=== PATIENT | male | born 1975 | race Hispanic/Latino ===

== ENCOUNTER 2018-03-12 10:21 | Day surgery (SDC) | payer OTHER ==
[2018-03-10 11:12] LABS: Absolute Monocytes 0.4 K/uL (0.1-1.3); Absolute Neutrophil 4.3 K/uL (1.8-8.0); Eosinophils % 3.6 % (0-4.4); Hematocrit 37.9 % (39.6-49.0); Lymphocytes % 27.9 % (15.3-44.8); MCH 31.4 pg (27.0-35.0); MCV 88.1 fL (80-100); MPV 8.1 fL (7.6-11.3); Monocytes % 6.3 % (3.3-12.3); RBC Red Blood Cell Count 4.31 M/uL (4.33-5.43)
[2018-03-10 11:26] LABS: Urine Appearance CLEAR; Urine Bilirubin NEGATIVE (NEG); Urine Blood 2+ (NEG); Urine Color YELLOW; Urine Glucose 1+ (NEG); Urine Protein NEGATIVE (NEG); Urine Urobilinogen 0.2 mg/dL (0.2-1.0)
[2018-03-10 11:28] LABS: Protime INR 1.06
[2018-03-10 11:33] LABS: Urine Microscopic Reflex ORDER UMIC
[2018-03-10 11:41] LABS: Urine Bacteria <20 /HPF (NONE SEEN); Urine Culture Reflex Order NOT NEEDED; Urine RBC 20-50 /HPF (NONE SEEN)
[2018-03-12] MEDS ORDERED: NA CHLORIDE 0.9% 1,000 ML ONE (10:41)
[2018-03-12 10:58] VITALS: O2SAT 97
[2018-03-12] MEDS ORDERED: MIDAZOLAM HCL 2 MG/2 ML INJ ONE (11:45)
[2018-03-12] MEDS ORDERED: PROPOFOL 200 MG/20 ML VIAL IV ONE (11:45)
[2018-03-12] MEDS ORDERED: LIDOCAINE 1% MPF 30 ML VIAL ONE (11:52)
[2018-03-12 14:19] VITALS: BP 136/84; TEMP 97.3
--- NOTE | 2018-03-17 09:36 | P.OP ---
Preoperative diagnosis: right hallux osteomyelitis Primary procedure: right hallux amputation Findings: as above Operative Technique: Patient placed under anesthesia with local anesthetic. Ulceration noted plantar aspect of right hallux. Patient prepped and draped in aseptic manor. linear incision placed from dorsal to plantar aspect of hallux stump and carried straight to bone. Utilizing sharp dissection the hallux was disarticulated from the 1st mpj. No gross signs of infection noted. The operative sited was irrigated with copious amounts of saline followed by remodeling of the wound margins to allow for closure. The incision site was closed utilizing 3-0 prolene and a sterile dressing was applied. Complications: None Transferred to: Recovery Room Condition: Good
== END 2018-03-12 13:55 | disposition home or self-care (01) ==
LOC: OR 10:21
PROVIDERS: ATTEND Podiatrist Foot & Ankle Surgery
PROC: 0Y6P0Z0 Detachment at Right 1st Toe, Complete, Open Approach (ICD-10-PCS; principal; 2018-03-12 12:00)
DX: E11.69 Type 2 diabetes mellitus with other specified complication (principal); M86.8X7 Other osteomyelitis, ankle and foot; E11.621 Type 2 diabetes mellitus with foot ulcer; G47.33 Obstructive sleep apnea (adult) (pediatric); Z79.4 Long term (current) use of insulin
CPT/HCPCS: 28820; 36415; 82962; 85025; 85610; 85730; 88305; 88311; J2250; J7030; 81003; 81015

== ENCOUNTER 2018-12-07 20:10 | Inpatient (IN) | payer OTHER ==
[2018-12-07 21:13] LABS: Urine Bacteria <20 /HPF (NONE SEEN); Urine Culture Reflex Order REFLEXED; Urine Sperm PRESENT (NONE SEEN)
[2018-12-07 21:14] LABS: Absolute Lymphocytes (CBC) 1.3 K/uL (0.7-4.9); Basophils % 0.2 % (0-1.3); Eosinophils % 0.1 % (0-4.4); Hematocrit 38.3 % (39.6-49.0); Lymphocytes % 8.1 % (15.3-44.8); MPV 8.4 fL (7.6-11.3); Monocytes % 5.5 % (3.3-12.3); RBC Red Blood Cell Count 4.31 M/uL (4.33-5.43)
[2018-12-07 21:15] LABS: Urine Blood TRACE (NEG); Urine Glucose 2+ (NEG); Urine Protein 2+ (NEG); Urine Specific Gravity 1.015 (1.005-1.030)
[2018-12-07 21:28] LABS: Albumin 3.3 g/dL (3.4-5.0); Bilirubin Direct 0.3 mg/dL (0-0.2); Bilirubin Total 1.5 mg/dL (0.2-1.0); Potassium 3.9 mmol/L (3.5-5.1); Protein, Total 7.1 g/dL (6.4-8.2)
[2018-12-07 21:37] LABS: Blood Morphology Comment NOT SEEN (NOT SEEN); Platelet Estimate ADEQ; Urine White Blood Cell Casts OK
--- NOTE | 2018-12-07 23:09 | ER ---
Nurse's Notes [facility] Name: Maik Stock Age: 43 yrs Sex: Male : 1975 Arrival Date: 12/07/2018 Time: 20:14 Bed 19 Private MD: Diagnosis: Acute appendicitis Presentation: 12/07 20:16 Presenting complaint: Patient states: RLQ abdominal pain that radiates to the back. aj1 Denies N/V/D. Patient reports that he felt like he was running fever but he didn't check it. Transition of care: patient was not received from another setting of care. Onset of symptoms was December 06, 2018. Risk Assessment: Do you want to hurt yourself or someone else? Patient reports no desire to harm self or others. Initial Sepsis Screen: Does the patient meet any 2 criteria? HR > 90 bpm. No. Patient's initial sepsis screen is negative. Does the patient have a suspected source of infection? Yes: Acute abdominal pain. Care prior to arrival: None. 20:16 Method Of Arrival: Ambulatory aj 20:16 Acuity: JACQUE 3 aj1 Triage Assessment: 20:19 General: Appears in no apparent distress. uncomfortable, Behavior is calm, cooperative, aj1 appropriate for age. Pain: Complains of pain in right lower quadrant Pain radiates to back Pain currently is 8 out of 10 on a pain scale. Neuro: Level of Consciousness is awake, alert, obeys commands, Oriented to person, place, time, situation. Cardiovascular: Patient's skin is warm and dry. Respiratory: Airway is patent Respiratory effort is even, unlabored, Respiratory pattern is regular, symmetrical. GI: Reports lower abdominal pain, nausea. Historical: - Allergies: 20:19 No Known Allergies; aj1 - Home Meds: 20:19 Tresiba FlexTouch U-100 subcutaneous subcutaneous [Active]; Metformin Oral [Active]; aj1 - PMHx: 20:19 Diabetes - NIDDM; aj1 - Immunization history:: Flu vaccine status is unknown. - Social history:: Smoking status: Patient/guardian denies using tobacco. - Ebola Screening: : Patient denies travel to an Ebola-affected area in the 21 days before illness onset. Screenin:37 Abuse screen: Denies threats or abuse. Nutritional screening: No deficits noted. jd3 Tuberculosis screening: No symptoms or risk factors identified. Fall Risk Ambulatory Aid- None/Bed Rest/Nurse Assist (0 pts). Gait- Normal/Bed Rest/Wheelchair (0 pts) Mental Status- Oriented to own ability (0 pts). Total Greenwood Fall Scale indicates No Risk (0-24 pts). Assessment: 20:29 General: Appears uncomfortable, Behavior is calm, cooperative, appropriate for age. jd3 Pain: Complains of pain in right lower quadrant Pain radiates to back Quality of pain is described as radiating, sharp. Neuro: Level of Consciousness is awake, alert, obeys commands, Oriented to person, place, time, situation, Appropriate for age. Cardiovascular: Denies chest pain, Capillary refill < 3 seconds Patient's skin is warm and dry. Respiratory: Airway is patent Respiratory effort is even, unlabored, Respiratory pattern is regular, symmetrical, Breath sounds are clear bilaterally. Denies shortness of breath. GI: Abdomen is round non-distended, Bowel sounds present X 4 quads. Abd is soft X 4 quads Abdomen is tender to palpation in right lower quadrant Reports lower abdominal pain, Patient currently denies constipation, diarrhea, vomiting. : No signs and/or symptoms were reported regarding the genitourinary system. EENT: No signs and/or symptoms were reported regarding the EENT system. Derm: Skin is intact, Skin is dry, Skin is normal, Skin temperature is warm. Musculoskeletal: Circulation, motion, and sensation intact. Range of motion: intact in all extremities. 22:13 Reassessment: Patient appears in no apparent distress at this time. No changes from jd3 previously documented assessment. Patient and/or family updated on plan of care and expected duration. Pain level reassessed. Patient is alert, oriented x 3, equal unlabored respirations, skin warm/dry/pink. awaiting results. 23:17 Reassessment: Patient appears in no apparent distress at this time. Patient and/or jd3 family updated on plan of care and expected duration. Pain level reassessed. Patient is alert, oriented x 3, equal unlabored respirations, skin warm/dry/pink. awaiting room assignment. 12/08 00:10 Reassessment: Patient appears in no apparent distress at this time. Patient and/or jd3 family updated on plan of care and expected duration. Pain level reassessed. Patient is alert, oriented x 3, equal unlabored respirations, skin warm/dry/pink. reported understanding of need for admission. 00:33 Reassessment: Patient appears in no apparent distress at this time. Patient and/or jd3 family updated on plan of care and expected duration. Pain level reassessed. Patient is alert, oriented x 3, equal unlabored respirations, skin warm/dry/pink. report given to Carmita CULLEN. Vital Signs: 12/07 20:19 BP 111 / 49; Pulse 51; Resp 18; Temp 99.9(O); Pulse Ox 98% on R/A; Weight 99.79 kg (R); aj1 Height 5 ft. 10 in. (177.80 cm) (R); Pain 8/10; 22:13 BP 94 / 64; Pulse 50; Resp 16 S; Pulse Ox 99% on R/A; jd3 23:18 BP 105 / 40; Pulse 55; Resp 17 S; Pulse Ox 97% on R/A; jd3 12/08 00:11 BP 100 / 45; Pulse 86; Resp 17 S; Pulse Ox 98% on R/A; jd3 00:34 Temp 99.5(O); jd3 00:40 BP 93 / 63; jd3 12/07 20:19 Body Mass Index 31.57 (99.79 kg, 177.80 cm) [facility] ED Course: 12/07 20:14 Patient arrived in ED. do 20:18 Triage completed. aj1 20:19 Arm band placed on Patient placed in an exam room. aj1 20:24 Arnol Brandt MD is Attending Physician. gs 20:27 Colt Barney, SUBHASH is Primary Nurse. jd3 20:38 Patient has correct armband on for positive identification. Bed in low position. Call j light in reach. Side rails up X 1. Adult w/ patient. 21:01 Urine Microscopic Only Sent. jd3 21:05 Inserted saline lock: 22 gauge in right antecubital area, using aseptic technique. jd3 Blood collected. 22:06 CT Stone Protocol In Process Unspecified. EDMS 23:08 Shakir Murrieta MD is Hospitalizing Provider. gs 23:17 No provider procedures requiring assistance completed. Patient admitted, IV remains in jd3 place. 23:44 Chest Single View XRAY In Process Unspecified. EDMS Administered Medications: 23:15 Drug: NS 0.9% 1000 ml Route: IV; Rate: 1 bolus; Site: right antecubital; [facility] 12/08 00:35 Follow up: Response: No adverse reaction; IV Status: Completed infusion; IV Intake: jd3 1000ml 12/07 23:15 Drug: NS 0.9% 1000 ml Route: IV; Rate: 125 ml/hr; Site: right antecubital; j 12/08 00:36 Follow up: Response: No adverse reaction; IV Status: Infusion continued upon admission [facility] 12/07 23:16 Drug: Mefoxin 1 grams Route: IVPB; Infused Over: 30 mins; Site: right antecubital; [facility] 23:57 Follow up: Response: No adverse reaction; IV Status: Completed infusion; IV Intake: [id number] Intake: 23:57 IV: 50ml; Total: 50ml. [facility] 12/08 00:35 IV: 1000ml; Total: 1050ml. jd3 Outcome: 12/07 23:08 Decision to Hospitalize by Provider. 12/08 00:34 Condition: stable jd3 Instructed on the need for admit, Demonstrated understanding of instructions. 00:34 Admitted to Med/surg accompanied by nurse, via wheelchair, room 422, with chart, Report jd3 called to Carmita CULLEN 00:51 Patient left the ED. jd3 Signatures: Dispatcher [employer] EDJody Man, RN RN aj1 Smita Upton Gregory, MD MD gs Davies, Jonathon, RN RN jd3 Corrections: (The following items were deleted from the chart) 00:12 00:11 BP 100 / 45; Pulse 47bpm; Resp 17bpm; Spontaneous; Pulse Ox 98% RA; jd3 jd3
--- NOTE | 2018-12-07 23:09 | EDPHYS ---
Physician Documentation [facility] Name: Maik Stock Age: 43 yrs Sex: Male : 1975 Arrival Date: 12/07/2018 Time: 20:14 Bed 19 Private MD: ED Physician Arnol Brandt HPI: 12/07 23:04 This 43 yrs old Male presents to ER via Ambulatory with complaints of gs Abdominal Pain. 23:04 The patient presents with abdominal pain right lower quadrant. Onset: The gs symptoms/episode began/occurred this morning. The symptoms do not radiate. Associated signs and symptoms: Pertinent negatives: dysuria, fever. The symptoms are described as crampy, sharp. Modifying factors: the symptoms are aggravated by nothing. Severity of pain: At its worst the pain was severe in the emergency department the pain is unchanged. The patient has not experienced similar symptoms in the past. The patient has not recently seen a physician. Historical: - Allergies: 20:19 No Known Allergies; aj1 - Home Meds: 20:19 Tresiba FlexTouch U-100 subcutaneous subcutaneous [Active]; Metformin Oral [Active]; aj1 - PMHx: 20:19 Diabetes - NIDDM; aj1 - Immunization history:: Flu vaccine status is unknown. - Social history:: Smoking status: Patient/guardian denies using tobacco. - Ebola Screening: : Patient denies travel to an Ebola-affected area in the 21 days before illness onset. ROS: 23:04 All other systems are negative. gs Exam: 23:04 Head/Face: Normocephalic, atraumatic. Eyes: Pupils equal round and reactive to light, gs extra-ocular motions intact. Lids and lashes normal. Conjunctiva and sclera are non-icteric and not injected. Cornea within normal limits. Periorbital areas with no swelling, redness, or edema. ENT: Nares patent. No nasal discharge, no septal abnormalities noted. Tympanic membranes are normal and external auditory canals are clear. Oropharynx with no redness, swelling, or masses, exudates, or evidence of obstruction, uvula midline. Mucous membranes moist. Neck: Trachea midline, no thyromegaly or masses palpated, and no cervical lymphadenopathy. Supple, full range of motion without nuchal rigidity, or vertebral point tenderness. No Meningismus. Chest/axilla: Normal chest wall appearance and motion. Nontender with no deformity. No lesions are appreciated. Cardiovascular: Regular rate and rhythm with a normal S1 and S2. No gallops, murmurs, or rubs. Normal PMI, no JVD. No pulse deficits. Respiratory: Lungs have equal breath sounds bilaterally, clear to auscultation and percussion. No rales, rhonchi or wheezes noted. No increased work of breathing, no retractions or nasal flaring. Back: No spinal tenderness. No costovertebral tenderness. Full range of motion. Skin: Warm, dry with normal turgor. Normal color with no rashes, no lesions, and no evidence of cellulitis. MS/ Extremity: Pulses equal, no cyanosis. Neurovascular intact. Full, normal range of motion. Neuro: Awake and alert, GCS 15, oriented to person, place, time, and situation. Cranial nerves II-XII grossly intact. Motor strength 5/5 in all extremities. Sensory grossly intact. Cerebellar exam normal. Normal gait. 23:04 Constitutional: The patient appears alert, awake. 23:04 Constitutional: The patient appears uncomfortable. 23:04 Abdomen/GI: Palpation: moderate abdominal tenderness, in the right lower quadrant, rebound tenderness, is appreciated in the right lower quadrant, Indicators: Rovsing's sign is positive. Vital Signs: 20:19 BP 111 / 49; Pulse 51; Resp 18; Temp 99.9(O); Pulse Ox 98% on R/A; Weight 99.79 kg (R); aj1 Height 5 ft. 10 in. (177.80 cm) (R); Pain 8/10; 22:13 BP 94 / 64; Pulse 50; Resp 16 S; Pulse Ox 99% on R/A; jd3 23:18 BP 105 / 40; Pulse 55; Resp 17 S; Pulse Ox 97% on R/A; jd3 07/01 00:11 BP 100 / 45; Pulse 86; Resp 17 S; Pulse Ox 98% on R/A; jd3 00:34 Temp 99.5(O); jd3 00:40 BP 93 / 63; jd3 12/07 20:19 Body Mass Index 31.57 (99.79 kg, 177.80 cm) aj MDM: 12/07 20:41 Patient medically screened. gs 23:04 Differential diagnosis: appendicitis, bowel obstruction, diverticulitis, non-specific gs abd pain, pancreatitis. Data reviewed: vital signs, nurses notes, lab test result(s), radiologic studies. Response to treatment: the patient's symptoms have markedly improved after treatment, and as a result, I will discharge patient. 12/07 20:41 Order name: Urine Microscopic Only 12/07 20:41 Order name: Basic Metabolic Panel 12/07 20:41 Order name: CBC with Diff 12/07 20:41 Order name: Creatinine for Radiology 12/07 20:41 Order name: Hepatic Function; Complete Time: 22:17 12/07 20:41 Order name: Lipase; Complete Time: 22:17 12/07 20:51 Order name: Urine Microscopic Only; Complete Time: 22:17 [facility] 12/07 20:51 Order name: Basic Metabolic Panel; Complete Time: 22:17 [facility] 12/07 20:51 Order name: CBC with Automated Diff; Complete Time: 22:17 [facility] 12/07 20:51 Order name: Creatinine (Radiology Only); Complete Time: 22:17 [facility] 12/07 21:02 Order name: Urine Dipstick--Ancillary (enter results); Complete Time: 22:17 ar5 12/07 21:15 Order name: Urine Culture [facility] 12/07 21:18 Order name: CBC Smear Scan; Complete Time: 22:17 [facility] 12/07 23:10 Order name: PT-INR 12/07 20:41 Order name: Urine Dipstick-Ancillary (obtain specimen); Complete Time: 21:01 12/07 20:41 Order name: IV Saline Lock; Complete Time: 21:19 12/07 20:41 Order name: Labs collected and sent; Complete Time: 21:19 12/07 20:41 Order name: CT Stone Protocol 12/07 23:10 Order name: Chest Single View XRAY 12/07 23:10 Order name: EKG - Nurse/Tech; Complete Time: 23:57 12/07 23:21 Order name: NPO EDCO Administered Medications: 23:15 Drug: NS 0.9% 1000 ml Route: IV; Rate: 1 bolus; Site: right antecubital; jd3 12/08 00:35 Follow up: Response: No adverse reaction; IV Status: Completed infusion; IV Intake: jd3 1000ml 12/07 23:15 Drug: NS 0.9% 1000 ml Route: IV; Rate: 125 ml/hr; Site: right antecubital; jd3 12/08 00:36 Follow up: Response: No adverse reaction; IV Status: Infusion continued upon admission jd3 12/07 23:16 Drug: Mefoxin 1 grams Route: IVPB; Infused Over: 30 mins; Site: right antecubital; j 23:57 Follow up: Response: No adverse reaction; IV Status: Completed infusion; IV Intake: [id number] Disposition: 12/07/18 23:08 Hospitalization ordered by Shakir Murrieta for Inpatient Admission. Preliminary diagnosis is Acute appendicitis. - Bed requested for Telemetry/MedSurg (Inpatient). - Status is Inpatient Admission. jd3 - Condition is Stable. - Problem is new. - Symptoms have improved. UTI on Admission? No Critical care time excluding procedures: 23:04 Critical care time: Bedside Care: 10 minutes, Consultation: 10 minutes, Family gs Intervention: 10 minutes. Total time: 30 minutes Signatures: Dispatcher [employer] EDJody Man RN RN aj1 Nu Chua RN RN cg Arnol Brandt MD MD gs Davies, Jonathon, RN RN jd3 Corrections: (The following items were deleted from the chart) 23:54 23:08 Hospitalization Ordered by Shakir Murrieta MD for Inpatient Admission. Preliminary cg diagnosis is Acute appendicitis. Bed requested for Telemetry/MedSurg (Inpatient). Status is Inpatient Admission. Condition is Stable. Problem is new. Symptoms have improved. UTI on Admission? No. gs 12/08 00:51 12/07 23:54 12/07/2018 23:08 Hospitalization Ordered by Shakir Murrieta MD for Inpatient jd3 Admission. Preliminary diagnosis is Acute appendicitis. Bed requested for Telemetry/MedSurg (Inpatient). Status is Inpatient Admission. Condition is Stable. Problem is new. Symptoms have improved. UTI on Admission? No. cg
[2018-12-07] MEDS ORDERED: NA CHLORIDE 0.9% 50 ML IV ONE (23:17)
[2018-12-07] MEDS ORDERED: CEFOXITIN SODIUM 1 GM/VIAL ONE (23:17)
[2018-12-07] MEDS ORDERED: NA CHLORIDE 0.9% 2,000 ML ONE (23:17)
[2018-12-07] MEDS ORDERED: ONDANSETRON 4 MG/2 ML VIAL IV PRN (23:18)
[2018-12-07] MEDS ORDERED: MORPHINE 4 MG/ML SYR IV PRN (23:18)
[2018-12-08 00:02] LABS: Protime INR 1.16
[2018-12-08] MEDS: D5 0.45 NS 1,000 ML IV SCH ×2 (01:29→07:45)
[2018-12-08] MEDS ORDERED: CEFOXITIN SODIUM 1 GM/VIAL ONE (01:49)
[2018-12-08] MEDS: CEFOXITIN 1 GM in NA CHLORIDE 0.9% 100 ML IVPB SCH ×2 (01:56→06:09)
[2018-12-08] MEDS ORDERED: NA CHLORIDE 0.9% 100 ML IV ONE ×2 (02:11→06:19)
[2018-12-08] MEDS ORDERED: PROPOFOL 200 MG/20 ML VIAL IV ONE (07:07)
[2018-12-08] MEDS ORDERED: GLYCOPYRROLATE 0.2 MG/ML SYR ONE ×2 (07:08→08:04)
[2018-12-08] MEDS ORDERED: MIDAZOLAM HCL 2 MG/2 ML INJ ONE (07:08)
[2018-12-08] MEDS ORDERED: LIDOCAINE 2% MPF 5 ML VIAL ONE (07:09)
[2018-12-08] MEDS ORDERED: Ringers Lactate 0 ML IV ONE (07:09)
[2018-12-08] MEDS ORDERED: FENTANYL CITR 250 MCG/5 ML ONE (07:10)
[2018-12-08] MEDS ORDERED: NEOSTIGMINE 1 MG/ML -10 ML VIAL ONE (07:11)
[2018-12-08] MEDS ORDERED: ONDANSETRON 4 MG/2 ML VIAL ONE (07:11)
[2018-12-08] MEDS ORDERED: ROCURONIUM 50 MG/5 ML VIAL IV ONE (07:11)
[2018-12-08] MEDS ORDERED: NA CHLORIDE 0.9% 1,000 ML ONE (07:19)
[2018-12-08] MEDS ORDERED: EPHEDRINE SULF 50 MG/ML VIAL ONE (08:01)
--- NOTE | 2018-12-08 08:27 | RAD REPORT ---
EXAM DESCRIPTION: RAD - Chest Single View - 12/07/2018 11:44 pm CLINICAL HISTORY: Abdominal pain COMPARISON: None. TECHNIQUE: AP portable chest image was obtained 2323 hours . FINDINGS: Lungs are clear. Heart and vasculature are normal. No measurable pleural effusion and no p neumothorax. No acute bony abnormality seen. No acute aortic findings suspected. IMPRESSION: No acute cardiopulmonary process. No significant change from comparison.
--- NOTE | 2018-12-08 08:33 | P.BOP ---
Preoperative diagnosis: acute appendicitis, DM Postoperative diagnosis: same plus cardiac arrhytmias Primary procedure: Laparoscopic appendectomy Digital Technician: Laurita Dodge) Estimated blood loss: <10ccc Specimen: shital Findings: as above Anesthesia: General Complications: None Transferred to: Recovery Room Condition: Good
[2018-12-08] MEDS: CIPROFLOXACIN 400mg IV 400 MG/200 ML BAG IV SCH ×2 (09:45→20:08)
[2018-12-08] MEDS: HYDROCODONE/APAP 7.5/325 MG TAB PO PRN ×2 (09:45→20:10)
[2018-12-08] MEDS: NA CHLORIDE 0.9% 1,000 ML IV SCH ×2 (09:45→20:08)
--- NOTE | 2018-12-08 10:04 | RAD REPORT ---
EXAM DESCRIPTION: CT - Stone Protocol - 12/08/2018 12:51 am ADDENDUM #1 ADDENDUM: THIS REPORT CONTAINS FINDINGS THAT MAY BE CRITICAL TO PATIENT'S CARE: The findings were verbally discussed via telephone conference with Arnol Brandt by Dr. Beasley on 10:19 PM CDT. The results were acknowledged and understood. Electronically signed by: Jagdeep Beasley DO 12/07/2018 10:19 PM CDT End of Addendum EXAM DESCRIPTION: CT Abdomen and Pelvis Without Intravenous Contrast CLINICAL HISTORY: The patient is 43 years old and is Male; ABD PAIN TECHNIQUE: Axial computed tomography images of the abdomen and pelvis without intravenous contrast. Sagittal and coronal reformatted images were created and reviewed. This CT exam was performed usi ng one or more of the following dose reduction techniques: automated exposure control, adjustment o f the mA and/or kV according to patient size, and/or use of iterative reconstruction technique. COMPARISON: None. FINDINGS: LUNG BASES: Bibasilar atelectasis versus scarring. HEART: Mild coronary calcifications. ABDOMEN: LIVER: Unremarkable. GALLBLADDER AND BILE DUCTS: Unremarkable. No calcified stones. No ductal dilation. PANCREAS: Unremarkable. No ductal dilation. SPLEEN: Unremarkable. No splenomegaly. ADRENALS: Unremarkable. No mass. KIDNEYS AND URETERS: Possible punctate nonobstructive left renal stones. No hydronephrosis or hydr oureter. STOMACH AND BOWEL: Unremarkable. No obstruction. No mucosal thickening. PELVIS: APPENDIX: Diffuse thickening of the appendix measuring up to 1 cm in transverse dimension. Periapp endiceal stranding is also noted. No pneumoperitoneum or fluid collection. BLADDER: Mild thickening of the bladder wall which may be due to underdistention. No stones. REPRODUCTIVE: Unremarkable as visualized. ABDOMEN and PELVIS: INTRAPERITONEAL SPACE: See above. BONES/JOINTS: Suggested mild osteopenia. No acute fracture. No dislocation. SOFT TISSUES: Unremarkable. VASCULATURE: Unremarkable. No abdominal aortic aneurysm. LYMPH NODES: Unremarkable. No enlarged lymph nodes. IMPRESSION: 1. Findings compatible with acute appendicitis. No perforation or abscess formation. 2. Punctate nonobstructive left nephrolithiasis. 3. Bibasilar atelectasis versus scarring and mild coronary calcifications. Electronically signed by: Jagdeep Beasley DO 12/07/2018 10:16 PM CDT Due to temporary technical issues with the PACS/Fluency reporting system, reports are being signed by the in house radiologist as a courtesy to ensure prompt reporting. The interpreting radiologist is f ully responsible for the content of the report.
[2018-12-08] MEDS: METRONIDAZOLE 500mg IVPB 500 MG/100 ML BAG IV SCH ×2 (11:46→17:06)
[2018-12-08] MEDS ORDERED: CEFOXITIN/SWI 1gm 1 GM/10 ML SYR IV SCH (12:00)
--- NOTE | 2018-12-08 18:45 | HP ---
Date of Admission: 12/07/2018 Diagnosis: Acute appendicitis. History Of Present Illness: This is a 43-year-old patient came early this morning to the ER complain ing of periumbilical pain associated with nausea and bloating. He does not remember pain in this are a before. He denies any dysuria, hematuria, hematochezia, or melena. He denies any recent traveling out of the country. Denies any family member sick at home. The patient has a history of nonhealing wounds or slow healing of wounds on the lower extremities that is how we know him in the past. Allergies: NONE. Medications: Include Tresiba, it is a diabetes medication. Past Medical History: Insulin-dependent diabetes. Social History: He does not smoke. He does not drink alcohol. Family History: Noncontributory. Review of Systems: Ten points, otherwise unremarkable. Physical Examination: General: The patient is awake and alert. HEENT: Pupils are equal and reactive, anicteric. Neck: Supple. Chest: Clear. Heart: S1, S2. Abdomen: Right lower quadrant and periumbilical tenderness. Rectal: Deferred. Extremity: Good capillary refill. Neuro: Cranial nerves 2 through 12 grossly within normal limits. Laboratory Data: The patient has WBC count of 16.1 with hemoglobin of 12.8, INR is 1.16, and glucose 285, BUN of 21. CAT scan of the abdomen and pelvis, official result still pending. Although preliminary shows findin gs compatible with acute appendicitis. [place] to have a left kidney stone. Assessment: This is a 43-year-old patient with acute appendicitis, diabetes and kidney stones. The patient fully explained the benefits, alternatives, and risks of laparoscopic, possible open appendec cesar which include but are not limited to infection, bleeding, damage to adjacent structures, anesthe luma complication, [place], even . He also understands this may not relieve any symptoms. He might n eed more than one surgical intervention. He understands the importance of glucose control since gluc ose is elevated. We are going to get the hospitalist to see this patient and address the issue of di abetes since we noted that even on his medications it was a little bit too high. May be related to t his acute disease of may be that he just not well controlled. He was also encouraged to follow with his primary doctor. From the kidney stone he was explained to discuss that with his urologist as an outpatient. VANESSA Voice ID: [id number]
--- NOTE | 2018-12-08 19:44 | EKG ---
Test Date: 2018-12-07 Test Time: 23:38:27 Head Of Digital: FLORES MEASUREMENT RESULTS: Intervals: Rate: 91 PA: 166 QRSD: 98 QT: 376 QTc: 462 Wilder: P: 52 PA: 166 QRS: 57 T: 87 INTERPRETIVE STATEMENTS: Sinus rhythm with frequent premature ventricular complexes Prolonged QT Abnormal ECG No previous ECG available for comparison Electronically Signed On 12-08-18 19:40:40 CDT by Aaron Joyce
[2018-12-09] MEDS: HYDROCODONE/APAP 7.5/325 MG TAB PO PRN ×2 (00:42→05:32)
[2018-12-09] MEDS: METRONIDAZOLE 500mg IVPB 500 MG/100 ML BAG IV SCH ×3 (00:42→12:13)
[2018-12-09] MEDS: CIPROFLOXACIN 400mg IV 400 MG/200 ML BAG IV SCH (08:31)
--- NOTE | 2018-12-09 11:29 | ECHO ---
HEIGHT: 5 ft 10in WEIGHT: 219 lb oz DATE OF STUDY: 12/09/[address]: Aaron Joyce MD 2-DIMENSIONAL: YES M.MODE: YES DOPPLER: YES COLOR FLOW: YES TDS: NO PORTABLE: NO DEFINITY: NO BUBBLE STUDY: NO DIAGNOSIS: PREMATURE VENTRICULAR COMPLEXES/ ABNORMAL EKG CARDIAC HISTORY: CATHERIZATION: NO SURGERY: NO PROSTHETIC VALVE: NO PACEMAKER: NO MEASUREMENTS (cm) DIASTOLIC (NORMALS) SYSTOLIC (NORMALS) IVSd 1.3 (0.6-1.2) LA Diam 3.6 (1.9-4.0) LVEF 51% LVIDd 4.0 (3.5-5.7) LVIDs 3.0 (2.0-3.5) %FS 26% LVPWd 1.2 (0.6-1.2) Ao Diam 2.6 (2.0-3.7) 2 DIMENSIONAL ASSESSMENT: RIGHT ATRIUM: NORMAL LEFT ATRIUM: NORMAL RIGHT VENTRICLE: NORMAL LEFT VENTRICLE: NORMAL TRICUSPID VALVE: NORMAL MITRAL VALVE: NORMAL PULMONIC VALVE: NORMAL AORTIC VALVE: NORMAL PERICARDIAL EFFUSION: NONE AORTIC ROOT: NORMAL LEFT VENTRICULAR WALL MOTION: NORMAL. DOPPLER/COLOR FLOW: NORMAL. COMMENTS: NORMAL 2D ECHO WITH DOPPLER. NO WALL MOTION ABNORMALITY. NO EFFUSION. TECHNOLOGIST: TONY FENTON
[2018-12-09] MEDS: NA CHLORIDE 0.9% 1,000 ML IV SCH (11:40)
--- NOTE | 2018-12-09 14:17 | P.DS ---
Admission Date: 12/08/18 Discharge Date: 12/09/18 Disposition: ROUTINE DISCHARGE Discharge Condition: GOOD Vital Signs/Physical Exam: Temp Pulse Resp BP Pulse Ox 97.8 F 78 18 159/96 H 97 12/09/18 12:00 12/09/18 12:00 12/09/18 12:00 12/09/18 12:00 12/09/18 12:00 General: Alert, In no apparent distress, Oriented x3, Cooperative HEENT: PERRLA, EOMI Neck: Supple Respiratory: Normal air movement Cardiovascular: Normal pulses, Regular rate/rhythm Gastrointestinal: Soft and benign Musculoskeletal: No erythema, No tenderness, No warmth Integumentary: No rashes, No erythema, No warmth, No cyanosis Neurological: Normal speech Laboratory Data at Discharge: WBC 16.1 K/uL (4.3-10.9) H 12/07/18 20:57 Hgb 12.8 g/dL (13.6-17.9) L 12/07/18 20:57 Hct 38.3 % (39.6-49.0) L 12/07/18 20:57 Plt Count 301 K/uL (152-406) 12/07/18 20:57 PT 13.6 SECONDS (9.5-12.5) H 12/07/18 23:48 INR 1.16 12/07/18 23:48 Sodium 137 mmol/L (136-145) 12/07/18 20:57 Potassium 3.9 mmol/L (3.5-5.1) 12/07/18 20:57 BUN 21 mg/dL (7-18) H 12/07/18 20:57 Creatinine 1.22 mg/dL (0.55-1.3) 12/07/18 20:57 Glucose 285 mg/dL (74-106) H 12/07/18 20:57 Total Bilirubin 1.5 mg/dL (0.2-1.0) H 12/07/18 20:57 AST 14 U/L (15-37) L 12/07/18 20:57 ALT 26 U/L (12-78) 12/07/18 20:57 Alkaline Phosphatase 92 U/L (45-117) 12/07/18 20:57 Lipase 89 U/L (73-393) 06/30/19 20:57 Home Medications: Insulin Degludec [Tresiba Flextouch U-100] 34 unit SQ 0730 02/06/17 Metformin HCl [Metformin HCl ER] 1,000 mg PO BID 02/06/17 Amox/Clavulanate [Augmentin 875-125 Tab] 875 mg PO BID #12 tab 12/09/18 Codeine/APAP [Tylenol W/Codeine #3 tab] 1 tab PO Q4HP PRN #30 tab 12/09/18 New Medications: Amox/Clavulanate [Augmentin 875-125 Tab] 875 mg PO BID #12 tab Codeine/APAP [Tylenol W/Codeine #3 tab] 1 tab PO Q4HP PRN #30 tab PRN Reason: Pain Patient Discharge Instructions: Keep area dry for 24h then may shower. Diet: AHA Activity: No lifting more than 10 lbs Followup: Shakir Murrieta MD [ACTIVE - CAN ADMIT] - 1 Week
--- NOTE | 2018-12-10 01:47 | CON ---
Date of Consultation: 12/08/2018 The patient was admitted on 12/08/2018. I saw the patient on 12/08/2018. Reason For Consultation: Bigeminy. History Of Present Illness: Mr. Stock is a 43-year-old, Latin-[place] male, has a history of di abetes, for which he takes insulin, metformin, and had an appendectomy and has done well in that rega rd. He has a white count of 16. His blood glucose level was 174. He denied any chest pain, shortne ss of breath, palpitations, PND, orthopnea, pedal edema, or syncope, but was noted on the monitor to have PVCs sometimes in a bigeminal pattern. No previous cardiac history. Past Medical History: Otherwise stated above. Allergies: NONE. Review of Systems: Negative. Social History: Negative. Family History: Negative. Medications: At home include insulin and metformin. Physical Examination: Vital Signs: Stable, afebrile. HEENT: Negative. Neck: Supple with no bruit. Chest: Clear to auscultation and percussion. Cardiac: Revealed a regular rhythm and rate. No murmurs, gallops, or rubs. Abdomen: Benign. Extremities: Revealed no clubbing, cyanosis, or edema. Diagnostic Data: As stated earlier. Impression And Plan: Asymptomatic PVCs. I think we need to get an echocardiogram, make sure he does not have some form of cardiomyopathy or valvular heart disease. I prefer we do not treat him for th at because he is already bradycardic without a beta-buck and he is asymptomatic. If the echocardi ogram shows any wall motion abnormalities, we will probably recommend a stress test. If the echocard iogram is normal, he can go home. I will be happy to see him as an outpatient and maybe set him up f or a stress test as an outpatient then. His diabetes is well controlled. He is status post appendec cesar and he is recovering well. NB/MODL Voice ID: [id number] Report ID: [id number]
[2018-12-10 16:08] VITALS: BP 159/96; TEMP 97.8; O2SAT 97; BMI 31.4
--- NOTE | 2018-12-13 00:46 | OP ---
Date of Procedure: 12/08/2018 Surgeon: Shakir Murrieta MD Degreasing Solution Reclaimer: LAURA Graham. Preoperative Diagnoses: Acute appendicitis, diabetes mellitus. Postoperative Diagnoses: Acute appendicitis, diabetes mellitus, cardiac arrhythmias. Procedure: Laparoscopic appendectomy. Estimated Blood Loss: Less than 10 cc. Specimen: Appendix. Finding: Acute appendicitis. Anesthesia: General plus local. Indications: This is the case of a male, who comes to us with above diagnosis. Fully explained the benefits, alternatives, and risks of laparoscopic, possible open appendectomy which include but are n ot limited to infection, bleeding, damage to adjacent structures, anesthesia complication, [place], even d eath. He also understands this might not relieve any symptoms and he might need more than one surgic al intervention. He understood, signed a consent. Description Of Procedure: The patient was brought to the operating room, placed in supine position. Anesthesia was done without complication. Abdominal area was prepped and draped in a sterile fashio n. Marcaine 0.5% was injected for local anesthetic, followed by sharp incision of the skin in the in fraumbilical region. Incision was carried down to the fascia, which was opened under direct vision. Peritoneum was encountered, opened under direct vision. Vicryl #1 placed on each side of the fascia . Keo trocar was carefully introduced. Pneumoperitoneum was obtained. I placed two more trocars , 5 mm each one of them, in the suprapubic and left lower quadrant, under direct visualization. This allowed me to visualize the area of the appendix. It looked inflamed, distal part of the appendix. So, we proceeded to create a window in the base of the appendix and then transect that with an Endo MOHAN 45 mm 3.5, the mesoappendix with an Endo MOHAN 45 mm 2.5. Appendix removed from the abdominal cavi ty using an EndoCatch through the umbilical incision. The area was inspected once again. No bowel l eak. No bleeding. This is after irrigation and suction. At that moment, I proceeded to remove the trocars under direct vision. Deflated the pneumoperitoneum. Closed the fascia with #1 Vicryl. Irri gated subcutaneous tissues, closed that with 3-0 chromic and skin with maddy. Sponge count and ins trument counts were correct. The patient tolerated the procedure well. The patient was sent to [facility] in stable condition. During the EKG, we noticed some changes on him even preoperatively. He is a patient we have no knowledge of cardiac arrhythmias and so I encouraged the patient to be checked here before he gets discharged to make sure those are okay as an outpatient. Whenever we have a nate hunter from his medical standpoint for his cardiac arrhythmias, then we will proceed to discharge him. NOHEMI/RAFAEL Voice ID: [id number] Report ID: [id number]
== END 2018-12-09 15:05 | disposition home or self-care (01) | DRG 343 ==
LOC: ER 20:10 → ERHOLD 23:17 → INTOOBSV 23:17 → 4TH 12-08 00:45 → OBSVTOIN 12-08 19:02
PROVIDERS: ADMIT Surgery; ATTEND Surgery
PROC: 0DTJ4ZZ Resection of Appendix, Percutaneous Endoscopic Approach (ICD-10-PCS; principal; 2018-12-08 07:30)
DX: K35.80 Unspecified acute appendicitis (principal); E11.9 Type 2 diabetes mellitus without complications; I49.3 Ventricular premature depolarization; N20.0 Calculus of kidney; Z79.4 Long term (current) use of insulin
CPT/HCPCS: 36415; 71045; 74176; 76377; 80048; 80076; 81003; 81015; 82962; 83605; 83690; 85025; 85610; 87086; 87088; 88304; 93005; 93306; 96361; 96365; 99285; G0378; J0694; J0744; J2250; J2405; J2704; J2710; J3010; J7030

== ENCOUNTER 2020-07-07 10:34 | Emergency (ER) | payer OTHER ==
--- NOTE | 2020-07-07 15:12 | RAD REPORT ---
EXAM DESCRIPTION: RAD - Foot Left 3 View - 07/07/2020 3:01 pm CLINICAL HISTORY: puncture, r/o fb Pain and swelling. COMPARISON: Foot Left 3 View dated 05/27/2012 FINDINGS: Soft tissue swelling is seen along the plantar aspect of the forefoot. No radiopaque forei gn body is seen. Mild vascular atherosclerosis evident. No fracture.
--- NOTE | 2020-07-07 15:25 | EDPHYS ---
Physician Documentation [facility] Name: Maik Stock Age: 44 yrs Sex: Male : 1975 Arrival Date: 07/07/2020 Time: 10:34 Bed 28 Private MD: Salazar Robles E ED Physician Tushar Kevin HPI: 07/07 14:50 This 44 yrs old Male presents to ER via Ambulatory with complaints of Puncture jmm Wound To Foot. 14:50 The patient presents with an injury, pain. Onset: The symptoms/episode began/occurred jmm acutely, yesterday. Modifying factors: The symptoms are alleviated by nothing, the symptoms are aggravated by nothing. This is a 44 year old male with a history of DM that presents to the ED with complaints of pain to the ball of the left foot. Patient states he stepped on a nail which went through his shoe. . Historical: - Allergies: 11:29 No Known Allergies; ca1 - Home Meds: 11:29 Metformin Oral [Active]; Tresiba FlexTouch U-100 subcutaneous [Active]; ca1 - PMHx: 11:29 Diabetes - NIDDM; ca1 - PSHx: 11:29 Appendectomy; Knee surgery; ca1 - Immunization history:: Last tetanus immunization: unknown, Flu vaccine is not up to date. - Social history:: Smoking status: Patient denies any tobacco usage or history of. ROS: 14:50 Constitutional: Negative for fever, chills, and weight loss, Cardiovascular: Negative jmm for chest pain, palpitations, and edema, Respiratory: Negative for shortness of breath, cough, wheezing, and pleuritic chest pain. 14:50 Skin: Positive for erythema. 14:50 All other systems are negative. Exam: 14:50 Constitutional: This is a well developed, well nourished patient who is awake, alert, jmm and in no acute distress. Head/Face: atraumatic. Eyes: EOMI, no conjunctival erythema appreciated ENT: Moist Mucus Membranes Neck: Trachea midline, Supple Chest/axilla: Normal chest wall appearance and motion. Cardiovascular: Regular rate and rhythm. No edema appreciated Respiratory: Normal respirations, no respiratory distress appreciated Abdomen/GI: Non distended, soft Back: Normal ROM 14:50 Skin: puncture wound noted to the ball of the left foot, no active bleeding, no purulent drainage appreciated, mild surrounding erythema. . 14:50 Neuro: Orientation: is normal, Mentation: is normal, Memory: is normal. 14:50 Psych: Behavior/mood is pleasant, cooperative. Vital Signs: 11:23 BP 125 / 86; Pulse 90; Resp 16 S; Temp 97.7(TE); Pulse Ox 99% ; Weight 95.25 kg (R); ca1 Height 5 ft. 10 in. (177.80 cm) (R); Pain 7/10; 11:23 Body Mass Index 30.13 (95.25 kg, 177.80 cm) ca1 MDM: 14:29 Patient medically screened. [facility] 15:24 Data reviewed: vital signs, nurses notes. Counseling: I had a detailed discussion with [facility] the patient and/or guardian regarding: the historical points, exam findings, and any diagnostic results supporting the discharge/admit diagnosis, radiology results, the need for outpatient follow up, to return to the emergency department if symptoms worsen or persist or if there are any questions or concerns that arise at home. ED course: Patient is alert and non toxic in appearance in the ED. No signs of resp distress. Patient is given wound infection return precautions. Patient understood and agrees with the plan of care. . 07/07 13:58 Order name: Foot Left 3 View XRAY; Complete Time: 15:24 [facility] Administered Medications: No medications were administered Disposition: 16:47 Co-signature as Attending Physician, Tushar Kevin MD I agree with the assessment and kdr plan of care. Disposition: 07/07/20 15:25 Discharged to Home. Impression: Puncture wound without foreign body of foot. - Condition is Stable. - Discharge Instructions: Puncture Wound. - Prescriptions for Cipro 500 mg Oral Tablet - take 1 tablet by ORAL route every 12 hours for 7 days; 20 tablet. Bactrim DS 800- 160 mg Oral Tablet - take 1 tablet by ORAL route every 12 hours for 10 days; 20 tablet. - Medication Reconciliation Form, Thank You Letter, Antibiotic Education, Prescription Opioid Use form. - Follow up: Salazar Robles MD; When: 2 - 3 days; Reason: Recheck today's complaints, Continuance of care, Re-evaluation by your physician. Signatures: Dispatcher [employer] EDMS Rittger, TusharMD MD kristi Joel, PA PA jmm Smirch, Shelby, SUBHASH RN ss Virgen Shane RN RN ca1 Corrections: (The following items were deleted from the chart) 15:34 15:25 07/07/2020 15:25 Discharged to Home. Impression: Puncture wound without foreign ss body of foot. Condition is Stable. Forms are Medication Reconciliation Form, Thank You Letter, Antibiotic Education, Prescription Opioid Use. Follow up: Salazar Robles; When: 2 - 3 days; Reason: Recheck today's complaints, Continuance of care, Re-evaluation by your physician. omari
--- NOTE | 2020-07-07 15:25 | ER ---
Nurse's Notes [facility] Name: Maik Stock Age: 44 yrs Sex: Male : 1975 Arrival Date: 07/07/2020 Time: 10:34 Bed 28 Private MD: Salazar Robles E Diagnosis: Puncture wound without foreign body of foot Presentation: 07/07 11:23 Chief complaint: Patient states: yesterday, at 1800. Stepped on a small nail like 1 ca1 inch length, was wearing shoes so I think it was just a quarter of an inch that got to my L foot, the nail was stuck in the shoe. Puncture wound on the L foot. Bleeding controlled. Wound dress from home. Coronavirus screen: Client denies travel out of the [place] in the last 14 days. At this time, the client does not indicate any symptoms associated with coronavirus-19. Ebola Screen: Patient negative for fever greater than or equal to 101.5 degrees Fahrenheit, and additional compatible Ebola Virus Disease symptoms Patient denies exposure to infectious person. Patient denies travel to an Ebola-affected area in the 21 days before illness onset. No symptoms or risks identified at this time. Initial Sepsis Screen: Does the patient meet any 2 criteria? No. Patient's initial sepsis screen is negative. Does the patient have a suspected source of infection? No. Patient's initial sepsis screen is negative. Risk Assessment: Do you want to hurt yourself or someone else? Patient reports no desire to harm self or others. Onset of symptoms was July 06, 2020. 11:23 Method Of Arrival: Ambulatory ca1 11:23 Acuity: JACQUE 4 ca1 Historical: - Allergies: 11:29 No Known Allergies; ca1 - Home Meds: 11:29 Metformin Oral [Active]; Tresiba FlexTouch U-100 subcutaneous [Active]; ca1 - PMHx: 11:29 Diabetes - NIDDM; ca1 - PSHx: 11:29 Appendectomy; Knee surgery; ca1 - Immunization history:: Last tetanus immunization: unknown, Flu vaccine is not up to date. - Social history:: Smoking status: Patient denies any tobacco usage or history of. Screenin:40 Abuse screen: Denies threats or abuse. Denies injuries from another. Nutritional ss screening: No deficits noted. Tuberculosis screening: Never had TB. Fall Risk None identified. Assessment: 14:40 General: Appears in no apparent distress. comfortable, Behavior is calm, cooperative. ss Pain: Complains of pain in ball of left foot Pain currently is 7 out of 10 on a pain scale. Quality of pain is described as tender, throbbing. Neuro: Level of Consciousness is awake, alert, obeys commands, Oriented to person, place, time, situation, [employer] Operator are equal bilaterally Speech is normal. Cardiovascular: Pulses are palpable in right radial artery, right posterior tibial artery, left radial artery and left posterior tibial artery. Respiratory: Airway is patent Respiratory effort is even, unlabored, Respiratory pattern is regular, symmetrical. GI: Patient currently denies abdominal pain, nausea. EENT: Nares are clear Oral mucosa is moist. Derm: Skin is intact, is fragile, Skin is pink, warm \T\ dry. normal. Musculoskeletal: Circulation, motion, and sensation intact. Range of motion: intact in all extremities, Swelling absent. Injury Description: Puncture sustained to ball of left foot is mild swelling noted to bottom of L foot at area of wound. 15:32 Reassessment: Patient appears in no apparent distress at this time. Patient and/or ss family updated on plan of care and expected duration. Pain level reassessed. Patient is alert, oriented x 3, equal unlabored respirations, skin warm/dry/pink. Vital Signs: 11:23 BP 125 / 86; Pulse 90; Resp 16 S; Temp 97.7(TE); Pulse Ox 99% ; Weight 95.25 kg (R); ca1 Height 5 ft. 10 in. (177.80 cm) (R); Pain 7/10; 11:23 Body Mass Index 30.13 (95.25 kg, 177.80 cm) ca1 ED Course: 10:34 Patient arrived in ED. ag5 10:35 Salazar Robles MD is Private Physician. ag5 11:28 Triage completed. ca1 11:29 Arm band placed on right wrist. ca1 13:58 Kiet Martin PA is PHCP. jmm 13:58 Tushar Kevin MD is Attending Physician. jmm 14:40 Ree Beltran RN is Primary Nurse. ss 14:40 Patient has correct armband on for positive identification. Bed in low position. Call ss light in reach. 15:01 Foot Left 3 View XRAY In Process Unspecified. EDMS 15:25 Salazar Robles MD is Referral Physician[facility] 15:32 No provider procedures requiring assistance completed. Patient did not have IV access ss during this emergency room visit. Administered Medications: No medications were administered Outcome: 15:25 Discharge ordered by . omari 15:32 Discharged to home ambulatory. ss 15:32 Condition: good 15:32 Discharge instructions given to patient, Instructed on discharge instructions, follow up and referral plans. medication usage, Demonstrated understanding of instructions, follow-up care, medications, Prescriptions given X 2. 15:34 Patient left the ED. ss Signatures: Dispatcher [employer] EDMS Kiet Martin PA PA jmm Smirch, Shelby, RN RN Virgen Shane RN RN ca1 Jami James ag5 Corrections: (The following items were deleted from the chart) 11:30 11:23 Chief complaint: Patient states: yesterday, at 1800. Stepped on a small nail like ca1 1 inch length, was wearing shoes so I think it was just a quarter of an inch that got to my L foot. Puncture wound on the L foot. Bleeding controlled. Wound dress from home ca1
[2020-07-07 15:38] VITALS: BP 125/86; TEMP 97.7; O2SAT 99
== END 2020-07-07 15:34 | disposition home or self-care (01) ==
LOC: ER 10:34
DX: S91.332A Puncture wound without foreign body, left foot, initial encounter (principal); E11.9 Type 2 diabetes mellitus without complications; W45.0XXA Nail entering through skin, initial encounter; Z79.84 Long term (current) use of oral hypoglycemic drugs
CPT/HCPCS: 99283

== ENCOUNTER 2021-10-23 08:34 | Observation (INO) | payer OTHER ==
--- OUTSIDE RECORDS SUMMARY | 2021-10-23 08:43 | XMS REPORT | Continuity of Care Document ---
:1975 Author Organization [facility] t Address [address] [place] [address] Care Team Providers Name Role Phone Salazar Robles Primary Care Physician Nurse, Pob Immunization Attending Clinician Unavailable Glynn Pelaez DO Attending Clinician GLYNN PELAEZ Attending Clinician Unavailable Lidia HERNANDEZ Attending Clinician Unavailable [facility] Attending Clinician Unavailable Lidia Hernandez MD Attending Clinician Adolfo BURNS Attending Clinician Unavailable ALIA, Melecio Attending Clinician Unavailable Alia VALENZUELA, A Attending Clinician Doctor Unassigned, Name Attending Clinician Unavailable Farhat CULLEN Attending Clinician Unavailable Mihir TYLER, S Attending Clinician Deanna Gilbert MD Attending Clinician Fara MELARA Attending Clinician Melecio Russ MD Attending Clinician Deanna Gilbert MD Admitting Clinician Payers Payer Name Policy Type Policy Number Effective Date Expiration Date Lacho rubio MEDICARE PART A [id number] 2017 \\T\\ B 00:00:00 Problems Condition Condition Condition Status Onset Resolution Last Treating Co mments Source Name Details Category Date Date Treatment Clinician Date Obesity Obesity Disease Active 2020- Univers (BMI (BMI 2-04 ity of 30-39.9) 30-39.9) 00:00: [place] 00 Medical Branch Cellulitis Cellulitis Disease Active U nivers and and 2-04 ity of abscess [place] foot 00 [place] Cellulitis Cellulitis Disease Active Overview : Univers of left of left 2-04 Formattin ity o f foot foot 00:00: g of this 00 note Medical might be Branch different from the original. Added automatic ally from request for surgery [id number] Puncture Puncture Disease Active Overview: [facility] [place] wound of wound of -04 Formattin ity of left foot, left foot, 00:00: g of this [place] initial initial 00 note Medical encounter encounter might be Br anch different from the original. Added automatic ally from request for surgery [id number] Left foot Left foot Disease Active Overview: Univers infection infection 07-14 Formattin i ty of 00:00: g of this [place] 00 note Medical might be Branch different from the original. Added automatic ally from request for surgery [id number] Diabetes Diabetes Disease Active Unive rs 1-13 ity of 00:00: [place] 00 Medical Branch Type 2 Type 2 Disease Active Univers diabetes diabetes 1-04 ity of mellitus mellitus 00:00: [place] with with 00 Medical microalbum microalbum Br anch inuria, inuria, with with long-term long-term current current use of use of insulin insulin Dyslipidem Dyslipidem Disease Active U nivers ia ia 1-04 ity of 00:00: [place] [facility] Albuminuri Albuminuri Disease Active U nivers a a 1-04 ity of 00:00: [place] 00 Medical Branch Metabolic Metabolic Disease Active Uni vers syndrome X syndrome X 1-04 it y of 00:00: [place] 00 Medical Branch Tibia Tibia Disease Active 2015-06 [facility] fracture fracture 0-12 ity of 00:00: [place] [facility] Tibia/fibu Tibia/fibu Disease Active 2015-06 U nivers la la 0-10 ity of fracture, fracture, 00:[place] left[place] left, 00 Medical closed, closed, Branch initial initial encounter encounter Toe ulcer, Toe ulcer, Disease Active U nivers right right 3-11 ity of 00:00: [place] [facility] DM2 DM2 Disease Active Univers (diabetes (diabetes 3-11 ity of mellitus, mellitus, 00:[place] type 2) type 2) 00 Medical Branch Diabetic Diabetic Disease Active Unive rs foot ulcer foot ulcer 3-11 it y of 00:00: [place] 00 Medical Branch Allergies, Adverse Reactions, Alerts Allergy Allergy Status Severity Reaction(s) Onset Inactive Treating Comm ents Source Name Type Date Date Clinician NO KNOWN Drug Active Univers ALLERGIE Class ity of [facility] Social History Social Habit Start Date Stop Date Quantity Comments Source Exposure to Not sure [facility] SARS-CoV-2 (event) Medica l Branch Alcohol intake 2020-10-19 2020-10-19 0 /d [facility] 00:00:00 00:00:00 Medical [place] Tobacco use and 2014-08-18 2014-08-18 Never used [facility] exposure 00:00:00 00:00:00 [facility] Sex Ass[birth year] At [birth year] [facility] 00:00:00 00:00:00 Medical Branch Smoking Status Start Date Stop Date Source Never smoker [facility] Medications Ordered Filled Start Stop Current Ordering Indication Dosage Frequency Signature Comments Components Source Medication Medication Date Date Medication? Clinician (SIG) Name Name clotrimazol Yes [id number] Apply to Univers e 5-12 area(s) at ity of (ATHLETE'S 00:00: bedtime. [place] FOOT, 00 Medical CLOTRIMAZOL Branch E,) 1 % topical cream minocycline Yes [id number] 100mg Take 1 Univers 100 mg 5-12 capsule by ity of capsule 00:00: mouth [place] 00 every 12 Medical (twelve) Branch hours. clotrimazol Yes [id number] Apply to Univers e 5-12 area(s) at ity of (ATHLETE'S 00:00: bedtime. [place] FOOT, 00 Medical CLOTRIMAZOL Branch E,) 1 % topical cream minocycline Yes [id number] 100mg Take 1 Univers 100 mg 5-12 capsule by ity of capsule 00:00: mouth [place] 00 every 12 Medical (twelve) Branch hours. clotrimazol Yes [id number] Apply to Univers e 5-12 area(s) at ity of (ATHLETE'S 00:00: bedtime. [place] FOOT, 00 Medical CLOTRIMAZOL Branch E,) 1 % topical cream minocycline 2020-0 Yes [id number] 100mg Take 1 Univers 100 mg 5-12 capsule by ity of capsule 00:00: mouth [place] 00 every 12 Medical (twelve) Branch hours. clotrimazol 2020-0 Yes [id number] Apply to Univers e 5-12 area(s) at ity of (ATHLETE'S 00:00: bedtime. [place] FOOT, 00 Medical CLOTRIMAZOL Branch E,) 1 % topical cream minocycline 2020-0 Yes [id number] 100mg Take 1 Univers 100 mg 5-12 capsule by ity of capsule 00:00: mouth [place] 00 every 12 Medical (twelve) Branch hours. minocycline 2020-0 Yes [id number] 100mg Take 1 Univers 100 mg 3-24 capsule by ity of capsule 00:00: mouth [place] 00 every 12 Medical (twelve) Branch hours. minocycline 2020-0 Yes [id number] 100mg Take 1 Univers 100 mg 3-24 capsule by ity of capsule 00:00: mouth [place] 00 every 12 Medical (twelve) Branch hours. minocycline 2020-0 Yes [id number] 100mg Take 1 Univers 100 mg 3-24 capsule by ity of capsule 00:00: mouth [place] 00 every 12 Medical (twelve) Branch hours. minocycline 2020-0 Yes [id number] 100mg Take 1 Univers 100 mg 3-24 capsule by ity of capsule 00:00: mouth [place] 00 every 12 Medical (twelve) Branch hours. terbinafine 2020-0 202- No [id number] 250mg Take 1 Univers HCL 250 mg 3-24 06-23 tablet by ity of tablet 00:00: 04:59 mouth [place] 00 :00 daily for Medical 90 days. Branch terbinafine 202-0 2021- No [id number] 250mg Take 1 Univers HCL 250 mg 3-24 06-23 tablet by ity of tablet 00:00: 04:59 mouth [place] 00 :00 daily for Medical 90 days. Branch terbinafine 202-0 202- No [id number] 250mg Take 1 Univers HCL 250 mg 3-24 06-23 tablet by ity of tablet 00:00: 04:59 mouth [place] 00 :00 daily for Medical 90 days. Branch terbinafine 2020-0 1- No [id number] 250mg Take 1 Univers HCL 250 mg 3-24 -23 tablet by ity of tablet 00:00: 04:59 mouth [place] 00 :00 daily for Medical 90 days. Branch minocycline 2020-0 1- No [id number] 100mg Take 1 Univers 100 mg 3-24 05-12 capsule by ity of capsule 00:00: 00:00 mouth [place] 00 :00 every 12 Medical (twelve) Branch hours. minocycline 2020-0 2021- No [id number] 100mg Take 1 Univers 100 mg 3-24 05-12 capsule by ity of capsule 00:00: 00:00 mouth [place] 00 :00 every 12 Medical (twelve) Branch hours. minocycline 2020-0 Yes [id number] 100mg Take 1 Univers 100 mg 3-03 capsule by ity of capsule 00:00: mouth [place] 00 every 12 Medical (twelve) Branch hours. rifAMPin 2020-0 Yes [id number] 300mg Take 1 U nivers 300 mg 3-03 capsule by ity of capsule 00:00: mouth [place] 00 every 12 Medical (twelve) Branch hours. minocycline 2020-0 Yes [id number] 100mg Take 1 Univers 100 mg 3-03 capsule by ity of capsule 00:00: mouth [place] 00 every 12 Medical (twelve) Branch hours. rifAMPin 2020-0 Yes [id number] 300mg Take 1 U nivers 300 mg 3-03 capsule by ity of capsule 00:00: mouth [place] 00 every 12 Medical (twelve) Branch hours. minocycline 1-0 Yes [id number] 100mg Take 1 Univers 100 mg 3-03 capsule by ity of capsule 00:00: mouth [place] 00 every 12 Medical (twelve) Branch hours. rifAMPin 2021-0 Yes [id number] 300mg Take 1 U nivers 300 mg 3-03 capsule by ity of capsule 00:00: mouth [place] 00 every 12 Medical (twelve) Branch hours. minocycline 2021-0 Yes [id number] 100mg Take 1 Univers 100 mg 3-03 capsule by ity of capsule 00:00: mouth [place] 00 every 12 Medical (twelve) Branch hours. rifAMPin 2021-0 Yes [id number] 300mg Take 1 U nivers 300 mg 3-03 capsule by ity of capsule 00:00: mouth [place] 00 every 12 Medical (twelve) Branch hours. rifAMPin 2020-0 Yes [id number] 300mg Take 1 U nivers 300 mg 3-03 capsule by ity of capsule 00:00: mouth [place] 00 every 12 Medical (twelve) Branch hours. rifAMPin 2020-0 2021- No [id number] 300mg Take 1 Univers 300 mg 3-03 03-24 capsule by ity of capsule 00:00: 00:00 mouth [place] 00 :00 every 12 Medical (twelve) Branch hours. minocycline 2020-0 2021- No [id number] 100mg Take 1 Univers 100 mg 3-03 03-24 capsule by ity of capsule 00:00: 00:00 mouth [place] 00 :00 every 12 Medical (twelve) Branch hours. rifAMPin 2020-0 2021- No [id number] 300mg Take 1 Univers 300 mg 3-03 03-24 capsule by ity of capsule 00:00: 00:00 mouth [place] 00 :00 every 12 Medical (twelve) Branch hours. minocycline 2020-0 2021- No [id number] 100mg Take 1 Univers 100 mg 3-03 03-24 capsule by ity of capsule 00:00: 00:00 mouth [place] 00 :00 every 12 Medical (twelve) Branch hours. rifAMPin 2020-0 2021- No [id number] 300mg Take 1 Univers 300 mg 3-03 03-24 capsule by ity of capsule 00:00: 00:00 mouth [place] 00 :00 every 12 Medical (twelve) Branch hours. sodium 0 Yes [id number] Apply to U nivers hypochlorit 2-26 area(s) ity o f e (DAKIN'S 00:00: every [place] MODIFIED 00 Saturday, Medical 0.25%) Wedneday Branch solution and Saturday in the evening. sodium 2020-0 Yes [id number] Apply to U nivers hypochlorit 2-26 area(s) ity o f e (DAKIN'S 00:00: every [place] MODIFIED 00 Saturday, Medical 0.25%) [place] Branch solution and Saturday in the evening. sodium 2020-0 Yes [id number] Apply to U nivers hypochlorit 2-26 area(s) ity o f e (DAKIN'S 00:00: every [place] MODIFIED Saturday, Medical 0.25%) [place] Branch solution and Saturday in the evening. sodium 202-0 Yes [id number] Apply to U nivers hypochlorit 2-26 area(s) ity o f e (DAKIN'S 00:00: every [place] MODIFIED Saturday, Medical 0.25%) [place] Branch solution and Saturday in the evening. sodium 2020-0 Yes [id number] Apply to U nivers hypochlorit 2-26 area(s) ity o f e (DAKIN'S 00:00: every [place] MODIFIED Saturday, Medical 0.25%) [place] Branch solution and Saturday in the evening. sodium 2020-0 Yes [id number] Apply to U nivers hypochlorit 2-26 area(s) ity o f e (DAKIN'S 00:00: every [place] MODIFIED Saturday, Medical 0.25%) [place] Branch solution and Saturday in the evening. sodium 0 Yes [id number] Apply to U nivers hypochlorit 2-26 area(s) ity o f e (DAKIN'S 00:00: every [place] MODIFIED Saturday, Medical 0.25%) [place] Branch solution and Saturday in the evening. sodium 2020-0 Yes [id number] Apply to U nivers hypochlorit 2-26 area(s) ity o f e (DAKIN'S 00:00: every [place] MODIFIED Saturday, Medical 0.25%) [place] Branch solution and Saturday in the evening. sodium 2020-0 Yes [id number] Apply to U nivers hypochlorit 2-26 area(s) ity o f e (DAKIN'S 00:00: every [place] MODIFIED Saturday, Medical 0.25%) [place] Branch solution and Saturday in the evening. sodium 202-0 Yes [id number] Apply to U nivers hypochlorit 2-26 area(s) ity o f e (DAKIN'S 00:00: every [place] MODIFIED Saturday, Medical 0.25%) [place] Branch solution and Saturday in the evening. sodium 202-0 Yes [id number] Apply to U nivers hypochlorit 2-26 area(s) ity o f e (DAKIN'S 00:00: every [place] MODIFIED Saturday, Medical 0.25%) [place] Branch solution and Saturday in the evening. sodium Yes [id number] Apply to U nivers hypochlorit 2-26 area(s) ity o f e (DAKIN'S 00:00: every [place] MODIFIED Saturday, Medical 0.25%) [place] Branch solution and Saturday in the evening. sodium Yes [id number] Apply to U nivers hypochlorit 2-26 area(s) ity o f e (DAKIN'S 00:00: every [place] MODIFIED Saturday, Medical 0.25%) [place] Branch solution and Saturday in the evening. sodium Yes [id number] Apply to U nivers hypochlorit 2-26 area(s) ity o f e (DAKIN'S 00:00: every [place] MODIFIED Saturday, Medical 0.25%) [place] Branch solution and Saturday in the evening. sodium Yes [id number] Apply to U nivers hypochlorit 2-26 area(s) ity o f e (DAKIN'S 00:00: every [place] MODIFIED Saturday, Medical 0.25%) [place] Branch solution and Saturday in the evening. sodium Yes [id number] Apply to U nivers hypochlorit 2-26 area(s) ity o f e (DAKIN'S 00:00: every [place] MODIFIED Saturday, Medical 0.25%) [place] Branch solution and Saturday in the evening. sodium Yes [id number] Apply to U nivers hypochlorit 2-26 area(s) ity o f e (DAKIN'S 00:00: every [place] MODIFIED Saturday, Medical 0.25%) [place] Branch solution and Saturday in the evening. sulfamethox 2020- No 1{tbl} Take 1 U nivers azole-trime 2-25 02-25 tablet by it 22:25: 00:00 mouth 2 [place] (BACTRIM) 53 :00 (two) Medical 400-80 mg times Branch per tablet daily. ciprofloxac 202- No 500mg Take 500 Univers in HCl 2-25 02-25 mg by ity of (CIPRO) 500 22:25: 00:00 [place] mg tablet 53 :00 every 12 Medica l (twelve) Branch hours. rifAMPin Yes 300mg 300 mg, Unive rs (RIFADIN) 2-25 Oral, ity of capsule 300 15:00: DAILY, [place] mg 00 First dose Medical on [facility] 08/04/20 at 0900, Until Discontinu ed, NORBERTO
Re ason for Anti-Infec tive: Documented Infection< br>Documen rony Infection Site: Skin / Soft Tissue
Duration of Therapy: 7 days minocycline Yes 100mg 100 mg, [facility] [place] (MINOCIN) 2-25 Oral, ity of capsule 100 12:00: Q12HA2, [place] mg 00 First dose Medical on [facility] 08/04/20 at 0600, Until Discontinu ed, NORBERTO
Re ason for Anti-Infec tive: Documented Infection< br>Documen rony Infection Site: Skin / Soft Tissue<br& gt;Duratio n of Therapy: 7 days Polyethylen Yes [id number] 17g Take 1 Univers e Glycol 2-25 Packet by ity of 3350 17 00:00: mouth [place] gram powder 00 daily. Medica l Branch insulin Yes [id number] 30U inject 30 U nivers glargine 2-25 Units ity of 100 unit/mL 00:00: under the [place] injection 00 skin Medical daily. Branch Polyethylen Yes [id number] 17g Take 1 Univers e Glycol 2-25 Packet by ity of 3350 17 00:00: mouth [place] gram powder 00 daily. Medica l Branch insulin Yes [id number] 30U inject 30 U nivers glargine 2-25 Units ity of 100 unit/mL 00:00: under the [place] injection 00 skin Medical daily. Branch minocycline Yes [id number] 100mg Take 1 Univers 100 mg 2-25 capsule by ity of capsule 00:00: mouth [place] 00 every 12 Medical (twelve) Branch hours. rifAMPin 2020-0 Yes [id number] 300mg Take 1 U nivers 300 mg 2-25 capsule by ity of capsule 00:00: mouth [place] 00 every 12 Medical (twelve) Branch hours. Polyethylen 1-0 Yes [id number] 17g Take 1 Univers e Glycol 2-25 Packet by ity of 3350 17 00:00: mouth [place] gram powder 00 daily. Medica l Branch insulin 2020-0 Yes [id number] 30U inject 30 U nivers glargine 2-25 Units ity of 100 unit/mL 00:00: under the [place] injection 00 skin Medical daily. Branch minocycline 2020-0 Yes [id number] 100mg Take 1 Univers 100 mg 2-25 capsule by ity of capsule 00:00: mouth [place] 00 every 12 Medical (twelve) Branch hours. rifAMPin 2020-0 Yes [id number] 300mg Take 1 U nivers 300 mg 2-25 capsule by ity of capsule 00:00: mouth [place] 00 every 12 Medical (twelve) Branch hours. Polyethylen 2020-0 Yes [id number] 17g Take 1 Univers e Glycol 2-25 Packet by ity of 3350 17 00:00: mouth [place] gram powder 00 daily. Medica l Branch insulin 2020-0 Yes [id number] 30U inject 30 U nivers glargine 2-25 Units ity of 100 unit/mL 00:00: under the [place] injection 00 skin Medical daily. Branch minocycline 2020-0 Yes [id number] 100mg Take 1 Univers 100 mg 2-25 capsule by ity of capsule 00:00: mouth [place] 00 every 12 Medical (twelve) Branch hours. rifAMPin 2020-0 Yes [id number] 300mg Take 1 U nivers 300 mg 2-25 capsule by ity of capsule 00:00: mouth [place] 00 every 12 Medical (twelve) Branch hours. Polyethylen 2021-0 Yes [id number] 17g Take 1 Univers e Glycol 2-25 Packet by ity of 3350 17 00:00: mouth [place] gram powder 00 daily. Medica l Branch insulin 2020-0 Yes [id number] 30U inject 30 U nivers glargine 2-25 Units ity of 100 unit/mL 00:00: under the [place] injection 00 skin Medical daily. Branch Polyethylen 2020-0 Yes [id number] 17g Take 1 Univers e Glycol 2-25 Packet by ity of 3350 17 00:00: mouth [place] gram powder 00 daily. Medica l Branch insulin 2020-0 Yes [id number] 30U inject 30 U nivers glargine 2-25 Units ity of 100 unit/mL 00:00: under the [place] injection 00 skin Medical daily. Branch Polyethylen 2020-0 Yes [id number] 17g Take 1 Univers e Glycol 2-25 Packet by ity of 3350 17 00:00: mouth [place] gram powder 00 daily. Medica l Branch insulin 2020-0 Yes [id number] 30U inject 30 U nivers glargine 2-25 Units ity of 100 unit/mL 00:00: under the [place] injection 00 skin Medical daily. Branch Polyethylen 2020-0 Yes [id number] 17g Take 1 Univers e Glycol 2-25 Packet by ity of 3350 17 00:00: mouth [place] gram powder 00 daily. Medica l Branch insulin 2020-0 Yes [id number] 30U inject 30 U nivers glargine 2-25 Units ity of 100 unit/mL 00:00: under the [place] injection 00 skin Medical daily. Branch Polyethylen 2020-0 Yes [id number] 17g Take 1 Univers e Glycol 2-25 Packet by ity of 3350 17 00:00: mouth [place] gram powder 00 daily. Medica l Branch insulin 2020-0 Yes [id number] 30U inject 30 U nivers glargine 2-25 Units ity of 100 unit/mL 00:00: under the [place] injection 00 skin Medical daily. Branch Polyethylen 2020-0 Yes [id number] 17g Take 1 Univers e Glycol 2-25 Packet by ity of 3350 17 00:00: mouth [place] gram powder 00 daily. Medica l Branch insulin 2020-0 Yes [id number] 30U inject 30 U nivers glargine 2-25 Units ity of 100 unit/mL 00:00: under the [place] injection 00 skin Medical daily. Branch Polyethylen 2020-0 Yes [id number] 17g Take 1 Univers e Glycol 2-25 Packet by ity of 3350 17 00:00: mouth [place] gram powder 00 daily. Medica l Branch insulin 2020-0 Yes [id number] 30U inject 30 U nivers glargine 2-25 Units ity of 100 unit/mL 00:00: under the [place] injection 00 skin Medical daily. Branch Polyethylen 2020-0 Yes [id number] 17g Take 1 Univers e Glycol 2-25 Packet by ity of 3350 17 00:00: mouth [place] gram powder 00 daily. Medica l Branch insulin 2020-0 Yes [id number] 30U inject 30 U nivers glargine 2-25 Units ity of 100 unit/mL 00:00: under the [place] injection 00 skin Medical daily. Branch Polyethylen 2020-0 Yes [id number] 17g Take 1 Univers e Glycol 2-25 Packet by ity of 3350 17 00:00: mouth [place] gram powder 00 daily. Medica l Branch insulin 2020-0 Yes [id number] 30U inject 30 U nivers glargine 2-25 Units ity of 100 unit/mL 00:00: under the [place] injection 00 skin Medical daily. Branch Polyethylen 2020-0 Yes [id number] 17g Take 1 Univers e Glycol 2-25 Packet by ity of 3350 17 00:00: mouth [place] gram powder 00 daily. Medica l Branch insulin 2020-0 Yes [id number] 30U inject 30 U nivers glargine 2-25 Units ity of 100 unit/mL 00:00: under the [place] injection 00 skin Medical daily. Branch Polyethylen 2020-0 Yes [id number] 17g Take 1 Univers e Glycol 2-25 Packet by ity of 3350 17 00:00: mouth [place] gram powder 00 daily. Medica l Branch insulin 2020-0 Yes [id number] 30U inject 30 U nivers glargine 2-25 Units ity of 100 unit/mL 00:00: under the [place] injection 00 skin Medical daily. Branch Polyethylen 2020-0 Yes [id number] 17g Take 1 Univers e Glycol 2-25 Packet by ity of 3350 17 00:00: mouth [place] gram powder 00 daily. Medica l Branch insulin 2020-0 Yes [id number] 30U inject 30 U nivers glargine 2-25 Units ity of 100 unit/mL 00:00: under the [place] injection 00 skin Medical daily. Branch Polyethylen 2020-0 Yes [id number] 17g Take 1 Univers e Glycol 2-25 Packet by ity of 3350 17 00:00: mouth [place] gram powder 00 daily. Medica l Branch insulin 2020-0 Yes [id number] 30U inject 30 U nivers glargine 2-25 Units ity of 100 unit/mL 00:00: under the [place] injection 00 skin Medical daily. Branch minocycline 2020-1- No [id number] 100mg Take 1 Univers 100 mg 2-25 03-03 capsule by ity of capsule 00:00: 00:00 mouth [place] 00 :00 every 12 Medical (twelve) Branch hours. rifAMPin 2020-1- No [id number] 300mg Take 1 Univers 300 mg 2-25 03-03 capsule by ity of capsule 00:00: 00:00 mouth [place] 00 :00 every 12 Medical (twelve) Branch hours. minocycline 2020-1- No [id number] 100mg Take 1 Univers 100 mg 2-25 03-03 capsule by ity of capsule 00:00: 00:00 mouth [place] 00 :00 every 12 Medical (twelve) Branch hours. rifAMPin 2020-1- No [id number] 300mg Take 1 Univers 300 mg 2-25 03-03 capsule by ity of capsule 00:00: 00:00 mouth [place] 00 :00 every 12 Medical (twelve) Branch hours. minocycline 2020-1- No [id number] 100mg Take 1 Univers 100 mg 2-25 03-03 capsule by ity of capsule 00:00: 00:00 mouth [place] 00 :00 every 12 Medical (twelve) Branch hours. rifAMPin 2020-1- No [id number] 300mg Take 1 Univers 300 mg 2-25 03-03 capsule by ity of capsule 00:00: 00:00 mouth [place] 00 :00 every 12 Medical (twelve) Branch hours. minocycline 2020-0 1- No [id number] 100mg Take 1 Univers 100 mg 2-25 03-03 capsule by ity of capsule 00:00: 00:00 mouth [place] 00 :00 every 12 Medical (twelve) Branch hours. rifAMPin 2020-0 1- No [id number] 300mg Take 1 Univers 300 mg 2-25 03-03 capsule by ity of capsule 00:00: 00:00 mouth [place] 00 :00 every 12 Medical (twelve) Branch hours. minocycline 2020- No [id number] 100mg Take 1 Univers 100 mg -04 08- capsule by ity of capsule 00:00: 00:00 mouth [place] 00 :00 every 12 Medical (twelve) Branch hours. rifAMPin 2020- No [id number] 300mg Take 1 Univers 300 mg -04 08- capsule by ity of capsule 00:00: 00:00 mouth [place] 00 :00 every 12 Medical (twelve) Branch hours. lactated 2020- No 1000mL at 75 Unive rs ringers IV 08-02- mL/hr, ity of infusion 19:45: 12:31 1,000 mL, [place] as 1,000 mL 00 :04 IV Medical Infusion, Branch CONTINUOUS , Starting 08/02/20 at 1345, Until 08/03/20 at 0631, Routine, PACU vancomycin 2020- No 1250mg 1,250 mg, Univers 1250 mg in 07-30 IV ity of NS 250 mL 18:00: 14:10 Piggyback, [place] RTU IV 00 :51 Q24H ABX, Medical Piggyback First dose Bran ch 1,250 mg on 07/30/20 at 1200, Until Discontinu ed
Reas on for Anti-Infec tive: Documented Infection< br>Documen rony Infection Site: Skin / Soft Tissue< br>Duratio n of Therapy: 7 days rifAMPin 2020- No 300mg 300 mg, Univ ers (RIFADIN) 07-30 Oral, ity of capsule 300 14:00: 16:48 Q12H, [place] mg 00 :39 First dose Medical on Sat Branch 07/30/20 at 0800, Until Discontinu ed, NORBERTO
Re ason for Anti-Infec tive: Documented Infection< br>Documen rony Infection Site: Skin / Soft Tissue
Duration of Therapy: 14 days minocycline 2020- No 100mg 100 mg, U nivers (MINOCIN) 07-30 Oral, ity of capsule 100 14:00: 16:48 Q12H, [place] mg 00 :39 First dose Medical on Sat Branch 07/30/20 at 0800, Until Discontinu ed, NORBERTO
Re ason for Anti-Infec tive: Documented Infection< br>Documen rony Infection Site: Skin / Soft Tissue
Duration of Therapy: 14 days ceFEPIme 2020- No 2000mg 2,000 mg, U nivers (MAXIPIME) 07-30 IV ity of 2,000 mg in 04:15: 07:41 Piggyback, [place] NaCl 0.9% 00 :00 Q8H ABX, 1 Medi ventura (NS) 100 mL dose, Branch MINI-BAG First dose (after last modificati on) on Sat07/29/20 at 2215, 100 mL
Reas on for Anti-Infec tive: Documented Infection< br>Documen rony Infection Site: Bone
Du ration of Therapy: Other (see Comments) gadoteridol 2020- No .2mL/kg 17 mL (0.2 Univers (PROHANCE-2 07-30-20 mL/kg ?85 it y of 0 mL) 03:15: 03:01 kg), [place] injection 00 :00 Intravenou Medi ventura 17 mL s, ONCE, 1 Branch dose, 07/29/20 at 2115, Routine metroNIDAZO 2020- No 500mg 500 mg, IV Univers LE in NaCl 07-30 Piggyback, it y of (iso-os) 00:30: 05:29 Q8H ABX, 1 [place] (FLAGYL 00 :00 dose, Medical I.V.) RTU First dose Bran ch IV infusion (after 500 mg last modificati on) on Sat07/29/20 at 1830, 100 mL
Reas on for Anti-Infec tive: Documented Infection< br>Documen rony Infection Site: Blood
D uration of Therapy: Other (see Comments) vancomycin 2020- No 1250mg 1,250 mg, Univers (VANCOCIN) 07-25 IV ity of 1,250 mg in 14:45: 22:49 Piggyback, [place] NaCl 0.9% 00 :20 Q24H ABX, Medic al (NS) 250 mL First dose Br anch piggyback on 07/25/20 at 0845, Until Discontinu ed, 250 mL
Reas on for Anti-Infec tive: Empiric Therapy for Suspected Infection< br>Empiric Therapy Site: Skin / Soft tissue
Duration of therapy: 72 hours Sliding Yes Subcutaneo [facility] ers Scale 2-14 us, TID ity of Insulin - 14:00: MEALS+HS, [place] as Lispro 00 First dose Medical (HumaLOG) + (after Branch Fsbg last Testing modificati on) on 07/24/20 at 0800, Until Discontinu ed, Routine vancomycin 2020- No 1250mg 1,250 mg, Univers 1250 mg in 07-23 IV ity of NS 250 mL 14:38: 07:05 [place], [place] RTU IV 00 :38 Q24H ABX, Medical Piggyback First dose Bran ch 1,250 mg (after last modificati on) on 07/23/20 at 0845, Until Discontinu ed
Reas on for Anti-Infec tive: Documented Infection< br>Documen rony Infection Site: Skin / Soft Tissue
Duration of Therapy: 7 days KCL 2020- No 20meq 20 mEq, Univers (KLOR-CON 07-22 Oral, ity of M20) tablet 13:45: 14:38 ONCE, 1 [place] 20 mEq 00 :00 dose, Fri Medical 07/22/20 at Branch 0745, Routine lactated 2020- No 1000mL at 999 [facility] ers ringers IV 07-2212 mL/hr, ity of infusion 13:45: 17:04 1,000 mL, [place] as 1,000 mL 00 :00 IV Medical Infusion, [place] ONCE, 1 dose, 07/22/20 at 0745, Routine vancomycin 2020- No 1250mg 1,250 mg, Univers 1250 mg in 07-22 IV ity of NS 250 mL 00:30: 21:06 [place], [place] RTU IV 00 :47 Q12H ABX, Medical Piggyback First dose Bran ch 1,250 mg on [place] 07/21/20 at 1830, Until Discontinu ed
Reas on for Anti-Infec tive: Documented Infection< br>Documen rony Infection Site: Skin / Soft Tissue< br>Duratio n of Therapy: 7 days ceFEPIme No 2000mg 2,000 mg, U nivers (MAXIPIME) 07-21 IV ity of 2,000 mg in 04:05: 22:49 [place], [place] NaCl 0.9% 00 :20 Q8H ABX, Medica l (NS) 100 mL First dose Br anch MINI-BAG (after last modificati on) on Sat07/20/20 at 2215, Until Discontinu ed, 100 mL
Reas on for Anti-Infec tive: Documented Infection< br>Documen rony Infection Site: Bone
Du ration of Therapy: Other (see Comments) metroNIDAZO 2020- No 500mg 500 mg, IV Univers LE in NaCl 07-21 Piggyback, it y of (iso-os) 00:30: 22:49 Q8H ABX[place] (FLAGYL 00 :20 First dose Medica l I.V.) RTU on Sat Branch IV infusion 07/20/20 at 500 mg 1830, Until Discontinu ed, 100 mL
R debra for Anti-Infec tive: Documented Infection< br>Documen rony Infection Site: Blood
D uration of Therapy: Other (see Comments) clindamycin 2020- No 900mg 900 mg, IV Univers in 5 % 07-21 [place]gyback, ity of dextrose 00:30: 23:33 Q8H ABX[place] (CLEOCIN) 00 :56 First dose Medi ventura 900 mg/50 on Sat Branch mL IV 07/20/20 at piggyback 1830, RTU 900 mg Until Discontinu ed, 50 mL
Reas on for Anti-Infec tive: Documented Infection< br>Documen rony Infection Site: Skin / Soft Tissue
Duration of Therapy: Other (see Comments)< br>Restric rony use approved by: GERALDO BERRIOS, ADULT ID vancomycin 2020- No 15mg/kg 1,500 mg Univers (VANCOCIN) 07-21 (rounded ity of 1,500 mg in 00:30: 10:33 from 1,497 [place] NaCl 0.9% 00 :27 mg = 15 Medical (NS) 500 mL mg/kg Branch piggyback ?99.8 kg), IV [place], Q8H ABX, First dose (after last modificati on) on Sat07/20/20 at 1830, Until Discontinu ed, 500 mL
Reas on for Anti-Infec tive: Empiric Therapy for Suspected Infection< br>Empiric Therapy Site: Skin / Soft tissue
Duration of therapy: 7 days ceFEPIme 2020- No 2000mg 2,000 mg, U nivers (MAXIPIME) 07-20 IV ity of 2,000 mg in 17:15: 23:43 [place], [place] NaCl 0.9% 00 :19 Q12H ABX, Medic al (NS) 100 mL First dose Br anch MINI-BAG on Sat07/20/20 at 1115, Until Discontinu ed, 100 mL
Reas on for Anti-Infec tive: Documented Infection< br>Documen rony Infection Site: Bone<br&gt ;Duration of Therapy: Other (see Comments) HYDROcodone 2020- No 1{tbl} 1 tablet, Univers -acetaminop 07-19 Oral, ity of hen (NORCO 18:15: 18:12 ONCE, 1 [place] as 5) 5-325 mg 00 :00 dose, Tue Med ical tablet 1 07/19/20 at [place] tablet 1215, Routine, PACU FENTanyl PF 2020- No 25ug 25 mcg, [place] (SUBLIMAZE 07-19 Slow IV ity o f (PF)) 18:08: 18:58 Push, [place] injection 04 :50 Q5MIN PRN, Medi ventura 25 mcg 4 doses, Branch Starting 07/19/20 at 1208, Until 07/19/20 at 1258, Routine, Pain (scale 4-6), PACU sodium 2020- No Topical, Univer s hypochlorit 07-18-08 DAILY, ity o f e 0.025% 15:00: 12:33 First dose [place] (Dakin's) 00 :01 on Mon Medical solution 07/18/20 at Branch 0900, Until Discontinu ed, Routine acetaminoph Yes 1{tbl} 1 tablet, Univers en-codeine 07-18 Oral, ity of (TYLENOL 12:52: Q6HPRN, [place] #3) 300-30 54 Starting Medic al mg tablet 1 Mon 07/18/20 Br anch tablet at 0652, Until Discontinu ed, Routine, Pain (scale 7-10) acetaminoph Yes 650mg 650 mg, [place] en 07 Oral, ity of (TYLENOL) 11:43: Q6HPRN, [place] tablet 650 24 Starting Medic al mg 07/17/20 Branch at 0543, Until Discontinu ed, Routine, Pain (scale 1-3), Temp > 38.5 C vancomycin 2020- No 15mg/kg 1,500 mg Univers 1500 mg in 07-17 (rounded ity of NS 500 mL 05:28: 18:16 from 1,497 [place] IV 00 :52 mg = 15 Medical [place] mg/kg Branch RTU 1,500 ?99.8 kg), mg IV [place], Q8H ABX, First dose (after last modificati on) on 07/16/20 at 2330, Until Discontinu ed
Reas on for Anti-Infec tive: Empiric Therapy for Suspected Infection< br>Empiric Therapy Site: Skin / Soft tissue
Duration of therapy: 7 days pantoprazol 2020- No 40mg 40 mg, Uni vers e 07-16 Oral, ity of (PROTONIX) 15:15: 14:44 DAILY, [place] EC tablet 00 :18 First dose Medi ventura 40 mg on Sat Branch 07/16/20 at 0915, Until Discontinu ed, Routine vancomycin 2020- No 15mg/kg 1,500 mg Univers 1500 mg in 07-15 (rounded ity of NS 500 mL 18:00: 21:44 from 1,497 [place] IV 00 :42 mg = 15 Medical [place] mg/kg Branch RTU 1,500 ?99.8 kg), mg IV [place], Q12H ABX, First dose (after last modificati on) on Sat07/15/20 at 1200, Until Discontinu ed
Reas on for Anti-Infec tive: Empiric Therapy for Suspected Infection< br>Empiric Therapy Site: Skin / Soft tissue
Duration of therapy: 7 days Polyethylen Yes 17g 17 g, Unive rs e Glycol 2-05 Oral, ity of 3350 15:00: DAILY, [place] (MIRALAX) 00 First dose Medi ventura powder 17 g on Sat Branch 07/15/20 at 0900, Until Discontinu ed, Routine Sliding 2020- No Subcutaneo Uni vers Scale 2 02-14 us, Q4H, ity of Insulin - 06:00: 12:45 First dose [place] Lispro 00 :00 (after Medical (HumaLOG) + last Branch Fsbg modificati Testing on) on Sat07/15/20 at 0000, Until Discontinu ed, Routine diph,pertus 2020- No .5mL 0.5 mL, [place] (acel),teta 2-05 Intramuscu i ty of nus 05:00: 06:58 lar, ONCE, [place] (ADACEL) 00 :00 1 dose, Medical injection [place] 07/14/20 Bran ch 0.5 mL at 2300, Routine clindamycin 2020- No 600mg 600 mg, IV Univers in 5 % 2-05 Piggyback, ity of dextrose 04:00: 18:30 Q8H ABX, [place] (CLEOCIN) 00 :18 First dose Medi ventura 600 mg/50 on [place] Branch mL IV 07/14/20 at piggyback 2200, RTU 600 mg Until Discontinu ed, 50 mL
Reas on for Anti-Infec tive: Empiric Therapy for Suspected Infection< br>Empiric Therapy Site: Skin / Soft tissue
Duration of therapy: 7 days
Re stricted use approved by: Tonie g fasciitis, necrotizin g skin and soft tissue infection, and Janel s gangrene to block toxin production insulin Yes .3U/kg/ 30 Units Uni vers glargine 2-05 d (rounded ity of (LANTUS 03:00: from 29.94 [place] U-100) 00 Units = Medical injection 0.3 Branch 30 Units Units/kg/d ay ?99.8 kg), Subcutaneo us, QHS, First dose on [place] 07/14/20 at 2100, Until Discontinu ed, Routine iohexol 2020- No 120mL 120 mL, Unive rs (OMNIPAQUE 07-15 02-05 Intravenou it y of 350 00:15: 00:12 s, ONCE, 1 [place] BULK-100 00 :00 dose, [place] Medica l mL) 07/14/20 at Branch injection 1815, 120 mL Routine glucagon Yes 1mg 1 mg, Univers (GLUCAGEN 04 Intramuscu ity of DIAGNOSTIC 23:53: lar, PRN, [place] KIT) 28 Starting Medical injection 1 Sat07/14/20 Br anch mg at 1753, Until Discontinu ed, NORBERTO, Blood Glucose < or = 70 mg/dL and patient is unable to swallow or has mental changes. dextrose 50 Yes 25mL 25 mL, Univ ers % in water 204 Slow IV ity of (D50W) 23:53: Push, PRN, [place] injection 28 Starting Medica l 25 mL [place] 07/14/20 Branch at 1753, Until Discontinu ed, NORBERTO, Blood Glucose < or = 70 mg/dL and patient is unable to swallow or has mental status changes. ceFEPIme 2020- No 2000mg 2,000 mg, U nivers (MAXIPIME) 2 02-08 IV ity of 2,000 mg in 23:00: 16:00 [place], [place] NaCl 0.9% 00 :14 Q12H ABX, Medic al (NS) 100 mL First dose Br anch MINI-BAG on [place] 07/14/20 at 1700, Until Discontinu ed, 100 mL
R debra for Anti-Infec tive: Empiric Therapy for Suspected Infection< br>Empiric Therapy Site: Skin / Soft tissue
Duration of therapy: 7 days Sliding 2020- Subcutaneo Uni vers Scale 07-14 us, TID ity of Insulin - 23:00: 04:55 MEALS+HS, [place] Lispro 00 :42 First dose Medical (HumaLOG) + on [place] Branch Fsbg 07/14/20 at Testing 1700, Until Discontinu ed, Routine acetaminoph 2020- No 1{tbl} Take 1 U nivers en-codeine 07-14 tablet by ity of (TYLENOL 21:59: 00:00 mouth [place] #3) 300-30 28 :00 every 4 Medica l mg tablet (four) Branch hours as needed. ondansetron Yes 4mg 4 mg, Slow Univers (ZOFRAN 07-14 IV Push, ity of (PF)) 21:57: Q6HPRN, [place] injection 4 14 Starting Medi ventura mg [facility] 07/14/20 Branch at 1557, Until Discontinu ed, Routine, Nausea and Vomiting (N/V) sennosides Yes 8.6mg 8.6 mg, Uni vers (SENOKOT) 07-14 Oral, ity of tablet 8.6 21:57: QDAILYPRN, [place] mg 07 Starting Medical [facility] 07/14/20 Branch at 1557, Until Discontinu ed, Routine, Constipati on traMADoL No 50mg 50 mg, Univer s (ULTRAM) 07-14 Oral, ity of tablet 50 21:56: 21:55 Q8HPRN, [place] mg 47 :47 Starting Medical [place] 07/14/20 Branch at 1556, Until 07/16/20 at 1555, Routine, Pain (scale 4-6) acetaminoph 2020- No 650mg 650 mg, U nivers en 07-14 Oral, ity of (TYLENOL) 21:56: 11:43 Q6HPRN, [place] tablet 650 43 :42 Starting Medic al mg [facility] 07/14/20 Branch at 1556, Until 07/17/20 at 0543, Routine, Pain (scale 1-3) acetaminoph 2020- No 1000mg 1,000 mg, Univers en 07-14 Oral, ity of (TYLENOL) 19:15: 18:22 ONCE, 1 [place] tablet 00 :00 dose, [place] Medical 1,000 mg 07/14/20 at Branch 1315, NORBERTO vancomycin No 1000mg 1,000 mg, Univers (VANCOCIN) 07-14 IV ity of 1,000 mg in 18:00: 19:09 [place], [place] NaCl 0.9% 00 :00 ONCE, 1 Medical (NS) 250 mL dose, [facility] VIAL-MATE 07/14/20 at IV 1200, 250 piggyback mL
Reas on for Anti-Infec tive: Documented Infection< br>Documen rony Infection Site: Skin / Soft Tissue
Duration of Therapy: 7 days diclofenac No 75mg Take 1 Univ ers 75 mg EC 11-16 tablet by ity o f tablet 00:00: 00:00 mouth 2 [place] 00 :00 (two) Medical times Branch daily with meals. traMADOL 50 No 50mg Take 1 Uni vers mg tablet 07-05 tablet by ity of 00:00: 00:00 mouth [place] 00 :00 every 6 Medical (six) Branch hours as needed for Pain (scale 4-6). cephALEXin No 500mg Take 1 Uni vers (KEFLEX) 07-05 capsule by ity of 500 mg 00:00: 00:00 mouth 4 [place] capsule 00 :00 (four) Medical times Branch daily. acetaminoph 2020- No 1{tbl} Take 1 U nivers en-codeine 07-02 tablet by ity of (TYLENOL-CO 00:00: 00:00 [place] DE[place] #3) 00 :00 every 6 Medical 300-30 mg (six) Branch tablet hours as needed for Pain (scale 4-6). rivaroxaban 2020- No 20mg Take 1 Uni vers (XARELTO) 1-14 02-25 tablet by ity of 20 mg 00:00: 00:00 mouth [place] tablet 00 :00 daily. Medical Branch metFORMIN 2017-0 Yes [id number] 1000mg Take 1 Univers 1,000 mg 1-04 tablet by ity of tablet 00:00: mouth 2 [place] (two) Medical times [place] daily with meals. gabapentin 2017-0 Yes [id number] 100mg Take 1 Univers 100 mg 1-04 capsule by ity of capsule 00:00: mouth at [place] 00 bedtime. Medical Branch blood sugar 2017-0 Yes Use as Univ ers diagnostic 1-04 directed, ity of (ACCU-CHEK 00:00: TID, [place] INNA) 00 DX:E11.9 Medical strip Branch Lancets 2017-0 Yes Use as Univers (ACCU-CHEK 1-04 directed, ity of FASTCLIX) 00:00: TID, [place] Mis 00 DX:E11.9 Medical Branch metFORMIN 2016-0 Yes [id number] 1000mg Take 1 Univers 1,000 mg 1-04 tablet by ity of tablet 00:00: mouth 2 [place] (two) Medical times [place] daily with meals. gabapentin 2017-0 Yes [id number] 100mg Take 1 Univers 100 mg 1-04 capsule by ity of capsule 00:00: mouth at [place] [address] bedtime. Medical Branch blood sugar 2017-0 Yes Use as Univ ers diagnostic 1-04 directed, ity of (ACCU-CHEK 00:00: TID, [place] INNA) 00 DX:E11.9 Medical strip Branch Lancets 2017-0 Yes Use as Univers (ACCU-CHEK 1-04 directed, ity of FASTCLIX) 00:00: TID, [place] Misc 00 DX:E11.9 Medical Branch metFORMIN 2017-0 Yes [id number] 1000mg Take 1 Univers 1,000 mg 1-04 tablet by ity of tablet 00:00: mouth 2 [place] (two) Medical times [place] daily with meals. gabapentin 2017-0 Yes [id number] 100mg Take 1 Univers 100 mg 1-04 capsule by ity of capsule 00:00: mouth at [place] [address] bedtime. Medical Branch blood sugar 2017-0 Yes Use as Univ ers diagnostic 1-04 directed, ity of (ACCU-CHEK 00:00: TID, [place] INNA) 00 DX:E11.9 Medical strip Branch Lancets 2017-0 Yes Use as Univers (ACCU-CHEK 1-04 directed, ity of FASTCLIX) 00:00: TID, [place] Misc 00 DX:E11.9 Medical Branch metFORMIN 2017-0 Yes [id number] 1000mg Take 1 Univers 1,000 mg 1-04 tablet by ity of tablet 00:00: mouth 2 [place] (two) Medical times Branch daily with meals. gabapentin 2017-0 Yes [id number] 100mg Take 1 Univers 100 mg 1-04 capsule by ity of capsule 00:00: mouth at [place] 00 bedtime. Medical Branch blood sugar 2017-0 Yes Use as Univ ers diagnostic 1-04 directed, ity of (ACCU-CHEK 00:00: TID, [place] INNA) 00 DX:E11.9 Medical strip Branch Lancets 2017-0 Yes Use as Univers (ACCU-CHEK 1-04 directed, ity of FASTCLIX) 00:00: TID, [place] Misc 00 DX:E11.9 Medical Branch metFORMIN 2017-0 Yes [id number] 1000mg Take 1 Univers 1,000 mg 1-04 tablet by ity of tablet 00:00: mouth 2 [place] (two) Medical times Branch daily with meals. gabapentin 2017-0 Yes [id number] 100mg Take 1 Univers 100 mg 1-04 capsule by ity of capsule 00:00: mouth at [place] 00 bedtime. Medical Branch blood sugar 2017-0 Yes Use as Univ ers diagnostic 1-04 directed, ity of (ACCU-CHEK 00:00: TID, [place] INNA) 00 DX:E11.9 Medical strip Branch Lancets 2017-0 Yes Use as Univers (ACCU-CHEK 1-04 directed, ity of FASTCLIX) 00:00: TID, [place] Misc 00 DX:E11.9 Medical Branch metFORMIN 2017-0 Yes [id number] 1000mg Take 1 Univers 1,000 mg 1-04 tablet by ity of tablet 00:00: mouth 2 [place] 00 (two) Medical times Branch daily with meals. gabapentin 2017-0 Yes [id number] 100mg Take 1 Univers 100 mg 1-04 capsule by ity of capsule 00:00: mouth at [place] 00 bedtime. Medical Branch blood sugar 2017-0 Yes Use as Univ ers diagnostic 1-04 directed, ity of (ACCU-CHEK 00:00: TID, [place] INNA) 00 DX:E11.9 Medical strip Branch Lancets 2017-0 Yes Use as Univers (ACCU-CHEK 1-04 directed, ity of FASTCLIX) 00:00: TID, [place] Misc 00 DX:E11.9 Medical Branch metFORMIN 2017-0 Yes [id number] 1000mg Take 1 Univers 1,000 mg 1-04 tablet by ity of tablet 00:00: mouth 2 [place] 00 (two) Medical times Branch daily with meals. gabapentin 2017-0 Yes [id number] 100mg Take 1 Univers 100 mg 1-04 capsule by ity of capsule 00:00: mouth at [place] 00 bedtime. Medical Branch blood sugar 2017-0 Yes Use as Univ ers diagnostic 1-04 directed, ity of (ACCU-CHEK 00:00: TID, [place] INNA) 00 DX:E11.9 Medical strip Branch Lancets 2016-0 Yes Use as Univers (ACCU-CHEK 1-04 directed, ity of FASTCLIX) 00:00: TID, [place] Misc 00 DX:E11.9 Medical Branch metFORMIN 2017-0 Yes [id number] 1000mg Take 1 Univers 1,000 mg 1-04 tablet by ity of tablet 00:00: mouth 2 [place] 00 (two) Medical times [place] daily with meals. gabapentin 2017-0 Yes [id number] 100mg Take 1 Univers 100 mg 1-04 capsule by ity of capsule 00:00: mouth at [place] 00 bedtime. Medical Branch blood sugar 2017-0 Yes Use as Univ ers diagnostic 1-04 directed, ity of (ACCU-CHEK 00:00: TID, [place] INNA) 00 DX:E11.9 Medical [facility] Branch Lancets 2017-0 Yes Use as Univers (ACCU-CHEK 1-04 directed, ity of FASTCLIX) 00:00: TID, [place] Misc 00 DX:E11.9 Medical Branch metFORMIN 2017-0 Yes [id number] 1000mg Take 1 Univers 1,000 mg 1-04 tablet by ity of tablet 00:00: mouth 2 [place] 00 (two) Medical times [place] daily with meals. gabapentin 2017-0 Yes [id number] 100mg Take 1 Univers 100 mg 1-04 capsule by ity of capsule 00:00: mouth at [place] 00 bedtime. Medical Branch blood sugar 2017-0 Yes Use as Univ ers diagnostic 1-04 directed, ity of (ACCU-CHEK 00:00: TID, [place] INNA) 00 DX:E11.9 Medical strip Branch Lancets 2017-0 Yes Use as Univers (ACCU-CHEK 1-04 directed, ity of FASTCLIX) 00:00: TID, [place] Misc 00 DX:E11.9 Medical Branch metFORMIN 2017-0 Yes [id number] 1000mg Take 1 Univers 1,000 mg 1-04 tablet by ity of tablet 00:00: mouth 2 [place] (two) Medical times Branch daily with meals. gabapentin 2017-0 Yes [id number] 100mg Take 1 Univers 100 mg 1-04 capsule by ity of capsule 00:00: mouth at [place] 00 bedtime. Medical Branch blood sugar 2017-0 Yes Use as Univ ers diagnostic 1-04 directed, ity of (ACCU-CHEK 00:00: TID, [place] INNA) 00 DX:E11.9 Medical strip Branch Lancets 2017-0 Yes Use as Univers (ACCU-CHEK 1-04 directed, ity of FASTCLIX) 00:00: TID, [place] Mis 00 DX:E11.9 Medical Branch metFORMIN 2017-0 Yes [id number] 1000mg Take 1 Univers 1,000 mg 1-04 tablet by ity of tablet 00:00: mouth 2 [place] (two) Medical times [place] daily with meals. gabapentin 2017-0 Yes [id number] 100mg Take 1 Univers 100 mg 1-04 capsule by ity of capsule 00:00: mouth at [place] 00 bedtime. Medical Branch blood sugar 2017-0 Yes Use as Univ ers diagnostic 1-04 directed, ity of (ACCU-CHEK 00:00: TID, [place] INNA) 00 DX:E11.9 Medical strip Branch Lancets 2017-0 Yes Use as Univers (ACCU-CHEK 1-04 directed, ity of FASTCLIX) 00:00: TID, [place] Misc 00 DX:E11.9 Medical Branch metFORMIN 2017-0 Yes [id number] 1000mg Take 1 Univers 1,000 mg 1-04 tablet by ity of tablet 00:00: mouth 2 [place] (two) Medical times Branch daily with meals. gabapentin 2017-0 Yes [id number] 100mg Take 1 Univers 100 mg 1-04 capsule by ity of capsule 00:00: mouth at [place] 00 bedtime. Medical Branch blood sugar 2017-0 Yes Use as Univ ers diagnostic 1-04 directed, ity of (ACCU-CHEK 00:00: TID, [place] INNA) 00 DX:E11.9 Medical strip Branch Lancets 2017-0 Yes Use as Univers (ACCU-CHEK 1-04 directed, ity of FASTCLIX) 00:00: TID, [place] Misc 00 DX:E11.9 Medical Branch metFORMIN 2017-0 Yes [id number] 1000mg Take 1 Univers 1,000 mg 1-04 tablet by ity of tablet 00:00: mouth 2 [place] 00 (two) Medical times Branch daily with meals. gabapentin 2017- Yes [id number] 100mg Take 1 Univers 100 mg 1-04 capsule by ity of capsule 00:00: mouth at [place] 00 bedtime. Medical Branch blood sugar 2016- Yes Use as Univ ers diagnostic 1-04 directed, ity of (ACCU-CHEK 00:00: TID, [place] INNA) 00 DX:E11.9 Medical strip Branch Lancets 2016-0 Yes Use as Univers (ACCU-CHEK 1-04 directed, ity of FASTCLIX) 00:00: TID, [place] Misc 00 DX:E11.9 Medical Branch metFORMIN 2016-0 Yes [id number] 1000mg Take 1 Univers 1,000 mg 1-04 tablet by ity of tablet 00:00: mouth 2 [place] (two) Medical times [place] daily with meals. gabapentin 2016-0 Yes [id number] 100mg Take 1 Univers 100 mg 1-04 capsule by ity of capsule 00:00: mouth at [place] 00 bedtime. Medical Branch blood sugar 2017-0 Yes Use as Univ ers diagnostic 1-04 directed, ity of (ACCU-CHEK 00:00: TID, [place] INNA) 00 DX:E11.9 Medical strip Branch Lancets 2017-0 Yes Use as Univers (ACCU-CHEK 1-04 directed, ity of FASTCLIX) 00:00: TID, [place] Misc 00 DX:E11.9 Medical Branch metFORMIN 2017-0 Yes [id number] 1000mg Take 1 Univers 1,000 mg 1-04 tablet by ity of tablet 00:00: mouth 2 [place] 00 (two) Medical times Branch daily with meals. gabapentin 2017-0 Yes [id number] 100mg Take 1 Univers 100 mg 1-04 capsule by ity of capsule 00:00: mouth at [place] 00 bedtime. Medical Branch blood sugar 2017-0 Yes Use as Univ ers diagnostic 1-04 directed, ity of (ACCU-CHEK 00:00: TID, [place] INNA) 00 DX:E11.9 Medical strip Branch Lancets 2017-0 Yes Use as Univers (ACCU-CHEK 1-04 directed, ity of FASTCLIX) 00:00: TID, [place] Misc 00 DX:E11.9 Medical Branch metFORMIN 2017-0 Yes [id number] 1000mg Take 1 Univers 1,000 mg 1-04 tablet by ity of tablet 00:00: mouth 2 [place] (two) Medical times [place] daily with meals. gabapentin 2017-0 Yes [id number] 100mg Take 1 Univers 100 mg 1-04 capsule by ity of capsule 00:00: mouth at [place] 00 bedtime. Medical Branch blood sugar 2016- Yes Use as Univ ers diagnostic 1-04 directed, ity of (ACCU-CHEK 00:00: TID, [place] INNA) 00 DX:E11.9 Medical strip Branch Lancets 2016-0 Yes Use as Univers (ACCU-CHEK 1-04 directed, ity of FASTCLIX) 00:00: TID, [place] Misc 00 DX:E11.9 Medical Branch metFORMIN 2017-0 Yes [id number] 1000mg Take 1 Univers 1,000 mg 1-04 tablet by ity of tablet 00:00: mouth 2 [place] (two) Medical times [place] daily with meals. gabapentin 2017- Yes [id number] 100mg Take 1 Univers 100 mg 1-04 capsule by ity of capsule 00:00: mouth at [place] [address] bedtime. Medical Branch blood sugar 2017-0 Yes Use as Univ ers diagnostic 1-04 directed, ity of (ACCU-CHEK 00:00: TID, [place] INNA) 00 DX:E11.9 Medical strip Branch Lancets 2017-0 Yes Use as Univers (ACCU-CHEK 1-04 directed, ity of FASTCLIX) 00:00: TID, [place] Misc 00 DX:E11.9 Medical Branch atorvastati 2017-0 2021- No [id number] 40mg Take 1 Univers n (LIPITOR) 1-04 02-04 tablet by it y of 40 mg 00:00: 00:00 mouth at [place] tablet 00 :00 bedtime. Medical Branch lisinopril 2016-2020- No [id number] 10mg Take 1 Univers 10 mg 06-13 tablet by ity of tablet 00:00: 00:00 mouth [place] 00 :00 daily. Medical Branch neomycin-po 2015-06- No Unive rs lymyxin-dex - ity of amethasone 00:00: 00:00 [place] (MAXITROL) 00 :00 Medical 3.5mg/mL-10 Branch ,000 unit/mL-0.1 % ophthalmic suspension drops insulin 2015-06- No [id number] 15U inject 15 Univers degludec 024 02-25 Units ity of (TRESIBA 00:00: 00:00 under the [place] as FLEXTOUCH 00 :00 skin every Medi ventura U-100) 100 morning. Branc h unit/mL (3 mL) InPn clindamycin 2015-06- No 300mg Take 1 [place] (CLEOCIN) 07-14 capsule by ity of 300 mg 00:00: 00:00 mouth 3 [place] capsule 00 :00 (three) Medical times Branch daily. For chronic bone infection of right toe/foot Immunizations Ordered Filled Immunization Date Status Comments [facility] e Immunization Name Name SARS-COV-2 COVID-19 2021-04-25 Completed Unive rsity of MODERNA BOOSTER 00:00:00 [facility] VACCINE Branch HEPLISAV HEP B, 2020-10-19 Completed Universit y of ADULT 2 DOSE, IM 00:00:00 [facility], 2020-10-19 Completed Universit y of ADULT 2 DOSE, IM 00:00:00 [facility]P [facility], 2020-10-19 Completed Universit y of ADULT 2 DOSE, IM 00:00:00 [facility] SARS-COV-2 COVID-19 2020-10-11 Completed Unive rsity of MODERNA VACCINE 00:00:00 [facility] SARS-COV-2 COVID-19 2020-10-11 Completed Unive rsity of MODERNA VACCINE 00:00:00 [facility] SARS-COV-2 COVID-19 2020-10-11 Completed Unive rsity of MODERNA VACCINE 00:00:00 [facility] ical Branch SARS-COV-2 COVID-19 2020-10-11 Completed Unive rsity of MODERNA VACCINE 00:00:00 [place] [facility] ical Branch SARS-COV-2 COVID-19 2020-09-13 Completed Unive rsity of MODERNA VACCINE 00:00:00 [place] [facility] ical Branch SARS-COV-2 COVID-19 2020-09-13 Completed Unive rsity of MODERNA VACCINE 00:00:00 [place] [facility] ical Branch SARS-COV-2 COVID-19 2020-09-13 Completed Unive rsity of MODERNA VACCINE 00:00:00 [facility] ical Branch SARS-COV-2 COVID-19 2020-09-13 Completed Unive rsity of MODERNA VACCINE 00:00:00 [facility] ical Branch Pneumococcal 2020-08-31 Completed University o f Polysaccharide, 00:00:00 [place] Med ical PPSV23 (PNEUMOVAX) Branch Pneumococcal 2020-08-31 Completed University o f Polysaccharide, 00:00:00 [place] Med ical PPSV23 (PNEUMOVAX) Branch Pneumococcal 2020-08-31 Completed University o f Polysaccharide, 00:00:00 [place] [facility] PPSV23 (PNEUMOVAX) Branch Pneumococcal 2020-08-31 Completed University o f Polysaccharide, 00:00:00 [place] [facility] PPSV23 (PNEUMOVAX) Branch Pneumococcal 2020-08-31 Completed University o f Polysaccharide, 00:00:00 [place] [facility] PPSV23 (PNEUMOVAX) Branch Pneumococcal 2020-08-31 Completed University o f Polysaccharide, 00:00:00 [place] [facility] PPSV23 (PNEUMOVAX) Branch Pneumococcal 2020-08-31 Completed University o f Polysaccharide, 00:00:00 [facility] ical PPSV23 (PNEUMOVAX) Branch Influenza Virus 2020-08-10 Completed Universit y of Vaccine Quad .5 mL 00:00:00 [facility] IM 6+ MO Branch HEPLISAV HEP B, 2020-08-10 Completed Universit y of ADULT 2 DOSE, IM 00:00:00 [facility] dical Branch Influenza Virus 2020-08-10 Completed Universit y of Vaccine Quad .5 mL 00:00:00 [facility] IM 6+ MO Branch HEPLISAV HEP B, 2020-08-10 Completed Universit y of ADULT 2 DOSE, IM 00:00:00 [facility] dical Branch Influenza Virus 2020-08-10 Completed Universit y of Vaccine Quad .5 mL 00:00:00 [facility] IM 6+ MO Branch HEPLISAV HEP B, 2020-08-10 Completed Universit y of ADULT 2 DOSE, IM 00:00:00 [facility] dical Branch Influenza Virus 2020-08-10 Completed Universit y of Vaccine Quad .5 mL 00:00:00 [facility] IM 6+ MO Branch HEPLISAV HEP B, 2020-08-10 Completed Universit y of ADULT 2 DOSE, IM 00:00:00 [facility] dical Branch Influenza Virus 2020-08-10 Completed Universit y of Vaccine Quad .5 mL 00:00:00 [facility] IM 6+ MO Branch HEPLISAV HEP B, 2020-08-10 Completed Universit y of ADULT 2 DOSE, IM 00:00:00 [facility] dical Branch Influenza Virus 2020-08-10 Completed Universit y of Vaccine Quad .5 mL 00:00:00 [facility] IM 6+ MO Branch HEPLISAV HEP B, 2020-08-10 Completed Universit y of ADULT 2 DOSE, IM 00:00:00 [facility] dical Branch Influenza Virus 2020-08-10 Completed Universit y of Vaccine Quad .5 mL 00:00:00 [facility] IM 6+ MO Branch HEPLISAV HEP B, 2020-08-10 Completed Universit y of ADULT 2 DOSE, IM 00:00:00 [facility] dical Branch Influenza Virus 2020-08-10 Completed Universit y of Vaccine Quad .5 mL 00:00:00 [facility] IM 6+ MO Branch HEPLISAV HEP B, 2020-08-10 Completed Universit y of ADULT 2 DOSE, IM 00:00:00 [facility] dical Branch Influenza Virus 2020-08-10 Completed Universit y of Vaccine Quad .5 mL 00:00:00 [facility] IM 6+ MO Branch HEPLISAV HEP B, 2020-08-10 Completed Universit y of ADULT 2 DOSE, IM 00:00:00 [facility] dical Branch Influenza Virus 2020-08-10 Completed Universit y of Vaccine Quad .5 mL 00:00:00 [facility] IM 6+ MO Branch HEPLISAV HEP B, 2020-08-10 Completed Universit y of ADULT 2 DOSE, IM 00:00:00 [facility] dical Branch Influenza Virus 2020-08-10 Completed Universit y of Vaccine Quad .5 mL 00:00:00 [facility] 6+ MO Branch HEPLISAV HEP B, 2020-08-10 Completed Universit y of ADULT 2 DOSE, IM 00:00:00 [facility] dicil Branch TDAP 2020-07-15 Completed University of 00:00:00 [facility] TDAP 2020-07-15 Completed University of 00:00:00 [facility] TDAP 2020-07-15 Completed University of 00:00:00 [facility] TDAP 2020-07-15 Completed University of 00:00:00 [facility] TDAP 2020-07-15 Completed University of 00:00:00 [facility] TDAP 2020-07-15 Completed University of 00:00:00 [facility] TDAP 2020-07-15 Completed University of 00:00:00 [facility] TDAP 2020-07-15 Completed University of 00:00:00 [facility] TDAP 2020-07-15 Completed University of 00:00:00 [facility] TDAP 2020-07-15 Completed University of 00:00:00 [facility] TDAP 2020-07-15 Completed University of 00:00:00 [facility] TDAP 2020-07-15 Completed University of 00:00:00 [facility] TDAP 2020-07-15 Completed University of 00:00:00 [facility] TDAP 2020-07-15 Completed University of 00:00:00 [facility] TDAP 2020-07-15 Completed University of 00:00:00 [facility] TDAP 2020-07-15 Completed University of 00:00:00 [facility] TDAP 2020-07-15 Completed University of 00:00:00 [facility] Influenza Virus 2016-03-22 Completed Universit y of Vaccine Quad IM 3+ 00:00:00 [facility] Influenza Virus 2016-03-22 Completed Universit y of Vaccine Quad IM 3+ 00:00:00 [facility] Influenza Virus 2016-03-22 Completed Universit y of Vaccine Quad IM 3+ 00:00:00 [facility] Influenza Virus 2016-03-22 Completed Universit y of Vaccine Quad IM 3+ 00:00:00 [facility] Influenza Virus 2016-03-22 Completed Universit y of Vaccine Quad IM 3+ 00:00:00 [facility] Influenza Virus 2016-03-22 Completed Universit y of Vaccine Quad IM 3+ 00:00:00 [facility] Influenza Virus 2016-03-22 Completed Universit y of Vaccine Quad IM 3+ 00:00:00 [facility] Influenza Virus 2016-03-22 Completed Universit y of Vaccine Quad IM 3+ 00:00:00 [facility] Influenza Virus 2016-03-22 Completed Universit y of Vaccine Quad IM 3+ 00:00:00 [facility] Influenza Virus 2016-03-22 Completed Universit y of Vaccine Quad IM 3+ 00:00:00 [facility] Influenza Virus 2016-03-22 Completed Universit y of Vaccine Quad IM 3+ 00:00:00 [facility] Influenza Virus 2016-03-22 Completed Universit y of Vaccine Quad IM 3+ 00:00:00 [facility] Influenza Virus 2016-03-22 Completed Universit y of Vaccine Quad IM 3+ 00:00:00 [facility] Influenza Virus 2016-03-22 Completed Universit y of Vaccine Quad IM 3+ 00:00:00 [facility] Influenza Virus 2016-03-22 Completed Universit y of Vaccine Quad IM 3+ 00:00:00 [facility] Influenza Virus 2016-03-22 Completed Universit y of Vaccine Quad IM 3+ 00:00:00 [facility] Influenza Virus 2016-03-22 Completed Universit y of Vaccine Quad IM 3+ 00:00:00 [facility] Pneumococcal 2014-08-27 Completed University o f Polysaccharide, 00:00:00 [place] [facility] PPSV23 (PNEUMOVAX) [place] Influenza Virus 2014-08-27 Completed Universit y of Vaccine Quad IM 3+ 00:00:00 [facility] Pneumococcal 2014-08-27 Completed University o f Polysaccharide, 00:00:00 [place] [facility] PPSV23 (PNEUMOVAX) [place] Influenza Virus 2014-08-27 Completed Universit y of Vaccine Quad IM 3+ 00:00:00 [facility] Pneumococcal 2014-08-27 Completed University o f Polysaccharide, 00:00:00 [place] [facility] PPSV23 (PNEUMOVAX) Branch Influenza Virus 2014-08-27 Completed Universit y of Vaccine Quad IM 3+ 00:00:00 [facility] Pneumococcal 2014-08-27 Completed University o f Polysaccharide, 00:00:00 [place] [facility] PPSV23 (PNEUMOVAX) Branch Influenza Virus 2014-08-27 Completed Universit y of Vaccine Quad IM 3+ 00:00:00 [facility] Pneumococcal 2014-08-27 Completed University o f Polysaccharide, 00:00:00 [place] [facility] PPSV23 (PNEUMOVAX) Branch Influenza Virus 2014-08-27 Completed Universit y of Vaccine Quad IM 3+ 00:00:00 [facility] Pneumococcal 2014-08-27 Completed University o f Polysaccharide, 00:00:00 [place] [facility] PPSV23 (PNEUMOVAX) Branch Influenza Virus 2014-08-27 Completed Universit y of Vaccine Quad IM 3+ 00:00:00 [facility] Pneumococcal 2014-08-27 Completed University o f Polysaccharide, 00:00:00 [place] [facility] PPSV23 (PNEUMOVAX) Branch Influenza Virus 2014-08-27 Completed Universit y of Vaccine Quad IM 3+ 00:00:00 [facility] Pneumococcal 2014-08-27 Completed University o f Polysaccharide, 00:00:00 [place] [facility] PPSV23 (PNEUMOVAX) Branch Influenza Virus 2014-08-27 Completed Universit y of Vaccine Quad IM 3+ 00:00:00 [facility] Pneumococcal 2014-08-27 Completed University o f Polysaccharide, 00:00:00 [place] [facility] PPSV23 (PNEUMOVAX) Branch Influenza Virus 2014-08-27 Completed Universit y of Vaccine Quad IM 3+ 00:00:00 [facility] Pneumococcal 2014-08-27 Completed University o f Polysaccharide, 00:00:00 [place] [facility] PPSV23 (PNEUMOVAX) Branch Influenza Virus 2014-08-27 Completed Universit y of Vaccine Quad IM 3+ 00:00:00 [facility] Pneumococcal 2014-08-27 Completed University o f Polysaccharide, 00:00:00 [place] [facility] PPSV23 (PNEUMOVAX) Branch Influenza Virus 2014-08-27 Completed Universit y of Vaccine Quad IM 3+ 00:00:00 [facility] Pneumococcal 2014-08-27 Completed University o f Polysaccharide, 00:00:00 [place] [facility] PPSV23 (PNEUMOVAX) Branch Influenza Virus 2014-08-27 Completed Universit y of Vaccine Quad IM 3+ 00:00:00 [facility] Pneumococcal 2014-08-27 Completed University o f Polysaccharide, 00:00:00 [place] [facility] PPSV23 (PNEUMOVAX) Branch Influenza Virus 2014-08-27 Completed Universit y of Vaccine Quad IM 3+ 00:00:00 [facility] Pneumococcal 2014-08-27 Completed University o f Polysaccharide, 00:00:00 [place] [facility] PPSV23 (PNEUMOVAX) Branch Influenza Virus 2014-08-27 Completed Universit y of Vaccine Quad IM 3+ 00:00:00 [facility] Pneumococcal 2014-08-27 Completed University o f Polysaccharide, 00:00:00 [place] [facility] PPSV23 (PNEUMOVAX) Branch Influenza Virus 2014-08-27 Completed Universit y of Vaccine Quad IM 3+ 00:00:00 [facility] Pneumococcal 2014-08-27 Completed University o f Polysaccharide, 00:00:00 [place] [facility] PPSV23 (PNEUMOVAX) Branch Influenza Virus 2014-08-27 Completed Universit y of Vaccine Quad IM 3+ 00:00:00 [facility] Pneumococcal 2014-08-27 Completed University o f Polysaccharide, 00:00:00 [place] [facility] PPSV23 (PNEUMOVAX) Branch Influenza Virus 2014-08-27 Completed Universit y of Vaccine Quad IM 3+ 00:00:00 [facility] Vital Signs Vital Name Observation Time Observation Value Comments Source Systolic blood 2020-10-19 14:07:00 120 mm[Hg] Univer sity of pressure [facility] Diastolic blood 2020-10-19 14:07:00 75 mm[Hg] Unive rsity of pressure [facility] Heart rate 2020-10-19 14:07:00 88 /min [facility] Body temperature 2020-10-19 14:07:00 36.78 Carmela [facility] 2020-10-19 14:07:00 18 /min [facility] Body height 2020-10-19 14:07:00 177.8 cm [facility] Body weight 2020-10-19 14:07:00 98.294 kg [facility] BMI 2020-10-19 14:07:00 31.09 kg/m2 [facility] [place] [facility] Systolic blood 2020-08-31 14:26:00 122 mm[Hg] Univer sity of pressure [facility] Diastolic blood 2020-08-31 14:26:00 79 mm[Hg] Unive rsity of pressure [facility] Heart rate 2020-08-31 14:26:00 99 /min [facility] [place] [facility] Body temperature 2020-08-31 14:26:00 36.89 Carmela [facility] [place] [facility] Body height 2020-08-31 14:26:00 177.8 cm [facility] [place] [facility] Body weight 2020-08-31 14:26:00 84.823 kg [facility] [place] [facility] BMI 2020-08-31 14:26:00 26.83 kg/m2 [facility] [place] [facility] Systolic blood 2020-08-10 15:24:00 82 mm[Hg] Univer sity of pressure [facility] Diastolic blood 2020-08-10 15:24:00 53 mm[Hg] Unive rsity of pressure [facility] Heart rate 2020-08-10 15:24:00 108 /min [facility] [place] [facility] Body temperature 2020-08-10 15:21:00 36.56 Carmela [facility] [place] [facility] Respiratory rate 2020-08-10 15:21:00 16 /min [facility] [place] [facility] Body height 2020-08-10 15:21:00 177.8 cm [facility] [place] [facility] Body weight 2020-08-10 15:21:00 84.823 kg [facility] [place] [facility] BMI 2020-08-10 15:21:00 26.83 kg/m2 [facility] [place] [facility] Body temperature 2020-08-09 16:16:00 36.22 Carmela [facility] [place] [facility] Body weight 2020-08-09 16:16:00 79.652 kg [facility] [place] [facility] BMI 2020-08-09 16:16:00 25.20 kg/m2 [facility] [place] [facility] Systolic blood 2020-08-04 22:01:00 145 mm[Hg] Univer sity of pressure [facility] Diastolic blood 2020-08-04 22:01:00 81 mm[Hg] [facility] pressure [facility] Heart rate 2020-08-04 22:01:00 89 /min [facility] Body temperature 2020-08-04 22:01:00 36.61 Carmela [facility] Respiratory rate 2020-08-04 22:01:00 18 /min [facility] Oxygen saturation in 2020-08-04 22:01:00 98 /min [facility] Arterial blood by [facility] Pulse oximetry [place] Body weight 2020-07-28 12:03:00 84.959 kg [facility] BMI 2020-07-28 12:03:00 26.87 kg/m2 [facility] Body height 2020-07-14 20:47:00 177.8 cm [facility] Procedures Procedure Date / Time Performing Clinician Source Performed SARS-COV-2 COVID-19 2021-04-25 20:23:50 Doctor Unassigned, [facility] VACCINE BOOSTER,0.25ML,IM [facility] (MODERNA) HEPLISAV HEP B 2020-10-19 14:24:37 Moody Hernandez [facility] VACCINE,ADULT 2 DOSE,IM [facility] PNEUMOCOCCAL VACCINE, 2020-08-31 14:43:35 Moody Hernandez [facility] 23-VALENT (PNEUMOVAX) Medical Br anch HEPLISAV HEP B 2020-08-10 16:05:26 Moody Hernandez [facility] VACCINE,ADULT 2 DOSE,IM Medical Branch FLU VACC ([id number]), 6+ 2020-08-10 16:03:59 [facility]AD Medical Branch ASSIGNMENT OF BENEFITS 2020-08-09 16:03:44 Doctor Unassigned, [facility] POCT GLUCOSE (AUTOMATED) 2020-08-04 23:33:00 Willis Russ [facility] POCT GLUCOSE (AUTOMATED) 2020-08-04 19:36:00 Willis Russ [facility] PROTEIN CREAT RATIO URINE 2020-08-04 17:56:00 Poly Maguire [facility] RANDOM Medical Branch SODIUM, URINE RANDOM 2020-08-04 17:56:00 Poly Maguire [facility] Medical [place] POCT GLUCOSE (AUTOMATED) 2020-08-04 15:10:00 Willis Russ [facility] MAGNESIUM 2020-08-04 10:13:00 Filiberto Lopez [facility] BASIC METABOLIC PANEL 2020-08-04 10:13:00 Filiberto Lopez [facility] (NA, K, CL, CO2, GLUCOSE, Medica l Branch BUN, CREATININE, CA) CBC WITHOUT DIFF 2020-08-04 10:07:00 Filiberto Lopez [facility] BASIC METABOLIC PANEL 2020-08-04 04:23:00 Filiberto Lopez [facility] (NA, K, CL, CO2, GLUCOSE, Medica l Branch BUN, CREATININE, CA) POCT GLUCOSE (AUTOMATED) 2020-08-04 03:10:00 Willis Russ [facility] POCT GLUCOSE (AUTOMATED) 2020-08-03 22:59:00 Willis Russ [facility] POCT GLUCOSE (AUTOMATED) 2020-08-03 19:05:00 Willis Russ [facility] POCT GLUCOSE (AUTOMATED) 2020-08-03 15:46:00 Willis Russ [facility] POCT GLUCOSE (AUTOMATED) 2020-08-03 03:26:00 Willis Russ [facility] POCT GLUCOSE (AUTOMATED) 2020-08-02 23:07:00 Willis Russ [facility] FUNGUS (ROUTINE) CULTURE 2020-08-02 19:33:00 Tisha Burrell [facility] TISSUE 2020-08-02 19:33:00 Mary Burrell [facility] CULTURE(AEROBIC/ANAEROBIC A Medica l Branch ) FOOT DEBRIDEMENT 2020-08-02 18:10:00 Mary Burrell [facility] A Medical Branch APPLICATION 2020-08-02 18:10:00 [facility]UUM-ASSISTED DRAINAGE A Medical Branch DEVICE LOWER EXTREMITY POCT GLUCOSE (AUTOMATED) 2020-08-02 15:34:00 Kim Chaudhari Melissa [facility] COVID-19 (ID NOW RAPID 2020-08-02 10:09:00 Kavin Saucedo [facility] TESTING) Medical Branch LAB ONLY COVID 2020-08-02 10:09:00 Kavin Saucedo o [facility] INTERPRETATION [facility] POCT GLUCOSE (AUTOMATED) 2020-08-02 03:25:00 Елена Chaudharicamilo Torres [facility] POCT GLUCOSE (AUTOMATED) 2020-08-01 23:27:00 Елена Chaudharicamilo Torres [facility] VANCOMYCIN TROUGH 2020-08-01 19:55:00 Ting [facility] POCT GLUCOSE (AUTOMATED) 2020-08-01 19:20:00 Елена Chaudharicamilo Torres [facility] POCT GLUCOSE (AUTOMATED) 2020-08-01 15:03:00 Kim Chaudhari [facility] BASIC METABOLIC PANEL 2020-08-01 11:20:00 [facility] (NA, K, CL, CO2, GLUCOSE, Medica l Branch BUN, CREATININE, CA) CBC WITHOUT DIFF 2020-08-01 11:20[facility] 2020-08-01 02:38:00 Елена Chaudhariah Melissa [facility] POCT GLUCOSE (AUTOMATED) 2020-07-31 23:35:00 Елена Chaudhariah Melissa [facility] POCT GLUCOSE (AUTOMATED) 2020-07-31 18:59:00 Fara Kim Torres [facility] POCT GLUCOSE (AUTOMATED) 2020-07-31 15:28:00 [facility]OLIC PANEL 2020-07-31 10:54:00 [facility] (NA, K, CL, CO2, GLUCOSE, Medica l Branch BUN, CREATININE, CA) CBC WITHOUT DIFF 2020-07-31 10:54:00 [facility] 2020-07-31 05:17:00 FaraKim [facility] POCT GLUCOSE (AUTOMATED) 2020-07-31 02:44:00 FaraKim [facility] POCT GLUCOSE (AUTOMATED) 2020-07-30 23:39:00 FaraKim [facility] POCT GLUCOSE (AUTOMATED) 2020-07-30 19:05:00 FaraKim [facility] BASIC METABOLIC PANEL 2020-07-30 10:03:00 [facility] ([facility], CL, CO2, GLUCOSE, Medica l Branch BUN, CREATININE, CA) CBC WITHOUT DIFF 2020-07-30 10:03:00 Jessica [facility] POCT GLUCOSE (AUTOMATED) 2020-07-30 03:56:00 FaraKim [facility] MR FOOT LEFT W WO 2020-07-30 03:[facility] 2020-07-29 22:53:00 FaraKim [facility] POCT GLUCOSE (AUTOMATED) 2020-07-29 18:20:00 Fara Kim Torres [facility] POCT GLUCOSE (AUTOMATED) 2020-07-29 14:45:00 FaraKim [facility] BASIC METABOLIC PANEL 2020-07-29 10:35:00 [facility] ([facility], K, CL, CO2, GLUCOSE, Medica l Branch BUN, CREATININE, CA) CBC WITHOUT DIFF 2020-07-29 10:35:00 Jessica [facility] POCT GLUCOSE (AUTOMATED) 2020-07-29 02:48:00 Fara Kim Torres [facility] XR BONE SURVEY 2020-07-29 02:31:00 [facility] POCT GLUCOSE (AUTOMATED) 2020-07-28 23:58:00 Fara Kim Torres [facility] POCT GLUCOSE (AUTOMATED) 2020-07-28 18:57:00 Kim Chaudhari [facility] VANCOMYCIN TROUGH 2020-07-28 18:35:00 Filiberto Lopez [facility] POCT GLUCOSE (AUTOMATED) 2020-07-28 16:17:00 Kim Chaudhari [facility] FOOT DEBRIDEMENT 2020-07-28 13:00:00 Mary Burrell [facility] POCT GLUCOSE (AUTOMATED) 2020-07-28 12:05:00 FaraKim [facility] BASIC METABOLIC PANEL 2020-07-28 10:44:00 [facility] (NA, K, CL, CO2, GLUCOSE, Medica l Branch BUN, CREATININE, CA) CBC WITHOUT DIFF 2020-07-28 10:44:00 [facility]) 2020-07-28 03:16:00 Fara Kim Torres [facility] POCT GLUCOSE (AUTOMATED) 2020-07-27 23:36:00 FaraKim [facility] POCT GLUCOSE (AUTOMATED) 2020-07-27 20:37:00 [facility] ([facility]OMATED) 2020-07-27 17:59:00 Fara [facility] POCT GLUCOSE (AUTOMATED) 2020-07-27 14:25:00 Fara Kim [facility] BASIC METABOLIC PANEL 2020-07-27 10:24:00 [facility] (NA, K, CL, CO2, GLUCOSE, Medica l Branch BUN, CREATININE, CA) CBC WITHOUT DIFF 2020-07-27 10:24:00 Jessica [facility] POCT GLUCOSE (AUTOMATED) 2020-07-27 02:22:00 [facility] ([facility]OMATED) 2020-07-26 23:08:00 Fara [facility] COVID-19 (ID NOW RAPID 2020-07-26 22:46:00 [facility] LAB ONLY COVID 2020-07-26 22:46:00 Ting [facility] skylar jaquez [facility] POCT GLUCOSE (AUTOMATED) 2020-07-26 18:59:00 Fara Kim Torres [facility] POCT GLUCOSE (AUTOMATED) 2020-07-26 15:04:00 Fara Kim Torres [facility] BASIC METABOLIC PANEL 2020-07-26 11:15:00 [facility] ([facility], K, CL, CO2, GLUCOSE, Medica l Branch BUN, CREATININE, CA) CBC WITHOUT DIFF 2020-07-26 11:15:00 Jessica [facility] POCT GLUCOSE (AUTOMATED) 2020-07-26 03:02:00 [facility] ([facility]OMATED) 2020-07-25 23:04:00 Елена Chaudharicamilo Torres [facility] VANCOMYCIN TROUGH 2020-07-25 16:29:00 Jessica [facility] POCT GLUCOSE (AUTOMATED) 2020-07-25 16:21:00 [facility] BAS[facility]OLIC PANEL 2020-07-25 12:25:00 [facility] ([facility], K, CL, CO2, GLUCOSE, Medica l Branch BUN, CREATININE, CA) CBC WITH DIFF 2020-07-25 12:25:00 Jessica [facility] POCT GLUCOSE (AUTOMATED) 2020-07-25 03:10:00 [facility] ([facility]OMATED) 2020-07-24 23:02:00 [facility] PO[facility]SE (AUTOMATED) 2020-07-24 18:59:00 Fara [facility] POCT GLUCOSE (AUTOMATED) 2020-07-24 14:35:00 [facility] (AUTOMATED) 2020-07-24 09:30:00 [facility] MAGNESIUM 2020-07-24 06:33:00 Filiberto Lopez [facility] BASIC METABOLIC PANEL 2020-07-24 06:33:00 Filiberto Lopez [facility] (NA, K, CL, CO2, GLUCOSE, Medica l Branch BUN, CREATININE, CA) POCT GLUCOSE (AUTOMATED) 2020-07-24 06:25:00 Fara Kim Torres [facility] POCT GLUCOSE (AUTOMATED) 2020-07-24 03:04:00 FaraKim [facility] POCT GLUCOSE (AUTOMATED) 2020-07-23 23:26:00 FaraKim [facility] POCT GLUCOSE (AUTOMATED) 2020-07-23 19:48:00 Fara Kim Torres [facility] POCT GLUCOSE (AUTOMATED) 2020-07-23 16:17:00 Fara Kim Torres [facility] MAGNESIUM 2020-07-23 10:41:00 Filiberto Lopez [facility] BASIC METABOLIC PANEL 2020-07-23 10:41:00 [facility] (NA, K, CL, CO2, GLUCOSE, Medica l Branch BUN, CREATININE, CA) VANCOMYCIN RANDOM LEVEL 2020-07-23 10:41:00 Filiberto Lopez [facility] POCT GLUCOSE (AUTOMATED) 2020-07-23 10:33:00 Fara Kim Torres [facility] POCT GLUCOSE (AUTOMATED) 2020-07-23 06:01:00 Fara Kim Torres [facility] POCT GLUCOSE (AUTOMATED) 2020-07-23 03:35:00 Fara Kim Torres [facility] POCT GLUCOSE (AUTOMATED) 2020-07-22 23:41:00 Fara Kim Torres [facility] BASIC METABOLIC PANEL 2020-07-22 20:27:00 Filiberto Lopez [facility] (NA, K, CL, CO2, GLUCOSE, Medica l Branch BUN, CREATININE, CA) POCT GLUCOSE (AUTOMATED) 2020-07-22 19:05:00 Fara Kim Torres [facility] POCT GLUCOSE (AUTOMATED) 2020-07-22 15:03:00 Fara Kim Torres [facility] MAGNESIUM 2020-07-22 11:49:00 Filiberto Lopez [facility] BASIC METABOLIC PANEL 2020-07-22 11:49:00 Filiberto Lopez [facility] (NA, K, CL, CO2, GLUCOSE, Medica l Branch BUN, CREATININE, CA) CBC WITHOUT DIFF 2020-07-22 11:49:00 Filiberto Lopez [facility] POCT GLUCOSE (AUTOMATED) 2020-07-22 11:48:00 Fara Kim [facility] POCT GLUCOSE (AUTOMATED) 2020-07-22 10:07:00 [facility]ATED) 2020-07-22 08:50:00 [facility] ([facility]OMATED) 2020-07-22 06:26:00 [facility] PO[facility] GLUCOSE (AUTOMATED) 2020-07-22 04:32:00 Fara [facility] CREATININE, URINE RANDOM 2020-07-22 00:15:00 [facility] SODIUM, URINE RANDOM 2020-07-22 00:15:[address] [facility] POCT GLUCOSE (AUTOMATED) 2020-07-22 00:00:00 [facility] VANCOMYCIN TROUGH 2020-07-21 21:11:00 Patricio Elam [facility] POCT GLUCOSE (AUTOMATED) 2020-07-21 20:44:00 Елена Chaudhariah [facility] POCT GLUCOSE (AUTOMATED) 2020-07-21 18:09:00 Fara Kim [facility] FUNGUS (ROUTINE) CULTURE 2020-07-21 17:45:08 Tisha Burrell [facility] A Medical [place] TISSUE 2020-07-21 17:45:00 Mary Burrell [facility] CULTURE(AEROBIC/ANAEROBIC A Medica l Branch ) FOOT DEBRIDEMENT 2020-07-21 17:09:00 Mary Burrell [facility] A Medical Branch COVID-19 (ID NOW RAPID 2020-07-21 16:19:00 [facility] TESTING) Medical Branch LAB ONLY COVID 2020-07-21 16:19:00 [facility] INTERPRETATION [facility] POCT GLUCOSE (AUTOMATED) 2020-07-21 13:47:00 Kim Chaudhari [facility] MAGNESIUM 2020-07-21 09:31:00 [facility] BASIC METABOLIC PANEL 2020-07-21 09:31:00 [facility] (NA, K, CL, CO2, GLUCOSE, Medica l Branch BUN, CREATININE, CA) CBC WITH DIFF 2020-07-21 09:31:[address] [facility] PO[facility]UCOSE (AUTOMATED) 2020-07-21 09:30:00 Fara [facility] POCT GLUCOSE (AUTOMATED) 2020-07-21 09:28:00 Fara [facility] POCT GLUCOSE (AUTOMATED) 2020-07-21 03:24:00 Fara [facility] VANCOMYCIN TROUGH 2020-07-21 02:42:00 Filiberto Lopez [facility] POCT GLUCOSE (AUTOMATED) 2020-07-20 23:37:00 Fara [facility] POCT GLUCOSE (AUTOMATED) 2020-07-20 18:42:00 Fara [facility] POCT GLUCOSE (AUTOMATED) 2020-07-20 15:00:00 Fara [facility] MAGNESIUM 2020-07-20 10:49:00 [facility] BASIC METABOLIC PANEL 2020-07-20 10:49:00 Kamaljit Dickerson [facility] (NA, K, CL, CO2, GLUCOSE, Medica l Branch BUN, CREATININE, CA) CBC WITH DIFF 2020-07-20 10:49:00 Tuan [facility] POCT GLUCOSE (AUTOMATED) 2020-07-20 10:39:00 [facility] 2020-07-20 05:22:00 Kim [facility]ari [facility] PO[facility] GLUCOSE (AUTOMATED) 2020-07-20 02:36:00 Kim [facility]aud[facility]ari [facility] POCT GLUCOSE (AUTOMATED) 2020-07-20 01:10:00 FaraKim [facility] POCT GLUCOSE (AUTOMATED) 2020-07-20 00:58:00 FaraKim [facility] VANCOMYCIN TROUGH 2020-07-19 21:39:00 Filiberto Lopez [facility] POCT GLUCOSE (AUTOMATED) 2020-07-19 20:06:00 Kim Chaudhari [facility] POCT GLUCOSE (AUTOMATED) 2020-07-19 18:16:00 Kim Chaudhari [facility] FUNGUS (ROUTINE) CULTURE 2020-07-19 17:30:53 Tisha Burrell [facility] TISSUE 2020-07-19 17:30:53 Mary Burrell [facility] CULTURE(AEROBIC/ANAEROBIC A Medica l [place] ) ASPIRATE OR ABSCESS 2020-07-19 17:29:03 Mary Burrell [facility] CULTURE(AEROBIC/ANAEROBIC A [facility] [place] [facility] AFB CULTURE 2020-07-19 17:29:03 Mary Burrell [facility] FUNGUS (ROUTINE) CULTURE 2020-07-19 17:29:03 Tisha Burrell [facility] FOOT DEBRIDEMENT 2020-07-19 16:48:00 Mary Burrell [facility] POCT GLUCOSE (AUTOMATED) 2020-07-19 14:16:00 Inga Gilbert [facility] MAGNESIUM 2020-07-19 11:46:00 Kamaljit Dickerson [facility] BASIC METABOLIC PANEL 2020-07-19 11:46:00 Kamaljit Dickerson [facility] (NA, K, CL, CO2, GLUCOSE, Medica l Branch BUN, CREATININE, CA) CBC WITH DIFF 2020-07-19 11:46:00 Dickerson [facility] POCT GLUCOSE (AUTOMATED) 2020-07-19 11:21:00 Vladimir [facility] POCT GLUCOSE (AUTOMATED) 2020-07-19 07:54:00 Vladimir [facility] POCT GLUCOSE (AUTOMATED) 2020-07-19 03:09:00 Vladimir [facility] POCT GLUCOSE (AUTOMATED) 2020-07-18 23:00:00 Vladimir [facility] POCT GLUCOSE (AUTOMATED) 2020-07-18 18:41:00 Vladimir [facility] VANCOMYCIN TROUGH 2020-07-18 14:44:00 Kavin Saucedo [facility] BLOOD CULTURE SCREEN 2020-07-18 14:37:00 Kavin Saucedo [facility] POCT GLUCOSE (AUTOMATED) 2020-07-18 14:14:00 Vladimir [facility] POCT GLUCOSE (AUTOMATED) 2020-07-18 10:19:00 Vladimir [facility] CBC WITH DIFF 2020-07-18 10:16:00 [facility] MAGNESIUM 2020-07-18 10:15:00 [facility] BASIC METABOLIC PANEL 2020-07-18 10:15:00 Kamaljit Dickerson [facility] (NA, K, CL, CO2, GLUCOSE, Medica l Branch BUN, CREATININE, CA) POCT GLUCOSE (AUTOMATED) 2020-07-18 06:00:00 Vladimir [facility] POCT GLUCOSE (AUTOMATED) 2020-07-18 01:45:00 Vladimir [facility] POCT GLUCOSE (AUTOMATED) 2020-07-17 22:55:00 Vladimir [facility] POCT GLUCOSE (AUTOMATED) 2020-07-17 21:38:00 Vladimir [facility] POCT GLUCOSE (AUTOMATED) 2020-07-17 17:58:00 Vladimir [facility] POCT GLUCOSE (AUTOMATED) 2020-07-17 13:12:00 Vladimir [facility] MAGNESIUM 2020-07-17 11:08:00 Jet [facility] BASIC METABOLIC PANEL 2020-07-17 11:08:00 Kamaljit Dickerson [facility] (NA, K, CL, CO2, GLUCOSE, Medica l Branch BUN, CREATININE, CA) CBC WITH DIFF 2020-07-17 11:08:00 Tuan [facility] POCT GLUCOSE (AUTOMATED) 2020-07-17 09:58:00 Vladimir [facility] POCT GLUCOSE (AUTOMATED) 2020-07-17 05:49:00 Vladimir [facility] POCT GLUCOSE (AUTOMATED) 2020-07-17 02:15:00 [facility] POCT GLUCOSE (AUTOMATED) 2020-07-16 22:50:00 Vladimir [facility] POCT GLUCOSE (AUTOMATED) 2020-07-16 18:58:00 Vladimir [facility] VANCOMYCIN TROUGH 2020-07-16 17:33:00 [facility] ([facility]) 2020-07-16 15:14:00 Vladimir [facility] MAGNESIUM 2020-07-16 10:12:00 Jet [facility] BASIC METABOLIC PANEL 2020-07-16 10:12:00 Kamaljit Dickerson [facility] (NA, K, CL, CO2, GLUCOSE, Medica l Branch BUN, CREATININE, CA) CBC WITH DIFF 2020-07-16 10:12:00 Tuan [facility] POCT GLUCOSE (AUTOMATED) 2020-07-16 10:02:00 Vladimir [facility] POCT GLUCOSE (AUTOMATED) 2020-07-16 06:21:00 [facility]) 2020-07-16 02:12:00 [facility] PO[facility]SE (AUTOMATED) 2020-07-15 23:46:00 Inga Gilbertbeth [facility] FUNGUS (ROUTINE) CULTURE 2020-07-15 20:56:36 Tisha Burrell [facility] TISSUE 2020-07-15 20:56:36 Mary Burrell [facility] CULTURE(AEROBIC/ANAEROBIC A Medica l [place] ) ASPIRATE OR ABSCESS 2020-07-15 20:51:22 Mary Burrell [facility] CULTURE(AEROBIC/ANAEROBIC A Medica l [place] ) AFB CULTURE 2020-07-15 20:51:22 Mary Burrell [facility] FUNGUS (ROUTINE) CULTURE 2020-07-15 20:51:22 Tisha Burrell [facility] FOOT DEBRIDEMENT 2020-07-15 20:18:00 Mary Burrell [facility] POCT GLUCOSE (AUTOMATED) 2020-07-15 19:54:00 [facility] ([facility]OMATED) 2020-07-15 17:59:00 Inga [facility] XR ANKLE 3+ VW LEFT 2020-07-15 16:01:00 OgunJay pepperMary Uni [facility] XR FOOT 3+ VW LEFT 2020-07-15 16:01:00 OgunJay pepperMary Uni [facility] POCT GLUCOSE (AUTOMATED) 2020-07-15 14:25:00 Inga Gilbert [facility] MAGNESIUM 2020-07-15 10:36:00 Kamaljit Dickerson [facility] C-REACTIVE PROTEIN 2020-07-15 10:36:00 Kamaljit Dickerson [facility] BASIC METABOLIC PANEL 2020-07-15 10:36:00 Kamaljit Dickerson [facility] (NA, K, CL, CO2, GLUCOSE, Medica l Branch BUN, CREATININE, CA) LIPID PANEL (72632)(TOTAL 2020-07-15 10:36:00 Kavin Saucedo [facility] CHOLESTEROL, [facility] TRIGLYCERIDES, HDL) CBC WITH DIFF 2020-07-15 10:36:00 Kamaljit Dickerson [facility] POCT GLUCOSE (AUTOMATED) 2020-07-15 10:25:00 Vladimir [facility] POCT GLUCOSE (AUTOMATED) 2020-07-15 06:20:00 Vladimir [facility] POCT GLUCOSE (AUTOMATED) 2020-07-15 02:48:00 Vladimir [facility] CT TIBIA FIBULA LEFT W 2020-07-15 00:27:00 Kamaljit Dickerson [facility] POCT GLUCOSE (AUTOMATED) 2020-07-14 23:38:00 Vladimir [facility] SEDIMENTATION RATE 2020-07-14 23:33:00 Kamaljit Dickerson [facility] WOUND/ASPIRATE OR ABSCESS 2020-07-14 23:28:00 Kamaljit Dickerson [facility] WOUND CULTURE 2020-07-14 23:28:00 Kamaljit Dickerson [facility] BLOOD CULTURE SCREEN 2020-07-14 17:58:00 Lavinia Ash [facility] LACTIC ACID WHOLE BLOOD 2020-07-14 16:28:00 Lavinia Ash [facility] BLOOD CULTURE SCREEN 2020-07-14 16:26:00 Lavinia Ash [facility] BASIC METABOLIC PANEL 2020-07-14 16:26:00 Lavinia Ash [facility] (NA, K, CL, CO2, GLUCOSE, Medica l Branch BUN, CREATININE, CA) CBC WITH DIFF 2020-07-14 16:26:00 Lavinia Ahs [facility] GLYCOSYLATED HEMOGLOBIN 2020-07-14 16:26:00 Kamaljit Dickerson [facility] (A1C) Medical Branch COVID-19 (ID NOW RAPID 2020-07-14 16:26:00 Lavinai Ash [facility] TESTING) Medical Branch LAB ONLY COVID 2020-07-14 16:26:00 Lavinia Ash [facility] [place] INTERPRETATION [facility] NOTICE OF PRIVACY 2020-07-14 16:04:08 Doctor Unaroslyn, [facility] PRACTICES [facility] [place] CONSENT/REFUSAL FOR 2020-07-14 16:03:48 Doctor Thu, [facility] DIAGNOSIS AND TREATMENT [facility] [place] AGREEMENTS AUTHORIZATIONS 2020-07-14 06:01:00 Doctor Thu, [facility] AND IRREVOCABLE [place] [facility] ASSIGNMENTS (FORM 2000) HOSPITAL ADMISSION 2020-07-14 06:01:00 Doctor Thu [facility] [place] [facility] Encounters Start End Encounter Admission Attending Care Care Encounter Source Date/Time Date/Time Type Type Clinicians Facility Department ID 2021-04-08 Emergency [facility] [id number] Univers [facility]-04-25 2021-04-25 Imm/Inj Nurse, Adc Pob Immunization [place]UST [id number] Univers 14:02:12 14:02:20 Visit Deon Pelaez 350.1.13 .10 [facility] [id number] Fly [place] [id number] Ri dical [facility] [address] BUILDING 2021-04-25 2021-04-25 Outpatient Lexi PELAEZ [facility] [id number] Univers 14:00:00 14:00:00 DEON [facility] 2020-12-21 2020-12-21 Outpatient Lexi HERNANDEZ [facility] [id number] Univers 09:30:00 09:30:00 MOODY [id number] [facility] 2020-11-02 2020-11-02 Outpatient Lexi HERNANDEZ [facility] [id number] Univers 11:30:00 11:30:00 MOODY [id number] [facility] 2020-10-19 2020-10-19 Hvac Lead [facility] UNIVERSIT [id number] Univers 09:35:54 09:53:45 Visit Moody Hernandez [facility] [id number] [id number] [id number] [facility] [address] [place] 2020-10-19 2020-10-19 Outpatient Lexi RHINA [facility] [id number] Univers 09:30:00 09:30:00 MOODY [facility] 2020-10-19 2020-10-19 Outpatient Lexi HERNANDEZ [facility] [id number] Univers 09:30:00 09:30:00 MOODY [id number] [facility] 2020-10-19 2020-10-19 Office ROSIE HernandezIT [id number] Univers 08:56:46 09:26:46 Visit [facility] [id number] [id number] [id number] [facility] [address] [place] 2020-10-11 2020-10-11 Outpatient Lexi BURNS [facility] [id number] Univers 08:30:00 08:30:00 IRINEO [facility] 2020-09-21 2020-09-21 Outpatient Lexi BURNS [facility] [id number] Univers 15:10:00 15:10:00 IRINEO [facility] 2020-09-14 2020-09-14 Outpatient Lexi HERNANDEZ [facility] [id number] Univers 10:30:00 10:30:00 MOODY [id number] [facility] 2020-09-13 2020-09-13 Outpatient Lexi BURNS [facility] [id number] Univers 08:30:00 08:30:00 IRINEO [facility] 2020-08-31 2020-08-31 Outpatient Lexi BURNS [facility] [id number] Univers 15:10:00 15:10:00 IRINEO [facility] 2020-08-312020-08-31 Hvac Lead [facility] UNIVERSIT [id number] Univers 10:03:17 10:09:12 Visit Moody Hernandez [facility] [id number] [place] [id number] [facility] [address] 2020-08-31 2020-08-31 Office Arseniomich ROSIEMARYBETH [id number] Univers 09:21:27 09:59:59 Visit Moody Murillo [facility] [id number] it[place] [id number] [facility] [address] [place] 2020-08-31 2020-08-31 Outpatient R RHINA [facility] [id number] Univers 09:30:00 09:30:00 MOODY [id number] ity [facility] 2020-08-31 2020-08-31 Outpatient Lexi HERNANDEZ [facility] [id number] Univers 09:30:00 09:30:00 [facility] 2020-08-31 2020-08-31 Telephone KELSIE Hernandez [id number] Univers 00:00:00 00:00:00 Moody Murillo [facility] [id number] [place] [id number] [place] [id number] [place] 2020-08-26 2020-08-26 Outpatient R ALIA [facility] [id number] Univers 09:30:00 09:30:00 MARY [id number] ity [facility] 2020-08-26 2020-08-26 Outpatient R ALIA [facility] [id number] Univers 09:30:00 09:30:00 MARY ity [facility] 2020-08-24 2020-08-24 [facility] [id number] Univers 00:00:00 00:00:00 Mary PRIMARY [id number] [place] [id number] [facility] [address] [place] 2020-08-19 2020-08-19 Outpatient Lexi BURRELL [facility] [id number] Univers 11:00:00 11:00:00 MARY [id number] ity of [facility] 2020-08-19 2020-08-19 Outpatient Lexi BURRELL [facility] [id number] Univers 11:00:00 11:00:00 MARY ity [facility] 2020-08-10 2020-08-10 Hvac Lead [facility] UNIVERSIT [id number] Univers 10:29:25 10:54:23 Visit Moody Hernandez [employer] [facility] [id number] [place] [id number] [facility] [address] [place] 2020-08-10 2020-08-10 Office KELSIE Hernandez [id number] Univers 09:17:52 10:15:44 Visit Moody [employer] 350.1.13.10 it[place] [id number] [facility] [address] [place] 2020-08-10 2020-08-10 Outpatient Lexi HERNANDEZ [facility] [id number] Univers 09:00:00 09:00:00 MOODY [id number] ity [facility] 2020-08-10 2020-08-10 Outpatient Lexi HERNANDEZ [facility] [id number] Univers 09:00:00 09:00:00 MOODY ity [facility] 2020-08-09 2020-08-09 Outpatient Lexi BURRELL [facility] [id number] Univers 10:15:00 10:15:00 MARY [id number] ity [facility] 2020-08-09 2020-08-09 Outpatient Lexi BURRELL [facility] [id number] Univers 10:15:00 10:15:00 MARY ity [facility] 2020-08-09 2020-08-09 Office Alia RUST [id number] Univers 10:06:29 10:07:40 Visit Mary PRIMARY [id number] [place] [id number] Ri dical [address] 2020-08-09 2020-08-09 Orders Doctor IRENE 1.2.840.114 [id number] Univers 00:00:00 00:00:00 Only Unassigned, SANJAY 350.1.13.10 ity of [place] [facility] 4.2.7.2.686 Marc as [id number] [facility] [address] 2020-08-05 2020-08-05 Transition Grady Doughertyoralia 1.2.840.114 [id number] Univers 00:00:00 00:00:00 of Care Sara Sauer 350.1.13.10 it [place] of [place] [id number] [facility] [address] 2020-07-14 2020-08-04 Hospital AshLavinia [id number] Univers 10:17:00 18:24:00 Encounter Inga Gilbert 350.1.13 .10 ity of [facility] 4.2.7.2.686 [place] Willis Russ [id number] [address] Results Test Description Test Time Test Comments Results Result Comments Source POCT GLUCOSE (AUTOMATED) 2020-08-04 23:41:00 Test Item Value Reference Range Interpretation Comme nts POCT GLU (test code = 7992234108) 234 mg/dL 70-110 H Lab Interpretation (test code = 81157-6) [facility]normal [facility] [id number] 21:00:00 Test Item Value Reference Range Interpretation Comments NA URINE (test code = 6129651009) 82 mmol/L [facility] URINE [id number] 21:00:00 Test Item Value Reference Range Interpretation Comments CREAT U (test code = 8116119678) 78.8 mg/dL [facility] CREAT RATIO URINE [id number] 21:00:00 Test Item Value Reference Range Interpretation Comments T. PROT U (test code = 2888-6) 61 mg/dL CREAT U (test code = 5800764337) 78.8 mg/dL Protein/Creatinine Ratio Urine 0.0-2.0 (test code = 4491818194) [facility] GLUCOSE (AUTOMATED)2020-08-04 19:39:00 Test Item Value Reference Range Interpretation Comments POCT GLU (test code = 9925122707) 155 mg/dL 70-110 H Lab Interpretation (test code = Abnormal 27446-6) [facility] GLUCOSE (AUTOMATED)2020-08-04 15:14:00 Test Item Value Reference Range Interpretation Comments POCT GLU (test code = 9712701112) 106 mg/dL 70-110 Lab Interpretation (test code = Normal 55374-7) [facility] [id number] 14:07:00 Test Item Value Reference Range Interpretation Comments FUNGUS CULTURE Scant (< 1+) growth Previo us (test code = Trichophyton rubrum prelimin taco 580-1) verified result was Mold on 07/21/19 21 at 0932 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74 mg/dL 0.6-1.25 H 1454928696) CALCIUM (test code = 9.1 mg/dL 8.6-10.6 1198584491) eGFR Calculation mL/min/1.73m2 (Non-) (test code = 6002104148) eGFR Calculation mL/min/1.73m2 () (test code = 1634432416) DOMENIC (test code = DOMENIC) Association of Glomerular Filtration Rate (GFR) and Staging of Kidney Disease* + --+ --+ ------+| GFR (mL/min/1.73 m2) ?| With Kidney Damage ?| ?Without Kidney Damage+ --------+ --------+ +| ?>90 ?| ?Stage one ?| ? Normal ?+ ---+ ---+ -------+| ?60-89 ?| ?Stage two ?| ? Decreased GFR ? + --+ --+ ------+| ?30-59 ?| ?Stage three ?| ? Stage three ? + --+ --+ ------+| ?15-29 ?| ?Stage four ? | ? Stage four ?+ ---+ ---+ -------+| ?<15 (or dialysis) ? ?| ?Stage five ? | ? Stage five ?+ ---+ ---+ -------+ *Each stage assumes the associated GFR level has been in effect for at least three months. ?Stages 1 to 5, with or without kidney disease, indicate chronic kidney disease. Notes: Determination of stages one and two (with eGFR >59mL/min/1.73 m2) requires estimation of kidney damage for at least three months as defined by structural or functional abnormalities of the kidney, manifested by either:Pathological abnormalities or Markers of kidney damage (including abnormalities in the composition of the blood or urine or abnormalities in imaging tests). Lab Interpretation Abnormal (test code = 61309-5) [id number] 11:16:00 Test Item Value Reference Range Interpretation Comments MAGNESIUM (test code = 3844505258) 2.0 mg/dL 1.7-2.4 Lab Interpretation (test code = Normal 55003-2) [facility] WITHOUT [id number] 11:08:00 Test Item Value Reference Range Interpretation Comments WBC (test code = 6690-2) See_Comment [A utomated message] The system [employer] generated this result transmit rony reference range : 4.20 - 10.70 10*3/?L. The reference range was not used to interpret this result as normal/abnormal . RBC (test code = 789-8) See_Comment L [Au tomated message] The system [employer] generated this result transmit rony reference range : 4.26 - 5.52 10* 6/?L. The reference r yen was not used to interpret this result as normal/abnormal . HGB (test code = 718-7) 10.4 g/dL 12.2-16.4 L HCT (test code = 4544-3) 31.5 % 38.4-49.3 L MCH (test code = 785-6) 29.3 pg 26.1-32.7 MCV (test code = 787-2) 88.7 fL 81.7-95.6 MCHC (test code = 786-4) 33.0 g/dL 31.2-35 PLT (test code = 777-3) See_Comment H [Au tomated message] The system [facility] generated this result transmit rony reference range : 150 - 328 10*3/?L. The reference range was not used to interpret this result as normal/abnormal . MPV (test code = 9.9 fL 9.8-13 32087-4) RDW-CV (test code = 12.6 % 12.1-15.4 788-0) RDW-SD (test code = 40.8 fL 38.5-51.6 46972-7) NRBC x10^3 (test code = <0.01 See_Comment [Au tomated message] [id number]) The system [employer] generated this result transmit rony reference range : 10*3/?L. The reference range was not used to interpret this result as normal/abnormal . NRBC/100 WBC (test code See_Comment [Au tomated message] = 2211293956) The system [facility] generated this result transmit rony reference range : 0.0 - 10.0 /100 WBC s. The reference r yen was not used to interpret this result as normal/abnormal . IPF % (test code = 4971461434) Lab Interpretation (test Abnormal code = 96056-5) [facility] METABOLIC PANEL (NA, K, CL, CO2, GLUCOSE, BUN, CREATININE, [place])2020-08-04 04:47:00 Test Item Value Reference Range Interpretation Comments NA (test code = 132 mmol/L 135-145 L 9748428340) K (test code = 4.3 mmol/L 3.5-5 9057764462) CL (test code = 99 mmol/L 98-108 7132558788) CO2 TOTAL (test code = 26 mmol/L 23-31 0988133903) AGAP (test code = 2-16 4427773452) BUN (test code = 31 mg/dL 7-23 H 3409037295) GLUCOSE (test code = 185 mg/dL 70-110 H 9498875121) CREATININE (test code = 1.76 mg/dL 0.6-1.25 H 6749583679) CALCIUM (test code = 8.7 mg/dL 8.6-10.6 1467417735) eGFR Calculation mL/min/1.73m2 (Non-) (test code = 6826929771) eGFR Calculation mL/min/1.73m2 () (test code = 6992516520) DOMENIC (test code = DOMENIC) Association of Glomerular Filtration Rate (GFR) and Staging of Kidney Disease* + --+ --+ ------+| GFR (mL/min/1.73 m2) ?| With Kidney Damage ?| ?Without Kidney Damage+ --------+ --------+ +| ?>90 ?| ?Stage one ?| ? Normal ?+ ---+ ---+ -------+| ?60-89 ?| ?Stage two ?| ? Decreased GFR ? + --+ --+ ------+| ?30-59 ?| ?Stage three ?| ? Stage three ? + --+ --+ ------+| ?15-29 ?| ?Stage four ? | ? Stage four ?+ ---+ ---+ -------+| ?<15 (or dialysis) ? ?| ?Stage five ? | ? Stage five ?+ ---+ ---+ -------+ *Each stage assumes the associated GFR level has been in effect for at least three months. ?Stages 1 to 5, with or without kidney disease, indicate chronic kidney disease. Notes: Determination of stages one and two (with eGFR >59mL/min/1.73 m2) requires estimation of kidney damage for at least three months as defined by structural or functional abnormalities of the kidney, manifested by either:Pathological abnormalities or Markers of kidney damage (including abnormalities in the composition of the blood or urine or abnormalities in imaging tests). Lab Interpretation Abnormal (test code = 56391-4) [facility] GLUCOSE (AUTOMATED)2020-08-04 03:11:00 Test Item Value Reference Range Interpretation Comments POCT GLU (test code = 5063992560) 193 mg/dL 70-110 H Lab Interpretation (test code = Abnormal 41163-8) [facility] GLUCOSE (AUTOMATED)2020-08-03 23:06:00 Test Item Value Reference Range Interpretation Comments POCT GLU (test code = 6191302721) 211 mg/dL 70-110 H Lab Interpretation (test code = Abnormal 97149-5) [facility] GLUCOSE (AUTOMATED)2020-08-03 19:11:00 Test Item Value Reference Range Interpretation Comments POCT GLU (test code = 5965464860) 182 mg/dL 70-110 H Lab Interpretation (test code = Abnormal 40338-0) [facility] GLUCOSE (AUTOMATED)2020-08-03 16:10:00 Test Item Value Reference Range Interpretation Comments POCT GLU (test code = 9595646448) 151 mg/dL 70-110 H Lab Interpretation (test code = Abnormal 22775-0) [facility] [id number] 05:03:00COVID DMT InterpretationInterpretation/Recommendations: Molecular NAAT Tests for Active Infection with the SARS-CoV-2 Virus: The patient has currently tested negative for the SARS-CoV-2 virus that causes COVID-19 illness. This most likely indicates that the patient does not have an active infection with the SARS-CoV-2 virus. However, infection is not completely ruled out as the false negative rate for molecular NAAT testing using a nasopharyngeal sample can be up to 30%, mostly dependent on the timing of sample collection in relation to illness onset and any deficiencies in sampling techniques. If the patient has symptoms concerning for COVID-19 illness, a repeat NAAT test (PCR, Rapid ID Now, etc.) should be performed, at which time the SARS-CoV-2 virus - if present - may have reached a detectable viral load (usually peaking by the end of the first week of symptoms). Tests for IgM and/or IgGAntibodies to the SARS-CoV-2 Virus: If the patient develops COVID-19 illness in the future, testingfor IgM and IgG antibodies approximately 3 weeks after illness onset will likely indicate if the patient has produced antibodies to the SARS-CoV-2 virus. However, some patients may take longer to develop detectable antibodies, while some patients who were infected with SARS-CoV-2 may never develop antibodies. While antibodies to SARS-CoV-2 may provide some degree of immunity, at this time the strength and duration of the antibody response is unknown. Interpretation Result Comments:These interpretation comments are based uponall COVID-19 testing the patient has had at [facility], including molecular NAAT testing (more commonly known as PCR testing and Rapid ID Now testing) and antibody testing. It does not take into account any testing that a patient has had outside of the [facility] medical record. [facility] SERVICESCOVID Res [id number] Rapid ID NOW (no units) ? ? Date ? Value ? 08/02/2020 ? Not Detected ? ? ? 07/26/2020 ? Not Detected ? ? ? 07/21/2020 ? Not Detected ? ? ? 07/14/2020 ? Not Detected ? [facility]2020-08-03 03:28:00 Test Item Value Reference Range Interpretation Comments POCT GLU (test code = 5743228992) 304 mg/dL 70-110 H Lab Interpretation (test code = Abnormal 96720-2) [facility] GLUCOSE (AUTOMATED)2020-08-02 23:08:00 Test Item Value Reference Range Interpretation Comments POCT GLU (test code = 2723641098) 123 mg/dL 70-110 H Lab Interpretation (test code = Abnormal 11990-1) [facility] GLUCOSE (AUTOMATED)2020-08-02 15:36:00 Test Item Value Reference Range Interpretation Comments POCT GLU (test code = 2257765561) 178 mg/dL 70-110 H Lab Interpretation (test code = Abnormal 41014-8) [facility] [id number] 14:20:00 Test Item Value Reference Range Interpretation Comments FUNGUS CULTURE (test Scant (< 1+) growth code = 580-1) Trichophyton rubrum Fungus Direct Smear No Fungi seen on direct (test code = prep 89604-3) [facility]ID NOW RAPID TESTING)2020-08-02 10:39:00 Test Item Value Reference Range Interpretation Comments SARS-CoV-2 Rapid ID NOW Not Detected Not Detected (test code = 41357-7) DOMENIC (test code = DOMENIC) ID NOW COVID-19 Assay is an isothermal nucleic acid amplification test intended for the qualitative detection of nucleic acid from SARS-CoV-2 viral RNA in nasopharyngeal (PRESIDENT [employer]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 It is used under Emergency Use Authorization (EUA) by FDA. The limit of detection (LOD) of the assay is 125 Genome Equivalents/mL. A positive result is indicative of the presence of SARS-CoV-2 RNA. ?Clinical correlation with patient history and other diagnostic information is necessary to determine patient infection status. A negative (Not Detected) result does not preclude SARS-CoV-2 infection. In patients with clinical symptoms and other tests that are consistent with SARS-CoV-2 infection, negative results should be treated as presumptive negative and a new specimen should be tested with alternative PCR molecular test. Invalid: Please collect a new specimen for repeat patient testing if clinically indicated. Lab Interpretation Normal (test code = 47932-8) [facility] GLUCOSE (AUTOMATED)2020-08-02 03:26:00 Test Item Value Reference Range Interpretation Comments POCT GLU (test code = 0605641904) 233 mg/dL 70-110 H Lab Interpretation (test code = Abnormal 18637-2) [facility] GLUCOSE (AUTOMATED)2020-08-01 23:29:00 Test Item Value Reference Range Interpretation Comments POCT GLU (test code = 0078766668) 217 mg/dL 70-110 H Lab Interpretation (test code = Abnormal 23958-1) [facility] - Draw immediately prior to the 4TH dose, but, no more than 60 minutes before the NEXT dose. 2020-08-01 21:47:00 Test Item Value Reference Range Interpretation Comments VANCO TROUGH (test code 12.2 ug/mL 10-20 = 8195462169) DOMENIC (test code = DOMENIC) Toxic Range: ?>20 ug/mL 15-20 ug/mL is recommended for severe infection or when Vancomycin MARK ANTHONY is greater than or equal to 2. Lab Interpretation (test Normal code = 96262-4) [facility] GLUCOSE (AUTOMATED)2020-08-01 19:21:00 Test Item Value Reference Range Interpretation Comments POCT GLU (test code = 9775212347) 288 mg/dL 70-110 H Lab Interpretation (test code = Abnormal 59726-2) [facility] GLUCOSE (AUTOMATED)2020-08-01 15:04:00 Test Item Value Reference Range Interpretation Comments POCT GLU (test code = 9478912508) 173 mg/dL 70-110 H Lab Interpretation (test code = Abnormal 38934-2) [facility] (NA, K, CL, CO2, GLUCOSE, BUN, CREATININE, [place])2020-08-01 11:58:00 Test Item Value Reference Range Interpretation Comments NA (test code = 134 mmol/L 135-145 L 0059843808) K (test code = 4.6 mmol/L 3.5-5 7013199089) CL (test code = 99 mmol/L 98-108 2970458220) CO2 TOTAL (test code = 25 mmol/L 23-31 9861575341) AGAP (test code = 2-16 5448329562) BUN (test code = 39 mg/dL 7-23 H 4630517086) GLUCOSE (test code = 163 mg/dL 70-110 H 2012021154) CREATININE (test code = 2.04 mg/dL 0.6-1.25 H 3456791555) CALCIUM (test code = 9.2 mg/dL 8.6-10.6 8758126088) eGFR Calculation mL/min/1.73m2 (Non-) (test code = 4891788918) eGFR Calculation mL/min/1.73m2 () (test code = 6223586734) DOMENIC (test code = DOMENIC) Association of Glomerular Filtration Rate (GFR) and Staging of Kidney Disease* + --+ --+ ------+| GFR (mL/min/1.73 m2) ?| With Kidney Damage ?| ?Without Kidney Damage+ --------+ --------+ +| ?>90 ?| ?Stage one ?| ? Normal ?+ ---+ ---+ -------+| ?60-89 ?| ?Stage two ?| ? Decreased GFR ? + --+ --+ ------+| ?30-59 ?| ?Stage three ?| ? Stage three ? + --+ --+ ------+| ?15-29 ?| ?Stage four ? | ? Stage four ?+ ---+ ---+ -------+| ?<15 (or dialysis) ? ?| ?Stage five ? | ? Stage five ?+ ---+ ---+ -------+ *Each stage assumes the associated GFR level has been in effect for at least three months. ?Stages 1 to 5, with or without kidney disease, indicate chronic kidney disease. Notes: Determination of stages one and two (with eGFR >59mL/min/1.73 m2) requires estimation of kidney damage for at least three months as defined by structural or functional abnormalities of the kidney, manifested by either:Pathological abnormalities or Markers of kidney damage (including abnormalities in the composition of the blood or urine or abnormalities in imaging tests). Lab Interpretation Abnormal (test code = 47289-6) [facility] [id number] 11:37:00 Test Item Value Reference Range Interpretation Comments WBC (test code = 6690-2) See_Comment [A utomated message] The system [employer] generated this result transmit rony reference range : 4.20 - 10.70 10*3/?L. The reference range was not used to interpret this result as normal/abnormal . RBC (test code = 789-8) See_Comment L [Au tomated message] The system [employer] generated this result transmit rony reference range : 4.26 - 5.52 10* 6/?L. The reference r yen was not used to interpret this result as normal/abnormal . HGB (test code = 718-7) 11.7 g/dL 12.2-16.4 L HCT (test code = 4544-3) 35.4 % 38.4-49.3 L MCH (test code = 785-6) 29.0 pg 26.1-32.7 MCV (test code = 787-2) 87.6 fL 81.7-95.6 MCHC (test code = 786-4) 33.1 g/dL 31.2-35 PLT (test code = 777-3) See_Comment H [Au tomated message] The system [employer] generated this result transmit rony reference range : 150 - 328 10*3/?L. The reference range was not used to interpret this result as normal/abnormal . MPV (test code = 8.4 fL 9.8-13 L 57880-8) RDW-CV (test code = 12.3 % 12.1-15.4 788-0) RDW-SD (test code = 39.6 fL 38.5-51.6 37398-9) NRBC x10^3 (test code = <0.01 See_Comment [Au tomated message] 8564334549) The system [employer] generated this result transmit rony reference range : 10*3/?L. The reference range was not used to interpret this result as normal/abnormal . NRBC/100 WBC (test code See_Comment [Au tomated message] = 3997905411) The system [facility] generated this result transmit rony reference range : 0.0 - 10.0 /100 WBC s. The reference r yen was not used to interpret this result as normal/abnormal . IPF % (test code = 6550779903) Lab Interpretation (test Abnormal code = 65765-2) [facility] GLUCOSE (AUTOMATED)2020-08-01 02:39:00 Test Item Value Reference Range Interpretation Comments POCT GLU (test code = 7434091149) 192 mg/dL 70-110 H Lab Interpretation (test code = Abnormal 30984-9) [facility] GLUCOSE (AUTOMATED)2020-07-31 23:39:00 Test Item Value Reference Range Interpretation Comments POCT GLU (test code = 6168956499) 216 mg/dL 70-110 H Lab Interpretation (test code = Abnormal 33679-2) [facility] GLUCOSE (AUTOMATED)2020-07-31 19:07:00 Test Item Value Reference Range Interpretation Comments POCT GLU (test code = 5037485738) 197 mg/dL 70-110 H Lab Interpretation (test code = Abnormal 49657-0) [facility] GLUCOSE (AUTOMATED)2020-07-31 15:31:00 Test Item Value Reference Range Interpretation Comments POCT GLU (test code = 1756298430) 131 mg/dL 70-110 H Lab Interpretation (test code = Abnormal 68110-5) [facility] [id number] 12:10:00 Test Item Value Reference Range Interpretation Comments WBC (test code = 6690-2) See_Comment [A utomated message] The system [employer] generated this result transmit rony reference range : 4.20 - 10.70 10*3/?L. The reference range was not used to interpret this result as normal/abnormal . RBC (test code = 789-8) See_Comment L [Au tomated message] The system [employer] generated this result transmit rony reference range : 4.26 - 5.52 10* 6/?L. The reference r yen was not used to interpret this result as normal/abnormal . HGB (test code = 718-7) 11.6 g/dL 12.2-16.4 L HCT (test code = 4544-3) 34.7 % 38.4-49.3 L MCH (test code = 785-6) 29.6 pg 26.1-32.7 MCV (test code = 787-2) 88.5 fL 81.7-95.6 MCHC (test code = 786-4) 33.4 g/dL 31.2-35 PLT (test code = 777-3) See_Comment H [Au tomated message] The system [employer] generated this result transmit rony reference range : 150 - 328 10*3/?L. The reference range was not used to interpret this result as normal/abnormal . MPV (test code = 9.1 fL 9.8-13 L 02284-0) RDW-CV (test code = 12.4 % 12.1-15.4 788-0) RDW-SD (test code = 40.0 fL 38.5-51.6 12033-9) NRBC x10^3 (test code = <0.01 See_Comment [Au tomated message] 5971526502) The system [employer] generated this result transmit rony reference range : 10*3/?L. The reference range was not used to interpret this result as normal/abnormal . NRBC/100 WBC (test code See_Comment [Au tomated message] = 6024442882) The system [employer] generated this result transmit rony reference range : 0.0 - 10.0 /100 WBC s. The reference r yen was not used to interpret this result as normal/abnormal . IPF % (test code = 9522925687) Lab Interpretation (test Abnormal code = 47555-1) [facility] METABOLIC PANEL (NA, K, CL, CO2, GLUCOSE, BUN, CREATININE, [place])2020-07-31 11:50:00 Test Item Value Reference Range Interpretation Comments NA (test code = 134 mmol/L 135-145 L 9675590145) K (test code = 4.4 mmol/L 3.5-5 9173634877) CL (test code = 99 mmol/L 98-108 8913852620) CO2 TOTAL (test code = 26 mmol/L 23-31 4995428986) AGAP (test code = 2-16 6407564612) BUN (test code = 32 mg/dL 7-23 H 5730907099) GLUCOSE (test code = 119 mg/dL 70-110 H 6629098049) CREATININE (test code = 1.69 mg/dL 0.6-1.25 H 1866326247) CALCIUM (test code = 9.3 mg/dL 8.6-10.6 2895301390) eGFR Calculation mL/min/1.73m2 (Non-) (test code = 2160991226) eGFR Calculation mL/min/1.73m2 () (test code = 3060431832) DOMENIC (test code = DOMENIC) Association of Glomerular Filtration Rate (GFR) and Staging of Kidney Disease* + --+ --+ ------+| GFR (mL/min/1.73 m2) ?| With Kidney Damage ?| ?Without Kidney Damage+ --------+ --------+ +| ?>90 ?| ?Stage one ?| ? Normal ?+ ---+ ---+ -------+| ?60-89 ?| ?Stage two ?| ? Decreased GFR ? + --+ --+ ------+| ?30-59 ?| ?Stage three ?| ? Stage three ? + --+ --+ ------+| ?15-29 ?| ?Stage four ? | ? Stage four ?+ ---+ ---+ -------+| ?<15 (or dialysis) ? ?| ?Stage five ? | ? Stage five ?+ ---+ ---+ -------+ *Each stage assumes the associated GFR level has been in effect for at least three months. ?Stages 1 to 5, with or without kidney disease, indicate chronic kidney disease. Notes: Determination of stages one and two (with eGFR >59mL/min/1.73 m2) requires estimation of kidney damage for at least three months as defined by structural or functional abnormalities of the kidney, manifested by either:Pathological abnormalities or Markers of kidney damage (including abnormalities in the composition of the blood or urine or abnormalities in imaging tests). Lab Interpretation Abnormal (test code = 96070-5) [facility] GLUCOSE (AUTOMATED)2020-07-31 05:19:00 Test Item Value Reference Range Interpretation Comments POCT GLU (test code = 3766034557) 213 mg/dL 70-110 H Lab Interpretation (test code = Abnormal 10977-7) [facility] GLUCOSE (AUTOMATED)2020-07-31 02:45:00 Test Item Value Reference Range Interpretation Comments POCT GLU (test code = 9748287437) 313 mg/dL 70-110 H Lab Interpretation (test code = Abnormal 17992-4) [facility] GLUCOSE (AUTOMATED)2020-07-30 23:45:00 Test Item Value Reference Range Interpretation Comments POCT GLU (test code = 6429765998) 174 mg/dL 70-110 H Lab Interpretation (test code = Abnormal 97823-8) [facility] GLUCOSE (AUTOMATED)2020-07-30 19:13:00 Test Item Value Reference Range Interpretation Comments POCT GLU (test code = 5350999635) 177 mg/dL 70-110 H Lab Interpretation (test code = Abnormal 53269-7) [facility] [id number] 11:59:42 Forefoot plantar ulceration/gas and/or foreign debris with communicatingdorsal forefoot abscess partially surrounding the extensor tendons. Osteomyelitis involving the hallux sesamoid metatarsals, second metatarsalhead and second phalanx with possible involvement of the third metatarsalhead. EXAM: MRI LEFT FOOT WITH AND WITHOUT IV CONTRAST HISTORY: Osteomyelitis, foot COMPARISON: Plain films dated 07/15/2020 TECHNIQUE AND FINDINGS: 1.5T multiplanar multiweighted MR imaging of the left foot was performedwith utilization of 20 cc IV ProHance. T2 bone marrow signal increase, T1 signal decrease with post gadoliniumenhancement involves the hallux metatarsal sesamoids, second metatarsalhead and adjacent second digit proximal phalanx and middle phalanx. Lessextensive marrow signal change is seen aboutthe plantar third metatarsalhead. A signal void is seen within the first interdigital space which mayrelate to a drain or foreign body.Susceptibility artifact secondary to gasor foreign body is seen atthe level of the dorsal distal great toe.Rim-enhancing, hyperintense T2 signal fluid and mottled signalvoids/dressing ?extend along the plantar margin of the forefoot at thelevel of the second MTP joint and second metatarsal with dorsal andproximal forefoot extension along the second through fifth metatarsals.There is also extension of this process around the great toe. Thiscollection partially surrounds the extensor tendons of the first throughfifth rays. There is otherwise diffuse subcutaneous andintramuscular Q7dewfpq increase with enhancement. [facility], Radiant Results Inft User - 07/30/2020 6:00 AM CSTEXAM:MRI LEFT FOOT WITH AND WITHOUT IV CONTRAST HISTORY: Osteomyelitis, foot COMPARISON: Plain films dated 07/15/2020TECHNIQUE AND FINDINGS:1.5T multiplanar multiweighted MR imaging of the left foot was performedwith utilization of 20 cc IV ProHance.T2 bone marrow signal increase, T1 signal decrease with post gadoliniumenhancement involves the hallux metatarsal sesamoids, second metatarsalhead and adjacent second digit proximal phalanx and middle phalanx. Lessextensive marrow signal change is seen about the plantar third metatarsalhead. A signal void is seen within the first interdigital spacewhich mayrelate to a drain or foreign body.Susceptibility artifact secondary to gasor foreign body is seen at the level of the dorsal distal great toe.Rim-enhancing, hyperintense T2 signal fluid and mottled signalvoids/dressing extend along the plantar margin of the forefoot at thelevel of the secondMTP joint and second metatarsal with dorsal andproximal forefoot extension along the second through fifth metatarsals.There is also extension of this process around the great toe. Thiscollection partially surrounds the extensor tendons of the first throughfifth rays. There is otherwise diffuse subcutaneous and intramuscular V0elldha increase with enhancement.IMPRESSIONForefoot plantar ulceration/gas and/or foreign debris with communicatingdorsal forefoot abscess partially surrounding the extensor ten dons.Osteomyelitis involving the hallux sesamoid metatarsals, second metatarsalhead and second phalanx with possible involvement of the third metatarsalhead.[facility] (NA, K, CL, CO2, GLUCOSE, BUN, CREATININE, [place])2020-07-30 10:56:00 Test Item Value Reference Range Interpretation Comments NA (test code = 132 mmol/L 135-145 L 0005638063) K (test code = 4.6 mmol/L 3.5-5 4493192170) CL (test code = 99 mmol/L 98-108 2430383386) CO2 TOTAL (test code = 27 mmol/L 23-31 1563993898) AGAP (test code = 2-16 7887291934) BUN (test code = 28 mg/dL 7-23 H 0506325997) GLUCOSE (test code = 142 mg/dL 70-110 H 2850322013) CREATININE (test code = 1.60 mg/dL 0.6-1.25 H 5528364424) CALCIUM (test code = 9.1 mg/dL 8.6-10.6 1607667300) eGFR Calculation mL/min/1.73m2 (Non-) (test code = 1621329901) eGFR Calculation mL/min/1.73m2 () (test code = 6088808921) DOMENIC (test code = DOMENIC) Association of Glomerular Filtration Rate (GFR) and Staging of Kidney Disease* + --+ --+ ------+| GFR (mL/min/1.73 m2) ?| With Kidney Damage ?| ?Without Kidney Damage+ --------+ --------+ +| ?>90 ?| ?Stage one ?| ? Normal ?+ ---+ ---+ -------+| ?60-89 ?| ?Stage two ?| ? Decreased GFR ? + --+ --+ ------+| ?30-59 ?| ?Stage three ?| ? Stage three ? + --+ --+ ------+| ?15-29 ?| ?Stage four ? | ? Stage four ?+ ---+ ---+ -------+| ?<15 (or dialysis) ? ?| ?Stage five ? | ? Stage five ?+ ---+ ---+ -------+ *Each stage assumes the associated GFR level has been in effect for at least three months. ?Stages 1 to 5, with or without kidney disease, indicate chronic kidney disease. Notes: Determination of stages one and two (with eGFR >59mL/min/1.73 m2) requires estimation of kidney damage for at least three months as defined by structural or functional abnormalities of the kidney, manifested by either:Pathological abnormalities or Markers of kidney damage (including abnormalities in the composition of the blood or urine or abnormalities in imaging tests). Lab Interpretation Abnormal (test code = 19336-0) [facility] [id number] 10:46:00 Test Item Value Reference Range Interpretation Comments WBC (test code = 6690-2) See_Comment [A utomated message] The system [employer] generated this result transmit rony reference range : 4.20 - 10.70 10*3/?L. The reference range was not used to interpret this result as normal/abnormal . RBC (test code = 789-8) See_Comment L [Au tomated message] The system [employer] generated this result transmit rony reference range : 4.26 - 5.52 10* 6/?L. The reference r yen was not used to interpret this result as normal/abnormal . HGB (test code = 718-7) 11.2 g/dL 12.2-16.4 L HCT (test code = 4544-3) 34.0 % 38.4-49.3 L MCH (test code = 785-6) 29.3 pg 26.1-32.7 MCV (test code = 787-2) 89.0 fL 81.7-95.6 MCHC (test code = 786-4) 32.9 g/dL 31.2-35 PLT (test code = 777-3) See_Comment H [Au tomated message] The system [employer] generated this result transmit rony reference range : 150 - 328 10*3/?L. The reference range was not used to interpret this result as normal/abnormal . MPV (test code = 8.9 fL 9.8-13 L 56274-1) RDW-CV (test code = 12.2 % 12.1-15.4 788-0) RDW-SD (test code = 39.3 fL 38.5-51.6 22328-7) NRBC x10^3 (test code = <0.01 See_Comment [Au tomated message] 1300852817) The system [employer] generated this result transmit rony reference range : 10*3/?L. The reference range was not used to interpret this result as normal/abnormal . NRBC/100 WBC (test code See_Comment [Au tomated message] = [id number]) The system [employer] generated this result transmit rony reference range : 0.0 - 10.0 /100 WBC s. The reference r yen was not used to interpret this result as normal/abnormal . IPF % (test code = 0888006797) Lab Interpretation (test Abnormal code = 05021-7) [facility] GLUCOSE (AUTOMATED)2020-07-30 03:57:00 Test Item Value Reference Range Interpretation Comments POCT GLU (test code = 0442746368) 182 mg/dL 70-110 H Lab Interpretation (test code = Abnormal 52465-6) [facility] GLUCOSE (AUTOMATED)2020-07-29 22:55:00 Test Item Value Reference Range Interpretation Comments POCT GLU (test code = 3823907873) 194 mg/dL 70-110 H Lab Interpretation (test code = Abnormal 31640-0) [facility] GLUCOSE (AUTOMATED)2020-07-29 18:23:00 Test Item Value Reference Range Interpretation Comments POCT GLU (test code = 3545123270) 189 mg/dL 70-110 H Lab Interpretation (test code = Abnormal 40325-0) [facility] GLUCOSE (AUTOMATED)2020-07-29 14:47:00 Test Item Value Reference Range Interpretation Comments POCT GLU (test code = 4084874058) 132 mg/dL 70-110 H Lab Interpretation (test code = Abnormal 88704-1) [id number] 11:19:53 No acute osseous abnormalities. The patient is safe for MR imaging. EXAM: XR BONE SURVEY HISTORY: MRI clearance COMPARISON: None FINDINGS: Limited imaging of the axial and appendicular skeleton demonstratessurgical clips over the right lower quadrant. Atelectasis versus earlyinfiltrate is seen within the left lower lung. Screw and plate fixationhardware secure a healing/healed proximal right tibial metaphyseal fracturewith chronic osseous fragmentation of the right patella which is laterallysubluxed. Moderate arthritic changes involve both knees, more extensive onthe left. 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 Marked swelling of thebilateral feet is seen. Diffuse vascular calcifications are present. Mildarthritic changes seen at the acromioclavicular joints. [facility], Radiant Results Inft User - 07/29/2020 5:20 AM CSTEXAM:XR BONE SURVEYHISTORY:MRI clearance COMPARISON:NoneFINDINGS: Limited imaging of the axial and appendicular skeleton demonstratessurgical clips over the right lower quadrant. Atelectasis versus earlyinfiltrate is seen within the left lower lung. Screw and plate fixationhardware secure a healing/healed proximal right tibial metaphyseal fracturewith chronic osseous fragmentation of the right patella which is laterallysubluxed. Moderate arthritic changes involve both knees, more extensive onthe left. 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 Marked swelling of thebilateral feet is seen. Diffuse vascular calcifications are present. Mildarthritic changes seen at the acromioclavicular joints.IMPRESSIONNo acute osseous abnormalities.The patient is safe for MR imaging.[facility] (NA, K, CL, CO2, GLUCOSE, BUN, CREATININE, CA)2020-07-29 11:12:00 Test Item Value Reference Range Interpretation Comments NA (test code = 133 mmol/L 135-145 L 5751103164) K (test code = 4.6 mmol/L 3.5-5 5139261696) CL (test code = 99 mmol/L 98-108 7787253567) CO2 TOTAL (test code = 25 mmol/L 23-31 6579313624) AGAP (test code = 2-16 3201617328) BUN (test code = 26 mg/dL 7-23 H 3378938189) GLUCOSE (test code = 148 mg/dL 70-110 H 0966435670) CREATININE (test code = 1.65 mg/dL 0.6-1.25 H 9382125043) CALCIUM (test code = 9.1 mg/dL 8.6-10.6 9294389998) eGFR Calculation mL/min/1.73m2 (Non-) (test code = 1656431555) eGFR Calculation mL/min/1.73m2 () (test code = 6468800918) DOMENIC (test code = DOMENIC) Association of Glomerular Filtration Rate (GFR) and Staging of Kidney Disease* + --+ --+ ------+| GFR (mL/min/1.73 m2) ?| With Kidney Damage ?| ?Without Kidney Damage+ --------+ --------+ +| ?>90 ?| ?Stage one ?| ? Normal ?+ ---+ ---+ -------+| ?60-89 ?| ?Stage two ?| ? Decreased GFR ? + --+ --+ ------+| ?30-59 ?| ?Stage three ?| ? Stage three ? + --+ --+ ------+| ?15-29 ?| ?Stage four ? | ? Stage four ?+ ---+ ---+ -------+| ?<15 (or dialysis) ? ?| ?Stage five ? | ? Stage five ?+ ---+ ---+ -------+ *Each stage assumes the associated GFR level has been in effect for at least three months. ?Stages 1 to 5, with or without kidney disease, indicate chronic kidney disease. Notes: Determination of stages one and two (with eGFR >59mL/min/1.73 m2) requires estimation of kidney damage for at least three months as defined by structural or functional abnormalities of the kidney, manifested by either:Pathological abnormalities or Markers of kidney damage (including abnormalities in the composition of the blood or urine or abnormalities in imaging tests). Lab Interpretation Abnormal (test code = 89306-8) [facility] WITHOUT [id number] 10:45:00 Test Item Value Reference Range Interpretation Comments WBC (test code = 6690-2) See_Comment H [A utomated message] The system [employer] generated this result transmit rony reference range : 4.20 - 10.70 10*3/?L. The reference range was not used to interpret this result as normal/abnormal . RBC (test code = 789-8) See_Comment L [Au tomated message] The system [employer] generated this result transmit rony reference range : 4.26 - 5.52 10* 6/?L. The reference r yen was not used to interpret this result as normal/abnormal . HGB (test code = 718-7) 11.8 g/dL 12.2-16.4 L HCT (test code = 4544-3) 35.0 % 38.4-49.3 L MCH (test code = 785-6) 30.0 pg 26.1-32.7 MCV (test code = 787-2) 89.1 fL 81.7-95.6 MCHC (test code = 786-4) 33.7 g/dL 31.2-35 PLT (test code = 777-3) See_Comment H [Au tomated message] The system [employer] generated this result transmit rony reference range : 150 - 328 10*3/?L. The reference range was not used to interpret this result as normal/abnormal . MPV (test code = 8.7 fL 9.8-13 L 73607-6) RDW-CV (test code = 12.2 % 12.1-15.4 788-0) RDW-SD (test code = 39.5 fL 38.5-51.6 87231-8) NRBC x10^3 (test code = <0.01 See_Comment [Au tomated message] 3565016526) The system [employer] generated this result transmit rony reference range : 10*3/?L. The reference range was not used to interpret this result as normal/abnormal . NRBC/100 WBC (test code See_Comment [Au tomated message] = 4166231127) The system [facility] generated this result transmit rony reference range : 0.0 - 10.0 /100 WBC s. The reference r yen was not used to interpret this result as normal/abnormal . IPF % (test code = 0274301549) Lab Interpretation (test Abnormal code = 26601-5) [facility] GLUCOSE (AUTOMATED)2020-07-29 02:54:00 Test Item Value Reference Range Interpretation Comments POCT GLU (test code = 6967330081) 238 mg/dL 70-110 H Lab Interpretation (test code = Abnormal 72941-5) [facility] GLUCOSE (AUTOMATED)2020-07-29 00:00:00 Test Item Value Reference Range Interpretation Comments POCT GLU (test code = 2053801705) 286 mg/dL 70-110 H Lab Interpretation (test code = Abnormal 53500-7) [facility] - Draw immediately prior to the NEXT dose, but, no more than 60 minutes before the NEXT dose. 2020-07-28 19:59:00 Test Item Value Reference Range Interpretation Comments VANCO TROUGH (test code 10.5 ug/mL 10-20 = 6375422316) DOMENIC (test code = DOMENIC) Toxic Range: ?>20 ug/mL 15-20 ug/mL is recommended for severe infection or when Vancomycin MARK ANTHONY is greater than or equal to 2. Lab Interpretation (test Normal code = 57329-8) [facility] GLUCOSE (AUTOMATED)2020-07-28 19:07:00 Test Item Value Reference Range Interpretation Comments POCT GLU (test code = 301 mg/dL 70-110 H Notifi ed Provider [id number]) Lab Interpretation (test Abnormal code = 99571-6) [facility] GLUCOSE (AUTOMATED)2020-07-28 16:20:00 Test Item Value Reference Range Interpretation Comments POCT GLU (test code = 9881147428) 154 mg/dL 70-110 H Lab Interpretation (test code = Abnormal 37912-2) [facility] GLUCOSE (AUTOMATED)2020-07-28 12:06:00 Test Item Value Reference Range Interpretation Comments POCT GLU (test code = 5097801432) 167 mg/dL 70-110 H Lab Interpretation (test code = Abnormal 30714-5) [facility] (NA, K, CL, CO2, GLUCOSE, BUN, CREATININE, CA)2020-07-28 11:49:00 Test Item Value Reference Range Interpretation Comments NA (test code = 134 mmol/L 135-145 L 1026735476) K (test code = 4.2 mmol/L 3.5-5 5581830854) CL (test code = 100 mmol/L 98-108 4667348628) CO2 TOTAL (test code = 29 mmol/L 23-31 7373245527) AGAP (test code = 2-16 7234857926) BUN (test code = 26 mg/dL 7-23 H 4104291129) GLUCOSE (test code = 156 mg/dL 70-110 H 5940473510) CREATININE (test code = 1.86 mg/dL 0.6-1.25 H 7803132282) CALCIUM (test code = 9.0 mg/dL 8.6-10.6 5440067032) eGFR Calculation mL/min/1.73m2 (Non-) (test code = 8192189626) eGFR Calculation mL/min/1.73m2 () (test code = 2426775644) DOMENIC (test code = DOMENIC) Association of Glomerular Filtration Rate (GFR) and Staging of Kidney Disease* + --+ --+ ------+| GFR (mL/min/1.73 m2) ?| With Kidney Damage ?| ?Without Kidney Damage+ --------+ --------+ +| ?>90 ?| ?Stage one ?| ? Normal ?+ ---+ ---+ -------+| ?60-89 ?| ?Stage two ?| ? Decreased GFR ? + --+ --+ ------+| ?30-59 ?| ?Stage three ?| ? Stage three ? + --+ --+ ------+| ?15-29 ?| ?Stage four ? | ? Stage four ?+ ---+ ---+ -------+| ?<15 (or dialysis) ? ?| ?Stage five ? | ? Stage five ?+ ---+ ---+ -------+ *Each stage assumes the associated GFR level has been in effect for at least three months. ?Stages 1 to 5, with or without kidney disease, indicate chronic kidney disease. Notes: Determination of stages one and two (with eGFR >59mL/min/1.73 m2) requires estimation of kidney damage for at least three months as defined by structural or functional abnormalities of the kidney, manifested by either:Pathological abnormalities or Markers of kidney damage (including abnormalities in the composition of the blood or urine or abnormalities in imaging tests). Lab Interpretation Abnormal (test code = 00236-4) [facility] [id number] 11:16:00 Test Item Value Reference Range Interpretation Comments WBC (test code = 6690-2) See_Comment [A utomated message] The system [employer] generated this result transmit rony reference range : 4.20 - 10.70 10*3/?L. The reference range was not used to interpret this result as normal/abnormal . RBC (test code = 789-8) See_Comment L [Au tomated message] The system [employer] generated this result transmit rony reference range : 4.26 - 5.52 10* 6/?L. The reference r yen was not used to interpret this result as normal/abnormal . HGB (test code = 718-7) 10.5 g/dL 12.2-16.4 L HCT (test code = 4544-3) 31.6 % 38.4-49.3 L MCH (test code = 785-6) 29.3 pg 26.1-32.7 MCV (test code = 787-2) 88.3 fL 81.7-95.6 MCHC (test code = 786-4) 33.2 g/dL 31.2-35 PLT (test code = 777-3) See_Comment H [Au tomated message] The system [employer] generated this result transmit rony reference range : 150 - 328 10*3/?L. The reference range was not used to interpret this result as normal/abnormal . MPV (test code = 8.7 fL 9.8-13 L 82491-5) RDW-CV (test code = 12.2 % 12.1-15.4 788-0) RDW-SD (test code = 39.1 fL 38.5-51.6 56881-0) NRBC x10^3 (test code = <0.01 See_Comment [Au tomated message] 2798320177) The system [employer] generated this result transmit rony reference range : 10*3/?L. The reference range was not used to interpret this result as normal/abnormal . NRBC/100 WBC (test code See_Comment [Au tomated message] = 4633680301) The system [employer] generated this result transmit rony reference range : 0.0 - 10.0 /100 WBC s. The reference r yen was not used to interpret this result as normal/abnormal . IPF % (test code = 1205236368) Lab Interpretation (test Abnormal code = 75478-7) [facility] GLUCOSE (AUTOMATED)2020-07-28 03:20:00 Test Item Value Reference Range Interpretation Comments POCT GLU (test code = 7104304779) 255 mg/dL 70-110 H Lab Interpretation (test code = Abnormal 94442-4) [facility] GLUCOSE (AUTOMATED)2020-07-27 23:37:00 Test Item Value Reference Range Interpretation Comments POCT GLU (test code = 1240579561) 202 mg/dL 70-110 H Lab Interpretation (test code = Abnormal 41160-0) [facility] GLUCOSE (AUTOMATED)2020-07-27 20:39:00 Test Item Value Reference Range Interpretation Comments POCT GLU (test code = 1868920511) 119 mg/dL 70-110 H Lab Interpretation (test code = Abnormal 61730-5) [facility] GLUCOSE (AUTOMATED)2020-07-27 18:08:00 Test Item Value Reference Range Interpretation Comments POCT GLU (test code = 9632060059) 152 mg/dL 70-110 H Lab Interpretation (test code = Abnormal 66163-7) [facility] GLUCOSE (AUTOMATED)2020-07-27 14:31:00 Test Item Value Reference Range Interpretation Comments POCT GLU (test code = 6063964276) 145 mg/dL 70-110 H Lab Interpretation (test code = Abnormal 69509-1) [facility] METABOLIC PANEL (NA, K, CL, CO2, GLUCOSE, BUN, CREATININE, CA)2020-07-27 11:11:00 Test Item Value Reference Range Interpretation Comments NA (test code = 133 mmol/L 135-145 L 1850413864) K (test code = 4.3 mmol/L 3.5-5 Slight 9216226779) hemolysis CL (test code = 100 mmol/L 98-108 9447499110) CO2 TOTAL (test code 28 mmol/L 23-31 = 0696410482) AGAP (test code = 2-16 8043297766) BUN (test code = 21 mg/dL 7-23 Slight 8694582920) hemolysis GLUCOSE (test code = 151 mg/dL 70-110 H 0844682158) CREATININE (test code 1.51 mg/dL 0.6-1.25 H = 6753100976) CALCIUM (test code = 8.8 mg/dL 8.6-10.6 8897255703) eGFR Calculation mL/min/1.73m2 (Non-) (test code = 5252077288) eGFR Calculation mL/min/1.73m2 () (test code = 7562792364) DOMENIC (test code = DOMENIC) Association of Glomerular Filtration Rate (GFR) and Staging of Kidney Disease* + -----+ --------+ +| GFR (mL/min/1.73 m2) ?| With Kidney Damage ?| ?Without Kidney Damage+ +------- +---- --+| ?>90 ?| ?Stage one ?| ? Normal ?+ ------+ ---------+--------- +| ?60-89 ?| ?Stage two ?| ? Decreased GFR ? + -----+ --------+ +| ?30-59 ?| ?Stage three ?| ? Stage three ? + -----+ --------+ +| ?15-29 ?| ?Stage four ? | ? Stage four ?+ ------+ ---------+--------- +| ?<15 (or dialysis) ? ?| ?Stage five ? | ? Stage five ?+ ------+ ---------+--------- + *Each stage assumes the associated GFR level has been in effect for at least three months. ?Stages 1 to 5, with or without kidney disease, indicate chronic kidney disease. Notes: Determination of stages one and two (with eGFR >59mL/min/1.73 m2) requires estimation of kidney damage for at least three months as defined by structural or functional abnormalities of the kidney, manifested by either:Pathological abnormalities or Markers of kidney damage (including abnormalities in the composition of the blood or urine or abnormalities in imaging tests). Lab Interpretation Abnormal (test code = 34588-7) [facility] WITHOUT [id number] 10:56:00 Test Item Value Reference Range Interpretation Comments WBC (test code = 6690-2) See_Comment [A utomated message] The system [employer] generated this result transmit rony reference range : 4.20 - 10.70 10*3/?L. The reference range was not used to interpret this result as normal/abnormal . RBC (test code = 789-8) See_Comment L [Au tomated message] The system [employer] generated this result transmit rony reference range : 4.26 - 5.52 10* 6/?L. The reference r yen was not used to interpret this result as normal/abnormal . HGB (test code = 718-7) 11.1 g/dL 12.2-16.4 L HCT (test code = 4544-3) 33.2 % 38.4-49.3 L MCH (test code = 785-6) 29.7 pg 26.1-32.7 MCV (test code = 787-2) 88.8 fL 81.7-95.6 MCHC (test code = 786-4) 33.4 g/dL 31.2-35 PLT (test code = 777-3) See_Comment H [Au tomated message] The system [employer] generated this result transmit rony reference range : 150 - 328 10*3/?L. The reference range was not used to interpret this result as normal/abnormal . MPV (test code = 9.2 fL 9.8-13 L 25412-9) RDW-CV (test code = 12.1 % 12.1-15.4 788-0) RDW-SD (test code = 38.9 fL 38.5-51.6 98071-7) NRBC x10^3 (test code = <0.01 See_Comment [Au tomated message] 8459696976) The system [employer] generated this result transmit rony reference range : 10*3/?L. The reference range was not used to interpret this result as normal/abnormal . NRBC/100 WBC (test code See_Comment [Au tomated message] = 4800259570) The system [facility] generated this result transmit rony reference range : 0.0 - 10.0 /100 WBC s. The reference r yen was not used to interpret this result as normal/abnormal . IPF % (test code = 0406939205) Lab Interpretation (test Abnormal code = 32646-6) [facility] COVID [id number] 04:21:00COVID DMT InterpretationInterpretation/Recommendations: Molecular NAAT Tests for Active Infection with the SARS-CoV-2 Virus: The patient has currently tested negative for the SARS-CoV-2 virus that causes COVID-19 illness. This most likely indicates that the patient does not have an active infection with the SARS-CoV-2 virus. However, infection is not completely ruled out as the false negative rate for molecular NAAT testing using a nasopharyngeal sample can be up to 30%, mostly dependent on the timing of sample collection in relation to illness onset and any deficiencies in sampling techniques. If the patient has symptoms concerning for COVID-19 illness, a repeat NAAT test (PCR, Rapid ID Now, etc.) should be performed, at which time the SARS-CoV-2 virus - if present - may have reached a detectable viral load (usually peaking by the end of the first week of symptoms). Tests for IgM and/or IgGAntibodies to the SARS-CoV-2 Virus: If the patient develops COVID-19 illness in the future, testingfor IgM and IgG antibodies approximately 3 weeks after illness onset will likely indicate if the patient has produced antibodies to the SARS-CoV-2 virus. However, some patients may take longer to develop detectable antibodies, while some patients who were infected with SARS-CoV-2 may never develop antibodies. While antibodies to SARS-CoV-2 may provide some degree of immunity, at this time the strength and duration of the antibody response is unknown. Interpretation Result Comments:These interpretation comments are based upon all COVID-19 testing the patient has had at [facility], including molecular NAAT testing (more commonly known as PCR testing and Rapid ID Now testing) and antibody testing. It does not take into account any testing that a patient has had outside of the [facility] medical record. [facility] SERVICESCOVID Resu [id number] Rapid ID NOW (no units) ? ? Date ? Value ? 07/26/2020 ? Not Detected ? ? ? 07/21/2020 ? Not Detected ? ? ? 07/14/2020 ?Not Detected ? [facility] 2020-07-27 02:29:00 Test Item Value Reference Range Interpretation Comments POCT GLU (test code = 5155769721) 179 mg/dL 70-110 H Lab Interpretation (test code = Abnormal 20307-9) [facility]ID NOW RAPID TESTING[facility]2020-07-26 23:15:00 Test Item Value Reference Range Interpretation Comments SARS-CoV-2 Rapid ID NOW Not Detected Not Detected (test code = 63675-7) DOMENIC (test code = DOMENIC) ID NOW COVID-19 Assay is an isothermal nucleic acid amplification test intended for the qualitative detection of nucleic acid from SARS-CoV-2 viral RNA in nasopharyngeal (PRESIDENT [employer] CH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 It is used under Emergency Use Authorization (EUA) by FDA. The limit of detection (LOD) of the assay is 125 Genome Equivalents/mL. A positive result is indicative of the presence of SARS-CoV-2 RNA. ?Clinical correlation with patient history and other diagnostic information is necessary to determine patient infection status. A negative (Not Detected) result does not preclude SARS-CoV-2 infection. In patients with clinical symptoms and other tests that are consistent with SARS-CoV-2 infection, negative results should be treated as presumptive negative and a new specimen should be tested with alternative PCR molecular test. Invalid: Please collect a new specimen for repeat patient testing if clinically indicated. Lab Interpretation Normal (test code = 29235-3) [facility] GLUCOSE (AUTOMATED)2020-07-26 23:09:00 Test Item Value Reference Range Interpretation Comments POCT GLU (test code = 6241224498) 215 mg/dL 70-110 H Lab Interpretation (test code = Abnormal 42446-7) [facility] GLUCOSE (AUTOMATED)2020-07-26 19:01:00 Test Item Value Reference Range Interpretation Comments POCT GLU (test code = 4223887561) 194 mg/dL 70-110 H Lab Interpretation (test code = Abnormal 24126-2) [facility]2020-07[facility]26 15:04:00 Test Item Value Reference Range Interpretation Comments POCT GLU (test code = 6911114769) 115 mg/dL 70-110 H Lab Interpretation (test code = Abnormal 75532-4) [facility] METABOLIC PANEL (NA, K, CL, CO2, GLUCOSE, BUN, CREATININE, CA)2020-07-26 12:22:00 Test Item Value Reference Range Interpretation Comments NA (test code = 134 mmol/L 135-145 L 7273263848) K (test code = 4.6 mmol/L 3.5-5 5665498833) CL (test code = 100 mmol/L 98-108 1048769618) CO2 TOTAL (test code = 25 mmol/L 23-31 6529162660) AGAP (test code = 2-16 5244461283) BUN (test code = 20 mg/dL 7-23 4940926986) GLUCOSE (test code = 110 mg/dL 70-110 8114402660) CREATININE (test code = 1.57 mg/dL 0.6-1.25 H 7225368822) CALCIUM (test code = 8.6 mg/dL 8.6-10.6 0762337154) eGFR Calculation mL/min/1.73m2 (Non-) (test code = 9051119589) eGFR Calculation mL/min/1.73m2 () (test code = 9175391685) DOMENIC (test code = DOMENIC) Association of Glomerular Filtration Rate (GFR) and Staging of Kidney Disease* + --+ --+ ------+| GFR (mL/min/1.73 m2) ?| With Kidney Damage ?| ?Without Kidney Damage+ --------+ --------+ +| ?>90 ?| ?Stage one ?| ? Normal ?+ ---+ ---+ -------+| ?60-89 ?| ?Stage two ?| ? Decreased GFR ? + --+ --+ ------+| ?30-59 ?| ?Stage three ?| ? Stage three ? + --+ --+ ------+| ?15-29 ?| ?Stage four ? | ? Stage four ?+ ---+ ---+ -------+| ?<15 (or dialysis) ? ?| ?Stage five ? | ? Stage five ?+ ---+ ---+ -------+ *Each stage assumes the associated GFR level has been in effect for at least three months. ?Stages 1 to 5, with or without kidney disease, indicate chronic kidney disease. Notes: Determination of stages one and two (with eGFR >59mL/min/1.73 m2) requires estimation of kidney damage for at least three months as defined by structural or functional abnormalities of the kidney, manifested by either:Pathological abnormalities or Markers of kidney damage (including abnormalities in the composition of the blood or urine or abnormalities in imaging tests). Lab Interpretation Abnormal (test code = 11128-6) [facility] WITHOUT [id number] 11:49:00 Test Item Value Reference Range Interpretation Comments WBC (test code = 6690-2) See_Comment [A utomated message] The system [employer] generated this result transmit rony reference range : 4.20 - 10.70 10*3/?L. The reference range was not used to interpret this result as normal/abnormal . RBC (test code = 789-8) See_Comment L [Au tomated message] The system [employer] generated this result transmit rony reference range : 4.26 - 5.52 10* 6/?L. The reference r yen was not used to interpret this result as normal/abnormal . HGB (test code = 718-7) 10.5 g/dL 12.2-16.4 L HCT (test code = 4544-3) 31.5 % 38.4-49.3 L MCH (test code = 785-6) 29.8 pg 26.1-32.7 MCV (test code = 787-2) 89.5 fL 81.7-95.6 MCHC (test code = 786-4) 33.3 g/dL 31.2-35 PLT (test code = 777-3) See_Comment H [Au tomated message] The system [employer] generated this result transmit rony reference range : 150 - 328 10*3/?L. The reference range was not used to interpret this result as normal/abnormal . MPV (test code = 8.9 fL 9.8-13 L 79940-9) RDW-CV (test code = 12.0 % 12.1-15.4 L 788-0) RDW-SD (test code = 39.2 fL 38.5-51.6 68172-1) NRBC x10^3 (test code = <0.01 See_Comment [Au tomated message] [id number]) The system [employer] generated this result transmit rony reference range : 10*3/?L. The reference range was not used to interpret this result as normal/abnormal . NRBC/100 WBC (test code See_Comment [Au tomated message] = 1844784775) The system [employer] generated this result transmit rony reference range : 0.0 - 10.0 /100 WBC s. The reference r yen was not used to interpret this result as normal/abnormal . IPF % (test code = 0024727883) Lab Interpretation (test Abnormal code = 38248-7) [facility] GLUCOSE (AUTOMATED)2020-07-26 03:06:00 Test Item Value Reference Range Interpretation Comments POCT GLU (test code = 5619179795) 173 mg/dL 70-110 H Lab Interpretation (test code = Abnormal 20585-2) [facility] GLUCOSE (AUTOMATED)2020-07-25 23:06:00 Test Item Value Reference Range Interpretation Comments POCT GLU (test code = 8089725511) 218 mg/dL 70-110 H Lab Interpretation (test code = Abnormal 00599-2) [facility] - Draw immediately prior to the NEXT dose, but, no more than 60 minutes before the NEXT dose. 2020-07-25 21:22:00 Test Item Value Reference Range Interpretation Comments VANCO TROUGH (test code 11.8 ug/mL 10-20 = 5521095909) DOMENIC (test code = DOMENIC) Toxic Range: ?>20 ug/mL 15-20 ug/mL is recommended for severe infection or when Vancomycin MARK ANTHONY is greater than or equal to 2. Lab Interpretation (test Normal code = 71376-9) [facility] GLUCOSE (AUTOMATED)2020-07-25 16:23:00 Test Item Value Reference Range Interpretation Comments POCT GLU (test code = 6299812375) 133 mg/dL 70-110 H Lab Interpretation (test code = Abnormal 44891-6) [facility] (NA, K, CL, CO2, GLUCOSE, BUN, CREATININE, CA)2020-07-25 12:54:00 Test Item Value Reference Range Interpretation Comments NA (test code = 135 mmol/L 135-145 5696221877) K (test code = 4.3 mmol/L 3.5-5 5884283295) CL (test code = 99 mmol/L 98-108 1624672221) CO2 TOTAL (test code = 30 mmol/L 23-31 4433258091) AGAP (test code = 2-16 7735479998) BUN (test code = 16 mg/dL 7-23 2493646513) GLUCOSE (test code = 128 mg/dL 70-110 H 3015835666) CREATININE (test code = 1.63 mg/dL 0.6-1.25 H 8938106427) CALCIUM (test code = 9.1 mg/dL 8.6-10.6 5571024719) eGFR Calculation mL/min/1.73m2 (Non-) (test code = 7742035848) eGFR Calculation mL/min/1.73m2 () (test code = 5348244212) DOMENIC (test code = DOMENIC) Association of Glomerular Filtration Rate (GFR) and Staging of Kidney Disease* + --+ --+ ------+| GFR (mL/min/1.73 m2) ?| With Kidney Damage ?| ?Without Kidney Damage+ --------+ --------+ +| ?>90 ?| ?Stage one ?| ? Normal ?+ ---+ ---+ -------+| ?60-89 ?| ?Stage two ?| ? Decreased GFR ? + --+ --+ ------+| ?30-59 ?| ?Stage three ?| ? Stage three ? + --+ --+ ------+| ?15-29 ?| ?Stage four ? | ? Stage four ?+ ---+ ---+ -------+| ?<15 (or dialysis) ? ?| ?Stage five ? | ? Stage five ?+ ---+ ---+ -------+ *Each stage assumes the associated GFR level has been in effect for at least three months. ?Stages 1 to 5, with or without kidney disease, indicate chronic kidney disease. Notes: Determination of stages one and two (with eGFR >59mL/min/1.73 m2) requires estimation of kidney damage for at least three months as defined by structural or functional abnormalities of the kidney, manifested by either:Pathological abnormalities or Markers of kidney damage (including abnormalities in the composition of the blood or urine or abnormalities in imaging tests). Lab Interpretation Abnormal (test code = 63510-7) [facility] WITH [id number] 12:33:00 Test Item Value Reference Range Interpretation Comments WBC (test code = See_Comment H [Automated 6690-2) message] The sy stem which generated this result transmitted reference range : 4.20 - 10.70 10*3/?L. The reference range was not used to interpret this result as normal/abnormal . RBC (test code = See_Comment L [Automated 789-8) message] The sy stem which generated this result transmitted reference range : 4.26 - 5.52 10*6/?L. The reference range was not used to interpret this result as normal/abnormal . HGB (test code = 11.6 g/dL 12.2-16.4 L 718-7) HCT (test code = 34.6 % 38.4-49.3 L 4544-3) MCV (test code = 88.5 fL 81.7-95.6 787-2) MCH (test code = 29.7 pg 26.1-32.7 785-6) MCHC (test code = 33.5 g/dL 31.2-35 786-4) RDW-SD (test code = 38.8 fL 38.5-51.6 00630-3) RDW-CV (test code = 12.0 % 12.1-15.4 L 788-0) PLT (test code = See_Comment H [Automated 777-3) message] The sy stem which generated this result transmitted reference range : 150 - 328 10*3/ ?L. The reference r yen was not used to interpret this result as normal/abnormal . MPV (test code = 8.7 fL 9.8-13 L 52562-2) NRBC/100 WBC (test See_Comment [Automat ed code = 7918832175) message] The system which generated this result transmitted reference range : 0.0 - 10.0 /100 WBCs. The refer ence range was not u sed to interpret th is result as normal/abnormal . NRBC x10^3 (test code <0.01 See_Comment [Auto mated = 5950539510) message] The s ystem which generated this result transmitted reference range : 10*3/?L. The reference range was not used to interpret this result as normal/abnormal . GRAN MAT (NEUT) % 68.9 % (test code = 770-8) IMM GRAN % (test code 1.10 % = 8544994526) LYMPH % (test code = 21.0 % 736-9) MONO % (test code = 6.5 % 5905-5) EOS % (test code = 1.9 % 713-8) BASO % (test code = 0.6 % 706-2) GRAN MAT x10^3(ANC) 8.53 10*3/uL 1.99-6.95 H (test code = 1073211018) IMM GRAN x10^3 (test 0.13 10*3/uL 0-0.06 H code = 8237464796) LYMPH x10^3 (test code 2.60 10*3/uL 1.09-3.23 = 731-0) MONO x10^3 (test code 0.80 10*3/uL 0.36-1.02 = 742-7) EOS x10^3 (test code = 0.23 10*3/uL 0.06-0.53 711-2) BASO x10^3 (test code 0.08 10*3/uL 0.01-0.09 = 704-7) Lab Interpretation Abnormal (test code = 06210-2) [facility] GLUCOSE (AUTOMATED)2020-07-25 03:17:00 Test Item Value Reference Range Interpretation Comments POCT GLU (test code = 2935881981) 214 mg/dL 70-110 H Lab Interpretation (test code = Abnormal 19924-3) [facility] GLUCOSE (AUTOMATED)2020-07-24 23:04:00 Test Item Value Reference Range Interpretation Comments POCT GLU (test code = 2642900610) 193 mg/dL 70-110 H Lab Interpretation (test code = Abnormal 43023-9) [facility] GLUCOSE (AUTOMATED)2020-07-24 19:02:00 Test Item Value Reference Range Interpretation Comments POCT GLU (test code = 1195124332) 146 mg/dL 70-110 H Lab Interpretation (test code = Abnormal 86502-1) [facility] GLUCOSE (AUTOMATED)2020-07-24 14:36:00 Test Item Value Reference Range Interpretation Comments POCT GLU (test code = 8787659083) 113 mg/dL 70-110 H Lab Interpretation (test code = Abnormal 02171-1) [facility] GLUCOSE (AUTOMATED)2020-07-24 09:34:00 Test Item Value Reference Range Interpretation Comments POCT GLU (test code = 1603239177) 125 mg/dL 70-110 H Lab Interpretation (test code = Abnormal 28147-1) [facility] (NA, K, CL, CO2, GLUCOSE, BUN, CREATININE, CA)2020-07-24 07:07:00 Test Item Value Reference Range Interpretation Comments NA (test code = 131 mmol/L 135-145 L 9066995910) K (test code = 4.1 mmol/L 3.5-5 8242485144) CL (test code = 99 mmol/L 98-108 9232993609) CO2 TOTAL (test code = 27 mmol/L 23-31 2605858783) AGAP (test code = 2-16 7212033155) BUN (test code = 17 mg/dL 7-23 6679977793) GLUCOSE (test code = 149 mg/dL 70-110 H 3340325766) CREATININE (test code = 1.56 mg/dL 0.6-1.25 H 1600515628) CALCIUM (test code = 8.5 mg/dL 8.6-10.6 L 1756077241) eGFR Calculation mL/min/1.73m2 (Non-) (test code = 3610506436) eGFR Calculation mL/min/1.73m2 () (test code = 5111113907) DOMENIC (test code = DOMENIC) Association of Glomerular Filtration Rate (GFR) and Staging of Kidney Disease* + --+ --+ ------+| GFR (mL/min/1.73 m2) ?| With Kidney Damage ?| ?Without Kidney Damage+ --------+ --------+ +| ?>90 ?| ?Stage one ?| ? Normal ?+ ---+ ---+ -------+| ?60-89 ?| ?Stage two ?| ? Decreased GFR ? + --+ --+ ------+| ?30-59 ?| ?Stage three ?| ? Stage three ? + --+ --+ ------+| ?15-29 ?| ?Stage four ? | ? Stage four ?+ ---+ ---+ -------+| ?<15 (or dialysis) ? ?| ?Stage five ? | ? Stage five ?+ ---+ ---+ -------+ *Each stage assumes the associated GFR level has been in effect for at least three months. ?Stages 1 to 5, with or without kidney disease, indicate chronic kidney disease. Notes: Determination of stages one and two (with eGFR >59mL/min/1.73 m2) requires estimation of kidney damage for at least three months as defined by structural or functional abnormalities of the kidney, manifested by either:Pathological abnormalities or Markers of kidney damage (including abnormalities in the composition of the blood or urine or abnormalities in imaging tests). Lab Interpretation Abnormal (test code = 13982-6) [facility] Test Item Value Reference Range Interpretation Comments MAGNESIUM (test code = 8525386244) 2.0 mg/dL 1.7-2.4 Lab Interpretation (test code = Normal 54159-5) [facility] GLUCOSE (AUTOMATED)2020-07-24 06:36:00 Test Item Value Reference Range Interpretation Comments POCT GLU (test code = 8312918712) 150 mg/dL 70-110 H Lab Interpretation (test code = Abnormal 25364-4) [facility] GLUCOSE (AUTOMATED)2020-07-24 03:11:00 Test Item Value Reference Range Interpretation Comments POCT GLU (test code = 4080966817) 180 mg/dL 70-110 H Lab Interpretation (test code = Abnormal 99756-8) [facility] GLUCOSE (AUTOMATED)2020-07-23 23:34:00 Test Item Value Reference Range Interpretation Comments POCT GLU (test code = 218 mg/dL 70-110 H Notifi ed Provider 6911241537) Lab Interpretation (test Abnormal code = 81500-8) [facility] GLUCOSE (AUTOMATED)2020-07-23 19:55:00 Test Item Value Reference Range Interpretation Comments POCT GLU (test code = 4656731752) 198 mg/dL 70-110 H Lab Interpretation (test code = Abnormal 51579-0) [facility] GLUCOSE (AUTOMATED)2020-07-23 16:23:00 Test Item Value Reference Range Interpretation Comments POCT GLU (test code = 6499236363) 162 mg/dL 70-110 H Lab Interpretation (test code = Abnormal 36703-2) [facility] CULTURE [id number] 16:01:00 Test Item Value Reference Range Interpretation Comments Blood Culture-Aerobic No organisms No growth Previo us (test code = 32398-5) isolated prelim inary verified result was Culture In Progress on 07/18/2020 at 130 1 CSTPrevious preliminary verified result was No growth a t 24 hours on 07/19/2020 at 100 1 CSTPrevious preliminary verified result was No growth a t 48 hours on 07/20/2020 at 10 01 CSTPrevious preliminary verified result was No growth a t 72 hours on 07/21/2020 at 10 01 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 Blood No organisms No growth Previous Culture-Anaerobic isolated preliminar y (test code = 00146-7) verifi ed result was Culture In Progress on 07/18/2020 at 130 1 CSTPrevious preliminary verified result was No growth a t 24 hours on 07/19/2020 at 100 1 CSTPrevious preliminary verified result was No growth a t 48 hours on 07/20/2020 at 10 01 CSTPrevious preliminary verified result was No growth a t 72 hours on 07/21/2020 at 10 01 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 Lab Interpretation Normal (test code = 11841-7) [facility] CULTURE [id number] 16:01:00 Test Item Value Reference Range Interpretation Comments Blood Culture-Aerobic No organisms No growth Previo us (test code = 03454-6) isolated prelim inary verified result was Culture In Progress on 07/18/2020 at 130 1 CSTPrevious preliminary verified result was No growth a t 24 hours on 07/19/2020 at 100 1 CSTPrevious preliminary verified result was No growth a t 48 hours on 07/20/2020 at 10 01 CSTPrevious preliminary verified result was No growth a t 72 hours on 07/21/2020 at 10 01 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 Blood No organisms No growth Previous Culture-Anaerobic isolated preliminar y (test code = 60905-6) verifi ed result was Culture In Progress on 07/18/2020 at 130 1 CSTPrevious preliminary verified result was No growth a t 24 hours on 07/19/2020 at 100 1 CSTPrevious preliminary verified result was No growth a t 48 hours on 07/20/2020 at 10 01 CSTPrevious preliminary verified result was No growth a t 72 hours on 07/21/2020 at 10 01 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 Lab Interpretation Normal (test code = 72989-0) [facility] [id number] 12:03:00 Test Item Value Reference Range Interpretation Comments VANCO RANDOM (test code = 16.3 ug/mL 2135096090) [facility] (NA, K, CL, CO2, GLUCOSE, BUN, CREATININE, CA)2020-07-23 11:58:00 Test Item Value Reference Range Interpretation Comments NA (test code = 132 mmol/L 135-145 L 7430521719) K (test code = 4.5 mmol/L 3.5-5 6746274442) CL (test code = 100 mmol/L 98-108 1974579537) CO2 TOTAL (test code = 24 mmol/L 23-31 4922747359) AGAP (test code = 2-16 0108097778) BUN (test code = 17 mg/dL 7-23 7420824922) GLUCOSE (test code = 137 mg/dL 70-110 H 8756506395) CREATININE (test code = 1.78 mg/dL 0.6-1.25 H 6988146028) CALCIUM (test code = 8.5 mg/dL 8.6-10.6 L 2110379846) eGFR Calculation mL/min/1.73m2 (Non-) (test code = 1046746919) eGFR Calculation mL/min/1.73m2 () (test code = 5840270773) DOMENIC (test code = DOMENIC) Association of Glomerular Filtration Rate (GFR) and Staging of Kidney Disease* + --+ --+ ------+| GFR (mL/min/1.73 m2) ?| With Kidney Damage ?| ?Without Kidney Damage+ --------+ --------+ +| ?>90 ?| ?Stage one ?| ? Normal ?+ ---+ ---+ -------+| ?60-89 ?| ?Stage two ?| ? Decreased GFR ? + --+ --+ ------+| ?30-59 ?| ?Stage three ?| ? Stage three ? + --+ --+ ------+| ?15-29 ?| ?Stage four ? | ? Stage four ?+ ---+ ---+ -------+| ?<15 (or dialysis) ? ?| ?Stage five ? | ? Stage five ?+ ---+ ---+ -------+ *Each stage assumes the associated GFR level has been in effect for at least three months. ?Stages 1 to 5, with or without kidney disease, indicate chronic kidney disease. Notes: Determination of stages one and two (with eGFR >59mL/min/1.73 m2) requires estimation of kidney damage for at least three months as defined by structural or functional abnormalities of the kidney, manifested by either:Pathological abnormalities or Markers of kidney damage (including abnormalities in the composition of the blood or urine or abnormalities in imaging tests). Lab Interpretation Abnormal (test code = 58948-0) [facility] Test Item Value Reference Range Interpretation Comments MAGNESIUM (test code = 6370101392) 2.0 mg/dL 1.7-2.4 Lab Interpretation (test code = Normal 05554-7) [facility] GLUCOSE (AUTOMATED)2020-07-23 10:39:00 Test Item Value Reference Range Interpretation Comments POCT GLU (test code = 2987228593) 134 mg/dL 70-110 H Lab Interpretation (test code = Abnormal 11260-8) [facility] GLUCOSE (AUTOMATED)2020-07-23 06:03:00 Test Item Value Reference Range Interpretation Comments POCT GLU (test code = 9958106367) 163 mg/dL 70-110 H Lab Interpretation (test code = Abnormal 86570-6) [facility] GLUCOSE (AUTOMATED)2020-07-23 03:35:00 Test Item Value Reference Range Interpretation Comments POCT GLU (test code = 0846946408) 236 mg/dL 70-110 H Lab Interpretation (test code = Abnormal 91574-0) [facility]2020-07-22 23:51:00 Test Item Value Reference Range Interpretation Comments POCT GLU (test code = 2693316209) 244 mg/dL 70-110 H Lab Interpretation (test code = Abnormal 73210-8) [facility] METABOLIC PANEL (NA, K, CL, CO2, GLUCOSE, BUN, CREATININE, CA)2020-07-22 20:49:00 Test Item Value Reference Range Interpretation Comments NA (test code = 132 mmol/L 135-145 L 0478490229) K (test code = 4.0 mmol/L 3.5-5 7503351993) CL (test code = 98 mmol/L 98-108 1723322956) CO2 TOTAL (test code = 26 mmol/L 23-31 3304916565) AGAP (test code = 2-16 5353052310) BUN (test code = 17 mg/dL 7-23 7357931990) GLUCOSE (test code = 279 mg/dL 70-110 H 9484784903) CREATININE (test code = 1.89 mg/dL 0.6-1.25 H 4286207850) CALCIUM (test code = 8.6 mg/dL 8.6-10.6 1581469146) eGFR Calculation mL/min/1.73m2 (Non-) (test code = 2792374442) eGFR Calculation mL/min/1.73m2 () (test code = 5443803754) DOMENIC (test code = DOMENIC) Association of Glomerular Filtration Rate (GFR) and Staging of Kidney Disease* + --+ --+ ------+| GFR (mL/min/1.73 m2) ?| With Kidney Damage ?| ?Without Kidney Damage+ --------+ --------+ +| ?>90 ?| ?Stage one ?| ? Normal ?+ ---+ ---+ -------+| ?60-89 ?| ?Stage two ?| ? Decreased GFR ? + --+ --+ ------+| ?30-59 ?| ?Stage three ?| ? Stage three ? + --+ --+ ------+| ?15-29 ?| ?Stage four ? | ? Stage four ?+ ---+ ---+ -------+| ?<15 (or dialysis) ? ?| ?Stage five ? | ? Stage five ?+ ---+ ---+ -------+ *Each stage assumes the associated GFR level has been in effect for at least three months. ?Stages 1 to 5, with or without kidney disease, indicate chronic kidney disease. Notes: Determination of stages one and two (with eGFR >59mL/min/1.73 m2) requires estimation of kidney damage for at least three months as defined by structural or functional abnormalities of the kidney, manifested by either:Pathological abnormalities or Markers of kidney damage (including abnormalities in the composition of the blood or urine or abnormalities in imaging tests). Lab Interpretation Abnormal (test code = 39467-3) [facility] GLUCOSE (AUTOMATED)2020-07-22 19:08:00 Test Item Value Reference Range Interpretation Comments POCT GLU (test code = 7895520701) 189 mg/dL 70-110 H Lab Interpretation (test code = Abnormal 94587-4) [facility] GLUCOSE (AUTOMATED)2020-07-22 15:05:00 Test Item Value Reference Range Interpretation Comments POCT GLU (test code = 5296233356) 144 mg/dL 70-110 H Lab Interpretation (test code = Abnormal 05561-2) [facility] METABOLIC PANEL (NA, K, CL, CO2, GLUCOSE, BUN, CREATININE, CA)2020-07-22 12:20:00 Test Item Value Reference Range Interpretation Comments NA (test code = 132 mmol/L 135-145 L 6669167957) K (test code = 3.7 mmol/L 3.5-5 5321188445) CL (test code = 100 mmol/L 98-108 3524952374) CO2 TOTAL (test code = 23 mmol/L 23-31 9360829493) AGAP (test code = 2-16 5180788123) BUN (test code = 17 mg/dL 7-23 5894499249) GLUCOSE (test code = 145 mg/dL 70-110 H 1984551401) CREATININE (test code = 1.88 mg/dL 0.6-1.25 H 1789636119) CALCIUM (test code = 8.2 mg/dL 8.6-10.6 L 3373511339) eGFR Calculation mL/min/1.73m2 (Non-) (test code = 4903520358) eGFR Calculation mL/min/1.73m2 () (test code = 9843788948) DOMENIC (test code = DOMENIC) Association of Glomerular Filtration Rate (GFR) and Staging of Kidney Disease* + --+ --+ ------+| GFR (mL/min/1.73 m2) ?| With Kidney Damage ?| ?Without Kidney Damage+ --------+ --------+ +| ?>90 ?| ?Stage one ?| ? Normal ?+ ---+ ---+ -------+| ?60-89 ?| ?Stage two ?| ? Decreased GFR ? + --+ --+ ------+| ?30-59 ?| ?Stage three ?| ? Stage three ? + --+ --+ ------+| ?15-29 ?| ?Stage four ? | ? Stage four ?+ ---+ ---+ -------+| ?<15 (or dialysis) ? ?| ?Stage five ? | ? Stage five ?+ ---+ ---+ -------+ *Each stage assumes the associated GFR level has been in effect for at least three months. ?Stages 1 to 5, with or without kidney disease, indicate chronic kidney disease. Notes: Determination of stages one and two (with eGFR >59mL/min/1.73 m2) requires estimation of kidney damage for at least three months as defined by structural or functional abnormalities of the kidney, manifested by either:Pathological abnormalities or Markers of kidney damage (including abnormalities in the composition of the blood or urine or abnormalities in imaging tests). Lab Interpretation Abnormal (test code = 49265-9) [facility] 12[facility]20:00 Test Item Value Reference Range Interpretation Comments MAGNESIUM (test code = 1125654961) 2.0 mg/dL 1.7-2.4 Lab Interpretation (test code = Normal 66951-0) [facility] WITHOUT [id number] 12:09:00 Test Item Value Reference Range Interpretation Comments WBC (test code = 6690-2) See_Comment H [A utomated message] The system [facility] generated this result transmit rony reference range : 4.20 - 10.70 10*3/?L. The reference range was not used to interpret this result as normal/abnormal . RBC (test code = 789-8) See_Comment L [Au tomated message] The system [facility] generated this result transmit rony reference range : 4.26 - 5.52 10* 6/?L. The reference r yen was not used to interpret this result as normal/abnormal . HGB (test code = 718-7) 8.8 g/dL 12.2-16.4 L HCT (test code = 4544-3) 26.6 % 38.4-49.3 L MCH (test code = 785-6) 29.7 pg 26.1-32.7 MCV (test code = 787-2) 89.9 fL 81.7-95.6 MCHC (test code = 786-4) 33.1 g/dL 31.2-35 PLT (test code = 777-3) See_Comment H [Au tomated message] The system [facility] generated this result transmit rony reference range : 150 - 328 10*3/?L. The reference range was not used to interpret this result as normal/abnormal . MPV (test code = 9.1 fL 9.8-13 L 40719-6) RDW-CV (test code = 12.2 % 12.1-15.4 788-0) RDW-SD (test code = 39.8 fL 38.5-51.6 70723-7) NRBC x10^3 (test code = <0.01 See_Comment [Au tomated message] 2959179969) The system [facility] generated this result transmit rony reference range : 10*3/?L. The reference range was not used to interpret this result as normal/abnormal . NRBC/100 WBC (test code See_Comment [Au tomated message] = 0287389432) The system [facility] generated this result transmit rony reference range : 0.0 - 10.0 /100 WBC s. The reference r yen was not used to interpret this result as normal/abnormal . IPF % (test code = 7891016161) Lab Interpretation (test Abnormal code = 10790-2) [facility] GLUCOSE (AUTOMATED)2020-07-22 11:50:00 Test Item Value Reference Range Interpretation Comments POCT GLU (test code = 0036100213) 127 mg/dL 70-110 H Lab Interpretation (test code = Abnormal 90265-0) [facility] GLUCOSE (AUTOMATED)2020-07-22 10:17:00 Test Item Value Reference Range Interpretation Comments POCT GLU (test code = 6261091044) 138 mg/dL 70-110 H Lab Interpretation (test code = Abnormal 68694-3) [facility] GLUCOSE (AUTOMATED)2020-07-22 08:50:00 Test Item Value Reference Range Interpretation Comments POCT GLU (test code = 1546490232) 157 mg/dL 70-110 H Lab Interpretation (test code = Abnormal 17882-0) [facility] GLUCOSE (AUTOMATED)2020-07-22 06:30:00 Test Item Value Reference Range Interpretation Comments POCT GLU (test code = 0476277879) 182 mg/dL 70-110 H Lab Interpretation (test code = Abnormal 67423-4) [facility] GLUCOSE (AUTOMATED)2020-07-22 04:37:00 Test Item Value Reference Range Interpretation Comments POCT GLU (test code = 3221308005) 226 mg/dL 70-110 H Lab Interpretation (test code = Abnormal 70036-7) [facility] URINE [id number] 01:16:00 Test Item Value Reference Range Interpretation Comments NA URINE (test code = 2429963426) 120 mmol/L [facility] URINE [id number] 01:16:00 Test Item Value Reference Range Interpretation Comments CREAT U (test code = 5074363882) 64.1 mg/dL [facility] GLUCOSE (AUTOMATED)2020-07-22 00:01:00 Test Item Value Reference Range Interpretation Comments POCT GLU (test code = 9261001713) 184 mg/dL 70-110 H Lab Interpretation (test code = Abnormal 64979-8) [facility] COVID [id number] 23:21:00COVID DMT InterpretationInterpretation/Recommendations: Molecular NAAT Tests for Active Infection with the SARS-CoV-2 Virus: This patient has tested negative on two occasions for the SARS-CoV-2 virus that causes COVID-19 illness. This most likely indicates that the patient does not have an active infection with the SARS-CoV-2 virus, especially if these tests coincide with the patient's current presentation. However, infection is not completely ruled out as the false negative rate for molecular NAAT testing using a nasopharyngeal sample can be up to 30%, mostly dependent on the timing of sample collection in relation to illness onset and any deficiencies in sampling techniques. If the patient has sy mptoms concerning for COVID-19 illness, a repeat NAAT test (PCR, Rapid ID Now, etc.) should be performed, at which time the SARS-CoV-2 virus - if present - may have reached a detectable viral load (usually peaking by the end of the first week of symptoms). Tests for IgM and/or IgG Antibodies to SARS-CoV-2 Virus: Testing for IgM and IgG antibodies 1-3 weeks after illness onset will indicate whether the patient has produced antibodies to the virus. At this time, it is not known if the production of antibodies - specifically IgG antibodies - indicates whether the patient is immune to future infections with the SARS-CoV-2 virus. -- Interpretation Result Comments:These interpretation comments are based upon all COVID-19 testing the patient has had at [facility], including molecular NAAT testing (more commonly known as PCR testing andRapid ID Now testing) and antibody testing. It does not take into account any testing that a patienthas had outside of the [facility] medical record. [facility] SERVICES[facility] [id number] Rapid ID NOW (no units) ? ? Date ? Value ? 07/21/2020 ? Not Detected ? ? ? 07/14/2020 ? Not Detected ? [facility] - Draw immediately prior to the 1030 dose on 07/21/20 due to increasing [id number] 22:54:00 Test Item Value Reference Range Interpretation Comments VANCO TROUGH (test code 19.5 ug/mL - = 8782465422) DOMENIC (test code = DOMENIC) Toxic Range: ?>20 ug/mL 15-20 ug/mL is recommended for severe infection or when Vancomycin MARK ANTHONY is greater than or equal to 2. Lab Interpretation (test Normal code = 64158-7) [facility] GLUCOSE (AUTOMATED)2020-07-21 20:54:00 Test Item Value Reference Range Interpretation Comments POCT GLU (test code = 7684488174) 163 mg/dL 70-110 H Lab Interpretation (test code = Abnormal 49929-9) [facility] GLUCOSE (AUTOMATED)2020-07-21 18:10:00 Test Item Value Reference Range Interpretation Comments POCT GLU (test code = 2659157002) 156 mg/dL 70-110 H Lab Interpretation (test code = Abnormal 92392-3) [facility]2020-07-21 16:49:00 Test Item Value Reference Range Interpretation Comments SARS-CoV-2 Rapid ID NOW Not Detected Not Detected (test code = 68201-8) DOMENIC (test code = DOMENIC) ID NOW COVID-19 Assay is an isothermal nucleic acid amplification test intended for the qualitative detection of nucleic acid from SARS-CoV-2 viral RNA in nasopharyngeal (PRESIDENT AND CH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 It is used under Emergency Use Authorization (EUA) by FDA. The limit of detection (LOD) of the assay is 125 Genome Equivalents/mL. A positive result is indicative of the presence of SARS-CoV-2 RNA. ?Clinical correlation with patient history and other diagnostic information is necessary to determine patient infection status. A negative (Not Detected) result does not preclude SARS-CoV-2 infection. In patients with clinical symptoms and other tests that are consistent with SARS-CoV-2 infection, negative results should be treated as presumptive negative and a new specimen should be tested with alternative PCR molecular test. Invalid: Please collect a new specimen for repeat patient testing if clinically indicated. Lab Interpretation Normal (test code = 49023-6) [facility] GLUCOSE (AUTOMATED)2020-07-21 13:58:00 Test Item Value Reference Range Interpretation Comments POCT GLU (test code = 6551341898) 136 mg/dL 70-110 H Lab Interpretation (test code = Abnormal 08617-2) [facility] METABOLIC PANEL (NA, K, CL, CO2, GLUCOSE, BUN, CREATININE, CA)2020-07-21 10:30:00 Test Item Value Reference Range Interpretation Comments NA (test code = 133 mmol/L 135-145 L 6921201287) K (test code = 3.8 mmol/L 3.5-5 1285562521) CL (test code = 99 mmol/L 98-108 8941726818) CO2 TOTAL (test code = 24 mmol/L 23-31 4438571173) AGAP (test code = 2-16 6234478801) BUN (test code = 17 mg/dL 7-23 9367067711) GLUCOSE (test code = 243 mg/dL 70-110 H 8423150032) CREATININE (test code = 1.87 mg/dL 0.6-1.25 H 6869094930) CALCIUM (test code = 8.1 mg/dL 8.6-10.6 L 7866645191) eGFR Calculation mL/min/1.73m2 (Non-) (test code = 9274861741) eGFR Calculation mL/min/1.73m2 () (test code = 7627875158) DOMENIC (test code = DOMENIC) Association of Glomerular Filtration Rate (GFR) and Staging of Kidney Disease* + --+ --+ ------+| GFR (mL/min/1.73 m2) ?| With Kidney Damage ?| ?Without Kidney Damage+ --------+ --------+ +| ?>90 ?| ?Stage one ?| ? Normal ?+ ---+ ---+ -------+| ?60-89 ?| ?Stage two ?| ? Decreased GFR ? + --+ --+ ------+| ?30-59 ?| ?Stage three ?| ? Stage three ? + --+ --+ ------+| ?15-29 ?| ?Stage four ? | ? Stage four ?+ ---+ ---+ -------+| ?<15 (or dialysis) ? ?| ?Stage five ? | ? Stage five ?+ ---+ ---+ -------+ *Each stage assumes the associated GFR level has been in effect for at least three months. ?Stages 1 to 5, with or without kidney disease, indicate chronic kidney disease. Notes: Determination of stages one and two (with eGFR >59mL/min/1.73 m2) requires estimation of kidney damage for at least three months as defined by structural or functional abnormalities of the kidney, manifested by either:Pathological abnormalities or Markers of kidney damage (including abnormalities in the composition of the blood or urine or abnormalities in imaging tests). Lab Interpretation Abnormal (test code = 93264-0) [facility] 10[facility]30:00 Test Item Value Reference Range Interpretation Comments MAGNESIUM (test code = 1695121569) 1.9 mg/dL 1.7-2.4 Lab Interpretation (test code = Normal 83827-7) [facility] WITH [id number] 10:22:00 Test Item Value Reference Range Interpretation Comments WBC (test code = See_Comment H [Automated 6690-2) message] The system which generated this result transmit rony reference range : 4.20 - 10.70 10*3/?L. The reference range was not used to interpret this result as normal/abnormal . RBC (test code = See_Comment L [Automated 789-8) message] The system which generated this result transmit rony reference range : 4.26 - 5.52 10*6/?L. The reference range was not used to interpret this result as normal/abnormal . HGB (test code = 9.1 g/dL 12.2-16.4 L 718-7) HCT (test code = 26.8 % 38.4-49.3 L 4544-3) MCV (test code = 89.6 fL 81.7-95.6 787-2) MCH (test code = 30.4 pg 26.1-32.7 785-6) MCHC (test code = 34.0 g/dL 31.2-35 786-4) RDW-SD (test code = 39.1 fL 38.5-51.6 97631-2) RDW-CV (test code = 12.1 % 12.1-15.4 788-0) PLT (test code = See_Comment H [Automated 777-3) message] The system which generated this result transmit rony reference range : 150 - 328 10*3/ ?L. The reference range was not u sed to interpret th is result as normal/abnormal . MPV (test code = 9.6 fL 9.8-13 L 56633-3) NRBC/100 WBC (test See_Comment [Automat ed code = 5759707834) message] The system which generated this result transmit rony reference range : 0.0 - 10.0 /100 WBCs. The reference range was not used to interpret this result as normal/abnormal . NRBC x10^3 (test code <0.01 See_Comment [Auto mated = 4620437289) message] The system which generated this result transmit rony reference range : 10*3/?L. The reference range was not used to interpret this result as normal/abnormal . GRAN MAT (NEUT) % 81.0 % (test code = 770-8) IMM GRAN % (test code 1.00 % = 9601292542) LYMPH % (test code = 9.8 % 736-9) MONO % (test code = 7.1 % 5905-5) EOS % (test code = 0.8 % 713-8) BASO % (test code = 0.3 % 706-2) GRAN MAT x10^3(ANC) 11.43 10*3/uL 1.99-6.95 H (test code = 5118599619) IMM GRAN x10^3 (test 0.14 10*3/uL 0-0.06 H code = 7236778482) LYMPH x10^3 (test code 1.38 10*3/uL 1.09-3.23 = 731-0) MONO x10^3 (test code 1.00 10*3/uL 0.36-1.02 = 742-7) EOS x10^3 (test code = 0.11 10*3/uL 0.06-0.53 711-2) BASO x10^3 (test code 0.04 10*3/uL 0.01-0.09 = 704-7) Lab Interpretation Abnormal (test code = 01918-1) [facility] GLUCOSE (AUTOMATED)2020-07-21 09:31:00 Test Item Value Reference Range Interpretation Comments POCT GLU (test code = 8484877489) 433 mg/dL 70-110 H Lab Interpretation (test code = Abnormal 06298-2) [facility] GLUCOSE (AUTOMATED)2020-07-21 09:31:00 Test Item Value Reference Range Interpretation Comments POCT GLU (test code = 6355633603) 176 mg/dL 70-110 H Lab Interpretation (test code = Abnormal 25718-0) [facility] - Draw immediately prior to the 4TH dose, but, no more than 60 minutes before the 4TH dose. 2020-07-21 04:19:00 Test Item Value Reference Range Interpretation Comments VANCO TROUGH (test code 22.5 ug/mL 10-20 H = 7741985463) DOMENIC (test code = DOMENIC) Toxic Range: ?>20 ug/mL 15-20 ug/mL is recommended for severe infection or when Vancomycin MARK ANTHONY is greater than or equal to 2. Lab Interpretation (test Abnormal code = 48175-6) [facility] GLUCOSE (AUTOMATED)2020-07-21 03:26:00 Test Item Value Reference Range Interpretation Comments POCT GLU (test code = 1605013435) 206 mg/dL 70-110 H Lab Interpretation (test code = Abnormal 73813-0) [facility] GLUCOSE (AUTOMATED)2020-07-20 23:40:00 Test Item Value Reference Range Interpretation Comments POCT GLU (test code = 9940423469) 201 mg/dL 70-110 H Lab Interpretation (test code = Abnormal 10734-3) [facility] GLUCOSE (AUTOMATED)2020-07-20 18:44:00 Test Item Value Reference Range Interpretation Comments POCT GLU (test code = 7116659667) 178 mg/dL 70-110 H Lab Interpretation (test code = Abnormal 01142-6) [facility] GLUCOSE (AUTOMATED)2020-07-20 15:02:00 Test Item Value Reference Range Interpretation Comments POCT GLU (test code = 2956041918) 151 mg/dL 70-110 H Lab Interpretation (test code = Abnormal 68409-7) [facility] (NA, K, CL, CO2, GLUCOSE, BUN, CREATININE, CA)2020-07-20 11:40:00 Test Item Value Reference Range Interpretation Comments NA (test code = 131 mmol/L 135-145 L 0505644632) K (test code = 3.9 mmol/L 3.5-5 5656809904) CL (test code = 96 mmol/L 98-108 L 8674910605) CO2 TOTAL (test code = 24 mmol/L 23-31 4805176583) AGAP (test code = 2-16 9685409331) BUN (test code = 14 mg/dL 7-23 2499722618) GLUCOSE (test code = 157 mg/dL 70-110 H 6939579499) CREATININE (test code = 1.12 mg/dL 0.6-1.25 4613935852) CALCIUM (test code = 8.6 mg/dL 8.6-10.6 4209096491) eGFR Calculation mL/min/1.73m2 (Non-) (test code = 1783298763) eGFR Calculation mL/min/1.73m2 () (test code = 8396666443) DOMENIC (test code = DOMENIC) Association of Glomerular Filtration Rate (GFR) and Staging of Kidney Disease* + --+ --+ ------+| GFR (mL/min/1.73 m2) ?| With Kidney Damage ?| ?Without Kidney Damage+ --------+ --------+ +| ?>90 ?| ?Stage one ?| ? Normal ?+ ---+ ---+ -------+| ?60-89 ?| ?Stage two ?| ? Decreased GFR ? + --+ --+ ------+| ?30-59 ?| ?Stage three ?| ? Stage three ? + --+ --+ ------+| ?15-29 ?| ?Stage four ? | ? Stage four ?+ ---+ ---+ -------+| ?<15 (or dialysis) ? ?| ?Stage five ? | ? Stage five ?+ ---+ ---+ -------+ *Each stage assumes the associated GFR level has been in effect for at least three months. ?Stages 1 to 5, with or without kidney disease, indicate chronic kidney disease. Notes: Determination of stages one and two (with eGFR >59mL/min/1.73 m2) requires estimation of kidney damage for at least three months as defined by structural or functional abnormalities of the kidney, manifested by either:Pathological abnormalities or Markers of kidney damage (including abnormalities in the composition of the blood or urine or abnormalities in imaging tests). Lab Interpretation Abnormal (test code = 93124-8) [facility] 11:40:00 Test Item Value Reference Range Interpretation Comments MAGNESIUM (test code = 1533223897) 2.0 mg/dL 1.7-2.4 Lab Interpretation (test code = Normal 53503-2) [facility] WITH [id number] 11:12:00 Test Item Value Reference Range Interpretation Comments WBC (test code = See_Comment H [Automated 6690-2) message] The system which generated this result transmit rony reference range : 4.20 - 10.70 10*3/?L. The reference range was not used to interpret this result as normal/abnormal . RBC (test code = See_Comment L [Automated 789-8) message] The system which generated this result transmit rony reference range : 4.26 - 5.52 10*6/?L. The reference range was not used to interpret this result as normal/abnormal . HGB (test code = 10.1 g/dL 12.2-16.4 L 718-7) HCT (test code = 29.7 % 38.4-49.3 L 4544-3) MCV (test code = 89.5 fL 81.7-95.6 787-2) MCH (test code = 30.4 pg 26.1-32.7 785-6) MCHC (test code = 34.0 g/dL 31.2-35 786-4) RDW-SD (test code = 38.9 fL 38.5-51.6 53960-7) RDW-CV (test code = 12.0 % 12.1-15.4 L 788-0) PLT (test code = See_Comment H [Automated 777-3) message] The system which generated this result transmit rony reference range : 150 - 328 10*3/ ?L. The reference range was not u sed to interpret th is result as normal/abnormal . MPV (test code = 9.4 fL 9.8-13 L 75333-1) NRBC/100 WBC (test See_Comment [Automat ed code = 7825683910) message] The system which generated this result transmit rony reference range : 0.0 - 10.0 /100 WBCs. The reference range was not used to interpret this result as normal/abnormal . NRBC x10^3 (test code <0.01 See_Comment [Auto mated = 7332886208) message] The system which generated this result transmit rony reference range : 10*3/?L. The reference range was not used to interpret this result as normal/abnormal . GRAN MAT (NEUT) % 78.1 % (test code = 770-8) IMM GRAN % (test code 0.90 % = 9252613563) LYMPH % (test code = 12.7 % 736-9) MONO % (test code = 6.9 % 5905-5) EOS % (test code = 1.1 % 713-8) BASO % (test code = 0.3 % 706-2) GRAN MAT x10^3(ANC) 13.11 10*3/uL 1.99-6.95 H (test code = 6067812381) IMM GRAN x10^3 (test 0.15 10*3/uL 0-0.06 H code = 4631407047) LYMPH x10^3 (test code 2.14 10*3/uL 1.09-3.23 = 731-0) MONO x10^3 (test code 1.16 10*3/uL 0.36-1.02 H = 742-7) EOS x10^3 (test code = 0.19 10*3/uL 0.06-0.53 711-2) BASO x10^3 (test code 0.05 10*3/uL 0.01-0.09 = 704-7) Lab Interpretation Abnormal (test code = 11167-7) [facility] GLUCOSE (AUTOMATED)2020-07-20 10:55:00 Test Item Value Reference Range Interpretation Comments POCT GLU (test code = 0696782159) 146 mg/dL 70-110 H Lab Interpretation (test code = Abnormal 24830-9) [facility] GLUCOSE (AUTOMATED)2020-07-20 05:23:00 Test Item Value Reference Range Interpretation Comments POCT GLU (test code = 2083952173) 232 mg/dL 70-110 H Lab Interpretation (test code = Abnormal 96257-8) [facility] GLUCOSE (AUTOMATED)2020-07-20 02:37:00 Test Item Value Reference Range Interpretation Comments POCT GLU (test code = 9455642633) 284 mg/dL 70-110 H Lab Interpretation (test code = Abnormal 19186-6) [facility] GLUCOSE (AUTOMATED)2020-07-20 01:12:00 Test Item Value Reference Range Interpretation Comments POCT GLU (test code = 3328696304) 199 mg/dL 70-110 H Lab Interpretation (test code = Abnormal 96173-8) [facility] GLUCOSE (AUTOMATED)2020-07-20 00:59:00 Test Item Value Reference Range Interpretation Comments POCT GLU (test code = 7748210455) 209 mg/dL 70-110 H Lab Interpretation (test code = Abnormal 33538-4) [facility] - Draw immediately prior to the 4TH dose, but, no more than 60 minutes before the 4TH dose. 2020-07-19 22:54:00 Test Item Value Reference Range Interpretation Comments VANCO TROUGH (test code 18.5 ug/mL 10-20 = 5624411907) DOMENIC (test code = DOMENIC) Toxic Range: ?>20 ug/mL 15-20 ug/mL is recommended for severe infection or when Vancomycin MARK ANTHONY is greater than or equal to 2. Lab Interpretation (test Normal code = 22225-4) [facility] GLUCOSE (AUTOMATED)2020-07-19 20:07:00 Test Item Value Reference Range Interpretation Comments POCT GLU (test code = 2883253296) 159 mg/dL 70-110 H Lab Interpretation (test code = Abnormal 55832-3) [facility] [id number] 19:01:00 Test Item Value Reference Range Interpretation Comments Blood Culture-Aerobic No organisms No growth Previo us (test code = 26830-5) isolated prelim inary verified result was Culture In Progress on 07/14/2020 at 160 1 CSTPrevious preliminary verified result was No growth a t 24 hours on 07/15/2020 at 130 1 CSTPrevious preliminary verified result was No growth a t 48 hours on 07/16/2020 at 130 1 CSTPrevious preliminary verified result was No growth a t 72 hours on 07/17/2020 at 130 1 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 Blood No organisms No growth Previous Culture-Anaerobic isolated preliminar y (test code = 38305-6) verifi ed result was Culture In Progress on 07/14/2020 at 160 1 CSTPrevious preliminary verified result was No growth a t 24 hours on 07/15/2020 at 130 1 CSTPrevious preliminary verified result was No growth a t 48 hours on 07/16/2020 at 130 1 CSTPrevious preliminary verified result was No growth a t 72 hours on 07/17/2020 at 130 1 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 Lab Interpretation Normal (test code = 25040-5) [facility] GLUCOSE (AUTOMATED)2020-07-19 18:18:00 Test Item Value Reference Range Interpretation Comments POCT GLU (test code = 5789124658) 149 mg/dL 70-110 H Lab Interpretation (test code = Abnormal 16063-8) [facility] [id number] 17:02:00 Test Item Value Reference Range Interpretation Comments Blood Culture-Aerobic No organisms No growth Previo us (test code = 19516-8) isolated prelim inary verified result was Culture In Progress on 07/14/2020 at 140 1 CSTPrevious preliminary verified result was No growth a t 24 hours on 07/15/2020 at 110 1 CSTPrevious preliminary verified result was No growth a t 48 hours on 07/16/2020 at 110 1 CSTPrevious preliminary verified result was No growth a t 72 hours on 07/17/2020 at 110 1 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 Blood No organisms No growth Previous Culture-Anaerobic isolated preliminar y (test code = 17578-8) verifi ed result was Culture In Progress on 07/14/2020 at 140 1 CSTPrevious preliminary verified result was No growth a t 24 hours on 07/15/2020 at 110 1 CSTPrevious preliminary verified result was No growth a t 48 hours on 07/16/2020 at 110 1 CSTPrevious preliminary verified result was No growth a t 72 hours on 07/17/2020 at 110 1 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 Lab Interpretation Normal (test code = 53338-1) [facility] GLUCOSE (AUTOMATED)2020-07-19 14:35:00 Test Item Value Reference Range Interpretation Comments POCT GLU (test code = 9998388759) 136 mg/dL 70-110 H Lab Interpretation (test code = Abnormal 84107-8) [facility] (NA, K, CL, CO2, GLUCOSE, BUN, CREATININE, CA)2020-07-19 12:51:00 Test Item Value Reference Range Interpretation Comments NA (test code = 135 mmol/L 135-145 3446431746) K (test code = 3.6 mmol/L 3.5-5 0625050142) CL (test code = 101 mmol/L 98-108 6696310272) CO2 TOTAL (test code = 24 mmol/L 23-31 9516815867) AGAP (test code = 2-16 9814431505) BUN (test code = 11 mg/dL 7-23 8590609754) GLUCOSE (test code = 163 mg/dL 70-110 H 0122039658) CREATININE (test code = 0.77 mg/dL 0.6-1.25 3414756903) CALCIUM (test code = 8.4 mg/dL 8.6-10.6 L 8676479571) eGFR Calculation mL/min/1.73m2 (Non-) (test code = 4611399919) eGFR Calculation mL/min/1.73m2 () (test code = 1568737080) DOMENIC (test code = DOMENIC) Association of Glomerular Filtration Rate (GFR) and Staging of Kidney Disease* + --+ --+ ------+| GFR (mL/min/1.73 m2) ?| With Kidney Damage ?| ?Without Kidney Damage+ --------+ --------+ +| ?>90 ?| ?Stage one ?| ? Normal ?+ ---+ ---+ -------+| ?60-89 ?| ?Stage two ?| ? Decreased GFR ? + --+ --+ ------+| ?30-59 ?| ?Stage three ?| ? Stage three ? + --+ --+ ------+| ?15-29 ?| ?Stage four ? | ? Stage four ?+ ---+ ---+ -------+| ?<15 (or dialysis) ? ?| ?Stage five ? | ? Stage five ?+ ---+ ---+ -------+ *Each stage assumes the associated GFR level has been in effect for at least three months. ?Stages 1 to 5, with or without kidney disease, indicate chronic kidney disease. Notes: Determination of stages one and two (with eGFR >59mL/min/1.73 m2) requires estimation of kidney damage for at least three months as defined by structural or functional abnormalities of the kidney, manifested by either:Pathological abnormalities or Markers of kidney damage (including abnormalities in the composition of the blood or urine or abnormalities in imaging tests). Lab Interpretation Abnormal (test code = 67425-9) [facility] 12:51:00 Test Item Value Reference Range Interpretation Comments MAGNESIUM (test code = 1195156105) 2.0 mg/dL 1.7-2.4 Lab Interpretation (test code = Normal 75831-8) [facility] WITH [id number] 12:48:00 Test Item Value Reference Range Interpretation Comments WBC (test code = See_Comment H [Automated 6690-2) message] The sy stem which generated this result transmitted reference range : 4.20 - 10.70 10*3/?L. The reference range was not used to interpret this result as normal/abnormal . RBC (test code = See_Comment L [Automated 789-8) message] The sy stem which generated this result transmitted reference range : 4.26 - 5.52 10*6/?L. The reference range was not used to interpret this result as normal/abnormal . HGB (test code = 9.4 g/dL 12.2-16.4 L 718-7) HCT (test code = 27.5 % 38.4-49.3 L 4544-3) MCV (test code = 87.9 fL 81.7-95.6 787-2) MCH (test code = 30.0 pg 26.1-32.7 785-6) MCHC (test code = 34.2 g/dL 31.2-35 786-4) RDW-SD (test code = 39.0 fL 38.5-51.6 56235-4) RDW-CV (test code = 12.0 % 12.1-15.4 L 788-0) PLT (test code = See_Comment H [Automated 777-3) message] The sy stem which generated this result transmitted reference range : 150 - 328 10*3/ ?L. The reference r yen was not used to interpret this result as normal/abnormal . MPV (test code = 9.8 fL 9.8-13 93488-8) NRBC/100 WBC (test See_Comment [Automat ed code = 9155335952) message] The system which generated this result transmitted reference range : 0.0 - 10.0 /100 WBCs. The refer ence range was not u sed to interpret th is result as normal/abnormal . NRBC x10^3 (test code <0.01 See_Comment [Auto mated = 2139288928) message] The s ystem which generated this result transmitted reference range : 10*3/?L. The reference range was not used to interpret this result as normal/abnormal . GRAN MAT (NEUT) % 76.8 % (test code = 770-8) IMM GRAN % (test code 0.80 % = 7260144636) LYMPH % (test code = 13.2 % 736-9) MONO % (test code = 7.5 % 5905-5) EOS % (test code = 1.4 % 713-8) BASO % (test code = 0.3 % 706-2) GRAN MAT x10^3(ANC) 8.74 10*3/uL 1.99-6.95 H (test code = 2025749360) IMM GRAN x10^3 (test 0.09 10*3/uL 0-0.06 H code = 0741498803) LYMPH x10^3 (test code 1.50 10*3/uL 1.09-3.23 = 731-0) MONO x10^3 (test code 0.85 10*3/uL 0.36-1.02 = 742-7) EOS x10^3 (test code = 0.16 10*3/uL 0.06-0.53 711-2) BASO x10^3 (test code 0.03 10*3/uL 0.01-0.09 = 704-7) Lab Interpretation Abnormal (test code = 72177-1) [facility] GLUCOSE (AUTOMATED)2020-07-19 11:23:00 Test Item Value Reference Range Interpretation Comments POCT GLU (test code = 8587275602) 166 mg/dL 70-110 H Lab Interpretation (test code = Abnormal 77609-3) [facility] GLUCOSE (AUTOMATED)2020-07-19 07:56:00 Test Item Value Reference Range Interpretation Comments POCT GLU (test code = 2263382367) 170 mg/dL 70-110 H Lab Interpretation (test code = Abnormal 24510-8) [facility] GLUCOSE (AUTOMATED)2020-07-19 03:12:00 Test Item Value Reference Range Interpretation Comments POCT GLU (test code = 6811675619) 226 mg/dL 70-110 H Lab Interpretation (test code = Abnormal 84012-1) [facility] GLUCOSE (AUTOMATED)2020-07-18 23:02:00 Test Item Value Reference Range Interpretation Comments POCT GLU (test code = 4444673372) 217 mg/dL 70-110 H Lab Interpretation (test code = Abnormal 15452-8) [facility] GLUCOSE (AUTOMATED)2020-07-18 18:44:00 Test Item Value Reference Range Interpretation Comments POCT GLU (test code = 189 mg/dL 70-110 H Notifi ed Provider [id number]) Lab Interpretation (test Abnormal code = 39763-8) [facility] - Draw immediately prior to the 4TH dose, but, no more than 60 minutes before the 4TH dose. 2020-07-18 18:14:00 Test Item Value Reference Range Interpretation Comments VANCO TROUGH (test code 12.3 ug/mL 10-20 = 5381259663) DOMENIC (test code = DOMENIC) Toxic Range: ?>20 ug/mL 15-20 ug/mL is recommended for severe infection or when Vancomycin MARK ANTHONY is greater than or equal to 2. 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 In accordance with CLSI M100 guidelines, susceptibility testing of penicillin and other beta-lactams need not be performed due to the extremely rare nature of non-susceptible isolates. [facility] ([facility]2020-07-18 14:15:00 Test Item Value Reference Range Interpretation Comments POCT GLU (test code = 174 mg/dL 70-110 H Notifi ed Provider [id number]) Lab Interpretation (test Abnormal code = 92880-6) [facility] (NA, K, CL, CO2, GLUCOSE, BUN, CREATININE, CA)2020-07-18 11:13:00 Test Item Value Reference Range Interpretation Comments NA (test code = 134 mmol/L 135-145 L 4376236822) K (test code = 3.8 mmol/L 3.5-5 2067305475) CL (test code = 102 mmol/L 98-108 2512300692) CO2 TOTAL (test code = 26 mmol/L 23-31 1934003815) AGAP (test code = 2-16 6306857951) BUN (test code = 9 mg/dL 7-23 1839745925) GLUCOSE (test code = 191 mg/dL 70-110 H 5285674195) CREATININE (test code = 0.71 mg/dL 0.6-1.25 9747512702) CALCIUM (test code = 8.0 mg/dL 8.6-10.6 L 4709417492) eGFR Calculation mL/min/1.73m2 (Non-) (test code = 1031130802) eGFR Calculation mL/min/1.73m2 () (test code = 7059900737) DOMENIC (test code = DOMENIC) Association of Glomerular Filtration Rate (GFR) and Staging of Kidney Disease* + --+ --+ ------+| GFR (mL/min/1.73 m2) ?| With Kidney Damage ?| ?Without Kidney Damage+ --------+ --------+ +| ?>90 ?| ?Stage one ?| ? Normal ?+ ---+ ---+ -------+| ?60-89 ?| ?Stage two ?| ? Decreased GFR ? + --+ --+ ------+| ?30-59 ?| ?Stage three ?| ? Stage three ? + --+ --+ ------+| ?15-29 ?| ?Stage four ? | ? Stage four ?+ ---+ ---+ -------+| ?<15 (or dialysis) ? ?| ?Stage five ? | ? Stage five ?+ ---+ ---+ -------+ *Each stage assumes the associated GFR level has been in effect for at least three months. ?Stages 1 to 5, with or without kidney disease, indicate chronic kidney disease. Notes: Determination of stages one and two (with eGFR >59mL/min/1.73 m2) requires estimation of kidney damage for at least three months as defined by structural or functional abnormalities of the kidney, manifested by either:Pathological abnormalities or Markers of kidney damage (including abnormalities in the composition of the blood or urine or abnormalities in imaging tests). Lab Interpretation Abnormal (test code = 48999-0) [facility] 11:13:00 Test Item Value Reference Range Interpretation Comments MAGNESIUM (test code = 4297840014) 2.0 mg/dL 1.7-2.4 Lab Interpretation (test code = Normal 25239-8) [facility] WITH [id number] 10:44:00 Test Item Value Reference Range Interpretation Comments WBC (test code = See_Comment H [Automated 0690-2) message] The system which generated this result transmit rony reference range : 4.20 - 10.70 10*3/?L. The reference range was not used to interpret this result as normal/abnormal . RBC (test code = See_Comment L [Automated 799-8) message] The system which generated this result transmit rony reference range : 4.26 - 5.52 10*6/?L. The reference range was not used to interpret this result as normal/abnormal . HGB (test code = 9.8 g/dL 12.2-16.4 L 718-7) HCT (test code = 29.1 % 38.4-49.3 L 4544-3) MCV (test code = 88.2 fL 81.7-95.6 787-2) MCH (test code = 29.7 pg 26.1-32.7 785-6) MCHC (test code = 33.7 g/dL 31.2-35 786-4) RDW-SD (test code = 38.4 fL 38.5-51.6 L 03323-1) RDW-CV (test code = 11.9 % 12.1-15.4 L 788-0) PLT (test code = See_Comment H [Automated 777-3) message] The system which generated this result transmit rony reference range : 150 - 328 10*3/ ?L. The reference range was not u sed to interpret th is result as normal/abnormal . MPV (test code = 9.5 fL 9.8-13 L 74018-1) NRBC/100 WBC (test See_Comment [Automat ed code = 0945152365) message] The system which generated this result transmit rony reference range : 0.0 - 10.0 /100 WBCs. The reference range was not used to interpret this result as normal/abnormal . NRBC x10^3 (test code <0.01 See_Comment [Auto mated = 7124929201) message] The system which generated this result transmit rony reference range : 10*3/?L. The reference range was not used to interpret this result as normal/abnormal . GRAN MAT (NEUT) % 83.1 % (test code = 770-8) IMM GRAN % (test code 0.80 % = 5959995042) LYMPH % (test code = 9.0 % 736-9) MONO % (test code = 6.1 % 5905-5) EOS % (test code = 0.7 % 713-8) BASO % (test code = 0.3 % 706-2) GRAN MAT x10^3(ANC) 13.14 10*3/uL 1.99-6.95 H (test code = 1711561457) IMM GRAN x10^3 (test 0.13 10*3/uL 0-0.06 H code = 7864791509) LYMPH x10^3 (test code 1.43 10*3/uL 1.09-3.23 = 731-0) MONO x10^3 (test code 0.97 10*3/uL 0.36-1.02 = 742-7) EOS x10^3 (test code = 0.11 10*3/uL 0.06-0.53 711-2) BASO x10^3 (test code 0.04 10*3/uL 0.01-0.09 = 704-7) Lab Interpretation Abnormal (test code = 40041-7) [facility] GLUCOSE (AUTOMATED)2020-07-18 10:30:00 Test Item Value Reference Range Interpretation Comments POCT GLU (test code = 4432858817) 188 mg/dL 70-110 H Lab Interpretation (test code = Abnormal 88882-5) [facility] GLUCOSE (AUTOMATED)2020-07-18 06:02:00 Test Item Value Reference Range Interpretation Comments POCT GLU (test code = 3257686829) 199 mg/dL 70-110 H Lab Interpretation (test code = Abnormal 96551-0) [facility] GLUCOSE (AUTOMATED)2020-07-18 01:49:00 Test Item Value Reference Range Interpretation Comments POCT GLU (test code = 3332286779) 222 mg/dL 70-110 H Lab Interpretation (test code = Abnormal 50982-3) [facility] GLUCOSE (AUTOMATED)2020-07-17 22:59:00 Test Item Value Reference Range Interpretation Comments POCT GLU (test code = 7054994014) 229 mg/dL 70-110 H Lab Interpretation (test code = Abnormal 19916-3) [facility] GLUCOSE (AUTOMATED)2020-07-17 21:42:00 Test Item Value Reference Range Interpretation Comments POCT GLU (test code = 4800308119) 218 mg/dL 70-110 H Lab Interpretation (test code = Abnormal 21875-0) [facility] GLUCOSE (AUTOMATED)2020-07-17 18:11:00 Test Item Value Reference Range Interpretation Comments POCT GLU (test code = 7112773973) 164 mg/dL 70-110 H Lab Interpretation (test code = Abnormal 49958-4) [facility] GLUCOSE (AUTOMATED)2020-07-17 13:22:00 Test Item Value Reference Range Interpretation Comments POCT GLU (test code = 4389965837) 125 mg/dL 70-110 H Lab Interpretation (test code = Abnormal 06429-1) [facility] METABOLIC PANEL (NA, K, CL, CO2, GLUCOSE, BUN, CREATININE, CA)2020-07-17 12:08:00 Test Item Value Reference Range Interpretation Comments NA (test code = 132 mmol/L 135-145 L 2382027378) K (test code = 3.8 mmol/L 3.5-5 6198088049) CL (test code = 101 mmol/L 98-108 5912595716) CO2 TOTAL (test code = 24 mmol/L 23-31 4730044053) AGAP (test code = 2-16 5397247400) BUN (test code = 11 mg/dL 7-23 2299348107) GLUCOSE (test code = 145 mg/dL 70-110 H 1243232523) CREATININE (test code = 0.76 mg/dL 0.6-1.25 5360106922) CALCIUM (test code = 8.2 mg/dL 8.6-10.6 L 1821741178) eGFR Calculation mL/min/1.73m2 (Non-) (test code = 9801612769) eGFR Calculation mL/min/1.73m2 () (test code = 5073225623) DOMENIC (test code = DOMENIC) Association of Glomerular Filtration Rate (GFR) and Staging of Kidney Disease* + --+ --+ ------+| GFR (mL/min/1.73 m2) ?| With Kidney Damage ?| ?Without Kidney Damage+ --------+ --------+ +| ?>90 ?| ?Stage one ?| ? Normal ?+ ---+ ---+ -------+| ?60-89 ?| ?Stage two ?| ? Decreased GFR ? + --+ --+ ------+| ?30-59 ?| ?Stage three ?| ? Stage three ? + --+ --+ ------+| ?15-29 ?| ?Stage four ? | ? Stage four ?+ ---+ ---+ -------+| ?<15 (or dialysis) ? ?| ?Stage five ? | ? Stage five ?+ ---+ ---+ -------+ *Each stage assumes the associated GFR level has been in effect for at least three months. ?Stages 1 to 5, with or without kidney disease, indicate chronic kidney disease. Notes: Determination of stages one and two (with eGFR >59mL/min/1.73 m2) requires estimation of kidney damage for at least three months as defined by structural or functional abnormalities of the kidney, manifested by either:Pathological abnormalities or Markers of kidney damage (including abnormalities in the composition of the blood or urine or abnormalities in imaging tests). Lab Interpretation Abnormal (test code = 66962-0) [facility] 12:08:00 Test Item Value Reference Range Interpretation Comments MAGNESIUM (test code = 0868291843) 2.0 mg/dL 1.7-2.4 Lab Interpretation (test code = Normal 37309-0) [facility] WITH [id number] 11:49:00 Test Item Value Reference Range Interpretation Comments WBC (test code = See_Comment H [Automated 6690-2) message] The system which generated this result transmit rony reference range : 4.20 - 10.70 10*3/?L. The reference range was not used to interpret this result as normal/abnormal . RBC (test code = See_Comment L [Automated 789-8) message] The system which generated this result transmit rony reference range : 4.26 - 5.52 10*6/?L. The reference range was not used to interpret this result as normal/abnormal . HGB (test code = 9.7 g/dL 12.2-16.4 L 718-7) HCT (test code = 28.4 % 38.4-49.3 L 4544-3) MCV (test code = 89.0 fL 81.7-95.6 787-2) MCH (test code = 30.4 pg 26.1-32.7 785-6) MCHC (test code = 34.2 g/dL 31.2-35 786-4) RDW-SD (test code = 38.4 fL 38.5-51.6 L 85998-3) RDW-CV (test code = 11.9 % 12.1-15.4 L 788-0) PLT (test code = See_Comment H [Automated 777-3) message] The system which generated this result transmit rony reference range : 150 - 328 10*3/ ?L. The reference range was not u sed to interpret th is result as normal/abnormal . MPV (test code = 9.9 fL 9.8-13 80810-2) NRBC/100 WBC (test See_Comment [Automat ed code = 2064661218) message] The system which generated this result transmit rony reference range : 0.0 - 10.0 /100 WBCs. The reference range was not used to interpret this result as normal/abnormal . NRBC x10^3 (test code <0.01 See_Comment [Auto mated = 6068412662) message] The system which generated this result transmit rony reference range : 10*3/?L. The reference range was not used to interpret this result as normal/abnormal . GRAN MAT (NEUT) % 83.0 % (test code = 770-8) IMM GRAN % (test code 0.80 % = 0446355515) LYMPH % (test code = 10.4 % 736-9) MONO % (test code = 5.3 % 5905-5) EOS % (test code = 0.3 % 713-8) BASO % (test code = 0.2 % 706-2) GRAN MAT x10^3(ANC) 14.22 10*3/uL 1.99-6.95 H (test code = 7338624176) IMM GRAN x10^3 (test 0.14 10*3/uL 0-0.06 H code = 6800099760) LYMPH x10^3 (test code 1.78 10*3/uL 1.09-3.23 = 731-0) MONO x10^3 (test code 0.91 10*3/uL 0.36-1.02 = 742-7) EOS x10^3 (test code = 0.06 10*3/uL 0.06-0.53 711-2) BASO x10^3 (test code 0.04 10*3/uL 0.01-0.09 = 704-7) Lab Interpretation Abnormal (test code = 11429-1) [facility] GLUCOSE (AUTOMATED)2020-07-17 10:20:00 Test Item Value Reference Range Interpretation Comments POCT GLU (test code = 4356974080) 131 mg/dL 70-110 H Lab Interpretation (test code = Abnormal 92304-3) [facility] GLUCOSE (AUTOMATED)2020-07-17 06:05:00 Test Item Value Reference Range Interpretation Comments POCT GLU (test code = 9756344797) 157 mg/dL 70-110 H Lab Interpretation (test code = Abnormal 67174-8) [facility] GLUCOSE (AUTOMATED)2020-07-17 02:20:00 Test Item Value Reference Range Interpretation Comments POCT GLU (test code = 7745575723) 208 mg/dL 70-110 H Lab Interpretation (test code = Abnormal 82336-1) [facility] GLUCOSE (AUTOMATED)2020-07-16 22:55:00 Test Item Value Reference Range Interpretation Comments POCT GLU (test code = 6035395346) 221 mg/dL 70-110 H Lab Interpretation (test code = Abnormal 19328-9) [facility] [id number] 21:27:00COVID DMT InterpretationInterpretation/Recommendations: Molecular NAAT Tests for Active Infection with the SARS-CoV-2 Virus: This result indicates that the patient has tested negative on one occasion for the SARS-CoV-2 virus that causes COVID-19 illness. This most likely indicates that the patient does not have an active infection with the SARS-CoV-2 virus. However, infection is not completely ruled out as the false negative rate for molecular NAAT testing using a nasopharyngeal sample can be up to 30%, mostly dependent on the timing of sample collection in relation to illness onset and any deficiencies in sampling techniques. If the patient has symptoms concerning for COVID-19 illness, a repeat NAAT test (PCR, Rapid ID Now, etc.) should be performed, at which time the SARS-CoV-2 virus - if present - may have reached a detectable viral load (usually peaking by the end of the first week of symptoms). Tests for IgM and/or IgG Antibodies to SARS-CoV-2 Virus: Testing for IgM and IgG antibodies 1-3weeks after illness onset will indicate whether the patient has produced antibodies to the virus. Atthis time, it is not known if the production of antibodies - specifically IgG antibodies - indicateswhether the patient is immune to future infections with the SARS-CoV-2 virus. ? ? Interpretation Result Comments:These interpretation comments are based upon all COVID-19 testing the patient has had at [facility], including molecular NAAT testing (more commonly known as PCR testing and Rapid ID Now testing) and antibody testing. It does not take into account any testing that a patient has had outside of the [facility] medical record.[facility] SERVICESCOVID GynbarpITAR-IxU-1 Rapid ID NOW (no units) ? ? Date ?Value ? 07/14/2020 ? Not Detected ? [facility] Van[facility] Trough Level - Draw within 30 minutes prior to 4TH dose.2020-07-16 21:20:00 Test Item Value Reference Range Interpretation Comments VANCO TROUGH (test code 8.2 ug/mL 10-20 L = 7258174446) DOMENIC (test code = DOMENIC) Toxic Range: ?>20 ug/mL 15-20 ug/mL is recommended for severe infection or when Vancomycin MARK ANTHONY is greater than or equal to 2. Lab Interpretation (test Abnormal code = 01357-3) [facility] GLUCOSE (AUTOMATED)2020-07-16 18:59:00 Test Item Value Reference Range Interpretation Comments POCT GLU (test code = 8359187472) 217 mg/dL 70-110 H Lab Interpretation (test code = Abnormal 54590-8) [facility] GLUCOSE (AUTOMATED)2020-07-16 15:15:00 Test Item Value Reference Range Interpretation Comments POCT GLU (test code = 0120026732) 125 mg/dL 70-110 H Lab Interpretation (test code = Abnormal 80572-9) [facility] [id number] 11:41:00 Test Item Value Reference Range Interpretation Comments WBC (test code = See_Comment H [Automated 6690-2) message] The system which generated this result transmit rony reference range : 4.20 - 10.70 10*3/?L. The reference range was not used to interpret this result as normal/abnormal . RBC (test code = See_Comment L [Automated 789-8) message] The system which generated this result transmit rony reference range : 4.26 - 5.52 10*6/?L. The reference range was not used to interpret this result as normal/abnormal . HGB (test code = 10.2 g/dL 12.2-16.4 L 718-7) HCT (test code = 30.3 % 38.4-49.3 L 4544-3) MCV (test code = 89.1 fL 81.7-95.6 787-2) MCH (test code = 30.0 pg 26.1-32.7 785-6) MCHC (test code = 33.7 g/dL 31.2-35 786-4) RDW-SD (test code = 39.3 fL 38.5-51.6 38018-8) RDW-CV (test code = 12.1 % 12.1-15.4 788-0) PLT (test code = See_Comment H [Automated 777-3) message] The system which generated this result transmit rony reference range : 150 - 328 10*3/ ?L. The reference range was not u sed to interpret th is result as normal/abnormal . MPV (test code = 9.7 fL 9.8-13 L 28995-2) NRBC/100 WBC (test See_Comment [Automat ed code = 7921548033) message] The system which generated this result transmit rony reference range : 0.0 - 10.0 /100 WBCs. The reference range was not used to interpret this result as normal/abnormal . NRBC x10^3 (test code <0.01 See_Comment [Auto mated = 4675127884) message] The system which generated this result transmit rony reference range : 10*3/?L. The reference range was not used to interpret this result as normal/abnormal . GRAN MAT (NEUT) % 82.1 % (test code = 770-8) IMM GRAN % (test code 0.60 % = 0713927888) LYMPH % (test code = 10.8 % 736-9) MONO % (test code = 6.1 % 5905-5) EOS % (test code = 0.2 % 713-8) BASO % (test code = 0.2 % 706-2) GRAN MAT x10^3(ANC) 15.69 10*3/uL 1.99-6.95 H (test code = 8448424553) IMM GRAN x10^3 (test 0.11 10*3/uL 0-0.06 H code = 7077005397) LYMPH x10^3 (test code 2.07 10*3/uL 1.09-3.23 = 731-0) MONO x10^3 (test code 1.17 10*3/uL 0.36-1.02 H = 742-7) EOS x10^3 (test code = 0.04 10*3/uL 0.06-0.53 L 711-2) BASO x10^3 (test code 0.04 10*3/uL 0.01-0.09 = 704-7) BANDS (test code = Increased A 9931846713) Lab Interpretation Abnormal (test code = 55992-6) [facility] METABOLIC PANEL (NA, K, CL, CO2, GLUCOSE, BUN, CREATININE, CA)2020-07-16 11:41:00 Test Item Value Reference Range Interpretation Comments NA (test code = 131 mmol/L 135-145 L 1104658398) K (test code = 4.0 mmol/L 3.5-5 3439935411) CL (test code = 99 mmol/L 98-108 9070444362) CO2 TOTAL (test code = 22 mmol/L 23-31 L 2692453617) AGAP (test code = 2-16 8132769965) BUN (test code = 14 mg/dL 7-23 9680638373) GLUCOSE (test code = 147 mg/dL 70-110 H 3353085636) CREATININE (test code = 0.81 mg/dL 0.6-1.25 9324968698) CALCIUM (test code = 8.5 mg/dL 8.6-10.6 L 3387584989) eGFR Calculation mL/min/1.73m2 (Non-) (test code = 7761590756) eGFR Calculation mL/min/1.73m2 () (test code = 1181443992) DOMENIC (test code = DOMENIC) Association of Glomerular Filtration Rate (GFR) and Staging of Kidney Disease* + --+ --+ ------+| GFR (mL/min/1.73 m2) ?| With Kidney Damage ?| ?Without Kidney Damage+ --------+ --------+ +| ?>90 ?| ?Stage one ?| ? Normal ?+ ---+ ---+ -------+| ?60-89 ?| ?Stage two ?| ? Decreased GFR ? + --+ --+ ------+| ?30-59 ?| ?Stage three ?| ? Stage three ? + --+ --+ ------+| ?15-29 ?| ?Stage four ? | ? Stage four ?+ ---+ ---+ -------+| ?<15 (or dialysis) ? ?| ?Stage five ? | ? Stage five ?+ ---+ ---+ -------+ *Each stage assumes the associated GFR level has been in effect for at least three months. ?Stages 1 to 5, with or without kidney disease, indicate chronic kidney disease. Notes: Determination of stages one and two (with eGFR >59mL/min/1.73 m2) requires estimation of kidney damage for at least three months as defined by structural or functional abnormalities of the kidney, manifested by either:Pathological abnormalities or Markers of kidney damage (including abnormalities in the composition of the blood or urine or abnormalities in imaging tests). Lab Interpretation Abnormal (test code = 57968-3) [facility] 11:41:00 Test Item Value Reference Range Interpretation Comments MAGNESIUM (test code = 7904713827) 2.1 mg/dL 1.7-2.4 Lab Interpretation (test code = Normal 67618-4) [facility] GLUCOSE (AUTOMATED)2020-07-16 10:04:00 Test Item Value Reference Range Interpretation Comments POCT GLU (test code = 4013531577) 140 mg/dL 70-110 H Lab Interpretation (test code = Abnormal 46856-9) [facility] GLUCOSE (AUTOMATED)2020-07-16 06:29:00 Test Item Value Reference Range Interpretation Comments POCT GLU (test code = 6951003960) 178 mg/dL 70-110 H Lab Interpretation (test code = Abnormal 01738-8) [facility] GLUCOSE (AUTOMATED)2020-07-16 02:13:00 Test Item Value Reference Range Interpretation Comments POCT GLU (test code = 5935740333) 214 mg/dL 70-110 H Lab Interpretation (test code = Abnormal 10606-0) [facility] GLUCOSE (AUTOMATED)2020-07-15 23:47:00 Test Item Value Reference Range Interpretation Comments POCT GLU (test code = 7505310114) 161 mg/dL 70-110 H Lab Interpretation (test code = Abnormal 88772-5) [facility] GLUCOSE (AUTOMATED)2020-07-15 19:55:00 Test Item Value Reference Range Interpretation Comments POCT GLU (test code = 9250393635) 138 mg/dL 70-110 H Lab Interpretation (test code = Abnormal 71321-6) [facility] [id number] 18:59:00 Test Item Value Reference Range Interpretation Comments CRP (test code = 2974763675) 35.7 mg/dL <0.8 H Lab Interpretation (test code = Abnormal 60843-4) [facility] GLUCOSE (AUTOMATED)2020-07-15 18:10:00 Test Item Value Reference Range Interpretation Comments POCT GLU (test code = 5811482018) 156 mg/dL 70-110 H Lab Interpretation (test code = Abnormal 59779-0) [facility] FOOT 3+ VW [id number] 16:47:54 1. ?No fracture or foreign body. There is extensive soft tissue gaspredominantly in the plantar forefoot. RL: 1105 HISTORY: ?left foot puncture wound Left foot puncture wound COMPARISON: ?None FINDINGS: 3 views left foot and ankle. There isextensive soft tissue gas. The gas predominantly in the plantarsurface of the foot. No fracture or foreign body seen. [place], Radiant Results Inft User - 07/15/2020 10:49 AM CSTHISTORY: left foot puncture wound Left foot puncture woundCOMPARISON: NoneFINDINGS:3 views left foot and ankle.There is extensive soft tissue gas. The gas predominantly in the plantarsurface of the foot. No fracture or foreignbody seen.IMPRESSION1. No fracture or foreign body. There is extensive soft tissue gaspredominantlyin the plantar forefoot.RL: 1105 [facility] VW [id number] 16:47:54 1. ?No fracture or foreign body. There is extensive soft tissue gaspredominantly in the plantar forefoot. RL: 1105 HISTORY: ?left foot puncture wound Left foot puncture wound COMPARISON: ?None FINDINGS: 3 views left foot and ankle. There isextensive soft tissue gas. The gas predominantly in the plantarsurface of the foot. No fracture or foreign body seen. [place], Radiant Results Inft User - 07/15/2020 10:49 AM CSTHISTORY: left foot puncture wound Left foot puncture woundCOMPARISON: NoneFINDINGS:3 views left foot and ankle.There is extensive soft tissue gas. The gas predominantly in the plantarsurface of the foot. No fracture or foreignbody seen.IMPRESSION1. No fracture or foreign body. There is extensive soft tissue gaspredominantlyin the plantar forefoot.RL: 1105 [facility] W [id number] 16:02:25 Moderate to severe secondary osteoarthrosis of the knee. Large volume knee effusion with synovial thickening, an underlyingcrystalline/inflammatory arthropathy may be present and should becorrelated clinically. An indolent infectious process is an alternativeconsideration. No evidence of osteomyelitis or soft tissue gas extension in the lower leg. Preliminary Report Dictated by Resident: Deepa barton I, Brandan Chua MD., have reviewed this study and agree with the abovereport.Exam: CT TIBIA FIBULA LEFT W CONTRAST HISTORY: concern for nec fasc vs cellulitis COMPARISON: None TECHNIQUE: Axial CT imaging through the left tibia and fibula was performedwithout IV contrast. Coronal and sagittal refor mats were obtained andreviewed. Separate 3-D reconstructions are submitted for evaluation. FINDINGS:There is moderate to severe tricompartmental joint space narrowing,marginal osteophytosis and subchondral sclerosis of knee joint;qtpw-vx-zihw contact at the medial compartment is seen with genu varusde formity. Corticated osseous bodies are seen over the anteromedial andanterolateral joint line. Hypertrophy of the tibial spines is present alongwith a Garcia knob. Scattered subcentimeter bone islandsare seen at theposterior lateral femoral condyle. There is large volume joint effusionwith extensivesynovial hypertrophy. A loculated component of the effusionis seen over the anteromedial joint line.Scattered vascular calcifications are present more pronounced in the smallvessels of the foot. Posterior calcaneal enthesophyte is seen. Skinthickening with mild subcutaneous edema is noted around the ankle morediscernible in the posterolateral surface. No evidence of focal bonedestruction/osteopenia,periosteal reaction. [facility], Radiant Results Inft User - 07/15/2020 10:03 AM CSTExam: CT TIBIA FIBULALEFT W CONTRASTHISTORY: concern for nec fasc vs cellulitisCOMPARISON: NoneTECHNIQUE: Axial CT imaging through the left tibia and fibula was performedwithout IV contrast. Coronal and sagittal reformats were obtained andreviewed. Separate 3-D reconstructions are submitted for evaluation.FINDINGS:There is moderate to severe tricompartmental joint space narrowing,marginal osteophytosis and subchondral sclerosis of knee joint;agnq-zo-toxn contact at the medial compartment is seen with genu varusdeformity. Corticated osseous bodies are seen over the anteromedial andanterolateral joint line. Hypertrophy of the tibial spines is present alongwith a Garcia knob. Scattered subcentimeter bone islands are seen at theposterior lateral femoral condyle. There is large volume joint effusionwith extensive synovial hypertrophy. A loculated component of the effusionis seen over the anteromedial joint line.Scattered vascular calcifications are present more pronounced in the smallvessels of the foot. Posterior calcaneal enthesophyte is seen. Skinthickening with mild subcutaneous edema is noted around the ankle morediscernible in the posterolateral surface. No evidence of focal bonedestruction/osteopenia, periosteal reaction. IMPRESSIONModerate to severe secondary osteoarthrosis of the knee. Large volume knee effusion with synovial thickening, an underlyingcrystalline/inflammatory arthropathy may be present and should becorrelated clinically. An indolent infectious process is an alternativeconsideration.No evidence of osteomyelitis or soft tissue gas extension in the lower leg.Preliminary Report Dictated by Resident: Deepa Shetty, Brandan Chua MD., have reviewed this study and agree with the abovereport.[facility] [id number] 15:56:03 Plantar skin defect with extensive soft tissue gas extending into the deepplantar fascial planes which may relate to extension of gas through theplantar forefoot skin defect and/or superimposed gas-forming infection. Findings of the report were telephonically conveyed to Dr. Dickerson withread back at 9:05 AM (07/15/2020). Preliminary Report Dictated by Resident: Deeap Cason I, Brandan Chua MD., have reviewed this study and agree with the abovereport.Exam: CT FOOT LEFT W CONTRAST HISTORY: concern for necrotizing fascitis vs cellulitis and abscess of foot COMPARISON: None TECHNIQUE: Axial CT imaging through the left foot was performed without IVcontrast. Coronal and sagittal reformats were obtained and reviewed. FINDINGS: There is extensive soft tissue gas extending into the subcutaneous fat ofthe plantar forefoot with a focal skin defect at the level of the plantarlateral first MTP joint level. Soft tissue gas extends into the plantarforefoot musculature with interdigitation of gas through the firstintermetatarsal space with gas tracking more proximally within the secondmetatarsal extensor tendon to the level of the midfoot. ?There ishyperdense collection measuring 2.1 cm below the third and the fourth MTPjoint may represent hypertrophic scar or adventitial bursa formation. Thereis extensiv e soft tissue stranding, skin thickening at the plantar footextending up to the mid ankle. No bone destruction or periosteal reactionseen. No acute fracture or dislocation. Mild joint space narrowing andsubchondral sclerosis at the intertarsal joints. [facility], Radiant Results Inft User - 07/15/2020 9:57AM CSTExam: CT FOOT LEFT W CONTRASTHISTORY: concern for necrotizing fascitis vs cellulitis and abscess of footCOMPARISON: NoneTECHNIQUE: Axial CT imaging through the left foot was performed without IVcontrast. Coronal and sagittal reformats were obtained and reviewed.FINDINGS:There is extensive soft tissue gas extending into the subcutaneous fat ofthe plantar forefoot with a focal skin defect at the level of the plantarlateral first MTP joint level. Soft tissue gas extends into the plantarforefoot musculature with interdigitation of gas through the firstintermetatarsal space with gas tracking more proximally within the secondmetatarsal extensor tendon to the level of the midfoot. There ishyperdens e collection measuring 2.1 cm below the third and the fourth MTPjoint may represent hypertrophic scar or adventitial bursa formation. Thereis extensive soft tissue stranding, skin thickening at the plantar footextending up to the mid ankle. No bone destruction or periosteal reactionseen. No acute fracture or dislocation. Mild joint space narrowing andsubchondral sclerosis at the intertarsal joints.IMPRESSIONPlantar skin defect with extensive soft tissue gas extending into the deepplantar fascial planes which may relate to extension of gas through theplantar forefoot skin defect and/or superimposed gas-forming infection.Findings of the report were telephonically conveyed to Dr. Dickerson withread back at 9:05 AM (07/15/2020).Preliminary Report Dictated by Resident: Deepa Shetty, Brandan Chua MD., have reviewed this study and agree with the abovereport.[facility] (NA, K, CL, CO2, GLUCOSE, BUN, CREATININE, CA)2020-07-15 14:52:00 Test Item Value Reference Range Interpretation Comments NA (test code = 131 mmol/L 135-145 L 4293336357) K (test code = 4.1 mmol/L 3.5-5 6998775763) CL (test code = 98 mmol/L 98-108 7747047712) CO2 TOTAL (test code = 20 mmol/L 23-31 L 1367565463) AGAP (test code = 2-16 7099658146) BUN (test code = 14 mg/dL 7-23 9340276179) GLUCOSE (test code = 172 mg/dL 70-110 H 4979963008) CREATININE (test code = 0.82 mg/dL 0.6-1.25 6841504849) CALCIUM (test code = 8.9 mg/dL 8.6-10.6 8482066827) eGFR Calculation mL/min/1.73m2 (Non-) (test code = 6693660891) eGFR Calculation mL/min/1.73m2 () (test code = 1860160911) DOMENIC (test code = DOMENIC) Association of Glomerular Filtration Rate (GFR) and Staging of Kidney Disease* + --+ --+ ------+| GFR (mL/min/1.73 m2) ?| With Kidney Damage ?| ?Without Kidney Damage+ --------+ --------+ +| ?>90 ?| ?Stage one ?| ? Normal ?+ ---+ ---+ -------+| ?60-89 ?| ?Stage two ?| ? Decreased GFR ? + --+ --+ ------+| ?30-59 ?| ?Stage three ?| ? Stage three ? + --+ --+ ------+| ?15-29 ?| ?Stage four ? | ? Stage four ?+ ---+ ---+ -------+| ?<15 (or dialysis) ? ?| ?Stage five ? | ? Stage five ?+ ---+ ---+ -------+ *Each stage assumes the associated GFR level has been in effect for at least three months. ?Stages 1 to 5, with or without kidney disease, indicate chronic kidney disease. Notes: Determination of stages one and two (with eGFR >59mL/min/1.73 m2) requires estimation of kidney damage for at least three months as defined by structural or functional abnormalities of the kidney, manifested by either:Pathological abnormalities or Markers of kidney damage (including abnormalities in the composition of the blood or urine or abnormalities in imaging tests). Lab Interpretation Abnormal (test code = 36296-5) [facility] 14:52:00 Test Item Value Reference Range Interpretation Comments MAGNESIUM (test code = 5629683331) 2.2 mg/dL 1.7-2.4 Lab Interpretation (test code = Normal 94850-2) [facility]field[facility] (Total Cholesterol, Triglycerides, HDL) - [id number] 14:52:00 Test Item Value Reference Range Interpretation Comments CHOL (test code = 153 mg/dL 120-200 3873338912) HDL (test code = 14 mg/dL >40 L 9253900379) HDLC RATIO (test code = See_Comment H [Au tomated message] 1759319324) The system [employer] generated this result transmit rony reference range : <=5.0. The refe rence range was not u sed to interpret th is result as normal/abnormal . TRIG (test code = 140 mg/dL 30-170 1500665966) LDL CHOL (test code = 111 mg/dL See_Comment [Auto mated message] 12361-3) The system ic h generated this result transmit rony reference range : <=160. The refe rence range was not u sed to interpret th is result as normal/abnormal . VLDL (test code = 28 mg/dL 5-60 8707124589) Lab Interpretation (test Abnormal code = 20480-4) [facility]2020-07-15 14:26:00 Test Item Value Reference Range Interpretation Comments POCT GLU (test code = 7090790969) 171 mg/dL 70-110 H Lab Interpretation (test code = Abnormal 64602-2) [facility] WITH [id number] 11:51:00 Test Item Value Reference Range Interpretation Comments WBC (test code = See_Comment H [Automated 0890-2) message] The system which generated this result transmit rony reference range : 4.20 - 10.70 10*3/?L. The reference range was not used to interpret this result as normal/abnormal . RBC (test code = See_Comment L [Automated 789-8) message] The system which generated this result transmit rony reference range : 4.26 - 5.52 10*6/?L. The reference range was not used to interpret this result as normal/abnormal . HGB (test code = 11.6 g/dL 12.2-16.4 L 718-7) HCT (test code = 34.3 % 38.4-49.3 L 4544-3) MCV (test code = 88.6 fL 81.7-95.6 787-2) MCH (test code = 30.0 pg 26.1-32.7 785-6) MCHC (test code = 33.8 g/dL 31.2-35 786-4) RDW-SD (test code = 38.3 fL 38.5-51.6 L 85946-6) RDW-CV (test code = 11.8 % 12.1-15.4 L 788-0) PLT (test code = See_Comment H [Automated 777-3) message] The system which generated this result transmit rony reference range : 150 - 328 10*3/ ?L. The reference range was not u sed to interpret th is result as normal/abnormal . MPV (test code = 10.4 fL 9.8-13 80023-7) NRBC/100 WBC (test See_Comment [Automat ed code = 6810365780) message] The system which generated this result transmit rony reference range : 0.0 - 10.0 /100 WBCs. The reference range was not used to interpret this result as normal/abnormal . NRBC x10^3 (test code <0.01 See_Comment [Auto mated = 4308907245) message] The system which generated this result transmit rony reference range : 10*3/?L. The reference range was not used to interpret this result as normal/abnormal . GRAN MAT (NEUT) % 79.7 % (test code = 770-8) IMM GRAN % (test code 0.60 % = 3848625103) LYMPH % (test code = 12.1 % 736-9) MONO % (test code = 6.9 % 5905-5) EOS % (test code = 0.4 % 713-8) BASO % (test code = 0.3 % 706-2) GRAN MAT x10^3(ANC) 11.56 10*3/uL 1.99-6.95 H (test code = 5865556293) IMM GRAN x10^3 (test 0.08 10*3/uL 0-0.06 H code = 5853202261) LYMPH x10^3 (test code 1.76 10*3/uL 1.09-3.23 = 731-0) MONO x10^3 (test code 1.00 10*3/uL 0.36-1.02 = 742-7) EOS x10^3 (test code = 0.06 10*3/uL 0.06-0.53 711-2) BASO x10^3 (test code 0.04 10*3/uL 0.01-0.09 = 704-7) Lab Interpretation Abnormal (test code = 06013-7) [facility] GLUCOSE (AUTOMATED)2020-07-15 10:33:00 Test Item Value Reference Range Interpretation Comments POCT GLU (test code = 8210200568) 163 mg/dL 70-110 H Lab Interpretation (test code = Abnormal 89818-7) [facility] GLUCOSE (AUTOMATED)2020-07-15 06:34:00 Test Item Value Reference Range Interpretation Comments POCT GLU (test code = 1588811695) 257 mg/dL 70-110 H Lab Interpretation (test code = Abnormal 26600-8) [facility] GLUCOSE (AUTOMATED)2020-07-15 02:51:00 Test Item Value Reference Range Interpretation Comments POCT GLU (test code = 0662670705) 305 mg/dL 70-110 H Lab Interpretation (test code = Abnormal 43921-7) [facility] [id number] 02:15:00 Test Item Value Reference Range Interpretation Comments ESR (test code = See_Comment H [Automated message] 4405700129) The system [employer] generated this result transmitted ref erence range: 0 - 10 m m/HR. The reference r yen was not used to interpret this result as normal/abnor mal. Lab Interpretation (test Abnormal code = 10936-3) [facility]OS[facility]GLOBIN (A1C)2020-07-15 00:52:00 Test Item Value Reference Range Interpretation Comments HGB A1C (test code = 13.2 % 4-6 H 4548-4) DOMENIC (test code = DOMENIC) %A1C (NGSP) Interpretation (ADA)4.8-5.6 ? ? Normal or (Non-Diabetic Range)5.7-6.4 ? ? Increased Risk (Pre-Diabetic)>6.5 ?Diabetes Indicated Lab Interpretation Abnormal (test code = 80138-8) [facility] GLUCOSE (AUTOMATED)2020-07-14 23:45:00 Test Item Value Reference Range Interpretation Comments POCT GLU (test code = 4764757999) 190 mg/dL 70-110 H Lab Interpretation (test code = Abnormal 47536-4) [facility] (ID NOW RAPID TESTING)2020-07-14 16:54:00 Test Item Value Reference Range Interpretation Comments SARS-CoV-2 Rapid ID NOW Not Detected Not Detected (test code = 71411-5) DOMENIC (test code = DOMENIC) ID NOW COVID-19 Assay is an isothermal nucleic acid amplification test intended for the qualitative detection of nucleic acid from SARS-CoV-2 viral RNA in nasopharyngeal (PRESIDENT AND CH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 It is used under Emergency Use Authorization (EUA) by FDA. The limit of detection (LOD) of the assay is 125 Genome Equivalents/mL. A positive result is indicative of the presence of SARS-CoV-2 RNA. ?Clinical correlation with patient history and other diagnostic information is necessary to determine patient infection status. A negative (Not Detected) result does not preclude SARS-CoV-2 infection. In patients with clinical symptoms and other tests that are consistent with SARS-CoV-2 infection, negative results should be treated as presumptive negative and a new specimen should be tested with alternative PCR molecular test. Invalid: Please collect a new specimen for repeat patient testing if clinically indicated. Lab Interpretation Normal (test code = 82805-7) [facility] METABOLIC PANEL (NA, K, CL, CO2, GLUCOSE, BUN, CREATININE, CA)2020-07-14 16:53:00 Test Item Value Reference Range Interpretation Comments NA (test code = 131 mmol/L 135-145 L 8183883831) K (test code = 4.4 mmol/L 3.5-5 4945163031) CL (test code = 96 mmol/L 98-108 L 7845606735) CO2 TOTAL (test code = 21 mmol/L 23-31 L 6773370665) AGAP (test code = 2-16 2517351635) BUN (test code = 16 mg/dL 7-23 0008334897) GLUCOSE (test code = 252 mg/dL 70-110 H 7721143022) CREATININE (test code = 0.91 mg/dL 0.6-1.25 3479993947) CALCIUM (test code = 9.0 mg/dL 8.6-10.6 2942742349) eGFR Calculation mL/min/1.73m2 (Non-) (test code = 7329472391) eGFR Calculation mL/min/1.73m2 () (test code = 8496705151) DOMENIC (test code = DOMENIC) Association of Glomerular Filtration Rate (GFR) and Staging of Kidney Disease* + --+ --+ ------+| GFR (mL/min/1.73 m2) ?| With Kidney Damage ?| ?Without Kidney Damage+ --------+ --------+ +| ?>90 ?| ?Stage one ?| ? Normal ?+ ---+ ---+ -------+| ?60-89 ?| ?Stage two ?| ? Decreased GFR ? + --+ --+ ------+| ?30-59 ?| ?Stage three ?| ? Stage three ? + --+ --+ ------+| ?15-29 ?| ?Stage four ? | ? Stage four ?+ ---+ ---+ -------+| ?<15 (or dialysis) ? ?| ?Stage five ? | ? Stage five ?+ ---+ ---+ -------+ *Each stage assumes the associated GFR level has been in effect for at least three months. ?Stages 1 to 5, with or without kidney disease, indicate chronic kidney disease. Notes: Determination of stages one and two (with eGFR >59mL/min/1.73 m2) requires estimation of kidney damage for at least three months as defined by structural or functional abnormalities of the kidney, manifested by either:Pathological abnormalities or Markers of kidney damage (including abnormalities in the composition of the blood or urine or abnormalities in imaging tests). Lab Interpretation Abnormal (test code = 43689-7) [facility] WITH [id number] 16:42:00 Test Item Value Reference Range Interpretation Comments WBC (test code = See_Comment H [Automated 6690-2) message] The system which generated this result transmit rony reference range : 4.20 - 10.70 10*3/?L. The reference range was not used to interpret this result as normal/abnormal . RBC (test code = See_Comment L [Automated 789-8) message] The system which generated this result transmit rony reference range : 4.26 - 5.52 10*6/?L. The reference range was not used to interpret this result as normal/abnormal . HGB (test code = 11.8 g/dL 12.2-16.4 L 718-7) HCT (test code = 34.2 % 38.4-49.3 L 4544-3) MCV (test code = 88.6 fL 81.7-95.6 787-2) MCH (test code = 30.6 pg 26.1-32.7 785-6) MCHC (test code = 34.5 g/dL 31.2-35 786-4) RDW-SD (test code = 37.9 fL 38.5-51.6 L 95457-1) RDW-CV (test code = 11.8 % 12.1-15.4 L 788-0) PLT (test code = See_Comment H [Automated 777-3) message] The system which generated this result transmit rony reference range : 150 - 328 10*3/ ?L. The reference range was not u sed to interpret th is result as normal/abnormal . MPV (test code = 9.9 fL 9.8-13 93463-1) NRBC/100 WBC (test See_Comment [Automat ed code = 1186681128) message] The system which generated this result transmit rony reference range : 0.0 - 10.0 /100 WBCs. The reference range was not used to interpret this result as normal/abnormal . NRBC x10^3 (test code <0.01 See_Comment [Auto mated = 2907039836) message] The system which generated this result transmit rony reference range : 10*3/?L. The reference range was not used to interpret this result as normal/abnormal . GRAN MAT (NEUT) % 82.4 % (test code = 770-8) IMM GRAN % (test code 0.90 % = 6584514589) LYMPH % (test code = 10.6 % 736-9) MONO % (test code = 5.7 % 5905-5) EOS % (test code = 0.2 % 713-8) BASO % (test code = 0.2 % 706-2) GRAN MAT x10^3(ANC) 13.88 10*3/uL 1.99-6.95 H (test code = 2366360772) IMM GRAN x10^3 (test 0.16 10*3/uL 0-0.06 H code = 0268183790) LYMPH x10^3 (test code 1.79 10*3/uL 1.09-3.23 = 731-0) MONO x10^3 (test code 0.96 10*3/uL 0.36-1.02 = 742-7) EOS x10^3 (test code = 0.03 10*3/uL 0.06-0.53 L 711-2) BASO x10^3 (test code 0.04 10*3/uL 0.01-0.09 = 704-7) Lab Interpretation Abnormal (test code = 69335-1) [facility] Whole [id number] 16:32:00 Test Item Value Reference Range Interpretation Comments LACTIC ACID (test code = 1.76 mmol/L 0.5-2.2 4544202163) Lab Interpretation (test code = Normal 27928-0) [facility]"
[2021-10-23 09:13] LABS: Absolute Lymphocytes (CBC) 1.8 K/uL (0.7-4.9); Hematocrit 37.9 % (39.6-49.0); Lymphocytes % 20.1 % (15.3-44.8); RBC Red Blood Cell Count 4.29 M/uL (4.33-5.43)
[2021-10-23 09:14] LABS: Protime INR 1.05
--- NOTE | 2021-10-23 09:23 | RAD REPORT ---
EXAM DESCRIPTION: Kathleen Single View10/23/2021 9:10 am CLINICAL HISTORY: Cough COMPARISON: 2019 FINDINGS: The lungs appear clear of acute infiltrate. The heart is normal size IMPRESSION: No acute abnormalities displayed
[2021-10-23 09:31] LABS: Albumin 3.6 g/dL (3.4-5.0); Bilirubin Direct 0.2 mg/dL (0-0.2); Bilirubin Total 0.9 mg/dL (0.2-1.0); Potassium 4.1 mmol/L (3.5-5.1); Protein, Total 7.5 g/dL (6.4-8.2)
--- NOTE | 2021-10-23 10:01 | EDPHYS ---
Physician Documentation [facility] Name: Maik Stock Age: 45 yrs Sex: Male : 1975 Arrival Date: 10/23/2021 Time: 08:36 Bed 4 Private MD: ED Physician Kashmir Benjamin HPI: 10/23 09:43 This 45 yrs old Male presents to ER via Ambulatory with complaints of Leg dutch Swelling-. 09:43 The patient presents with an abscess, large, swelling, tenderness. The complaints dutch affect the left quadriceps. Context: resulted from an unknown cause, the patient can fully bear weight. Onset: The symptoms/episode began/occurred 5 day(s) ago. Modifying factors: The symptoms are alleviated by elevating leg, the symptoms are aggravated by movement, weight bearing. Associated signs and symptoms: Pertinent positives: fever. Treatment prior to arrival includes: no previous treatment. Severity of symptoms: At their worst the symptoms were moderate, in the emergency department the symptoms are unchanged. The patient has not experienced similar symptoms in the past. Historical: - Allergies: 08:46 No Known Drug Allergies; ll1 - PMHx: 08:46 Diabetes - NIDDM; Hypertensive disorder; ll1 - PSHx: 08:46 toe amputation; ll1 - Immunization history:: Client reports receiving the 2nd dose of the Covid vaccine. - Social history:: Smoking status: Patient denies any tobacco usage or history of. - Family history:: not pertinent. ROS: 09:43 Constitutional: Negative for fever, chills, and weight loss, Eyes: Negative for injury, dutch pain, redness, and discharge, ENT: Negative for injury, pain, and discharge, Neck: Negative for injury, pain, and swelling, Cardiovascular: Negative for chest pain, palpitations, and edema, Respiratory: Negative for shortness of breath, cough, wheezing, and pleuritic chest pain, Abdomen/GI: Negative for abdominal pain, nausea, vomiting, diarrhea, and constipation, Back: Negative for injury and pain, : Negative for injury, bleeding, discharge, and swelling, Skin: Negative for injury, rash, and discoloration, Neuro: Negative for headache, weakness, numbness, tingling, and seizure, Psych: Negative for depression, anxiety, suicide ideation, homicidal ideation, and hallucinations, Allergy/Immunology: Negative for hives, rash, and allergies, Endocrine: Negative for neck swelling, polydipsia, polyuria, polyphagia, and marked weight changes, Hematologic/Lymphatic: Negative for swollen nodes, abnormal bleeding, and unusual bruising. 09:43 MS/extremity: Positive for decreased range of motion, erythema, pain, swelling, tenderness, of the left quadriceps. Exam: 09:43 Constitutional: This is a well developed, well nourished patient who is awake, alert, dutch and in no acute distress. Head/Face: Normocephalic, atraumatic. Eyes: Pupils equal round and reactive to light, extra-ocular motions intact. Lids and lashes normal. Conjunctiva and sclera are non-icteric and not injected. Cornea within normal limits. Periorbital areas with no swelling, redness, or edema. ENT: Nares patent. No nasal discharge, no septal abnormalities noted. Tympanic membranes are normal and external auditory canals are clear. Oropharynx with no redness, swelling, or masses, exudates, or evidence of obstruction, uvula midline. Mucous membranes moist. Neck: Trachea midline, no thyromegaly or masses palpated, and no cervical lymphadenopathy. Supple, full range of motion without nuchal rigidity, or vertebral point tenderness. No Meningismus. Chest/axilla: Normal chest wall appearance and motion. Nontender with no deformity. No lesions are appreciated. Cardiovascular: Regular rate and rhythm with a normal S1 and S2. No gallops, murmurs, or rubs. Normal PMI, no JVD. No pulse deficits. Respiratory: Lungs have equal breath sounds bilaterally, clear to auscultation and percussion. No rales, rhonchi or wheezes noted. No increased work of breathing, no retractions or nasal flaring. Abdomen/GI: Soft, non-tender, with normal bowel sounds. No distension or tympany. No guarding or rebound. No evidence of tenderness throughout. Back: No spinal tenderness. No costovertebral tenderness. Full range of motion. Male : Normal genitalia with no discharge or lesions. Neuro: Awake and alert, GCS 15, oriented to person, place, time, and situation. Cranial nerves II-XII grossly intact. Motor strength 5/5 in all extremities. Sensory grossly intact. Cerebellar exam normal. Normal gait. Psych: Awake, alert, with orientation to person, place and time. Behavior, mood, and affect are within normal limits. 09:43 Musculoskeletal/extremity: ROM: full active range of motion, full passive range of motion, Circulation is intact in all extremities. Sensation intact. Compartment Syndrome exam of affected extremity: is normal. Joints: Weight bearing: able to fully bear weight, DVT Exam: negative Homans' sign noted on exam, no appreciated bluish discoloration, pain, swelling, tenderness, erythema, increased warmth, that is moderate, of the left leg. 09:43 Skin: abscess, that is moderate sized, cellulitis, that is moderate, induration, that is moderate is noted. 10:20 ECG was reviewed by the Attending Physician. [facility] Vital Signs: 08:44 BP 172 / 84; Pulse 83; Resp 16; Temp 98.5; Pulse Ox 97% on R/A; Weight 98.43 kg; Height ll1 5 ft. 10 in. (177.80 cm); Pain 4/10; 09:30 BP 154 / 82; Pulse 80; Resp 16; Pulse Ox 97% on R/A; ph 10:30 BP 156 / 84; Pulse 78; Resp 16; Pulse Ox 98% on R/A; ph 11:26 BP 158 / 69; Pulse 76; Resp 18; Pulse Ox 98% on R/A; ph 08:44 Body Mass Index 31.14 (98.43 kg, 177.80 cm) ll1 MDM: 08:43 Patient medically screened. dutch 09:57 Differential diagnosis: contusion. Data reviewed: vital signs, nurses notes, lab test [facility] result(s), EKG, radiologic studies, doppler, plain films. Data interpreted: phototypesetting equipment monitor: rate is 83 beats/min, Pulse oximetry: is not applicable for this patient encounter. Test interpretation: by ED physician or midlevel provider: ECG, plain radiologic studies. Counseling: I had a detailed discussion with the patient and/or guardian regarding: lab results, radiology results, the need for further work-up and treatment in the hospital. 10/23 08:44 Order name: Basic Metabolic Panel; Complete Time: 09:42 [facility] 10/23 08:44 Order name: CBC with Diff; Complete Time: 09:42 [facility] 10/23 08:44 Order name: LFT's; Complete Time: :42 [facility] 10/23 08:44 Order name: Magnesium; Complete Time: 09:42 dutch 10/23 08:44 Order name: NT PRO-BNP; Complete Time: 09:42 [facility] 10/23 08:44 Order name: PT-INR; Complete Time: 09:42 [facility] 10/23 08:44 Order name: Troponin HS; Complete Time: 09:42 [facility] 10/23 09:42 Order name: SARS-COV-2 RT PCR (Document "Date of Onset" if Symptomatic) [facility] 10/23 10:15 Order name: Urine Dipstick-Ancillary [facility] 10/23 11:23 Order name: CBC with Automated Diff EDMS 10/23 11:23 Order name: CBC with Automated Diff [facility]MS 10/23 11:23 Order name: Comprehensive Metabolic Panel [facility] 10/23 11:23 Order name: Comprehensive Metabolic Panel [facility] 10/23 11:23 Order name: Magnesium [facility] 10/23 08:44 Order name: XRAY Chest (1 view); Complete Time: 09:42 [facility] 10/23 08:44 Order name: EKG; Complete Time: 08:44 [facility] 10/23 08:44 Order name: Cardiac monitoring; Complete Time: 08:59 dutch 10/23 08:44 Order name: EKG - Nurse/Tech; Complete Time: 08:59 dutch 10/23 08:44 Order name: IV Saline Lock; Complete Time: 08:58 [facility] 10/23 08:44 Order name: Labs collected and sent; Complete Time: 08:59 [facility] 10/23 08:44 Order name: O2 Per Protocol; Complete Time: 08:54 [facility] 10/23 08:44 Order name: O2 Sat Monitoring; Complete Time: 08:54 [facility] 10/23 08:44 Order name: Urine Dipstick-Ancillary (obtain specimen); Complete Time: 10:07 [facility] 10/23 08:44 Order name: US Extremity Venous W Compression [place] [facility] 10/23 11:22 Order name: CONS Physician Consult [facility]RI 10/23 11:23 Order name: 60g Consistent Carbohydrate (ADA 1800/2000) [facility] 10/23 11:23 Order name: NPO [facility] 10/23 11:23 Order name: Magnesium [facility] 10/23 13:39 Order name: Glucose, Ancillary Testing EDMS EC:20 Rate is 79 beats/min. Rhythm is regular. QRS [place] is Normal. [place] interval is normal. QRS dutch interval is normal. QT interval is normal. No Q waves. T waves are Normal. No ST changes noted. Clinical impression: NSR w/ Non-specific ST/T Changes and No evidence of ischemia. Interpreted by me. Reviewed by me. Administered Medications: 11:02 Drug: Zosyn (piperacillin-tazobactam) 3.375 grams Route: IVPB; Infused Over: 60 mins; ph Site: right antecubital; 21:10 Follow up: Response: No adverse reaction; IV Status: Completed infusion; IV Intake: as6 100ml Disposition Summary: 10/23/21 10:00 Hospitalization Ordered Hospitalization Status: Inpatient Admission dutch Provider: Curtis Yusuf cha Condition: Stable dutch Problem: new dutch Symptoms: have improved dutch Bed/Room Type: Standard dutch Location: Telemetry/MedSurg (Inpatient)(10/23/21 19:58) cg Room Assignment: [facility](10/23/21 19:58) Diagnosis - Cutaneous abscess of left lower limb - left thigh dutch - Type 2 diabetes mellitus with hyperglycemia dutch - Essential (primary) hypertension dutch Forms: - Medication Reconciliation Form dutch - SBAR form dutch Signatures: Dispatcher [employer] EDFatoumata Menon Corey, MD MD cha Hall, Patricia, RN RN ph Nu Chua RN RN cg Janet Whipple RN RN ll1 Clarence Olivas RN as6 Corrections: (The following items were deleted from the chart) 11:57 10:00 Telemetry/MedSurg (Inpatient) dutch bd 11:57 10:00 dutch bd 19:58 11:57 [facility] ER HOLD bd cg :58 11:57 ERHOLD- bd cg
--- NOTE | 2021-10-23 10:01 | ER ---
Nurse's Notes [facility] Name: Maik Stock Age: 45 yrs Sex: Male : 1975 Arrival Date: 10/23/2021 Time: 08:36 Bed 4 Private MD: Diagnosis: Cutaneous abscess of left lower limb-left thigh;Type 2 diabetes mellitus with hyperglycemia;Essential (primary) hypertension Presentation: 10/23 08:44 Chief complaint: Patient states: Abscess to L thigh for 3 days getting progressively ll1 worse. No drainage or fever. Coronavirus screen: Vaccine status: Patient reports receiving the 2nd dose of the covid vaccine. Client denies travel out of the [place] in the last 14 days. At this time, the client does not indicate any symptoms associated with coronavirus-19. Ebola Screen: Patient denies travel to an Ebola-affected area in the 21 days before illness onset. Initial Sepsis Screen: Does the patient meet any 2 criteria? No. Patient's initial sepsis screen is negative. Does the patient have a suspected source of infection? Yes: Skin breakdown/wound. Risk Assessment: Do you want to hurt yourself or someone else? Patient reports no desire to harm self or others. Onset of symptoms was October 21, 2021. 08:44 Method Of Arrival: Ambulatory ll1 08:44 Acuity: JACQUE 3 ll1 Historical: - Allergies: 08:46 No Known Drug Allergies; ll1 - PMHx: 08:46 Diabetes - NIDDM; Hypertensive disorder; ll1 - PSHx: 08:46 toe amputation; ll1 - Immunization history:: Client reports receiving the 2nd dose of the Covid vaccine. - Social history:: Smoking status: Patient denies any tobacco usage or history of. - Family history:: not pertinent. Screenin:53 Abuse screen: Denies threats or abuse. Denies injuries from another. Nutritional ph screening: No deficits noted. Nutritional screening: No deficits noted. Tuberculosis screening: No symptoms or risk factors identified. Fall Risk None identified. Assessment: 09:30 General: Appears in no apparent distress. Behavior is calm, cooperative, appropriate ph for age. Pain: Complains of pain in left quadriceps. Neuro: Level of Consciousness is awake, alert, obeys commands, Oriented to person, place, time, situation. Cardiovascular: Capillary refill < 3 seconds in bilateral fingers Patient's skin is warm and dry. Respiratory: Airway is patent Respiratory effort is even, unlabored. Derm: Skin is healthy with good turgor, Skin is pink, warm \\T\\ dry. Abscess located on left quadriceps is golf ball sized, is red, is raised, was lanced by patient prior to arrival. Musculoskeletal: Circulation, motion, and sensation intact. Range of motion: intact in all extremities. Vital Signs: 08:44 BP 172 / 84; Pulse 83; Resp 16; Temp 98.5; Pulse Ox 97% on R/A; Weight 98.43 kg; Height ll1 5 ft. 10 in. (177.80 cm); Pain 4/10; 09:30 BP 154 / 82; Pulse 80; Resp 16; Pulse Ox 97% on R/A; ph 10:30 BP 156 / 84; Pulse 78; Resp 16; Pulse Ox 98% on R/A; ph 11:26 BP 158 / 69; Pulse 76; Resp 18; Pulse Ox 98% on R/A; ph 08:44 Body Mass Index 31.14 (98.43 kg, 177.80 cm) ll1 ED Course: 08:36 Patient arrived in ED. ds1 08:39 Arm band placed on Patient placed in an exam room, on a stretcher. ll1 08:43 Kashmir Benjamin MD is Attending Physician. dutch 08:46 Triage completed. ll1 08:52 Lorena Mike, RN is Primary Nurse. ph 08:58 Initial lab(s) drawn, by nv, sent to lab. Inserted saline lock: 20 gauge in right mh5 antecubital area, using aseptic technique. Blood collected. 08:59 Basic Metabolic Panel Sent. mh5 08:59 CBC with Diff Sent. mh5 08:59 LFT's Sent. mh5 08:59 Magnesium Sent. mh5 08:59 NT PRO-BNP Sent. mh5 08:59 PT-INR Sent. mh5 08:59 Troponin HS Sent. mh5 09:12 XRAY Chest (1 view) In Process Unspecified. EDMS 09:13 Patient has correct armband on for positive identification. Placed in gown. Bed in low mh5 position. Call light in reach. Adult w/ patient. Warm blanket given. monitor technician on. Pulse ox on. NIBP on. 09:14 Basic Metabolic Panel Sent. mh5 09:14 LFT's Sent. [facility] 09:14 Magnesium Sent. [facility] 09:14 NT PRO-BNP Sent. [facility] 09:14 PT-INR Sent. [facility] 09:14 Troponin HS Sent. [facility] 09:34 US Extremity Venous W Compression [place] In Process Unspecified. EDVA 09:58 Curtis Yusuf MD is Hospitalizing Provider. [facility] 10:07 SARS-COV-2 RT PCR (Document "Date of Onset" if Symptomatic) Sent. [facility] 10:07 Urine collected: clean catch specimen, clear, EKG done, by ED staff, reviewed by Kashmir Benjamin MD COVID swab sent to lab. 11:25 No provider procedures requiring assistance completed. Patient admitted, IV remains in ph place. Administered Medications: 11:02 Drug: Zosyn (piperacillin-tazobactam) 3.375 grams Route: IVPB; Infused Over: 60 mins; ph Site: right antecubital; 21:10 Follow up: Response: No adverse reaction; IV Status: Completed infusion; IV Intake: as6 100ml Medication: 09:53 VIS not applicable for this client. ph Intake: 21:10 IV: 100ml; Total: 100ml. as6 Outcome: 10:00 Decision to Hospitalize by Provider. [facility] 21:10 Admitted to Med/surg accompanied by tech, via wheelchair, room 220, with chart. as6 21:10 Condition: stable 21:10 Instructed on the need for admit. 21:25 Patient left the ED. as6 Signatures: Dispatcher [employer] Kashmir Mosley MD MD cha Sanford, Demi ds1 Lorena Mike RN RN ph Martinez, Maria [facility] Janet Whipple RN RN ll1 Clarence Olivas RN RN as6 Corrections: (The following items were deleted from the chart) 10:33 08:44 Acuity: JACQUE 4 ll1 ll1
--- NOTE | 2021-10-23 10:04 | RAD REPORT ---
EXAM DESCRIPTION: USExtrem Venous W Compress Bil10/23/2021 9:45 am CLINICAL HISTORY: Leg pain COMPARISON: 2017 FINDINGS: Echogenic material is present within the periphery of the mid right common femoral vein. T he vein is compressible. This has the appearance of old thrombus. The remainder of the common femoral, superficial femoral, popliteal and posterior tibial veins bilate rally are compressible and demonstrate augmentation. Doppler demonstrates good flow. 11 x 4 centimeter fluid collection medial left knee Grayscale, color and spectral analysis performed on all vessels IMPRESSION: No evidence of acute deep venous thrombosis involving either lower extremity. 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
[2021-10-23 10:15] LABS: Urine Blood Negative (Negative); Urine Glucose 2+ (Negative); Urine Protein Trace (Negative); Urine Specific Gravity >=1.030 (1.005-1.030); Urine pH 6.5 (5.0-7.0)
[2021-10-23] MEDS ORDERED: PIPERACIL/TAZO 3.375 GM VIAL IV ONE (10:40)
[2021-10-23] MEDS ORDERED: NA CHLORIDE 0.9% 100 ML IV ONE (10:40)
[2021-10-23] MEDS ORDERED: ACETAMINOPHEN 500 MG TAB PO PRN (11:20)
[2021-10-23] MEDS ORDERED: ONDANSETRON 4 MG/2 ML VIAL IV PRN (11:20)
[2021-10-23] MEDS ORDERED: MORPHINE 4 MG/ML SYR IV PRN (11:27)
[2021-10-23] MEDS: INSULIN -REGULAR HUMAN 50 UNIT/0.5 ML ML SQ SCH ×3 (11:30→22:09)
[2021-10-23] MEDS ORDERED: CODEINE 30MG/APAP 300MG TAB PO PRN (11:30)
--- NOTE | 2021-10-23 11:31 | P.HP ---
Certification for Inpatient Patient admitted to: Observation With expected LOS: <2 Midnights Practitioner: I am a practitioner with admitting privileges, knowledge of patient current condition, hospital course, and medical plan of care. Services: Services provided to patient in accordance with Admission requirements found in Title 42 Section 412.3 of the Code of Federal Regulations Patient History Date of Service: 10/23/21 Reason for admission: LLE abscess History of Present Illness: 45yo, PMH: IDDM2, HTN Presents to ED due to large LLE abscess that worsened over the last several days. Initially started as a small boil, popped, and then suddenly became bigger in last 1-2 days. Pain in left lower thigh, does not radiate. Has not taken anything for this. Denies nausea/vomiting/diarrhea. In the ED, U/S noted large abscess, no DVT. Started antibiotics, and consulted general surgery. Patient initially did not want to be admitted and requested discharge home. Discussed the high risk of going home since follow up with surgery will be delayed as outpatient. Patient agreed to stay. Allergies No Known Drug Allergies Allergy (Verified 09/05/20 11:14) Unknown Home Medications: Metformin HCl [Metformin HCl ER] 1,000 mg PO BID 02/06/17 Insulin Glargine,Hum.rec.anlog [Lantus] 30 units SQ DAILY 09/05/20 Minocycline HCl 1 cap PO DAILY 09/05/20 terbinafine HCL [Terbinafine HCl] 1 tab PO DAILY 09/05/20 - Past Medical/Surgical History Diabetic: Yes -: IDDM -: Neuropathy -: Sleep apnea -: Right great toe partial-amputation -: Right knee sx r/t fall -: Hx right knee joint replacement - Social History Smoking Status: Never smoker Alcohol use: Yes CD- Drugs: No Caffeine use: Yes Place of Residence: Home Review of Systems 10-point ROS is otherwise unremarkable Physical Examination - Physical Exam General: Alert, In no apparent distress HEENT: Sclerae nonicteric Neck: Supple Respiratory: Clear to auscultation bilaterally, Normal air movement Cardiovascular: No edema, Regular rate/rhythm Gastrointestinal: Soft and benign, Non-distended, No tenderness Musculoskeletal: No contractures Integumentary: Other (erythema, tenderness, warmth of left lower thigh) Neurological: Normal speech, Normal affect - Studies Laboratory Data (last 24 hrs) 10/23/21 08:56: PT 11.6, INR 1.05 10/23/21 08:56: WBC 9.2, Hgb 13.1 L, Hct 37.9 L, Plt Count 317 10/23/21 08:56: Sodium 137, Potassium 4.1, BUN 23 H, Creatinine 1.05, Glucose 159 H, Magnesium 2.0, Total Bilirubin 0.9, AST 26, ALT 36, Alkaline Phosphatase 104 Assessment and Plan - Advance Directives Does patient have a Living Will: No Does patient have a Durable POA for Healthcare: No Physician Review Additional Text: Problem List LLE abscess IDDM2 HTN IV cef & vanc insulin sliding scale pain meds as needed general surgery consulted - planned for OR tomorrow, likely home in afternoon NPO after midnight confirm home meds / insulin, restart as appropriate VTE: SCDs Code: full Dispo: home, likely tomorrow after I&D Time Spent Managing Pts Care (In Minutes): 75
[2021-10-23] MEDS: VANCOMYCIN 1.75 GM in NA CHLORIDE 0.9% 500 ML IVPB SCH ×2 (13:00→23:55)
[2021-10-23] MEDS: CEFEPIME 1 GM in NA CHLORIDE 0.9% 100 ML IV SCH (21:54)
--- NOTE | 2021-10-23 22:00 | CON ---
Date of Consultation: 10/23/2021 Reason For Service: Left large thigh abscess. History Of Present Illness: This is a case of a male who comes to us with tenderness over his left t high region. When he was examined, he was found to have a large abscess in that region. He does not know exactly what happened there. It started with a swelling, developed into this open ulcer and th is erythema and swelling of the anterior thigh region. He denies any trauma. He has history of diab etes. He denies any dysuria, hematuria, hematochezia, melena. He denies any recent traveling out of the country. Denies any family member sick at home. Allergies: NONE. Medical History: Diabetes, hypertension. Past Surgical History: Toe amputation. Social History: He does not smoke. He does not drink alcohol. Family History: Noncontributory. Review of Systems: See HPI. Ten points otherwise unremarkable. Physical Examination: General: The patient is awake and alert. HEENT: Pupils are equal and reactive. Anicteric. Neck: Supple. Chest: Clear. Abdomen: Soft and depressible. Rectal: Deferred. Extremities: The patient has an anterior thigh nonhealing wound, open ulcer with cellulitis and poss ible abscess. Necrotic tissue present. Peripheral pulses present although diminished bilaterally ch ronically as per patient. Venous studies shows no new DVT. There is 11 x 4 cm fluid collection. Assessment: This is a 45-year-old patient with cellulitis and abscess of the left thigh. Benefits, alternatives, and risks of debridement with drainage of an abscess and subcutaneous debridement fully explained, which include, but not limited to infection, bleeding, damage to adjacent structures, ane sthesia complication, nonhealing wound, AK, and even . He also understands this may not relieve any symptoms. He might need more than one surgical intervention. He also understands the importanc e of wound care after this and also the importance of diet control and diabetes control. The patient is eating at this moment. We are going to keep him n.p.o. after midnight since it is going to be do ne under anesthetic. We are going to start antibiotics and send cultures. NOHEMI/RAFAEL Voice ID: [id number] Report ID: [id number]
[2021-10-24 04:13] LABS: Absolute Lymphocytes (CBC) 1.9 K/uL (0.7-4.9); Hematocrit 35.1 % (39.6-49.0); Lymphocytes % 23.6 % (15.3-44.8); MPV 8.2 fL (7.6-11.3); RBC Red Blood Cell Count 3.93 M/uL (4.33-5.43)
[2021-10-24 04:37] LABS: Albumin 3.1 g/dL (3.4-5.0); Protein, Total 6.7 g/dL (6.4-8.2)
[2021-10-24] MEDS: INSULIN -REGULAR HUMAN 50 UNIT/0.5 ML ML SQ SCH ×2 (07:30→11:30)
[2021-10-24] MEDS ORDERED: NA CHLORIDE 0.9% 1,000 ML ONE (07:51)
[2021-10-24] MEDS ORDERED: propofoL 200 MG/20 ML VIAL IV ONE (08:15)
[2021-10-24] MEDS ORDERED: MIDAZOLAM HCL 2 MG/2 ML INJ ONE (08:16)
[2021-10-24] MEDS ORDERED: FENTANYL CITR 100 MCG/2 ML ONE (08:16)
[2021-10-24] MEDS ORDERED: ONDANSETRON 4 MG/2 ML VIAL ONE (08:16)
[2021-10-24] MEDS ORDERED: dexAMETHasone 10 MG/ML VIAL ONE (08:16)
[2021-10-24] MEDS ORDERED: KETOROLAC 30 MG/ML INJ ONE (08:17)
[2021-10-24] MEDS ORDERED: LIDOCAINE 2% MPF 5 ML VIAL ONE (08:17)
[2021-10-24] MEDS ORDERED: EPHEDRINE SULF 50 MG/ML VIAL ONE (08:49)
[2021-10-24] MEDS: CEFEPIME 1 GM in NA CHLORIDE 0.9% 100 ML IV SCH (08:55)
--- NOTE | 2021-10-24 09:20 | P.BOP ---
Preoperative diagnosis: necrotic wound with abscess cellulitis left thigh Postoperative diagnosis: same Primary procedure: Excisional subQ debridement necrotic wound left thigh with abscess drain Secondary procedure: 5x5cm Estimated blood loss: <10cc Specimen: necrotic tissue and culture Findings: as above Anesthesia: General Complications: None Drain(s): Other (wet to dry) Transferred to: Recovery Room Condition: Good
--- NOTE | 2021-10-24 09:36 | EKG ---
Test Date: 2021-10-23 Test Time: 09:11:47 [employer]: FAN MEASUREMENT RESULTS: Intervals: Rate: 79 OH: 170 QRSD: 104 QT: 394 QTc: 451 [place]: P: 75 OH: 170 QRS: -30 T: 79 INTERPRETIVE STATEMENTS: Sinus rhythm with frequent premature ventricular complexes Left axis deviation Pulmonary disease pattern Abnormal ECG Compared to ECG 12/07/2018 23:38:27 Left-axis deviation now present Prolonged QT interval no longer present Electronically Signed On 10-24-21 09:32:41 CDT by Aaron Joyce
[2021-10-24 09:37] VITALS: O2SAT 99
--- NOTE | 2021-10-24 10:00 | OP ---
Date of Procedure: 10/24/2021 Surgeon: Shakir Murrieta MD Preoperative Diagnoses: Necrotic wound with abscess and cellulitis in the left thigh, diabetes. Postoperative Diagnoses: Necrotic wound with abscess and cellulitis in the left thigh, diabetes. Procedure: Excisional subcutaneous debridement of necrotic wound in the left thigh with drainage of an abscess about 5 x 5 cm. Specimen: Necrotic tissue and culture. Finding: The patient has necrotic tissue, ulcerated area with necrotic fat present, and then underly ing is a purulent discharge abscess. Anesthesia: General plus local. Estimated Blood Loss: Less than 10 mL. Complications: None. Packing: Wet-to-dry, normal saline. Indication: This is the case of a 45-year-old patient, comes with an abscess and cellulitis of the l eft thigh region with necrotic wound, unknown etiology. The patient has history of diabetes. Benefi ts, alternatives, and risks of excisional debridement and drainage of an abscess fully explained, whi ch include, but not limited to infection, bleeding, damage to adjacent structures, anesthesia complic ation, [place] and even . He also understands this may not relieve any symptoms. He might need more than one surgical intervention. He understood, signed a consent. He also was explained in [place] and [place] and the the need for wet-to-dry dressing in the future and also follow up in the [facility]. He understood when he goes home to take his antibiotics and do dressing changes a nd control his diabetes. Procedure In Detail: The patient was brought to the operating room, placed in supine position. Anes thesia was done without complication and time-out was called. Left thigh was prepped and draped in t he usual sterile fashion. A wedge incision was made on the skin to remove the necrotic tissue all th e way down to fascia of the muscle, but the muscle seems not to be involved. The mass was completely excised and deep to the necrotic mass, we noticed also the patient has an abscess, so cultures were done of that abscess. Profuse irrigation was done. Local anesthetic was applied and then the area w as covered with wet-to-dry dressing. The patient tolerated the procedure well. The patient was sent to recovery in stable condition. We explained to the patient that if he goes home today to keep the area dry until tomorrow, then he can go wet-to-dry dressing. His apparently feels comfortable with that. [facility] He has to call for appointment. NOHEMI/RAFAEL Voice ID: [id number] Report ID: [id number]
--- NOTE | 2021-10-24 10:44 | P.DS ---
Admission Date: 10/23/21 Discharge Date: 10/24/21 Disposition: ROUTINE DISCHARGE Discharge Condition: FAIR Reason for Admission: LLE abscess Consultations: General Surgery-Dr. Murrieta. - Problems (1) Abscess of foot Current Visit: Yes Status: Acute (2) Diabetes mellitus type 2 in obese Current Visit: Yes Status: Acute Brief History of Present Illness: 45yo, PMH: IDDM2, HTN presented to the ED due to large LLE abscess that worsened over the last several days. Initially started as a small boil, popped, and then suddenly became bigger over 1-2 days. In the ED, U/S noted large abscess, no DVT. Started antibiotics, and consulted general surgery. PAtient admitted for further management. Hospital Course: Patient placed under observation and started on IV antibiotics. He was seen and evaluated by general surgery-Dr. Murrieta will take him to the OR, performed incision and drainage and irrigation. Patient deemed stable for discharge per Dr. Murrieta. He is prescribed antibiotics-Levaquin and doxycycline. He was informed to follow-up with Dr. Murrieta in the wound clinic next week Saturday. Wound cultures are pending to be followed as an outpatient. Vital Signs/Physical Exam: Temp Pulse Resp BP Pulse Ox 98.3 F 90 18 134/79 98 10/24/21 09:35 10/24/21 09:35 10/24/21 09:35 10/24/21 09:35 10/24/21 08:00 General: Alert, In no apparent distress, Oriented x3 HEENT: Mucous membr. moist/pink, Sclerae nonicteric Neck: JVD not distended Respiratory: Clear to auscultation bilaterally, Normal air movement Cardiovascular: No edema, Regular rate/rhythm, Normal S1 S2 Gastrointestinal: Soft and benign, Non-distended Neurological: Normal strength at 5/5 x4 extr Laboratory Data at Discharge: WBC 8.1 K/uL (4.3-10.9) 10/24/21 03:49 Hgb 12.1 g/dL (13.6-17.9) L 10/24/21 03:49 Hct 35.1 % (39.6-49.0) L 10/24/21 03:49 Plt Count 277 K/uL (152-406) 10/24/21 03:49 PT 11.6 SECONDS (9.5-12.5) 10/23/21 08:56 INR 1.05 10/23/21 08:56 Sodium 138 mmol/L (136-145) 10/24/21 03:49 Potassium 4.0 mmol/L (3.5-5.1) 10/24/21 03:49 BUN 19 mg/dL (7-18) H 10/24/21 03:49 Creatinine 1.18 mg/dL (0.55-1.3) 10/24/21 03:49 Glucose 164 mg/dL (74-106) H 10/24/21 03:49 Magnesium 2.0 mg/dL (1.8-2.4) 10/24/21 03:49 Total Bilirubin 1.0 mg/dL (0.2-1.0) 10/24/21 03:49 AST 15 U/L (15-37) 10/24/21 03:49 ALT 29 U/L (12-78) 10/24/21 03:49 Alkaline Phosphatase 88 U/L (45-117) 10/24/21 03:49 Home Medications: Metformin HCl [Metformin ER Osmotic] 1,000 mg PO BID 02/06/17 Insulin Glargine,Hum.rec.anlog [Lantus] 30 units SQ BEDTIME 09/05/20 Atorvastatin Calcium 40 mg PO DAILY 10/24/21 Codeine/APAP [Tylenol #3*] 1 tab PO Q4H PRN #20 tab 10/24/21 Dapagliflozin Propanediol [Farxiga] 10 mg PO DAILY 10/24/21 Doxycycline Hyclate 100 mg PO BID #28 capsule 10/24/21 Lisinopril [Zestril] 2.5 mg PO DAILY 10/24/21 levoFLOXacin [Levaquin] 750 mg PO DAILY #14 tab 10/24/21 New Medications: Doxycycline Hyclate 100 mg PO BID #28 capsule levoFLOXacin [Levaquin] 750 mg PO DAILY #14 tab Codeine/APAP [Tylenol #3*] 1 tab PO Q4H PRN #20 tab PRN Reason: Pain Scale 5-7 (Moderate) Diet: ADA Activity: Ad beto Followup: Salazar Robles MD [Primary Care Provider] - Shakir Murrieta MD [ACTIVE - CAN ADMIT] - 1 Week (Please the [facility] at [phone] for appointment on Saturday10/31/2021.)
[2021-10-24] MEDS ORDERED: VANCOMYCIN 1.75 GM in NA CHLORIDE 0.9% 500 ML IVPB SCH (12:00)
[2021-10-24 12:18] VITALS: BP 149/92; TEMP 97.6
== END 2021-10-24 12:30 | disposition home or self-care (01) ==
LOC: ER 08:34 → ERHOLD 11:19 → 2ND 20:06
PROVIDERS: ADMIT Hospitalist; ATTEND Internal Medicine
PROC: 0JBM0ZZ Excision of Left Upper Leg Subcutaneous Tissue and Fascia, Open Approach (ICD-10-PCS; principal; 2021-10-24 08:15)
DX: E11.52 Type 2 diabetes mellitus with diabetic peripheral angiopathy with gangrene (principal); E11.65 Type 2 diabetes mellitus with hyperglycemia; I96 Gangrene, not elsewhere classified; L02.416 Cutaneous abscess of left lower limb; L03.116 Cellulitis of left lower limb; E11.40 Type 2 diabetes mellitus with diabetic neuropathy, unspecified; I10 Essential (primary) hypertension; G47.30 Sleep apnea, unspecified; E66.9 Obesity, unspecified; Z68.30 Body mass index [BMI] 30.0-30.9, adult; Z79.84 Long term (current) use of oral hypoglycemic drugs; Z79.4 Long term (current) use of insulin; Z79.899 Other long term (current) drug therapy; Z20.822 Contact with and (suspected) exposure to COVID-19; Z96.651 Presence of right artificial knee joint; Z89.411 Acquired absence of right great toe
CPT/HCPCS: 96365; 93005; 87070; 85025 ×2; 80048; 36415; 83735 ×2; 87205; 85610; 82947 ×4; 80076; 88304; 87075; 87077; 87186; 81003; 84484; 80053; 83880; 71045; 93970; 99285; 96366; 11042; 11045; U0003; J2704; J1815; J2543; J2250; J3010; J3370 ×2; J1100; G0378 ×4; J7040 ×2; J7030; J2405; J0692 ×2

== ENCOUNTER 2022-10-11 17:35 | Inpatient (IN) | payer OTHER ==
--- OUTSIDE RECORDS SUMMARY | 2022-10-11 17:50 | XMS REPORT | Continuity of Care Document ---
:1975 Author Organization [facility] t Address [address] [place] [address] [place] [id number] Care Team Providers Name Role Phone PASCUALLACEY Justyna Primary Care Physician Unavailable Nurse, Adc Pob Immunization Attending Clinician Unavailable Deon Pelaez DO Attending Clinician DEON PELAEZ Attending Clinician Unavailable [facility] Attending Clinician Unavailable Moody Hernandez MD Attending Clinician MOODY HERNANDEZ Attending Clinician Unavailable IRINEO BURNS Attending Clinician Unavailable OGUNLANEDILIA MajanoMARY A Attending Clinician Unavailable OgunEdilia pepper DPMuwatosin A Attending Clinician [phone] Doctor Unassigned, [place] Attending Clinician Unavailable Sara Dougherty RN Attending Clinician Unavailable MARYANN RUSS Attending Clinician Unavailable Lavinia Kelley Attending Clinician Bernardino Paez MD Attending Clinician Kim Chaudhari MD Attending Clinician Maryann Russ MD Attending Clinician BERNARDINO PAEZ Admitting Clinician Unavailable Bernardino Paez MD Admitting Clinician Payers Payer Name Policy Type Policy Number Effective Date Expiration Date S ource Problems Condition Condition Condition Status Onset Resolution Last Treating Co mments Source Name Details Category Date Date Treatment Clinician Date Obesity Obesity Disease Active Univers (BMI (BMI 2-04 ity of 30-39.9) [...] Added automatic ally from request for surgery [id number] Puncture Puncture Disease Active Overview: [facility] wound of wound of -04 Formattin ity of left foot, left foot, 00:00: g of this [place] initial initial 00 note Medical encounter encounter might be Br anch different from the original. Added automatic ally from request for surgery [id number] Left foot Left foot Disease Active Overview: Univers infection infection 07-14 Formattin i ty of 00:00: g of this 00 note Medical might be Branch different from the original. Added automatic ally from request for surgery [id number] Diabetes Diabetes Disease Active Unive rs 1-13 ity of 00:00: [place] 00 Medical Branch Type 2 Type 2 Disease Active Univers diabetes diabetes -04 ity of mellitus mellitus 00:00: [place] with [...] fracture fracture 0-12 ity of 00:00: [place] 00 Medical Branch Tibia/fibu Tibia/fibu Disease Active 2015-06 U nivers la la 0-10 [place] of fracture[place], [place], 00 Medical closed, closed, Branch initial initial encounter encounter Toe ulcer, Toe ulcer, Disease Active U nivers right right 3-11 ity of 00:00: [place] 00 Medical Branch DM2 DM2 Disease Active Univers (diabetes (diabetes 3-11 ity of mellitus, mellitus, 00:00: s type 2) type 2) 00 Medical Branch Diabetic Diabetic Disease Active Unive rs foot ulcer foot ulcer 3-11 it y of 00:00: [place] 00 Medical Branch Allergies, Adverse Reactions, Alerts Allergy Allergy Status Severity Reaction(s) Onset Inactive Treating Comm ents Source Name Type Date Date Clinician NO KNOWN Drug Active Univers ALLERGIE Class ity of S [facility] Social History Social Habit Start Date Stop Date Quantity Comments Source Exposure to Not sure [facility] SARS-CoV-2 (event) Medica l [place] Alcohol intake 2020-10-19 2020-10-19 0 /d [facility] 00:00:00 00:00:00 [facility] Tobacco use and 2014-08-18 2014-08-18 Never used [facility] exposure 00:00:00 00:00:00 [facility] Sex Ass[birth year] At [birth year] [facility] 00:00:00 00:00:00 [facility] Smoking Status Start Date Stop Date Source Never smoker [facility] Medications Ordered Filled Start Stop Current Ordering Indication Dosage Frequency Signature Comments Components Source Medication Medication Date Date Medication? Clinician (SIG) Name Name clotrimazol Yes [id number] Apply to Univers e 5-12 area(s) at ity of (ATHLETE'S 00:00: bedtime. [place] as FOOT, 00 Medical CLOTRIMAZOL Branch E,) 1 % topical cream minocycline Yes [id number] 100mg Take 1 Univers 100 mg 5-12 capsule by ity of capsule 00:00: mouth [place] 00 every 12 Medical (twelve) Branch hours. clotrimazol Yes [id number] Apply to Univers e 5-12 area(s) at ity of (ATHLETE'S 00:00: bedtime. [place] FOOT, 00 Medical CLOTRIMAZOL Branch E,) 1 % topical cream minocycline Yes [id number] 100mg Take 1 Univers 100 mg 5-12 capsule by ity of capsule 00:00: mouth [place] 00 every 12 Medical (twelve) Branch hours. clotrimazol 2021-0 Yes [id number] Apply to Univers e 5-12 area(s) at ity of (ATHLETE'S 00:00: bedtime. [place] FOOT, 00 Medical CLOTRIMAZOL Branch E,) 1 % topical cream minocycline 2020-0 Yes [id number] 100mg Take 1 Univers 100 mg 5-12 capsule by ity of capsule 00:00: mouth [place] 00 every 12 Medical (twelve) Branch hours. clotrimazol 202-0 Yes [id number] Apply to Univers e 5-12 area(s) at ity of (ATHLETE'S 00:00: bedtime. [place] FOOT, 00 Medical CLOTRIMAZOL Branch E,) 1 % topical cream minocycline 2020-0 Yes [id number] 100mg Take 1 Univers 100 mg 5-12 capsule by ity of capsule 00:00: mouth [place] 00 every 12 Medical (twelve) Branch hours. minocycline 2020-0 Yes [id number] 100mg Take 1 Univers 100 mg 3-24 capsule by ity of capsule 00:00: mouth [place] 00 every 12 Medical (twelve) Branch hours. minocycline 2020-0 Yes [id number] 100mg Take 1 Univers 100 mg 3-24 capsule by ity of capsule 00:00: mouth [place] 00 every 12 Medical (twelve) Branch hours. minocycline 2020-0 Yes [id number] 100mg Take 1 Univers 100 mg 3-24 capsule by ity of capsule 00:00: mouth [place] 00 every 12 Medical (twelve) Branch hours. minocycline 2020-0 Yes [id number] 100mg Take 1 Univers 100 mg 3-24 capsule by ity of capsule 00:00: mouth [place] 00 every 12 Medical (twelve) Branch hours. terbinafine 2020-0 2020- No [id number] 250mg Take 1 Univers HCL 250 mg 3-24 06-23 tablet by ity of tablet 00:00: 04:59 mouth [place] 00 :00 daily for Medical 90 days. Branch terbinafine 202-0 2020- No [id number] 250mg Take 1 Univers HCL 250 mg 3-24 06-23 tablet by ity of tablet 00:00: 04:59 mouth [place] 00 :00 daily for Medical 90 days. Branch terbinafine 2020-0 2020- No [id number] 250mg Take 1 Univers HCL 250 mg 3-24 - tablet by ity of tablet 00:00: 04:59 mouth [place] 00 :00 daily for Medical 90 days. Branch terbinafine 2020-0 2020- No [id number] 250mg Take 1 Univers HCL 250 mg 3-24 -23 tablet by ity of tablet 00:00: 04:59 mouth [place] 00 :00 daily for Medical 90 days. Branch minocycline 2020-0 1- No [id number] 100mg Take 1 Univers 100 mg 3-24 05-12 capsule by ity of capsule 00:00: 00:00 mouth [place] 00 :00 every 12 Medical (twelve) Branch hours. minocycline 2020-0 1- No [id number] 100mg Take 1 Univers 100 mg 3-24 05-12 capsule by ity of capsule 00:00: 00:00 mouth [place] 00 :00 every 12 Medical (twelve) Branch hours. minocycline 2020-0 Yes [id number] 100mg Take 1 Univers 100 mg 3-03 capsule by ity of capsule 00:00: mouth [place] 00 every 12 Medical (twelve) Branch hours. rifAMPin 2020-0 Yes [id number] 300mg Take 1 U nivers 300 mg 3-03 capsule by ity of capsule 00:00: mouth [place] 00 every 12 Medical (twelve) Branch hours. minocycline 2020-0 Yes [id number] 100mg Take 1 Univers 100 mg 3-03 capsule by ity of capsule 00:00: mouth [place] 00 every 12 Medical (twelve) Branch hours. rifAMPin 2020-0 Yes [id number] 300mg Take 1 U nivers 300 mg 3-03 capsule by ity of capsule 00:00: mouth [place] 00 every 12 Medical (twelve) Branch hours. minocycline 2020-0 Yes [id number] 100mg Take 1 Univers 100 mg 3-03 capsule by ity of capsule 00:00: mouth [place] 00 every 12 Medical (twelve) Branch hours. rifAMPin 2021-0 Yes [id number] 300mg Take 1 U nivers 300 mg 3-03 capsule by ity of capsule 00:00: mouth [place] 00 every 12 Medical (twelve) Branch hours. minocycline 2021-0 Yes [id number] 100mg Take 1 Univers 100 mg 3-03 capsule by ity of capsule 00:00: mouth [place] 00 every 12 Medical (twelve) Branch hours. rifAMPin 2021-0 Yes [id number] 300mg Take 1 U nivers 300 mg 3-03 capsule by ity of capsule 00:00: mouth [place] 00 every 12 Medical (twelve) Branch hours. rifAMPin 2021-0 Yes [id number] 300mg Take 1 U nivers 300 mg 3-03 capsule by ity of capsule 00:00: mouth [place] 00 every 12 Medical (twelve) Branch hours. rifAMPin 2021-0 2021- No [id number] 300mg Take 1 Univers 300 mg 3-03 03-24 capsule by ity of capsule 00:00: 00:00 mouth [place] 00 :00 every 12 Medical (twelve) Branch hours. minocycline 2021-0 2021- No [id number] 100mg Take 1 Univers 100 mg 3-03 03-24 capsule by ity of capsule 00:00: 00:00 mouth [place] 00 :00 every 12 Medical (twelve) Branch hours. rifAMPin 2021-0 2021- No [id number] 300mg Take 1 Univers 300 mg 3-03 03-24 capsule by ity of capsule 00:00: 00:00 mouth [place] 00 :00 every 12 Medical (twelve) Branch hours. minocycline 202-0 2021- No [id number] 100mg Take 1 Univers 100 mg 3-03 03-24 capsule by ity of capsule 00:00: 00:00 mouth [place] 00 :00 every 12 Medical (twelve) Branch hours. rifAMPin 2020-0 2021- No [id number] 300mg Take 1 Univers 300 mg 3-03 03-24 capsule by ity of capsule 00:00: 00:00 mouth [place] 00 :00 every 12 Medical (twelve) Branch hours. sodium 2020-0 Yes [id number] Apply to [facility] hypochlorit 2-26 area(s) ity o f e (DAKIN'S 00:00: every [place] MODIFIED 00 Saturday, Medical 0.25%) Wedned Branch solution and Saturday in the evening. sodium 202-0 Yes [id number] Apply to [facility] hypochlorit 2-26 area(s) ity o f e (DAKIN'S 00:00: every [place] MODIFIED 00 Saturday, Medical 0.25%) Wedned[place] Branch solution and Saturday in the evening. sodium 2020-0 Yes [id number] Apply to [facility] hypochlorit 2-26 area(s) ity o f e (DAKIN'S 00:00: every [place] MODIFIED Saturday, Medical 0.25%) [place] Branch solution and Saturday in the evening. sodium Yes [id number] Apply to [facility] hypochlorit 2-26 area(s) ity o f e (DAKIN'S 00:00: every [place] MODIFIED Saturday, Medical 0.25%) [place] Branch solution and Saturday in the evening. sodium Yes [id number] Apply to [facility] hypochlorit 2-26 area(s) ity o f e (DAKIN'S 00:00: every [place] MODIFIED Saturday, Medical 0.25%) [place] Branch solution and Saturday in the evening. sodium Yes [id number] Apply to [facility] hypochlorit 2-26 area(s) ity o f e (DAKIN'S 00:00: every [place] MODIFIED Saturday, Medical 0.25%) [place] Branch solution and Saturday in the evening. sodium Yes [id number] Apply to [facility] hypochlorit 2-26 area(s) ity o f e (DAKIN'S 00:00: every [place] MODIFIED Saturday, Medical 0.25%) [place] Branch solution and Saturday in the evening. sodium 0 Yes [id number] Apply to [facility] hypochlorit 2-26 area(s) ity o f e (DAKIN'S 00:00: every [place] MODIFIED Saturday, Medical 0.25%) [place] Branch solution and Saturday in the evening. sodium 0 Yes [id number] Apply to [facility] hypochlorit 2-26 area(s) ity o f e (DAKIN'S 00:00: every [place] MODIFIED Saturday, Medical 0.25%) [place] Branch solution and Saturday in the evening. sodium 0 Yes [id number] Apply to [facility] hypochlorit 2-26 area(s) ity o f e (DAKIN'S 00:00: every [place] MODIFIED Saturday, Medical 0.25%) [place] Branch solution and Saturday in the evening. sodium Yes [id number] Apply to [facility] hypochlorit 2-26 area(s) ity o f e (DAKIN'S 00:00: every [place] MODIFIED Saturday, Medical 0.25%) [place] Branch solution and Saturday in the evening. sodium Yes [id number] Apply to [facility] hypochlorit 2-26 area(s) ity o f e (DAKIN'S 00:00: every [place] MODIFIED Saturday, Medical 0.25%) [place] Branch solution and Saturday in the evening. sodium Yes [id number] Apply to [facility] hypochlorit 2-26 area(s) ity o f e (DAKIN'S 00:00: every [place] MODIFIED Saturday, Medical 0.25%) [place] Branch solution and Saturday in the evening. sodium Yes [id number] Apply to [facility] hypochlorit 2-26 area(s) ity o f e (DAKIN'S 00:00: every [place] MODIFIED Saturday, Medical 0.25%) [place] Branch solution and Saturday in the evening. sodium Yes [id number] Apply to [facility] hypochlorit 2-26 area(s) ity o f e (DAKIN'S 00:00: every [place] MODIFIED Saturday, Medical 0.25%) [place] Branch solution and Saturday in the evening. sodium Yes [id number] Apply to [facility] hypochlorit 2-26 area(s) ity o f e (DAKIN'S 00:00: every [place] MODIFIED Saturday, Medical 0.25%) [place] Branch solution and Saturday in the evening. sodium Yes [id number] Apply to [facility] hypochlorit 2-26 area(s) ity o f e (DAKIN'S 00:00: every [place] MODIFIED Saturday, Medical 0.25%) [place] Branch solution and Saturday in the evening. sulfamethox 0 202- No 1{tbl} Take 1 U nivers azole-trime 2-25 08-04 tablet by it y of thoprim 22:25: 00:00 mouth 2 [place] (BACTRIM) 53 :00 (two) Medical 400-80 mg times Branch per tablet daily. ciprofloxac 2020- No 500mg Take 500 Univers in HCl 2-25 02-25 mg by ity of (CIPRO) 500 22:25: 00:00 [place] mg tablet 53 :00 every 12 Medica l (twelve) Branch hours. rifAMPin Yes 300mg 300 mg, Unive rs (RIFADIN) 2-25 Oral, ity of capsule 300 15:00: DAILY, [place] mg 00 First dose Medical on [facility] Branch 08/04/20 at 0900, Until Discontinu ed, NORBERTO
Re ason for Anti-Infec tive: Documented Infection< br>Documen rony Infection Site: Skin / Soft Tissue
Duration of Therapy: 7 days minocycline Yes 100mg 100 mg, [place] [facility] (MINOCIN) 2-25 Oral, ity of capsule 100 12:00: Q12HA2, [place] mg 00 First dose Medical on [facility] Branch 08/04/20 at 0600, Until Discontinu ed, NORBERTO
Re ason for Anti-Infec tive: Documented Infection< br>Documen rony Infection Site: Skin / Soft Tissue<br& gt;Duratio n of Therapy: 7 days Polyethylen Yes [id number] 17g Take 1 Univers e Glycol 2-25 Packet by ity of 3350 17 00:00: mouth [place] gram powder 00 daily. Medica l Branch insulin Yes [id number] 30U inject 30 U nivers glargine 2-25 Units ity of 100 unit/mL 00:00: under the [place] injection 00 skin Medical daily. Branch Polyethylen Yes [id number] 17g Take 1 Univers e Glycol 2-25 Packet by ity of 3350 17 00:00: mouth [place] gram powder 00 daily. Medica l Branch insulin Yes [id number] 30U inject 30 U nivers glargine 2-25 Units ity of 100 unit/mL 00:00: under the [place] injection 00 skin Medical daily. Branch minocycline Yes [id number] 100mg Take 1 Univers 100 mg 2-25 capsule by ity of capsule 00:00: mouth [place] 00 every 12 Medical (twelve) Branch hours. rifAMPin 2020-0 Yes [id number] 300mg Take 1 U nivers 300 mg 2-25 capsule by ity of capsule 00:00: mouth [place] 00 every 12 Medical (twelve) Branch hours. Polyethylen 2020-0 Yes [id number] 17g Take 1 Univers e Glycol 2-25 Packet by ity of 3350 17 00:00: mouth [place] gram powder 00 daily. Medica l Branch insulin 2020-0 Yes [id number] 30U inject 30 U nivers glargine 2-25 Units ity of 100 unit/mL 00:00: under the [place] injection 00 skin Medical daily. Branch minocycline 2020-0 Yes [id number] 100mg Take 1 Univers 100 mg 2-25 capsule by ity of capsule 00:00: mouth [place] 00 every 12 Medical (twelve) Branch hours. rifAMPin 2020-0 Yes [id number] 300mg Take 1 U nivers 300 mg 2-25 capsule by ity of capsule 00:00: mouth [place] 00 every 12 Medical (twelve) Branch hours. Polyethylen 2020-0 Yes [id number] 17g Take 1 Univers e Glycol 2-25 Packet by ity of 3350 17 00:00: mouth [place] gram powder 00 daily. Medica l Branch insulin 2020-0 Yes [id number] 30U inject 30 U nivers glargine 2-25 Units ity of 100 unit/mL 00:00: under the [place] injection 00 skin Medical daily. Branch minocycline 2020-0 Yes [id number] 100mg Take 1 Univers 100 mg 2-25 capsule by ity of capsule 00:00: mouth [place] 00 every 12 Medical (twelve) Branch hours. rifAMPin 2020-0 Yes [id number] 300mg Take 1 U nivers 300 mg 2-25 capsule by ity of capsule 00:00: mouth [place] 00 every 12 Medical (twelve) Branch hours. Polyethylen 2020-0 Yes [id number] 17g Take 1 Univers e Glycol 2-25 Packet by ity of 3350 17 00:00: mouth [place] gram powder 00 daily. Medica l Branch insulin 2020-0 Yes [id number] 30U inject 30 U nivers glargine 2-25 Units ity of 100 unit/mL 00:00: under the [place] injection 00 skin Medical daily. Branch Polyethylen 2020-0 Yes [id number] 17g Take 1 Univers e Glycol 2-25 Packet by ity of 3350 17 00:00: mouth [place] gram powder 00 daily. Medica l Branch insulin 2020-0 Yes [id number] 30U inject 30 U nivers glargine 2-25 Units ity of 100 unit/mL 00:00: under the [place] injection 00 skin Medical daily. Branch Polyethylen 2020-0 Yes [id number] 17g Take 1 Univers e Glycol 2-25 Packet by ity of 3350 17 00:00: mouth [place] gram powder 00 daily. Medica l Branch insulin 2020-0 Yes [id number] 30U inject 30 U nivers glargine 2-25 Units ity of 100 unit/mL 00:00: under the [place] injection 00 skin Medical daily. Branch Polyethylen 2020-0 Yes [id number] 17g Take 1 Univers e Glycol 2-25 Packet by ity of 3350 17 00:00: mouth [place] gram powder 00 daily. Medica l Branch insulin 2020-0 Yes [id number] 30U inject 30 U nivers glargine 2-25 Units ity of 100 unit/mL 00:00: under the [place] injection 00 skin Medical daily. Branch Polyethylen 2020-0 Yes [id number] 17g Take 1 Univers e Glycol 2-25 Packet by ity of 3350 17 00:00: mouth [place] gram powder 00 daily. Medica l Branch insulin 2020-0 Yes [id number] 30U inject 30 U nivers glargine 2-25 Units ity of 100 unit/mL 00:00: under the [place] injection 00 skin Medical daily. Branch Polyethylen 2020-0 Yes [id number] 17g Take 1 Univers e Glycol 2-25 Packet by ity of 3350 17 00:00: mouth [place] gram powder 00 daily. Medica l Branch insulin 2020-0 Yes [id number] 30U inject 30 U nivers glargine 2-25 Units ity of 100 unit/mL 00:00: under the [place] injection 00 skin Medical daily. Branch Polyethylen 2020-0 Yes [id number] 17g Take 1 Univers e Glycol 2-25 Packet by ity of 3350 17 00:00: mouth [place] gram powder 00 daily. Medica l Branch insulin 2020-0 Yes [id number] 30U inject 30 U nivers glargine 2-25 Units ity of 100 unit/mL 00:00: under the [place] injection 00 skin Medical daily. Branch Polyethylen 2020-0 Yes [id number] 17g Take 1 Univers e Glycol 2-25 Packet by ity of 3350 17 00:00: mouth [place] gram powder 00 daily. Medica l Branch insulin 2020-0 Yes [id number] 30U inject 30 U nivers glargine 2-25 Units ity of 100 unit/mL 00:00: under the [place] injection 00 skin Medical daily. Branch Polyethylen 2020-0 Yes [id number] 17g Take 1 Univers e Glycol 2-25 Packet by ity of 3350 17 00:00: mouth [place] gram powder 00 daily. Medica l Branch insulin 2020- Yes [id number] 30U inject 30 U nivers glargine 2-25 Units ity of 100 unit/mL 00:00: under the [place] injection 00 skin Medical daily. Branch Polyethylen 2020-0 Yes [id number] 17g Take 1 Univers e Glycol 2-25 Packet by ity of 3350 17 00:00: mouth [place] gram powder 00 daily. Medica l Branch insulin 0 Yes [id number] 30U inject 30 U nivers glargine 2-25 Units ity of 100 unit/mL 00:00: under the [place] injection 00 skin Medical daily. Branch Polyethylen 2020-0 Yes [id number] 17g Take 1 Univers e Glycol 2-25 Packet by ity of 3350 17 00:00: mouth [place] gram powder 00 daily. Medica l Branch insulin 2020-0 Yes [id number] 30U inject 30 U nivers glargine 2-25 Units ity of 100 unit/mL 00:00: under the [place] injection 00 skin Medical daily. Branch Polyethylen 2020-0 Yes [id number] 17g Take 1 Univers e Glycol 2-25 Packet by ity of 3350 17 00:00: mouth [place] gram powder 00 daily. Medica l Branch insulin 2020-0 Yes [id number] 30U inject 30 U nivers glargine 2-25 Units ity of 100 unit/mL 00:00: under the [place] injection 00 skin Medical daily. Branch Polyethylen 2020-0 Yes [id number] 17g Take 1 Univers e Glycol 2-25 Packet by ity of 3350 17 00:00: mouth [place] gram powder 00 daily. Medica l Branch insulin 2020-0 Yes [id number] 30U inject 30 U nivers glargine 2-25 Units ity of 100 unit/mL 00:00: under the [place] injection 00 skin Medical daily. Branch minocycline 2020-0 1- No [id number] 100mg Take 1 Univers 100 mg 2-25 03-03 capsule by ity of capsule 00:00: 00:00 mouth [place] 00 :00 every 12 Medical (twelve) Branch hours. rifAMPin 2020-0 1- No [id number] 300mg Take 1 Univers 300 mg 2-25 03-03 capsule by ity of capsule 00:00: 00:00 mouth [place] 00 :00 every 12 Medical (twelve) Branch hours. minocycline 2020-0 1- No [id number] 100mg Take 1 Univers 100 mg 2-25 03-03 capsule by ity of capsule 00:00: 00:00 mouth [place] 00 :00 every 12 Medical (twelve) Branch hours. rifAMPin 2020-0 1- No [id number] 300mg Take 1 Univers 300 mg 2-25 03-03 capsule by ity of capsule 00:00: 00:00 mouth [place] 00 :00 every 12 Medical (twelve) Branch hours. minocycline 2020-0 1- No [id number] 100mg Take 1 Univers 100 mg 2-25 03-03 capsule by ity of capsule 00:00: 00:00 mouth [place] 00 :00 every 12 Medical (twelve) Branch hours. rifAMPin 2020-0 2021- No [id number] 300mg Take 1 Univers 300 mg 2-25 03-03 capsule by ity of capsule 00:00: 00:00 mouth [place] 00 :00 every 12 Medical (twelve) Branch hours. minocycline 2020-0 2021- No [id number] 100mg Take 1 Univers 100 mg 2-25 03-03 capsule by ity of capsule 00:00: 00:00 mouth [place] 00 :00 every 12 Medical (twelve) Branch hours. rifAMPin 2020- No [id number] 300mg Take 1 Univers 300 mg 2-25 03-03 capsule by ity of capsule 00:00: 00:00 mouth [place] 00 :00 every 12 Medical (twelve) Branch hours. minocycline 2020- No [id number] 100mg Take 1 Univers 100 mg 2-25 -25 capsule by ity of capsule 00:00: 00:00 mouth [place] 00 :00 every 12 Medical (twelve) Branch hours. rifAMPin 2020- No [id number] 300mg Take 1 Univers 300 mg 2-25 -25 capsule by ity of capsule 00:00: 00:00 mouth [place] 00 :00 every 12 Medical (twelve) Branch hours. lactated 2020- No 1000mL at 75 Unive rs ringers IV 08-02-24 mL/hr, ity of infusion 19:45: 12:31 1,000 mL, [place] as 1,000 mL 00 :04 IV Medical Infusion, Branch CONTINUOUS , Starting 08/02/20 at 1345, Until Sat08/03/20 at 0631, Routine, PACU vancomycin 2020- No [...] No 300mg 300 mg, Univ ers (RIFADIN) 07-30- Oral, ity of capsule 300 14:00: 16:48 Q12H, [place] mg 00 :39 First dose Medical on Sat Branch 07/30/20 at 0800, Until Discontinu ed, NORBERTO
Re ason for Anti-Infec tive: Documented Infection< br>Documen rony Infection Site: Skin / Soft Tissue
Duration of Therapy: 14 days minocycline 2020- No 100mg 100 mg, U nivers (MINOCIN) -30 07-20 Oral, ity of capsule 100 14:00: 16:48 Q12H, [place] mg 00 :39 First dose Medical on Sat Branch 07/30/20 at 0800, Until Discontinu ed, NORBERTO
Re ason for Anti-Infec tive: Documented Infection< br>Documen rony Infection Site: Skin / Soft Tissue
Duration of Therapy: 14 days ceFEPIme 2020- No 2000mg 2,000 mg, U nivers (MAXIPIME) 07-30- IV ity of 2,000 mg in 04:15: 07:41 [facility] [place] NaCl 0.9% 00 :00 Q8H ABX, 1 [...] 500 mg, IV Univers LE in NaCl 07-30- [place], it y of (iso-os) 00:30: 05:29 [...] 2020- No 1250mg 1,250 mg, Univers (VANCOCIN) 2-15 02-19 IV ity of 1,250 mg in 14:45: 22:49 [facility], [place] NaCl 0.9% 00 :20 Q24H ABX, Medic al (NS) 250 mL First dose Br anch piggyback on 07/25/20 at 0845, Until Discontinu ed, 250 mL
Reas on for Anti-Infec tive: Empiric Therapy for Suspected Infection< br>Empiric Therapy Site: Skin / Soft tissue
Duration of therapy: 72 hours Sliding Yes Subcutaneo [facility] ers Scale 2-14 us, TID ity of [...] Routine lactated 2020- No 1000mL at 999 [facility] ers ringers IV 07-22 mL/hr, ity of infusion 13:45: 17:04 1,000 mL, [place] as 1,000 mL 00 :00 IV Medical Infusion, [place] ONCE, 1 dose, 07/22/20 at 0745, Routine [...] ity of 2,000 mg in 04:05: 22:49 [place], [place] NaCl 0.9% 00 :20 Q8H ABX, [...] of 1,500 mg in 00:30: 10:33 from 1,[address] [place] [address] NaCl 0.9% 00 :27 mg = 15 [...] ity of 2,000 mg in 17:15: 23:43 [facility] [place] NaCl 0.9% 00 :19 Q12H ABX, Medic [...] Tue Med ical tablet 1 07/19/20 at [place] tablet 1215, Routine, PACU FENTanyl PF 2020- No 25ug 25 mcg, [facility] (SUBLIMAZE 07-19 Slow IV ity o f (PF)) 18:08: 18:58 [place], [place] injection 04 :50 Q5MIN PRN, Medi ventura 25 mcg 4 doses, Branch Starting Tu07/19/20 at 1208, Until Tu07/19/20 at 1258, Routine, Pain (scale 4-6), PACU sodium 2020- No Topical, Univer s hypochlorit 07-18-08 DAILY, ity o f e 0.025% 15:00: 12:33 [place] dose [place] ([facility] 00 :01 on Mon Medical solution 07/18/20 at Branch 0900, Until Discontinu ed, Routine acetaminoph Yes 1{tbl} 1 tablet, Univers en-codeine 07-18 Oral, ity of (TYLENOL 12:52: Q6HPRN, [place] #3) 300-30 54 Starting Medic al mg tablet 1 Mon 07/18/20 Br anch tablet at 0652, Until Discontinu ed, Routine, Pain (scale 7-10) acetaminoph Yes 650mg 650 mg, [facility] en 07-17 Oral, ity of (TYLENOL) 11:43: Q6HPRN, [place] tablet 650 24 Starting Medic al mg [...] 15mg/kg 1,500 mg Univers 1500 mg in 2 02-06 (rounded ity of NS 500 mL 18:00: [...] 17g 17 g, Unive rs e Glycol 07-15 Oral, ity of 3350 15:00: DAILY, [place] (MIRALAX) 00 First dose Medi ventura powder 17 g on Sat Branch 07/15/20 at 0900, Until Discontinu ed, Routine Sliding 2020- No Subcutaneo Uni vers Scale 07-1514 us, Q4H, ity of Insulin - 06:00: 12:45 [place] dose [place] Lispro 00 :00 (after Medical (HumaLOG) + last Branch Fsbg modificati Testing on) on Sat07/15/20 at 0000, Until Discontinu ed, Routine diph,pertus 2020- No .5mL 0.5 mL, Un amador (acel),teta 07-15- Intramuscu i ty of nus 05:00: 06:58 lar, ONCE, [place] (ADACEL) 00 :00 1 dose, Medical injection [place] 07/14/20 Bran ch 0.5 mL at 2300, Routine clindamycin 2020- No 600mg 600 mg, IV Univers in 5 % 07-15 Piggyback, ity of dextrose 04:00: 18:30 Q8H ABX, [place] (CLEOCIN) 00 :18 First dose Medi ventura 600 mg/50 on [place] Branch mL IV 07/14/20 at piggyback 2200, RTU 600 mg Until Discontinu ed, 50 mL
Reas on for Anti-Infec tive: Empiric Therapy for Suspected Infection< br>Empiric Therapy Site: Skin / Soft tissue
Duration of therapy: 7 days
Re stricted use approved by: Necrosteffi g fasciitis, necrotizin g skin and soft [...] of 350 00:15: 00:12 s, ONCE, 1 [place] BULK-100 00 :00 dose, [place] Medica l mL) 07/14/20 at Branch injection 1815, 120 mL Routine glucagon Yes 1mg 1 mg, Univers (GLUCAGEN 2 Intramuscu ity of DIAGNOSTIC 23:53: lar, PRN, [place] KIT) 28 Starting Medical injection 1 [place] 07/14/20 Br anch mg at 1753, Until Discontinu ed, NORBERTO, Blood Glucose < or = 70 mg/dL and patient is unable to swallow or has mental changes. dextrose 50 Yes 25mL 25 mL, Univ ers % in water 204 Slow IV ity of (D50W) 23:53: Push, PRN, [place] injection 28 Starting Medica l 25 mL [place] 07/14/20 Branch at 1753, Until Discontinu ed, NORBERTO, Blood Glucose < or = 70 mg/dL and patient is unable to swallow or has mental status changes. ceFEPIme 0 2020- No 2000mg 2,000 mg, U nivers (MAXIPIME) 2 02-08 IV ity of 2,000 mg [facility]:00[facility] [place] NaCl 0.9% 00 :14 Q12H ABX, Medic al (NS) 100 mL First dose Br anch MINI-BAG on Rebecca 07/14/20 at 1700, Until Discontinu ed, 100 mL
R debra for Anti-Infec tive: Empiric Therapy for Suspected Infection< br>Empiric Therapy Site: Skin / Soft tissue
Duration of therapy: 7 days Sliding 2020- No Subcutaneo Uni vers Scale 07-1405 us, TID ity of Insulin - 23:00: [...] Yes 4mg 4 mg, Slow Univers (ZOFRAN 2 IV Push, ity of (PF)) 21:57: Q6HPRN, [place] injection 4 14 Starting Medi ventura mg [facility] 07/14/20 Branch at 1557, Until Discontinu ed, Routine, Nausea and Vomiting (N/V) sennosides Yes 8.6mg 8.6 mg, Uni vers (SENOKOT) 07-14 Oral, ity of tablet 8.6 21:57: QDAILYPRN, [place] mg 07 Starting Medical [facility] 07/14/20 Branch at 1557, Until Discontinu ed, Routine, Constipati on traMADoL No 50mg 50 mg, Univer s (ULTRAM) 07-14 Oral, ity of tablet 50 21:56: 21:55 Q8HPRN, [place] mg 47 :47 Starting Medical [facility] 07/14/20 Branch at 1556, Until 07/16/20 at 1555, Routine, Pain (scale 4-6) acetaminoph 2020- No 650mg 650 mg, U nivers en 07-14 Oral, ity of (TYLENOL) 21:56: 11:43 Q6HPRN, [place] tablet 650 43 :42 Starting Medic al mg [facility] 07/14/20 Branch at 1556, Until 07/17/20 [...] ONCE, 1 Medical (NS) 250 mL dose, [facility] VIAL-MATE 07/14/20 at IV 1200, 250 piggyback mL
Reas on for Anti-Infec tive: Documented Infection< br>Documen rony Infection Site: Skin / Soft Tissue
Duration of Therapy: 7 days diclofenac 2020- No 75mg Take 1 Univ ers 75 mg EC 11-16 tablet by ity o f tablet 00:00: 00:00 mouth 2 [place] 00 :00 (two) Medical times Branch daily with meals. traMADOL 50 2020- No 50mg Take 1 Uni vers mg [...] tablet 00 :00 daily. Medical Branch metFORMIN 2016- Yes [id number] 1000mg Take 1 Univers 1,000 mg 1-04 tablet by ity of tablet 00:00: mouth 2 [place] (two) Medical times Branch daily with meals. gabapentin 2017- Yes [id number] 100mg Take 1 Univers 100 mg 1-04 capsule by ity of capsule 00:00: mouth at [place] 00 bedtime. Medical Branch blood sugar Yes Use as Univ ers diagnostic 1-04 directed, ity of (ACCU-CHEK 00:00: TID, [place] INNA) 00 DX:E11.9 Medical strip Branch Lancets Yes Use as Univers (ACCU-CHEK 1-04 directed, ity of FASTCLIX) 00:00: TID, [place] Mis 00 DX:E11.9 Medical Branch metFORMIN 2016- Yes [id number] 1000mg Take 1 Univers 1,000 mg 1-04 tablet by ity of tablet 00:00: mouth 2 [place] (two) Medical times [place] daily with meals. gabapentin 2016- Yes [id number] 100mg Take 1 Univers 100 mg 1-04 capsule by ity of capsule 00:00: mouth at [place] 00 bedtime. Medical Branch blood sugar Yes Use as Univ ers diagnostic 1-04 directed, ity of (ACCU-CHEK 00:00: TID, [place] INNA) 00 DX:E11.9 Medical strip Branch Lancets Yes Use as Univers (ACCU-CHEK 1-04 directed, ity of FASTCLIX) 00:00: TID, [place] Misc 00 DX:E11.9 Medical Branch metFORMIN 2016- Yes [id number] 1000mg Take 1 Univers 1,000 mg 1-04 tablet by ity of tablet 00:00: mouth 2 [place] (two) Medical times [place] daily with meals. gabapentin 2017- Yes [id number] 100mg Take 1 Univers 100 mg 1-04 capsule by ity of capsule 00:00: mouth at [place] 00 bedtime. Medical Branch blood sugar Yes Use as Univ ers diagnostic 1-04 directed, ity of (ACCU-CHEK 00:00: TID, [place] INNA) 00 DX:E11.9 Medical strip Branch Lancets 2017-0 Yes Use as Univers (ACCU-CHEK 1-04 directed, ity of FASTCLIX) 00:00: TID, [place] Mis 00 DX:E11.9 Medical Branch metFORMIN 2017-0 Yes [id number] 1000mg Take 1 Univers 1,000 mg 1-04 tablet by ity of tablet 00:00: mouth 2 [place] (two) Medical times Branch daily with meals. gabapentin 2017-0 Yes [id number] 100mg Take 1 Univers 100 mg 1-04 capsule by ity of capsule 00:00: mouth at [place] 00 bedtime. Medical Branch blood sugar 2017-0 Yes Use as Univ ers diagnostic 1-04 directed, ity of (ACCU-CHEK 00:00: TID, [place] INNA) 00 DX:E11.9 Medical strip Branch Lancets 2017-0 Yes Use as Univers (ACCU-CHEK 1-04 directed, ity of FASTCLIX) 00:00: [facility]ID, [facility] 00 DX:E11.9 Medical Branch metFORMIN 2017-0 Yes [id number] 1000mg Take 1 Univers 1,000 mg 1-04 tablet by ity of tablet 00:00: mouth 2 [place] (two) Medical times [place] daily with meals. gabapentin 2017-0 Yes [id number] 100mg Take 1 Univers 100 mg 1-04 capsule by ity of capsule 00:00: mouth at [place] [address] bedtime. Medical Branch blood sugar 2017-0 Yes Use as Univ ers diagnostic 1-04 directed, ity of (ACCU-CHEK 00:00: TID, [place] INNA) 00 DX:E11.9 Medical strip Branch Lancets 2017-0 Yes Use as Univers (ACCU-CHEK 1-04 directed, ity of FASTCLIX) 00:00: TID, [place] Mis 00 DX:E11.9 Medical Branch metFORMIN 2017-0 Yes [id number] 1000mg Take 1 Univers 1,000 mg 1-04 tablet by ity of tablet 00:00: mouth 2 [place] 00 (two) Medical times Branch daily with meals. gabapentin 2017-0 Yes [id number] 100mg Take 1 Univers 100 mg 1-04 capsule by ity of capsule 00:00: mouth at [place] [address] bedtime. Medical Branch blood sugar 2017-0 Yes Use as Univ ers diagnostic 1-04 directed, ity of (ACCU-CHEK 00:00: TID, [place] INNA) 00 DX:E11.9 Medical strip Branch Lancets 2017-0 Yes Use as Univers (ACCU-CHEK 1-04 directed, ity of FASTCLIX) 00:00: TID, [place] Misc 00 DX:E11.9 Medical Branch metFORMIN 2017-0 Yes [id number] 1000mg Take 1 Univers 1,000 mg 1-04 tablet by ity of tablet 00:00: mouth 2 [place] (two) Medical times Branch daily with meals. gabapentin 2017-0 Yes [id number] 100mg Take 1 Univers 100 mg 1-04 capsule by ity of capsule 00:00: mouth at [place] 00 bedtime. Medical Branch blood sugar 2017-0 Yes Use as Univ ers diagnostic 1-04 directed, ity of (ACCU-CHEK 00:00: TID, [place] INNA) 00 DX:E11.9 Medical strip Branch Lancets 2017-0 Yes Use as Univers (ACCU-CHEK 1-04 directed, ity of FASTCLIX) 00:00: TID, [place] Misc 00 DX:E11.9 Medical Branch metFORMIN 2017-0 Yes [id number] 1000mg Take 1 Univers 1,000 mg 1-04 tablet by ity of tablet 00:00: mouth 2 [place] (two) Medical times [place] daily with meals. gabapentin 2017-0 Yes [id number] 100mg Take 1 Univers 100 mg 1-04 capsule by ity of capsule 00:00: mouth at [place] 00 bedtime. Medical Branch blood sugar 2017-0 Yes Use as Univ ers diagnostic 1-04 directed, ity of (ACCU-CHEK 00:00: TID, [place] INNA) 00 DX:E11.9 Medical strip Branch Lancets 2017-0 Yes Use as Univers (ACCU-CHEK 1-04 directed, ity of FASTCLIX) 00:00: TID, [place] Misc 00 DX:E11.9 Medical Branch metFORMIN 2017-0 Yes [id number] 1000mg Take 1 Univers 1,000 mg 1-04 tablet by ity of tablet 00:00: mouth 2 [place] (two) Medical times [place] daily with meals. gabapentin 2017-0 Yes [id number] 100mg Take 1 Univers 100 mg 1-04 [...] 00 DX:E11.9 Medical Branch metFORMIN 2017-0 Yes [id number] 1000mg Take 1 Univers 1,000 mg 1-04 tablet by ity of tablet 00:00: mouth 2 [place] 00 (two) Medical times Branch daily with meals. gabapentin 2017- Yes [id number] 100mg Take 1 Univers 100 mg 1-04 capsule by ity of capsule 00:00: mouth at [place] 00 bedtime. Medical Branch blood sugar Yes Use as Univ ers diagnostic 1-04 directed, ity of (ACCU-CHEK 00:00: TID, [place] INNA) 00 DX:E11.9 Medical strip Branch Lancets Yes Use as Univers (ACCU-CHEK 1-04 directed, ity of FASTCLIX) 00:00: TID, [place] Misc 00 DX:E11.9 Medical Branch metFORMIN 2016-0 Yes [id number] 1000mg Take 1 Univers 1,000 mg 1-04 tablet by ity of tablet 00:00: mouth 2 [place] 00 (two) Medical times [place] daily with meals. gabapentin 2016-0 Yes [id number] 100mg Take 1 Univers 100 mg 1-04 capsule by ity of capsule 00:00: mouth at [place] 00 bedtime. Medical Branch blood sugar 2017-0 Yes Use as Univ ers diagnostic 1-04 directed, ity of (ACCU-CHEK 00:00: TID, [place] INNA) 00 DX:E11.9 Medical strip Branch Lancets 2017-0 Yes Use as Univers (ACCU-CHEK 1-04 directed, ity of FASTCLIX) 00:00: TID, [place] Misc 00 DX:E11.9 Medical Branch metFORMIN 2017-0 Yes [id number] 1000mg Take 1 Univers 1,000 mg 1-04 tablet by ity of tablet 00:00: mouth 2 [place] 00 (two) Medical times Branch daily with meals. gabapentin 2017-0 Yes [id number] 100mg Take 1 Univers 100 mg 1-04 capsule by ity of capsule 00:00: mouth at [place] 00 bedtime. Medical Branch blood sugar 2017-0 Yes Use as Univ ers diagnostic 1-04 directed, ity of (ACCU-CHEK 00:00: TID, [place] INNA) 00 DX:E11.9 Medical strip Branch Lancets 2016-0 Yes Use as Univers (ACCU-CHEK 1-04 directed, ity of FASTCLIX) 00:00: TID, [place] Misc 00 DX:E11.9 Medical Branch metFORMIN 2017-0 Yes [id number] 1000mg Take 1 Univers 1,000 mg 1-04 tablet by ity of tablet 00:00: mouth 2 [place] (two) Medical times [place] daily with meals. gabapentin 2017- Yes [id number] 100mg Take 1 Univers 100 mg 1-04 capsule by ity of capsule 00:00: mouth at [place] 00 bedtime. Medical Branch blood sugar Yes Use as Univ ers diagnostic 1-04 directed, ity of (ACCU-CHEK 00:00: TID, [place] INNA) 00 DX:E11.9 Medical strip Branch Lancets Yes Use as Univers (ACCU-CHEK 1-04 directed, ity of FASTCLIX) 00:00: TID, [place] Misc 00 DX:E11.9 Medical Branch metFORMIN 2016-0 Yes [id number] 1000mg Take 1 Univers 1,000 mg 1-04 tablet by ity of tablet 00:00: mouth 2 [place] (two) Medical times [place] daily with meals. gabapentin 2017- Yes [id number] 100mg Take 1 Univers 100 mg 1-04 capsule by ity of capsule 00:00: mouth at [place] 00 bedtime. Medical Branch blood sugar 2017-0 Yes Use as Univ ers diagnostic 1-04 directed, ity of (ACCU-CHEK 00:00: TID, [place] INNA) 00 DX:E11.9 Medical strip Branch Lancets 2017-0 Yes Use as Univers (ACCU-CHEK 1-04 directed, ity of FASTCLIX) 00:00: TID, [place] Misc 00 DX:E11.9 Medical Branch metFORMIN 2017-0 Yes [id number] 1000mg Take 1 Univers 1,000 mg 1-04 tablet by ity of tablet 00:00: mouth 2 [place] 00 (two) Medical times Branch daily with meals. gabapentin 2017-0 Yes [id number] 100mg Take 1 Univers 100 mg 1-04 capsule by ity of capsule 00:00: mouth at [place] 00 bedtime. Medical Branch blood sugar 2017- Yes Use as Univ ers diagnostic 1-04 directed, ity of (ACCU-CHEK 00:00: TID, [place] INNA) 00 DX:E11.9 Medical strip Branch Lancets 2016- Yes Use as Univers (ACCU-CHEK 1-04 directed, ity of FASTCLIX) 00:00: TID, [place] Misc 00 DX:E11.9 Medical Branch metFORMIN 2017-0 Yes [id number] 1000mg Take 1 Univers 1,000 mg 1-04 tablet by ity of tablet 00:00: mouth 2 [place] 00 (two) Medical times Branch daily with meals. gabapentin 2016- Yes [id number] 100mg Take 1 Univers 100 mg 1-04 capsule by ity of capsule 00:00: mouth at [place] 00 bedtime. Medical Branch blood sugar Yes Use as Univ ers diagnostic 1-04 directed, ity of (ACCU-CHEK 00:00: TID, [place] INNA) 00 DX:E11.9 Medical strip Branch Lancets Yes Use as Univers (ACCU-CHEK 1-04 directed, ity of FASTCLIX) 00:00: TID, [place] Misc 00 DX:E11.9 Medical Branch metFORMIN 2016-0 Yes [id number] 1000mg Take 1 Univers 1,000 mg 1-04 tablet by ity of tablet 00:00: mouth 2 [place] 00 (two) Medical times [place] daily with meals. gabapentin 2017- Yes [id number] 100mg Take 1 Univers 100 mg 1-04 capsule by ity of capsule 00:00: mouth at [place] 00 bedtime. Medical Branch blood sugar 2017 Yes Use as Univ ers diagnostic 1-04 directed, ity of (ACCU-CHEK 00:00: TID, [place] INNA) 00 DX:E11.9 Medical strip Branch Lancets 2017-0 Yes Use as Univers (ACCU-CHEK 1-04 directed, ity of FASTCLIX) 00:00: TID, [place] Misc 00 DX:E11.9 Medical Branch atorvastati 2016-0 2021- No [id number] 40mg Take 1 Univers n (LIPITOR) 1-04 02-04 tablet by it y of 40 mg 00:00: 00:00 mouth at [place] tablet 00 :00 bedtime. Medical Branch lisinopril 2020- No [id number] 10mg Take 1 Univers 10 mg 06-13 tablet by ity of tablet 00:00: 00:00 mouth [place] 00 :00 daily. Medical Branch neomycin-po 2015-06- No Unive rs lymyxin-dex 07-14 ity of amethasone 00:00: 00:00 [place] (MAXITROL) 00 :00 Medical 3.5mg/mL-10 Branch ,000 unit/mL-0.1 % ophthalmic suspension drops insulin 2015-06- No [id number] 15U inject 15 Univers degludec 08-04 Units ity of (TRESIBA 00:00: 00:00 under [...] Immunizations Ordered Filled Immunization Date Status Comments [facility] e Immunization Name Name SARS-COV-2 COVID-19 2021-04-25 Completed Unive rsity of MODERNA BOOSTER 00:00:00 [facility] VACCINE Branch HEPLISAV HEP B, 2020-10-19 Completed Universit y of ADULT 2 DOSE, IM 00:00:00 [facility], 2020-10-19 Completed Universit y of ADULT 2 DOSE, IM 00:00:00 [facility] HEPLISAV HEP B, 2020-10-19 Completed Universit y of ADULT 2 DOSE, IM 00:00:00 [facility] SARS-COV-2 COVID-19 2020-10-11 Completed Unive rsity of MODERNA VACCINE 00:00:00 [facility] SARS-COV-2 COVID-19 2020-10-11 Completed Unive rsity of MODERNA VACCINE 00:00:00 [place] Med ical Branch SARS-COV-2 COVID-19 2020-10-11 Completed Unive rsity of MODERNA VACCINE 00:00:00 [place] Med ical Branch SARS-COV-2 COVID-19 2020-10-11 Completed Unive rsity of MODERNA VACCINE 00:00:00 [place] Med ical Branch SARS-COV-2 COVID-19 2020-09-13 Completed Unive rsity of MODERNA VACCINE 00:00:00 [place] Med ical Branch SARS-COV-2 COVID-19 2020-09-13 Completed Unive rsity of MODERNA VACCINE 00:00:00 [facility] ical Branch SARS-COV-2 COVID-19 2020-09-13 Completed Unive rsity of MODERNA VACCINE 00:00:00 [facility] ical Branch SARS-COV-2 COVID-19 2020-09-13 Completed Unive rsity of MODERNA VACCINE 00:00:00 [facility] ical Branch Pneumococcal 2020-08-31 Completed University o f Polysaccharide, 00:00:00 [place] Med ical PPSV23 (PNEUMOVAX) Branch Pneumococcal 2020-08-31 Completed University o f Polysaccharide, 00:00:00 [place] Med ical PPSV23 (PNEUMOVAX) Branch Pneumococcal 2020-08-31 Completed University o f Polysaccharide, 00:00:00 [place] Med ical PPSV23 (PNEUMOVAX) Branch Pneumococcal 2020-08-31 Completed University o f Polysaccharide, 00:00:00 [place] Med ical PPSV23 (PNEUMOVAX) Branch Pneumococcal 2020-08-31 Completed University o f Polysaccharide, 00:00:00 [place] Med ical PPSV23 (PNEUMOVAX) Branch Pneumococcal 2020-08-31 Completed University o f Polysaccharide, 00:00:00 [place] Med ical PPSV23 (PNEUMOVAX) Branch Pneumococcal 2020-08-31 Completed University o f Polysaccharide, 00:00:00 [facility] ical PPSV23 (PNEUMOVAX) Branch Influenza Virus 2020-08-10 Completed Universit y of Vaccine Quad .5 mL 00:00:00 [facility] IM 6+ MO Branch HEPLISAV HEP B, 2020-08-10 Completed Universit y of ADULT 2 DOSE, IM 00:00:00 [facility] dical Branch Influenza Virus 2020-08-10 Completed Universit y of Vaccine Quad .5 mL 00:00:00 [facility] IM 6+ MO Branch HEPLISAV HEP B, 2020-08-10 Completed Universit y of ADULT 2 DOSE, IM 00:00:00 [facility] dical Branch Influenza Virus 2020-08-10 Completed Universit y of Vaccine Quad .5 mL 00:00:00 [facility] IM 6+ MO Branch HEPLISAV HEP B, 2020-08-10 Completed Universit y of ADULT 2 DOSE, IM 00:00:00 [facility] dical Branch Influenza Virus 2020-08-10 Completed Universit y of Vaccine Quad .5 mL 00:00:00 [facility] IM 6+ MO Branch HEPLISAV HEP B, 2020-08-10 Completed Universit y of ADULT 2 DOSE, IM 00:00:00 [facility] dical Branch Influenza Virus 2020-08-10 Completed Universit y of Vaccine Quad .5 mL 00:00:00 [facility] IM 6+ MO Branch HEPLISAV HEP B, 2020-08-10 Completed Universit y of ADULT 2 DOSE, IM 00:00:00 [facility] dical Branch Influenza Virus 2020-08-10 Completed Universit y of Vaccine Quad .5 mL 00:00:00 [facility] IM 6+ MO Branch HEPLISAV HEP B, 2020-08-10 Completed Universit y of ADULT 2 DOSE, IM 00:00:00 [facility] dical Branch Influenza Virus 2020-08-10 Completed Universit y of Vaccine Quad .5 mL 00:00:00 [facility] IM 6+ MO Branch HEPLISAV HEP B, 2020-08-10 Completed Universit y of ADULT 2 DOSE, IM 00:00:00 [facility] dical Branch Influenza Virus 2020-08-10 Completed Universit y of Vaccine Quad .5 mL 00:00:00 [facility] IM 6+ MO Branch HEPLISAV HEP B, 2020-08-10 Completed Universit y of ADULT 2 DOSE, IM 00:00:00 [facility] dical Branch Influenza Virus 2020-08-10 Completed Universit y of Vaccine Quad .5 mL 00:00:00 [facility] IM 6+ MO Branch HEPLISAV HEP B, 2020-08-10 Completed Universit y of ADULT 2 DOSE, IM 00:00:00 [facility] dical Branch Influenza Virus 2020-08-10 Completed Universit y of Vaccine Quad .5 mL 00:00:00 [facility] IM 6+ MO Branch HEPLISAV HEP B, 2020-08-10 Completed Universit y of ADULT 2 DOSE, IM 00:00:00 [facility] dical [place] Influenza Virus 2020-08-10 Completed Universit y of Vaccine Quad .5 mL 00:00:00 [facility] IM 6+ MO Branch HEPLISAV HEP B, 2020-08-10 Completed Universit y of ADULT 2 DOSE, IM 00:00:00 [facility] TDAP 2020-07-15 Completed University [facility] y of Vaccine Quad IM 3+ 00:00:00 [facility] Influenza Virus 2016-03-22 Completed Universit y of Vaccine Quad IM 3+ 00:00:00 [facility] Influenza Virus 2016-03-22 Completed Universit y of Vaccine Quad IM 3+ 00:00:00 [facility] Influenza Virus 2016-03-22 Completed Universit y of Vaccine Quad IM 3+ 00:00:00 [facility] Influenza Virus 2016-03-22 Completed Universit y of Vaccine Quad IM 3+ 00:00:00 [facility] Influenza Virus 2016-03-22 Completed Universit y of Vaccine Quad IM 3+ 00:00:00 [facility] Influenza Virus 2016-03-22 Completed Universit y of Vaccine Quad IM 3+ 00:00:00 [facility] Influenza Virus 2016-03-22 Completed Universit y of Vaccine Quad IM 3+ 00:00:00 [facility] Influenza Virus 2016-03-22 Completed Universit y of Vaccine Quad IM 3+ 00:00:00 [facility] Influenza Virus 2016-03-22 Completed Universit y of Vaccine Quad IM 3+ 00:00:00 [facility] Influenza Virus 2016-03-22 Completed Universit y of Vaccine Quad IM 3+ 00:00:00 [facility] Influenza Virus 2016-03-22 Completed Universit y of Vaccine Quad IM 3+ 00:00:00 [facility] Influenza Virus 2016-03-22 Completed Universit y of Vaccine Quad IM 3+ 00:00:00 [facility] Influenza Virus 2016-03-22 Completed Universit y of Vaccine Quad IM 3+ 00:00:00 [facility] Influenza Virus 2016-03-22 Completed Universit y of Vaccine Quad IM 3+ 00:00:00 [facility] Influenza Virus 2016-03-22 Completed Universit y of Vaccine Quad IM 3+ 00:00:00 [facility] Influenza Virus 2016-03-22 Completed Universit y of Vaccine Quad IM 3+ 00:00:00 [facility] Influenza Virus 2014-08-27 Completed Universit y of Vaccine Quad IM 3+ 00:00:00 [facility] Pneumococcal 2014-08-27 Completed University o f Polysaccharide, 00:00:00 [place] Med ical PPSV23 (PNEUMOVAX) [place] Influenza Virus 2014-08-27 Completed Universit y of Vaccine Quad IM 3+ 00:00:00 [facility] Pneumococcal 2014-08-27 Completed University o f Polysaccharide, 00:00:00 [place] Med ical PPSV23 (PNEUMOVAX) [place] Influenza Virus 2014-08-27 Completed Universit y of Vaccine Quad IM 3+ 00:00:00 [facility] Pneumococcal 2014-08-27 Completed University o f Polysaccharide, 00:00:00 [place] Med ical PPSV23 (PNEUMOVAX) Branch Influenza Virus 2014-08-27 Completed Universit y of Vaccine Quad IM 3+ 00:00:00 [facility] Pneumococcal 2014-08-27 Completed University o f Polysaccharide, 00:00:00 [place] Med ical PPSV23 (PNEUMOVAX) Branch Influenza Virus 2014-08-27 Completed Universit y of Vaccine Quad IM 3+ 00:00:00 [facility] Pneumococcal 2014-08-27 Completed University o f Polysaccharide, 00:00:00 [place] Med ical PPSV23 (PNEUMOVAX) Branch Influenza Virus 2014-08-27 Completed Universit y of Vaccine Quad IM 3+ 00:00:00 [facility] Pneumococcal 2014-08-27 Completed University o f Polysaccharide, 00:00:00 [place] Med ical PPSV23 (PNEUMOVAX) Branch Influenza Virus 2014-08-27 Completed Universit y of Vaccine Quad IM 3+ 00:00:00 [facility] Pneumococcal 2014-08-27 Completed University o f Polysaccharide, 00:00:00 [place] Med ical PPSV23 (PNEUMOVAX) Branch Influenza Virus 2014-08-27 Completed Universit y of Vaccine Quad IM 3+ 00:00:00 [facility] Pneumococcal 2014-08-27 Completed University o f Polysaccharide, 00:00:00 [place] Med ical PPSV23 (PNEUMOVAX) Branch Influenza Virus 2014-08-27 Completed Universit y of Vaccine Quad IM 3+ 00:00:00 [facility] Pneumococcal 2014-08-27 Completed University o f Polysaccharide, 00:00:00 [place] Med ical PPSV23 (PNEUMOVAX) Branch Influenza Virus 2014-08-27 Completed Universit y of Vaccine Quad IM 3+ 00:00:00 [facility] Pneumococcal 2014-08-27 Completed University o f Polysaccharide, 00:00:00 [place] Med ical PPSV23 (PNEUMOVAX) Branch Influenza Virus 2014-08-27 Completed Universit y of Vaccine Quad IM 3+ 00:00:00 [facility] Pneumococcal 2014-08-27 Completed University o f Polysaccharide, 00:00:00 [place] Med ical PPSV23 (PNEUMOVAX) Branch Influenza Virus 2014-08-27 Completed Universit y of Vaccine Quad IM 3+ 00:00:00 [facility] Pneumococcal 2014-08-27 Completed University o f Polysaccharide, 00:00:00 [place] Med ical PPSV23 (PNEUMOVAX) Branch Influenza Virus 2014-08-27 Completed Universit y of Vaccine Quad IM 3+ 00:00:00 [facility] Pneumococcal 2014-08-27 Completed University o f Polysaccharide, 00:00:00 [place] Med ical PPSV23 (PNEUMOVAX) Branch Influenza Virus 2014-08-27 Completed Universit y of Vaccine Quad IM 3+ 00:00:00 [facility] Pneumococcal 2014-08-27 Completed University o f Polysaccharide, 00:00:00 [place] Med ical PPSV23 (PNEUMOVAX) Branch Influenza Virus 2014-08-27 Completed Universit y of Vaccine Quad IM 3+ 00:00:00 [facility] Pneumococcal 2014-08-27 Completed University o f Polysaccharide, 00:00:00 [place] Med ical PPSV23 (PNEUMOVAX) Branch Influenza Virus 2014-08-27 Completed [facility] Vaccine Quad IM 3+ 00:00:00 [facility] Pneumococcal 2014-08-27 Completed University o f Polysaccharide, 00:00:00 [place] [facility] PPSV23 (PNEUMOVAX) Branch Influenza Virus 2014-08-27 Completed Universit y of Vaccine Quad IM 3+ 00:00:00 [facility] Pneumococcal 2014-08-27 Completed University o f Polysaccharide, 00:00:00 [place] [facility] PPSV23 (PNEUMOVAX) Branch Vital Signs Vital Name Observation Time Observation Value Comments Source Systolic blood 2020-10-19 14:07:00 120 mm[Hg] Univer sity of pressure [facility] Diastolic blood 2020-10-19 14:07:00 75 mm[Hg] Unive rsity of pressure [facility] Heart rate 2020-10-19 14:07:00 88 /min [facility] Body temperature 2020-10-19 14:07:00 36.78 Carmela [facility] 2020-10-19 14:07:00 18 /min [facility] Body height 2020-10-19 14:07:00 177.8 cm [facility] Body weight 2020-10-19 14:07:00 98.294 kg [facility] [place] [facility] BMI 2020-10-19 14:07:00 31.09 kg/m2 [facility] [place] [facility] Systolic blood 2020-08-31 14:26:00 122 mm[Hg] Univer sity of pressure [place] [facility] Diastolic blood 2020-08-31 14:26:00 79 mm[Hg] Unive rsity of pressure [place] [facility] Heart rate 2020-08-31 14:26:00 99 /min [facility] [place] [facility] Body temperature 2020-08-31 14:26:00 36.89 Carmela [facility] [place] [facility] Body height 2020-08-31 14:26:00 177.8 cm [facility] [place] [facility] Body weight 2020-08-31 14:26:00 84.823 kg [facility] [place] [facility] BMI 2020-08-31 14:26:00 26.83 kg/m2 [facility] [place] [facility] Systolic blood 2020-08-10 15:24:00 82 mm[Hg] Univer sity of pressure [place] [facility] Diastolic blood 2020-08-10 15:24:00 53 mm[Hg] Unive rsity of pressure [place] [facility] Heart rate 2020-08-10 15:24:00 108 /min [facility] [place] [facility] Body temperature 2020-08-10 15:21:00 36.56 Carmela [facility] [place] [facility] Respiratory rate 2020-08-10 15:21:00 16 /min [facility] [place] [facility] Body height 2020-08-10 15:21:00 177.8 cm [facility] [place] [facility] Body weight 2020-08-10 15:21:00 84.823 kg [facility] [place] [facility] BMI 2020-08-10 15:21:00 26.83 kg/m2 [facility] [place] [facility] Body temperature 2020-08-09 16:16:00 36.22 Carmela [facility] [place] [facility] Body weight 2020-08-09 16:16:00 79.652 kg [facility] [place] [facility] BMI 2020-08-09 16:16:00 25.20 kg/m2 [facility] [place] [facility] Systolic blood 2020-08-04 22:01:00 145 mm[Hg] Univer sity [facility] Diastolic blood 2020-08-04 22:01:00 81 mm[Hg] [facility] Heart rate 2020-08-04 22:01:00 89 /min [facility] Body temperature 2020-08-04 22:01:00 36.61 Carmela [facility] Respiratory rate 2020-08-04 22:01:00 18 /min [facility] Oxygen saturation in 2020-08-04 22:01:00 98 /min [facility] Arterial blood by [facility] Pulse oximetry [place] Body weight 2020-07-28 12:03:00 84.959 kg [facility] BMI 2020-07-28 12:03:00 26.87 kg/m2 [facility] Body height 2020-07-14 20:47:00 177.8 cm [facility] Procedures Procedure Date / Time Performing Clinician Source Performed SARS-COV-2 COVID-19 2021-04-25 20:23:50 Doctor Unassigned, [facility] VACCINE BOOSTER,0.25ML,IM [place] [facility] (MODERNA) HEPLISAV HEP B 2020-10-19 14:24:37 Moody Hernandez [facility] VACCINE,ADULT 2 DOSE,IM Medical Branch PNEUMOCOCCAL VACCINE, 2020-08-31 14:43:35 Moody Hernandez [facility] 23-VALENT (PNEUMOVAX) Medical Br anch HEPLISAV HEP B 2020-08-10 16:05:26 Moody Hernandez [facility] VACCINE,ADULT 2 DOSE,IM Medical Branch FLU VACC ([id number]), 6+ 2020-08-10 16:03:59 [facility]AD Medical Branch ASSIGNMENT OF BENEFITS 2020-08-09 16:03:44 [facility] [place] [facility] [place] POCT GLUCOSE (AUTOMATED) 2020-08-04 23:33:00 Maryann Russ [facility] POCT GLUCOSE (AUTOMATED) 2020-08-04 19:36:00 Maryann Russ [facility] PROTEIN CREAT RATIO URINE 2020-08-04 17:56:00 Poly Maguire [facility] RANDOM Medical Branch SODIUM, URINE RANDOM 2020-08-04 17:56:00 Poly Maguire [facility] POCT GLUCOSE (AUTOMATED) 2020-08-04 15:10:00 Maryann Russ [facility] MAGNESIUM 2020-08-04 10:13:00 Filiberto Lopez [facility] BASIC METABOLIC PANEL 2020-08-04 10:13:00 Filiberto Lopez [facility] (NA, K, CL, CO2, GLUCOSE, Medica l Branch BUN, CREATININE, CA) CBC WITHOUT DIFF 2020-08-04 10:07:00 Filiberto Lopez [facility] BASIC METABOLIC PANEL 2020-08-04 04:23:00 Filiberto Lopez [facility] (NA, K, CL, CO2, GLUCOSE, Medica l Branch BUN, CREATININE, CA) POCT GLUCOSE (AUTOMATED) 2020-08-04 03:10:00 Maryann Russ [facility] POCT GLUCOSE (AUTOMATED) 2020-08-03 22:59:00 Maryann Russ [facility] POCT GLUCOSE (AUTOMATED) 2020-08-03 19:05:00 Maryann Russ [facility] POCT GLUCOSE (AUTOMATED) 2020-08-03 15:46:00 Maryann Russ [facility] POCT GLUCOSE (AUTOMATED) 2020-08-03 03:26:00 Maryann Russ [facility] POCT GLUCOSE (AUTOMATED) 2020-08-02 23:07:00 Maryann Russ [facility] FUNGUS (ROUTINE) CULTURE 2020-08-02 19:33:00 Tisha Burrell [facility] TISSUE 2020-08-02 19:33:00 Mary Burrell [facility] CULTURE(AEROBIC/ANAEROBIC A Medica l Branch ) FOOT DEBRIDEMENT 2020-08-02 18:10:00 Mary Burrell [facility] [place] [facility] APPLICATION 2020-08-02 18:10:00 Mary Burrell [facility] VACUUM-ASSISTED DRAINAGE A Medical Branch DEVICE LOWER EXTREMITY POCT GLUCOSE (AUTOMATED) 2020-08-02 15:34:00 Kim Chaudhari Melissa [facility] COVID-19 (ID NOW RAPID 2020-08-02 10:09:00 [facility] LAB ONLY COVID 2020-08-02 10:09:00 Kavin Saucedo [place] INTERPRETATION Medical Branch POCT GLUCOSE (AUTOMATED) 2020-08-02 03:25:00 Елена Chaudharicamilo Torres [facility] POCT GLUCOSE (AUTOMATED) 2020-08-01 23:27:00 Елена Chaudharicamilo Torres [facility] VANCOMYCIN TROUGH 2020-08-01 19:55:00 Ting Poly [facility] POCT GLUCOSE (AUTOMATED) 2020-08-01 19:20:00 Елена Chaudharicamilo Torres [facility] POCT GLUCOSE (AUTOMATED) 2020-08-01 15:03:00 Елена Chaudharicamilo Torres [facility] BASIC METABOLIC PANEL 2020-08-01 11:20:00 [facility] (NA, K, CL, CO2, GLUCOSE, Medica l Branch BUN, CREATININE, CA) CBC WITHOUT DIFF 2020-08-01 11:20:00 [facility] POCT GLUCOSE (AUTOMATED) 2020-08-01 02:38:00 Kim Chaudhari Melissa [facility] POCT GLUCOSE (AUTOMATED) 2020-07-31 23:35:00 Елена Chaudharicamilo Torres [facility] POCT GLUCOSE (AUTOMATED) 2020-07-31 18:59:00 Fara Kim Torres [facility] POCT GLUCOSE (AUTOMATED) 2020-07-31 15:28:00 Fara Kim Torres [facility] BASIC METABOLIC PANEL 2020-07-31 10:54:00 [facility] (NA, K, CL, CO2, GLUCOSE, Medica l Branch BUN, CREATININE, CA) CBC WITHOUT DIFF 2020-07-31 10:54:00 Jessica [facility] POCT GLUCOSE (AUTOMATED) 2020-07-31 05:17:00 Fara Kim Torres [facility] POCT GLUCOSE (AUTOMATED) 2020-07-31 02:44:00 Fara Kim Torres [facility] POCT GLUCOSE (AUTOMATED) 2020-07-30 23:39:00 Fara Kim Torres [facility] POCT GLUCOSE (AUTOMATED) 2020-07-30 19:05:00 Fara Kim Torres [facility] BASIC METABOLIC PANEL 2020-07-30 10:03:00 Jessica [facility] (NA, K, CL, CO2, GLUCOSE, Medica l Branch BUN, CREATININE, CA) CBC WITHOUT DIFF 2020-07-30 10:03:00 Jessica [facility] POCT GLUCOSE (AUTOMATED) 2020-07-30 03:56:00 Елена Chaudharicamilo Torres [facility] MR FOOT LEFT W WO 2020-07-30 03:11[facility] 2020-07-29 22:53:00 Fara Kim Torres [facility] POCT GLUCOSE (AUTOMATED) 2020-07-29 18:20:[address] [facility] POCT GLUCOSE (AUTOMATED) 2020-07-29 14:45:00 Елена Chaudharicamilo Torres [facility] BASIC METABOLIC PANEL 2020-07-29 10:35:00 [facility] ([facility], K, CL, CO2, GLUCOSE, Medica l Branch BUN, CREATININE, CA) CBC WITHOUT DIFF 2020-07-29 10:35:00 Jessica [facility] POCT GLUCOSE (AUTOMATED) 2020-07-29 02:48:00 Елена Chaudharicamilo Torres [facility] XR BONE SURVEY 2020-07-29 02:31:00 [facility]) 2020-07-28 23:58:00 [facility] 2020-07-28 18:57:00 [facility] VAN[facility]IN [facility] 2020-07-28 18:35:00 Filiberto Lopez [facility] POCT GLUCOSE (AUTOMATED) 2020-07-28 16:17:00 Kim Chaudhari [facility] FOOT DEBRIDEMENT 2020-07-28 13:00:00 Mary Burrell [facility] POCT GLUCOSE (AUTOMATED) 2020-07-28 12:05:00 FaraKim [facility] BASIC METABOLIC PANEL 2020-07-28 10:44:00 [facility] (NA, K, CL, CO2, GLUCOSE, Medica l Branch BUN, CREATININE, CA) CBC WITHOUT DIFF 2020-07-28 10:44:00 [facility] POCT GLUCOSE (AUTOMATED) 2020-07-28 03:16:00 FaraKim [facility] POCT GLUCOSE (AUTOMATED) 2020-07-27 23:36:00 FaraKim [facility] POCT GLUCOSE (AUTOMATED) 2020-07-27 20:37:00 FaraKim [facility] POCT GLUCOSE (AUTOMATED) 2020-07-27 17:59:00 Kim Chaudhari [facility] POCT GLUCOSE (AUTOMATED) 2020-07-27 14:25:00 FaraKim [facility] BASIC METABOLIC PANEL 2020-07-27 10:24:[facility], K, CL, CO2, GLUCOSE, Medica l Branch BUN, CREATININE, CA) CBC WITHOUT DIFF 2020-07-27 10:24:00 [facility] POCT GLUCOSE (AUTOMATED) 2020-07-27 02:22:00 FaraKim [facility] POCT GLUCOSE (AUTOMATED) 2020-07-26 23:08:00 Fara Kim Torres [facility] COVID-19 (ID NOW RAPID 2020-07-26 22:46:00 Ting [facility] TESTING) Medical Branch LAB ONLY COVID 2020-07-26 22:46:00 [facility] INTERPRETATION [facility] POCT GLUCOSE (AUTOMATED) 2020-07-26 18:59:00 Fara Kim Torres [facility] POCT GLUCOSE (AUTOMATED) 2020-07-26 15:04:[address] [facility] BASIC METABOLIC PANEL 2020-07-26 11:15:00 [facility] ([facility], K, CL, CO2, GLUCOSE, Medica l Branch BUN, CREATININE, CA) CBC WITHOUT DIFF 2020-07-26 11:15:00 Jessica [facility] POCT GLUCOSE (AUTOMATED) 2020-07-26 03:02:[address] [facility] POCT GLUCOSE (AUTOMATED) 2020-07-25 23:04:[address] [facility] VANCOMYCIN TROUGH 2020-07-25 16:29:00 Jessica [facility] POCT GLUCOSE (AUTOMATED) 2020-07-25 16:21:[address] [facility] BASIC METABOLIC PANEL 2020-07-25 12:25:00 [facility] ([facility], K, CL, CO2, GLUCOSE, Medica l Branch BUN, CREATININE, CA) CBC WITH DIFF 2020-07-25 12:25:00 Jessica [facility] POCT GLUCOSE (AUTOMATED) 2020-07-25 03:10:[address] [facility] POCT GLUCOSE (AUTOMATED) 2020-07-24 23:02:[address] [facility] POCT GLUCOSE (AUTOMATED) 2020-07-24 18:59:00 [facility] ([facility]OMATED) 2020-07-24 14:35:00 [facility] PO[facility] GLUCOSE (AUTOMATED) 2020-07-24 09:30:00 FaraKim lopez [facility] MAGNESIUM 2020-07-24 06:33:00 Filiberto Lopez [facility] BASIC METABOLIC PANEL 2020-07-24 06:33:00 Filiberto Lopez [facility] (NA, K, CL, CO2, GLUCOSE, Medica l Branch BUN, CREATININE, CA) POCT GLUCOSE (AUTOMATED) 2020-07-24 06:25:00 FaraKim [facility] POCT GLUCOSE (AUTOMATED) 2020-07-24 03:04:00 FaraKim [facility] POCT GLUCOSE (AUTOMATED) 2020-07-23 23:26:00 FaraKim [facility] POCT GLUCOSE (AUTOMATED) 2020-07-23 19:48:00 FaraKim [facility] POCT GLUCOSE (AUTOMATED) 2020-07-23 16:17:00 Fara Kim [facility] 2020-07-23 10:41:00 Filiberto Lopez [facility] BASIC METABOLIC PANEL 2020-07-23 10:41:00 Filiberto Lopez [facility] (NA, K, CL, CO2, GLUCOSE, Medica l Branch BUN, CREATININE, CA) VANCOMYCIN RANDOM LEVEL 2020-07-23 10:41:[address] [facility] POCT GLUCOSE (AUTOMATED) 2020-07-23 10:33:00 Fara Kim Torres [facility] POCT GLUCOSE (AUTOMATED) 2020-07-23 06:01:00 Fara Kim Torres [facility] POCT GLUCOSE (AUTOMATED) 2020-07-23 03:35:00 Fara Kim Torres [facility] POCT GLUCOSE (AUTOMATED) 2020-07-22 23:41:00 Fara Kim Torres [facility] BASIC METABOLIC PANEL 2020-07-22 20:27:00 Filiberto Lopez [facility] (NA, K, CL, CO2, GLUCOSE, Medica l Branch BUN, CREATININE, CA) POCT GLUCOSE (AUTOMATED) 2020-07-22 19:05:00 Fara Kim Torres [facility] POCT GLUCOSE (AUTOMATED) 2020-07-22 15:03:00 FaraKim [facility] MAGNESIUM 2020-07-22 11:49:00 Filiberto Lopez [facility] BASIC METABOLIC PANEL 2020-07-22 11:49:00 Filiberto Lopez [facility] (NA, K, CL, CO2, GLUCOSE, Medica l Branch BUN, CREATININE, CA) CBC WITHOUT DIFF 2020-07-22 11:49:00 Filiberto Lopez [facility] POCT GLUCOSE (AUTOMATED) 2020-07-22 11:48:00 Fara Kim Torres [facility] POCT GLUCOSE (AUTOMATED) 2020-07-22 10:07:00 Fara Kim Torres [facility] POCT GLUCOSE (AUTOMATED) 2020-07-22 08:50:00 Fara Kim Torres [facility] POCT GLUCOSE (AUTOMATED) 2020-07-22 06:26:00 Fara Kim Torres [facility] POCT GLUCOSE (AUTOMATED) 2020-07-22 04:32:00 [facility] CREATININE, URINE RANDOM 2020-07-22 00:15:00 Filiberto Lopez [facility] SODIUM, URINE RANDOM 2020-07-22 00:15:00 Filiberto Lopez [facility] POCT GLUCOSE (AUTOMATED) 2020-07-22 00:00:00 Fara Kim Torres [facility] VANCOMYCIN TROUGH 2020-07-21 21:11:00 Patricio Elam [facility] POCT GLUCOSE (AUTOMATED) 2020-07-21 20:44:00 Fara Kim Torres [facility] POCT GLUCOSE (AUTOMATED) 2020-07-21 18:09:00 Fara Kim Torres [facility] FUNGUS (ROUTINE) CULTURE 2020-07-21 17:45:08 Tisha Burrell [facility] TISSUE 2020-07-21 17:45:00 [facility]/ANAEROBIC A Medica l Branch ) FOOT DEBRIDEMENT 2020-07-21 17:09:00 Mary Burrell [facility] A Medical Branch COVID-19 (ID NOW RAPID 2020-07-21 16:19:00 Ting [facility] TESTING) Medical Branch LAB ONLY COVID 2020-07-21 16:19:00 [facility] INTERPRETATION [facility] POCT GLUCOSE (AUTOMATED) 2020-07-21 13:47:00 [facility]лена [facility] MAGNESIUM 2020-07-21 09:31:00 [facility] BASIC MET[facility]OLIC PANEL 2020-07-21 09:31:00 [facility] ([facility], K, CL, CO2, GLUCOSE, Medica l Branch BUN, CREATININE, CA) CBC WITH DIFF 2020-07-21 09:31:00 [facility] 2020-07-21 09:30:00 Fara [facility] POCT GLUCOSE (AUTOMATED) 2020-07-21 09:28:00 Fara [facility] POCT GLUCOSE (AUTOMATED) 2020-07-21 03:24:00 Fara [facility] VANCOMYCIN TROUGH 2020-07-21 02:42:00 Filiberto Lopez [facility] POCT GLUCOSE (AUTOMATED) 2020-07-20 23:37:00 Fara [facility] POCT GLUCOSE (AUTOMATED) 2020-07-20 18:42:00 Fara [facility] POCT GLUCOSE (AUTOMATED) 2020-07-20 15:00:00 Fara [facility] MAGNESIUM 2020-07-20 10:49:00 [facility] BASIC METABOLIC PANEL 2020-07-20 10:49:00 Kamaljit Dickerson [facility] (NA, K, CL, CO2, GLUCOSE, Medica l Branch BUN, CREATININE, CA) CBC WITH DIFF 2020-07-20 10:49:00 Kamaljit Dickerson [place] [facility] POCT GLUCOSE (AUTOMATED) 2020-07-20 10:39:00 Kim Chaudhari [facility] POCT GLUCOSE (AUTOMATED) 2020-07-20 05:22:00 Kim Chaudhari [facility] POCT GLUCOSE (AUTOMATED) 2020-07-20 02:36:00 Fara, Kim Melissa [facility] POCT GLUCOSE (AUTOMATED) 2020-07-20 01:10:00 Fara, Kim Melissa [facility] POCT GLUCOSE (AUTOMATED) 2020-07-20 00:58:00 [facility]ara[facility] VAN[facility]OUGH 2020-07-19 21:39:00 [facility] ([facility]OMATED) 2020-07-19 20:06:00 FaraЕленаUniversity [facility] POCT GLUCOSE (AUTOMATED) 2020-07-19 18:16:[address] [facility] FUNGUS (ROUTINE) CULTURE 2020-07-19 17:30:53 Tisha Burrell [facility] TISSUE 2020-07-19 17:30:53 Mary Burrell [facility] CULTURE(AEROBIC/ANAEROBIC A Medica l [place] ) ASPIRATE OR ABSCESS 2020-07-19 17:29:03 Mary Burrell [facility] CULTURE(AEROBIC/ANAEROBIC A Medica l [place] ) AFB CULTURE 2020-07-19 17:29:03 Mary Burrell [facility] FUNGUS (ROUTINE) CULTURE 2020-07-19 17:29:03 Tisha Burrell [facility] FOOT DEBRIDEMENT 2020-07-19 16:48:00 [facility] PO[facility]SE (AUTOMATED) 2020-07-19 14:16:00 Bernardino Paez [facility] MAGNESIUM 2020-07-19 11:46:00 [facility] BASIC METABOLIC PANEL 2020-07-19 11:46:00 Kamaljit Dickerson [facility] (NA, K, CL, CO2, GLUCOSE, Medica l Branch BUN, CREATININE, CA) CBC WITH DIFF 2020-07-19 11:46:00 [facility] GLUCOSE (AUTOMATED) 2020-07-19 11:21:00 Vladimir [facility] POCT GLUCOSE (AUTOMATED) 2020-07-19 07:54:00 Vladimir [facility] POCT GLUCOSE (AUTOMATED) 2020-07-19 03:09:00 Vladimir [facility] POCT GLUCOSE (AUTOMATED) 2020-07-18 23:00:00 Vladimir [facility] POCT GLUCOSE (AUTOMATED) 2020-07-18 18:41:00 Vladimir [facility] VANCOMYCIN TROUGH 2020-07-18 14:44:00 Kavin Saucdeo [facility] BLOOD CULTURE SCREEN 2020-07-18 14:37:00 Kavin Saucedo [facility] POCT GLUCOSE (AUTOMATED) 2020-07-18 14:14:00 Vladimir [facility] POCT GLUCOSE (AUTOMATED) 2020-07-18 10:19:00 Vladimir [facility] CBC WITH DIFF 2020-07-18 10:16:00 [facility] 2020-07-18 10:15:00 [facility] BASIC METABOLIC PANEL 2020-07-18 10:15:00 Kamaljit Dickerson [facility] (NA, K, CL, CO2, GLUCOSE, Medica l Branch BUN, CREATININE, CA) POCT GLUCOSE (AUTOMATED) 2020-07-18 06:00:00 Vladimir [facility] POCT GLUCOSE (AUTOMATED) 2020-07-18 01:45:00 Vladimir [facility] POCT GLUCOSE (AUTOMATED) 2020-07-17 22:55:00 Vladimir [facility] POCT GLUCOSE (AUTOMATED) 2020-07-17 21:38:00 Vladimir [facility] POCT GLUCOSE (AUTOMATED) 2020-07-17 17:58:00 [facility] POCT GLUCOSE (AUTOMATED) 2020-07-17 13:12:00 [facility] MAGNESIUM 2020-07-17 11:08:00 [facility] BASIC METABOLIC PANEL 2020-07-17 11:08:00 [facility] ([facility], K, CL, CO2, GLUCOSE, Medica l Branch BUN, CREATININE, CA) CBC WITH DIFF 2020-07-17 11:08:00 [facility] PO[facility] GLUCOSE (AUTOMATED) 2020-07-17 09:58:00 [facility] POCT GLUCOSE (AUTOMATED) 2020-07-17 05:49:00 [facility] POCT GLUCOSE (AUTOMATED) 2020-07-17 02:15:00 [facility] POCT GLUCOSE (AUTOMATED) 2020-07-16 22:50:00 [facility] POCT GLUCOSE (AUTOMATED) 2020-07-16 18:58:00 [facility] VANCOMYCIN TROUGH 2020-07-16 17:33:00 [facility] ([facility]OMATED) 2020-07-16 15:14:00 [facility] MAGNESIUM 2020-07-16 10:12:00 [facility]IC METABOLIC PANEL 2020-07-16 10:12:00 Kamaljit Dickerson [facility] (NA, K, CL, CO2, GLUCOSE, Medica l Branch BUN, CREATININE, CA) CBC WITH DIFF 2020-07-16 10:12:00 [facility]UCOSE (AUTOMATED) 2020-07-16 10:02:00 [facility] ([facility]OMATED) 2020-07-16 06:21:00 [facility]SE (AUTOMATED) 2020-07-16 02:12:00 [facility] PO[facility] GLU[facility]SE (AUTOMATED) 2020-07-15 23:46:00 [facility] FUNGUS ([facility]OUTINE) CULTURE 2020-07-15 20:56:36 Tisha Burrell [facility] TISSUE 2020-07-15 20:56:36 Mary Burrell [facility] CULTURE(AEROBIC/[facility]OBIC [facility] ASPIRATE OR ABSCESS 2020-07-15 20:51:22 Mary Burrell [facility] CULTURE(AEROBIC/ANAEROBIC A [facility] ) AF[employer] CULTURE 2020-07-15 20:51:22 Mary Burrell [facility] FUNGUS (ROUTINE) CULTURE 2020-07-15 20:51:22 Tisha Burrell [facility] FOOT DEBRIDEMENT 2020-07-15 20:18:00 Mary Burrell [facility] POCT GLUCOSE (AUTOMATED) 2020-07-15 19:54:00 Bernardino Paez [facility] POCT GLUCOSE (AUTOMATED) 2020-07-15 17:59:00 [facility] XR ANKLE 3+ VW LEFT 2020-07-15 16:01:00 Mary Burrell [facility] XR FOOT 3+ VW LEFT 2020-07-15 16:01:00 Mary Burrell [facility] POCT GLUCOSE (AUTOMATED) 2020-07-15 14:25:00 [facility] MAGNESIUM 2020-07-15 10:36:00 Dickerson, [facility] C-REACTIVE PROTEIN 2020-07-15 10:36:00 Kamaljit Dickerson [facility] BASIC METABOLIC PANEL 2020-07-15 10:36:00 Kamaljit Dickerson [facility] (NA, K, CL, CO2, GLUCOSE, Medica l Branch BUN, CREATININE, CA) LIPID PANEL ([id number])(TOTAL 2020-07-15 10:36:00 Kavin Saucedo [facility] CHOLESTEROL, [facility] TRIGLYCERIDES, HDL) CBC WITH DIFF 2020-07-15 10:36:00 [facility] ([facility]OMATED) 2020-07-15 10:25:00 Vladimir [facility] POCT GLUCOSE (AUTOMATED) 2020-07-15 06:20:00 Vladimir [facility] POCT GLUCOSE (AUTOMATED) 2020-07-15 02:48:00 Vladimir [facility] CT TIBIA FIBULA LEFT W 2020-07-15 00:27:00 Kamaljit Dickerson [facility] CONTRAST [facility] POCT GLUCOSE (AUTOMATED) 2020-07-14 23:38:00 Vladimir [facility] SEDIMENTATION RATE 2020-07-14 23:33:00 Kamaljit Dickerson [facility] WOUND/ASPIRATE OR ABSCESS 2020-07-14 23:28:00 Kamaljit Dickerson [facility] WOUND CULTURE 2020-07-14 23:28:00 Kamaljit Dickerson [facility] BLOOD CULTURE SCREEN 2020-07-14 17:58:00 Lavinia Ash [facility] LACTIC ACID WHOLE BLOOD 2020-07-14 16:28:00 Lavinia Ash [facility] BLOOD CULTURE SCREEN 2020-07-14 16:26:00 Lavinia Ash [facility] BASIC METABOLIC PANEL 2020-07-14 16:26:00 Lavinia Ash [facility] (NA, K, CL, CO2, GLUCOSE, Medica l Branch BUN, CREATININE, CA) CBC WITH DIFF 2020-07-14 16:26:00 Lavinia Ash [place] [facility] GLYCOSYLATED HEMOGLOBIN 2020-07-14 16:26:00 Kamaljit Dickerson [facility] (A1C) Medical Branch COVID-19 (ID NOW RAPID 2020-07-14 16:26:00 Lavinia Ash [facility] TESTING) Medical Branch LAB ONLY COVID 2020-07-14 16:26:00 Lavinia Ash [facility] INTERPRETATION [facility] NOTICE OF PRIVACY 2020-07-14 16:04:08 Doctor Thu, [facility] PRACTICES [facility] CONSENT/REFUSAL FOR 2020-07-14 16:03:48 Doctor Thu, [facility] DIAGNOSIS AND TREATMENT [facility] [place] AGREEMENTS AUTHORIZATIONS 2020-07-14 06:01:00 Doctor Thu, [facility] AND IRREVOCABLE [place] [facility] ASSIGNMENTS (FORM 2000) HOSPITAL ADMISSION 2020-07-14 06:01:00 Doctor Thu, [facility] [place] [facility] Encounters Start End Encounter Admission Attending Care Care Encounter Source Date/Time Date/Time Type Type Clinicians Facility Department ID 2021-04-25 2021-04-25 Imm/Inj Nurse, Adc Pob Immunization [facility] [id number] Univers 14:02:12 14:02:20 [facility] 4.2.7.2.686 Fly CURRYIO [id number] Il dical [address] BUILDING 2021-04-25 2021-04-25 Outpatient Lexi PELAEZ [facility] [id number] Univers 14:00:00 14:00:00 DEON concepcion [facility] 2020-10-19 2020-10-19 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 [facility] UNIVERSIT [id number] Univers 09:35:54 09:53:45 Visit Moody Hernandez [facility] [id number] ity [facility] 4.2.7.2.686 Fly avelar [id number] [address] 2020-10-19 2020-10-19 Outpatient R RHINA [facility] [id number] Univers 09:30:00 09:30:00 MOODY avelar [facility] 2020-10-19 2020-10-19 Office KELSIE Hernandez [id number] Univers 08:56:46 09:26:46 Visit Moody Trevino HEALTH 350.1.13.10 [place] [id number] [address] 2020-10-11 2020-10-11 Outpatient R GRANT [facility] [id number] Univers 08:30:00 08:30:00 IRINEO ity [facility] 2020-09-21 2020-09-21 Outpatient R GRANT [facility] [id number] Univers 15:10:00 15:10:00 [facility] 2020-09-13 2020-09-13 Outpatient R GRANT, [facility] [id number] Univers 08:30:00 08:30:00 [facility] 2020-08-31 2020-08-31 Outpatient R GRANT, [facility] [id number] Univers 15:10:00 15:10:00 IRINEO [facility] 2020-08-31 2020-08-31 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 [employer] [facility] UNIVERSIT [id number] Univers 10:03:17 10:09:12 Visit Rhina Moody Trevino HEALTH 350.1.13.10 [place] [phone] [facility] [address] 2020-08-31 2020-08-31 Office KELSIE Hernandez [id number] Univers 09:21:27 09:59:59 Visit Moody Trevino HEALTH 350.1.13.10 [place] [id number] [facility] [address] [place] 2020-08-31 2020-08-31 Outpatient R RHINA [facility] [id number] Univers 09:30:00 09:30:00 MOODY ity [facility] 2020-08-31 2020-08-31 Telephone Rhina ROSIE [id number] Univers 00:00:00 00:00:00 Moody B HEALTH 350.1.13.10 [place] [id number] [facility] [address] [place] 2020-08-26 2020-08-26 Outpatient R ALIA [facility] [id number] Univers 09:30:00 09:30:00 MARY ity [facility] 2020-08-24 2020-08-24 Telephone [facility] [id number] Univers 00:00:00 00:00:00 Mary PRIMARY 350.1.13.10 it[place] [id number] [address] 2020-08-19 2020-08-19 [facility] [id number] Univers 11:00:00 11:00:00 MARY ity [facility] 2020-08-10 2020-08-10 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 [employer] UNIVERSIT [id number] Univers 10:29:25 10:54:23 Visit RhinaMoody HEALTH 350.1.13.10 ity of [place] [id number] [facility] [address] 2020-08-10 2020-08-10 Office ROSIE HernandezMARYBETH [id number] Univers 09:17:52 10:15:44 Visit Moody B HEALTH 350.1.13.10 ity of [place] [id number] [place] 0[address] [place] 2020-08-10 2020-08-10 Outpatient R RHINA [facility] [id number] Univers 09:00:00 09:00:00 MOODY itconcepcion [facility] 2020-08-09 2020-08-09 Outpatient [facility] [id number] Univers 10:15:00 10:15:00 MARY ity of [facility] 2020-08-09 2020-08-09 Office Alia [facility] [id number] Univers 10:06:29 10:07:40 Visit Mary PRIMARY 350.1.13.10 ity of [place] [id number] Il dical [address] 2020-08-09 2020-08-09 Orders Doctor IRENE [id number] Univers 00:00:00 00:00:00 Only Unassigned, SANJAY 350.1.13.10 ity of [place] [facility] 4.2.7.2.686 Marc as [phone] [facility] [address] Branch 2020-08-05 2020-08-05 Transition Dougherty Gradyoralia 1.2.840.114 [id number] Univers 00:00:00 00:00:00 of Care Sara Sauer 350.1.13.10 it y [place] [id number] [facility] [address] 2020-07-14 2020-08-04 [facility] [id number] Univers 10:17:00 18:24:00 MARYANN ity of [facility] 2020-07-14 2020-08-04 Hospital Lavinia Ash 1.2.840.11 [id number] Univers 10:17:00 18:24:00 Encounter Vladimir Bernardino KyleDeannaisaiah Salvador 350.1.13 .10 ity of [facility] 4.2.7.2.686 [place] Maryann Russ [id number] [address] Results Test Description Test Time Test Comments Results Result Comments Source POCT GLUCOSE (AUTOMATED) 2020-08-04 23:41:00 Test Item Value Reference Range Interpretation Comme nts POCT GLU (test code = 3603622642) 234 mg/dL 70-110 H Lab Interpretation (test code = 93466-5) [facility]normal [facility] [id number] 21:00:00 Test Item Value Reference Range Interpretation Comments NA URINE (test code = 0736771683) 82 mmol/L [facility] URINE [id number] 21:00:00 Test Item Value Reference Range Interpretation Comments CREAT U (test code = 9180052338) 78.8 mg/dL [facility] CREAT RATIO URINE [id number] 21:00:00 Test Item Value Reference Range Interpretation Comments T. PROT U (test code = 2888-6) 61 mg/dL CREAT U (test code = 9475934400) 78.8 mg/dL Protein/Creatinine Ratio Urine 0.0-2.0 (test code = 9652197325) [facility] GLUCOSE (AUTOMATED)2020-08-04 19:39:00 Test Item Value Reference Range Interpretation Comments POCT GLU (test code = 1673227404) 155 mg/dL 70-110 H Lab Interpretation (test code = Abnormal 03824-9) [facility] GLUCOSE (AUTOMATED)2020-08-04 15:14:00 Test Item Value Reference Range Interpretation Comments POCT GLU (test code = 6755217237) 106 mg/dL 70-110 Lab Interpretation (test code = Normal 51560-0) [facility]) [id number] 14:07:00 Test Item Value Reference Range Interpretation Comments FUNGUS CULTURE Scant (< 1+) growth Previo us (test code = Trichophyton rubrum prelimin taco 580-1) verified result was Mold on 07/21/19 21 at 0932 [employer] Fungus Direct No Fungi seen on Smear (test direct prep code = 81223-7) [facility] MET[facility]OLIC PANEL (NA, K, CL, CO2, GLUCOSE, BUN, CREATININE, CA)2020-08-04 11:16:00 Test Item Value Reference Range Interpretation Comments NA (test code = 134 mmol/L 135-145 L 9963135983) K (test code = 4.2 mmol/L 3.5-5 6731140712) CL (test code = 102 mmol/L 98-108 6076893952) CO2 TOTAL (test code = 24 mmol/L 23-31 9495447953) AGAP (test code = 2-16 1145158445) BUN (test code = 31 mg/dL 7-23 H 7691105012) GLUCOSE (test code = 126 mg/dL 70-110 H 0459393494) CREATININE (test code = 1.74 mg/dL 0.6-1.25 H 1710172261) CALCIUM (test code = 9.1 mg/dL 8.6-10.6 4247573378) eGFR Calculation mL/min/1.73m2 (Non-) (test code = 7483901717) eGFR Calculation mL/min/1.73m2 () (test code = 1755686832) DOMENIC (test code = DOMENIC) Association of [...] tests). Lab Interpretation Abnormal (test code = 85179-9) [facility] 11:16:00 Test Item Value Reference Range Interpretation Comments MAGNESIUM (test code = 1151906334) 2.0 mg/dL 1.7-2.4 Lab Interpretation (test code = Normal 30395-3) [facility] WITHOUT [id number] 11:08:00 Test Item Value Reference Range Interpretation Comments WBC (test code = 6690-2) See_Comment [A utomated message] The system [employer] generated this result transmit rony reference range : 4.20 - 10.70 10*3/?L. The reference range was not used to interpret this result as normal/abnormal . RBC (test code = 789-8) See_Comment L [Au tomated message] The system [employer] generated this result transmit rony reference range [...] See_Comment H [Au tomated message] The system [employer] generated this result transmit rony reference range : 150 - 328 10*3/?L. The reference range was not used to interpret this result as normal/abnormal . MPV (test code = 9.9 fL 9.8-13 46838-6) RDW-CV (test code = 12.6 % 12.1-15.4 788-0) RDW-SD (test code = 40.8 fL 38.5-51.6 48495-9) NRBC x10^3 (test code = <0.01 See_Comment [Au tomated message] 3712196600) The system [employer] generated this result transmit rony reference range : 10*3/?L. The reference range was not used to interpret this result as normal/abnormal . NRBC/100 WBC (test code See_Comment [Au tomated message] = 5647609295) The system [employer] generated this result transmit rony reference range : 0.0 - 10.0 /100 WBC s. The reference r yen was not used to interpret this result as normal/abnormal . IPF % (test code = 8431798759) Lab Interpretation (test Abnormal code = 80788-8) [facility] METABOLIC PANEL (NA, K, CL, CO2, GLUCOSE, BUN, CREATININE, CA)2020-08-04 04:47:00 Test Item Value Reference Range Interpretation Comments NA (test code = 132 mmol/L 135-145 L 4469957438) K (test code = 4.3 mmol/L 3.5-5 8993919583) CL (test code = 99 mmol/L 98-108 8727153870) CO2 TOTAL (test code = 26 mmol/L 23-31 5147763488) AGAP (test code = 2-16 0826494997) BUN (test code = 31 mg/dL 7-23 H 5071061704) GLUCOSE (test code = 185 mg/dL 70-110 H 0636112109) CREATININE (test code = 1.76 mg/dL 0.6-1.25 H 0745244024) CALCIUM (test code = 8.7 mg/dL 8.6-10.6 0144915169) eGFR Calculation mL/min/1.73m2 (Non-) (test code = 7004181095) eGFR Calculation mL/min/1.73m2 () (test code = 5212320648) DOMENIC (test code = DOMENIC) Association of [...] tests). Lab Interpretation Abnormal (test code = 51919-0) [facility] GLUCOSE (AUTOMATED)2020-08-04 03:11:00 Test Item Value Reference Range Interpretation Comments POCT GLU (test code = 8567780023) 193 mg/dL 70-110 H Lab Interpretation (test code = Abnormal 46977-1) [facility] GLUCOSE (AUTOMATED)2020-08-03 23:06:00 Test Item Value Reference Range Interpretation Comments POCT GLU (test code = 0768707120) 211 mg/dL 70-110 H Lab Interpretation (test code = Abnormal 76424-6) [facility] GLUCOSE (AUTOMATED)2020-08-03 19:11:00 Test Item Value Reference Range Interpretation Comments POCT GLU (test code = 3166260344) 182 mg/dL 70-110 H Lab Interpretation (test code = Abnormal 22055-4) [facility] GLUCOSE (AUTOMATED)2020-08-03 16:10:00 Test Item Value Reference Range Interpretation Comments POCT GLU (test code = 9718148365) 151 mg/dL 70-110 H Lab Interpretation (test code = Abnormal 87991-4) [facility] COVID [id number] 05:03:00COVID DMT InterpretationInterpretation/Recommendations: Molecular NAAT Tests for [...] Tests for IgM and/or IgG Antibodies to the SARS-CoV-2 Virus: If the patient develops COVID-19 illness in the future, testing for IgM and IgG antibodies approximately 3 weeks [...] COVID-19 testing the patient has had at [facility], including molecular NAAT testing (more commonly known as PCR testing and Rapid ID Now testing) and antibody testing. It does not take into account any testingthat a patient has had outside of the [facility] medical record. [facility] LABORATORY SERVICESCOVID SeogoveMJYW-IxI-5 Rapid ID NOW (no units) ? ? Date ? Value ? 08/02/2020 ? Not Detected ? ? ? 07/26/2020 ? Not Detected ? ? ? 07/21/2020 ? Not Detected ? ? ? 07/14/2020 ? Not Detected ? [facility] SERVICESUnTexas [facility] HospitalPOCT GLUCOSE (AUTOMATED)2020-08-03 03:28:00 Test Item Value Reference Range Interpretation Comments POCT GLU (test code = 8399406387) 304 mg/dL 70-110 H Lab Interpretation (test code = Abnormal 57704-1) [facility] GLUCOSE (AUTOMATED)2020-08-02 23:08:00 Test Item Value Reference Range Interpretation Comments POCT GLU (test code = 9367508446) 123 mg/dL 70-110 H Lab Interpretation (test code = Abnormal 27174-8) [facility] GLUCOSE (AUTOMATED)2020-08-02 15:36:00 Test Item Value Reference Range Interpretation Comments POCT GLU (test code = 4446985372) 178 mg/dL 70-110 H Lab Interpretation (test code = Abnormal 86699-8) [facility]INE) [id number] 14:20:00 Test Item Value Reference Range Interpretation Comments FUNGUS CULTURE (test Scant (< 1+) growth code = 580-1) Trichophyton rubrum Fungus Direct Smear No Fungi seen on direct (test code = prep 00482-7) [facility] HospitalCOVID[facility] (ID NOW RAPID TESTING)2020-08-02 10:39:00 Test Item Value Reference Range Interpretation Comments SARS-CoV-2 Rapid ID NOW Not Detected Not Detected (test code = 74563-3) DOMENIC (test code = DOMENIC) ID NOW COVID-19 Assay is an isothermal nucleic acid amplification test intended for the qualitative detection of nucleic acid from SARS-CoV-2 viral RNA in nasopharyngeal (CASE MONITOR) specimens. It is used under Emergency Use [...] indicated. Lab Interpretation Normal (test code = 29372-7) [facility] GLUCOSE (AUTOMATED)2020-08-02 03:26:00 Test Item Value Reference Range Interpretation Comments POCT GLU (test code = 6323166164) 233 mg/dL 70-110 H Lab Interpretation (test code = Abnormal 74716-8) [facility] GLUCOSE (AUTOMATED)2020-08-01 23:29:00 Test Item Value Reference Range Interpretation Comments POCT GLU (test code = 8087296945) 217 mg/dL 70-110 H Lab Interpretation (test code = Abnormal 35604-7) [facility] Hospital[facility] Trough Level - Draw immediately prior to the 4TH dose, but, no more than 60 minutes before the NEXT dose. 2020-08-01 21:47:00 Test Item Value Reference Range Interpretation Comments VANCO TROUGH (test code 12.2 ug/mL 10-20 = 7155959315) DOMENIC (test code = DOMENIC) Toxic Range: ?>20 ug/mL 15-20 ug/mL is recommended for severe infection or when Vancomycin MARK ANTHONY is greater than or equal to 2. Lab Interpretation (test Normal code = 99488-1) [facility] GLUCOSE (AUTOMATED)2020-08-01 19:21:00 Test Item Value Reference Range Interpretation Comments POCT GLU (test code = 3618667236) 288 mg/dL 70-110 H Lab Interpretation (test code = Abnormal 17191-8) [facility] GLUCOSE (AUTOMATED)2020-08-01 15:04:00 Test Item Value Reference Range Interpretation Comments POCT GLU (test code = 5215366819) 173 mg/dL 70-110 H Lab Interpretation (test code = Abnormal 96520-6) [facility] MET[facility]OLIC PANEL (NA, K, CL, CO2, GLUCOSE, BUN, CREATININE, CA)2020-08-01 11:58:00 Test Item Value Reference Range Interpretation Comments NA (test code = 134 mmol/L 135-145 L 9128761544) K (test code = 4.6 mmol/L 3.5-5 7316141219) CL (test code = 99 mmol/L 98-108 7791091027) CO2 TOTAL (test code = 25 mmol/L 23-31 5858305798) AGAP (test code = 2-16 2079558795) BUN (test code = 39 mg/dL 7-23 H 1938562474) GLUCOSE (test code = 163 mg/dL 70-110 H 4536381736) CREATININE (test code = 2.04 mg/dL 0.6-1.25 H 1217681158) CALCIUM (test code = 9.2 mg/dL 8.6-10.6 8111244851) eGFR Calculation mL/min/1.73m2 (Non-) (test code = 4123285327) eGFR Calculation mL/min/1.73m2 () (test code = 9189132054) DOMENIC (test code = DOMENIC) Association of [...] tests). Lab Interpretation Abnormal (test code = 41323-6) [facility] WITHOUT [id number] 11:37:00 Test Item Value Reference Range Interpretation Comments WBC (test code = 6690-2) See_Comment [A utomated message] The system [employer] generated this result transmit rony reference range : 4.20 - 10.70 10*3/?L. The reference range was not used to interpret this result as normal/abnormal . RBC (test code = 789-8) See_Comment L [Au tomated message] The system [employer] generated this result transmit rony reference range [...] See_Comment H [Au tomated message] The system [employer] generated this result transmit rony reference range : 150 - 328 10*3/?L. The reference range was not used to interpret this result as normal/abnormal . MPV (test code = 8.4 fL 9.8-13 L 27852-6) RDW-CV (test code = 12.3 % 12.1-15.4 788-0) RDW-SD (test code = 39.6 fL 38.5-51.6 29705-4) NRBC x10^3 (test code = <0.01 See_Comment [Au tomated message] 3415549454) The system [employer] generated this result transmit rony reference range : 10*3/?L. The reference range was not used to interpret this result as normal/abnormal . NRBC/100 WBC (test code See_Comment [Au tomated message] = 9592916636) The system [facility] generated this result transmit rony reference range : 0.0 - 10.0 /100 WBC s. The reference r yen was not used to interpret this result as normal/abnormal . IPF % (test code = 6431655780) Lab Interpretation (test Abnormal code = 48271-1) [facility] GLUCOSE (AUTOMATED)2020-08-01 02:39:00 Test Item Value Reference Range Interpretation Comments POCT GLU (test code = 9788799164) 192 mg/dL 70-110 H Lab Interpretation (test code = Abnormal 12625-4) [facility] GLUCOSE (AUTOMATED)2020-07-31 23:39:00 Test Item Value Reference Range Interpretation Comments POCT GLU (test code = 5795754024) 216 mg/dL 70-110 H Lab Interpretation (test code = Abnormal 78504-6) [facility] GLUCOSE (AUTOMATED)2020-07-31 19:07:00 Test Item Value Reference Range Interpretation Comments POCT GLU (test code = 5728742371) 197 mg/dL 70-110 H Lab Interpretation (test code = Abnormal 83301-8) [facility] GLUCOSE (AUTOMATED)2020-07-31 15:31:00 Test Item Value Reference Range Interpretation Comments POCT GLU (test code = 1374412914) 131 mg/dL 70-110 H Lab Interpretation (test code = Abnormal 42277-8) [facility] WITHOUT [id number] 12:10:00 Test Item Value Reference Range Interpretation Comments WBC (test code = 6690-2) See_Comment [A utomated message] The system [employer] generated this result transmit rony reference range : 4.20 - 10.70 10*3/?L. The reference range was not used to interpret this result as normal/abnormal . RBC (test code = 789-8) See_Comment L [Au tomated message] The system [employer] generated this result transmit rony reference range [...] See_Comment H [Au tomated message] The system [employer] generated this result transmit rony reference range : 150 - 328 10*3/?L. The reference range was not used to interpret this result as normal/abnormal . MPV (test code = 9.1 fL 9.8-13 L 04348-8) RDW-CV (test code = 12.4 % 12.1-15.4 788-0) RDW-SD (test code = 40.0 fL 38.5-51.6 41781-4) NRBC x10^3 (test code = <0.01 See_Comment [Au tomated message] 3216763009) The system [employer] generated this result transmit rony reference range : 10*3/?L. The reference range was not used to interpret this result as normal/abnormal . NRBC/100 WBC (test code See_Comment [Au tomated message] = 7612508748) The system [employer] generated this result transmit rony reference range : 0.0 - 10.0 /100 WBC s. The reference r yen was not used to interpret this result as normal/abnormal . IPF % (test code = 6380802984) Lab Interpretation (test Abnormal code = 71168-6) [facility] METABOLIC PANEL (NA, K, CL, CO2, GLUCOSE, BUN, CREATININE, CA)2020-07-31 11:50:00 Test Item Value Reference Range Interpretation Comments NA (test code = 134 mmol/L 135-145 L 3613723934) K (test code = 4.4 mmol/L 3.5-5 3253714373) CL (test code = 99 mmol/L 98-108 0458826731) CO2 TOTAL (test code = 26 mmol/L 23-31 0797781514) AGAP (test code = 2-16 3694931625) BUN (test code = 32 mg/dL 7-23 H 5534679852) GLUCOSE (test code = 119 mg/dL 70-110 H 0092662597) CREATININE (test code = 1.69 mg/dL 0.6-1.25 H 7228936049) CALCIUM (test code = 9.3 mg/dL 8.6-10.6 9503835646) eGFR Calculation mL/min/1.73m2 (Non-) (test code = 2908904761) eGFR Calculation mL/min/1.73m2 () (test code = 7417283698) DOMENIC (test code = DOMENIC) Association of [...] tests). Lab Interpretation Abnormal (test code = 19326-8) [facility] GLUCOSE (AUTOMATED)2020-07-31 05:19:00 Test Item Value Reference Range Interpretation Comments POCT GLU (test code = 0046903534) 213 mg/dL 70-110 H Lab Interpretation (test code = Abnormal 24980-9) [facility] GLUCOSE (AUTOMATED)2020-07-31 02:45:00 Test Item Value Reference Range Interpretation Comments POCT GLU (test code = 3705418284) 313 mg/dL 70-110 H Lab Interpretation (test code = Abnormal 39490-1) [facility] GLUCOSE (AUTOMATED)2020-07-30 23:45:00 Test Item Value Reference Range Interpretation Comments POCT GLU (test code = 5262183460) 174 mg/dL 70-110 H Lab Interpretation (test code = Abnormal 19776-7) [facility]2020-07-30 19:13:00 Test Item Value Reference Range Interpretation Comments POCT GLU (test code = 5466869077) 177 mg/dL 70-110 H Lab Interpretation (test code = Abnormal 81497-8) [facility] HospitalMR [facility] LEFT W WO [id number] 11:59:42 Forefoot plantar ulceration/gas and/or foreign debris with communicatingdorsal forefoot abscess partially surrounding the extensor tendons. Osteomyelitis involving the hallux sesamoid metatarsals, second metatarsalhead and second phalanx with possible involvement of the third metatarsalhead. EXAM: MRILEFT FOOT WITH AND WITHOUT IV CONTRAST HISTORY: Osteomyelitis, foot COMPARISON: Plain films dated 07/15/2020 TECHNIQUE AND FINDINGS: 1.5T multiplanar multiweighted MR imaging of the left foot was performedwith utilization of 20 cc IV ProHance. T2 bone marrow signal increase, T1 signal decrease with postgadoliniumenhancement involves the hallux metatarsal sesamoids, second metatarsalhead and adjacent se cond digit proximal phalanx and middle phalanx. Lessextensive marrow signal change is seen about theplantar third metatarsalhead. A signal void is seen within the first interdigital space which mayrelate to a drain or foreign body.Susceptibility artifact secondary to gasor foreign body is seen at thelevel of the dorsal distal great toe.Rim-enhancing, hyperintense T2 signal fluid and mottled signalvoids/dressing ?extend along the plantar margin of the forefoot at thelevel of the second MTP joint and second metatarsal with dorsal andproximal forefoot extension along the second through fifth metatarsals.There is also extension of this process around the great toe. Thiscollection partially surroundsthe extensor tendons of the first throughfifth rays. There is otherwise diffuse subcutaneous and intramuscular P0blhrna increase with enhancement. [facility], Radiant Results Inft User - 07/30/2020 6:00 AM CSTEXAM:MRI LEFT FOOT WITH AND WITHOUT IV CONTRAST HISTORY: Osteomyelitis, foot COMPARISON: Plain films dated 07/15/2020TECHNIQUE AND FINDINGS:1.5T multiplanar multiweighted MR imaging of the left foot wasperformedwith utilization of 20 cc IV ProHance.T2 bone marrow signal increase, T1 signal decrease with post gadoliniumenhancement involves the hallux metatarsal sesamoids, second metatarsalhead and adjacent second digit proximal phalanx and middle phalanx. Lessextensive marrow signal change is seen about the plantar third metatarsalhead. A signal void is seen within the first interdigital space whichmayrelate to a drain or foreign body.Susceptibility artifact secondary to gasor foreign body is seenat the level of the dorsal distal great toe.Rim-enhancing, hyperintense T2 signal fluid and mottled s ignalvoids/dressing extend along the plantar margin of the forefoot at thelevel of the second MTP joint and second metatarsal with dorsal andproximal forefoot extension along the second through fifth metatarsals.There is also extension of this process around the great toe. Thiscollection partially surrounds the extensor tendons of the first throughfifth rays. There is otherwise diffuse subcutaneous and intramuscular L2nyqdql increase with enhancement.IMPRESSIONForefoot plantar ulceration/gas and/or foreign debris with communicatingdorsal forefoot abscess partially surrounding the extensor tendons.Osteomyelitis involving the hallux sesamoid metatarsals, second metatarsalhead and second phalanx withpossible involvement of the third metatarsalhead.[facility] (NA, K, CL, CO2, GLUCOSE, BUN, CREATININE, CA)2020-07-30 10:56:00 Test Item Value Reference Range Interpretation Comments NA (test code = 132 mmol/L 135-145 L 2177613705) K (test code = 4.6 mmol/L 3.5-5 9978282291) CL (test code = 99 mmol/L 98-108 8012511358) CO2 TOTAL (test code = 27 mmol/L 23-31 1131548599) AGAP (test code = 2-16 7690630722) BUN (test code = 28 mg/dL 7-23 H 4826780454) GLUCOSE (test code = 142 mg/dL 70-110 H 3636819755) CREATININE (test code = 1.60 mg/dL 0.6-1.25 H 2514072089) CALCIUM (test code = 9.1 mg/dL 8.6-10.6 8434430103) eGFR Calculation mL/min/1.73m2 (Non-) (test code = 2618118540) eGFR Calculation mL/min/1.73m2 () (test code = 5458678948) DOMENIC (test code = DOMENIC) Association of [...] tests). Lab Interpretation Abnormal (test code = 05801-7) [facility] WITHOUT [id number] 10:46:00 Test Item Value Reference Range Interpretation Comments WBC (test code = 6690-2) See_Comment [A utomated message] The system [employer] generated this result transmit rony reference range : 4.20 - 10.70 10*3/?L. The reference range was not used to interpret this result as normal/abnormal . RBC (test code = 789-8) See_Comment L [Au tomated message] The system [employer] generated this result transmit rony reference range [...] See_Comment H [Au tomated message] The system [employer] generated this result transmit rony reference range : 150 - 328 10*3/?L. The reference range was not used to interpret this result as normal/abnormal . MPV (test code = 8.9 fL 9.8-13 L 94643-6) RDW-CV (test code = 12.2 % 12.1-15.4 788-0) RDW-SD (test code = 39.3 fL 38.5-51.6 41874-7) NRBC x10^3 (test code = <0.01 See_Comment [Au tomated message] 1858500718) The system [employer] generated this result transmit rony reference range : 10*3/?L. The reference range was not used to interpret this result as normal/abnormal . NRBC/100 WBC (test code See_Comment [Au tomated message] = 9340215430) The system [facility] generated this result transmit rony reference range : 0.0 - 10.0 /100 WBC s. The reference r yen was not used to interpret this result as normal/abnormal . IPF % (test code = 5061965675) Lab Interpretation (test Abnormal code = 07765-7) [facility] GLUCOSE (AUTOMATED)2020-07-30 03:57:00 Test Item Value Reference Range Interpretation Comments POCT GLU (test code = 2505148568) 182 mg/dL 70-110 H Lab Interpretation (test code = Abnormal 19359-8) [facility] GLUCOSE (AUTOMATED)2020-07-29 22:55:00 Test Item Value Reference Range Interpretation Comments POCT GLU (test code = 1306813195) 194 mg/dL 70-110 H Lab Interpretation (test code = Abnormal 23057-1) [facility] GLUCOSE (AUTOMATED)2020-07-29 18:23:00 Test Item Value Reference Range Interpretation Comments POCT GLU (test code = 7399904529) 189 mg/dL 70-110 H Lab Interpretation (test code = Abnormal 61755-1) [facility] GLUCOSE (AUTOMATED)2020-07-29 14:47:00 Test Item Value Reference Range Interpretation Comments POCT GLU (test code = 0709232039) 132 mg/dL 70-110 H Lab Interpretation (test code = Abnormal 27481-6) [facility] [id number] 11:19:53 No acute osseous abnormalities. The patient is safe for MR imaging. EXAM: XR BONE SURVEY HISTORY: MRI clearance COMPARISON: None FINDINGS: Limited imaging of the axial and appendicular skeleton demonstratessurgical clips over the right lower quadrant. Atelectasis versus earlyinfiltrate is seen withinthe left lower lung. Screw and plate fixationhardware secure a healing/healed proximal right tibial m etaphyseal fracturewith chronic osseous fragmentation of the right [...] skeleton demonstratessurgical clips over the right lower quadrant.Atelectasis versus earlyinfiltrate is seen within the left [...] osseous abnormalities.The patient is safe for MR imaging.[facility] METABOLIC PANEL (NA, K, CL, CO2, GLUCOSE, BUN, CREATININE, CA)2020-07-29 11:12:00 Test Item Value Reference Range Interpretation Comments NA (test code = 133 mmol/L 135-145 L 6606324941) K (test code = 4.6 mmol/L 3.5-5 0115735564) CL (test code = 99 mmol/L 98-108 2374222812) CO2 TOTAL (test code = 25 mmol/L 23-31 5479420203) AGAP (test code = 2-16 0973842347) BUN (test code = 26 mg/dL 7-23 H 2884850585) GLUCOSE (test code = 148 mg/dL 70-110 H 5208013874) CREATININE (test code = 1.65 mg/dL 0.6-1.25 H 9504965957) CALCIUM (test code = 9.1 mg/dL 8.6-10.6 2222625857) eGFR Calculation mL/min/1.73m2 (Non-) (test code = 0561178935) eGFR Calculation mL/min/1.73m2 () (test code = 7782734052) DOMENIC (test code = DOMENIC) Association of [...] tests). Lab Interpretation Abnormal (test code = 69804-8) [facility] WITHOUT [id number] 10:45:00 Test Item Value Reference Range Interpretation Comments WBC (test code = 6690-2) See_Comment H [A utomated message] The system [employer] generated this result transmit rony reference range : 4.20 - 10.70 10*3/?L. The reference range was not used to interpret this result as normal/abnormal . RBC (test code = 789-8) See_Comment L [Au tomated message] The system [employer] generated this result transmit rony reference range [...] See_Comment H [Au tomated message] The system [employer] generated this result transmit rony reference range : 150 - 328 10*3/?L. The reference range was not used to interpret this result as normal/abnormal . MPV (test code = 8.7 fL 9.8-13 L 02394-3) RDW-CV (test code = 12.2 % 12.1-15.4 788-0) RDW-SD (test code = 39.5 fL 38.5-51.6 20134-7) NRBC x10^3 (test code = <0.01 See_Comment [Au tomated message] 2890932133) The system [employer] generated this result transmit rony reference range : 10*3/?L. The reference range was not used to interpret this result as normal/abnormal . NRBC/100 WBC (test code See_Comment [Au tomated message] = 2685227655) The system [employer] generated this result transmit rony reference range : 0.0 - 10.0 /100 WBC s. The reference r yen was not used to interpret this result as normal/abnormal . IPF % (test code = 8744220444) Lab Interpretation (test Abnormal code = 81774-6) [facility] GLUCOSE (AUTOMATED)2020-07-29 02:54:00 Test Item Value Reference Range Interpretation Comments POCT GLU (test code = 8654558498) 238 mg/dL 70-110 H Lab Interpretation (test code = Abnormal 89026-8) [facility] GLUCOSE (AUTOMATED)2020-07-29 00:00:00 Test Item Value Reference Range Interpretation Comments POCT GLU (test code = 4751470114) 286 mg/dL 70-110 H Lab Interpretation (test code = Abnormal 52383-0) [facility] - Draw immediately prior to the NEXT dose, but, no more than 60 minutes before the NEXT dose. 2020-07-28 19:59:00 Test Item Value Reference Range Interpretation Comments VANCO TROUGH (test code 10.5 ug/mL 10-20 = 5561901781) DOMENIC (test code = DOMENIC) Toxic Range: ?>20 ug/mL 15-20 ug/mL is recommended for severe infection or when Vancomycin MARK ANTHONY is greater than or equal to 2. Lab Interpretation (test Normal code = 08219-8) [facility] GLUCOSE (AUTOMATED)2020-07-28 19:07:00 Test Item Value Reference Range Interpretation Comments POCT GLU (test code = 301 mg/dL 70-110 H Notifi ed Provider [id number]) Lab Interpretation (test Abnormal code = 59467-5) [facility] GLUCOSE (AUTOMATED)2020-07-28 16:20:00 Test Item Value Reference Range Interpretation Comments POCT GLU (test code = 3151716523) 154 mg/dL 70-110 H Lab Interpretation (test code = Abnormal 75602-8) [facility] GLUCOSE (AUTOMATED)2020-07-28 12:06:00 Test Item Value Reference Range Interpretation Comments POCT GLU (test code = 4257269622) 167 mg/dL 70-110 H Lab Interpretation (test code = Abnormal 23416-6) [facility] METABOLIC PANEL (NA, K, CL, CO2, GLUCOSE, BUN, CREATININE, CA)2020-07-28 11:49:00 Test Item Value Reference Range Interpretation Comments NA (test code = 134 mmol/L 135-145 L 7118544687) K (test code = 4.2 mmol/L 3.5-5 1535233006) CL (test code = 100 mmol/L 98-108 5788512811) CO2 TOTAL (test code = 29 mmol/L 23-31 3354502560) AGAP (test code = 2-16 2003777146) BUN (test code = 26 mg/dL 7-23 H 2946592566) GLUCOSE (test code = 156 mg/dL 70-110 H 6506387535) CREATININE (test code = 1.86 mg/dL 0.6-1.25 H 8110418973) CALCIUM (test code = 9.0 mg/dL 8.6-10.6 0356374812) eGFR Calculation mL/min/1.73m2 (Non-) (test code = 7284932060) eGFR Calculation mL/min/1.73m2 () (test code = 5352156526) DOMENIC (test code = DOMENIC) Association of [...] tests). Lab Interpretation Abnormal (test code = 42285-5) [facility] WITHOUT [id number] 11:16:00 Test Item Value Reference Range Interpretation Comments WBC (test code = 6690-2) See_Comment [A utomated message] The system [employer] generated this result transmit rony reference range : 4.20 - 10.70 10*3/?L. The reference range was not used to interpret this result as normal/abnormal . RBC (test code = 789-8) See_Comment L [Au tomated message] The system [employer] generated this result transmit rony reference range [...] See_Comment H [Au tomated message] The system [employer] generated this result transmit rony reference range : 150 - 328 10*3/?L. The reference range was not used to interpret this result as normal/abnormal . MPV (test code = 8.7 fL 9.8-13 L 54294-4) RDW-CV (test code = 12.2 % 12.1-15.4 788-0) RDW-SD (test code = 39.1 fL 38.5-51.6 94402-3) NRBC x10^3 (test code = <0.01 See_Comment [Au tomated message] 4981962580) The system [employer] generated this result transmit rony reference range : 10*3/?L. The reference range was not used to interpret this result as normal/abnormal . NRBC/100 WBC (test code See_Comment [Au tomated message] = 6559373365) The system [employer] generated this result transmit rony reference range : 0.0 - 10.0 /100 WBC s. The reference r yen was not used to interpret this result as normal/abnormal . IPF % (test code = 1675225471) Lab Interpretation (test Abnormal code = 69375-4) [facility] GLUCOSE (AUTOMATED)2020-07-28 03:20:00 Test Item Value Reference Range Interpretation Comments POCT GLU (test code = 8580610638) 255 mg/dL 70-110 H Lab Interpretation (test code = Abnormal 79024-2) [facility] GLUCOSE (AUTOMATED)2020-07-27 23:37:00 Test Item Value Reference Range Interpretation Comments POCT GLU (test code = 2114373272) 202 mg/dL 70-110 H Lab Interpretation (test code = Abnormal 89118-1) [facility] GLUCOSE (AUTOMATED)2020-07-27 20:39:00 Test Item Value Reference Range Interpretation Comments POCT GLU (test code = 9059281929) 119 mg/dL 70-110 H Lab Interpretation (test code = Abnormal 65912-4) [facility] GLUCOSE (AUTOMATED)2020-07-27 18:08:00 Test Item Value Reference Range Interpretation Comments POCT GLU (test code = 5335200489) 152 mg/dL 70-110 H Lab Interpretation (test code = Abnormal 02627-2) [facility] GLUCOSE (AUTOMATED)2020-07-27 14:31:00 Test Item Value Reference Range Interpretation Comments POCT GLU (test code = 9930927169) 145 mg/dL 70-110 H Lab Interpretation (test code = Abnormal 91487-6) [facility] METABOLIC PANEL (NA, K, CL, CO2, GLUCOSE, BUN, CREATININE, CA)2020-07-27 11:11:00 Test Item Value Reference Range Interpretation Comments NA (test code = 133 mmol/L 135-145 L 8337618222) K (test code = 4.3 mmol/L 3.5-5 Slight 2561376569) hemolysis CL (test code = 100 mmol/L 98-108 6312479252) CO2 TOTAL (test code 28 mmol/L 23-31 = 5801925176) AGAP (test code = 2-16 1395534850) BUN (test code = 21 mg/dL 7-23 Slight 7605878552) hemolysis GLUCOSE (test code = 151 mg/dL 70-110 H 2773081486) CREATININE (test code 1.51 mg/dL 0.6-1.25 H = 5072169104) CALCIUM (test code = 8.8 mg/dL 8.6-10.6 1296881718) eGFR Calculation mL/min/1.73m2 (Non-) (test code = 3405449139) eGFR Calculation mL/min/1.73m2 () (test code = 3229531427) DOMENIC (test code = DOMENIC) Association of [...] tests). Lab Interpretation Abnormal (test code = 84675-7) [facility] WITHOUT [id number] 10:56:00 Test Item Value Reference Range Interpretation Comments WBC (test code = 6690-2) See_Comment [A utomated message] The system [employer] generated this result transmit rony reference range : 4.20 - 10.70 10*3/?L. The reference range was not used to interpret this result as normal/abnormal . RBC (test code = 789-8) See_Comment L [Au tomated message] The system [employer] generated this result transmit rony reference range [...] See_Comment H [Au tomated message] The system [employer] generated this result transmit rony reference range : 150 - 328 10*3/?L. The reference range was not used to interpret this result as normal/abnormal . MPV (test code = 9.2 fL 9.8-13 L 58711-7) RDW-CV (test code = 12.1 % 12.1-15.4 788-0) RDW-SD (test code = 38.9 fL 38.5-51.6 43907-9) NRBC x10^3 (test code = <0.01 See_Comment [Au tomated message] 0946504841) The system [employer] generated this result transmit rony reference range : 10*3/?L. The reference range was not used to interpret this result as normal/abnormal . NRBC/100 WBC (test code See_Comment [Au tomated message] = 2541223042) The system [employer] generated this result transmit rony reference range : 0.0 - 10.0 /100 WBC s. The reference r yen was not used to interpret this result as normal/abnormal . IPF % (test code = 7921853046) Lab Interpretation (test Abnormal code = 39604-8) [facility] [id number] 04:21:00COVID DMT InterpretationInterpretation/Recommendations: Molecular NAAT Tests for [...] Tests for IgM and/or IgG Antibodies to the SARS-CoV-2 Virus: If the patient develops COVID-19 illness in the future, testing for IgM and IgG antibodies approximately 3 weeks [...] COVID-19 testing the patient has had at [facility], including molecular NAAT testing (more commonly known as PCR testing and Rapid ID Now testing) and antibody testing. It does not take into account any testingthat a patient has had outside of the [facility] medical record. [facility] LABORATORY SERVICESCOVID UcevwnxMVLO-PoK-4 Rapid ID NOW (no units) ? ? Date ? Value ? 07/26/2020 ? Not Detected ? ? ? 07/21/2020 ? Not Detected ? ? ? 07/14/2020 ? Not Detected ? [facility] 2020-07-27 02:29:00 Test Item Value Reference Range Interpretation Comments POCT GLU (test code = 9960708119) 179 mg/dL 70-110 H Lab Interpretation (test code = Abnormal 67944-8) [facility] (ID NOW RAPID TESTING)2020-07-26 23:15:00 Test Item Value Reference Range Interpretation Comments SARS-CoV-2 Rapid ID NOW Not Detected Not Detected (test code = 31350-2) DOMENIC (test code = DOMENIC) ID NOW COVID-19 Assay is an isothermal nucleic acid amplification test intended for the qualitative detection of nucleic acid from SARS-CoV-2 viral RNA in nasopharyngeal (CASE MONITOR) specimens. It is used under Emergency Use [...] indicated. Lab Interpretation Normal (test code = 14894-5) [facility] GLUCOSE (AUTOMATED)2020-07-26 23:09:00 Test Item Value Reference Range Interpretation Comments POCT GLU (test code = 0792638354) 215 mg/dL 70-110 H Lab Interpretation (test code = Abnormal 91308-0) [facility] GLUCOSE (AUTOMATED)2020-07-26 19:01:00 Test Item Value Reference Range Interpretation Comments POCT GLU (test code = 2200400181) 194 mg/dL 70-110 H Lab Interpretation (test code = Abnormal 43292-4) [facility] GLUCOSE (AUTOMATED)2020-07-26 15:04:00 Test Item Value Reference Range Interpretation Comments POCT GLU (test code = 6345080419) 115 mg/dL 70-110 H Lab Interpretation (test code = Abnormal 00732-5) [facility] METABOLIC PANEL (NA, K, CL, CO2, GLUCOSE, BUN, CREATININE, CA)2020-07-26 12:22:00 Test Item Value Reference Range Interpretation Comments NA (test code = 134 mmol/L 135-145 L 0689870248) K (test code = 4.6 mmol/L 3.5-5 4000841694) CL (test code = 100 mmol/L 98-108 8767495825) CO2 TOTAL (test code = 25 mmol/L 23-31 9229631874) AGAP (test code = 2-16 8658653634) BUN (test code = 20 mg/dL 7-23 6144069218) GLUCOSE (test code = 110 mg/dL 70-110 7388657150) CREATININE (test code = 1.57 mg/dL 0.6-1.25 H 7848596526) CALCIUM (test code = 8.6 mg/dL 8.6-10.6 1270284819) eGFR Calculation mL/min/1.73m2 (Non-) (test code = 8765044918) eGFR Calculation mL/min/1.73m2 () (test code = 1548425447) DOMENIC (test code = DOMENIC) Association of [...] tests). Lab Interpretation Abnormal (test code = 21696-8) [facility] WITHOUT [id number] 11:49:00 Test Item Value Reference Range Interpretation Comments WBC (test code = 6690-2) See_Comment [A utomated message] The system [employer] generated this result transmit rony reference range : 4.20 - 10.70 10*3/?L. The reference range was not used to interpret this result as normal/abnormal . RBC (test code = 789-8) See_Comment L [Au tomated message] The system [employer] generated this result transmit rony reference range [...] See_Comment H [Au tomated message] The system [employer] generated this result transmit rony reference range : 150 - 328 10*3/?L. The reference range was not used to interpret this result as normal/abnormal . MPV (test code = 8.9 fL 9.8-13 L 56394-2) RDW-CV (test code = 12.0 % 12.1-15.4 L 788-0) RDW-SD (test code = 39.2 fL 38.5-51.6 22332-1) NRBC x10^3 (test code = <0.01 See_Comment [Au tomated message] 0168735774) The system [employer] generated this result transmit rony reference range : 10*3/?L. The reference range was not used to interpret this result as normal/abnormal . NRBC/100 WBC (test code See_Comment [Au tomated message] = 1808313308) The system [employer] generated this result transmit rony reference range : 0.0 - 10.0 /100 WBC s. The reference r yen was not used to interpret this result as normal/abnormal . IPF % (test code = 8146523656) Lab Interpretation (test Abnormal code = 32887-9) [facility] GLUCOSE (AUTOMATED)2020-07-26 03:06:00 Test Item Value Reference Range Interpretation Comments POCT GLU (test code = 8817319630) 173 mg/dL 70-110 H Lab Interpretation (test code = Abnormal 96576-4) [facility] GLUCOSE (AUTOMATED)2020-07-25 23:06:00 Test Item Value Reference Range Interpretation Comments POCT GLU (test code = 8531991298) 218 mg/dL 70-110 H Lab Interpretation (test code = Abnormal 69915-9) [facility]Vanst[facility] care systemycin Trough Level - Draw immediately prior to the NEXT dose, but, no more than 60 minutes before the NEXT dose. 2020-07-25 21:22:00 Test Item Value Reference Range Interpretation Comments VANCO TROUGH (test code 11.8 ug/mL 03-29 = 5739066884) DOMENIC (test code = DOMENIC) Toxic Range: ?>20 ug/mL 15-20 ug/mL is recommended for severe infection or when Vancomycin MARK ANTHONY is greater than or equal to 2. Lab Interpretation (test Normal code = 25460-0) [facility]2020-07-25 16:23:00 Test Item Value Reference Range Interpretation Comments POCT GLU (test code = 4961529841) 133 mg/dL 70-110 H Lab Interpretation (test code = Abnormal 39412-3) [facility] (NA, K, CL, CO2, GLUCOSE, BUN, CREATININE, CA)2020-07-25 12:54:00 Test Item Value Reference Range Interpretation Comments NA (test code = 135 mmol/L 135-145 2965085268) K (test code = 4.3 mmol/L 3.5-5 3797537393) CL (test code = 99 mmol/L 98-108 0010883494) CO2 TOTAL (test code = 30 mmol/L 23-31 6761872532) AGAP (test code = 2-16 0887523783) BUN (test code = 16 mg/dL 7-23 8154934301) GLUCOSE (test code = 128 mg/dL 70-110 H 4987436775) CREATININE (test code = 1.63 mg/dL 0.6-1.25 H 2650958156) CALCIUM (test code = 9.1 mg/dL 8.6-10.6 4311931989) eGFR Calculation mL/min/1.73m2 (Non-) (test code = 0076040789) eGFR Calculation mL/min/1.73m2 () (test code = 2264817395) DOMENIC (test code = DOMENIC) Association of [...] tests). Lab Interpretation Abnormal (test code = 72871-3) [facility] WITH [id number] 12:33:00 Test Item Value Reference Range Interpretation [...] RDW-SD (test code = 38.8 fL 38.5-51.6 85740-5) RDW-CV (test code = 12.0 % 12.1-15.4 L 788-0) PLT (test code = See_Comment H [Automated 777-3) message] The sy stem which generated this result transmitted reference range : 150 - 328 10*3/ ?L. The reference r yen was not used to interpret this result as normal/abnormal . MPV (test code = 8.7 fL 9.8-13 L 49881-1) NRBC/100 WBC (test See_Comment [Automat ed code = 6388456032) message] The system which generated this result transmitted reference range : 0.0 - 10.0 /100 WBCs. The refer ence range was not u sed to interpret th is result as normal/abnormal . NRBC x10^3 (test code <0.01 See_Comment [Auto mated = 1129332955) message] The s ystem which generated this result transmitted reference range : 10*3/?L. The reference range was not used to interpret this result as normal/abnormal . GRAN MAT (NEUT) % 68.9 % (test code = 770-8) IMM GRAN % (test code 1.10 % = 9777388991) LYMPH % (test code = 21.0 % 736-9) MONO % (test code = 6.5 % 5905-5) EOS % (test code = 1.9 % 713-8) BASO % (test code = 0.6 % 706-2) GRAN MAT x10^3(ANC) 8.53 10*3/uL 1.99-6.95 H (test code = 7788382930) IMM GRAN x10^3 (test 0.13 10*3/uL 0-0.06 H code = 9438211299) LYMPH x10^3 (test code 2.60 10*3/uL 1.09-3.23 = 731-0) MONO x10^3 (test code 0.80 10*3/uL 0.36-1.02 = 742-7) EOS x10^3 (test code = 0.23 10*3/uL 0.06-0.53 711-2) BASO x10^3 (test code 0.08 10*3/uL 0.01-0.09 = 704-7) Lab Interpretation Abnormal (test code = 61898-8) [facility] GLUCOSE (AUTOMATED)2020-07-25 03:17:00 Test Item Value Reference Range Interpretation Comments POCT GLU (test code = 7416522245) 214 mg/dL 70-110 H Lab Interpretation (test code = Abnormal 49887-8) [facility] GLUCOSE (AUTOMATED)2020-07-24 23:04:00 Test Item Value Reference Range Interpretation Comments POCT GLU (test code = 1652643271) 193 mg/dL 70-110 H Lab Interpretation (test code = Abnormal 97637-5) [facility] GLUCOSE (AUTOMATED)2020-07-24 19:02:00 Test Item Value Reference Range Interpretation Comments POCT GLU (test code = 5346764250) 146 mg/dL 70-110 H Lab Interpretation (test code = Abnormal 91276-5) [facility] GLUCOSE (AUTOMATED)2020-07-24 14:36:00 Test Item Value Reference Range Interpretation Comments POCT GLU (test code = 9245694011) 113 mg/dL 70-110 H Lab Interpretation (test code = Abnormal 84960-9) [facility] GLUCOSE (AUTOMATED)2020-07-24 09:34:00 Test Item Value Reference Range Interpretation Comments POCT GLU (test code = 8044595887) 125 mg/dL 70-110 H Lab Interpretation (test code = Abnormal 86167-9) [facility] METABOLIC PANEL (NA, K, CL, CO2, GLUCOSE, BUN, CREATININE, CA)2020-07-24 07:07:00 Test Item Value Reference Range Interpretation Comments NA (test code = 131 mmol/L 135-145 L 0598248733) K (test code = 4.1 mmol/L 3.5-5 8572455310) CL (test code = 99 mmol/L 98-108 3479835298) CO2 TOTAL (test code = 27 mmol/L 23-31 1613727674) AGAP (test code = 2-16 8146110689) BUN (test code = 17 mg/dL 7-23 1410396130) GLUCOSE (test code = 149 mg/dL 70-110 H 5291155675) CREATININE (test code = 1.56 mg/dL 0.6-1.25 H 4979566725) CALCIUM (test code = 8.5 mg/dL 8.6-10.6 L 6642320614) eGFR Calculation mL/min/1.73m2 (Non-) (test code = 6343727139) eGFR Calculation mL/min/1.73m2 () (test code = 1674168520) DOMENIC (test code = DOMENIC) Association of [...] tests). Lab Interpretation Abnormal (test code = 19098-3) [facility] Test Item Value Reference Range Interpretation Comments MAGNESIUM (test code = 5045902685) 2.0 mg/dL 1.7-2.4 Lab Interpretation (test code = Normal 26178-3) [facility] GLUCOSE (AUTOMATED)2020-07-24 06:36:00 Test Item Value Reference Range Interpretation Comments POCT GLU (test code = 1631555590) 150 mg/dL 70-110 H Lab Interpretation (test code = Abnormal 88973-7) [facility] GLUCOSE (AUTOMATED)2020-07-24 03:11:00 Test Item Value Reference Range Interpretation Comments POCT GLU (test code = 7068258440) 180 mg/dL 70-110 H Lab Interpretation (test code = Abnormal 44587-8) [facility] GLUCOSE (AUTOMATED)2020-07-23 23:34:00 Test Item Value Reference Range Interpretation Comments POCT GLU (test code = 218 mg/dL 70-110 H Notifi ed Provider 7223574348) Lab Interpretation (test Abnormal code = 41585-8) [facility] GLUCOSE (AUTOMATED)2020-07-23 19:55:00 Test Item Value Reference Range Interpretation Comments POCT GLU (test code = 3708913874) 198 mg/dL 70-110 H Lab Interpretation (test code = Abnormal 29746-9) [facility] GLUCOSE (AUTOMATED)2020-07-23 16:23:00 Test Item Value Reference Range Interpretation Comments POCT GLU (test code = 4158099308) 162 mg/dL 70-110 H Lab Interpretation (test code = Abnormal 64279-0) [facility] CULTURE [id number] 16:01:00 Test Item Value Reference Range Interpretation Comments Blood Culture-Aerobic No organisms No growth Previo us (test code = 02609-0) isolated prelim inary verified result was Culture In Progress on 07/18/2020 at 130 1 CSTPrevious preliminary verified result was No growth a t 24 hours on 07/19/2020 at 100 1 CSTPrevious preliminary verified result was No growth a t 48 hours on 07/20/2020 at 10 01 CSTPrevious preliminary verified result was No growth a t 72 hours on 07/21/2020 at 10 01 [employer] Blood No organisms No growth Previous Culture-Anaerobic isolated preliminar y (test code = 45966-8) verifi ed result was Culture In Progress on 07/18/2020 at 130 1 CSTPrevious preliminary verified result was No growth a t 24 hours on 07/19/2020 at 100 1 CSTPrevious preliminary verified result was No growth a t 48 hours on 07/20/2020 at 10 01 CSTPrevious preliminary verified result was No growth a t 72 hours on 07/21/2020 at 10 01 [employer] Lab Interpretation Normal (test code = 54865-5) [facility] CULTURE [id number] 16:01:00 Test Item Value Reference Range Interpretation Comments Blood Culture-Aerobic No organisms No growth Previo us (test code = 42945-4) isolated prelim inary verified result was Culture In Progress on 07/18/2020 at 130 1 CSTPrevious preliminary verified result was No growth a t 24 hours on 07/19/2020 at 100 1 CSTPrevious preliminary verified result was No growth a t 48 hours on 07/20/2020 at 10 01 CSTPrevious preliminary verified result was No growth a t 72 hours on 07/21/2020 at 10 01 [employer] Blood No organisms No growth Previous Culture-Anaerobic isolated preliminar y (test code = 89248-4) verifi ed result was Culture In Progress on 07/18/2020 at 130 1 CSTPrevious preliminary verified result was No growth a t 24 hours on 07/19/2020 at 100 1 CSTPrevious preliminary verified result was No growth a t 48 hours on 07/20/2020 at 10 01 CSTPrevious preliminary verified result was No growth a t 72 hours on 07/21/2020 at 10 01 [employer] Lab Interpretation Normal (test code = 66991-4) [facility] [id number] 12:03:00 Test Item Value Reference Range Interpretation Comments VANCO RANDOM (test code = 16.3 ug/mL 5306476593) [facility] (NA, K, CL, CO2, GLUCOSE, BUN, CREATININE, CA)2020-07-23 11:58:00 Test Item Value Reference Range Interpretation Comments NA (test code = 132 mmol/L 135-145 L 1055159855) K (test code = 4.5 mmol/L 3.5-5 1104932639) CL (test code = 100 mmol/L 98-108 3839480176) CO2 TOTAL (test code = 24 mmol/L 23-31 7449580007) AGAP (test code = 2-16 0642863734) BUN (test code = 17 mg/dL 7-23 6963290199) GLUCOSE (test code = 137 mg/dL 70-110 H 8542269814) CREATININE (test code = 1.78 mg/dL 0.6-1.25 H 2246902375) CALCIUM (test code = 8.5 mg/dL 8.6-10.6 L 9822594601) eGFR Calculation mL/min/1.73m2 (Non-) (test code = 8582174733) eGFR Calculation mL/min/1.73m2 () (test code = 9562558686) DOMENIC (test code = DOMENIC) Association of [...] tests). Lab Interpretation Abnormal (test code = 42350-7) [facility] 11:58:00 Test Item Value Reference Range Interpretation Comments MAGNESIUM (test code = 1203311164) 2.0 mg/dL 1.7-2.4 Lab Interpretation (test code = Normal 67709-1) [facility]2020-07-23 10:39:00 Test Item Value Reference Range Interpretation Comments POCT GLU (test code = 6110563248) 134 mg/dL 70-110 H Lab Interpretation (test code = Abnormal 08154-5) [facility] GLUCOSE (AUTOMATED)2020-07-23 06:03:00 Test Item Value Reference Range Interpretation Comments POCT GLU (test code = 4816025016) 163 mg/dL 70-110 H Lab Interpretation (test code = Abnormal 63058-1) [facility] GLUCOSE (AUTOMATED)2020-07-23 03:35:00 Test Item Value Reference Range Interpretation Comments POCT GLU (test code = 7559865996) 236 mg/dL 70-110 H Lab Interpretation (test code = Abnormal 56986-2) [facility] GLUCOSE (AUTOMATED)2020-07-22 23:51:00 Test Item Value Reference Range Interpretation Comments POCT GLU (test code = 5494275817) 244 mg/dL 70-110 H Lab Interpretation (test code = Abnormal 23124-4) [facility] (NA, K, CL, CO2, GLUCOSE, BUN, CREATININE, CA)2020-07-22 20:49:00 Test Item Value Reference Range Interpretation Comments NA (test code = 132 mmol/L 135-145 L 8178319465) K (test code = 4.0 mmol/L 3.5-5 5148891728) CL (test code = 98 mmol/L 98-108 4422361711) CO2 TOTAL (test code = 26 mmol/L 23-31 4681627533) AGAP (test code = 2-16 5706099308) BUN (test code = 17 mg/dL 7-23 8765205661) GLUCOSE (test code = 279 mg/dL 70-110 H 0169985585) CREATININE (test code = 1.89 mg/dL 0.6-1.25 H 4911661394) CALCIUM (test code = 8.6 mg/dL 8.6-10.6 9590515711) eGFR Calculation mL/min/1.73m2 (Non-) (test code = 7531603617) eGFR Calculation mL/min/1.73m2 () (test code = 2099639653) DOMENIC (test code = DOMENIC) Association of [...] tests). Lab Interpretation Abnormal (test code = 62442-6) [facility] GLUCOSE (AUTOMATED)2020-07-22 19:08:00 Test Item Value Reference Range Interpretation Comments POCT GLU (test code = 1672140000) 189 mg/dL 70-110 H Lab Interpretation (test code = Abnormal 05465-0) [facility] GLUCOSE (AUTOMATED)2020-07-22 15:05:00 Test Item Value Reference Range Interpretation Comments POCT GLU (test code = 0755580189) 144 mg/dL 70-110 H Lab Interpretation (test code = Abnormal 72658-5) [facility] (NA, K, CL, CO2, GLUCOSE, BUN, CREATININE, CA)2020-07-22 12:20:00 Test Item Value Reference Range Interpretation Comments NA (test code = 132 mmol/L 135-145 L 3183458771) K (test code = 3.7 mmol/L 3.5-5 6198755268) CL (test code = 100 mmol/L 98-108 5441130904) CO2 TOTAL (test code = 23 mmol/L 23-31 9522263730) AGAP (test code = 2-16 8162697202) BUN (test code = 17 mg/dL 7-23 2229016372) GLUCOSE (test code = 145 mg/dL 70-110 H 7609702992) CREATININE (test code = 1.88 mg/dL 0.6-1.25 H 3520013632) CALCIUM (test code = 8.2 mg/dL 8.6-10.6 L 1513230371) eGFR Calculation mL/min/1.73m2 (Non-) (test code = 8676636187) eGFR Calculation mL/min/1.73m2 () (test code = 7798759599) DOMENIC (test code = DOMENIC) Association of [...] tests). Lab Interpretation Abnormal (test code = 15743-0) [facility] Test Item Value Reference Range Interpretation Comments MAGNESIUM (test code = 6028245740) 2.0 mg/dL 1.7-2.4 Lab Interpretation (test code = Normal 35368-0) [facility] WITHOUT [id number] 12:09:00 Test Item Value Reference Range Interpretation Comments WBC (test code = 6690-2) See_Comment H [A utomated message] The system [employer] generated this result transmit rony reference range : 4.20 - 10.70 10*3/?L. The reference range was not used to interpret this result as normal/abnormal . RBC (test code = 789-8) See_Comment L [Au tomated message] The system [employer] generated this result transmit rony reference range [...] See_Comment H [Au tomated message] The system [employer] generated this result transmit rony reference range : 150 - 328 10*3/?L. The reference range was not used to interpret this result as normal/abnormal . MPV (test code = 9.1 fL 9.8-13 L 60101-3) RDW-CV (test code = 12.2 % 12.1-15.4 788-0) RDW-SD (test code = 39.8 fL 38.5-51.6 88366-6) NRBC x10^3 (test code = <0.01 See_Comment [Au tomated message] 4874480231) The system [employer] generated this result transmit rony reference range : 10*3/?L. The reference range was not used to interpret this result as normal/abnormal . NRBC/100 WBC (test code See_Comment [Au tomated message] = 5993876370) The system [employer] generated this result transmit rony reference range : 0.0 - 10.0 /100 WBC s. The reference r yen was not used to interpret this result as normal/abnormal . IPF % (test code = 6958920358) Lab Interpretation (test Abnormal code = 26719-0) [facility] GLUCOSE (AUTOMATED)2020-07-22 11:50:00 Test Item Value Reference Range Interpretation Comments POCT GLU (test code = 7631687659) 127 mg/dL 70-110 H Lab Interpretation (test code = Abnormal 51779-3) [facility] GLUCOSE (AUTOMATED)2020-07-22 10:17:00 Test Item Value Reference Range Interpretation Comments POCT GLU (test code = 4119943414) 138 mg/dL 70-110 H Lab Interpretation (test code = Abnormal 00146-8) [facility] GLUCOSE (AUTOMATED)2020-07-22 08:50:00 Test Item Value Reference Range Interpretation Comments POCT GLU (test code = 8340781114) 157 mg/dL 70-110 H Lab Interpretation (test code = Abnormal 16046-9) [facility] GLUCOSE (AUTOMATED)2020-07-22 06:30:00 Test Item Value Reference Range Interpretation Comments POCT GLU (test code = 7016097508) 182 mg/dL 70-110 H Lab Interpretation (test code = Abnormal 40487-6) [facility] GLUCOSE (AUTOMATED)2020-07-22 04:37:00 Test Item Value Reference Range Interpretation Comments POCT GLU (test code = 0785803296) 226 mg/dL 70-110 H Lab Interpretation (test code = Abnormal 58947-6) [facility] URINE [id number] 01:16:00 Test Item Value Reference Range Interpretation Comments NA URINE (test code = 0052177903) 120 mmol/L [facility] URINE [id number] 01:16:00 Test Item Value Reference Range Interpretation Comments CREAT U (test code = 5613116362) 64.1 mg/dL [facility] GLUCOSE (AUTOMATED)2020-07-22 00:01:00 Test Item Value Reference Range Interpretation Comments POCT GLU (test code = 8266826244) 184 mg/dL 70-110 H Lab Interpretation (test code = Abnormal 51596-8) [facility] COVID [id number] 23:21:00COVID DMT InterpretationInterpretation/Recommendations: Molecular NAAT Tests for [...] whether the patient is immune to future infectionswith the SARS-CoV-2 virus. Interpretation Result Comments:These interpretation comments are based upon all COVID-19 testing the patient has had at [facility], including molecular NAAT testing (more commonly known as PCR testing and Rapid ID Now testing) and antibody testing. It does not take into account any testing that a patient hashad outside of the [facility] medical record. [facility] LABORATORY SERVICESCOVID UrrmbymWWCM-FoD-3 Rapid ID NOW(no units) ? ? Date ? Value ? 07/21/2020 ? Not Detected ? ? ? 07/14/2020 ? Not Detected ? [facility]com[facility] Trough Level - Draw immediately prior to the 1030 dose on 07/21/20 due to increasing [id number] 22:54:00 Test Item Value Reference Range Interpretation Comments VANCO TROUGH (test code 19.5 ug/mL 10-20 = 8743554952) DOMENIC (test code = DOMENIC) Toxic Range: ?>20 ug/mL 15-20 ug/mL is recommended for severe infection or when Vancomycin MARK ANTHONY is greater than or equal to 2. Lab Interpretation (test Normal code = 80141-5) [facility] GLUCOSE (AUTOMATED)2020-07-21 20:54:00 Test Item Value Reference Range Interpretation Comments POCT GLU (test code = 3237270046) 163 mg/dL 70-110 H Lab Interpretation (test code = Abnormal 71049-5) [facility] GLUCOSE (AUTOMATED)2020-07-21 18:10:00 Test Item Value Reference Range Interpretation Comments POCT GLU (test code = 2628715083) 156 mg/dL 70-110 H Lab Interpretation (test code = Abnormal 99381-7) [facility] (ID NOW RAPID TESTING)2020-07-21 16:49:00 Test Item Value Reference Range Interpretation Comments SARS-CoV-2 Rapid ID NOW Not Detected Not Detected (test code = 50246-7) DOMENIC (test code = DOMENIC) ID NOW COVID-19 Assay is an isothermal nucleic acid amplification test intended for the qualitative detection of nucleic acid from SARS-CoV-2 viral RNA in nasopharyngeal (CASE MONITOR) specimens. It is used under Emergency Use [...] indicated. Lab Interpretation Normal (test code = 28303-2) [facility]2020-07-21 13:58:00 Test Item Value Reference Range Interpretation Comments POCT GLU (test code = 0065164173) 136 mg/dL 70-110 H Lab Interpretation (test code = Abnormal 48440-8) [facility] METABOLIC PANEL (NA, K, CL, CO2, GLUCOSE, BUN, CREATININE, CA)2020-07-21 10:30:00 Test Item Value Reference Range Interpretation Comments NA (test code = 133 mmol/L 135-145 L 8253957033) K (test code = 3.8 mmol/L 3.5-5 3033547758) CL (test code = 99 mmol/L 98-108 0766729228) CO2 TOTAL (test code = 24 mmol/L 23-31 0410806739) AGAP (test code = 2-16 0747473043) BUN (test code = 17 mg/dL 7-23 4286207229) GLUCOSE (test code = 243 mg/dL 70-110 H 3728571479) CREATININE (test code = 1.87 mg/dL 0.6-1.25 H 7270663972) CALCIUM (test code = 8.1 mg/dL 8.6-10.6 L 3544608194) eGFR Calculation mL/min/1.73m2 (Non-) (test code = 1350898895) eGFR Calculation mL/min/1.73m2 () (test code = 1156262161) DOMENIC (test code = DOMENIC) Association of [...] tests). Lab Interpretation Abnormal (test code = 97898-6) [facility] 10:30:00 Test Item Value Reference Range Interpretation Comments MAGNESIUM (test code = 2647812926) 1.9 mg/dL 1.7-2.4 Lab Interpretation (test code = Normal 27412-7) [facility] WITH [id number] 10:22:00 Test Item Value Reference Range Interpretation Comments WBC (test code = See_Comment H [Automated 7690-2) message] The system which generated this result transmit rony reference range : 4.20 - 10.70 10*3/?L. The reference range was not used to interpret this result as normal/abnormal . RBC (test code = See_Comment L [Automated 679-8) message] The system which generated this result [...] RDW-SD (test code = 39.1 fL 38.5-51.6 96288-6) RDW-CV (test code = 12.1 % 12.1-15.4 788-0) PLT (test code = See_Comment H [Automated 777-3) message] The system which generated this result transmit rony reference range : 150 - 328 10*3/ ?L. The reference range was not u sed to interpret th is result as normal/abnormal . MPV (test code = 9.6 fL 9.8-13 L 89783-8) NRBC/100 WBC (test See_Comment [Automat ed code = 1101189005) message] The system which generated this result transmit rony reference range : 0.0 - 10.0 /100 WBCs. The reference range was not used to interpret this result as normal/abnormal . NRBC x10^3 (test code <0.01 See_Comment [Auto mated = 6585434023) message] The system which generated this result transmit rony reference range : 10*3/?L. The reference range was not used to interpret this result as normal/abnormal . GRAN MAT (NEUT) % 81.0 % (test code = 770-8) IMM GRAN % (test code 1.00 % = 4831083801) LYMPH % (test code = 9.8 % 736-9) MONO % (test code = 7.1 % 5905-5) EOS % (test code = 0.8 % 713-8) BASO % (test code = 0.3 % 706-2) GRAN MAT x10^3(ANC) 11.43 10*3/uL 1.99-6.95 H (test code = 1736731837) IMM GRAN x10^3 (test 0.14 10*3/uL 0-0.06 H code = 9770936032) LYMPH x10^3 (test code 1.38 10*3/uL 1.09-3.23 = 731-0) MONO x10^3 (test code 1.00 10*3/uL 0.36-1.02 = 742-7) EOS x10^3 (test code = 0.11 10*3/uL 0.06-0.53 711-2) BASO x10^3 (test code 0.04 10*3/uL 0.01-0.09 = 704-7) Lab Interpretation Abnormal (test code = 37032-6) [facility] GLUCOSE (AUTOMATED)2020-07-21 09:31:00 Test Item Value Reference Range Interpretation Comments POCT GLU (test code = 2847090442) 433 mg/dL 70-110 H Lab Interpretation (test code = Abnormal 20190-4) [facility] GLUCOSE (AUTOMATED)2020-07-21 09:31:00 Test Item Value Reference Range Interpretation Comments POCT GLU (test code = 8912048718) 176 mg/dL 70-110 H Lab Interpretation (test code = Abnormal 97065-6) [facility]Van[facility] systemycin Trough Level - Draw immediately prior to the 4TH dose, but, no more than 60 minutes before the 4TH dose. 2020-07-21 04:19:00 Test Item Value Reference Range Interpretation Comments VANCO TROUGH (test code 22.5 ug/mL 10-20 H = 6419959956) DOMENIC (test code = DOMENIC) Toxic Range: ?>20 ug/mL 15-20 ug/mL is recommended for severe infection or when Vancomycin MARK ANTHONY is greater than or equal to 2. Lab Interpretation (test Abnormal code = 02356-0) [facility] GLUCOSE (AUTOMATED)2020-07-21 03:26:00 Test Item Value Reference Range Interpretation Comments POCT GLU (test code = 0724799071) 206 mg/dL 70-110 H Lab Interpretation (test code = Abnormal 95662-3) [facility] GLUCOSE (AUTOMATED)2020-07-20 23:40:00 Test Item Value Reference Range Interpretation Comments POCT GLU (test code = 8481436277) 201 mg/dL 70-110 H Lab Interpretation (test code = Abnormal 44560-3) [facility] GLUCOSE (AUTOMATED)2020-07-20 18:44:00 Test Item Value Reference Range Interpretation Comments POCT GLU (test code = 1447080520) 178 mg/dL 70-110 H Lab Interpretation (test code = Abnormal 43153-1) [facility] GLUCOSE (AUTOMATED)2020-07-20 15:02:00 Test Item Value Reference Range Interpretation Comments POCT GLU (test code = 8064167127) 151 mg/dL 70-110 H Lab Interpretation (test code = Abnormal 41781-1) [facility] METABOLIC PANEL (NA, K, CL, CO2, GLUCOSE, BUN, CREATININE, CA)2020-07-20 11:40:00 Test Item Value Reference Range Interpretation Comments NA (test code = 131 mmol/L 135-145 L 7491415672) K (test code = 3.9 mmol/L 3.5-5 9239143912) CL (test code = 96 mmol/L 98-108 L 0105111591) CO2 TOTAL (test code = 24 mmol/L 23-31 7045318749) AGAP (test code = 2-16 9144835077) BUN (test code = 14 mg/dL 7-23 0076110874) GLUCOSE (test code = 157 mg/dL 70-110 H 6399838718) CREATININE (test code = 1.12 mg/dL 0.6-1.25 0663536393) CALCIUM (test code = 8.6 mg/dL 8.6-10.6 5346554761) eGFR Calculation mL/min/1.73m2 (Non-) (test code = 7317777710) eGFR Calculation mL/min/1.73m2 () (test code = 4856561371) DOMENIC (test code = DOMENIC) Association of [...] tests). Lab Interpretation Abnormal (test code = 41915-5) [facility] 11:40:00 Test Item Value Reference Range Interpretation Comments MAGNESIUM (test code = 6868110223) 2.0 mg/dL 1.7-2.4 Lab Interpretation (test code = Normal 34220-0) [facility] WITH [id number] 11:12:00 Test Item Value Reference Range Interpretation [...] RDW-SD (test code = 38.9 fL 38.5-51.6 87572-5) RDW-CV (test code = 12.0 % 12.1-15.4 L 788-0) PLT (test code = See_Comment H [Automated 777-3) message] The system which generated this result transmit rony reference range : 150 - 328 10*3/ ?L. The reference range was not u sed to interpret th is result as normal/abnormal . MPV (test code = 9.4 fL 9.8-13 L 98357-0) NRBC/100 WBC (test See_Comment [Automat ed code = 6617746712) message] The system which generated this result transmit rony reference range : 0.0 - 10.0 /100 WBCs. The reference range was not used to interpret this result as normal/abnormal . NRBC x10^3 (test code <0.01 See_Comment [Auto mated = 0618218644) message] The system which generated this result transmit rony reference range : 10*3/?L. The reference range was not used to interpret this result as normal/abnormal . GRAN MAT (NEUT) % 78.1 % (test code = 770-8) IMM GRAN % (test code 0.90 % = 9051616875) LYMPH % (test code = 12.7 % 736-9) MONO % (test code = 6.9 % 5905-5) EOS % (test code = 1.1 % 713-8) BASO % (test code = 0.3 % 706-2) GRAN MAT x10^3(ANC) 13.11 10*3/uL 1.99-6.95 H (test code = 1739418022) IMM GRAN x10^3 (test 0.15 10*3/uL 0-0.06 H code = 8640865910) LYMPH x10^3 (test code 2.14 10*3/uL 1.09-3.23 = 731-0) MONO x10^3 (test code 1.16 10*3/uL 0.36-1.02 H = 742-7) EOS x10^3 (test code = 0.19 10*3/uL 0.06-0.53 711-2) BASO x10^3 (test code 0.05 10*3/uL 0.01-0.09 = 704-7) Lab Interpretation Abnormal (test code = 70445-3) [facility] 10:55:00 Test Item Value Reference Range Interpretation Comments POCT GLU (test code = 4761258860) 146 mg/dL 70-110 H Lab Interpretation (test code = Abnormal 64739-0) [facility] GLUCOSE (AUTOMATED)2020-07-20 05:23:00 Test Item Value Reference Range Interpretation Comments POCT GLU (test code = 5702949505) 232 mg/dL 70-110 H Lab Interpretation (test code = Abnormal 42502-5) [facility] GLUCOSE (AUTOMATED)2020-07-20 02:37:00 Test Item Value Reference Range Interpretation Comments POCT GLU (test code = 9775401186) 284 mg/dL 70-110 H Lab Interpretation (test code = Abnormal 08741-6) [facility] GLUCOSE (AUTOMATED)2020-07-20 01:12:00 Test Item Value Reference Range Interpretation Comments POCT GLU (test code = 9090951226) 199 mg/dL 70-110 H Lab Interpretation (test code = Abnormal 68471-5) [facility] GLUCOSE (AUTOMATED)2020-07-20 00:59:00 Test Item Value Reference Range Interpretation Comments POCT GLU (test code = 2034839357) 209 mg/dL 70-110 H Lab Interpretation (test code = Abnormal 11015-0) [facility] - Draw immediately prior to the 4TH dose, but, no more than 60 minutes before the 4TH dose. 2020-07-19 22:54:00 Test Item Value Reference Range Interpretation Comments VANCO TROUGH (test code 18.5 ug/mL 10-20 = 3496830100) DOMENIC (test code = DOMENIC) Toxic Range: ?>20 ug/mL 15-20 ug/mL is recommended for severe infection or when Vancomycin MARK ANTHONY is greater than or equal to 2. Lab Interpretation (test Normal code = 30435-5) [facility] GLUCOSE (AUTOMATED)2020-07-19 20:07:00 Test Item Value Reference Range Interpretation Comments POCT GLU (test code = 6459600443) 159 mg/dL 70-110 H Lab Interpretation (test code = Abnormal 36542-1) [facility] [id number] 19:01:00 Test Item Value Reference Range Interpretation Comments Blood Culture-Aerobic No organisms No growth Previo us (test code = 78262-5) isolated prelim inary verified result was Culture In Progress on 07/14/2020 at 160 1 CSTPrevious preliminary verified result was No growth a t 24 hours on 07/15/2020 at 130 1 CSTPrevious preliminary verified result was No growth a t 48 hours on 07/16/2020 at 130 1 CSTPrevious preliminary verified result was No growth a t 72 hours on 07/17/2020 at 130 1 [employer] Blood No organisms No growth Previous Culture-Anaerobic isolated preliminar y (test code = 83534-2) verifi ed result was Culture In Progress on 07/14/2020 at 160 1 CSTPrevious preliminary verified result was No growth a t 24 hours on 07/15/2020 at 130 1 CSTPrevious preliminary verified result was No growth a t 48 hours on 07/16/2020 at 130 1 CSTPrevious preliminary verified result was No growth a t 72 hours on 07/17/2020 at 130 1 [employer] Lab Interpretation Normal (test code = 33793-5) [facility]2020-07-19 18:18:00 Test Item Value Reference Range Interpretation Comments POCT GLU (test code = 8828572897) 149 mg/dL 70-110 H Lab Interpretation (test code = Abnormal 88570-7) [facility] [id number] 17:02:00 Test Item Value Reference Range Interpretation Comments Blood Culture-Aerobic No organisms No growth Previo us (test code = 94190-4) isolated prelim inary verified result was Culture In Progress on 07/14/2020 at 140 1 CSTPrevious preliminary verified result was No growth a t 24 hours on 07/15/2020 at 110 1 CSTPrevious preliminary verified result was No growth a t 48 hours on 07/16/2020 at 110 1 CSTPrevious preliminary verified result was No growth a t 72 hours on 07/17/2020 at 110 1 [employer] Blood No organisms No growth Previous Culture-Anaerobic isolated preliminar y (test code = 00532-5) verifi ed result was Culture In Progress on 07/14/2020 at 140 1 CSTPrevious preliminary verified result was No growth a t 24 hours on 07/15/2020 at 110 1 CSTPrevious preliminary verified result was No growth a t 48 hours on 07/16/2020 at 110 1 CSTPrevious preliminary verified result was No growth a t 72 hours on 07/17/2020 at 110 1 [employer] Lab Interpretation Normal (test code = 65411-3) [facility]2020-07-19 14:35:00 Test Item Value Reference Range Interpretation Comments POCT GLU (test code = 0260583087) 136 mg/dL 70-110 H Lab Interpretation (test code = Abnormal 75632-1) [facility] METABOLIC PANEL (NA, K, CL, CO2, GLUCOSE, BUN, CREATININE, CA)2020-07-19 12:51:00 Test Item Value Reference Range Interpretation Comments NA (test code = 135 mmol/L 135-145 9368206041) K (test code = 3.6 mmol/L 3.5-5 2623574828) CL (test code = 101 mmol/L 98-108 0447468266) CO2 TOTAL (test code = 24 mmol/L 23-31 5905880862) AGAP (test code = 2-16 7089149071) BUN (test code = 11 mg/dL 7-23 4953572496) GLUCOSE (test code = 163 mg/dL 70-110 H 3027214154) CREATININE (test code = 0.77 mg/dL 0.6-1.25 3168223725) CALCIUM (test code = 8.4 mg/dL 8.6-10.6 L 8272880997) eGFR Calculation mL/min/1.73m2 (Non-) (test code = 5997090374) eGFR Calculation mL/min/1.73m2 () (test code = 1117023649) DOMENIC (test code = DOMENIC) Association of [...] tests). Lab Interpretation Abnormal (test code = 02547-4) [facility] 12:51:00 Test Item Value Reference Range Interpretation Comments MAGNESIUM (test code = 8276663911) 2.0 mg/dL 1.7-2.4 Lab Interpretation (test code = Normal 66018-1) [facility] WITH [id number] 12:48:00 Test Item Value Reference Range Interpretation Comments WBC (test code = See_Comment H [Automated 7890-2) message] The sy stem which generated this result transmitted reference range : 4.20 - 10.70 10*3/?L. The reference range was not used to interpret this result as normal/abnormal . RBC (test code = See_Comment L [Automated 589-8) message] The sy stem which generated this [...] RDW-SD (test code = 39.0 fL 38.5-51.6 59474-7) RDW-CV (test code = 12.0 % 12.1-15.4 L 788-0) PLT (test code = See_Comment H [Automated 777-3) message] The sy stem which generated this result transmitted reference range : 150 - 328 10*3/ ?L. The reference r yen was not used to interpret this result as normal/abnormal . MPV (test code = 9.8 fL 9.8-13 32540-6) NRBC/100 WBC (test See_Comment [Automat ed code = 4776757820) message] The system which generated this result transmitted reference range : 0.0 - 10.0 /100 WBCs. The refer ence range was not u sed to interpret th is result as normal/abnormal . NRBC x10^3 (test code <0.01 See_Comment [Auto mated = 1519349019) message] The s ystem which generated this result transmitted reference range : 10*3/?L. The reference range was not used to interpret this result as normal/abnormal . GRAN MAT (NEUT) % 76.8 % (test code = 770-8) IMM GRAN % (test code 0.80 % = 7445648357) LYMPH % (test code = 13.2 % 736-9) MONO % (test code = 7.5 % 5905-5) EOS % (test code = 1.4 % 713-8) BASO % (test code = 0.3 % 706-2) GRAN MAT x10^3(ANC) 8.74 10*3/uL 1.99-6.95 H (test code = 5251310684) IMM GRAN x10^3 (test 0.09 10*3/uL 0-0.06 H code = 5375935906) LYMPH x10^3 (test code 1.50 10*3/uL 1.09-3.23 = 731-0) MONO x10^3 (test code 0.85 10*3/uL 0.36-1.02 = 742-7) EOS x10^3 (test code = 0.16 10*3/uL 0.06-0.53 711-2) BASO x10^3 (test code 0.03 10*3/uL 0.01-0.09 = 704-7) Lab Interpretation Abnormal (test code = 16178-2) [facility] GLUCOSE (AUTOMATED)2020-07-19 11:23:00 Test Item Value Reference Range Interpretation Comments POCT GLU (test code = 0324080288) 166 mg/dL 70-110 H Lab Interpretation (test code = Abnormal 65655-2) [facility] GLUCOSE (AUTOMATED)2020-07-19 07:56:00 Test Item Value Reference Range Interpretation Comments POCT GLU (test code = 6184741735) 170 mg/dL 70-110 H Lab Interpretation (test code = Abnormal 14854-5) [facility] GLUCOSE (AUTOMATED)2020-07-19 03:12:00 Test Item Value Reference Range Interpretation Comments POCT GLU (test code = 5806405836) 226 mg/dL 70-110 H Lab Interpretation (test code = Abnormal 36647-7) [facility] GLUCOSE (AUTOMATED)2020-07-18 23:02:00 Test Item Value Reference Range Interpretation Comments POCT GLU (test code = 3237252225) 217 mg/dL 70-110 H Lab Interpretation (test code = Abnormal 11539-6) [facility] GLUCOSE (AUTOMATED)2020-07-18 18:44:00 Test Item Value Reference Range Interpretation Comments POCT GLU (test code = 189 mg/dL 70-110 H Notifi ed Provider [id number]) Lab Interpretation (test Abnormal code = 38451-4) [facility] - Draw immediately prior to the 4TH dose, but, no more than 60 minutes before the 4TH dose. 2020-07-18 18:14:00 Test Item Value Reference Range Interpretation Comments VANCO TROUGH (test code 12.3 ug/mL 10-20 = 8629787978) DOMENIC (test code = DOMENIC) Toxic Range: ?>20 ug/mL 15-20 ug/mL is recommended for severe infection or when Vancomycin MARK ANTHONY is greater than or equal to 2. Lab Interpretation (test Normal code = 88777-6) [facility]ASPIR[facility] OR ABSCESS CULTURE(AEROBIC/ANAEROBIC) 2020-07-18 15:34:00 Test Item Value Reference Interpretation Comments Range Aspirate or 2+ Streptococcus For suscept ibility Abscess agalactiae (Group B) results , refer to Culture (test culture # - code = [id number] 60182-4) Previous preliminary verified result was Gram-Positive C occi on 07/16/2020 at 1316 [employer] Gram stain Numerous (test code = Polymorphonuclear 664-3) leukocytes DOMENIC (test code Penicillin and = DOMENIC) ampicillin are drugs of choice for treatment of beta-hemolytic streptococcal infections. In accordance with CLSI M100 guidelines, susceptibility testing of penicillin and other beta-lactams need not be performed due to the extremely rare nature of non-susceptible isolates. [facility] GLUCOSE (AUTOMATED)2020-07-18 14:15:00 Test Item Value Reference Range Interpretation Comments POCT GLU (test code = 174 mg/dL 70-110 H Notifi ed Provider [id number]) Lab Interpretation (test Abnormal code = 63286-8) [facility] (NA, K, CL, CO2, GLUCOSE, BUN, CREATININE, CA)2020-07-18 11:13:00 Test Item Value Reference Range Interpretation Comments NA (test code = 134 mmol/L 135-145 L 5692358663) K (test code = 3.8 mmol/L 3.5-5 2333126598) CL (test code = 102 mmol/L 98-108 5390559469) CO2 TOTAL (test code = 26 mmol/L 23-31 4757641505) AGAP (test code = 2-16 5525839058) BUN (test code = 9 mg/dL 7-23 1515811293) GLUCOSE (test code = 191 mg/dL 70-110 H 0967305859) CREATININE (test code = 0.71 mg/dL 0.6-1.25 2471477590) CALCIUM (test code = 8.0 mg/dL 8.6-10.6 L 3017234444) eGFR Calculation mL/min/1.73m2 (Non-) (test code = 2042807752) eGFR Calculation mL/min/1.73m2 () (test code = 8266954092) DOMENIC (test code = DOMENIC) Association of [...] tests). Lab Interpretation Abnormal (test code = 76256-3) [facility] 11:13:00 Test Item Value Reference Range Interpretation Comments MAGNESIUM (test code = 4508147425) 2.0 mg/dL 1.7-2.4 Lab Interpretation (test code = Normal 85758-0) [facility] WITH [id number] 10:44:00 Test Item Value Reference Range Interpretation Comments WBC (test code = See_Comment H [Automated 9852-2) message] The system which generated this result transmit rony reference range : 4.20 - 10.70 10*3/?L. The reference range was not used to interpret this result as normal/abnormal . RBC (test code = See_Comment L [Automated 400-8) message] The system which generated this result [...] (test code = 38.4 fL 38.5-51.6 L 78312-7) RDW-CV (test code = 11.9 % 12.1-15.4 L 788-0) PLT (test code = See_Comment H [Automated 777-3) message] The system which generated this result transmit rony reference range : 150 - 328 10*3/ ?L. The reference range was not u sed to interpret th is result as normal/abnormal . MPV (test code = 9.5 fL 9.8-13 L 26797-6) NRBC/100 WBC (test See_Comment [Automat ed code = 8442658018) message] The system which generated this result transmit rony reference range : 0.0 - 10.0 /100 WBCs. The reference range was not used to interpret this result as normal/abnormal . NRBC x10^3 (test code <0.01 See_Comment [Auto mated = 2712068912) message] The system which generated this result transmit rony reference range : 10*3/?L. The reference range was not used to interpret this result as normal/abnormal . GRAN MAT (NEUT) % 83.1 % (test code = 770-8) IMM GRAN % (test code 0.80 % = 9509701927) LYMPH % (test code = 9.0 % 736-9) MONO % (test code = 6.1 % 5905-5) EOS % (test code = 0.7 % 713-8) BASO % (test code = 0.3 % 706-2) GRAN MAT x10^3(ANC) 13.14 10*3/uL 1.99-6.95 H (test code = 2402319297) IMM GRAN x10^3 (test 0.13 10*3/uL 0-0.06 H code = 3447797052) LYMPH x10^3 (test code 1.43 10*3/uL 1.09-3.23 = 731-0) MONO x10^3 (test code 0.97 10*3/uL 0.36-1.02 = 742-7) EOS x10^3 (test code = 0.11 10*3/uL 0.06-0.53 711-2) BASO x10^3 (test code 0.04 10*3/uL 0.01-0.09 = 704-7) Lab Interpretation Abnormal (test code = 23921-2) [facility] GLUCOSE (AUTOMATED)2020-07-18 10:30:00 Test Item Value Reference Range Interpretation Comments POCT GLU (test code = 4643858249) 188 mg/dL 70-110 H Lab Interpretation (test code = Abnormal 45469-8) [facility] GLUCOSE (AUTOMATED)2020-07-18 06:02:00 Test Item Value Reference Range Interpretation Comments POCT GLU (test code = 3233114212) 199 mg/dL 70-110 H Lab Interpretation (test code = Abnormal 37948-0) [facility] GLUCOSE (AUTOMATED)2020-07-18 01:49:00 Test Item Value Reference Range Interpretation Comments POCT GLU (test code = 4751832501) 222 mg/dL 70-110 H Lab Interpretation (test code = Abnormal 13915-0) [facility] GLUCOSE (AUTOMATED)2020-07-17 22:59:00 Test Item Value Reference Range Interpretation Comments POCT GLU (test code = 4602278856) 229 mg/dL 70-110 H Lab Interpretation (test code = Abnormal 32317-5) [facility] GLUCOSE (AUTOMATED)2020-07-17 21:42:00 Test Item Value Reference Range Interpretation Comments POCT GLU (test code = 0348901300) 218 mg/dL 70-110 H Lab Interpretation (test code = Abnormal 47546-9) [facility] GLUCOSE (AUTOMATED)2020-07-17 18:11:00 Test Item Value Reference Range Interpretation Comments POCT GLU (test code = 9250146343) 164 mg/dL 70-110 H Lab Interpretation (test code = Abnormal 79589-4) [facility] GLUCOSE (AUTOMATED)2020-07-17 13:22:00 Test Item Value Reference Range Interpretation Comments POCT GLU (test code = 3964948194) 125 mg/dL 70-110 H Lab Interpretation (test code = Abnormal 04360-0) [facility] METABOLIC PANEL (NA, K, CL, CO2, GLUCOSE, BUN, CREATININE, CA)2020-07-17 12:08:00 Test Item Value Reference Range Interpretation Comments NA (test code = 132 mmol/L 135-145 L 2446677660) K (test code = 3.8 mmol/L 3.5-5 2942908963) CL (test code = 101 mmol/L 98-108 5054760216) CO2 TOTAL (test code = 24 mmol/L 23-31 0286538087) AGAP (test code = 2-16 4691284020) BUN (test code = 11 mg/dL 7-23 9441978948) GLUCOSE (test code = 145 mg/dL 70-110 H 0295640276) CREATININE (test code = 0.76 mg/dL 0.6-1.25 8166012987) CALCIUM (test code = 8.2 mg/dL 8.6-10.6 L 7556708333) eGFR Calculation mL/min/1.73m2 (Non-) (test code = 1536598272) eGFR Calculation mL/min/1.73m2 () (test code = 9476368030) DOMENIC (test code = DOMENIC) Association of [...] tests). Lab Interpretation Abnormal (test code = 35087-4) [facility] 12:08:00 Test Item Value Reference Range Interpretation Comments MAGNESIUM (test code = 0048053541) 2.0 mg/dL 1.7-2.4 Lab Interpretation (test code = Normal 30857-6) [facility] WITH [id number] 11:49:00 Test Item Value Reference Range Interpretation [...] (test code = 38.4 fL 38.5-51.6 L 68233-3) RDW-CV (test code = 11.9 % 12.1-15.4 L 788-0) PLT (test code = See_Comment H [Automated 777-3) message] The system which generated this result transmit rony reference range : 150 - 328 10*3/ ?L. The reference range was not u sed to interpret th is result as normal/abnormal . MPV (test code = 9.9 fL 9.8-13 44260-4) NRBC/100 WBC (test See_Comment [Automat ed code = 0160627638) message] The system which generated this result transmit rony reference range : 0.0 - 10.0 /100 WBCs. The reference range was not used to interpret this result as normal/abnormal . NRBC x10^3 (test code <0.01 See_Comment [Auto mated = 9378406457) message] The system which generated this result transmit rony reference range : 10*3/?L. The reference range was not used to interpret this result as normal/abnormal . GRAN MAT (NEUT) % 83.0 % (test code = 770-8) IMM GRAN % (test code 0.80 % = 8378023759) LYMPH % (test code = 10.4 % 736-9) MONO % (test code = 5.3 % 5905-5) EOS % (test code = 0.3 % 713-8) BASO % (test code = 0.2 % 706-2) GRAN MAT x10^3(ANC) 14.22 10*3/uL 1.99-6.95 H (test code = 6046032606) IMM GRAN x10^3 (test 0.14 10*3/uL 0-0.06 H code = 1973308745) LYMPH x10^3 (test code 1.78 10*3/uL 1.09-3.23 = 731-0) MONO x10^3 (test code 0.91 10*3/uL 0.36-1.02 = 742-7) EOS x10^3 (test code = 0.06 10*3/uL 0.06-0.53 711-2) BASO x10^3 (test code 0.04 10*3/uL 0.01-0.09 = 704-7) Lab Interpretation Abnormal (test code = 50891-7) [facility] GLUCOSE (AUTOMATED)2020-07-17 10:20:00 Test Item Value Reference Range Interpretation Comments POCT GLU (test code = 7957528248) 131 mg/dL 70-110 H Lab Interpretation (test code = Abnormal 01883-2) [facility] GLUCOSE (AUTOMATED)2020-07-17 06:05:00 Test Item Value Reference Range Interpretation Comments POCT GLU (test code = 5806175616) 157 mg/dL 70-110 H Lab Interpretation (test code = Abnormal 62272-2) [facility] GLUCOSE (AUTOMATED)2020-07-17 02:20:00 Test Item Value Reference Range Interpretation Comments POCT GLU (test code = 6273089036) 208 mg/dL 70-110 H Lab Interpretation (test code = Abnormal 98898-1) [facility] GLUCOSE (AUTOMATED)2020-07-16 22:55:00 Test Item Value Reference Range Interpretation Comments POCT GLU (test code = 8057305888) 221 mg/dL 70-110 H Lab Interpretation (test code = Abnormal 22541-9) [facility] [id number] 21:27:00COVID DMT InterpretationInterpretation/Recommendations: Molecular NAAT Tests for [...] COVID-19 testing the patient has had at [facility], including molecular NAAT testing (more commonly known as PCR testing and Rapid ID Now testing) and antibody testing. It doesnot take into account any testing that a patient has had outside of the [facility] medical record. [facility] LABORATORY SERVICESCOVID JwfiqbvMIOL-LwK-1 Rapid ID NOW (no units) ? ? Date ? Value ? 07/14/2020 ? Not Detected ? [facility] T[facility] Level - Draw within 30 minutes prior to 4TH dose.2020-07-16 21:20:00 Test Item Value Reference Range Interpretation Comments VANCO TROUGH (test code 8.2 ug/mL 10-20 L = 6236223278) DOMENIC (test code = DOMENIC) Toxic Range: ?>20 ug/mL 15-20 ug/mL is recommended for severe infection or when Vancomycin MARK ANTHONY is greater than or equal to 2. Lab Interpretation (test Abnormal code = 71628-0) [facility] GLUCOSE (AUTOMATED)2020-07-16 18:59:00 Test Item Value Reference Range Interpretation Comments POCT GLU (test code = 4603227070) 217 mg/dL 70-110 H Lab Interpretation (test code = Abnormal 29710-5) [facility] GLUCOSE (AUTOMATED)2020-07-16 15:15:00 Test Item Value Reference Range Interpretation Comments POCT GLU (test code = 9346003247) 125 mg/dL 70-110 H Lab Interpretation (test code = Abnormal 09493-1) [facility] WITH [id number] 11:41:00 Test Item Value Reference Range Interpretation [...] RDW-SD (test code = 39.3 fL 38.5-51.6 53226-5) RDW-CV (test code = 12.1 % 12.1-15.4 788-0) PLT (test code = See_Comment H [Automated 777-3) message] The system which generated this result transmit rony reference range : 150 - 328 10*3/ ?L. The reference range was not u sed to interpret th is result as normal/abnormal . MPV (test code = 9.7 fL 9.8-13 L 68938-9) NRBC/100 WBC (test See_Comment [Automat ed code = 5282693139) message] The system which generated this result transmit rony reference range : 0.0 - 10.0 /100 WBCs. The reference range was not used to interpret this result as normal/abnormal . NRBC x10^3 (test code <0.01 See_Comment [Auto mated = 0537023579) message] The system which generated this result transmit rony reference range : 10*3/?L. The reference range was not used to interpret this result as normal/abnormal . GRAN MAT (NEUT) % 82.1 % (test code = 770-8) IMM GRAN % (test code 0.60 % = 0654921985) LYMPH % (test code = 10.8 % 736-9) MONO % (test code = 6.1 % 5905-5) EOS % (test code = 0.2 % 713-8) BASO % (test code = 0.2 % 706-2) GRAN MAT x10^3(ANC) 15.69 10*3/uL 1.99-6.95 H (test code = 0528582888) IMM GRAN x10^3 (test 0.11 10*3/uL 0-0.06 H code = 3420027769) LYMPH x10^3 (test code 2.07 10*3/uL 1.09-3.23 = 731-0) MONO x10^3 (test code 1.17 10*3/uL 0.36-1.02 H = 742-7) EOS x10^3 (test code = 0.04 10*3/uL 0.06-0.53 L 711-2) BASO x10^3 (test code 0.04 10*3/uL 0.01-0.09 = 704-7) BANDS (test code = Increased A 5374238041) Lab Interpretation Abnormal (test code = 48890-9) [facility] METABOLIC PANEL (NA, K, CL, CO2, GLUCOSE, BUN, CREATININE, CA)2020-07-16 11:41:00 Test Item Value Reference Range Interpretation Comments NA (test code = 131 mmol/L 135-145 L 7027086040) K (test code = 4.0 mmol/L 3.5-5 7088515812) CL (test code = 99 mmol/L 98-108 8123948690) CO2 TOTAL (test code = 22 mmol/L 23-31 L 1931536306) AGAP (test code = 2-16 8397582696) BUN (test code = 14 mg/dL 7-23 3149479091) GLUCOSE (test code = 147 mg/dL 70-110 H 6304283945) CREATININE (test code = 0.81 mg/dL 0.6-1.25 8487078794) CALCIUM (test code = 8.5 mg/dL 8.6-10.6 L 5394397408) eGFR Calculation mL/min/1.73m2 (Non-) (test code = 0447772617) eGFR Calculation mL/min/1.73m2 () (test code = 9889832507) DOMENIC (test code = DOMENIC) Association of [...] tests). Lab Interpretation Abnormal (test code = 84960-3) [facility] Test Item Value Reference Range Interpretation Comments MAGNESIUM (test code = 3420120332) 2.1 mg/dL 1.7-2.4 Lab Interpretation (test code = Normal 70174-6) [facility] GLUCOSE (AUTOMATED)2020-07-16 10:04:00 Test Item Value Reference Range Interpretation Comments POCT GLU (test code = 8770662840) 140 mg/dL 70-110 H Lab Interpretation (test code = Abnormal 26906-9) [facility] GLUCOSE (AUTOMATED)2020-07-16 06:29:00 Test Item Value Reference Range Interpretation Comments POCT GLU (test code = 9794116318) 178 mg/dL 70-110 H Lab Interpretation (test code = Abnormal 99060-1) [facility] GLUCOSE (AUTOMATED)2020-07-16 02:13:00 Test Item Value Reference Range Interpretation Comments POCT GLU (test code = 4323135272) 214 mg/dL 70-110 H Lab Interpretation (test code = Abnormal 54159-2) [facility] GLUCOSE (AUTOMATED)2020-07-15 23:47:00 Test Item Value Reference Range Interpretation Comments POCT GLU (test code = 3775578750) 161 mg/dL 70-110 H Lab Interpretation (test code = Abnormal 20373-1) [facility] GLUCOSE (AUTOMATED)2020-07-15 19:55:00 Test Item Value Reference Range Interpretation Comments POCT GLU (test code = 1794099413) 138 mg/dL 70-110 H Lab Interpretation (test code = Abnormal 68797-4) [facility] [id number] 18:59:00 Test Item Value Reference Range Interpretation Comments CRP (test code = 7539205031) 35.7 mg/dL <0.8 H Lab Interpretation (test code = Abnormal 88807-2) [facility] GLUCOSE (AUTOMATED)2020-07-15 18:10:00 Test Item Value Reference Range Interpretation Comments POCT GLU (test code = 9324119766) 156 mg/dL 70-110 H Lab Interpretation (test code = Abnormal 12235-7) [facility]+ VW [id number] 16:47:54 1. ?No fracture or foreign body. There is extensive soft tissue gaspredominantly in the plantar forefoot. RL: 1105 HISTORY: ?left foot puncture wound Left foot puncture wound COMPARISON: ?None FINDINGS: 3 views left foot and ankle. There is extensive soft tissue gas. The gas predominantly in the plantarsurface of the foot. No fracture or foreign body seen. [facility], Radiant Results Inft User - 07/15/2020 10:49 AM CSTHISTORY: left foot puncturewound Left foot puncture woundCOMPARISON: NoneFINDINGS:3 views left foot and ankle.There is extensive soft tissue gas. The gas predominantly in the plantarsurface of the foot. No fracture or foreign body seen.IMPRESSION1. No fracture or foreign body. There is extensive soft tissue gaspredominantly in the plantar forefoot.RL: 1105 [facility] VW [id number] 16:47:54 1. ?No fracture or foreign body. There is extensive soft tissue gaspredominantly in the plantar forefoot. RL: 1105 HISTORY: ?left foot puncture wound Left foot puncture wound COMPARISON: ?None FINDINGS: 3 views left foot and ankle. There is extensive soft tissue gas. The gas predominantly in the plantarsurface of the foot. No fracture or foreign body seen. [facility], Radiant Results Inft User - 07/15/2020 10:49 AM CSTHISTORY: left foot puncturewound Left foot puncture woundCOMPARISON: NoneFINDINGS:3 views left foot and ankle.There is extensive soft tissue gas. The gas predominantly in the plantarsurface of the foot. No fracture or foreign body seen.IMPRESSION1. No fracture or foreign body. There is extensive soft tissue gaspredominantly in the plantar forefoot.RL: 1105 [facility] W [id number] 16:02:25 Moderate to severe secondary osteoarthrosis of the knee. Large volume knee effusion with synovial thickening, an underlyingcrystalline/inflammatory arthropathy may be present and should becorrelated clinically. An indolent infectious process is an alternativeconsideration. No evidence of osteomyelitis or soft tissue gas extension in the lower leg. Preliminary Report Dictated by Resident: Deepa Cason I, Brandan Chua MD., have reviewed this study and agree with the abovereport.Exam: CT TIBIA FIBULA LEFT W CONTRAST HISTORY: concern for nec fasc vs cellulitis COMPARISON: None TECHNIQUE: Axial CT imaging through the left tibia and fibula was performedwithout IV contrast. Coronal and sagittal reform ats were obtained andreviewed. Separate 3-D reconstructions are submitted for evaluation. FINDINGS: There is moderate to severe tricompartmental joint space narrowing,marginal osteophytosis and subchondral sclerosis of knee joint;jkjw-ri-rjca contact at the medial compartment is seen with genu varusdef ormity. Corticated osseous bodies are seen over the anteromedial andanterolateral joint line. Hypertrophy of the tibial spines is present alongwith a Garcia knob. Scattered subcentimeter bone islands are seen at theposterior lateral femoral condyle. There is large volume joint effusionwith extensive synovial hypertrophy. A loculated component of the effusionis seen over the anteromedial joint line. Scattered vascular calcifications are present more pronounced in the smallvessels of the foot. Posterior calcaneal enthesophyte is seen. Skinthickening with mild subcutaneous edema is noted around the ankle morediscernible in the posterolateral surface. No evidence of focal bonedestruction/osteopenia, periosteal reaction. [facility], Radiant Results Inft User - 07/15/2020 10:03 AM CSTExam: CT TIBIA FIBULA LEFT W CONTRASTHISTORY: concern for nec fasc vs cellulitisCOMPARISON: NoneTECHNIQUE: Axial CT imaging t hrough the left tibia and fibula was performedwithout IV contrast. Coronal and sagittal reformats were obtained andreviewed. Separate 3-D reconstructions are submitted for evaluation.FINDINGS:There is moderate to severe tricompartmental joint space narrowing,marginal osteophytosis and subchondral sclerosis of knee joint;pqnz-cd-phwu contact at the medial compartment is seen [...] posterolateral surface. No evidence of focal bonedestruction/osteopenia, periostealreaction. IMPRESSIONModerate to severe secondary osteoarthrosis of the knee. Large volume knee effusion with synovial thickening, an underlyingcrystalline/inflammatory arthropathy may be present and should becorrelated clinically. An indolent infectious process is an alternativeconsideration.No evidence of osteomyelitis or soft tissue gas extension in the lower leg.Preliminary Report Dictated by Resident: Brandan Lawson MD., have reviewed this study and agree with the abovereport.[facility] [id number] 15:56:03 Plantar skin defect with extensive soft tissue gas extending into the deepplantar fascial planes which may relate to extension of gas through theplantar forefoot skin defect and/or superimposed gas-forming infection. Findings of the report were telephonically conveyed to Dr. Dickerson withread back at 9:05 AM (07/15/2020). Preliminary Report Dictated by Resident: Brandan Kenney MD., have reviewed this study and agree [...] level of the plantarlateral first MTP joint level.Soft tissue gas extends into the plantarforefoot musculature with interdigitation of gas through thefirstintermetatarsal space with gas tracking more proximally within the secondmetatarsal extensor tendon to the level of the midfoot. ?There ishyperdense collection measuring 2.1 cm below the third andthe fourth MTPjoint may represent hypertrophic scar or adventitial bursa formation. Thereis extensive soft tissue stranding, skin thickening at the plantar footextending up to the mid ankle. No bone destruction or periosteal reactionseen. No acute fracture or dislocation. Mild joint space narrowing andsubchondral sclerosis at the intertarsal joints. [facility], Radiant Results Inft User - 07/15/2020 9:57 AM CSTExam: CT FOOT LEFT W CONTRASTHISTORY: concern for necrotizing fascitis vs cellulitis and abscessof footCOMPARISON: NoneTECHNIQUE: Axial CT imaging through the [...] to the level of the midfoot. There ishyperdense collection measuring 2.1 cm below the [...] tissue gas extending into the deepplantar fascial planeswhich may relate to extension of gas through theplantar forefoot skin defect and/or superimposed gas-forming infection.Findings of the report were telephonically conveyed to Dr. Dickerson withread back at 9:05 AM (07/15/2020).Preliminary Report Dictated by Resident: Deepa Shetty, Brandan Chua MD., have reviewed this study and agree with the abovereport.[facility] (NA, K, CL, CO2, GLUCOSE, BUN, CREATININE, CA)2020-07-15 14:52:00 Test Item Value Reference Range Interpretation Comments NA (test code = 131 mmol/L 135-145 L 8310927658) K (test code = 4.1 mmol/L 3.5-5 8639557499) CL (test code = 98 mmol/L 98-108 0994625830) CO2 TOTAL (test code = 20 mmol/L 23-31 L 6820136395) AGAP (test code = 2-16 1628508618) BUN (test code = 14 mg/dL 7-23 3429396178) GLUCOSE (test code = 172 mg/dL 70-110 H 2822021553) CREATININE (test code = 0.82 mg/dL 0.6-1.25 6348905809) CALCIUM (test code = 8.9 mg/dL 8.6-10.6 2599585234) eGFR Calculation mL/min/1.73m2 (Non-) (test code = 8880296772) eGFR Calculation mL/min/1.73m2 () (test code = 0121045464) DOMENIC (test code = DOMENIC) Association of [...] tests). Lab Interpretation Abnormal (test code = 88565-0) [facility] 14:52:00 Test Item Value Reference Range Interpretation Comments MAGNESIUM (test code = 6317369523) 2.2 mg/dL 1.7-2.4 Lab Interpretation (test code = Normal 37941-5) [facility] HospitalLipid [facility] (Total Cholesterol, Triglycerides, HDL) - [id number] 14:52:00 Test Item Value Reference Range Interpretation Comments CHOL (test code = 153 mg/dL 120-200 2758292902) HDL (test code = 14 mg/dL >40 L 4863689869) HDLC RATIO (test code = See_Comment H [Au tomated message] 9871868415) The system [employer] generated this result transmit rony reference range : <=5.0. The refe rence range was not u sed to interpret th is result as normal/abnormal . TRIG (test code = 140 mg/dL 30-170 7219377377) LDL CHOL (test code = 111 mg/dL See_Comment [Auto mated message] 23325-6) The system [employer] generated this result transmit rony reference range : <=160. The refe rence range was not u sed to interpret th is result as normal/abnormal . VLDL (test code = 28 mg/dL 5-60 3956517359) Lab Interpretation (test Abnormal code = 56606-2) [facility])2020-07-15 14:26:00 Test Item Value Reference Range Interpretation Comments POCT GLU (test code = 7941003753) 171 mg/dL 70-110 H Lab Interpretation (test code = Abnormal 43532-7) [facility] WITH [id number] 11:51:00 Test Item Value Reference Range Interpretation [...] (test code = 38.3 fL 38.5-51.6 L 56852-0) RDW-CV (test code = 11.8 % 12.1-15.4 L 788-0) PLT (test code = See_Comment H [Automated 777-3) message] The system which generated this result transmit rony reference range : 150 - 328 10*3/ ?L. The reference range was not u sed to interpret th is result as normal/abnormal . MPV (test code = 10.4 fL 9.8-13 10241-6) NRBC/100 WBC (test See_Comment [Automat ed code = 0704278649) message] The system which generated this result transmit rony reference range : 0.0 - 10.0 /100 WBCs. The reference range was not used to interpret this result as normal/abnormal . NRBC x10^3 (test code <0.01 See_Comment [Auto mated = 1004841556) message] The system which generated this result transmit rony reference range : 10*3/?L. The reference range was not used to interpret this result as normal/abnormal . GRAN MAT (NEUT) % 79.7 % (test code = 770-8) IMM GRAN % (test code 0.60 % = 6893450570) LYMPH % (test code = 12.1 % 736-9) MONO % (test code = 6.9 % 5905-5) EOS % (test code = 0.4 % 713-8) BASO % (test code = 0.3 % 706-2) GRAN MAT x10^3(ANC) 11.56 10*3/uL 1.99-6.95 H (test code = 6502353151) IMM GRAN x10^3 (test 0.08 10*3/uL 0-0.06 H code = 2311315271) LYMPH x10^3 (test code 1.76 10*3/uL 1.09-3.23 = 731-0) MONO x10^3 (test code 1.00 10*3/uL 0.36-1.02 = 742-7) EOS x10^3 (test code = 0.06 10*3/uL 0.06-0.53 711-2) BASO x10^3 (test code 0.04 10*3/uL 0.01-0.09 = 704-7) Lab Interpretation Abnormal (test code = 62252-8) [facility] GLUCOSE (AUTOMATED)2020-07-15 10:33:00 Test Item Value Reference Range Interpretation Comments POCT GLU (test code = 1549970960) 163 mg/dL 70-110 H Lab Interpretation (test code = Abnormal 52486-7) [facility] GLUCOSE (AUTOMATED)2020-07-15 06:34:00 Test Item Value Reference Range Interpretation Comments POCT GLU (test code = 5458448129) 257 mg/dL 70-110 H Lab Interpretation (test code = Abnormal 01678-4) [facility] GLUCOSE (AUTOMATED)2020-07-15 02:51:00 Test Item Value Reference Range Interpretation Comments POCT GLU (test code = 7444576297) 305 mg/dL 70-110 H Lab Interpretation (test code = Abnormal 50055-9) [facility] HospitalSED[facility] [id number] 02:15:00 Test Item Value Reference Range Interpretation Comments ESR (test code = See_Comment H [Automated message] 6030156645) The system [employer] generated this result transmitted ref erence range: 0 - 10 m m/HR. The reference r yen was not used to interpret this result as normal/abnor mal. Lab Interpretation (test Abnormal code = 30976-0) [facility] HospitalGLYCOSYLATED HEMOGLOBIN (A1C)2020-07-15 00:52:00 Test Item Value Reference Range Interpretation Comments HGB A1C (test code = 13.2 % 4-6 H 4548-4) DOMENIC (test code = DOMENIC) %A1C (NGSP) Interpretation (ADA)4.8-5.6 ? ? Normal or (Non-Diabetic Range)5.7-6.4 ? ? Increased Risk (Pre-Diabetic)>6.5 ?Diabetes Indicated Lab Interpretation Abnormal (test code = 10557-7) [facility] GLUCOSE (AUTOMATED)2020-07-14 23:45:00 Test Item Value Reference Range Interpretation Comments POCT GLU (test code = 1015314264) 190 mg/dL 70-110 H Lab Interpretation (test code = Abnormal 02297-2) [facility]OVID[facility] (ID NOW RAPID TESTING)2020-07-14 16:54:00 Test Item Value Reference Range Interpretation Comments SARS-CoV-2 Rapid ID NOW Not Detected Not Detected (test code = 76933-7) DOMENIC (test code = DOMENIC) ID NOW COVID-19 Assay is an isothermal nucleic acid amplification test intended for the qualitative detection of nucleic acid from SARS-CoV-2 viral RNA in nasopharyngeal (CASE MONITOR) specimens. It is used under Emergency Use [...] indicated. Lab Interpretation Normal (test code = 18252-7) [facility] METABOLIC PANEL (NA, K, CL, CO2, GLUCOSE, BUN, CREATININE, CA)2020-07-14 16:53:00 Test Item Value Reference Range Interpretation Comments NA (test code = 131 mmol/L 135-145 L 2670085975) K (test code = 4.4 mmol/L 3.5-5 3135199023) CL (test code = 96 mmol/L 98-108 L 8900919942) CO2 TOTAL (test code = 21 mmol/L 23-31 L 9335929990) AGAP (test code = 2-16 8304537825) BUN (test code = 16 mg/dL 7-23 5740832598) GLUCOSE (test code = 252 mg/dL 70-110 H 4318329477) CREATININE (test code = 0.91 mg/dL 0.6-1.25 1808304859) CALCIUM (test code = 9.0 mg/dL 8.6-10.6 6237574987) eGFR Calculation mL/min/1.73m2 (Non-) (test code = 5810753247) eGFR Calculation mL/min/1.73m2 () (test code = 1148995038) DOMENIC (test code = DOMENIC) Association of [...] tests). Lab Interpretation Abnormal (test code = 25615-4) [facility] WITH [id number] 16:42:00 Test Item Value Reference Range Interpretation Comments WBC (test code = See_Comment H [Automated 5484-2) message] The system which generated this result transmit rony reference range : 4.20 - 10.70 10*3/?L. The reference range was not used to interpret this result as normal/abnormal . RBC (test code = See_Comment L [Automated 659-8) message] The system which generated this result [...] (test code = 37.9 fL 38.5-51.6 L 75033-0) RDW-CV (test code = 11.8 % 12.1-15.4 L 788-0) PLT (test code = See_Comment H [Automated 777-3) message] The system which generated this result transmit rony reference range : 150 - 328 10*3/ ?L. The reference range was not u sed to interpret th is result as normal/abnormal . MPV (test code = 9.9 fL 9.8-13 42135-9) NRBC/100 WBC (test See_Comment [Automat ed code = 3643412762) message] The system which generated this result transmit rony reference range : 0.0 - 10.0 /100 WBCs. The reference range was not used to interpret this result as normal/abnormal . NRBC x10^3 (test code <0.01 See_Comment [Auto mated = 5635079616) message] The system which generated this result transmit rony reference range : 10*3/?L. The reference range was not used to interpret this result as normal/abnormal . GRAN MAT (NEUT) % 82.4 % (test code = 770-8) IMM GRAN % (test code 0.90 % = 8640196475) LYMPH % (test code = 10.6 % 736-9) MONO % (test code = 5.7 % 5905-5) EOS % (test code = 0.2 % 713-8) BASO % (test code = 0.2 % 706-2) GRAN MAT x10^3(ANC) 13.88 10*3/uL 1.99-6.95 H (test code = 2727282541) IMM GRAN x10^3 (test 0.16 10*3/uL 0-0.06 H code = 0579977838) LYMPH x10^3 (test code 1.79 10*3/uL 1.09-3.23 = 731-0) MONO x10^3 (test code 0.96 10*3/uL 0.36-1.02 = 742-7) EOS x10^3 (test code = 0.03 10*3/uL 0.06-0.53 L 711-2) BASO x10^3 (test code 0.04 10*3/uL 0.01-0.09 = 704-7) Lab Interpretation Abnormal (test code = 75338-6) [facility] HospitalL[facility] Whole [id number] 16:32:00 Test Item Value Reference Range Interpretation Comments LACTIC ACID (test code = 1.76 mmol/L 0.5-2.2 5393857652) Lab Interpretation (test code = Normal 33710-4) [facility]"
[2022-10-11 18:22] LABS: Absolute Lymphocytes (CBC) 1.8 K/uL (0.7-4.9); Hematocrit 30.8 % (39.6-49.0); Lymphocytes % 21.4 % (15.3-44.8); MCV 88.6 fL (80-100); MPV 7.5 fL (7.6-11.3); RBC Red Blood Cell Count 3.48 M/uL (4.33-5.43)
[2022-10-11 18:26] LABS: Protime INR 1.16
[2022-10-11 18:40] LABS: Albumin 2.9 g/dL (3.4-5.0); Bilirubin Total 0.6 mg/dL (0.2-1.0); Protein, Total 7.9 g/dL (6.4-8.2)
--- NOTE | 2022-10-11 19:17 | RAD REPORT ---
EXAM DESCRIPTION: RAD - Chest Single View - 10/11/2022 6:44 pm CLINICAL HISTORY: right leg swelling Chest pain. COMPARISON: Chest Single View dated 10/23/2021; Chest Single View dated 12/07/2018; Chest Single View dated 01/22/2018; Chest Single View dated 03/05/2017 FINDINGS: Portable technique limits examination quality. The lungs are grossly clear. The heart is normal in size. No displaced fractures. IMPRESSION: No acute intrathoracic process suspected.
--- NOTE | 2022-10-11 20:13 | RAD REPORT ---
EXAM DESCRIPTION: RAD - Foot Right 3 View - 10/11/2022 7:50 pm CLINICAL HISTORY: PAIN COMPARISON: Foot Right 3 View dated 09/29/2022; Foot Right Wo Cont dated 03/05/2018 FINDINGS: Great toe amputation is seen. Small soft tissue ulceration is along the ball of the foot a t the level of the great toe. Small calcaneal spurs. No radiographic evidence of osteomyelitis.
--- NOTE | 2022-10-11 20:27 | RAD REPORT ---
EXAM DESCRIPTION: US - Extremity Venous Uni Ltd - 10/11/2022 8:15 pm CLINICAL HISTORY: Pain;Swelling Leg swelling and edema. COMPARISON: <Comparisons> FINDINGS: Right lower extremity venous system was interrogated with Doppler technique. Normal flow, compressibility and augmentation was noted. There is no DVT present.Prominent 3 cm right groin lymph node. IMPRESSION: No evidence of right extremity deep venous thrombosis. Nonspecific 3 cm enlarged right groin lymph node.
--- NOTE | 2022-10-11 20:36 | RAD REPORT ---
EXAM DESCRIPTION: US - Lower Extremity Artery Uni Ltd - 10/11/2022 8:15 pm CLINICAL HISTORY: PAIN COMPARISON: <Comparisons> FINDINGS: Right lower extremity arterial system demonstrates triphasic waveforms to the level of the popliteal. The right posterior tibial and dorsalis pedis artery are monophasic. No occlusion. IMPRESSION: Monophasic right posterior tibial and dorsalis pedis indicates nykd-yf-hxemjvhh peripher al vascular disease infrapopliteal level.
--- NOTE | 2022-10-11 20:49 | ER ---
Nurse's Notes [facility] Name: Maik Stock Age: 46 yrs Sex: Male : 1975 Arrival Date: 10/11/2022 Time: 17:35 Bed 14 Private MD: Salazar Robles E Diagnosis: Cellulitis of right lower limb;Diabetes mellitus due to underlying condition with hyperglycemia Presentation: 10/11 17:45 Chief complaint: Patient states: right leg cellulitis, completed cephalexin x 10 days aa5 yesterday without improvement and was advised by his doctor to come here for IV antibiotics. 17:45 Coronavirus screen: At this time, the client does not indicate any symptoms associated aa5 with coronavirus-19. Ebola Screen: Patient denies travel to an Ebola-affected area in the 21 days before illness onset. Initial Sepsis Screen: Does the patient meet any 2 criteria? No. Patient's initial sepsis screen is negative. Does the patient have a suspected source of infection? No. Patient's initial sepsis screen is negative. Risk Assessment: Do you want to hurt yourself or someone else? Patient reports no desire to harm self or others. Onset of symptoms was October 2022. 17:45 Acuity: JACQUE 3 aa5 17:45 Method Of Arrival: Ambulatory aa5 Triage Assessment: 18:40 General: Appears in no apparent distress. Behavior is calm, cooperative, appropriate bp for age. Pain: Complains of pain in right leg. EENT: No deficits noted. Neuro: No deficits noted. Cardiovascular: No deficits noted. Respiratory: No deficits noted. GI: No signs and/or symptoms were reported involving the gastrointestinal system. : No signs and/or symptoms were reported regarding the genitourinary system. Derm: RLE INDURATION AND ERYTHEMA. Musculoskeletal: No deficits noted. Historical: - Allergies: 17:51 No Known Allergies; aa5 - PMHx: 17:51 Diabetes - NIDDM; Hypertensive disorder; aa5 - PSHx: 17:51 toe amputation; aa5 - Immunization history:: Adult Immunizations unknown. - Social history:: Smoking status: Patient denies any tobacco usage or history of. Screenin:41 [facility] ED Fall Risk Assessment (Adult) History of falling in the last 3 months, bp including since admission No falls in past 3 months (0 pts). Abuse screen: Denies threats or abuse. Denies injuries from another. Nutritional screening: No deficits noted. Tuberculosis screening: No symptoms or risk factors identified. Assessment: 18:41 General: SEE TRIAGE NOTE. bp 19:30 General: Appears comfortable, Behavior is calm, cooperative. Pain: Complains of pain in ha1 right leg Pain does not radiate. Pain currently is 4 out of 10 on a pain scale. Quality of pain is described as stinging. Neuro: Level of Consciousness is awake, alert, obeys commands, Oriented to person, place, time, situation. Cardiovascular: Capillary refill < 3 seconds Patient's skin is warm and dry. Respiratory: Airway is patent Respiratory effort is even, unlabored, Respiratory pattern is regular, symmetrical. GI: No signs and/or symptoms were reported involving the gastrointestinal system. Abdomen is flat, non-distended. : No signs and/or symptoms were reported regarding the genitourinary system. Derm: Wound noted right foot. Musculoskeletal: Circulation, motion, and sensation intact. Reports pain in right foot. 20:30 Reassessment: Patient and/or family updated on plan of care and expected duration. Pain ha1 level reassessed. Patient is alert, oriented x 3, equal unlabored respirations, skin warm/dry/pink. 21:30 Reassessment: Patient and/or family updated on plan of care and expected duration. Pain ha1 level reassessed. Patient is alert, oriented x 3, equal unlabored respirations, skin warm/dry/pink. 22:30 Reassessment: Patient and/or family updated on plan of care and expected duration. Pain ha1 level reassessed. Patient is alert, oriented x 3, equal unlabored respirations, skin warm/dry/pink. 23:27 Reassessment: Patient and/or family updated on plan of care and expected duration. Pain ha1 level reassessed. Patient is alert, oriented x 3, equal unlabored respirations, skin warm/dry/pink. Vital Signs: 17:45 BP 147 / 65; Pulse 45; Resp 16 S; Temp 99.4(O); Pulse Ox 98% on R/A; aa5 18:57 BP 136 / 80; Pulse 85; Resp 16; Pulse Ox 97% ; bp 20:00 BP 128 / 60; Pulse 80; Resp 16 S; Pulse Ox 99% on R/A; ha1 21:00 BP 140 / 64; Pulse 83; Resp 16 S; Pulse Ox 99% on R/A; ha1 22:00 BP 142 / 67; Pulse 88; Resp 18 S; Pulse Ox 98% on R/A; ha1 23:27 BP 144 / 83; Pulse 84; Resp 18 S; Temp 98.2(O); Pulse Ox 99% on R/A; ha1 ED Course: 17:42 Patient arrived in ED. am2 17:42 Salazar Robles MD is Private Physician. am2 17:45 Arm band placed on. aa5 17:49 Kashmir Steward PA is PHCP. cp 17:49 Kashmir Benjamin MD is Attending Physician. cp 17:51 Triage completed. aa5 18:09 Inserted saline lock: 20 gauge in right antecubital area, using aseptic technique. aa5 Blood collected. 18:09 Initial lab(s) drawn, by me, sent to lab. First set of blood cultures drawn by me. aa5 18:38 Pj Cortez, RN is Primary Nurse. bp 18:41 Patient has correct armband on for positive identification. Bed in low position. Call bp light in reach. Side rails up X2. 18:46 Chest Single View XRAY In Process Unspecified. EDMS 19:20 Second set of blood cultures drawn by me. mb9 19:52 XRAY Foot RIGHT 3 View In Process Unspecified. EDMS 20:16 US Extremity Venous Unilateral Ltd In Process Unspecified. EDMS 20:16 Lower Extremity Artery Uni Ltd US In Process Unspecified. EDMS 20:19 Primary Nurse role handed off by Pj Cortez, SUBHASH 20:48 Yolis Lombardi PA-C is Hospitalizing Provider. cp 20:52 Mckenna Willis RN is Primary Nurse. ha1 23:47 No provider procedures requiring assistance completed. Patient admitted, IV remains in ha1 place. Administered Medications: 18:54 Drug: NS 0.9% IV 1000 ml Route: IV; Rate: 1 bolus; Site: right antecubital; bp 22:20 Follow up: Response: No adverse reaction; IV Status: Completed infusion; IV Intake: ha1 1000ml 21:54 Drug: Cefepime IVPB 1 grams Route: IVPB; Rate: 200 ml/hr; Infused Over: 30 mins; Site: ha1 right antecubital; 22:30 Follow up: Response: No adverse reaction ha1 22:30 Drug: vancoMYCIN IVPB 1 grams Route: IVPB; Infused Over: 2 hrs; Site: right antecubital;ha1 23:49 Follow up: Response: No adverse reaction; IV Status: Infusion continued; IV Intake: ha1 150ml Medication: 18:41 VIS not applicable for this client. bp Intake: 22:20 IV: 1000ml; Total: 1000ml. ha1 23:49 IV: 150ml; Total: 1150ml. ha1 Outcome: 20:48 Decision to Hospitalize by Provider. cp 23:48 Admitted to Med/surg accompanied by tech, via wheelchair, room 208, with chart, Report ha1 called to SUBHASH Freeman 23:48 Condition: stable 23:48 Discharge instructions given to patient, Instructed on the need for admit, Demonstrated understanding of instructions. 23:50 Patient left the ED. ha1 Signatures: Dispatcher [employer] EDMS Rossy Esposito, RN RN aa5 Kashmir Steward PA PA cp Yvonne Bates amPj Hickman, RN RN Mariah Marroquin Heidy RN RN ha1 Martha Santizo RN RN mb9 Corrections: (The following items were deleted from the chart) 17:52 17:51 Allergies: Aspirin; jazz chew5
--- NOTE | 2022-10-11 20:49 | EDPHYS ---
Physician Documentation [facility] Name: Maik Stock Age: 46 yrs Sex: Male : 1975 Arrival Date: 10/11/2022 Time: 17:35 Bed 14 Private MD: Salazar Robles E ED Physician Kashmir Benjamin HPI: 10/11 18:10 This 46 yrs old Male presents to ER via Ambulatory with complaints of Leg cp Swelling. 18:10 The patient presents with pain, that is acute, swelling, tenderness, erythema. The cp complaints affect the right lower leg and right foot. Onset: The symptoms/episode began/occurred gradually, and became worse 4 day(s) ago. 18:10 Recently finished RX for Cephalexin antibiotic. cp Historical: - Allergies: 17:51 No Known Allergies; aa5 - PMHx: 17:51 Diabetes - NIDDM; Hypertensive disorder; aa5 - PSHx: 17:51 toe amputation; aa5 - Immunization history:: Adult Immunizations unknown. - Social history:: Smoking status: Patient denies any tobacco usage or history of. ROS: 18:15 Constitutional: Negative for body aches, chills, fever, poor PO intake. cp 18:15 MS/extremity: Positive for erythema, pain, swelling, tenderness, of the right foot and cp right lower leg. Exam: 18:20 Constitutional: The patient appears in no acute distress, alert, awake, cp non-diaphoretic, non-toxic, well developed, well nourished. 18:20 Head/Face: Normocephalic, atraumatic. cp 18:20 Eyes: Periorbital structures: appear normal, Conjunctiva: normal, no exudate, no injection, Sclera: no appreciated abnormality, Lids and lashes: appear normal, bilaterally. 18:20 ENT: External ear(s): are unremarkable, Nose: is normal, Mouth: Lips: moist, Oral mucosa: pink and intact, moist, Posterior pharynx: is normal, airway is patent, no erythema, no exudate. 18:20 Chest/axilla: Inspection: normal. 18:20 Cardiovascular: Rate: bradycardic, Rhythm: regular. 18:20 Respiratory: the patient does not display signs of respiratory distress, Respirations: normal, no use of accessory muscles, no retractions, labored breathing, is not present, Breath sounds: are clear throughout, no decreased breath sounds, no stridor, no wheezing. 18:20 Abdomen/GI: Exam negative for discomfort, distension, guarding, Inspection: abdomen appears normal. 18:20 Musculoskeletal/extremity: Extremities: grossly normal except: noted in the right foot and right leg: erythema extending from dorsum right foot to lower right leg with circumferential swelling of right lower leg. Right great toe previously amputated. Small superficial wound noted medial side at amputation site with purulent drainage. Vital Signs: 17:45 BP 147 / 65; Pulse 45; Resp 16 S; Temp 99.4(O); Pulse Ox 98% on R/A; aa5 18:57 BP 136 / 80; Pulse 85; Resp 16; Pulse Ox 97% ; bp 20:00 BP 128 / 60; Pulse 80; Resp 16 S; Pulse Ox 99% on R/A; ha1 21:00 BP 140 / 64; Pulse 83; Resp 16 S; Pulse Ox 99% on R/A; ha1 22:00 BP 142 / 67; Pulse 88; Resp 18 S; Pulse Ox 98% on R/A; ha1 23:27 BP 144 / 83; Pulse 84; Resp 18 S; Temp 98.2(O); Pulse Ox 99% on R/A; ha1 MDM: 17:54 Patient medically screened. 20:50 Data reviewed: vital signs, nurses notes, lab test result(s), EKG, radiologic studies, cp plain films, ultrasound. 20:50 Differential diagnosis: sepsis, cellulitis, abscess, osteomyelitis. Consideration of cp Admission/Observation Patient was admitted/placed on observation. Management of patient was discussed with the following: Hospitalist: Mckenzie Lombardi NP will admit after discussion. Counseling: I had a detailed discussion with the patient and/or guardian regarding: the historical points, exam findings, and any diagnostic results supporting the discharge/admit diagnosis, lab results, radiology results, the need for further work-up and treatment in the hospital. 10/11 17:57 Order name: Blood Culture Adult (2) cp 10/11 17:57 Order name: CBC with Diff; Complete Time: 18:43 cp 10/11 18:44 Interpretation: Normal except: RBC 3.48; HGB 10.6; HCT 30.8; PLT 440; MPV 7.5. cp 05/04 17:57 Order name: CMP; Complete Time: 18:43 cp 05/04 18:44 Interpretation: Normal except: NA 132; GLUC 266; BUN 27; GFR 72; ALK 199; ALB 2.9; GLOB cp 5.0; A/G 0.6. 05/04 17:57 Order name: Lactate w/ 2H reflex if indic.; Complete Time: 18:43 cp 05/04 18:44 Interpretation: LAC 1.3; Reviewed. cp 05/04 17:57 Order name: Protime (+inr); Complete Time: 18:43 cp 05/04 17:57 Order name: Ptt, Activated; Complete Time: 18:43 cp 05/04 20:46 Order name: Wound Culture cp 05/04 17:57 Order name: Chest Single View XRAY; Complete Time: 19:32 cp 05/04 18:46 Order name: US Extremity Venous Unilateral Ltd; Complete Time: 20:39 cp 05/04 18:46 Order name: XRAY Foot RIGHT 3 View; Complete Time: 20:39 cp 05/04 18:46 Order name: Lower Extremity Artery Uni Ltd US; Complete Time: 20:39 cp 05/04 17:57 Order name: EKG; Complete Time: 17:57 cp 05/04 17:57 Order name: Accucheck; Complete Time: 18:40 cp 05/04 17:57 Order name: Cardiac monitoring; Complete Time: 18:40 cp 05/04 17:57 Order name: EKG - Nurse/Tech; Complete Time: 18:40 cp 05/04 17:57 Order name: IV Saline Lock - Large Bore; Complete Time: 18:10 cp 05/04 17:57 Order name: Labs collected and sent; Complete Time: 18:10 cp 05/04 17:57 Order name: O2 Per Protocol; Complete Time: 18:40 cp 05/04 17:57 Order name: O2 Sat Monitoring; Complete Time: 18:40 cp 05/04 17:57 Order name: Vital Signs; Complete Time: 18:40 cp Administered Medications: 18:54 Drug: NS 0.9% IV 1000 ml Route: IV; Rate: 1 bolus; Site: right antecubital; bp 22:20 Follow up: Response: No adverse reaction; IV Status: Completed infusion; IV Intake: ha1 1000ml 21:54 Drug: Cefepime IVPB 1 grams Route: IVPB; Rate: 200 ml/hr; Infused Over: 30 mins; Site: ha1 right antecubital; 22:30 Follow up: Response: No adverse reaction ha1 22:30 Drug: vancoMYCIN IVPB 1 grams Route: IVPB; Infused Over: 2 hrs; Site: right antecubital;ha1 23:49 Follow up: Response: No adverse reaction; IV Status: Infusion continued; IV Intake: ha1 150ml Disposition Summary: 10/11/22 20:48 Hospitalization Ordered Hospitalization Status: Inpatient Admission cp Provider: Yolis Lombardi cp Location: Telemetry/MedSurg (Inpatient) cp Condition: Stable cp Problem: an ongoing problem cp Symptoms: have improved cp Bed/Room Type: Standard cp Room Assignment: 208(10/11/22 22:56) kd3 Diagnosis - Cellulitis of right lower limb cp - Diabetes mellitus due to underlying condition with hyperglycemia cp Forms: - Medication Reconciliation Form cp - SBAR form cp Signatures: Dispatcher [employer] EDRossy Ernst RN RN aa5 Kashmir Steward PA PA cp Pj Cortez RN RN bp Joan Alcala RN RN kd3 Mckenna Willis RN RN ha1 Corrections: (The following items were deleted from the chart) 17:52 17:51 Allergies: Aspirin; aa5 aa5 22:56 20:48 cp kd3
[2022-10-11] MEDS ORDERED: VANCOMYCIN 1 GM/VIAL ONE (21:20)
[2022-10-11] MEDS ORDERED: NA CHLORIDE 0.9% 250 ML ONE (21:20)
[2022-10-11] MEDS ORDERED: CEFEPIME 1 GM/VIAL ONE (21:21)
[2022-10-11] MEDS ORDERED: NA CHLORIDE 0.9% 100 ML ONE (21:21)
--- NOTE | 2022-10-11 22:48 | P.HP ---
Certification for Inpatient Patient admitted to: Inpatient With expected LOS: >2 Midnights Patient will require the following post-hospital care: None Practitioner: I am a practitioner with admitting privileges, knowledge of patient current condition, hospital course, and medical plan of care. Services: Services provided to patient in accordance with Admission requirements found in Title 42 Section 412.3 of the Code of Federal Regulations Patient History Date of Service: 10/12/22 Primary Care Provider: Vaishali Ogden Reason for admission: Cellulitus RLE History of Present Illness: Mr. Stock is a 46 year old male, Syriac speaking only, with past medical history of insulin dependent type 2 diabetes, hypertension, and hyperlipidemia who presented to the emergency department with right lower extremity cellulitus. He was originally seen in the ED 10 days ago and discharged with prescription of keflex, which he has completed. He states the redness significantly worsened about 4 days ago. He also complains of an ulcer on the amputation site of his medial left great toe and medial forefoot. Foot xray showed "Great toe amputation is seen. Small soft tissue ulceration is along the ball of the foot at the level of the great toe. Small calcaneal spurs. No radiographic evidence of osteomyelitis." Arterial US of RLE showed "Monophasic right posterior tibial and dorsalis pedis indicates [id number] peripheral vascular disease infrapopliteal level." Venous US of RLE showed "No evidence of right extremity deep venous thrombosis. Nonspecific 3 cm enlarged right groin lymph node." No significant lab abnormalities. Vitals stable, no SIRS criteria met. He was started on vancomycin and cefepime in the emergency department and will be admitted for further management of RLE cellulitus, failed outpatient treatment. Allergies No Known Drug Allergies Allergy (Verified 10/23/21 22:30) Unknown Home medications list reviewed: Yes Home Medications: Metformin HCl [Metformin ER Osmotic] 1,000 mg PO BID 02/06/17 Insulin Glargine,Hum.rec.anlog [Lantus] 30 units SQ BEDTIME 09/05/20 Atorvastatin Calcium 40 mg PO DAILY 10/24/21 Codeine/APAP [Tylenol #3*] 1 tab PO Q4H PRN #20 tab 10/24/21 Dapagliflozin Propanediol [Farxiga] 10 mg PO DAILY 10/24/21 Doxycycline Hyclate 100 mg PO BID #28 capsule 10/24/21 Lisinopril [Zestril] 2.5 mg PO DAILY 10/24/21 levoFLOXacin [Levaquin] 750 mg PO DAILY #14 tab 10/24/21 - Past Medical/Surgical History Diabetic: Yes -: IDDM -: Neuropathy -: Sleep apnea -: Hypertension -: Right great toe partial-amputation -: Right knee replacement -: Excisional subQ debridement necrotic wound left thigh Psychosocial/ Personal History: Patient is . - Family History Family History: Reviewed- Non-Contributory - Family History Mother -: Hypertension, Diabetes Father -: Diabetes - Social History Smoking Status: Never smoker Alcohol use: Yes CD- Drugs: No Caffeine use: No Place of Residence: Home Review of Systems Integumentary: As per HPI Physical Examination - Vital Signs Temperature: 99.4 F Blood Pressure: 136/80 Pulse: 85 Respirations: 16 Pulse Ox (%): 97 - Physical Exam General: Alert, In no apparent distress HEENT: Atraumatic, EOMI, Sclerae nonicteric Neck: Supple, 2+ carotid pulse no bruit Respiratory: Clear to auscultation bilaterally, Normal air movement Cardiovascular: Regular rate/rhythm, Normal S1 S2 Gastrointestinal: Normal bowel sounds, No tenderness Musculoskeletal: No tenderness Integumentary: Tenderness/swelling, Erythema, Warmth, Other (ulcer on the amputation site of medial left great toe and left medial forefoot) Neurological: Normal speech, Normal affect - Studies Laboratory Data (last 24 hrs) 10/11/22 18:09: PT 12.8 H, INR 1.16, APTT 29.8 10/11/22 18:09: Sodium 132 L, Potassium 4.0, BUN 27 H, Creatinine 1.24, Glucose 266 H, Total Bilirubin 0.6, AST 33, ALT 52, Alkaline Phosphatase 199 H 10/11/22 18:09: WBC 8.30, Hgb 10.6 L, Hct 30.8 L, Plt Count 440 H Assessment and Plan - Problems (Diagnosis) (1) Cellulitis of right leg Current Visit: Yes Status: Acute (2) Type 2 diabetes mellitus Current Visit: Yes Status: Chronic Qualifiers: Diabetes mellitus residential insulin use: with intermission coordinator use Diabetes mellitus complication status: with hyperglycemia Qualified Code(s): E11.65 - Type 2 diabetes mellitus with hyperglycemia; Z79.4 - correction (current) use of insulin (3) Hypertension Current Visit: Yes Status: Chronic Qualifiers: Hypertension type: primary hypertension Qualified Code(s): I10 - Essential (primary) hypertension - Plan Patient is admitted for further management of RLE cellulitus, failed outpatient treatment. Continue vancomycin and cefepime. Wound & blood cultures obtained. Consult general surgery, Dr. Murrieta. Patient has seen him several times in the past. ACHS accu checks with mild sliding scale, diabetic diet, resume long acting insulin once confirmed. Check a1c and lipid panel. Consult wound healing. Monitor and replete electrolytes per protocol. Reconcile and continue home medications. Lovenox for VTE prophylaxis. Discharge Plan: Home Plan to discharge in: 48 Hours - Advance Directives Does patient have a Living Will: No Does patient have a Durable POA for Healthcare: No - Code Status/Comfort Care Code Status Assessed: Yes Code Status: Full Code Physician Review: Patient Assessed, Agree with Above Assessment and Plan Critical Care: No Time Spent Managing Pts Care (In Minutes): 50
[2022-10-11] MEDS ORDERED: ONDANSETRON 4 MG/2 ML VIAL IV PRN (23:43)
[2022-10-11] MEDS ORDERED: VANCOMYCIN 1 GM in NA CHLORIDE 0.9% 250 ML IVPB SCH (23:43)
[2022-10-12] MEDS: NA CHLORIDE 0.9% 1,000 ML IV SCH ×2 (00:07→11:40)
[2022-10-12 01:36] VITALS: BMI 28.5
[2022-10-12] MEDS ORDERED: VANCOMYCIN 500 MG in NA CHLORIDE 0.9% 100 ML IVPB ONE (02:30)
[2022-10-12] MEDS: INSULIN -REGULAR HUMAN 50 UNIT/0.5 ML ML SQ SCH ×5 (05:36→20:21)
[2022-10-12 06:52] LABS: Absolute Lymphocytes (CBC) 1.6 K/uL (0.7-4.9); Hematocrit 30.1 % (39.6-49.0); Lymphocytes % 28.7 % (15.3-44.8); MCV 88.8 fL (80-100); MPV 7.3 fL (7.6-11.3); RBC Red Blood Cell Count 3.38 M/uL (4.33-5.43)
[2022-10-12 07:19] LABS: Magnesium 1.8 mg/dL (1.6-2.4); Phosphorus 2.5 mg/dL (2.5-4.9); Potassium 3.9 mEq/L (3.5-5.1); Thyroid Stimulating Hormone 0.45 uIU/mL (0.358-3.740)
[2022-10-12] MEDS: CEFEPIME 1 GM in NA CHLORIDE 0.9% 100 ML IV SCH ×2 (08:03→20:58)
[2022-10-12] MEDS: ENOXAPARIN 40 MG/0.4 ML SQ SCH (08:03)
[2022-10-12] MEDS ORDERED: VANCOMYCIN 1 GM in NA CHLORIDE 0.9% 250 ML IVPB SCH (09:00)
[2022-10-12] MEDS ORDERED: VANCOMYCIN 1.5 GM in NA CHLORIDE 0.9% 500 ML IVPB SCH (11:30)
[2022-10-12] MEDS ORDERED: VANCOMYCIN 1.75 GM in NA CHLORIDE 0.9% 500 ML IVPB SCH (13:00)
[2022-10-12] MEDS: ACETAMINOPHEN 500 MG TAB PO PRN (21:00)
[2022-10-13] MEDS: VANCOMYCIN 1.5 GM in NA CHLORIDE 0.9% 500 ML IVPB SCH ×2 (00:04→13:00)
[2022-10-13] MEDS: NA CHLORIDE 0.9% 1,000 ML IV SCH ×3 (00:04→17:53)
[2022-10-13] MEDS: INSULIN -REGULAR HUMAN 50 UNIT/0.5 ML ML SQ SCH ×4 (07:30→21:00)
[2022-10-13] MEDS: CEFEPIME 1 GM in NA CHLORIDE 0.9% 100 ML IV SCH ×2 (08:04→21:04)
[2022-10-13] MEDS: ENOXAPARIN 40 MG/0.4 ML SQ SCH (08:07)
[2022-10-13] MEDS ORDERED: BUPIVACAINE 0.25% PF 10 ML VIAL ONE (09:56)
[2022-10-13] MEDS ORDERED: SUCCINYLCHOLINE 20 MG/ML (10 ML) IV ONE (10:02)
[2022-10-13] MEDS ORDERED: propofoL 200 MG/20 ML VIAL IV ONE (10:04)
[2022-10-13] MEDS ORDERED: MIDAZOLAM HCL 2 MG/2 ML INJ ONE (10:07)
[2022-10-13] MEDS ORDERED: FENTANYL CITR 100 MCG/2 ML ONE (10:07)
[2022-10-13] MEDS: NA CHLORIDE 0.9% 1,000 ML ONE ×2 (10:35→11:01)
--- NOTE | 2022-10-13 10:37 | P.OP ---
Preoperative diagnosis: RIGHT Foot Infected Wound Postoperative diagnosis: RIGHT Foot Infected Wound Primary procedure: Debridement of RIGHT Foot Infected Wound Anesthesia: MAC Estimated blood loss: <5cc Specimen: Debridement Tissue, Cultures Findings: lateral wound communicated with plantar wound ~ 1st MT, abscess noted Complications: None Transferred to: Recovery Room Condition: Good
[2022-10-13] MEDS ORDERED: COLLAGENASE 30 GM OINTMENT TOP ONE (11:02)
[2022-10-13 11:03] VITALS: O2SAT 98
--- NOTE | 2022-10-13 12:24 | OP ---
Date of Procedure: 10/13/2022 Surgeon: Ajay Jimenes MD, Preoperative Diagnosis: Right foot infected wound. Postoperative Diagnosis: Right foot infected wound. Procedure Performed: Debridement of right foot infected wound. Anesthesia: MAC. Estimated Blood Loss: Less than 5 cc. Specimen: Debridement of tissue and culture sent for both aerobic and anaerobic speciation. Findings: The patient had a wound on the right foot along the metatarsal base. Patient had a previo us great toe amputation and has a wound on the lateral aspect of the metatarsal distribution. Additi onally, there is a plantar wound on the same said first metatarsal area. The wound communicated from the lateral to the plantar and abscess was noted within this. Complications: None. Disposition: Patient transferred to recovery room in good condition. Procedure In Detail: After informed consent was obtained, patient was brought to the operating room, prepped and draped in the usual sterile fashion. After adequate anesthesia was achieved, I proceede d to debride necrotic tissue. Abscess material was emanating from the wound. At this point, I sent cultures for both aerobic and anaerobic speciation at this time. I then proceeded to debride the are a using combination of sharp dissection with curette as well as a rasp to clean out all necrotic tiss ue through this cavity which was found to be communicating between the lateral wound on the first met atarsal of the right foot down to the plantar aspect of that same first metatarsal. The wound dimens ions were approximately 2.5 cm plantar wound, 1.5 cm x 2.5 cm lateral wound and between the communica tion from lateral to medial was approximately 4.5 to 5 cm by approximately 3 cm down to the fascia ov erlying the bone with a depth of approximately 3.5 to 4 cm. The entire cavity was cleaned out at thi s point using debridement method as described above. The area was copiously irrigated. Hemostasis w as minimally required and electrocautery was used for this. The area was irrigated once again and I packed through the tunnel using Vashe soaked gauze and a sterile dressing placed over top. The patie nt tolerated the procedure well without evidence of complication and transferred to PACU in good cond ition. All counts were correct at the end of the case. TK/MODL Voice ID: [id number] Report ID: [id number]
[2022-10-13 15:54] LABS: Absolute Lymphocytes (CBC) 1.8 K/uL (0.7-4.9); Hematocrit 32.9 % (39.6-49.0); Lymphocytes % 22.9 % (15.3-44.8); MCV 90.1 fL (80-100); MPV 7.4 fL (7.6-11.3); RBC Red Blood Cell Count 3.66 M/uL (4.33-5.43)
[2022-10-13 16:08] LABS: Magnesium 1.8 mg/dL (1.6-2.4); Potassium 3.8 mEq/L (3.5-5.1)
[2022-10-13] MEDS ORDERED: VANCOMYCIN 1.75 GM in NA CHLORIDE 0.9% 500 ML IVPB SCH (18:00)
[2022-10-13] MEDS: ACETAMINOPHEN 500 MG TAB PO PRN (21:03)
[2022-10-14] MEDS: NA CHLORIDE 0.9% 1,000 ML IV SCH (07:01)
[2022-10-14] MEDS: INSULIN -REGULAR HUMAN 50 UNIT/0.5 ML ML SQ SCH (07:30)
[2022-10-14 08:44] VITALS: BP 133/59; TEMP 98.1
[2022-10-14] MEDS ORDERED: CEFEPIME 2 GM in NA CHLORIDE 0.9% 100 ML IV SCH (09:00)
[2022-10-14] MEDS: ENOXAPARIN 40 MG/0.4 ML SQ SCH (09:11)
== END 2022-10-14 12:50 | disposition home or self-care (01) | DRG 571 ==
LOC: ER 17:35 → 2ND 23:18
PROVIDERS: ADMIT Hospitalist; ATTEND Hospitalist
PROC: 0JBQ0ZZ Excision of Right Foot Subcutaneous Tissue and Fascia, Open Approach (ICD-10-PCS; principal; 2022-10-13 10:00)
DX: L03.115 Cellulitis of right lower limb (principal); E11.52 Type 2 diabetes mellitus with diabetic peripheral angiopathy with gangrene; L97.429 Non-pressure chronic ulcer of left heel and midfoot with unspecified severity; E11.65 Type 2 diabetes mellitus with hyperglycemia; E11.621 Type 2 diabetes mellitus with foot ulcer; L97.529 Non-pressure chronic ulcer of other part of left foot with unspecified severity; E11.40 Type 2 diabetes mellitus with diabetic neuropathy, unspecified; I10 Essential (primary) hypertension; E78.5 Hyperlipidemia, unspecified; Z79.4 Long term (current) use of insulin; Z79.84 Long term (current) use of oral hypoglycemic drugs; Z89.411 Acquired absence of right great toe; Z79.899 Other long term (current) drug therapy; Z96.651 Presence of right artificial knee joint
CPT/HCPCS: 36415; 71045; 80048; 80053; 80061; 80202; 82947; 83036; 83605; 83735; 84100; 84443; 85025; 85610; 85730; 86140; 87040; 87070; 87075; 87077; 87186; 87205; 88304; 93926; 93971; 96361; 96365; 96375; 99285; J0692; J1650; J2250; J2704; J3010; J3590; J7030; J7040; J7050

== ENCOUNTER 2024-02-04 10:15 | Inpatient (IN) | payer OTHER ==
[2024-02-04] MEDS: INSULIN GLARGINE 100 UNIT/ML SQ SCH (09:00)
[2024-02-04] MEDS ORDERED: NA CHLORIDE 0.9% 100 ML ONE (11:00)
[2024-02-04] MEDS ORDERED: VANCOMYCIN 1 GM/VIAL ONE ×2 (11:00→14:11)
[2024-02-04] MEDS ORDERED: NA CHLORIDE 0.9% 250 ML ONE ×2 (11:00→14:11)
[2024-02-04] MEDS ORDERED: PIPERACIL/TAZO 3.375 GM VIAL IV ONE (11:00)
[2024-02-04 11:20] LABS: Absolute Basophils 0.1 K/uL (0-0.5); Absolute Lymphocytes (CBC) 1.2 K/uL (0.7-4.9); Absolute Monocytes 0.8 K/uL (0.1-1.3); Absolute Neutrophil 14.5 K/uL (1.8-8.0); Basophils % 0.4 % (0-1.3); Eosinophils % 0.1 % (0-4.4); Hemoglobin 9.3 g/dL (13.6-17.9); Lymphocytes % 7.2 % (15.3-44.8); MCH 28.4 pg (27.0-35.0); MCHC 32.1 g/dL (32.0-36.0); MCV 88.6 fL (80-100); MPV 7.4 fL (7.6-11.3); Monocytes % 4.6 % (3.3-12.3); Neutrophils % 87.7 % (41.7-73.7); Platelets 665 thou/uL (152-406); RBC Red Blood Cell Count 3.27 M/uL (4.33-5.43); Red Cell Distribution Width 14.3 % (12.1-15.2)
--- NOTE | 2024-02-04 11:30 | RAD REPORT ---
EXAM DESCRIPTION: RAD - Foot Right 3 View - 02/04/2024 10:59 am CLINICAL HISTORY: Assess for osteo COMPARISON: Foot Right 3 View dated 04/03/2023; Foot Right 3 View dated 10/11/2022 TECHNIQUE: Right foot, 3 views. FINDINGS: Progressive soft tissue swelling along the medial forefoot, near the big toe amputation st ump. Osseous destructive changes of the medial sesamoid, as well as the head/neck of the second metat arsal. Probable early osseous destructive changes at the plantar aspect of the head of the first meta tarsal as well. Limited soft tissue gas along the plantar aspect of the foot soft tissues. Opacification along the plantar aponeurosis again seen. Sequelae of moderate arthritic changes along the midfoot again seen. No air or foreign body in the soft tissues. IMPRESSION: Osseous destructive changes involving the medial first digit sesamoid as well as the hea d/ neck of the second metatarsal, concerning for osteomyelitis. Adjacent soft tissue gas.
[2024-02-04 11:38] LABS: Albumin 2.6 g/dL (3.4-5.0); Albumin/Globulin Ratio 0.4 (1.1-1.8); Anion Gap 9.7 mEq/L (5.0-15.0); Bilirubin Total 1.3 mg/dL (0.2-1.0); Globulin 7.2 g/dL (2.3-3.5); Potassium 3.7 mEq/L (3.5-5.1); Protein, Total 9.8 g/dL (6.4-8.2)
--- NOTE | 2024-02-04 11:45 | ER ---
Nurse's Notes [facility] Name: Maik Stock Age: 48 yrs Sex: Male : 1975 Arrival Date: 02/04/2024 Time: 10:15 Bed 5 Private MD: Diagnosis: Osteomyelitis, diabetic foot, sepsis Presentation: 02/03 10:31 Chief complaint: Patient states: infection to right foot, is diabetic. Coronavirus iw screen: At this time, the client does not indicate any symptoms associated with coronavirus-19. Ebola Screen: No symptoms or risks identified at this time. Initial Sepsis Screen: Does the patient meet any 2 criteria? No. Patient's initial sepsis screen is negative. Does the patient have a suspected source of infection? No. Patient's initial sepsis screen is negative. Risk Assessment: Do you want to hurt yourself or someone else? Patient reports no desire to harm self or others. Onset of symptoms was February 03, 2024. 10:31 Method Of Arrival: Ambulatory iw 10:31 Acuity: JACQUE 3 iw Historical: - Allergies: 10:32 No Known Allergies; iw - PMHx: 10:32 Diabetes - NIDDM; Hypertensive disorder; iw - PSHx: 10:32 toe amputation; iw - Immunization history:: Client reports receiving the 2nd dose of the Covid vaccine. - Infectious Disease History:: Denies. - Social history:: Smoking status: Patient denies any tobacco usage or history of. Patient/guardian denies using alcohol. Screenin:17 [facility] ED Fall Risk Assessment (Adult) History of falling in the last 3 months, tm6 including since admission No falls in past 3 months (0 pts) Confusion or Disorientation No (0 pts) Intoxicated or Sedated No (0 pts) Impaired Gait No (0 pts) Mobility Assist Device Used No (0 pt) Altered Elimination No (0 pt) Score/Fall Risk Level 0 - 2 = Low Risk Oriented to surroundings, Maintained a safe environment, Educated pt \T\ family on fall prevention, incl call for assistance when getting out of bed. Abuse screen: Denies threats or abuse. Denies injuries from another. Nutritional screening: No deficits noted. Tuberculosis screening: No symptoms or risk factors identified. Assessment: 11:17 General: Appears in no apparent distress. Behavior is calm, cooperative. Pain: tm6 Complains of pain in right foot Pain does not radiate. Pain currently is 0 out of 10 on a pain scale. at worst was 10 out of 10 on a pain scale. Quality of pain is described as aching. Neuro: Level of Consciousness is awake, alert, obeys commands, Oriented to person, place, time, situation. Cardiovascular: Patient's skin is warm and dry. Respiratory: No deficits noted. Airway is patent Respiratory effort is even, unlabored, Respiratory pattern is regular, symmetrical. GI: No signs and/or symptoms were reported involving the gastrointestinal system. Abdomen is flat, non-distended. : No signs and/or symptoms were reported regarding the genitourinary system. EENT: No signs and/or symptoms were reported regarding the EENT system. Derm: Wound noted right foot Reports. Musculoskeletal: Reports pain in right foot when walking. 11:28 Cardiovascular: Rhythm is sinus rhythm with unifocal PVCs. tm6 16:17 Reassessment: Patient appears in no apparent distress at this time. Patient and/or tm6 family updated on plan of care and expected duration. Pain level reassessed. Patient is alert, oriented x 3, equal unlabored respirations, skin warm/dry/pink. Vital Signs: 10:31 BP 124 / 66; Pulse 94; Resp 16; Temp 98.4; Pulse Ox 100% on R/A; iw 11:29 BP 116 / 47; Pulse 96; Pulse Ox 100% on R/A; Pain 0/10; tm6 13:34 Weight 88.45 kg; Height 5 ft. 10 in. ; iw 15:36 BP 102 / 62; Pulse 92; Resp 18; Pulse Ox 99% on R/A; ph 16:16 BP 138 / 73; Pulse 88; Resp 19; Pulse Ox 98% on R/A; Pain 0/10; tm6 13:34 Body Mass Index 27.98 (88.45 kg, 177.8 cm) iw 11:29 Pain Scale: Adult tm6 16:16 Pain Scale: Adult tm6 ED Course: 10:21 Patient arrived in ED. im 10:23 Mohan Souza MD is Attending Physician. sp3 10:32 Triage completed. iw 10:32 Arm band placed on. iw 10:55 Alexia Adams, SUBHASH is Primary Nurse. tm6 11:01 Foot Right 3 View XRAY In Process Unspecified. EDMS 11:17 Patient has correct armband on for positive identification. Bed in low position. Call tm6 light in reach. Side rails up X 1. Provided Education on: use of call aguilar. Client placed on continuous cardiac and pulse oximetry monitoring. NIBP monitoring applied. Pulse ox on. NIBP on. Door closed. Noise minimized. Warm blanket given. Pillow given. 11:17 Inserted saline lock: 20 gauge in right antecubital area, using aseptic technique. tm6 Blood collected. Flushed with 10 mL NS. 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 tm6 11:28 EKG done, by ED staff, reviewed by Mohan Souza MD. tm6 11:43 Neil Mendiola MD is Hospitalizing Provider. sp3 12:35 1235 CM met with patient at bedside in the ED exam room. Patient identified by name and ane . Demographic sheet confirmed. Patient reports he lives with his 14 y/o son on a 2 bedroom trailer. Patient reports prior to admission, he performs ADLs independently and without physical limitations. states he has several pieces of DME in his home including a wheelchair, a lift, hospital bed, and even owns a van with a ramp. shared his recently 3 months prior and the DME was to care for her. No MPOA in place at this time. No HH, home oxygen, or other medical services at this time. Mr. Stock's preferred discharge plan is to return home. He states he has friends and family to assist him and plans to drive himself home upon discharge. CM team will continue to follow and coordinate care. 15:36 No provider procedures requiring assistance completed. Patient admitted, IV remains in ph place. Administered Medications: 11:20 Drug: Piperacillin-Tazobactam IVPB 3.375 grams IVPB once over 60 mins; (mix in NS 100 tm6 mL) Route: IVPB; Infused Over: 60 mins; Site: right antecubital; 11:43 Follow up: Response: No adverse reaction; IV Status: Completed infusion; IV Intake: tm6 100ml 11:44 Follow up: Response: No adverse reaction; IV Status: Completed infusion; IV Intake: ph 100ml 11:45 Drug: vancoMYCIN IVPB 1 grams IVPB once over 2 hrs Route: IVPB; Infused Over: 2 hrs; ph Site: right antecubital; 16:17 Follow up: Response: No adverse reaction; IV Status: Completed infusion; IV Intake: tm6 250ml 12:12 Drug: NS 0.9% IV 1000 ml IV at 1 bolus Per protocol; 1000 mL bolus Route: IV; Rate: 1 me1 bolus; Site: right antecubital; 16:18 Follow up: Response: No adverse reaction; IV Status: Completed infusion; IV Intake: tm6 1000ml Medication: 11:17 VIS not applicable for this client. tm6 Intake: 11:43 IV: 100ml; Total: 100ml. tm6 11:44 IV: 100ml; Total: 200ml. ph 16:17 IV: 250ml; Total: 450ml. tm6 16:18 IV: 1000ml; Total: 1450ml. tm6 Outcome: 11:44 Decision to Hospitalize by Provider. sp3 16:17 Condition: stable tm6 16:18 Admitted to Med/surg accompanied by tech, via wheelchair, with chart, tm6 16:18 Instructed on the need for admit, 16:18 Patient left the ED. tm6 Signatures: Dispatcher [employer] Coty Brooks RN RN iw Hall, Patricia RN Mohan Pereira ph, MD MD sp3 Josefina Daniels Michelle RN RN me1 Alexia Adams RN RN tm6 Becki Chatterjee RN RN ane
--- NOTE | 2024-02-04 11:45 | EDPHYS ---
Physician Documentation [facility] Name: Maik Stock Age: 48 yrs Sex: Male : 1975 Arrival Date: 02/04/2024 Time: 10:15 Bed 5 Private MD: ED Physician Mohan Souza HPI: 02/03 10:42 This 48 yrs old Male presents to ER via Ambulatory with complaints of Wound sp3 Infection - right foot. 10:42 48-year-old male with history of diabetes and hypertension status post right toe sp3 amputation now presents with recurrent diabetic wound at the same site for the last 2 to 3 days. Patient states yesterday he felt a "pop" had some drainage. Patient has not seen PCP and is not on any current antibiotics. Review of systems otherwise negative for fever, chest pain, shortness of breath, abdominal pain, or any other signs or symptoms on ROS at this time.. Historical: - Allergies: 10:32 No Known Allergies; iw - PMHx: 10:32 Diabetes - NIDDM; Hypertensive disorder; iw - PSHx: 10:32 toe amputation; iw - Immunization history:: Client reports receiving the 2nd dose of the Covid vaccine. - Infectious Disease History:: Denies. - Social history:: Smoking status: Patient denies any tobacco usage or history of. Patient/guardian denies using alcohol. ROS: 10:43 Constitutional: Negative for fever, chills, and weight loss, Eyes: Negative for injury, sp3 pain, redness, and discharge, Neck: Negative for injury, pain, and swelling, Cardiovascular: Negative for chest pain, palpitations, and edema, Respiratory: Negative for shortness of breath, cough, wheezing, and pleuritic chest pain, Abdomen/GI: Negative for abdominal pain, nausea, vomiting, diarrhea, and constipation, Back: Negative for injury and pain, Skin: Negative for injury, rash, and discoloration, Neuro: Negative for headache, weakness, numbness, tingling, and seizure, Psych: Negative for depression, anxiety, suicide ideation, homicidal ideation, and hallucinations, Allergy/Immunology: Negative for hives, rash, and allergies, Endocrine: Negative for neck swelling, polydipsia, polyuria, polyphagia, and marked weight changes, Hematologic/Lymphatic: Negative for swollen nodes, abnormal bleeding, and unusual bruising, 10:43 All other systems are negative, sp3 Exam: 10:43 Constitutional: This is a well developed, well nourished patient who is awake, alert, sp3 and in no acute distress. Head/Face: Normocephalic, atraumatic. Neck: Trachea midline, no thyromegaly or masses palpated, and no cervical lymphadenopathy. Supple, full range of motion without nuchal rigidity, or vertebral point tenderness. No Meningismus. Chest/axilla: Normal chest wall appearance and motion. Nontender with no deformity. No lesions are appreciated. Cardiovascular: Regular rate and rhythm with a normal S1 and S2. No gallops, murmurs, or rubs. Normal PMI, no JVD. No pulse deficits. Respiratory: Lungs have equal breath sounds bilaterally, clear to auscultation and percussion. No rales, rhonchi or wheezes noted. No increased work of breathing, no retractions or nasal flaring. Back: No spinal tenderness. No costovertebral tenderness. Full range of motion. Neuro: Awake and alert, GCS 15, oriented to person, place, time, and situation. Cranial nerves II-XII grossly intact. Motor strength 5/5 in all extremities. Sensory grossly intact. Cerebellar exam normal. Normal gait. Psych: Awake, alert, with orientation to person, place and time. Behavior, mood, and affect are within normal limits. 10:43 Musculoskeletal/extremity: Right medial foot proximal to the former toe location with diabetic wound, malodorous discharge and possible osteomyelitis.. 11:43 ECG was reviewed by the Attending Physician. EKG demonstrates normal sinus rhythm at 93 sp3 bpm with normal intervals except QTc of 487 and multiple PVCs and ectopy throughout. No evidence of acute ischemia. Vital Signs: 10:31 BP 124 / 66; Pulse 94; Resp 16; Temp 98.4; Pulse Ox 100% on R/A; iw 11:29 BP 116 / 47; Pulse 96; Pulse Ox 100% on R/A; Pain 0/10; tm6 13:34 Weight 88.45 kg; Height 5 ft. 10 in. ; iw 15:36 BP 102 / 62; Pulse 92; Resp 18; Pulse Ox 99% on R/A; ph 16:16 BP 138 / 73; Pulse 88; Resp 19; Pulse Ox 98% on R/A; Pain 0/10; tm6 13:34 Body Mass Index 27.98 (88.45 kg, 177.8 cm) iw 11:29 Pain Scale: Adult tm6 16:16 Pain Scale: Adult tm6 MDM: 10:36 Patient medically screened. sp3 10:44 Data reviewed: vital signs, nurses notes, lab test result(s), radiologic studies. ED sp3 course: 48-year-old male with cellulitis and diabetic foot infection with possible osteomyelitis. Differential is just noted. Workup will include laboratory values, cultures and x-ray. Antibiotics will include Zosyn and vancomycin. Patient to be admitted to internal medicine with wound care consult as required.. 02/03 10:40 Order name: Blood Culture Adult (2) sp3 02/03 10:40 Order name: CBC with Diff; Complete Time: 12:10 sp3 02/03 10:40 Order name: CMP; Complete Time: 11:44 sp3 02/03 10:40 Order name: Lactate w/ 2H reflex if indic.; Complete Time: 11:44 sp3 02/03 11:26 Order name: CBC Smear Scan; Complete Time: 12:10 EDMS 02/03 12:33 Order name: Thyroid Stimulating Hormone; Complete Time: 15:38 EDMS 02/03 12:33 Order name: Urinalysis w/ reflexes EDMS 02/03 12:33 Order name: CBC with Automated Diff EDMS 02/03 12:33 Order name: CBC with Automated Diff EDMS 02/03 12:33 Order name: CBC with Automated Diff EDMS 02/03 12:33 Order name: CBC with Automated Diff EDMS 02/03 12:33 Order name: Comprehensive Metabolic Panel EDMS 02/03 12:33 Order name: Comprehensive Metabolic Panel EDMS 02/03 12:33 Order name: Comprehensive Metabolic Panel EDMS 02/03 12:33 Order name: Comprehensive Metabolic Panel EDMS 02/03 12:33 Order name: Lipid Profile EDMS 02/03 12:33 Order name: Lipid Profile EDMS 02/03 12:33 Order name: Magnesium EDMS 02/03 12:33 Order name: Magnesium EDMS 02/03 12:33 Order name: Magnesium EDMS 02/03 12:33 Order name: Magnesium EDMS 02/03 12:33 Order name: Phosphorus EDMS 02/03 12:33 Order name: Phosphorus EDMS 02/03 12:33 Order name: Phosphorus EDMS 02/03 12:33 Order name: Phosphorus EDMS 02/03 12:33 Order name: Troponin High Sensitivity EDMS 02/03 12:33 Order name: Troponin High Sensitivity; Complete Time: 15:38 EDMS 02/03 12:33 Order name: Troponin High Sensitivity EDMS 02/03 12:33 Order name: Troponin High Sensitivity EDMS 02/03 10:40 Order name: Foot Right 3 View XRAY; Complete Time: 11:34 sp3 02/03 12:33 Order name: Foot Right Wo Cont; Complete Time: 15:38 EDMS 02/03 10:40 Order name: Cardiac monitoring; Complete Time: 11:20 sp3 02/03 10:40 Order name: EKG - Nurse/Tech; Complete Time: 11:28 sp3 02/03 10:40 Order name: IV Saline Lock - Large Bore; Complete Time: 11:20 sp3 02/03 10:40 Order name: Labs collected and sent; Complete Time: 11:20 sp3 02/03 10:40 Order name: O2 Sat Monitoring; Complete Time: 11:20 sp3 02/03 10:40 Order name: Vital Signs; Complete Time: 11:20 sp3 Administered Medications: 11:20 Drug: Piperacillin-Tazobactam IVPB 3.375 grams IVPB once over 60 mins; (mix in NS 100 tm6 mL) Route: IVPB; Infused Over: 60 mins; Site: right antecubital; 11:43 Follow up: Response: No adverse reaction; IV Status: Completed infusion; IV Intake: tm6 100ml 11:44 Follow up: Response: No adverse reaction; IV Status: Completed infusion; IV Intake: ph 100ml 11:45 Drug: vancoMYCIN IVPB 1 grams IVPB once over 2 hrs Route: IVPB; Infused Over: 2 hrs; ph Site: right antecubital; 16:17 Follow up: Response: No adverse reaction; IV Status: Completed infusion; IV Intake: tm6 250ml 12:12 Drug: NS 0.9% IV 1000 ml IV at 1 bolus Per protocol; 1000 mL bolus Route: IV; Rate: 1 me1 bolus; Site: right antecubital; 16:18 Follow up: Response: No adverse reaction; IV Status: Completed infusion; IV Intake: tm6 1000ml Disposition Summary: 02/04/24 11:44 Hospitalization Ordered Notes: Hospitalization Status: Inpatient Admission sp3 Provider: Neil Mendiola Condition: Stable sp3 Problem: an acute exacerbation sp3 Symptoms: have worsened sp3 Bed/Room Type: Standard sp3 Location: Telemetry/MedSurg (Inpatient)(02/04/24 15:21) dw Room Assignment: [facility](02/04/24 15:21) dw Diagnosis - Osteomyelitis, diabetic foot, sepsis sp3 Forms: - Medication Reconciliation Form sp3 - SBAR form sp3 - Leadership Thank You Letter sp3 Signatures: Dispatcher [employer] EDMS Fatoumata Valdivia bd Nessa Palma RN SUBHASH dw Coty Rice, RN SUBHASH iw Lorena Mike RN RN Mohan Souza MD MD sp3 Kathleen Plascencia RN RN me1 Alexia Adams RN RN tm6 Corrections: (The following items were deleted from the chart) 10:41 10:41 BLOOD CULTURE*+BA.LAB.BRZ ordered. EDMS EDMS 10:41 10:41 CBC+H.LAB.BRZ ordered. EDMS EDMS 10:41 10:41 COMPREHENSIVE METABOLIC PANEL+C.LAB.BRZ ordered. EDMS EDMS 10:41 10:41 LACTATE+C.LAB.BRZ ordered. EDMS EDMS 10:41 10:41 Foot Right 3 View+RAD.RAD.BRZ ordered. EDMS EDMS 13:00 11:44 Telemetry/MedSurg (Inpatient) sp3 bd 13:00 11:44 sp3 bd 15: 13:00 BR ER HOLD bd dw 15:21 13:00 ERHOLD- bd dw
[2024-02-04 11:56] LABS: Blood Morphology Comment NOT SEEN (NOT SEEN); Platelet Estimate INCR; Polychromasia SLIGHT; White Blood Cell Scan OK (OK)
[2024-02-04] MEDS ORDERED: NA CHLORIDE 0.9% 1,000 ML ONE ×2 (12:08→14:11)
--- NOTE | 2024-02-04 12:08 | P.HP ---
Certification for Inpatient Patient admitted to: Inpatient With expected LOS: >2 Midnights <Debra Chowconcepcion Marinelli - Last Filed: 02/04/24 19:01> Patient History Date of Service: 02/04/24 Reason for admission: osteomyelitis, DM foot History of Present Illness: Mr. Stock is a 48-year-old male with a history of diabetes and hypertension status post right toe amputation now presents with recurrent diabetic wound at the same site for the last 2 to 3 days. Patient states yesterday he felt a "pop" had some drainage. Denies fever, shortness of breath, or vomiting. States his blood sugars have not been markedly elevated. He has seen Dr. Murrieta in the past and had a right great toe amputation. He has radiological evidence of osteomyelitis. He will be admitted for IV antibiotics and consultation with Dr. Murrieta. Of note, he has a history of bigeminy so will have cardiac clearance for surgery. Dr. Grant consulted. Home medications list reviewed: Yes - Past Medical/Surgical History Has patient received pneumonia vaccine in the past: No Diabetic: Yes -: IDDM -: Neuropathy -: Sleep apnea -: Hypertension -: Right great toe partial-amputation -: Right knee replacement -: Excisional subQ debridement necrotic wound left thigh -: L foot surgery Psychosocial/ Personal History: Patient is . - Family History Mother -: Hypertension, Diabetes Father -: Diabetes - Social History Smoking Status: Never smoker Alcohol use: Yes CD- Drugs: No Caffeine use: No Place of Residence: Home <ChowMaribell Marinelli - Last Filed: 02/04/24 19:01> Date of Service: 02/04/24 <Neil Mendiola - Last Filed: 02/04/24 19:23> Allergies No Known Drug Allergies Allergy (Verified 02/04/24 16:42) Unknown Home Medications: Metformin HCl [Metformin ER Osmotic] 1,000 mg PO BID 02/06/17 Insulin Glargine,Hum.rec.anlog [Lantus] 30 units SQ BEDTIME 09/05/20 Atorvastatin Calcium 40 mg PO DAILY 10/24/21 Dapagliflozin Propanediol [Farxiga] 10 mg PO DAILY 10/24/21 Lisinopril [Zestril] 2.5 mg PO DAILY 10/24/21 Metoprolol Succinate 25 mg PO DAILY 02/04/24 Semaglutide [Ozempic] 2 mg EVERY 7TH DAY 02/04/24 Review of Systems 10-point ROS is otherwise unremarkable Musculoskeletal: As per HPI Integumentary: As per HPI <Maribell Chow - Last Filed: 02/04/24 19:01> Physical Examination - Studies Laboratory Data (last 24 hrs) 02/04/24 02/04/24 11:10 11:10 WBC 16.60 H Hgb 9.3 L Hct 29.0 L Plt Count 665 H Sodium 127 L Potassium 3.7 BUN 15 Creatinine 1.38 H Glucose 274 H Total Bilirubin 1.3 H AST 20 ALT 43 Alkaline Phosphatase 307 H <Maribell Chow - Last Filed: 02/04/24 19:01> - Studies Laboratory Data (last 24 hrs) 02/04/24 02/04/24 11:10 11:10 WBC 16.60 H Hgb 9.3 L Hct 29.0 L Plt Count 665 H Sodium 127 L Potassium 3.7 BUN 15 Creatinine 1.38 H Glucose 274 H Total Bilirubin 1.3 H AST 20 ALT 43 Alkaline Phosphatase 307 H <Neil Mendiola - Last Filed: 02/04/24 19:23> Assessment and Plan - Plan Osteomyelitis right foot Consult surgery IV antibiotic Diabetes Glucose monitoring with SSI Hypertension Continue metoprolol 25 mg p.o. daily Monitor and trend Hyponatremia Pseudo question Aggressive glucose control Monitoring IV hydration DONTRELL secondary to dehydration IV hydration Monitor and trend Normochromic/normocytic anemia probably of chronic disease Iron studies VTE/GI prophylaxis Discharge Plan: Home Plan to discharge in: Greater than 2 days - Advance Directives Does patient have a Living Will: No Does patient have a Durable POA for Healthcare: No - Code Status/Comfort Care Code Status Assessed: Yes (Full) <ClaudineMaribellconcepcion Marinelli - Last Filed: 02/04/24 19:01> - Plan Pt seen and examined. I agree with the note by the HARNESS MENDER. Pt is a 48 yo male with past medical history of DM II and Htn who presents with right foot wound / infection for the past 2 -3 days. Pt reports some serous drainage from the site of infection. He denies any fever or chills. On admission, lab studies show wbc 16.6, Hgb 9.3, K 3.7, Cr 1.38, glucose 274. At bedside, pt is in NAD. A/P: Sepsis 2/2 diabetic foot osteomyelitis: Will continue iv vanc and zosyn. F/u blood and wound cx. MRI of right foot shows Osteomyelitis. Consulted Gen surgeon. Hyponatremia: Na is 127. Likely due to hypovolemia. Will give gentle hydration and monitor Na level. Htn: Continue home med DM II: Continue accuchek, SSI and ADA diet. DVT ppx: SCD Code: full <Neil Mendiola - Last Filed: 02/04/24 19:23>
[2024-02-04] MEDS ORDERED: ACETAMINOPHEN 325 MG TABLET PO PRN (12:19)
[2024-02-04] MEDS ORDERED: MORPHINE 4 MG/ML SYR IV PRN (12:19)
[2024-02-04] MEDS: NA CHLORIDE 0.9% 1,000 ML IV SCH (13:00)
[2024-02-04 13:34] VITALS: BMI 27.9
[2024-02-04] MEDS: VANCOMYCIN 1 GM in NA CHLORIDE 0.9% 250 ML IVPB SCH (14:00)
--- NOTE | 2024-02-04 15:30 | RAD REPORT ---
EXAM DESCRIPTION: MRIFoot Right Wo Cont02/04/2024 3:14 pm CLINICAL HISTORY: Right foot pain COMPARISON: February 04, 2024 x-ray TECHNIQUE: Axial, sagittal and coronal magnetic resonance imaging of the right foot was obtained. FINDINGS: Abnormal signal involves all first metatarsal with fluid surrounding the distal first meta tarsal. Air is seen within adjacent soft tissues. Abnormal signal involves the adjacent sesamoid. Abnormal signal involves almost all the second metatarsal and second proximal phalanx. Abnormal signa l involves the proximal aspect of second middle phalanx. Bony destruction is noted. Abnormal signal involves proximal calcaneus and midfoot. IMPRESSION: Extensive osteomyelitis first metatarsal and second digit Abnormal signal calcaneus and midfoot could be degenerative in nature or additional osteomyelitis
--- NOTE | 2024-02-04 17:22 | P.CNS ---
Date of Consult: 02/04/24 Chief Complaint: osteomyelitis, DM foot History of Present Illness: Patient with PMH of HTN, DM presented with osteomyelitis, cardiology was consulted for clearance, patient denies chest pain, no SOB, no palpitations, no syncope. Allergies No Known Drug Allergies Allergy (Verified 02/04/24 16:42) Unknown Home medications list reviewed: Yes Home Medications: Metformin HCl [Metformin ER Osmotic] 1,000 mg PO BID 02/06/17 Insulin Glargine,Hum.rec.anlog [Lantus] 30 units SQ BEDTIME 09/05/20 Atorvastatin Calcium 40 mg PO DAILY 10/24/21 Dapagliflozin Propanediol [Farxiga] 10 mg PO DAILY 10/24/21 Lisinopril [Zestril] 2.5 mg PO DAILY 10/24/21 Metoprolol Succinate 25 mg PO DAILY 02/04/24 Semaglutide [Ozempic] 2 mg EVERY 7TH DAY 02/04/24 - Past Medical/Surgical History Diabetic: Yes -: IDDM -: Neuropathy -: Sleep apnea -: Hypertension -: Right great toe partial-amputation -: Right knee replacement -: Excisional subQ debridement necrotic wound left thigh -: L foot surgery Psychosocial/ Personal History: Patient is . - Family History Mother Medical History: Hypertension, Diabetes Father Medical History: Diabetes - Social History Smoking Status: Never smoker Alcohol use: Yes CD- Drugs: No Caffeine use: No Place of Residence: Home Review of Systems 10-point ROS is otherwise unremarkable Physical Examination Temp Pulse Resp BP Pulse Ox 98.4 F 88 19 138/73 02/04/24 10:31 02/04/24 16:16 02/04/24 16:16 02/04/24 16:16 General: Alert, In no apparent distress HEENT: Atraumatic, PERRLA, Mucous membr. moist/pink, EOMI, Sclerae nonicteric Neck: Supple, 2+ carotid pulse no bruit, No LAD, Without JVD or thyroid abnormality Respiratory: Clear to auscultation bilaterally, Normal air movement Cardiovascular: Regular rate/rhythm, Normal S1 S2 Gastrointestinal: Normal bowel sounds, No tenderness Musculoskeletal: No tenderness Integumentary: No rashes Neurological: Normal gait, Normal speech, Normal tone, Normal affect Lymphatics: No axilla or inguinal lymphadenopathy Laboratory Data (last 24 hrs) 02/04/24 02/04/24 11:10 11:10 WBC 16.60 H Hgb 9.3 L Hct 29.0 L Plt Count 665 H Sodium 127 L Potassium 3.7 BUN 15 Creatinine 1.38 H Glucose 274 H Total Bilirubin 1.3 H AST 20 ALT 43 Alkaline Phosphatase 307 H - Problems (1) Encounter for pre-operative cardiovascular clearance Current Visit: Yes Status: Acute Plan: Patient is active and can do more than 4 METs without cardiac symptoms, would recommend getting an echo prior to surgery, if normal then can proceed as low cardiac risk. (2) Bigeminal rhythm Current Visit: Yes Status: Acute Plan: plan is to increase Toprol XL to 50 mg daily, can be done after surgery. (3) Hypertension Current Visit: No Status: Chronic Plan: increase Toprol to 50 mg daily. stop lisinopril. Qualifiers: Hypertension type: primary hypertension Qualified Code(s): I10 - Essential (primary) hypertension
[2024-02-04 17:27] LABS: Specific Gravity 1.022 (1.005-1.030); Sqamous Epithelial <5 /HPF (None Seen); Urine Bacteria <20 /HPF (<20); Urine Bilirubin NEGATIVE (Negative); Urine Blood Negative (Negative); Urine Clarity Turbid (Clear); Urine Color Yellow (Yellow); Urine Culture Reflex Order NOT NEEDED; Urine Glucose 4+ (Over) (Negative); Urine Ketones NEGATIVE (Negative); Urine Microscopic Reflex YN ORDER UMIC; Urine Nitrite NEGATIVE (Negative); Urine Protein 1+ (Negative); Urine RBC <5 /HPF (None Seen); Urine Urobilinogen 1+ (Normal); Urine WBC <5 /HPF (<5)
[2024-02-04] MEDS: HEPARIN 5000 UNIT/ML 1 ML VIAL SQ SCH (17:36)
[2024-02-04] MEDS: INSULIN REGULAR (HUMAN) 100 UNIT/ML SQ SCH (17:36)
[2024-02-04] MEDS: ATORVASTATIN 40 MG TAB PO SCH (20:02)
[2024-02-04] MEDS: PIPER TAZO 3.375 GM in NA CHLORIDE 0.9% 100 ML IV SCH (20:02)
[2024-02-04] MEDS: Mupirocin NASAL 2 APPL/1 GM TUBE NAS SCH (20:03)
[2024-02-05] MEDS: METOPROLOL XL 25 MG TAB PO SCH (05:12)
[2024-02-05 08:01] LABS: Absolute Lymphocytes (CBC) 1.4 K/uL (0.7-4.9); Absolute Monocytes 0.7 K/uL (0.1-1.3); Absolute Neutrophil 8.6 K/uL (1.8-8.0); Basophils % 0.3 % (0-1.3); Eosinophils % 0.4 % (0-4.4); Hematocrit 26.4 % (39.6-49.0); Hemoglobin 8.7 g/dL (13.6-17.9); Lymphocytes % 12.8 % (15.3-44.8); MCH 29.2 pg (27.0-35.0); MCHC 32.8 g/dL (32.0-36.0); MCV 88.9 fL (80-100); MPV 7.3 fL (7.6-11.3); Monocytes % 6.6 % (3.3-12.3); Neutrophils % 79.9 % (41.7-73.7); Platelets 599 thou/uL (152-406); RBC Red Blood Cell Count 2.97 M/uL (4.33-5.43); Red Cell Distribution Width 14.4 % (12.1-15.2)
[2024-02-05 08:18] LABS: Albumin/Globulin Ratio 0.3 (1.1-1.8); Anion Gap 7.9 mEq/L (5.0-15.0); Ferritin 251.8 ng/mL (26-388); Globulin 6.4 g/dL (2.3-3.5); Magnesium 1.7 mg/dL (1.6-2.4); Phosphorus 2.6 mg/dL (2.5-4.9); Potassium 3.9 mEq/L (3.5-5.1); Protein, Total 8.4 g/dL (6.4-8.2)
[2024-02-05] MEDS ORDERED: LIDOCAINE 1% MPF 5 ML VIAL ONE (10:46)
[2024-02-05] MEDS ORDERED: FENTANYL CITR 100 MCG/2 ML ONE (10:46)
[2024-02-05] MEDS ORDERED: MIDAZOLAM HCL 2 MG/2 ML INJ ONE (10:46)
[2024-02-05] MEDS ORDERED: propofoL 200 MG/20 ML VIAL IV ONE (10:46)
--- NOTE | 2024-02-05 11:03 | P.PN ---
Subjective Date of Service: 02/05/24 Chief Complaint: osteomyelitis, DM foot Subjective: No new changes (right foot with increased warmth, malodorous discharge. Will need ECHO clearance prior to OR. ECHO to be obtained at 0800) <Maribell Chow - Last Filed: 02/05/24 10:58> Date of Service: 02/05/24 <Neil Mendiola - Last Filed: 02/05/24 12:13> Review of Systems 10-point ROS is otherwise unremarkable General: Malaise Musculoskeletal: As per HPI Integumentary: As per HPI <ClaudineMaribell Marinelli - Last Filed: 02/05/24 10:58> Physical Examination - Vital Signs Temperature: 99.0 F Blood Pressure: 142/73 Pulse: 88 Respirations: 20 Pulse Ox (%): 98 - Physical Exam General: Alert, In no apparent distress, Oriented x3 HEENT: Atraumatic, Normocephalic Neck: Supple Respiratory: Normal air movement Cardiovascular: Regular rate/rhythm, Abnormal pulses Capillary refill: <2 Seconds Gastrointestinal: Normal bowel sounds Musculoskeletal: Clubbing, Swelling, Erythema, Tenderness, Warmth, Other (malodorous discharge to right anterior foot/ ankle warm) Integumentary: Diabetic ulcer Neurological: Normal speech, Normal tone, Normal affect Lymphatics: No axilla or inguinal lymphadenopathy External genitalia: Deferred Rectal: Deferred - Studies Laboratory Data (last 24 hrs) 02/04/24 02/04/24 11:10 11:10 WBC 16.60 H Hgb 9.3 L Hct 29.0 L Plt Count 665 H Sodium 127 L Potassium 3.7 BUN 15 Creatinine 1.38 H Glucose 274 H Total Bilirubin 1.3 H AST 20 ALT 43 Alkaline Phosphatase 307 H <Maribell Chow - Last Filed: 02/05/24 10:58> Assessment And Plan - Plan Osteomyelitis right foot Consult surgery - Dr. Murrieta plans to take pt to OR today IV antibiotics Consult Dr. Grant for cardiac clearance to - Request ECHO prior to OR. ECHO at 8am. Dr. Murrieta aware. Diabetes Glucose monitoring with SSI Hypertension Continue metoprolol 25 mg p.o. daily, will increase to 50mg po daily post surgery per Dr. Grant Monitor and trend Hyponatremia Pseudo question - improved to 131 today Aggressive glucose control Monitoring IV hydration DONTRELL secondary to dehydration IV hydration 1.38 to 1.11 Monitor and trend Normochromic/normocytic anemia probably of chronic disease Iron studies slight drop in Hgb VTE/GI prophylaxis Discharge Plan: Home Plan to discharge in: Greater than 2 days - Code Status/Comfort Care Code Status Assessed: Yes (full) Time Spent Managing PTS Care (In Minutes): 28 <Maribell Chow - Last Filed: 02/05/24 10:58> - Plan Pt seen and examined. I agree with the note by the [employer]UC[employer] RE[employer]AMATION ENGINEER. Continue metoprolol for bigeminal rhythm. Will f/u Echo. Will continue acccuehk, SSI, lantus 35u BID. Monitor sodium due to pseudohyponatremia. <Neil Mendiola - Last Filed: 02/05/24 12:13>
[2024-02-05] MEDS ORDERED: EPHEDRINE SULF 50 MG/ML VIAL ONE (11:21)
--- NOTE | 2024-02-05 11:41 | RAD REPORT ---
EXAM DESCRIPTION: RAD - Chest Single View - 02/05/2024 12:12 am CLINICAL HISTORY: The patient is 48 years old and is Male; PICC placement TECHNIQUE: Frontal view of the chest. COMPARISON: No relevant prior studies available. FINDINGS: LUNGS: Mild interstitial prominence is present throughout the lungs. There is no lobar c onsolidation. PLEURAL SPACE: Unremarkable. No pneumothorax. HEART: Unremarkable. No cardiomegaly. MEDIASTINUM: Unremarkable. Normal mediastinal contour. BONES/JOINTS: Multilevel degenerative change of the spine is present. No acute fracture. TUBES, LINES AND DEVICES: A right upper extremity PICC is present with the tip in the SVC. UPPER ABDOMEN: Unremarkable as visualized. IMPRESSION: A right upper extremity PICC is present with the tip in the SVC. Electronically signed by: Samantha Petersen MD 02/05/2024 12:23 AM CDT RP Due to temporary technical issues with the PACS/Fluency reporting system, reports are being signed by the in house radiologist without review as a courtesy to ensure prompt reporting. The interpreting r adiologist is fully responsible for the content of the report.
--- NOTE | 2024-02-05 11:45 | P.BOP ---
Preoperative diagnosis: diabetic necrotic infected right foot diabetic wound/ulcer Primary procedure: Excisional debridement down to bone right foot diabetic foot wound Secondary procedure: [id number] Estimated blood loss: <10cc Findings: pieces bones floating on a thru & thru wound from dorsum of foot to plantar Anesthesia: General Complications: None Transferred to: Recovery Room Condition: Good
[2024-02-05] MEDS: VANCOMYCIN 1.75 GM in NA CHLORIDE 0.9% 500 ML IVPB SCH (12:33)
--- NOTE | 2024-02-05 12:38 | CON ---
Date of Consultation: 02/05/2024 Diagnoses: Cellulitis, necrotic wound, diabetic foot ulcer, right foot. History Of Present Illness: This is a case of a 48-year-old patient with history of diabetes and mul tiple open amputations on the toes in the past, he now comes with 3-day history of a necrotic wound p resent, black, foul smelling on the metatarsal region of the medial side of the foot. He does not re call any trauma. He said that just 3 days ago, it was starting to hurt and then after that everythin g developed into this blackness and foul smelling. He came to the ER, got admitted to the hospital a nd a surgical consult was obtained for debridement. He was offered in the past amputation of that ar ea due to multiple problems, but he has been able to keep his foot, so far. Family History: Diabetes. Social History: He does not smoke. Drink alcohol occasionally. Medical Problems: Include insulin-dependent diabetes, neuropathy, sleep apnea, hypertension. Past Surgical History: Include right great toe amputation, knee replacement on the right side, multi ple debridements of foot wounds. Review of Systems: See HPI. Ten points otherwise unremarkable. Physical Examination: Vital Signs: Reviewed. General: Patient is awake and alert. HEENT: Pupils are equal and reactive. Anicteric. Neck: Supple. Chest: Clear. Heart: S1, S2. Abdomen: Soft and depressible. No guarding or rebound. Rectal: Deferred. Extremities: Diminished pulses bilaterally. Patient has multiple amputation of the right foot toes. He has an open wound over that region medial aspect of the foot, necrotic tissue present, foul smel ling. It goes down to tendons. He will need debridement. Laboratory Data: Imaging of the right foot specifically MRI shows extensive osteomyelitis of first m etatarsal and second digit, once again, consistent with osteomyelitis. Blood work shows a WBC count of 16, hemoglobin of 9.3, platelets of 665, potassium is 3.9, and glucos e 122. Assessment: 48-year-old patient who came to us with cellulitis, necrotic diabetic ulcer of right diann t. He only wanted the cleaning at this moment. So, we are going to do subcutaneous debridement with benefits, alternatives, and risks including, but not limited to, infection, bleeding, damage to иван cent structures, anesthesia complication, nonhealing wound, KS, and even . He also understands this may not relieve any symptoms. He might need more than one surgical intervention. He understood , signed a consent. He does not want amputation at this moment. He is not ready for it. He underst and the long-term treatment of this including wound care, treatment of his osteomyelitis, so we are g oing to just clean him and let him just see the delineation happen and then we will bring the options once again in few more days, once the area mature. NOHEMI/RAFAEL Voice ID: [id number] Report ID: [id number]
--- NOTE | 2024-02-05 13:08 | OP ---
Date of Procedure: 02/05/2024 Surgeon: Shakir Murrieta MD Preoperative Diagnosis: Diabetic necrotic infected right foot diabetic wound. Postoperative Diagnosis: Diabetic necrotic infected right foot diabetic wound. Procedure: Excisional debridement down to bone of right foot and necrotic foot wound, this is about 5 x 5 x 3 cm. Findings: Patient has few ulcers, but they are connected, one is in the lateral dorsum region, anoth er one in the plantar region. Once you explore that area, they connect. There are pieces of bone fl oating on the wound itself that which is picked up and sent for biopsy. This bone was removed. It j ust had destructive osteomyelitis and then the area was cleaned with pulse lavage. Complications: None. Indications: This is a case of a 48-year-old patient known by the medical service in this hospital d ue to multiple episode of diabetic foot ulcers, previous amputations, who now came with foul smelling , purulent discharge, two ulcers, one of the dorsum medial side and another one in the plantar aspect of the foot, although once explored, we noticed as one entire wound. He was fully explained the nee d for a debridement at least if not an amputation. He had an MRI. He understands the findings inclu ding bone infection. He still want just the debridement. So benefits, alternatives, and risks of de bridement fully explained, which include, but not limited to, infection, bleeding, damage to adjacent structures, anesthesia complication, nonhealing wound, SD, and even . He also understands this may not relieve any symptoms. He might need more than one surgical intervention. He understood, si gned a consent. Description Of The Operation: The patient was brought to the operating room, placed in supine positi on. Anesthesia was done without complication. Foot area was prepped and draped in a sterile fashion . A time-out was called. Local anesthetic was applied followed by a sharp incision with necrotic ti ssue and foul smelling tissue. Purulent discharge was found from inside of the foot. This wound con nects from the dorsum into the plantar surface through and through tendons and bone and particularly there are some pieces of metatarsal bones floating in the wound and had to be removed from the rest o f the subcutaneous tissue and we sent that as part of the specimen. Area was irrigated. Pulse lavag e was done with several liters until completely clean. Hemostasis was obtained and then the area was packed with iodoform half an inch. Patient tolerated the procedure well. Patient covered with ster ile dressings and then sent to recovery room in stable condition. Sponge counts and instrument count s correct. NOHEMI/RAFAEL Voice ID: [id number] Report ID: [id number]
--- NOTE | 2024-02-05 13:53 | ECHO ---
HEIGHT: 5 ft 10 in WEIGHT: 195 lb 0 oz DATE OF STUDY: 02/04/[address]: Abrahan Grant MD 2-DIMENSIONAL: YES M.MODE: YES DOPPLER: YES COLOR FLOW: YES TDS: PORTABLE: YES DEFINITY: BUBBLE STUDY: DIAGNOSIS: CARDIAC CLEARANCE CARDIAC HISTORY: CATHERIZATION: NO SURGERY: NO PROSTHETIC VALVE: NO PACEMAKER: NO MEASUREMENTS (cm) DIASTOLIC (NORMALS) SYSTOLIC (NORMALS) IVSd 1.1 (0.6-1.2) LA Diam 3.3 (1.9-4.0) LVEF 62% LVIDd 5.2 (3.5-5.7) LVIDs 3.5 (2.0-3.5) %FS 34% LVPWd 1.1 (0.6-1.2) Ao Diam 3.0 (2.0-3.7) 2 DIMENSIONAL ASSESSMENT: RIGHT ATRIUM: NORMAL LEFT ATRIUM: NORMAL RIGHT VENTRICLE: NORMAL LEFT VENTRICLE: NORMAL TRICUSPID VALVE: NORMAL MITRAL VALVE: NORMAL PULMONIC VALVE: NORMAL AORTIC VALVE: NORMAL PERICARDIAL EFFUSION: NONE AORTIC ROOT: NORMAL LEFT VENTRICULAR WALL MOTION: NORMAL DOPPLER/COLOR FLOW: NORMAL COMMENTS: 1. NORMAL LEFT VENTRICULAR SYSTOLIC FUNCTION, EJECTION FRACTION 55-60%, NORMAL WALL MOTION 2. NORMAL DIASTOLIC FUNCTION TECHNOLOGIST: NAPOLEON HANSON
[2024-02-05] MEDS: POTASSIUM CL SA 10 MEQ TAB PO ONE (14:05)
[2024-02-05] MEDS: MAGNESIUM SULFATE 1 gm IVPB 1 GM/100 ML BAG IV ONE (14:05)
[2024-02-05] MEDS: INSULIN REGULAR (HUMAN) 100 UNIT/ML SQ SCH (16:40)
--- NOTE | 2024-02-05 18:04 | P.PN ---
Subjective Date of Service: 02/05/24 Chief Complaint: osteomyelitis, DM foot Subjective: No new changes, No C/O voiced, Tolerating diet, Ambulating, Improving Review of Systems 10-point ROS is otherwise unremarkable Physical Examination - Vital Signs Temperature: 99.1 F Blood Pressure: 136/69 Pulse: 93 Respirations: 20 Pulse Ox (%): 96 - Physical Exam General: Alert, In no apparent distress HEENT: Atraumatic, PERRLA, EOMI Neck: Supple, JVD not distended Respiratory: Clear to auscultation bilaterally, Normal air movement Cardiovascular: Regular rate/rhythm, Normal S1 S2 Gastrointestinal: Normal bowel sounds, No tenderness Musculoskeletal: No tenderness Integumentary: No rashes Neurological: Normal speech, Normal tone, Normal affect Lymphatics: No axilla or inguinal lymphadenopathy - Studies Medications List Reviewed: Yes Assessment And Plan - Current Problems (Diagnosis) (1) Encounter for pre-operative cardiovascular clearance Current Visit: Yes Status: Acute Plan: Patient had an echo done that shows normal EF, patient was cleared as low cardiac risk, had procedure done and tolerated it well. (2) Bigeminal rhythm Current Visit: Yes Status: Acute Plan: Increase Toprol XL to 50 mg daily. Outpatient follow up for event monitor (3) Hypertension Current Visit: No Status: Chronic Plan: increase Toprol to 50 mg daily. stop lisinopril. Qualifiers: Hypertension type: primary hypertension Qualified Code(s): I10 - Essential (primary) hypertension
[2024-02-06 06:44] LABS: Absolute Basophils 0.1 K/uL (0-0.5); Absolute Eosinophils 0.1 K/uL (0-0.5); Absolute Lymphocytes (CBC) 1.4 K/uL (0.7-4.9); Absolute Monocytes 0.6 K/uL (0.1-1.3); Absolute Neutrophil 7.3 K/uL (1.8-8.0); Basophils % 0.5 % (0-1.3); Eosinophils % 0.7 % (0-4.4); Hematocrit 24.5 % (39.6-49.0); Hemoglobin 8.1 g/dL (13.6-17.9); Lymphocytes % 15.2 % (15.3-44.8); MCH 29.5 pg (27.0-35.0); MCHC 33.2 g/dL (32.0-36.0); MCV 88.9 fL (80-100); MPV 7.1 fL (7.6-11.3); Monocytes % 6.1 % (3.3-12.3); Neutrophils % 77.5 % (41.7-73.7); Platelets 575 thou/uL (152-406); RBC Red Blood Cell Count 2.76 M/uL (4.33-5.43); Red Cell Distribution Width 14.3 % (12.1-15.2)
[2024-02-06 06:48] LABS: Albumin 1.9 g/dL (3.4-5.0); Albumin/Globulin Ratio 0.3 (1.1-1.8); Anion Gap 8.1 mEq/L (5.0-15.0); Bilirubin Total 0.8 mg/dL (0.2-1.0); Globulin 6.2 g/dL (2.3-3.5); Magnesium 1.8 mg/dL (1.6-2.4); Phosphorus 2.2 mg/dL (2.5-4.9); Potassium 4.1 mEq/L (3.5-5.1); Protein, Total 8.1 g/dL (6.4-8.2)
[2024-02-06] MEDS: MAGNESIUM SULFATE 1 gm IVPB 1 GM/100 ML BAG IV ONE (08:32)
[2024-02-06] MEDS: POTASS/SODIUM PHOSPHATE 1 PKT POWD.PACK PO SCH (08:33)
--- NOTE | 2024-02-06 12:19 | P.PN ---
Subjective Date of Service: 02/06/24 Chief Complaint: osteomyelitis, DM foot Subjective: Tolerating diet, Improving Review of Systems Respiratory: Unremarkable Cardiovascular: Unremarkable Gastrointestinal: Unremarkable Physical Examination - Vital Signs Temperature: 97.5 F Blood Pressure: 118/58 Pulse: 85 Respirations: 16 Pulse Ox (%): 95 - Physical Exam General: Alert, In no apparent distress, Oriented x3, Cooperative HEENT: PERRLA, EOMI Neck: Supple Respiratory: Normal air movement Gastrointestinal: Soft and benign Integumentary: Diabetic ulcer (intact surgical site) - Studies Medications List Reviewed: Yes Assessment And Plan - Plan cont wet to dry NS F/u at wound healing center after discharge home
--- NOTE | 2024-02-06 12:59 | EKG ---
Test Date: 2024-02-04 Test Time: 11:25:42 Transitional Living Specialist: ESSENCE MEASUREMENT RESULTS: Intervals: Rate: 93 ME: 164 QRSD: 94 QT: 392 QTc: 487 [place]: P: 82 ME: 164 QRS: 9 T: 84 INTERPRETIVE STATEMENTS: Sinus rhythm with frequent premature ventricular complexes Prolonged QT Abnormal ECG Compared to ECG 10/13/2022 13:50:02 Prolonged QT interval now present Left-axis deviation no longer present Electronically Signed On 02-06-24 12:56:48 CDT by Abrahan Grant
--- NOTE | 2024-02-06 14:49 | P.PN ---
Subjective Date of Service: 02/06/24 Chief Complaint: osteomyelitis, DM foot Pt is resting comfortably in bed. S/P wound debridement by Dr. Murrieta. He is getting iv abx. No other complaints. Review of Systems General: Unremarkable Eyes: Unremarkable ENT: Unremarkable Respiratory: Unremarkable Cardiovascular: Unremarkable Gastrointestinal: Unremarkable Genitourinary: Unremarkable Musculoskeletal: Unremarkable Integumentary: Lesions Neurological: Unremarkable Lymphatics: Unremarkable Physical Examination - Vital Signs Temperature: 97.5 F Blood Pressure: 118/58 Pulse: 85 Respirations: 16 Pulse Ox (%): 95 - Physical Exam General: Alert, In no apparent distress, Oriented x3 HEENT: Atraumatic, Normocephalic, PERRLA Neck: Supple, 2+ carotid pulse no bruit, JVD not distended Respiratory: Clear to auscultation bilaterally, Normal air movement Cardiovascular: No edema, Normal pulses, Regular rate/rhythm, Normal S1 S2 Capillary refill: <2 Seconds Gastrointestinal: Normal bowel sounds, Soft and benign, Non-distended Musculoskeletal: No clubbing, No swelling, No contractures Integumentary: No rashes, No breakdown, No significant lesion Neurological: Normal gait, Normal speech, Normal strength at 5/5 x4 extr, Normal tone, Sensation intact Lymphatics: No axilla or inguinal lymphadenopathy - Studies Medications List Reviewed: Yes Assessment And Plan - Plan Osteomyelitis right foot: S/p wound debridement. POD #1. Continue IVF and wound care. Will f/u culture sensitivity. Cardiology gave cardiac clearance. Bigeminal rhythm: Per EKG. Will continue metoprolol. Cardiology is following. Diabetes Melitus: Will continue accuchek, SSI and ADA diet. Htn; Continue metoprolol XL 50 mg p.o. daily. Pseudo-Hyponatremia: improved with improvement of hyperglycemia. Will monitor. Na is 132. Continue IVf DONTRELL secondary to dehydration: cr is 1.06 <- 1.11 <- 1.32. Will continue IVF, avoid, and monitor renal function. Normochromic/normocytic anemia probably of chronic disease: Hgb is 8.1. Will monitor H/H. Transfuse when Hgb < 7. DVT ppx: SCD Dispo: Pending hospital course.
[2024-02-07 06:15] LABS: Absolute Basophils 0.1 K/uL (0-0.5); Absolute Eosinophils 0.1 K/uL (0-0.5); Absolute Lymphocytes (CBC) 1.7 K/uL (0.7-4.9); Absolute Monocytes 0.5 K/uL (0.1-1.3); Absolute Neutrophil 7.6 K/uL (1.8-8.0); Basophils % 0.8 % (0-1.3); Eosinophils % 0.9 % (0-4.4); Hematocrit 23.5 % (39.6-49.0); Hemoglobin 8.1 g/dL (13.6-17.9); Lymphocytes % 17.4 % (15.3-44.8); MCH 30.2 pg (27.0-35.0); MCHC 34.4 g/dL (32.0-36.0); MCV 87.8 fL (80-100); MPV 6.9 fL (7.6-11.3); Monocytes % 4.8 % (3.3-12.3); Neutrophils % 76.1 % (41.7-73.7); Platelets 563 thou/uL (152-406); RBC Red Blood Cell Count 2.68 M/uL (4.33-5.43); Red Cell Distribution Width 14.2 % (12.1-15.2)
[2024-02-07 06:24] LABS: Albumin 1.7 g/dL (3.4-5.0); Albumin/Globulin Ratio 0.3 (1.1-1.8); Anion Gap 8.2 mEq/L (5.0-15.0); Bilirubin Total 0.5 mg/dL (0.2-1.0); Globulin 5.9 g/dL (2.3-3.5); Magnesium 1.8 mg/dL (1.6-2.4); Phosphorus 2.5 mg/dL (2.5-4.9); Potassium 4.2 mEq/L (3.5-5.1); Protein, Total 7.6 g/dL (6.4-8.2)
[2024-02-07] MEDS: MAGNESIUM SULFATE 1 gm IVPB 1 GM/100 ML BAG IV ONE (08:21)
--- NOTE | 2024-02-07 09:35 | P.DS ---
Admission Date: 02/04/24 Discharge Date: 02/07/24 Reason for Admission: osteomyelitis, DM foot Consultations: Dr. Lit Grant Procedures: Echocardiogram -normal EF OR washout of right foot and IV antibiotics Brief History of Present Illness: Mr. Stock is a 48-year-old male with a history of diabetes and hypertension status post right toe amputation now presents with recurrent diabetic wound at the same site for the last 2 to 3 days. Patient states yesterday he felt a "pop" had some drainage. Denies fever, shortness of breath, or vomiting. States his blood sugars have not been markedly elevated. He has seen Dr. Murrieta in the past and had a right great toe amputation. He has radiological evidence of osteomyelitis. He will be admitted for IV antibiotics and consultation with Dr. Murrieta. Of note, he has a history of bigeminy so will have cardiac clearance for surgery. Dr. Grant consulted. Hospital Course: Mr. Stock was seen by Dr. Grant for cardiac clearance secondary to his history of bigeminy. An echocardiogram was obtained and a normal EF was noted. Patient is to stop his lisinopril and increase his Toprol to 50 mg p.o. daily. He underwent an OR washout of his right foot. There is radiographic evidence of forefoot, midfoot, and calcaneal osteomyelitis. Microbiology shows gram negative rods on wound culture. Mr. Stock is not ready to undergo amputation and thus will need extensive IV therapy, hyperbarics, and repeat surgical intervention. He will be discharged with a PICC line, Rocephin 2 g IV piggyback daily x 6 weeks, a walker, and follow-up plan with Dr. Murrieta. <Maribell Chow - Last Filed: 02/07/24 17:05> Admission Date: 02/04/24 Discharge Date: 02/08/24 Hospital Course: Pt seen and examined. I agree with the note by the RN MEDICATION. Surgical culture is negative for any growth. Will dc pt with rocephin 2gm iv daily for 6 weeks. Ok to discharge pt. <Neil Mendiola - Last Filed: 02/08/24 21:49> Disposition: DC HOME/HOME HEALTH CARE Discharge Condition: GOOD Vital Signs/Physical Exam: Temp Pulse Resp BP Pulse Ox 97.3 F 91 H 17 126/58 L 96 08/30/24 08:00 02/07/24 08:00 02/07/24 08:00 02/07/24 08:00 02/07/24 08:00 General: Alert, In no apparent distress, Oriented x3 HEENT: Atraumatic, Normocephalic Neck: Supple, 2+ carotid pulse no bruit Respiratory: Clear to auscultation bilaterally Cardiovascular: Normal pulses, Regular rate/rhythm, Normal S1 S2 Capillary refill: <2 Seconds Gastrointestinal: Soft and benign Musculoskeletal: Other (Right foot with great toe amputation, surgical bandage status post OR washout that is clean, dry, and intact) Integumentary: No rashes Neurological: Normal speech, Normal tone, Normal affect Lymphatics: No axilla or inguinal lymphadenopathy External genitalia: Deferred Rectal: Deferred Laboratory Data at Discharge: WBC 10.00 thou/uL (4.3-10.9) 02/07/24 06:00 Hgb 8.1 g/dL (13.6-17.9) L 02/07/24 06:00 Hct 23.5 % (39.6-49.0) L 02/07/24 06:00 Plt Count 563 thou/uL (152-406) H 02/07/24 06:00 Sodium 133 mEq/L (136-145) L 02/07/24 06:00 Potassium 4.2 mEq/L (3.5-5.1) 02/07/24 06:00 BUN 17 mg/dL (7-18) 02/07/24 06:00 Creatinine 1.08 mg/dL (0.70-1.30) 02/07/24 06:00 Glucose 172 mg/dL (74-106) H 02/07/24 06:00 Phosphorus 2.5 mg/dL (2.5-4.9) 02/07/24 06:00 Magnesium 1.8 mg/dL (1.6-2.4) 02/07/24 06:00 Total Bilirubin 0.5 mg/dL (0.2-1.0) 02/07/24 06:00 AST 35 U/L (15-37) 02/07/24 06:00 ALT 41 U/L (16-61) 02/07/24 06:00 Alkaline Phosphatase 343 U/L (45-117) H 02/07/24 06:00 Triglycerides 78 mg/dL (<150) 02/05/24 07:37 Cholesterol 125 mg/dL (<200) 02/05/24 07:37 HDL Cholesterol 27 mg/dL (40-60) L 02/05/24 07:37 Cholesterol/HDL Ratio 4.63 02/05/24 07:37 <Chow,Maribell Yves - Last Filed: 02/07/24 17:05> Vital Signs/Physical Exam: Temp Pulse Resp BP Pulse Ox 97.3 F 91 H 17 126/58 L 96 02/07/24 08:00 02/07/24 09:37 02/07/24 08:00 02/07/24 09:37 02/07/24 08:00 Laboratory Data at Discharge: WBC 10.00 thou/uL (4.3-10.9) 02/07/24 06:00 Hgb 8.1 g/dL (13.6-17.9) L 02/07/24 06:00 Hct 23.5 % (39.6-49.0) L 02/07/24 06:00 Plt Count 563 thou/uL (152-406) H 02/07/24 06:00 Sodium 133 mEq/L (136-145) L 02/07/24 06:00 Potassium 4.2 mEq/L (3.5-5.1) 02/07/24 06:00 BUN 17 mg/dL (7-18) 02/07/24 06:00 Creatinine 1.08 mg/dL (0.70-1.30) 02/07/24 06:00 Glucose 172 mg/dL (74-106) H 02/07/24 06:00 Phosphorus 2.5 mg/dL (2.5-4.9) 02/07/24 06:00 Magnesium 1.8 mg/dL (1.6-2.4) 02/07/24 06:00 Total Bilirubin 0.5 mg/dL (0.2-1.0) 02/07/24 06:00 AST 35 U/L (15-37) 02/07/24 06:00 ALT 41 U/L (16-61) 02/07/24 06:00 Alkaline Phosphatase 343 U/L (45-117) H 02/07/24 06:00 Triglycerides 78 mg/dL (<150) 02/05/24 07:37 Cholesterol 125 mg/dL (<200) 02/05/24 07:37 HDL Cholesterol 27 mg/dL (40-60) L 02/05/24 07:37 Cholesterol/HDL Ratio 4.63 02/05/24 07:37 <Sosa Mendiolaantonettegabby Vaughn - Last Filed: 02/08/24 21:49> Diet: ADA Activity: Ad beto <Maribell Chow Yves - Last Filed: 02/07/24 17:05> <MarlenaGarychaz Mendes - Last Filed: 02/08/24 21:49> Home Medications: Metformin HCl [Metformin ER Osmotic] 1,000 mg PO BID 02/06/17 Insulin Glargine,Hum.rec.anlog [Lantus] 30 units SQ BEDTIME 09/05/20 Atorvastatin Calcium 40 mg PO DAILY 10/24/21 Dapagliflozin Propanediol [Farxiga] 10 mg PO DAILY 10/24/21 Lisinopril [Zestril] 2.5 mg PO DAILY 10/24/21 Metoprolol Succinate 25 mg PO DAILY 02/04/24 Semaglutide [Ozempic] 2 mg EVERY 7TH DAY 02/04/24 Physician Discharge Instructions: Mr. Stock was seen by Dr. Grant for cardiac clearance secondary to his history of bigeminy. An echocardiogram was obtained and a normal EF was noted. Patient is to stop his lisinopril and increase his Toprol to 50 mg p.o. daily. He underwent an OR washout of his right foot. There is radiographic evidence of forefoot, midfoot, and calcaneal osteomyelitis. Microbiology shows gram negative rods on wound culture. Mr. Stock is not ready to undergo amputation and thus will need extensive IV therapy, hyperbarics, and repeat surgical intervention. He will be discharged with a PICC line, Rocephin 2 g IV piggyback daily x 6 weeks, a walker, and follow-up plan with Dr. Murrieta. Followup: Shakir Murrieta MD [ACTIVE - CAN ADMIT] - Vaishali Todd NP [Primary Care Provider] -
[2024-02-07] MEDS: AMLODIPINE 2.5 MG TAB PO SCH (09:37)
[2024-02-07 10:09] VITALS: O2SAT 96
[2024-02-07] MEDS: CEFTRIAXONE 2,000 MG in NA CHLORIDE 0.9% 100 ML IV SCH (10:52)
[2024-02-07] MEDS ORDERED: VANCOMYCIN 2 GM in NA CHLORIDE 0.9% 500 ML IVPB SCH (12:00)
[2024-02-07 16:10] VITALS: BP 134/66; TEMP 97.4
== END 2024-02-07 17:54 | disposition home health service (06) | DRG 854 ==
LOC: ER 10:15 → ERHOLD 12:19 → 4TH 15:31
PROVIDERS: ADMIT Hospitalist; ATTEND Hospitalist
PROC: 0QBN0ZZ Excision of Right Metatarsal, Open Approach (ICD-10-PCS; principal; 2024-02-04)
PROC: 02HV33Z Insertion of Infusion Device into Superior Vena Cava, Percutaneous Approach (ICD-10-PCS; 2024-02-04)
DX: A41.9 Sepsis, unspecified organism (principal); E11.52 Type 2 diabetes mellitus with diabetic peripheral angiopathy with gangrene; E87.1 Hypo-osmolality and hyponatremia; N17.9 Acute kidney failure, unspecified; L03.115 Cellulitis of right lower limb; M86.171 Other acute osteomyelitis, right ankle and foot; E11.69 Type 2 diabetes mellitus with other specified complication; E11.40 Type 2 diabetes mellitus with diabetic neuropathy, unspecified; E11.65 Type 2 diabetes mellitus with hyperglycemia; E11.621 Type 2 diabetes mellitus with foot ulcer; L97.519 Non-pressure chronic ulcer of other part of right foot with unspecified severity; E86.0 Dehydration; D50.9 Iron deficiency anemia, unspecified; I10 Essential (primary) hypertension; I49.3 Ventricular premature depolarization; R00.8 Other abnormalities of heart beat; Z79.4 Long term (current) use of insulin; Z79.84 Long term (current) use of oral hypoglycemic drugs; Z89.411 Acquired absence of right great toe; Z96.651 Presence of right artificial knee joint; Z79.899 Other long term (current) drug therapy
CPT/HCPCS: 36415; 71045; 80053; 80061; 80202; 81001; 82728; 82947; 83540; 83605; 83735; 84100; 84443; 84484; 85025; 87040; 87070; 87075; 87077; 87185; 87186; 87205; 88304; 88311; 93005; 93306; 94010; 96365; 96366; 96367; 99285; J0696; J1644; J2001; J2250; J2543; J2704; J3010; J3475; J7030; J7040; J7050

== ENCOUNTER 2024-02-18 12:28 | Emergency (ER) | payer OTHER ==
[2024-02-18] MEDS ORDERED: ALTEPLASE 2 MG/VIAL IV ONE (13:01)
[2024-02-18] MEDS ORDERED: WATER FOR INJ,STERILE 10 ML ONE (13:02)
--- NOTE | 2024-02-18 13:51 | ER ---
Nurse's Notes [facility] Name: Maik Stock Age: 48 yrs Sex: Male : 1975 Arrival Date: 02/18/2024 Time: 12:28 Bed 11 Private MD: Diagnosis: Encounter for management of PICC line Presentation: 02/17 12:52 Chief complaint: Patient states: Picc line not flushing for the last 3 days. Home [facility] sent him to the ER. Coronavirus screen: Client denies travel out of the [place] in the last 14 days. Ebola Screen: Patient denies travel to an Ebola-affected area in the 21 days before illness onset. No symptoms or risks identified at this time. Initial Sepsis Screen: Does the patient meet any 2 criteria? No. Patient's initial sepsis screen is negative. Does the patient have a suspected source of infection? No. Patient's initial sepsis screen is negative. Risk Assessment: Do you want to hurt yourself or someone else? Patient reports no desire to harm self or others. Onset of symptoms was February 18, 2024. 12:52 Method Of Arrival: Ambulatory cm10 12:52 Acuity: JACQUE 4 cm10 Triage Assessment: 12:53 General: Appears in no apparent distress. comfortable, Behavior is calm, cooperative. cm10 Pain: Denies pain. Neuro: No deficits noted. Level of Consciousness is awake, alert, obeys commands, Oriented to person, place, time, situation, Appropriate for age. Respiratory: No deficits noted. Airway is patent Respiratory effort is even, unlabored, Respiratory pattern is regular, symmetrical. Historical: - Allergies: 12:53 No Known Allergies; cm10 - PMHx: 12:53 Diabetes - NIDDM; Hypertensive disorder; cm10 - PSHx: 12:53 toe amputation; cm10 - Immunization history:: Adult Immunizations up to date. - Infectious Disease History:: Denies. - Social history:: Smoking status: Patient denies any tobacco usage or history of. Screenin:57 [facility] ED Fall Risk Assessment (Adult) History of falling in the last 3 months, cm10 including since admission No falls in past 3 months (0 pts) Confusion or Disorientation No (0 pts) Intoxicated or Sedated No (0 pts) Impaired Gait No (0 pts) Mobility Assist Device Used No (0 pt) Altered Elimination No (0 pt) Score/Fall Risk Level 0 - 2 = Low Risk Oriented to surroundings, Maintained a safe environment, Hourly rounding (assess needs \T\ fall precautionary measures) done. Abuse screen: Denies threats or abuse. Denies injuries from another. Nutritional screening: No deficits noted. Tuberculosis screening: No symptoms or risk factors identified. Assessment: 13:57 Reassessment: Patient appears in no apparent distress at this time. No changes from cm10 previously documented assessment. Patient and/or family updated on plan of care and expected duration. Pain level reassessed. Vital Signs: 12:52 BP 111 / 53; Pulse 47; Resp 16; Temp 97.5; Pulse Ox 100% ; Weight 84.82 kg; Height 5 cm10 ft. 10 in. ; Pain 0/10; 12:52 Body Mass Index 26.83 (84.82 kg, 177.8 cm) cm10 12:52 Pain Scale: Adult cm10 ED Course: 12:32 Patient arrived in ED. im 12:53 Triage completed. cm10 12:54 Arm band placed on Patient placed in an exam room, on a stretcher. cm10 12:59 Naa Turpin FNP-C [facility]. kb 12:59 Mohan Souza MD is Attending Physician. kb 13:10 Accessed PICC line. Clean \T\ dry. Dressing intact. No blood return. Difficult to flush. cm10 13:52 Accessed Good blood return. Flushes easily. cm10 13:57 Patient has correct armband on for positive identification. Provided Education on: cm10 Follow-up instructions. 13:58 No provider procedures requiring assistance completed. Patient did not have IV access cm10 during this emergency room visit. Administered Medications: 13:10 Drug: Cathflo Activase IV Thrombolytics 2 mg IV Thrombolytics once; into each catheter cm10 lumen, may repeat once Route: IV Thrombolytics; 13:53 Follow up: Response: No adverse reaction; Marked relief of symptoms cm10 Medication: 13:58 VIS not applicable for this client. cm10 Outcome: 13:51 Discharge ordered by . kb 13:58 Discharged to home ambulatory, cm10 13:58 Condition: good 13:58 Discharge instructions given to patient, Instructed on discharge instructions, follow up and referral plans. Demonstrated understanding of instructions, follow-up care, 13:58 Patient left the ED. cm10 Signatures: Naa Turpin FNP-C FNP-Josefina Lora Clarissa, RN RN cm10 Corrections: (The following items were deleted from the chart) 13:52 13:51 Accessed PICC line. Clean \T\ dry. Dressing intact. Good blood return. Flushes cm10 easily. cm10 13:53 13:50 Response: No adverse reaction; Marked relief of symptoms cm10 cm10
--- NOTE | 2024-02-18 13:51 | EDPHYS ---
Physician Documentation [facility] Name: Maik Stock Age: 48 yrs Sex: Male : 1975 Arrival Date: 02/18/2024 Time: 12:28 Bed 11 Private MD: ED Physician Mohan Souza HPI: 02/17 13:48 This 48 yrs old Male presents to ER via Ambulatory with complaints of Picc kb line problem. 13:48 Pt is a 48 year old male who presents for picc line malfunction. states his PICC has kb not been flushing properly for 3 days. One port will not flush at all, one is difficult to flush. Denies any other complaints. Historical: - Allergies: 12:53 No Known Allergies; cm10 - PMHx: 12:53 Diabetes - NIDDM; Hypertensive disorder; cm10 - PSHx: 12:53 toe amputation; cm10 - Immunization history:: Adult Immunizations up to date. - Infectious Disease History:: Denies. - Social history:: Smoking status: Patient denies any tobacco usage or history of. ROS: 13:48 Constitutional: As per HPI kb Exam: 13:48 Constitutional: This is a well developed, well nourished patient who is awake, alert, kb and in no acute distress. Head/Face: Normocephalic, atraumatic. ENT: Moist Mucous membranes Cardiovascular: Regular rate Respiratory: Respirations even and unlabored. No increased work of breathing. Talking in full sentences Abdomen/GI: Soft, non-tender. No distention Skin: Warm, dry with normal turgor. Normal color. MS/ Extremity: Pulses equal, no cyanosis. Neurovascular intact. Full, normal range of motion. Neuro: Awake and alert, GCS 15, oriented to person, place, time, and situation. Moves all extremities. Normal gait. Vital Signs: 12:52 BP 111 / 53; Pulse 47; Resp 16; Temp 97.5; Pulse Ox 100% ; Weight 84.82 kg; Height 5 cm10 ft. 10 in. ; Pain 0/10; 12:52 Body Mass Index 26.83 (84.82 kg, 177.8 cm) cm10 12:52 Pain Scale: Adult cm10 MDM: 12:59 Patient medically screened. kb 13:50 Differential diagnosis: PICC line malfunction. Data reviewed: vital signs, nurses notes.kb 13:51 Counseling: I had a detailed discussion with the patient and/or guardian regarding the kb historical points, exam findings, and any diagnostic results supporting the discharge/admit diagnosis, the need for outpatient follow up, a family practitioner, to return to the emergency department if symptoms worsen or persist or if there are any questions or concerns that arise at home. ED course: Both PICC line ports flush well after treatment. Administered Medications: 13:10 Drug: Cathflo Activase IV Thrombolytics 2 mg IV Thrombolytics once; into each catheter cm10 lumen, may repeat once Route: IV Thrombolytics; 13:53 Follow up: Response: No adverse reaction; Marked relief of symptoms cm10 Disposition Summary: 02/18/24 13:51 Discharge Ordered Notes: Location: Home Condition: Stable kb Diagnosis - Encounter for management of PICC line kb Followup: kb - With: Emergency Department - When: As needed - Reason: Worsening of condition Followup: kb - With: Private Physician - When: 2 - 3 days - Reason: Recheck today's complaints, Continuance of care, Re-evaluation by your physician Discharge Instructions: - Discharge Summary Sheet kb - PICC Home Care Guide kb Forms: - Medication Reconciliation Form kb - Antibiotic Education kb - Prescription Opioid Use kb - Patient Portal Instructions kb - Leadership Thank You Letter kb Signatures: Naa Turpin FNP-C FNP-Delilah De La Garza, RN RN cm10
[2024-02-18 14:03] VITALS: BP 111/53; TEMP 97.5; O2SAT 100
== END 2024-02-18 13:58 | disposition home or self-care (01) ==
LOC: ER 12:28
DX: T82.594A Other mechanical complication of infusion catheter, initial encounter (principal)
CPT/HCPCS: 36593; J2997; 92977; 99291

== ENCOUNTER 2024-03-03 21:34 | Emergency (ER) | payer OTHER ==
--- NOTE | 2024-03-04 00:01 | ER ---
Nurse's Notes [facility] Name: Maik Stock Age: 48 yrs Sex: Male : 1975 Arrival Date: 03/03/2024 Time: 21:34 Bed 15 Private MD: Diagnosis: Pain in right foot-heel Presentation: 03/03 21:59 Chief complaint: Patient states: has a wound to right medial foot for a month that he me1 has been seeing Dr Murrieta for in wound healing but earlier today patient has developed pain and swelling closer back to his heel. Denies fever. Coronavirus screen: Vaccine status: Patient reports receiving the 2nd dose of the covid vaccine. Ebola Screen: No symptoms or risks identified at this time. Initial Sepsis Screen: Does the patient meet any 2 criteria? HR > 90 bpm. Does the patient have a suspected source of infection?. Risk Assessment: Do you want to hurt yourself or someone else? Patient reports no desire to harm self or others. Onset of symptoms was March 03, 2024. 21:59 Method Of [place] [facility] [place] Acuity: JACQUE 3 [facility] [place] Historical: - PMHx: 22:05 Diabetes - NIDDM; Hypertensive disorder; me1 - PSHx: 22:05 toe amputation; I\T\D of wound to right medial foot (toe amputation ); me1 - Immunization history:: Adult Immunizations up to date. - Infectious Disease History:: Denies. - Social history:: Smoking status: Patient denies any tobacco usage or history of. Screenin:10 [facility] ED Fall Risk Assessment (Adult) History of falling in the last 3 months, rg5 including since admission No falls in past 3 months (0 pts) Confusion or Disorientation No (0 pts) Intoxicated or Sedated No (0 pts) Impaired Gait No (0 pts) Mobility Assist Device Used No (0 pt) Altered Elimination No (0 pt) Score/Fall Risk Level 0 - 2 = Low Risk Oriented to surroundings, Maintained a safe environment, Hourly rounding (assess needs \T\ fall precautionary measures) done. Abuse screen: Denies threats or abuse. Nutritional screening: No deficits noted. Tuberculosis screening: No symptoms or risk factors identified. Assessment: 22:10 General: Appears in no apparent distress. Behavior is calm, cooperative, appropriate rg5 for age. 22:10 Pain: Complains of pain in left foot Pain currently is 6 out of 10 on a pain scale. rg5 Quality of pain is described as aching. Neuro: Level of Consciousness is awake, alert, obeys commands, Oriented to person, place, time. Cardiovascular: Denies chest pain, shortness of breath, Patient's skin is warm and dry. Respiratory: Airway is patent Trachea midline Respiratory effort is even, unlabored, Respiratory pattern is regular, symmetrical. GI: Abdomen is flat, non-distended. : No signs and/or symptoms were reported regarding the genitourinary system. EENT: No deficits noted. Derm: Skin is intact, is healthy with good turgor, Skin is dry, Skin is normal. Musculoskeletal: Circulation, motion, and sensation intact. Range of motion: intact in all extremities. 23:15 Reassessment: Patient and/or family updated on plan of care and expected duration. Pain rg5 level reassessed. Patient is alert, oriented x 3, equal unlabored respirations, skin warm/dry/pink. 03/04 00:15 Reassessment: Patient and/or family updated on plan of care and expected duration. Pain rg5 level reassessed. Patient is alert, oriented x 3, equal unlabored respirations, skin warm/dry/pink. Vital Signs: 03/03 21:59 BP 121 / 69; Pulse 101; Resp 16; Temp 98.3; Pulse Ox 100% ; Weight 83.91 kg; Height 5 me1 ft. 10 in. ; Pain 6/10; 22:30 BP 128 / 82; Pulse 96; Resp 18; Pulse Ox 99% on R/A; rg5 23:30 BP 133 / 84; Pulse 95; Resp 17; Pulse Ox 100% on R/A; rg5 03/04 00:15 BP 139 / 75; Pulse 90; Resp 17; Temp 98(O); Pulse Ox 99% ; Pain 5/10; rg5 03/03 21:59 Body Mass Index 26.54 (83.91 kg, 177.8 cm) me1 03/03 21:59 Pain Scale: Adult me1 03/04 00:15 Pain Scale: Adult rg5 ED Course: 03/03 21:45 Patient arrived in ED. ra3 22:00 Naa Turpin FNP-C [facility]. kb 22:00 Mohan Souza MD is Attending Physician. kb 22:05 Triage completed. me1 22:05 Arm band placed on Patient placed in an exam room. me1 22:10 Patient has correct armband on for positive identification. Bed in low position. Call rg5 light in reach. Side rails up X 1. 22:10 No provider procedures requiring assistance completed. Patient did not have IV access rg5 during this emergency room visit. 22:29 Sean Hathaway, RN is Primary Nurse. rg5 22:56 Foot Right 3 View XRAY In Process Unspecified. EDMS 23:27 US Extremity Venous Unilateral Ltd In Process Unspecified. EDMS 03/04 00:46 Provided Education on: POST ER CARE. rg5 Administered Medications: 00:15 Drug: Ketorolac IM 30 mg IM once Route: IM; Site: right deltoid; rg5 00:41 Follow up: Response: No adverse reaction; Pain is decreased rg5 Medication: 03/03 22:10 VIS not applicable for this client. rg5 Outcome: 03/04 00:01 Discharge ordered by . kb 00:46 Discharged to home ambulatory, rg5 00:46 Condition: stable 00:46 Discharge instructions given to patient, Instructed on discharge instructions, Demonstrated understanding of instructions, follow-up care, 00:47 Patient left the ED. rg5 Signatures: Dispatcher [employer] Naa Best, INSTALLATION MANAGER-C INSTALLATION MANAGER-CkKathleen Kenny, RN RN me1 Liana Pearce 3 Sean Hathaway, RN RN rg5
--- NOTE | 2024-03-04 00:01 | EDPHYS ---
Physician Documentation [facility] Name: Maik Stock Age: 48 yrs Sex: Male : 1975 Arrival Date: 03/03/2024 Time: 21:34 Bed 15 Private MD: ED Physician Mohan Souza HPI: 03/03 23:59 This 48 yrs old Male presents to ER via Ambulatory with complaints of Foot kb Pain. 23:59 Pt is a 48 year old male who presents for right heel pain that started today. States kb the pain radiates up leg intermittently. Reports he had surgery to his foot one month ago and everything has been going well with that part, he has no pain. Pt has swelling to right lower leg and foot which he reports is not new. Denies fever. . Historical: - PMHx: 22:05 Diabetes - NIDDM; Hypertensive disorder; me1 - PSHx: 22:05 toe amputation; I\T\D of wound to right medial foot (toe amputation ); me1 - Immunization history:: Adult Immunizations up to date. - Infectious Disease History:: Denies. - Social history:: Smoking status: Patient denies any tobacco usage or history of. ROS: 23:58 Constitutional: As per HPI kb Exam: 23:58 Constitutional: This is a well developed, well nourished patient who is awake, alert, kb and in no acute distress. Head/Face: Normocephalic, atraumatic. ENT: Moist Mucous membranes Cardiovascular: Regular rate Respiratory: Respirations even and unlabored. No increased work of breathing. Talking in full sentences Abdomen/GI: Soft, non-tender. No distention Skin: Warm, dry with normal turgor. Normal color. Neuro: Awake and alert, GCS 15, oriented to person, place, time, and situation. Moves all extremities. Normal gait. 23:58 Musculoskeletal/extremity: Extremities: grossly normal except: noted in the lateral side of right heel and medial aspect of right heel: pain, ROM: intact in all extremities, Circulation is intact in all extremities. Sensation intact. Weight bearing: able to fully bear weight, Vital Signs: 21:59 BP 121 / 69; Pulse 101; Resp 16; Temp 98.3; Pulse Ox 100% ; Weight 83.91 kg; Height 5 me1 ft. 10 in. ; Pain 6/10; 22:30 BP 128 / 82; Pulse 96; Resp 18; Pulse Ox 99% on R/A; rg5 23:30 BP 133 / 84; Pulse 95; Resp 17; Pulse Ox 100% on R/A; rg5 03/04 00:15 BP 139 / 75; Pulse 90; Resp 17; Temp 98(O); Pulse Ox 99% ; Pain 5/10; rg5 03/03 21:59 Body Mass Index 26.54 (83.91 kg, 177.8 cm) me1 03/03 21:59 Pain Scale: Adult me1 03/04 00:15 Pain Scale: Adult rg5 MDM: 03/03 22:00 Patient medically screened. kb 23:58 Differential diagnosis: closed fracture, dvt, infection. Data reviewed: vital signs, kb nurses notes. Management of patient was discussed with the following: Dr Souza, recommends outpatient treatment. Counseling: I had a detailed discussion with the patient and/or guardian regarding the historical points, exam findings, and any diagnostic results supporting the discharge/admit diagnosis, radiology results, the need for outpatient follow up, a family practitioner, to return to the emergency department if symptoms worsen or persist or if there are any questions or concerns that arise at home. 03/03 22:27 Order name: Foot Right 3 View XRAY 03/03 22:27 Order name: US Extremity Venous Unilateral Ltd kb Administered Medications: 03/04 00:15 Drug: Ketorolac IM 30 mg IM once Route: IM; Site: right deltoid; rg5 00:41 Follow up: Response: No adverse reaction; Pain is decreased rg5 Disposition Summary: 03/04/24 00:01 Discharge Ordered Notes: Location: Home Condition: Stable kb Diagnosis - Pain in right foot - heel kb Followup: kb - With: Emergency Department - When: As needed - Reason: Worsening of condition Followup: kb - With: Private Physician - When: 2 - 3 days - Reason: Recheck today's complaints, Continuance of care, Re-evaluation by your physician Discharge Instructions: - Discharge Summary Sheet kb - Musculoskeletal Pain kb Forms: - Medication Reconciliation Form kb - Antibiotic Education kb - Prescription Opioid Use kb - Patient Portal Instructions kb - Leadership Thank You Letter kb Signatures: Dispatcher [employer] Naa Best, TYREE-C CEMENT FINISHER APPRENTICE-Kathleen Whitfield, RN RN me1 Sean Hathaway RN RN rg5 Corrections: (The following items were deleted from the chart) 03/03 22: 22:28 Foot Right 3 View+RAD.RAD.BRZ ordered. EDMS EDMS 22: Extremity Venous Uni Ltd+US.RAD.BRZ ordered. EDMS EDMS
--- NOTE | 2024-03-04 00:35 | RAD REPORT ---
EXAM DESCRIPTION: Foot Right 3 View CLINICAL HISTORY: PAIN TECHNIQUE: Three views of the right foot are submitted. COMPARISON: None available for comparison FINDINGS: Status post amputation of the first toe. Disruption of the distal portion of the second metatarsal and head of the metatarsal, and disruption of the second metatarsophalangeal joint, and base of the proximal phalanx of the second toe which may represent sequela from advanced osteomyelitis. Cortical thickening along the fourth and fifth metatarsals which may represent sequela from prior fra cture or stress reaction. Calcification along the plantar aponeurosis likely sequela from plantar fasciitis. Atherosclerotic calcifications. IMPRESSION: 1. Disruption of the distal portion of the second metatarsal and head of the metatarsal, and disrup tion of the second metatarsophalangeal joint, and base of the proximal phalanx of the second toe which may represent sequela from advanced osteomyelitis. 2. Cortical thickening along the fourth and fifth metatarsals which may represent sequela from prio r fracture or stress reaction. 3. Consider further evaluation with MRI. Electronically signed by: Kendrick Grace MD 03/03/2024 11:21 PM CDT Due to temporary technical issues with the PACS/Finsphere reporting system, reports are being jess d by the in-house radiologist without review as a courtesy to ensure prompt reporting the interpreting radiologist is fully responsible for the content of the report. Transcribed Date/Time: 03/04/2024 12:34 AM
[2024-03-04] MEDS ORDERED: KETOROLAC 30 MG/ML INJ ONE (00:36)
[2024-03-04 01:11] VITALS: BP 139/75; TEMP 98; O2SAT 99
--- NOTE | 2024-03-04 08:16 | RAD REPORT ---
PROCEDURE: US UNILATERAL LOWER EXTREMITYVENOUS DUPLEX DOPPLER TECHNIQUE: Duplex Doppler ultrasound of the right common and superficial femoral, popliteal, posterio r tibial, and proximal deep femoral and greater saphenous veins was attempted. Wallace scale imaging with and without compression, s pectral waveform analysis with and without augmentation, and color flow Doppler were employed. HISTORY: , , PAIN, Bed Name: 15 COMPARISONS: None FINDINGS: Deep Venous Thrombus: None Superficial Venous Thrombus: None Venous valvular incompetence: None Soft tissue abnormality: None Other: None IMPRESSION: No evidence of deep venous thrombosis in the right lower extremity. Electronically signed by: Delano Pinedo MD 03/03/2024 11:49 PM CDT RP QQL Due to temporary technical issues with the PACS/MONOQI reporting system, reports are being jess d by the in-house radiologist without review as a courtesy to ensure prompt reporting the interpreting radiologist is fully responsible for the content of the report. Transcribed Date/Time: 03/04/2024 8:16 AM
== END 2024-03-04 00:47 | disposition home or self-care (01) ==
LOC: ER 21:34
DX: M79.671 Pain in right foot (principal); E11.9 Type 2 diabetes mellitus without complications; I10 Essential (primary) hypertension
CPT/HCPCS: 93971; 96372; 99284

== ENCOUNTER 2024-05-25 10:34 | Emergency (ER) | payer OTHER ==
[2024-05-25] MEDS ORDERED: MORPHINE 4 MG/ML SYR ONE (11:22)
[2024-05-25] MEDS ORDERED: ONDANSETRON 4 MG/2 ML VIAL ONE (11:22)
[2024-05-25] MEDS ORDERED: NA CHLORIDE 0.9% 2,000 ML ONE (11:23)
[2024-05-25 11:52] LABS: Absolute Lymphocytes (CBC) 1.9 K/uL (0.7-4.9); Absolute Monocytes 0.7 K/uL (0.1-1.3); Absolute Neutrophil 7.2 K/uL (1.8-8.0); Basophils % 0.3 % (0-1.3); Eosinophils % 0.2 % (0-4.4); Hematocrit 38.9 % (39.6-49.0); Hemoglobin 12.9 g/dL (13.6-17.9); Lymphocytes % 18.9 % (15.3-44.8); MCH 30.2 pg (27.0-35.0); MCHC 33.1 g/dL (32.0-36.0); MCV 91.2 fL (80-100); MPV 7.9 fL (7.6-11.3); Monocytes % 7.4 % (3.3-12.3); Neutrophils % 73.2 % (41.7-73.7); Platelets 313 thou/uL (152-406); RBC Red Blood Cell Count 4.27 M/uL (4.33-5.43); Red Cell Distribution Width 14.7 % (12.1-15.2)
--- NOTE | 2024-05-25 11:54 | RAD REPORT ---
EXAMINATION: US LOWER EXTREMITY VENOUS DOPPLER BILATERAL CLINICAL INDICATION: Male, 48 years old.PAIN TECHNIQUE: Complete bilateral duplex sonography of the lower extremity veins was performed. The exami nation included compression for vein patency, color Doppler imaging and flow augmentation in response to distal compression of the distal external iliac, common femoral, femoral, popliteal, bassem rafat, tibial and great saphenous veins. [id number]. COMPARISON: 03/03/2024 FINDINGS: Nonocclusive thrombus which is eccentric located right mid femoral vein. This was not identified on t he prior ultrasound. The remaining vessels within the lower extremities are compressible bilaterally. Simple appearing fluid collection anterior to the left knee measuring 7.3 x 1.8 cm. IMPRESSION: 1. Nonocclusive eccentric thrombus in the right mid femoral vein has an appearance of subacute or chr onic thrombus. It was not present on the 03/03/24 exam, however. No other filling defects identified. No definite acute DVT identified. Conveyed to Dr. Benjamin by Dr. Davis at 1150 on 05/25/24 . 2. Simple appearing fluid collection anterior to the left knee may be within the prepatellar bursa.
[2024-05-25 12:03] LABS: Albumin 3.3 g/dL (3.4-5.0); Albumin/Globulin Ratio 0.8 (1.1-1.8); Anion Gap 8.3 mEq/L (5.0-15.0); Bilirubin Total 1.2 mg/dL (0.2-1.0); Globulin 4.2 g/dL (2.3-3.5); Potassium 4.3 mEq/L (3.5-5.1); Protein, Total 7.5 g/dL (6.4-8.2)
[2024-05-25] MEDS ORDERED: ACETYLCYST 20% 800 MG/4 ML VIAL PO ONE (12:45)
[2024-05-25 13:09] LABS: Specific Gravity > 1.030 (1.005-1.030); Sqamous Epithelial <5 /HPF (None Seen); Urine Bacteria None Seen /HPF (<20); Urine Bilirubin NEGATIVE (Negative); Urine Blood Trace (Negative); Urine Clarity Clear (Clear); Urine Color Yellow (Yellow); Urine Culture Reflex Order NOT NEEDED; Urine Glucose 3+ (Negative); Urine Ketones 1+ (Negative); Urine Microscopic Reflex YN ORDER UMIC; Urine Mucus Slight /HPF (None Seen); Urine Nitrite NEGATIVE (Negative); Urine Protein 1+ (Negative); Urine Urobilinogen Normal (Normal); Urine WBC <5 /HPF (<5)
[2024-05-25] MEDS ORDERED: ASPIRIN 81 MG CHEWABLE TABLET ONE (13:33)
[2024-05-25] MEDS ORDERED: DOXYCYCLINE 100 MG CAP PO ONE (13:33)
--- NOTE | 2024-05-25 13:52 | RAD REPORT ---
EXAMINATION: CT Abdomen Pelvis W Contrast CLINICAL INDICATION: Male, 48 years old. ABD PAIN TECHNIQUE: CT abdomen and pelvis was performed, after the administration of IV contrast, [facility]. Axial, sagittal and coronal reconstructions were obtained. One or more of the following dose reduction techniques were used: Automated exposure control, adjustment of the mA and k V according to patient size, and iterative reconstruction. Unless otherwise specified, incidental findings do not require dedicated imaging follow-up. COMPARISON: 3 wall FINDINGS: LOWER CHEST: The visualized lung bases are clear. LIVER: Normal in size and contour. No focal lesion. BILIARY SYSTEM: No suspicious abnormalities. SPLEEN: Normal size. No focal lesion. PANCREAS: No mass, ductal dilation, or gilbert-pancreatic fluid. ADRENALS: Normal; no mass. KIDNEYS: Normal size and contour. No hydronephrosis. 3 mm left superior pole nonobstructing calculus. URINARY BLADDER: Unremarkable. GASTROINTESTINAL TRACT: No evidence of free air, significant intra-abdominal free fluid, bowel obstru ction or abscess. APPENDIX: Appendix surgically absent. LYMPH NODES: No lymphadenopathy. MUSCULOSKELETAL: No acute or suspicious osseous abnormality. Subtle osseous irregularity along the an teroinferior aspect of the left pubic bone, with edema also extending along the anterior aspect of the proximal left thigh adductors. ADDITIONAL FINDINGS: Nonspecific fat stranding along the left inguinal canal. Mildly prominent right inguinal lymph nodes largest measuring 1.3 cm in short axis. IMPRESSION: Nonspecific fat stranding along the left inguinal canal, findings may relate to sprain or muscle inju ry related to the adductor muscles, varicocele, or other infectious or inflammatory process relating to the inguinal canal content. Please correlate clinically. Nonobstructing left renal superior pole 3 mm calculus.
--- NOTE | 2024-05-25 13:58 | EDPHYS ---
Physician Documentation [facility] Name: Maik Stock Age: 48 yrs Sex: Male : 1975 Arrival Date: 05/25/2024 Time: 10:34 Bed 20 Private MD: GEOVANNA Physician Kashmir Benjamin HPI: 05/25 11:13 This 48 yrs old Male presents to ER via Ambulatory with complaints of PAIN dutch LOWER ABDOMEN-LIKE DOWN SIDE AND LEG. 11:13 The patient presents with decreased range of motion, pain, that is acute. The dutch complaints affect the abdomen and left leg. Context: The problem was sustained at an unknown site, resulted from an unknown cause, the patient is not able to bear weight. Onset: The symptoms/episode began/occurred yesterday. Modifying factors: The symptoms are alleviated by remaining still, the symptoms are aggravated by movement. Associated signs and symptoms: The patient has no apparent associated signs or symptoms. The patient presents with abdominal pain in the lower abdomen, in the left lower quadrant. The patient presents with tenderness, that is mild, left groin. Modifying factors: The symptoms are alleviated by remaining still, the symptoms are aggravated by movement, pressure. Historical: - Allergies: 10:57 No Known Allergies; kc6 - PMHx: 10:57 Diabetes - NIDDM; Hypertensive disorder; kc6 - PSHx: 10:57 I\T\D of wound to right medial foot (pu); toe amputation; kc6 - Immunization history:: Adult Immunizations up to date. - Infectious Disease History:: Denies. - Social history:: Smoking status: Patient denies any tobacco usage or history of. - Family history:: not pertinent. ROS: 11:13 Constitutional: Negative for fever, chills, and weight loss, Eyes: Negative for injury, dutch pain, redness, and discharge, ENT: Negative for injury, pain, and discharge, Neck: Negative for injury, pain, and swelling, Cardiovascular: Negative for chest pain, palpitations, and edema, Respiratory: Negative for shortness of breath, cough, wheezing, and pleuritic chest pain, Back: Negative for injury and pain, : Negative for injury, bleeding, discharge, and swelling, Skin: Negative for injury, rash, and discoloration, Neuro: Negative for headache, weakness, numbness, tingling, and seizure, Psych: Negative for depression, anxiety, suicide ideation, homicidal ideation, and hallucinations, Allergy/Immunology: Negative for hives, rash, and allergies, Endocrine: Negative for neck swelling, polydipsia, polyuria, polyphagia, and marked weight changes, Hematologic/Lymphatic: Negative for swollen nodes, abnormal bleeding, and unusual bruising, 11:13 Abdomen/GI: Positive for abdominal pain, abdominal cramps, of the left lower quadrant, Exam: 11:13 Constitutional: This is a well developed, well nourished patient who is awake, alert, dutch and in no acute distress. Head/Face: Normocephalic, atraumatic. Eyes: Pupils equal round and reactive to light, extra-ocular motions intact. Lids and lashes normal. Conjunctiva and sclera are non-icteric and not injected. Cornea within normal limits. Periorbital areas with no swelling, redness, or edema. ENT: Nares patent. No nasal discharge, no septal abnormalities noted. Tympanic membranes are normal and external auditory canals are clear. Oropharynx with no redness, swelling, or masses, exudates, or evidence of obstruction, uvula midline. Mucous membranes moist. Neck: Trachea midline, no thyromegaly or masses palpated, and no cervical lymphadenopathy. Supple, full range of motion without nuchal rigidity, or vertebral point tenderness. No Meningismus. Chest/axilla: Normal chest wall appearance and motion. Nontender with no deformity. No lesions are appreciated. Cardiovascular: Regular rate and rhythm with a normal S1 and S2. No gallops, murmurs, or rubs. Normal PMI, no JVD. No pulse deficits. Respiratory: Lungs have equal breath sounds bilaterally, clear to auscultation and percussion. No rales, rhonchi or wheezes noted. No increased work of breathing, no retractions or nasal flaring. Back: No spinal tenderness. No costovertebral tenderness. Full range of motion. Male : Normal genitalia with no discharge or lesions. Skin: Warm, dry with normal turgor. Normal color with no rashes, no lesions, and no evidence of cellulitis. Neuro: Awake and alert, GCS 15, oriented to person, place, time, and situation. Cranial nerves II-XII grossly intact. Motor strength 5/5 in all extremities. Sensory grossly intact. Cerebellar exam normal. Normal gait. Psych: Awake, alert, with orientation to person, place and time. Behavior, mood, and affect are within normal limits. 11:13 Abdomen/GI: Inspection: abdomen appears normal, Bowel sounds: normal, Palpation: soft, mild abdominal tenderness, moderate abdominal tenderness, in the left lower quadrant, Liver: no appreciated palpable abnormalities, Hernia: not appreciated, 11:13 Musculoskeletal/extremity: Extremities: grossly normal except: decreased ROM, pain, swelling, bilateral grion adenopathy, Vital Signs: 10:54 BP 120 / 62; Pulse 86; Resp 16; Temp 97.6(O); Pulse Ox 100% on R/A; Weight 86.18 kg kc6 (R); Height 5 ft. 10 in. (R); Pain 9/10; 12:04 BP 146 / 59; Pulse 80; Resp 16 S; Pulse Ox 100% on R/A; kc6 14:28 BP 140 / 64; Pulse 82; Resp 17 S; Pulse Ox 99% on R/A; kc6 10:54 Body Mass Index 27.26 (86.18 kg, 177.8 cm) kc6 10:54 Pain Scale: Adult kc6 MDM: 10:45 Medical Screening Exam initiated [facility] 11:16 Differential diagnosis: contusion, nonspecific abdominal pain, UTI, urinary retention, dutch prostatitis, urethritis, Prostatitis, Ureterolithiasis, urinary tract infection. Data reviewed: vital signs, nurses notes, lab test result(s), radiologic studies, doppler, plain films. Consideration of Admission/Observation Escalation of care including admission/observation considered. I considered the following discharge prescriptions or medication management in the emergency department Medications were administered in the Emergency Department. See MAR. Independent interpretation of the following test(s) in the Emergency Department CT Scan: My interpretation is ct abd pelvis. 13:35 Historians other than the Patient: pt well informed. Care significantly affected by the [facility] following chronic conditions: Diabetes, Hypertension. Counseling: I had a detailed discussion with the patient and/or guardian regarding the historical points, exam findings, and any diagnostic results supporting the discharge/admit diagnosis, lab results, radiology results, the need for outpatient follow up, for definitive care, a family practitioner, a director executive communications. 13:36 ED course: Lacho SCHNEIDER NO FACTOR 10 ANTIOGULATION. [facility] 05/25 11:11 Order name: CBC with Diff; Complete Time: 12:04 [facility] 05/25 11:11 Order name: CMP; Complete Time: 12:04 [facility] 05/25 11:11 Order name: Lipase; Complete Time: 12:04 [facility] 05/25 11:11 Order name: Urinalysis w/ reflexes; Complete Time: 13:17 [facility] 05/25 11:11 Order name: CT Abd/Pelvis - IV Contrast Only; Complete Time: 13:57 [facility] 05/25 11:11 Order name: US Extremity Venous W Compression Winston; Complete Time: 12:04 [facility] 05/25 12:06 Order name: CT Chest For PE Angio [facility] 05/25 11:11 Order name: IV Saline Lock; Complete Time: 11:40 [facility] 05/25 11:11 Order name: Labs collected and sent; Complete Time: 11:40 [facility] Administered Medications: 11:40 Drug: Ondansetron IVP 4 mg IVP once; over 2 minutes Route: IVP; Site: right forearm; kc6 12:57 Follow up: Response: No adverse reaction [facility] 11:40 Drug: morphine IVP or IV 4 mg IVP once over 4 mins Route: IVP; Infused Over: 4 mins; kc6 Site: right forearm; 12:57 Follow up: Response: No adverse reaction; RASS: Alert and Calm (0) kc6 11:40 Drug: NS 0.9% IV 1000 ml IV at 1 bolus Per protocol; to be given as a bolus over 60 kc6 minutes Route: IV; Rate: 1 bolus; Site: right forearm; 14:22 Follow up: Response: No adverse reaction; IV Status: Completed infusion; IV Intake: kc6 1000ml 11:40 Drug: NS 0.9% IV 1000 ml IV at 1000 ml once; to be given as a bolus over 60 minutes kc6 Route: IV; Rate: 1000 ml; Site: right forearm; 14:22 Follow up: Response: No adverse reaction; IV Status: Completed infusion; IV Intake: kc6 1000ml 12:57 Drug: Mucomyst - Acetylcysteine PO 600 mg PO once Route: PO; kc6 13:16 Follow up: Response: No adverse reaction kc6 13:27 CANCELLED (Duplicate Order): [id number] mg PO once [facility] 13:54 Drug: Doxycycline PO 200 mg PO once Route: PO; kc6 14:22 Follow up: Response: No adverse reaction kc6 13:55 Drug: Aspirin PO Chewable Tablet 162 mg PO once Route: PO; kc6 14:22 Follow up: Response: No adverse reaction kc6 14:25 Drug: Ciprofloxacin PO 500 mg PO once Route: PO; kc6 Disposition Summary: 05/25/24 13:58 Discharge Ordered Notes: Location: Home dutch Problem: new dutch Symptoms: have improved dutch Condition: Stable dutch Diagnosis - Enlarged lymph nodes, unspecified dutch - Localized enlarged lymph nodes dutch - Pain in leg, unspecified - non occulsive thrombus, old vs subacute dutch - Abdominal tenderness dutch - Type 2 diabetes mellitus with hyperglycemia dutch Followup: dutch - With: Private Physician - When: 2 - 3 days - Reason: Recheck today's complaints, Continuance of care, Re-evaluation by your physician Followup: dutch - With: Papo Leal MD - When: 2 - 3 days - Reason: Recheck today's complaints, Re-evaluation by your physician Followup: dutch - With: Amrik Souza DO - When: 2 - 3 days - Reason: Recheck today's complaints, Re-evaluation by your physician Followup: dutch - With: Ollie Staples MD - When: 2 - 3 days - Reason: Recheck today's complaints, Re-evaluation by your physician Discharge Instructions: - Discharge Summary Sheet dutch - Abdominal Pain, Adult dutch - Hyperglycemia dutch - Musculoskeletal Pain dutch - Diabetes Mellitus and Nutrition, Adult dutch - Aspirin and Your Heart dutch - Lymphadenopathy dutch - Open Lymph Node Biopsy [facility] Forms: - Medication Reconciliation Form dutch - Antibiotic Education dutch - Prescription Opioid Use dutch - Patient Portal Instructions [facility] - Leadership Thank You Letter [facility] Prescriptions: - acetaminophen-codeine 300-30 mg Oral tablet - take 1 tablet ORAL route every 4 to 6 hours as needed for pain; 20 tablet; dutch Refills: 0, Product Selection Permitted - Doxycycline Hyclate 100 mg Oral Tablet - take 1 tablet ORAL route every 12 hours; 20 tablet; Refills: 0, Product dutch Selection Permitted - Cipro 500 mg Oral Tablet - take 1 tablet ORAL route every 12 hours for 7 days; 14 tablet; Refills: 0, [facility] Product Selection Permitted - Motrin IB 200 mg Oral tablet - take 1 tablet ORAL route every 6 hours As needed as needed with food; 28 dutch tablet; Refills: 0, Product Selection Permitted Signatures: Dispatcher [employer] EDMS Kashmir Benjamin MD MD cha Campbell, Kaitlyn RN RN kc6 Corrections: (The following items were deleted from the chart) 11: 11:11 CBC+H.LAB.BRZ ordered. EDMS EDMS 11: 11:11 COMPREHENSIVE METABOLIC PANEL+C.LAB.BRZ ordered. EDMS EDMS 11: 11:11 LIPASE+C.LAB.BRZ ordered. EDMS EDMS 11: 11:11 Urinalysis+U.LAB.BRZ ordered. EDMS EDMS 11: 11:11 Abdomen Pelvis W Con+CT.RAD.BRZ ordered. EDMS EDMS 11: 11:11 Extrem Venous W Compression Winston+US.RAD.BRZ ordered. EDMS EDMS 13:27 13:20 Eliquis PO 10 mg PO once ordered. dutch judd
--- NOTE | 2024-05-25 13:58 | ER ---
Nurse's Notes [facility] Name: Maik Stock Age: 48 yrs Sex: Male : 1975 Arrival Date: 05/25/2024 Time: 10:34 Bed 20 Private MD: Diagnosis: Enlarged lymph nodes, unspecified;Localized enlarged lymph nodes;Pain in leg, unspecified-non occulsive thrombus, old vs subacute;Abdominal tenderness;Type 2 diabetes mellitus with hyperglycemia Presentation: 05/25 10:54 Chief complaint: Patient states: 910 left inguinal pain that started at 2230 last kc6 night. denies injury. Coronavirus screen: At this time, the client does not indicate any symptoms associated with coronavirus-19. Ebola Screen: No symptoms or risks identified at this time. Initial Sepsis Screen: Does the patient meet any 2 criteria? No. Patient's initial sepsis screen is negative. Does the patient have a suspected source of infection? No. Patient's initial sepsis screen is negative. Risk Assessment: Do you want to hurt yourself or someone else? Patient reports no desire to harm self or others. Onset of symptoms was May 25, 2024. 10:54 Method Of Arrival: Ambulatory kc 10:54 Acuity: JACQUE 3 kc6 Historical: - Allergies: 10:57 No Known Allergies; kc6 - PMHx: 10:57 Diabetes - NIDDM; Hypertensive disorder; kc6 - PSHx: 10:57 I\T\D of wound to right medial foot (pu); toe amputation; kc6 - Immunization history:: Adult Immunizations up to date. - Infectious Disease History:: Denies. - Social history:: Smoking status: Patient denies any tobacco usage or history of. - Family history:: not pertinent. Screenin:58 [facility] ED Fall Risk Assessment (Adult) History of falling in the last 3 months, kc6 including since admission No falls in past 3 months (0 pts) Confusion or Disorientation No (0 pts) Intoxicated or Sedated No (0 pts) Impaired Gait No (0 pts) Mobility Assist Device Used No (0 pt) Altered Elimination No (0 pt) Score/Fall Risk Level 0 - 2 = Low Risk Oriented to surroundings, Maintained a safe environment. Abuse screen: Denies threats or abuse. Denies injuries from another. Nutritional screening: No deficits noted. Tuberculosis screening: No symptoms or risk factors identified. Assessment: 10:58 General: Appears in no apparent distress. comfortable, well groomed, well developed, kc Behavior is calm, cooperative, appropriate for age. Pain: Complains of pain in left femoral area, left inguinal area and left iliac crest Pain currently is 9 out of 10 on a pain scale. Pain began suddenly. Neuro: Level of Consciousness is awake, alert, obeys commands, Oriented to person, place, time, situation, Appropriate for age. Cardiovascular: Capillary refill < 3 seconds. Respiratory: Airway is patent Trachea midline Respiratory effort is even, unlabored, Respiratory pattern is regular, symmetrical. GI: No signs and/or symptoms were reported involving the gastrointestinal system. : No signs and/or symptoms were reported regarding the genitourinary system. EENT: No signs and/or symptoms were reported regarding the EENT system. Derm: No signs and/or symptoms reported regarding the dermatologic system. Skin is intact, is healthy with good turgor, Skin is pink, warm \T\ dry. Musculoskeletal: No signs and/or symptoms reported regarding the musculoskeletal system. Circulation, motion, and sensation intact. Capillary refill < 3 seconds, Range of motion: intact in all extremities. 11:58 Reassessment: Patient appears in no apparent distress at this time. No changes from [facility] previously documented assessment. Patient and/or family updated on plan of care and expected duration. Pain level reassessed. Patient is alert, oriented x 3, equal unlabored respirations, skin warm/dry/pink. 12:57 Reassessment: Patient appears in no apparent distress at this time. No changes from kc6 previously documented assessment. Patient and/or family updated on plan of care and expected duration. Pain level reassessed. Patient is alert, oriented x 3, equal unlabored respirations, skin warm/dry/pink. 14:00 Reassessment: d/c pending CT results of chest. [facility] 14:28 Reassessment: Patient appears in no apparent distress at this time. No changes from kc6 previously documented assessment. Patient and/or family updated on plan of care and expected duration. Pain level reassessed. Patient is alert, oriented x 3, equal unlabored respirations, skin warm/dry/pink. Vital Signs: 10:54 BP 120 / 62; Pulse 86; Resp 16; Temp 97.6(O); Pulse Ox 100% on R/A; Weight 86.18 kg kc6 (R); Height 5 ft. 10 in. (R); Pain 9/10; 12:04 BP 146 / 59; Pulse 80; Resp 16 S; Pulse Ox 100% on R/A; kc6 14:28 BP 140 / 64; Pulse 82; Resp 17 S; Pulse Ox 99% on R/A; kc6 10:54 Body Mass Index 27.26 (86.18 kg, 177.8 cm) kc6 10:54 Pain Scale: Adult kc6 ED Course: 10:42 Patient arrived in ED. sj2 10:45 Kashmir Benjamin MD is Attending Physician. dutch 10:49 Elke Banks RN is Primary Nurse. kc6 10:57 Triage completed. kc6 10:57 Arm band placed on. kc6 10:58 Patient has correct armband on for positive identification. Bed in low position. Call kc6 light in reach. Side rails up X 1. Pulse ox on. NIBP on. Door closed. Noise minimized. Lights dimmed. Pillow given. 10:58 Patient maintains SpO2 saturation greater than 95% on room air. kc6 11:31 US Extremity Venous W Compression Winston In Process Unspecified. EDMS 11:40 Inserted saline lock: 22 gauge in right forearm, using aseptic technique. Blood kc6 collected. Flushed with 10 mL NS. 12:47 CT Abd/Pelvis - IV Contrast Only In Process Unspecified. EDMS 12:47 CT Chest For PE Angio In Process Unspecified. EDMS 13:58 Papo Leal MD is Referral Physician. dutch 13:58 Amrik Souza DO is Referral Physician. dutch 13:59 Ollie Staples MD is Referral Physician. dutch 14:29 No provider procedures requiring assistance completed. IV discontinued, intact, kc6 bleeding controlled, No redness/swelling at site. Pressure dressing applied. Administered Medications: 11:40 Drug: Ondansetron IVP 4 mg IVP once; over 2 minutes Route: IVP; Site: right forearm; kc6 12:57 Follow up: Response: No adverse reaction kc6 11:40 Drug: morphine IVP or IV 4 mg IVP once over 4 mins Route: IVP; Infused Over: 4 mins; kc6 Site: right forearm; 12:57 Follow up: Response: No adverse reaction; RASS: Alert and Calm (0) kc6 11:40 Drug: NS 0.9% IV 1000 ml IV at 1 bolus Per protocol; to be given as a bolus over 60 kc6 minutes Route: IV; Rate: 1 bolus; Site: right forearm; 14:22 Follow up: Response: No adverse reaction; IV Status: Completed infusion; IV Intake: kc6 1000ml 11:40 Drug: NS 0.9% IV 1000 ml IV at 1000 ml once; to be given as a bolus over 60 minutes kc6 Route: IV; Rate: 1000 ml; Site: right forearm; 14:22 Follow up: Response: No adverse reaction; IV Status: Completed infusion; IV Intake: kc6 1000ml 12:57 Drug: Mucomyst - Acetylcysteine PO 600 mg PO once Route: PO; kc6 13:16 Follow up: Response: No adverse reaction kc6 13:27 CANCELLED (Duplicate Order): [id number] mg PO once [facility] 13:54 Drug: Doxycycline PO 200 mg PO once Route: PO; kc6 14:22 Follow up: Response: No adverse reaction kc6 13:55 Drug: Aspirin PO Chewable Tablet 162 mg PO once Route: PO; kc6 14:22 Follow up: Response: No adverse reaction kc6 14:25 Drug: Ciprofloxacin PO 500 mg PO once Route: PO; kc6 Medication: 14:29 VIS not applicable for this client. kc6 Intake: 14:22 IV: 1000ml; Total: 1000ml. kc6 14:22 IV: 1000ml; Total: 2000ml. kc6 Outcome: 13:58 Discharge ordered by . [facility] 14:29 Discharged to home ambulatory, kc6 14:29 Condition: good 14:29 Discharge instructions given to patient, Instructed on discharge instructions, follow up and referral plans. no drinking with medication, no driving heavy equipment, medication usage, Demonstrated understanding of instructions, follow-up care, medications, Prescriptions given X 4, 14:29 Patient left the ED. kc6 Signatures: Dispatcher [employer] EDKashmir Fox MD MD cha Campbell, Kaitlyn, RN RN kc6 Elen Dawson [facility]
--- NOTE | 2024-05-25 14:00 | RAD REPORT ---
EXAM: CT Chest For Pe Angio TECHNIQUE: CT angiogram of the chest was performed following intravenous contrast administration, inc luding sagittal and coronal as well as maximum intensity projection reformats. One or more of the following dose reduction techniques were used: Automated exposure control, adjustment of the mA and k V according to patient size, and iterative reconstruction. Unless otherwise specified, incidental findings do not require dedicated imaging follow-up. INDICATION: [facility] MAIN PE Bed Name: 19 Y COMPARISON: None. FINDINGS: LINES/TUBES: None. PULMONARY ARTERIES: Main pulmonary arteries are normal in caliber. No filling defects within the pul monary arteries to suggest pulmonary embolus. LUNGS AND AIRWAYS: The lungs and central airways are normal without focal abnormality apart from left lingular atelectasis. PLEURA: No effusion or pneumothorax. HEART AND MEDIASTINUM: The visualized thyroid gland is normal. No mediastinal, hilar, or axillary lym phadenopathy. Heart is unremarkable. No pericardial effusion. SOFT TISSUES AND BONES: No acute osseous abnormality. No significant soft tissue finding. UPPER ABDOMEN: Unremarkable. IMPRESSION: No evidence of acute central pulmonary emboli. No suspicious intrathoracic findings..
[2024-05-25] MEDS ORDERED: CIPROFLOXACIN HCL 500 MG TAB ONE (14:23)
[2024-05-25 14:46] VITALS: TEMP 97.6
[2024-05-25 15:02] VITALS: BP 140/64; O2SAT 99
== END 2024-05-25 14:29 | disposition home or self-care (01) ==
LOC: ER 10:34
DX: R59.0 Localized enlarged lymph nodes (principal); E11.65 Type 2 diabetes mellitus with hyperglycemia; M79.605 Pain in left leg; I10 Essential (primary) hypertension
CPT/HCPCS: 96361; 85025; 81001; 36415; 83690; 80053; 71275; 74177; 93970; 96375; 96374; 99284; Q9967; J2405; J7030

== ENCOUNTER 2024-06-17 17:42 | Inpatient (IN) | payer OTHER ==
--- NOTE | 2024-06-17 18:54 | RAD REPORT ---
EXAMINATION: XR RIGHT FOOT CLINICAL INDICATION: Male, 48 years old. open wound;Pain TECHNIQUE: Multiple views of the right foot were obtained. COMPARISON: 03/03/2024 FINDINGS: Previous great toe amputation noted. Destructive changes involving the second metatarsal di stally again seen likely chronic osteomyelitis. CHANGES fourth and fifth metatarsal. Small plantar calcaneal spur.
[2024-06-17 20:01] LABS: Absolute Eosinophils 0.1 K/uL (0-0.5); Absolute Lymphocytes (CBC) 1.9 K/uL (0.7-4.9); Absolute Monocytes 0.7 K/uL (0.1-1.3); Absolute Neutrophil 6.9 K/uL (1.8-8.0); Basophils % 0.5 % (0-1.3); Eosinophils % 1.3 % (0-4.4); Hematocrit 38.1 % (39.6-49.0); Lymphocytes % 19.5 % (15.3-44.8); MCH 30.8 pg (27.0-35.0); MCHC 34.2 g/dL (32.0-36.0); MCV 90.1 fL (80-100); Monocytes % 6.8 % (3.3-12.3); Neutrophils % 71.9 % (41.7-73.7); Platelets 295 thou/uL (152-406); RBC Red Blood Cell Count 4.23 M/uL (4.33-5.43); Red Cell Distribution Width 13.5 % (12.1-15.2)
[2024-06-17 20:06] LABS: PT Prothrombin Time 11.8 SECONDS (9.4-12.5); PTT, Activated Partial Thromb 28.6 SECONDS (24.3-36.9); Protime INR 1.06
[2024-06-17 20:19] LABS: Albumin 3.2 g/dL (3.4-5.0); Albumin/Globulin Ratio 0.7 (1.1-1.8); Anion Gap 8.8 mEq/L (5.0-15.0); Globulin 4.7 g/dL (2.3-3.5); Potassium 4.8 mEq/L (3.5-5.1); Protein, Total 7.9 g/dL (6.4-8.2)
--- NOTE | 2024-06-17 21:04 | ER ---
Nurse's Notes [facility] Name: Maik Stock Age: 48 yrs Sex: Male : 1975 Arrival Date: 06/17/2024 Time: 17:42 Bed 12 Private MD: Diagnosis: Foot Laceration/ Open wound of foot-right foot;Local infection of the skin and subcutaneous tissue, unspecified Presentation: 06/17 18:17 Chief complaint: Patient states: right foot, stepped on a nail two days ago. Foot does tm6 not hurt, but ankle and lower leg 5/10 pain. Has diabetes. Coronavirus screen: Client denies travel out of the [place] in the last 14 days. Ebola Screen: Patient negative for fever greater than or equal to 101.5 degrees Fahrenheit, and additional compatible Ebola Virus Disease symptoms Patient denies exposure to infectious person. Patient denies travel to an Ebola-affected area in the 21 days before illness onset. No symptoms or risks identified at this time. Initial Sepsis Screen: Does the patient meet any 2 criteria? No. Patient's initial sepsis screen is negative. Does the patient have a suspected source of infection? No. Patient's initial sepsis screen is negative. Risk Assessment: Do you want to hurt yourself or someone else? Patient reports no desire to harm self or others. Onset of symptoms was June 15, 2024. 18:17 Method Of Arrival: Ambulatory tm6 18:17 Acuity: JACQUE 3 tm6 Triage Assessment: 18:18 General: Appears in no apparent distress. Behavior is calm, cooperative. Pain: tm6 Complains of pain in right leg Pain currently is 5 out of 10 on a pain scale. Pain began 2-3 days ago. EENT: No signs and/or symptoms were reported regarding the EENT system. Neuro: Level of Consciousness is awake, alert, obeys commands, Oriented to person, place, time, situation. Cardiovascular: Patient's skin is warm and dry. Respiratory: Airway is patent Respiratory effort is even, unlabored, Respiratory pattern is regular, symmetrical. GI: No signs and/or symptoms were reported involving the gastrointestinal system. Abdomen is flat, non-distended. : No signs and/or symptoms were reported regarding the genitourinary system. Derm: Wound noted right foot Wound is stepped on nail. Musculoskeletal: Reports pain in right leg Pain is 5 out of 10 on a pain scale. Injury Description: Puncture sustained to right foot is stepped on nail was sustained 2 days ago. Historical: - Allergies: 18:18 No Known Allergies; tm6 - PMHx: 18:18 Diabetes - NIDDM; Hypertensive disorder; tm6 - PSHx: 18:18 I\T\D of wound to right medial foot; toe amputation; tm6 - Immunization history:: Flu vaccine is up to date. - Infectious Disease History:: Denies. - Social history:: Smoking status: Patient denies any tobacco usage or history of. Screenin:50 [facility] ED Fall Risk Assessment (Adult) History of falling in the last 3 months, jb4 including since admission No falls in past 3 months (0 pts) Confusion or Disorientation No (0 pts) Intoxicated or Sedated No (0 pts) Impaired Gait No (0 pts) Mobility Assist Device Used No (0 pt) Altered Elimination No (0 pt) Score/Fall Risk Level 0 - 2 = Low Risk Oriented to surroundings, Maintained a safe environment. Abuse screen: Denies threats or abuse. Nutritional screening: No deficits noted. Tuberculosis screening: No symptoms or risk factors identified. Assessment: 19:15 General: Appears in no apparent distress. comfortable, Behavior is calm, cooperative, jb4 appropriate for age. Pain: Denies pain. Neuro: Level of Consciousness is awake, alert, obeys commands, Oriented to person, place, time, situation. Cardiovascular: Patient's skin is warm and dry. Respiratory: Airway is patent Respiratory effort is even, unlabored, Respiratory pattern is regular, symmetrical. Derm: Skin is intact, Skin is pink, warm \T\ dry. Musculoskeletal: Circulation, motion, and sensation intact. Range of motion: intact in all extremities, Swelling present in right foot. 20:15 Reassessment: Patient appears in no apparent distress at this time. Patient and/or jb4 family updated on plan of care and expected duration. Pain level reassessed. Patient is alert, oriented x 3, equal unlabored respirations, skin warm/dry/pink. 21:15 Reassessment: Patient appears in no apparent distress at this time. Patient and/or jb4 family updated on plan of care and expected duration. Pain level reassessed. Patient is alert, oriented x 3, equal unlabored respirations, skin warm/dry/pink. Vital Signs: 18:16 BP 126 / 62; Pulse 48; Resp 19; Temp 97.6(TE); Pulse Ox 100% on R/A; MAP 79 mmHg; tm6 Weight 88.45 kg; Height 5 ft. 10 in. ; Pain 5/10; 21:00 BP 146 / 68; Pulse 88; Resp 16; Temp 98.7(O); Pulse Ox 100% ; jb4 22:00 BP 122 / 71; Pulse 79; Resp 16; Pulse Ox 100% on R/A; jb4 18:16 Body Mass Index 27.98 (88.45 kg, 177.8 cm) tm6 18:16 Pain Scale: Adult tm6 ED Course: 17:48 Patient arrived in ED. sj2 17:51 [facility] kb 17:51 Mohan Souza MD is Attending Physician. kb 18:18 Triage completed. tm6 18:18 Arm band placed on right wrist. tm6 18:47 Foot Right 3 View XRAY In Process Unspecified. EDMS 19:30 Missed attempt(s): 20 gauge in right antecubital area. Bleeding controlled, band aid sa1 applied, catheter tip intact. 19:40 Initial lab(s) drawn, by me, sent to lab. First set of blood cultures drawn by me. vk 19:50 Missed attempt(s): 20 gauge in right in left. vk 19:52 Blood Culture Adult (2) Sent. vk 19:52 CBC with Diff Sent. vk 19:52 CMP Sent. vk 19:52 Lactate w/ 2H reflex if indic. Sent. vk 19:52 Protime (+inr) Sent. vk 19:52 Ptt, Activated Sent. vk 21:02 Elise Brian MD is Hospitalizing Provider. kb 21:20 Inserted saline lock: 20 gauge in left antecubital area, using aseptic technique. vc1 Flushed with 10 mL NS. 21:48 Ameya Sanz, SUBHASH is Primary Nurse. jb4 21:50 Patient has correct armband on for positive identification. Bed in low position. Call jb4 light in reach. Side rails up X 1. Provided Education on: plan of care. 23:45 No provider procedures requiring assistance completed. Patient admitted, IV remains in jb4 place. Administered Medications: 21:52 Drug: vancoMYCIN IVPB 1 grams IVPB once over 2 hrs Route: IVPB; Infused Over: 2 hrs; jb4 Site: left antecubital; 23:44 Follow up: Response: No adverse reaction; IV Status: Infusion continued upon admission jb4 22:52 Drug: Boostrix Tdap IM 0.5 ml IM once; as a single dose Route: IM; Site: right deltoid; jb4 23:44 Follow up: Response: No adverse reaction jb4 Outcome: 21:03 Decision to Hospitalize by Provider. kb 23:45 Admitted to Med/surg accompanied by tech, via wheelchair, room 222, with chart, jb4 23:45 Condition: stable 23:45 Discharge instructions given to patient, Instructed on the need for admit, Demonstrated understanding of instructions, 23:46 Patient left the ED. jb4 Signatures: Dispatcher [employer] EDMS Naa Turpin, ELECTRIC KNIFE OPERATORJose ArmandoC ELECTRIC KNIFE OPERATOR-Ameya Grimm RN RN jb4 Berta Sorenson RN RN vc1 Alexia Adams RN RN [email or web address] Audelia Kline Sultan 1 Elen Dawson 2 Corrections: (The following items were deleted from the chart) 21:57 21:00 BP 146 / 68; Pulse 45bpm; Resp 16bpm; Pulse Ox 100%; Temp 98.7F Oral; jb4 jb4
--- NOTE | 2024-06-17 21:04 | EDPHYS ---
Physician Documentation [facility] Name: Maik Stock Age: 48 yrs Sex: Male : 1975 Arrival Date: 06/17/2024 Time: 17:42 Bed 12 Private MD: ED Physician Mohan Souza HPI: 06/17 21:43 This 48 yrs old Male presents to ER via Ambulatory with complaints of Foot kb Injury. 21:43 Patient is a 48-year-old male with a history of diabetes who presents for wound on the kb bottom of right foot that started 2 days ago after stepping on a nail. States wound has been getting bigger and is developed swelling and redness. Denies fever. No aggravating or alleviating factors.. Historical: - Allergies: 18:18 No Known Allergies; tm6 - PMHx: 18:18 Diabetes - NIDDM; Hypertensive disorder; tm6 - PSHx: 18:18 I\T\D of wound to right medial foot; toe amputation; tm6 - Immunization history:: Flu vaccine is up to date. - Infectious Disease History:: Denies. - Social history:: Smoking status: Patient denies any tobacco usage or history of. ROS: 19:34 Constitutional: As per HPI kb Exam: 19:33 Constitutional: This is a well developed, well nourished patient who is awake, alert, kb and in no acute distress. Head/Face: Normocephalic, atraumatic. ENT: Moist Mucous membranes Cardiovascular: Regular rate Respiratory: Respirations even and unlabored. No increased work of breathing. Talking in full sentences MS/ Extremity: Pulses equal, no cyanosis. Neurovascular intact. Full, normal range of motion. Neuro: Awake and alert, GCS 15, oriented to person, place, time, and situation. 19:33 ECG was reviewed by the Attending Physician. 19:33 Skin: injury, open wound to bottom of right foot with surrounding edema and erythema, Vital Signs: 18:16 BP 126 / 62; Pulse 48; Resp 19; Temp 97.6(TE); Pulse Ox 100% on R/A; MAP 79 mmHg; tm6 Weight 88.45 kg; Height 5 ft. 10 in. ; Pain 5/10; 21:00 BP 146 / 68; Pulse 88; Resp 16; Temp 98.7(O); Pulse Ox 100% ; jb4 22:00 BP 122 / 71; Pulse 79; Resp 16; Pulse Ox 100% on R/A; jb4 18:16 Body Mass Index 27.98 (88.45 kg, 177.8 cm) tm6 18:16 Pain Scale: Adult tm6 MDM: 17:51 Medical Screening Exam initiated kb 21:42 Differential diagnosis: Cellulitis, osteomyelitis, nonhealing wound, diabetic ulcer. kb Data reviewed: vital signs, nurses notes. Consideration of Admission/Observation Patient was admitted/placed on observation. Escalation of care including admission/observation considered. Management of patient was discussed with the following: Hospitalist: Dr. Brian accepts patient for admission. Care significantly affected by the following chronic conditions: Diabetes. Counseling: I had a detailed discussion with the patient and/or guardian regarding the historical points, exam findings, and any diagnostic results supporting the discharge/admit diagnosis, lab results, radiology results, the need for further work-up and treatment in the hospital. 06/17 18:20 Order name: Blood Culture Adult (2) kb 06/17 18:20 Order name: CBC with Diff; Complete Time: 20:12 kb 06/17 18:20 Order name: CMP; Complete Time: 20:20 kb 06/17 18:20 Order name: Lactate w/ 2H reflex if indic.; Complete Time: 20:14 kb 06/17 18:20 Order name: Protime (+inr); Complete Time: 20:12 kb 06/17 18:20 Order name: Ptt, Activated; Complete Time: 20:12 kb 06/17 22:12 Order name: Urinalysis w/ reflexes EDMS 06/17 22:12 Order name: CBC with Automated Diff EDMS 06/17 22:12 Order name: CBC with Automated Diff EDMS 06/17 22:12 Order name: Comprehensive Metabolic Panel EDMS 06/17 22:12 Order name: Comprehensive Metabolic Panel EDMS 06/17 18:20 Order name: Foot Right 3 View XRAY; Complete Time: 18:54 kb 06/17 22:18 Order name: MRA Foot Right EDMS 06/17 18:20 Order name: EKG - Nurse/Tech; Complete Time: 19:52 kb 06/17 18:20 Order name: IV Saline Lock - Large Bore; Complete Time: 21:35 kb 06/17 18:20 Order name: Labs collected and sent; Complete Time: 19:53 kb 06/17 18:20 Order name: O2 Per Protocol; Complete Time: 19:52 kb 06/17 18:20 Order name: O2 Sat Monitoring; Complete Time: 19:52 kb 06/17 18:20 Order name: Vital Signs; Complete Time: 20:31 kb EC:33 Rate is 88 beats/min. Rhythm is regular. QRS Alliance is Normal. OR interval is normal at kb 166 msec. QRS interval is normal at 108 msec. QT interval is normal at 435 msec. Administered Medications: 21:52 Drug: vancoMYCIN IVPB 1 grams IVPB once over 2 hrs Route: IVPB; Infused Over: 2 hrs; jb4 Site: left antecubital; 23:44 Follow up: Response: No adverse reaction; IV Status: Infusion continued upon admission jb4 22:52 Drug: Boostrix Tdap IM 0.5 ml IM once; as a single dose Route: IM; Site: right deltoid; jb4 23:44 Follow up: Response: No adverse reaction jb4 Disposition Summary: 06/17/24 21:03 Hospitalization Ordered Notes: Hospitalization Status: Observation kb Provider: Elise Brian Location: Telemetry/MedSurg (observation) kb Condition: Stable kb Problem: new kb Symptoms: are unchanged kb Bed/Room Type: Standard Room Assignment: 222(06/17/24 22:41) jb4 Diagnosis - Foot Laceration/ Open wound of foot - right foot kb - Local infection of the skin and subcutaneous tissue, unspecified kb Forms: - Medication Reconciliation Form kb - SBAR form kb - Leadership Thank You Letter kb Signatures: Dispatcher [employer] Naa Best, TYREE-C DEPARTMENT SPECIALIST-Ameya Grimm, RN RN jb4 Alexia Adams RN RN tm6 Corrections: (The following items were deleted from the chart) 18:21 18:21 Foot Right 3 View+RAD.RAD.BRZ ordered. [facility] EDFL 22:41 21:03 kb jb4
[2024-06-17] MEDS ORDERED: VANCOMYCIN 1 GM/VIAL ONE (21:34)
[2024-06-17] MEDS ORDERED: NA CHLORIDE 0.9% 250 ML ONE (21:35)
[2024-06-17] MEDS ORDERED: GLUCAGON 1 MG/VIAL IM PRN (22:07)
[2024-06-17] MEDS ORDERED: D10W 125 ML IV PRN (22:07)
[2024-06-17] MEDS ORDERED: ACETAMINOPHEN 500 MG TAB PO PRN (22:07)
--- NOTE | 2024-06-17 22:07 | P.HP ---
Certification for Inpatient Patient admitted to: Inpatient With expected LOS: >2 Midnights Practitioner: I am a practitioner with admitting privileges, knowledge of patient current condition, hospital course, and medical plan of care. Services: Services provided to patient in accordance with Admission requirements found in Title 42 Section 412.3 of the Code of Federal Regulations Patient History Date of Service: 06/17/24 Reason for admission: foot infection History of Present Illness: 48-year-old male with history of diabetes presented to ER with complaints of stepping on a nail 2 days ago. Patient reports increased pain swelling. Patient does have history of partial foot amputation. X-ray done in the ER. cultures sent. tetanus shot requested Allergies No Known Drug Allergies Allergy (Verified 02/05/24 11:43) Unknown Home Medications: Metformin HCl [Metformin ER Osmotic] 1,000 mg PO BID 02/06/17 Insulin Glargine,Hum.rec.anlog [Lantus] 30 units SQ BEDTIME 09/05/20 Atorvastatin Calcium 40 mg PO DAILY 10/24/21 Dapagliflozin Propanediol [Farxiga] 10 mg PO DAILY 10/24/21 Lisinopril [Zestril] 2.5 mg PO DAILY 10/24/21 Metoprolol Succinate 25 mg PO DAILY 02/04/24 Semaglutide [Ozempic] 2 mg EVERY 7TH DAY 02/04/24 - Past Medical/Surgical History Diabetic: Yes -: IDDM -: Neuropathy -: Sleep apnea -: Hypertension -: Right great toe partial-amputation -: Right knee replacement -: Excisional subQ debridement necrotic wound left thigh -: L foot surgery Psychosocial/ Personal History: Patient is . - Family History Mother -: Hypertension, Diabetes Father -: Diabetes - Social History Alcohol use: Yes CD- Drugs: No Caffeine use: No Review of Systems 10-point ROS is otherwise unremarkable Physical Examination - Physical Exam General: Alert, Oriented x3 HEENT: Atraumatic, Normocephalic Respiratory: Clear to auscultation bilaterally, Normal air movement Cardiovascular: Regular rate/rhythm Gastrointestinal: Normal bowel sounds Musculoskeletal: Other (right foot plantar swelling,toe amputation partial ) - Studies Laboratory Data (last 24 hrs) 06/17/24 06/17/24 06/17/24 19:43 19:43 19:43 WBC 9.60 Hgb 13.0 L Hct 38.1 L Plt Count 295 PT 11.8 INR 1.06 APTT 28.6 Sodium 132 L Potassium 4.8 BUN 24 H Creatinine 1.43 H Glucose 188 H Total Bilirubin 1.0 AST 24 ALT 33 Alkaline Phosphatase 106 Assessment and Plan - Problems (Diagnosis) (1) Foot infection Current Visit: Yes Status: Acute (2) Hypertension Current Visit: No Status: Chronic Qualifiers: (3) Type 2 diabetes mellitus Current Visit: No Status: Chronic Qualifiers: - Plan 48-year-old male presents to the ER after stepping on a nail 2 days ago. Diabetic foot infection Diabetes Neuropathy Hypertension Plan: Admit to medical floor Follow-up cultures Start IV vancomycin and Rocephin A tetanus shot was requested Fingerstick blood sugars sliding scale insulin Await home medication reconciliation MRI foot Will likely need podiatry or orthopedic consultation - Advance Directives Does patient have a Living Will: No Does patient have a Durable POA for Healthcare: No
[2024-06-17] MEDS ORDERED: TDAP (DIPHTH,PERTUSS(ACELL),TET VAC) 0.5 ML VIAL IMVAC ONE (22:46)
[2024-06-17] MEDS: VANCOMYCIN 500 MG in NA CHLORIDE 0.9% 100 ML IVPB ONE (23:00)
[2024-06-17] MEDS ORDERED: VANCOMYCIN 1 GM in NA CHLORIDE 0.9% 250 ML IVPB SCH (23:00)
[2024-06-18 00:48] VITALS: BMI 26.7
[2024-06-18] MEDS: VANCOMYCIN 500 MG in NA CHLORIDE 0.9% 100 ML IVPB ONE (01:01)
[2024-06-18] MEDS: HEPARIN 5000 UNIT/ML 1 ML VIAL SQ SCH (01:02)
[2024-06-18 06:24] LABS: Absolute Eosinophils 0.2 K/uL (0-0.5); Absolute Lymphocytes (CBC) 1.9 K/uL (0.7-4.9); Absolute Monocytes 0.5 K/uL (0.1-1.3); Absolute Neutrophil 3.8 K/uL (1.8-8.0); Basophils % 0.7 % (0-1.3); Eosinophils % 3.6 % (0-4.4); Hematocrit 35.4 % (39.6-49.0); Hemoglobin 12.1 g/dL (13.6-17.9); Lymphocytes % 29.8 % (15.3-44.8); MCH 30.8 pg (27.0-35.0); MCHC 34.2 g/dL (32.0-36.0); MPV 7.8 fL (7.6-11.3); Monocytes % 7.7 % (3.3-12.3); Neutrophils % 58.2 % (41.7-73.7); Nucleated Red Blood Cells % 0.1 % (0-0); Platelets 285 thou/uL (152-406); RBC Red Blood Cell Count 3.94 M/uL (4.33-5.43); Red Cell Distribution Width 13.5 % (12.1-15.2)
[2024-06-18 06:32] LABS: Albumin/Globulin Ratio 0.7 (1.1-1.8); Bilirubin Total 0.9 mg/dL (0.2-1.0); Globulin 4.1 g/dL (2.3-3.5); Protein, Total 7.1 g/dL (6.4-8.2)
[2024-06-18] MEDS: INSULIN REGULAR (HUMAN) 100 UNIT/ML SQ SCH (07:30)
[2024-06-18 08:26] LABS: Specific Gravity 1.011 (1.005-1.030); Sqamous Epithelial None Seen /HPF (None Seen); Urine Bacteria None Seen /HPF (<20); Urine Bilirubin NEGATIVE (Negative); Urine Blood Negative (Negative); Urine Clarity Clear (Clear); Urine Color Light-Yellow (Yellow); Urine Culture Reflex Order NOT NEEDED; Urine Glucose 1+ (Negative); Urine Ketones NEGATIVE (Negative); Urine Microscopic Reflex YN ORDER UMIC; Urine Mucus Slight /HPF (None Seen); Urine Nitrite NEGATIVE (Negative); Urine Protein NEGATIVE (Negative); Urine RBC None Seen /HPF (None Seen); Urine Urobilinogen Normal (Normal); Urine WBC <5 /HPF (<5)
[2024-06-18] MEDS: CEFTRIAXONE 1,000 MG in NA CHLORIDE 0.9% 50 ML IVPB SCH (09:00)
[2024-06-18] MEDS: VANCOMYCIN 1.25 GM in NA CHLORIDE 0.9% 250 ML IVPB SCH (09:48)
[2024-06-18] MEDS: TDAP (DIPHTH,PERTUSS(ACELL),TET VAC) 0.5 ML VIAL IMVAC ONE (09:49)
[2024-06-18] MEDS: CEFTRIAXONE 2,000 MG in NA CHLORIDE 0.9% 100 ML IV SCH (10:08)
[2024-06-18] MEDS: VANCOMYCIN 1.5 GM in NA CHLORIDE 0.9% 500 ML IVPB SCH (12:29)
--- NOTE | 2024-06-18 15:34 | RAD REPORT ---
EXAM: MRI of the right foot without contrast HISTORY: Evaluate for osteomyelitis. osteomyelitis COMPARISON: 02/04/2024. Recent plain radiograph 06/17/2024 TECHNIQUE: Multiplanar multisequence MR images were obtained of the right foot without contrast. FINDINGS: Previous amputation great toe noted. Focal abnormal diminished T1 signal elevated T2 signal seen late ral aspect of the first metatarsal head. There is also moderate abnormal signal second metatarsal shaft and head and to a lesser extent base of the proximal phalanx of second toe. Ununited fracture s een second metatarsal head.In addition there is subtle signal abnormality seen third metatarsal head as well as the base of the proximal phalanx of the third toe. These findings likely indicate ost eomyelitis. No focal fluid collection. The muscles and tendons appear intact. Moderate soft tissue swelling seen mid and forefoot. Focal thi ckening measuring up to 7 mm of the proximal plantar fascia likely fibroma. Moderate edema is noted involving the calcaneus, favored to represent stress response. IMPRESSION: Moderate osteomyelitis changes as detailed above. Please note that evaluation is limited without IV contrast.
--- NOTE | 2024-06-18 17:59 | RAD REPORT ---
EXAMINATION: ONE VIEW CHEST XR CLINICAL INDICATION: PICC line placement TECHNIQUE: Frontal chest projection is submitted. Examination is limited by patient positioning and t echnique. COMPARISON: No prior exam. FINDINGS: Right PICC line is in place with its tip in SVC. The lungs are clear. The heart is normal in size.
[2024-06-18] MEDS ORDERED: VANCOMYCIN 1.5 GM in NA CHLORIDE 0.9% 500 ML IVPB SCH (19:00)
[2024-06-18] MEDS: Mupirocin NASAL 2 APPL/1 GM TUBE NAS SCH (20:06)
--- NOTE | 2024-06-18 20:31 | P.PN ---
Subjective Date of Service: 06/19/24 Chief Complaint: foot infection right Foot infection, MRI ordered rule out osteomyelitis <Laurita Miguel - Last Filed: 06/19/24 18:07> Date of Service: 06/18/24 <Ayaka Cason - Last Filed: 06/23/24 10:16> Review of Systems 10-point ROS is otherwise unremarkable <Laurita Miguel - Last Filed: 06/19/24 18:07> Physical Examination - Vital Signs Temperature: 98.5 F Blood Pressure: 151/73 Pulse: 84 Respirations: 18 Pulse Ox (%): 99 - Physical Exam General: Alert, In no apparent distress, Oriented x3 HEENT: Atraumatic, Normocephalic Neck: Supple, 2+ carotid pulse no bruit, JVD not distended Respiratory: Clear to auscultation bilaterally, Normal air movement Cardiovascular: Normal pulses, Regular rate/rhythm Capillary refill: <2 Seconds Gastrointestinal: Normal bowel sounds, Soft and benign Musculoskeletal: No clubbing, Other (Weakness due to right lower foot diabetic ulcer covered with dry dressing) Integumentary: Other (Right lower extremity edema, erythema, cover with dry dressing) Neurological: Normal speech, Normal strength at 5/5 x4 extr, Sensation intact <Laurita Miguel - Last Filed: 06/19/24 18:07> - Studies Microbiology Data (last 24 hrs): 06/17/24 19:55 Blood - Blood Aerobic Blood Culture - Final No growth in 5 days. 06/17/24 19:55 Blood - Blood Anaerobic Blood Culture - Final No growth in 5 days. 06/17/24 19:40 Blood - Blood Aerobic Blood Culture - Final No growth in 5 days. 06/17/24 19:40 Blood - Blood Anaerobic Blood Culture - Final No growth in 5 days. 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 Diabetic foot infection Diabetes Neuropathy Hypertension Plan: Admit to medical floor Follow-up cultures Start IV vancomycin and Rocephin A tetanus shot was requested Fingerstick blood sugars sliding scale insulin Await home medication reconciliation MRI foot OM RLE Will likely need podiatry or orthopedic consultation - Advance Directives Does patient have a Living Will: No Does patient have a Durable POA for Healthcare: No Discharge Plan: Home - Code Status/Comfort Care Code Status: Full Code Critical Care: No Time Spent Managing PTS Care (In Minutes): 35 <Laurita Miguel - Last Filed: 06/19/24 18:07> Date of Service: 06/18/24 Patient was seen and examined. Events of the last 24 hours have been noted. Spoke with with SHARI regarding patient's clinical picture after evaluating and examining the patient independently. I performed a substantial part of the MDM during this patient's care today. I personally made or approved the documented management plan and acknowledge its risk of complications. I agree with the findings and documentation provided in the SHARI's notes. <Ayaka Cason - Last Filed: 06/23/24 10:16>
[2024-06-18] MEDS: INSULIN GLARGINE 100 UNIT/ML SQ SCH (20:44)
[2024-06-18] MEDS: ATORVASTATIN 40 MG TAB PO SCH (20:45)
[2024-06-18] MEDS: METOPROLOL XL 25 MG TAB PO SCH (20:45)
[2024-06-18] MEDS ORDERED: CEFTRIAXONE 2,000 MG in NA CHLORIDE 0.9% 100 ML IV SCH (21:00)
[2024-06-19 08:46] LABS: Absolute Eosinophils 0.1 K/uL (0-0.5); Absolute Monocytes 0.4 K/uL (0.1-1.3); Absolute Neutrophil 3.7 K/uL (1.8-8.0); Basophils % 0.7 % (0-1.3); Eosinophils % 1.9 % (0-4.4); Hematocrit 36.6 % (39.6-49.0); Hemoglobin 12.3 g/dL (13.6-17.9); Lymphocytes % 19.5 % (15.3-44.8); MCH 30.2 pg (27.0-35.0); MCHC 33.8 g/dL (32.0-36.0); MCV 89.3 fL (80-100); MPV 7.4 fL (7.6-11.3); Monocytes % 7.8 % (3.3-12.3); Neutrophils % 70.1 % (41.7-73.7); Nucleated Red Blood Cells % 0.1 % (0-0); Platelets 317 thou/uL (152-406); RBC Red Blood Cell Count 4.09 M/uL (4.33-5.43); Red Cell Distribution Width 13.1 % (12.1-15.2)
[2024-06-19 09:13] LABS: Albumin 2.9 g/dL (3.4-5.0); Phosphorus 2.6 mg/dL (2.5-4.9)
[2024-06-19] MEDS ORDERED: LIDOCAINE 2% MPF 5 ML VIAL ONE (13:43)
[2024-06-19] MEDS ORDERED: FENTANYL CITR 100 MCG/2 ML ONE (13:43)
[2024-06-19] MEDS ORDERED: ONDANSETRON 4 MG/2 ML VIAL ONE (13:43)
[2024-06-19] MEDS ORDERED: propofoL 200 MG/20 ML VIAL IV ONE (13:43)
[2024-06-19] MEDS ORDERED: MIDAZOLAM HCL 2 MG/2 ML INJ ONE (13:44)
[2024-06-19] MEDS: COLLAGENASE 30 GM OINTMENT TOP ONE (13:50)
[2024-06-19] MEDS ORDERED: dexAMETHasone 4 MG/ML VIAL ONE (14:04)
[2024-06-19] MEDS: NA CHLORIDE 0.9% 1,000 ML ONE (14:06)
--- NOTE | 2024-06-19 14:28 | P.BOP ---
Preoperative diagnosis: infected diabetic ulcer right foot with abscess and osteomyelitis Postoperative diagnosis: same Primary procedure: Excisional debridment infected diabetic ulcer right foot Secondary procedure: with abscess drainage 4 x 4 x 1.5cm Estimated blood loss: <10cc Specimen: tissue Findings: as above Anesthesia: General Complications: None Drain(s): Other (iodoform packing) Transferred to: Recovery Room Condition: Good
--- NOTE | 2024-06-19 16:25 | CON ---
Date of Consultation: 06/18/2024 Reason For Service: Right foot cellulitis, nonhealing wound, possible osteomyelitis. History Of Present Illness: This is the case of a 48-year-old patient known by us due to history of right foot osteomyelitis and also of diabetic ulcers. Now he has a new wound on the lateral side. N ormally everything is in the medial side on him. He notices fluid coming out. He recognized the sym ptoms and the signs and he came to the ER, admitted for IV antibiotics, possible osteomyelitis, and a surgical consult was obtained for debridement. He denies any trauma. He always have to walk. He i s working, but he is trying to use the proper shoes. He was advised the importance of offloading and using proper shoe wear, and also diabetes control. Allergies: NONE. Medications: Included metformin, Farxiga, metoprolol, Ozempic. Past Medical History: Includes diabetes, neuropathy, sleep apnea, hypertension. Past Surgical History: Includes right great toe amputation and knee replacement. Family History: Includes diabetes. Social History: He does not smoke. He does not drink alcohol. Review of Systems: No fever. No shortness of breath. No chest pain. The patient has a secretion from the right foot. 10 points, otherwise, unremarkable. Physical Examination: Vital Signs: Reviewed. General: Patient is awake and alert. HEENT: Pupils are equal and reactive. Anicteric. Neck: Supple. Chest: Clear. Heart: S1, S2. Abdomen: Soft and depressible. No guarding or rebound. Extremities: Capillary refill still present. Dorsalis pedis pulses diminished but present. It is c hronic on him. He was advised in the past to see his vascular doctors. Integumentary: Right lateral plantar surface open wound with cellulitis present. There is a cavity underneath and fluctuance. Laboratory Data: Blood work shows WBC count of 6.5 with hemoglobin of 12.1. Sodium is 137, BUN is 1 8, glucose 129. MRI of the foot shows moderate osteomyelitis. Assessment: This is 48-year-old patient with infected diabetic ulcer on the right foot and osteomyel itis. We are going to go for first debridement and Infectious Disease will be seeing him for chronic IV antibiotics. The benefits, alternatives, and risks of debridement fully explained which include, but not limited to, infection, bleeding, damage to adjacent structures, anesthesia complication, non healing wound, [place], and even . He also understands this may not relieve any symptoms. He might need more than one surgical intervention. We also emphasized to him the importance of offloading, di abetes control, and seeing his vascular doctors to see if there is anything he can improve to improve circulation. NOHEMI/MODL Voice ID: [id number] Report ID: [id number]
--- NOTE | 2024-06-19 17:28 | OP ---
Date of Procedure: 06/19/2024 Surgeon: Shakir Murrieta MD Reason For Service: Infected diabetic right foot ulcer with abscess and osteomyelitis. Postoperative Diagnosis: Infected diabetic right foot ulcer with abscess and osteomyelitis. Procedure: Excisional debridement down to subcutaneous of the right foot infected diabetic ulcer wit h drainage of an abscess. It is about 4 x 4 x 1.5 cm. Anesthesia: General plus local. Complications: None. Packing: Iodoform. Indications: This is the case of a 48-year-old patient with diabetes, found to have a draining ulcer on the right foot, found to have osteomyelitis and an abscess and necrotic infected ulcers, so we of fered excisional debridement and drainage of an abscess with benefits, alternatives, and risks includ ing, but not limited to, infection, bleeding, damage to adjacent structures, anesthesia complication, nonhealing wound, FL, and even . They also understands this may not relieve any symptoms. He might need more than one surgical intervention. He understands the importance of following up with h is diabetes control, offloading, diabetic shoes, even his vascular doctor. He signed a consent. Description Of Procedure: The area of concern was marked by me and the patient in the holding room. Patient was brought to the operating room, placed in supine position. Anesthesia was induced withou t complication. The right foot was prepped and draped in sterile fashion. A time-out was called. L ocal anesthesia was applied followed by sharp incision of the skin, underneath we noticed to be a nallely betic ulcer. It is about 4 x 4 cm area. It goes all the way down to muscle and tendon. Area was ir rigated. Hemostasis was obtained. No bone was exposed, and then after that, we packed the area with iodoform. Cultures were obtained at the beginning. The patient tolerated the procedure well. Millie ent sent to Recovery in stable condition. Sponge counts and instrument counts were correct. HM/MODL Voice ID: [id number] Report ID: [id number]
--- NOTE | 2024-06-19 17:50 | P.PN ---
Date of Service: 06/19/24 Subjective Chief Complaint: foot infection NPO for ID R) foot today Review of Systems 10-point ROS is otherwise unremarkable Physical Examination - Vital Signs reviewed - Physical Exam General: Alert, In no apparent distress, afebrile HEENT: Atraumatic, Normocephalic Neck: Supple, Respiratory: Clear to auscultation bilaterally, Normal air movement Cardiovascular: +pulses, mild RLE edema Capillary refill: <2 Seconds Gastrointestinal: Normal bowel sounds, Soft and benign Musculoskeletal: No clubbing, Other (Weakness due to right lower foot diabetic ulcer covered with dry dressing) Integumentary: Other (Right lower extremity edema, erythema, cover with dry dressing) Neurological: Normal speech, Normal strength at 5/5 x4 extr, Sensation intact Assessment And Plan - Current Problems (Diagnosis) (1) Osteomyelitis of foot, right, acute Current Visit: Yes Status: Acute (2) Ulcer of right foot due to type 2 diabetes mellitus Current Visit: Yes Status: Acute (3) History of amputation of toe Current Visit: Yes Status: Acute (4) Hypertension Current Visit: No Status: Chronic Qualifiers: (5) Type 2 diabetes mellitus Current Visit: No Status: Chronic Qualifiers: Diabetes mellitus nursing home insulin use: without nursing home use Diabetes mellitus complication status: with skin complications - Plan - Plan 48-year-old male presents to the ER after stepping on a nail 2 days ago. Diabetic foot infection Diabetes Neuropathy Hypertension Plan: Admit to medical floor Follow-up cultures Start IV vancomycin and Rocephin, PICC line placed for IV ABX after discharge A tetanus shot was requested Fingerstick blood sugars sliding scale insulin Await home medication reconciliation MRI foot OM RLE- Moderate osteomyelitis-The muscles and tendons appear intact. Moderate soft tissue swelling seen mid and forefoot. Focal thickening measuring up to 7 mm of the proximal plantar fascia likely fibroma. Moderate edema is noted involving the calcaneus, favored to represent stress response 06/19 S/p ID Excisional debridment infected diabetic ulcer right foot, abscess drainage 4 x 4 x 1.5cm, (iodoform packing) - Advance Directives Does patient have a Living Will: No Does patient have a Durable POA for Healthcare: No Discharge Plan: Home - Code Status/Comfort Care Code Status: Full Code Critical Care: No Time Spent Managing PTS Care (In Minutes): 35 <Laurita Miguel - Last Filed: 06/19/24 18:07> Patient was seen and examined. Events of the last 24 hours have been noted. Spoke with with SHARI regarding patient's clinical picture after evaluating and examining the patient independently. I performed a substantial part of the MDM during this patient's care today. I personally made or approved the documented management plan and acknowledge its risk of complications. I agree with the findings and documentation provided in the SHARI's notes. <Ayaka Cason - Last Filed: 06/23/24 10:17>
[2024-06-19 21:18] VITALS: TEMP 98.2
[2024-06-20 06:36] LABS: Absolute Lymphocytes (CBC) 1.8 K/uL (0.7-4.9); Absolute Monocytes 0.6 K/uL (0.1-1.3); Absolute Neutrophil 4.5 K/uL (1.8-8.0); Basophils % 0.4 % (0-1.3); Eosinophils % 0.2 % (0-4.4); Hematocrit 36.7 % (39.6-49.0); Hemoglobin 12.6 g/dL (13.6-17.9); Lymphocytes % 25.3 % (15.3-44.8); MCH 30.8 pg (27.0-35.0); MCHC 34.2 g/dL (32.0-36.0); MCV 90.1 fL (80-100); Monocytes % 8.8 % (3.3-12.3); Neutrophils % 65.3 % (41.7-73.7); Platelets 315 thou/uL (152-406); RBC Red Blood Cell Count 4.07 M/uL (4.33-5.43); Red Cell Distribution Width 12.9 % (12.1-15.2)
[2024-06-20 06:39] LABS: Albumin 2.7 g/dL (3.4-5.0); Anion Gap 10.1 mEq/L (5.0-15.0); Phosphorus 2.7 mg/dL (2.5-4.9); Potassium 4.1 mEq/L (3.5-5.1)
[2024-06-21 05:50] LABS: Absolute Basophils 0.1 K/uL (0-0.5); Absolute Eosinophils 0.2 K/uL (0-0.5); Absolute Lymphocytes (CBC) 2.2 K/uL (0.7-4.9); Absolute Monocytes 0.5 K/uL (0.1-1.3); Absolute Neutrophil 3.1 K/uL (1.8-8.0); Eosinophils % 2.7 % (0-4.4); Hematocrit 37.4 % (39.6-49.0); Hemoglobin 12.7 g/dL (13.6-17.9); Lymphocytes % 37.1 % (15.3-44.8); MCH 30.3 pg (27.0-35.0); MCHC 33.9 g/dL (32.0-36.0); MCV 89.3 fL (80-100); MPV 7.3 fL (7.6-11.3); Monocytes % 7.9 % (3.3-12.3); Neutrophils % 51.3 % (41.7-73.7); Nucleated Red Blood Cells % 0.1 % (0-0); Platelets 345 thou/uL (152-406); RBC Red Blood Cell Count 4.18 M/uL (4.33-5.43); Red Cell Distribution Width 12.8 % (12.1-15.2)
[2024-06-21 06:15] LABS: Albumin 2.8 g/dL (3.4-5.0); Anion Gap 6.8 mEq/L (5.0-15.0); Phosphorus 3.4 mg/dL (2.5-4.9); Potassium 3.8 mEq/L (3.5-5.1)
[2024-06-21] MEDS: METOPROLOL TARTRATE 5 MG/5 ML INJ IV STA (13:37)
[2024-06-21] MEDS: AMLODIPINE 5 MG TAB PO ONE (13:38)
--- NOTE | 2024-06-21 17:20 | P.PN ---
Date of Service: 06/20/24 Subjective Chief Complaint: foot infection Pending insurance authorization for IV antibiotics no reported pain, Quad cane ordered for DME at discharge Review of Systems 10-point ROS is otherwise unremarkable Physical Examination - Vital Signs reviewed - Physical Exam General: Alert, oriented x 3 HEENT: Atraumatic, Normocephalic Neck: Supple, Respiratory: Clear to auscultation bilaterally, unlabored Cardiovascular: +pulses, mild RLE edema Capillary refill: <2 Seconds Gastrointestinal: Normal bowel sounds, Soft and benign Musculoskeletal: No clubbing, Other generalized weakness, right lower extremity Integumentary: Other (Right lower extremity, dressed dry intact) Neurological: Normal speech, Normal strength at 5/5 x4 extr, Sensation intact Assessment And Plan - Current Problems (Diagnosis) (1) Osteomyelitis of foot, right, acute Current Visit: Yes Status: Acute (2) Ulcer of right foot due to type 2 diabetes mellitus Current Visit: Yes Status: Acute (3) History of amputation of toe Current Visit: Yes Status: Acute (4) Hypertension Current Visit: No Status: Chronic Qualifiers: (5) Type 2 diabetes mellitus Current Visit: No Status: Chronic 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 Diabetic foot infection Diabetes Neuropathy Hypertension Plan: Admit to medical floor Follow-up cultures Start IV vancomycin and Rocephin, PICC line placed for IV ABX after discharge A tetanus shot was requested Fingerstick blood sugars sliding scale insulin Await home medication reconciliation MRI foot OM RLE- Moderate osteomyelitis-The muscles and tendons appear intact. Moderate soft tissue swelling seen mid and forefoot. Focal thickening measuring up to 7 mm of the proximal plantar fascia likely fibroma. Moderate edema is noted involving the calcaneus, favored to represent stress response / S/p ID Excisional debridment infected diabetic ulcer right foot, abscess drainage 4 x 4 x 1.5cm, (iodoform packing) - Advance Directives Does patient have a Living Will: No Does patient have a Durable POA for Healthcare: No Discharge Plan: Home - Code Status/Comfort Care Code Status: Full Code Critical Care: No Time Spent Managing PTS Care (In Minutes): 30 <Laurita Miguel - Last Filed: 06/21/24 17:20> Patient was seen and examined. Events of the last 24 hours have been noted. Spoke with with SHARI regarding patient's clinical picture after evaluating and examining the patient independently. I performed a substantial part of the MDM during this patient's care today. I personally made or approved the documented management plan and acknowledge its risk of complications. I agree with the findings and documentation provided in the SHARI's notes. <Ayaak Cason - Last Filed: 06/23/24 10:17>
--- NOTE | 2024-06-21 17:24 | P.PN ---
Date of Service: 06/21/24 Subjective Chief Complaint: foot infection Pending insurance authorization for IV antibiotics no reported pain, Quad cane ordered for DME at discharge Review of Systems 10-point ROS is otherwise unremarkable Physical Examination - Vital Signs reviewed - Physical Exam General: Alert, oriented x 3, no acute distress noted HEENT: Atraumatic, Normocephalic Neck: Supple, Respiratory: Clear to auscultation, Cardiovascular: +pulses, mild RLE edema Capillary refill: <2 Seconds Gastrointestinal: Normal bowel sounds, Musculoskeletal: No clubbing, Other generalized weakness, right lower extremity Integumentary: Other (Right lower extremity, dressed dry intact) Neurological: Normal speech, Normal strength at 5/5 x4 extr, Sensation intact Assessment And Plan - Current Problems (Diagnosis) (1) Osteomyelitis of foot, right, acute Current Visit: Yes Status: Acute (2) Ulcer of right foot due to type 2 diabetes mellitus Current Visit: Yes Status: Acute (3) History of amputation of toe Current Visit: Yes Status: Acute (4) Hypertension Current Visit: No Status: Chronic Qualifiers: (5) Type 2 diabetes mellitus Current Visit: No Status: Chronic Qualifiers: 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 Diabetic foot infection Diabetes Neuropathy Hypertension Plan: Admit to medical floor Follow-up cultures Start IV vancomycin and Rocephin, PICC line placed for IV ABX after discharge A tetanus shot was requested Fingerstick blood sugars sliding scale insulin Await home medication reconciliation MRI foot OM RLE- Moderate osteomyelitis-The muscles and tendons appear intact. Moderate soft tissue swelling seen mid and forefoot. Focal thickening measuring up to 7 mm of the proximal plantar fascia likely fibroma. Moderate edema is noted involving the calcaneus, favored to represent stress response / S/p ID Excisional debridment infected diabetic ulcer right foot, abscess drainage 4 x 4 x 1.5cm, (iodoform packing) PT eval, quad cane ordered for Pending insurance authorization for IV antibiotic - Advance Directives Does patient have a Living Will: No Does patient have a Durable POA for Healthcare: No Discharge Plan: Home - Code Status/Comfort Care Code Status: Full Code Critical Care: No Time Spent Managing PTS Care (In Minutes): 25 <Laurita Miguel - Last Filed: 06/21/24 17:22> Patient was seen and examined. Events of the last 24 hours have been noted. Spoke with with SHARI regarding patient's clinical picture after evaluating and examining the patient independently. I performed a substantial part of the MDM during this patient's care today. I personally made or approved the documented management plan and acknowledge its risk of complications. I agree with the findings and documentation provided in the SHARI's notes. <Ayaka Cason - Last Filed: 06/23/24 10:17>
[2024-06-21] MEDS: METOPROLOL TAR 25 MG TAB PO SCH (17:36)
[2024-06-21] MEDS: VANCOMYCIN 1.25 GM in NA CHLORIDE 0.9% 500 ML IVPB SCH (21:46)
[2024-06-22] MEDS: AMLODIPINE 5 MG TAB PO SCH (09:02)
--- NOTE | 2024-06-22 10:58 | EKG ---
Test Date: 2024-06-17 Test Time: 19:17:24 Laboratory Helper: MEASUREMENT RESULTS: Intervals: Rate: 88 [place]: 166 QRSD: 108 QT: 360 QTc: 435 [place]: P: 50 [place]: 166 QRS: -22 T: 72 INTERPRETIVE STATEMENTS: Sinus rhythm with frequent premature ventricular complexes Otherwise normal ECG Compared to ECG 02/04/2024 11:25:42 Prolonged QT interval no longer present Electronically Signed On 06-22-24 10:52:42 [employer]IEF by Abrahan Grant
--- NOTE | 2024-06-22 14:13 | P.DS ---
Admission Date: 06/17/24 Discharge Date: 06/22/24 Reason for Admission: foot infection Consultations: Dr. Murrieta Procedures: Wound debridement Brief History of Present Illness: 48-year-old male with history of diabetes presented to ER with complaints of stepping on a nail 2 days ago. Patient reports increased pain swelling. Patient does have history of partial foot amputation. X-ray done in the ER. cultures sent. tetanus shot requested Hospital Course: Wound positive for Strep agalectiae, sensitive to Rocephin. Mr. Stock will be discharged home with HH for Rocephin 2gm IVPB daily via PICC line x 6 weeks. He will have weekly CBC and CMP blood draws. He should follow up with Dr. Murrieta in wound care clinic as directed. <Maribell Chow - Last Filed: 06/22/24 16:07> Admission Date: 06/17/24 Discharge Date: 06/22/24 Hospital Course: We working on discharge planning. However, patient got out of the room and he left against medical advice. He went ahead and left is still only on the bed and he left the hospital for an extended period of time. Patient was discharged from the hospital as leaving against medical advice. <Ayaka Cason - Last Filed: 06/23/24 10:15> Disposition: AMA-LEFT AGAINST MEDICAL ADVIC Vital Signs/Physical Exam: Temp Pulse Resp BP Pulse Ox 98.4 F 83 20 129/62 97 06/22/24 12:00 06/22/24 12:00 06/22/24 12:00 06/22/24 12:00 06/22/24 12:00 General: Alert, In no apparent distress, Oriented x3 HEENT: Atraumatic, Normocephalic Neck: Supple Respiratory: Clear to auscultation bilaterally, Normal air movement Cardiovascular: No edema, Normal pulses, Regular rate/rhythm, Normal S1 S2 Capillary refill: <2 Seconds Gastrointestinal: Normal bowel sounds, Soft and benign Musculoskeletal: Other (right foot with prior amputation, wound to forefoot post puncture debrided per Dr. Murrieta in ED. + sensation) Integumentary: No rashes Neurological: Normal speech, Normal tone, Normal affect Lymphatics: No axilla or inguinal lymphadenopathy External genitalia: Deferred Rectal: Deferred Laboratory Data at Discharge: WBC 6.00 thou/uL (4.3-10.9) 06/21/24 05:35 Hgb 12.7 g/dL (13.6-17.9) L 06/21/24 05:35 Hct 37.4 % (39.6-49.0) L 06/21/24 05:35 Plt Count 345 thou/uL (152-406) 06/21/24 05:35 PT 11.8 SECONDS (9.4-12.5) 06/17/24 19:43 INR 1.06 06/17/24 19:43 APTT 28.6 SECONDS (24.3-36.9) 06/17/24 19:43 Sodium 137 mEq/L (136-145) 06/21/24 05:35 Potassium 3.8 mEq/L (3.5-5.1) 06/21/24 05:35 BUN 14 mg/dL (7-18) 06/21/24 05:35 Creatinine 0.99 mg/dL (0.70-1.30) 06/21/24 05:35 Glucose 86 mg/dL (74-106) 06/21/24 05:35 Phosphorus 3.4 mg/dL (2.5-4.9) 06/21/24 05:35 Total Bilirubin 0.9 mg/dL (0.2-1.0) 06/18/24 05:49 AST 16 U/L (15-37) 06/18/24 05:49 ALT 31 U/L (16-61) 06/18/24 05:49 Alkaline Phosphatase 95 U/L (45-117) 06/18/24 05:49 <Chow,Maribell Yves - Last Filed: 06/22/24 16:07> Vital Signs/Physical Exam: Temp Pulse Resp BP Pulse Ox 98.2 F 85 20 167/75 H 97 06/22/24 16:00 06/22/24 16:00 06/22/24 16:00 06/22/24 16:00 06/22/24 16:00 General: Alert, In no apparent distress, Oriented x3 Laboratory Data at Discharge: WBC 6.00 thou/uL (4.3-10.9) 06/21/24 05:35 Hgb 12.7 g/dL (13.6-17.9) L 06/21/24 05:35 Hct 37.4 % (39.6-49.0) L 06/21/24 05:35 Plt Count 345 thou/uL (152-406) 06/21/24 05:35 PT 11.8 SECONDS (9.4-12.5) 06/17/24 19:43 INR 1.06 06/17/24 19:43 APTT 28.6 SECONDS (24.3-36.9) 06/17/24 19:43 Sodium 137 mEq/L (136-145) 06/21/24 05:35 Potassium 3.8 mEq/L (3.5-5.1) 06/21/24 05:35 BUN 14 mg/dL (7-18) 06/21/24 05:35 Creatinine 0.99 mg/dL (0.70-1.30) 06/21/24 05:35 Glucose 86 mg/dL (74-106) 06/21/24 05:35 Phosphorus 3.4 mg/dL (2.5-4.9) 06/21/24 05:35 Total Bilirubin 0.9 mg/dL (0.2-1.0) 06/18/24 05:49 AST 16 U/L (15-37) 06/18/24 05:49 ALT 31 U/L (16-61) 06/18/24 05:49 Alkaline Phosphatase 95 U/L (45-117) 06/18/24 05:49 <Ayaka Cason - Last Filed: 06/23/24 10:15> Diet: ADA Activity: Ad beto <Maribell Chow - Last Filed: 06/22/24 16:07> Time spent managing pt's care (in minutes): 25 <Ayaka Cason - Last Filed: 06/23/24 10:15> Home Medications: Metformin HCl [Metformin ER Osmotic] 1,000 mg PO BID 02/06/17 Insulin Glargine,Hum.rec.anlog [Lantus] 35 units SQ BEDTIME 09/05/20 Atorvastatin Calcium 40 mg PO DAILY 10/24/21 Dapagliflozin Propanediol [Farxiga] 10 mg PO DAILY 10/24/21 Metoprolol Succinate 25 mg PO DAILY 02/04/24 Semaglutide [Ozempic] 2 mg SQ EVERY 7TH DAY 02/04/24 Physician Discharge Instructions: Patient is a 48-year-old male who came into the hospital with a diabetic foot infection. The wound was debrided a general surgeon. Patient was going to get arrangements for IV antibiotics and get osteomyelitis. As he arranges for being completed patient decided to leave against medical advice. Patient did not sign a form as he just got on the back elevators and left without informing the nursing staff. Of note patient did come back to the hospital although it was many hours later so he was discharged from hospital. Followup: Shakir Murrieta MD [ACTIVE - CAN ADMIT] - NONE,NONE [Primary Care Provider] -
--- NOTE | 2024-06-22 16:10 | P.PN ---
Date of Service: 06/22/24 Subjective Chief Complaint: foot infection Pending insurance authorization for IV antibiotics no reported pain, Quad cane ordered for DME at discharge no overnight events Review of Systems 10-point ROS is otherwise unremarkable Physical Examination - Vital Signs reviewed - Physical Exam General: Alert, oriented x 3, no acute distress noted HEENT: Atraumatic, Normocephalic Neck: Supple, Respiratory: Clear to auscultation, Cardiovascular: +pulses, mild RLE edema Capillary refill: <2 Seconds Gastrointestinal: Normal bowel sounds, Musculoskeletal: No clubbing, Other generalized weakness, right lower extremity Integumentary: Other (Right lower extremity, dressed dry intact) Neurological: Normal speech, Normal strength at 5/5 x4 extr, Sensation intact Assessment And Plan - Current Problems (Diagnosis) (1) Osteomyelitis of foot, right, acute Current Visit: Yes Status: Acute (2) Ulcer of right foot due to type 2 diabetes mellitus Current Visit: Yes Status: Acute (3) History of amputation of toe Current Visit: Yes Status: Acute (4) Hypertension Current Visit: No Status: Chronic Qualifiers: (5) Type 2 diabetes mellitus Current Visit: No Status: Chronic Qualifiers: Diabetes mellitus terminal gauger insulin use: without terminal gauger use Diabetes mellitus complication status: with skin complications - Plan 48-year-old male presents to the ER after stepping on a nail 2 days ago. Diabetic foot infection Diabetes Neuropathy Hypertension Plan: Admit to medical floor Follow-up cultures Start IV vancomycin and Rocephin, PICC line placed for IV ABX after discharge A tetanus shot was requested Fingerstick blood sugars sliding scale insulin Await home medication reconciliation MRI foot OM RLE- Moderate osteomyelitis-The muscles and tendons appear intact. Moderate soft tissue swelling seen mid and forefoot. Focal thickening measuring up to 7 mm of the proximal plantar fascia likely fibroma. Moderate edema is noted involving the calcaneus, favored to represent stress response / S/p ID Excisional debridment infected diabetic ulcer right foot, abscess drainage 4 x 4 x 1.5cm, (iodoform packing) PT eval, quad cane ordered for Pending insurance authorization for IV antibiotic (rocephin 2gm IV daily x 6 weeks) - Advance Directives Does patient have a Living Will: No Does patient have a Durable POA for Healthcare: No Discharge Plan: Home - Code Status/Comfort Care Code Status: Full Code Critical Care: No <Maribell Chow - Last Filed: 06/22/24 16:08> Patient was seen and examined. Events of the last 24 hours have been noted. Spoke with with SHARI regarding patient's clinical picture after evaluating and examining the patient independently. I performed a substantial part of the MDM during this patient's care today. I personally made or approved the documented management plan and acknowledge its risk of complications. I agree with the findings and documentation provided in the SHARI's notes. <Ayaka Cason - Last Filed: 06/23/24 10:17>
[2024-06-23] MEDS ORDERED: CEFTRIAXONE 2,000 MG in NA CHLORIDE 0.9% 100 ML IV SCH (09:00)
[2024-06-23 15:06] VITALS: BP 167/75
[2024-06-23 16:02] VITALS: O2SAT 97
--- NOTE | 2024-06-25 12:09 | EKG ---
Test Date: 2024-06-21 Test Time: 17:02:20 Pain Management Physician: LUCAS Mendes MEASUREMENT RESULTS: Intervals: Rate: 78 WI: 162 QRSD: 92 QT: 406 QTc: 462 [place]: P: 52 WI: 162 QRS: -2 T: 77 INTERPRETIVE STATEMENTS: Sinus rhythm with frequent premature ventricular complexes in a pattern of bigeminy Nonspecific ST abnormality Abnormal ECG Compared to ECG 06/17/2024 19:17:24 ST (T wave) deviation now present Electronically Signed On 06-25-24 12:07:49 [employer] OUT TENDER by Abrahan Grant
== END 2024-06-22 18:00 | disposition left against medical advice (07) | DRG 623 ==
LOC: ER 17:42 → ERHOLD 22:07 → 2ND 23:17
PROVIDERS: ADMIT Internal Medicine; ATTEND Hospitalist
PROC: 02HV33Z Insertion of Infusion Device into Superior Vena Cava, Percutaneous Approach (ICD-10-PCS; 2024-06-18)
PROC: 0JBQ0ZZ Excision of Right Foot Subcutaneous Tissue and Fascia, Open Approach (ICD-10-PCS; principal; 2024-06-19 15:45)
DX: E11.69 Type 2 diabetes mellitus with other specified complication (principal); L02.611 Cutaneous abscess of right foot; M86.171 Other acute osteomyelitis, right ankle and foot; L03.115 Cellulitis of right lower limb; E11.621 Type 2 diabetes mellitus with foot ulcer; L97.519 Non-pressure chronic ulcer of other part of right foot with unspecified severity; E11.40 Type 2 diabetes mellitus with diabetic neuropathy, unspecified; I10 Essential (primary) hypertension; B95.1 Streptococcus, group B, as the cause of diseases classified elsewhere; Z79.4 Long term (current) use of insulin; Z79.84 Long term (current) use of oral hypoglycemic drugs; Z79.899 Other long term (current) drug therapy; Z96.651 Presence of right artificial knee joint; Z89.411 Acquired absence of right great toe
CPT/HCPCS: 36415; 71045; 80053; 80069; 80202; 81001; 82947; 83605; 85025; 85610; 85730; 87040; 87070; 87075; 87077; 87186; 87205; 88304; 88311; 93005; 96365; 96366; 96372; 97161; 99285; J0696; J1100; J1644; J2003; J2250; J2405; J2704; J3010; J3590; J7030; J7040; J7050

== ENCOUNTER 2024-06-22 22:00 | Inpatient (IN) | payer OTHER ==
[2024-06-22] MEDS ORDERED: ACETAMINOPHEN 500 MG TAB PO PRN (23:28)
[2024-06-23] MEDS: CEFTRIAXONE 2,000 MG in NA CHLORIDE 0.9% 100 ML IV SCH (00:22)
[2024-06-23] MEDS: HEPARIN 5000 UNIT/ML 1 ML VIAL SQ SCH (00:22)
[2024-06-23] MEDS: METOPROLOL TAR 50 MG TAB PO SCH (05:48)
[2024-06-23] MEDS: INSULIN REGULAR (HUMAN) 100 UNIT/ML SQ SCH (08:36)
[2024-06-23] MEDS: Mupirocin NASAL 2 APPL/1 GM TUBE NAS SCH (09:48)
[2024-06-23] MEDS: AMLODIPINE 5 MG TAB PO SCH (09:48)
[2024-06-23] MEDS: ATORVASTATIN 40 MG TAB PO SCH (09:48)
--- NOTE | 2024-06-23 17:01 | P.SSS ---
Patient History Date of Service: 06/23/24 Reason for admission: HH with IV therapy setup History of Present Illness: Mr. Stock was admitted to the hospital on 06/17/2024, he underwent an I&D of a chronic diabetic ulcer after stepping on a nail. Dr. Murrieta took him to the OR for incision and drainage of the area on 06/19/2024. Wound cultures were sent for identification and sensitivity to bacteria. The wound was positive for Strep agalectiae which was sensitive to Rocephin. IV antibiotics set up through home health for patient to receive through his PICC line for a 6-week course. Unfortunately there was a delay as a home health needed follow-up provider for weekly labs and the patient's PCP was unable to provide that service. Apparently Mr. Stock was tired of waiting and went home thus his chart was closed out. He was called back to the hospital and Dr. Jay, with infectious disease, has kindly agreed to follow his labs. Home health, IV therapy, and follow-up physician obtained and patient is stable for discharge. Allergies No Known Drug Allergies Allergy (Verified 06/23/24 02:14) Unknown Home medications list reviewed: Yes Home Medications: Metformin HCl [Metformin ER Osmotic] 1,000 mg PO BID 02/06/17 Insulin Glargine,Hum.rec.anlog [Lantus] 35 units SQ BEDTIME 09/05/20 Atorvastatin Calcium 40 mg PO DAILY 10/24/21 Dapagliflozin Propanediol [Farxiga] 10 mg PO DAILY 10/24/21 Metoprolol Succinate 25 mg PO DAILY 02/04/24 Semaglutide [Ozempic] 2 mg SQ EVERY 7TH DAY 02/04/24 - Past Medical/Surgical History Has patient received pneumonia vaccine in the past: No Diabetic: Yes -: IDDM -: Neuropathy -: Hypertension -: Right great toe partial-amputation -: Right knee replacement -: Excisional subQ debridement necrotic wound left thigh -: L foot surgery Psychosocial/ Personal History: Patient is . - Family History Mother -: Hypertension, Diabetes Father -: Diabetes - Social History Smoking Status: Never smoker Alcohol use: No CD- Drugs: No Caffeine use: No Place of Residence: Home Review of Systems 10-point ROS is otherwise unremarkable General: As per HPI Eyes: Unremarkable ENT: Unremarkable Respiratory: Unremarkable Cardiovascular: Unremarkable Gastrointestinal: Unremarkable Genitourinary: Unremarkable Musculoskeletal: Unremarkable Integumentary: As per HPI Neurological: Unremarkable Lymphatics: Unremarkable Physical Examination - Vital Signs Temperature: 98.0 F Blood Pressure: 123/56 Pulse: 50 Respirations: 18 Pulse Ox (%): 100 - Physical Exam General: Alert, In no apparent distress, Oriented x3 HEENT: Atraumatic, Normocephalic Neck: 2+ carotid pulse no bruit, JVD not distended Respiratory: Clear to auscultation bilaterally Cardiovascular: Regular rate/rhythm, Normal S1 S2 Capillary refill: <2 Seconds Gastrointestinal: Soft and benign Musculoskeletal: No clubbing Integumentary: Diabetic ulcer, Other (wound care continues) Neurological: Normal gait, Normal tone, Normal affect Lymphatics: No axilla or inguinal lymphadenopathy External genitalia: Deferred Rectal: Deferred Treatment Summary: Mr. Stock was admitted to the hospital on 06/17/2024, he underwent an I&D of a chronic diabetic ulcer after stepping on a nail. Dr. Murrieta took him to the OR for incision and drainage of the area on 06/19/2024. Wound cultures were sent for identification and sensitivity to bacteria. The wound was positive for Strep agalectiae which was sensitive to Rocephin. IV antibiotics set up through home health for patient to receive through his PICC line for a 6-week course. Unfortunately there was a delay as a home health needed follow-up provider for weekly labs and the patient's PCP was unable to provide that service. Apparently Mr. Stock was tired of waiting and went home thus his chart was closed out. He was called back to the hospital and Dr. Jay, with infectious disease, has kindly agreed to follow his labs. Home health, IV therapy, and follow-up physician obtained and patient is stable for discharge. Mr. Stock should follow-up with the wound care center with Dr. Murrieta next week. - Disposition Disposition: DC HOME/HOME HEALTH CARE Condition: GOOD Diet: ADA Activity: Ad beto Critical Care: No
[2024-06-23 17:18] VITALS: BP 123/56; TEMP 98
[2024-06-23 17:20] VITALS: O2SAT 98; BMI 26.6
--- NOTE | 2024-06-23 17:32 | CON ---
History Of Present Illness: This is a 48-year-old male I was consulted for right foot diabetic foot ulcer. Patient is a Indonesian-speaking, seen by surgical team who debrided his foot wound under the fo urth metatarsal region which he developed after stepping on a nail. The patient denies any headache, nausea, vomiting, chest pain, abdominal pain, constipation, diarrhea. Currently, on Rocephin. Has significant past medical history of diabetes mellitus for more than 10 years. No cultures or labs ar e available at this time of examination. Past Medical History: Diabetes mellitus, diabetic neuropathy, history of amputation of right foot bi g toe. Social History: Nonsmoker. Occasional drinker. Family History: Noncontributory. Medications: Rocephin. See MARs for other medications. Allergies: NO KNOWN DRUG ALLERGIES. Review of Systems: A 10-point review was performed. Physical Examination: General: This is a 48-year-old male, lying in bed, not in any acute cardiopulmonary distress. Vital Signs: Temperature 98, pulse 50, respirations 18, blood pressure 102/48. HEENT: Unremarkable. Neck: Supple. Lungs: Basal crackles. Heart: S1, S2. Regular. Abdomen: Soft, nontender. Bowel sounds present. Extremities: Right foot wound noted. Laboratory Data: Not available. X-rays not available. Assessment And Plan: Right foot diabetic neuropathy, history of amputation of big toe, rule out oste omyelitis by getting CT or MRI of the right foot. Recommend to get wound cultures, CBC, CMP, A1c, an d prealbumin. Continue Rocephin and consider starting patient on vancomycin, pending culture results . We will follow the patient closely. Thank you for consult. NF/MODL Voice ID: [id number] Report ID: [id number]
[2024-06-23] MEDS ORDERED: INSULIN GLARGINE 100 UNIT/ML SQ SCH (21:00)
== END 2024-06-23 18:00 | disposition home health service (06) | DRG 638 ==
LOC: 2ND 22:00
PROVIDERS: ADMIT Hospitalist; ATTEND Internal Medicine
DX: E11.69 Type 2 diabetes mellitus with other specified complication (principal); M86.8X7 Other osteomyelitis, ankle and foot; E11.621 Type 2 diabetes mellitus with foot ulcer; E11.40 Type 2 diabetes mellitus with diabetic neuropathy, unspecified; I10 Essential (primary) hypertension; L97.519 Non-pressure chronic ulcer of other part of right foot with unspecified severity; Z79.4 Long term (current) use of insulin; Z79.84 Long term (current) use of oral hypoglycemic drugs; Z96.651 Presence of right artificial knee joint; Z89.411 Acquired absence of right great toe; Z79.899 Other long term (current) drug therapy
CPT/HCPCS: 82947; J0696; J1644

== ENCOUNTER 2024-07-18 06:35 | Emergency (ER) | payer OTHER ==
--- NOTE | 2024-07-18 07:11 | EDPHYS ---
Physician Documentation [facility] Name: Maik Stock Age: 48 yrs Sex: Male : 1975 Arrival Date: 07/18/2024 Time: 06:35 Bed 13 Private MD: ED Physician Pollo Duran HPI: 07/18 07:09 This 48 yrs old Male presents to ER via Unassigned with complaints of PIC LINE ec2 PROBLEM. 07:09 Patient arrives today d/t concern for evaluation of PICC line issues. Patient reports ec2 that he had his dressing completely saturated and wanted to change. Denies any other concerns, IV has been working appropriately otherwise.. Historical: - Allergies: 07:17 No Known Allergies; ss - PMHx: 07:17 Diabetes - NIDDM; Hypertensive disorder; ss - PSHx: 07:17 I\T\D of wound to right medial foot; toe amputation; ss - Immunization history:: Adult Immunizations unknown. - Infectious Disease History:: Denies. - Social history:: Smoking status: unknown. ROS: 07:10 Constitutional: as per hpi ec2 Exam: 07:10 Constitutional: GEN: NAD Head: atraumatic Eyes: EOMI Ears: External ears are ec2 normal. CV: regular rate LUNGS: no respiratory distress ABD: non-distended SKIN: Saturated PICC line site otherwise looks noninfectious. MSK: no evidence of trauma Vital Signs: 07:14 BP 162 / 69; Pulse 97; Resp 15; Temp 98; Pulse Ox 97% on R/A; Weight 86.18 kg; Height 5 ss ft. 10 in. ; Pain 0/10; 07:14 Body Mass Index 27.26 (86.18 kg, 177.8 cm) ss 07:14 Pain Scale: Adult ss MDM: 07:03 Medical Screening Exam initiated ec2 07:10 Data reviewed: vital signs, nurses notes. ED course: Patient arrives today for ec2 evaluation of his PICC line. Examination is unrevealing. Was able to change dressing and flush without issue. Will discharge home for return precautions given.. 07/18 07:08 [place] [facility] [place] flush and dressing change of the PICC line; Complete Time: ec2 07:52 Administered Medications: No medications were administered Disposition Summary: 07/18/24 07:11 Discharge Ordered Notes: Location: Home ec2 Condition: Stable ec2 Diagnosis - Encounter for PICC Line Evaluation ec2 Followup: ec2 - With: Private Physician - When: - Reason: Re-evaluation by your physician Discharge Instructions: - Discharge Summary Sheet ec2 - PICC Home Care Guide ec2 Forms: - Medication Reconciliation Form ec2 - Antibiotic Education ec2 - Prescription Opioid Use ec2 - Patient Portal Instructions ec2 - Leadership Thank You Letter ec2 Signatures: Ree Morrison RN RN Lorena Mike RN RN Pollo Duran MD MD ec2
--- NOTE | 2024-07-18 07:53 | ER ---
Nurse's Notes [facility] Name: Maik Stock Age: 48 yrs Sex: Male : 1975 Arrival Date: 07/18/2024 Time: 06:35 Bed 13 Private MD: Diagnosis: Encounter for PICC Line Evaluation Presentation: 07/18 07:14 Chief complaint: Patient states: Needs dressing changed to R upper arm PICC line. Pt ss reports it became loose when he took a shower. Coronavirus screen: Client denies travel out of the [place] in the last 14 days. Ebola Screen: Patient denies exposure to infectious person. Patient denies travel to an Ebola-affected area in the 21 days before illness onset. Initial Sepsis Screen: Does the patient meet any 2 criteria? No. Patient's initial sepsis screen is negative. Does the patient have a suspected source of infection? No. Patient's initial sepsis screen is negative. Risk Assessment: Do you want to hurt yourself or someone else? Patient reports no desire to harm self or others. Onset of symptoms was July 18, 2024. 07:14 Method Of Arrival: Ambulatory ss 07:14 Acuity: JACQUE 5 ss Historical: - Allergies: 07:17 No Known Allergies; ss - PMHx: 07:17 Diabetes - NIDDM; Hypertensive disorder; ss - PSHx: 07:17 I\T\D of wound to right medial foot; toe amputation; ss - Immunization history:: Adult Immunizations unknown. - Infectious Disease History:: Denies. - Social history:: Smoking status: unknown. Screenin:46 [facility] ED Fall Risk Assessment (Adult) History of falling in the last 3 months, ph including since admission No falls in past 3 months (0 pts) Confusion or Disorientation No (0 pts) Intoxicated or Sedated No (0 pts) Impaired Gait No (0 pts) Mobility Assist Device Used No (0 pt) Altered Elimination No (0 pt) Score/Fall Risk Level 0 - 2 = Low Risk Oriented to surroundings, Maintained a safe environment, Hourly rounding (assess needs \T\ fall precautionary measures) done. Abuse screen: Denies threats or abuse. Denies injuries from another. Nutritional screening: No deficits noted. Tuberculosis screening: No symptoms or risk factors identified. Assessment: 07:49 General: Appears in no apparent distress. comfortable, well groomed, Behavior is calm, ph cooperative, appropriate for age. General: PICC line to R upper arm, dressing loose and reinforced w/ extra tape. Pain: Denies pain. Neuro: Level of Consciousness is awake, alert, obeys commands, Oriented to person, place, time, situation. Cardiovascular: Capillary refill < 3 seconds in bilateral fingers Patient's skin is warm and dry. Respiratory: Airway is patent Respiratory effort is even, unlabored, Respiratory pattern is regular, symmetrical. Derm: Skin is pink, warm \T\ dry. Musculoskeletal: Range of motion: intact in all extremities. Vital Signs: 07:14 BP 162 / 69; Pulse 97; Resp 15; Temp 98; Pulse Ox 97% on R/A; Weight 86.18 kg; Height 5 ss ft. 10 in. ; Pain 0/10; 07:14 Body Mass Index 27.26 (86.18 kg, 177.8 cm) ss 07:14 Pain Scale: Adult ED Course: 06:35 Patient arrived in ED. [id number] 07:00 Pollo Duran MD is Attending Physician. ec2 07:17 Triage completed. ss 07:17 Arm band placed on right wrist. ss 07:30 Lorena Mike RN is Primary Nurse. ph 07:47 Patient has correct armband on for positive identification. Provided Education on: Use ph of call light. Pulse ox on. NIBP on. 07:50 No provider procedures requiring assistance completed. Patient did not have IV access ph during this emergency room visit. Dressings: Dressing to PICC line to R upper arm changed using sterile technique per hospital protocol, both ports flushed w/ 10cc NS, sterile caps place to both ports. Administered Medications: No medications were administered Medication: 07:47 VIS not applicable for this client. ph Outcome: 07:11 Discharge ordered by . ec2 07:52 Discharged to home ambulatory, ph 07:52 Condition: good 07:52 Discharge instructions given to patient, Instructed on discharge instructions, follow up and referral plans. Demonstrated understanding of instructions, follow-up care, 07:52 Patient left the ED. ph Signatures: Ree Morrison RN RN Lorena Mike RN RN Rachele Valdovinos [facility] Duran, Pollo, MD MD ec2
[2024-07-18 08:06] VITALS: BP 162/69; TEMP 98; O2SAT 97
== END 2024-07-18 07:52 | disposition home or self-care (01) ==
LOC: ER 06:35
DX: Z45.2 Encounter for adjustment and management of vascular access device (principal)
CPT/HCPCS: 99283

== ENCOUNTER 2024-07-29 20:46 | Inpatient (IN) | payer OTHER ==
--- OUTSIDE RECORDS SUMMARY | 2024-07-29 20:53 | XMS REPORT | Continuity of Care Document ---
Author Name Unknown Address [address] [facility] [address] [place] [address] [facility] Address [address] [facility] [place] [address] Care Team Providers Care Circuit Board Inspector Name Role Phone Deanna Quintanilla MD Primary Care Physician Doctor Unassigned, [place] Attending Clinician U navailable Doctor Unassigned, [place] Attending Clinician U navailable Nurse, Adc Pob Immunization Attending Clinician Unavailable Deon Pelaez DO Attending Clinician [phone] DEON PELAEZ Attending Clinician Unavail able [facility] Attending Clinician Unavailable Moody Hernandez MD Attending Clinician [phone] MOODY HERNANDEZ Attending Clinician UnavailIRINEO Johnson Attending Clinician Unavailable MARY BURRELL A Attending Clinician Unava ilable Mary Burrell DPM A Attending Clinician + Sara Dougherty RN Attending Clinician Unavailable MARYANN RUSS Attending Clinician Unavailab Lavinia Olmedo Attending Clinician [phone] Inga Paez MD Attending Clinician + [phone] Kim Chaudhari MD Attending Clinician [phone] Maryann Russ MD Attending Clinician [phone] INGA PAEZ Admitting Clinician UnavailInga Singh MD Admitting Clinician Payers Payer Name Policy Type Policy Number Effective Date Expirati on Date Source Problems Condition Name Condition Details Condition Category Status Onset Date Resolution Date Last Treatment Date Treating Clinician Comments Source Obesity (BMI 30-39.9) Obesity (BMI 30-39.9) Disease Active 2 00:00: 00 [facility] Cellulitis and abscess of foot Cellulitis and abscess of foot Disease Active 07-14 00:00: 00 [facility] Cellulitis of left foot Cellulitis of left foot Disease Active 07-14 00:00: 00 Overview: Formattin g of this note might be different from the original. Added automatic ally from request for surgery [id number] [facility] Puncture wound of left foot, initial encounter Puncture wound of left foot, initial encounter Disease Active 07-14 00:00: 00 Overview: Formattin g of this note might be different from the original. Added automatic ally from request for surgery [id number] [facility] Left foot infection Left foot infection Disease Active 07-14 00:00: 00 Overview: Formattin g of this note might be different from the original. Added automatic ally from request for surgery [id number] [facility] Diabetes Diabetes Disease Active 06-22 00:00: 00 [facility] Type 2 diabetes mellitus with microalbum inuria, with long-term current use of insulin Type 2 diabetes mellitus with microalbum inuria, with long-term current use of insulin Disease Active 06-13 00:00: 00 [facility] Type 2 diabetes mellitus with microalbum inuria, with long-term current use of insulin Type 2 diabetes mellitus with microalbum inuria, with long-term current use of insulin Disease Active 06-13 00:00: 00 [facility] Dyslipidem ia Dyslipidem ia Disease Active 06-13 00:00: 00 [facility] Albuminuri a Albuminuri a Disease Active 06-13 00:00: 00 [facility] Metabolic syndrome X Metabolic syndrome X Disease Active 1 00:00: 00 [facility] Tibia fracture Tibia fracture Disease Active 2015-06 00:00: 00 [facility] Tibia/fibu la fracture, left, closed, initial encounter Tibia/fibu la fracture, left, closed, initial encounter Disease Active 2015-06 00:00: 00 [facility] Toe ulcer, right Toe ulcer, right Disease Active 08-18 00:00: 00 [facility] DM2 (diabetes mellitus, type 2) DM2 (diabetes mellitus, type 2) Disease Active 08-18 00:00: 00 [facility] Diabetic foot ulcer Diabetic foot ulcer Disease Active 08-18 00:00: 00 [facility] Toe ulcer, right Toe ulcer, right Disease Active 08-18 00:00: 00 [facility] Allergies, Adverse Reactions, Alerts Allergy Name Allergy Type Status Severity Reaction(s) Onset Date Inactive Date Treating Clinician Comments Source NO KNOWN ALLERGIE S Drug Class Active [facility] Social History Social Habit Start Date Stop Date Quantity Comments Source [facility] to SARS-CoV-2 (event) 2021-03-26 00:00:00 2021-04-25 13:19:00 Not sure [facility] Alcohol intake 2020-10-19 00:00:00 2020-10-19 00:00:00 0 /d [facility] History of Social function 2020-08-10 00:00:00 2020-08-10 00:00:00 [facility] Alcoholic beverage intake 2016-05-02 00:00:00 2016-05-02 00:00:00 0 /d [facility] Tobacco use and exposure 2016-03-20 00:00:00 2016-03-20 00:00:00 Smokeless tobacco non-user [facility] Sex assigned at 1975 00:00:00 1975 00:00:00 [facility] Smoking Status Start Date Stop Date Source Never smoked tobacco [facility] Medications Ordered Medication Name Filled Medication Name Start Date Stop Date Current Medication? Ordering Clinician Indication Dosage Frequency Signature (SIG) Comments Components Source clotrimazol e (ATHLETE'S FOOT, CLOTRIMAZOL E,) 1 % topical cream 10-19 00:00: 00 Yes [id number] Apply to area(s) at bedtime. [facility] minocycline 100 mg capsule 10-19 00:00: 00 Yes [id number] 100mg Take 1 capsule by mouth every 12 (twelve) hours. [facility] terbinafine HCL 250 mg tablet 08-31 00:00: 00 11-30 04:59 :00 No [id number] 250mg Take 1 tablet by mouth daily for 90 days. [facility] minocycline 100 mg capsule 08-31 00:00: 00 10-19 00:00 :00 No [id number] 100mg Take 1 capsule by mouth every 12 (twelve) hours. [facility] rifAMPin 300 mg capsule 08-10 00:00: 00 08-31 00:00 :00 No [id number] 300mg Take 1 capsule by mouth every 12 (twelve) hours. [facility] minocycline 100 mg capsule 08-10 00:00: 00 08-31 00:00 :00 No [id number] 100mg Take 1 capsule by mouth every 12 (twelve) hours. [facility] sodium hypochlorit e (DAKIN'S MODIFIED 0.25%) solution 08-05 00:00: 00 Yes [id number] Apply to area(s) every Saturday, and Saturday in the evening. [facility] sodium hypochlorit e (DAKIN'S MODIFIED 0.25%) solution 08-05 00:00: 00 Yes [id number] Apply to area(s) every Saturday, and Saturday in the evening. [facility] sodium hypochlorit e (DAKIN'S MODIFIED 0.25%) solution 08-05 00:00: 00 Yes [id number] Apply to area(s) every Saturday, and Saturday in the evening. [facility] sulfamethox azole-trime thoprim (BACTRIM) 400-80 mg per tablet 08-04 22:25: 53 08-04 00:00 :00 No 1{tbl} Take 1 tablet by mouth 2 (two) times daily. [facility] ciprofloxac in HCl (CIPRO) 500 mg tablet 08-04 22:25: 53 08-04 00:00 :00 No 500mg Take 500 mg by mouth every 12 (twelve) hours. [facility] rifAMPin (RIFADIN) capsule 300 mg 08-04 15:00: 00 Yes 300mg 300 mg, Oral, DAILY, First dose on Rebecca 08/04/20 at 0900, Until Discontinu ed, NORBERTO
Re ason for Anti-Infec tive: Documented Infection< br>Documen rony Infection Site: Skin / Soft Tissue
Duration of Therapy: 7 days [facility] minocycline (MINOCIN) capsule 100 mg 08-04 12:00: 00 Yes 100mg 100 mg, Oral, Q12HA2, First dose on Rebecca 08/04/20 at 0600, Until Discontinu ed, NORBERTO
Re ason for Anti-Infec tive: Documented Infection< br>Documen rony Infection Site: Skin / Soft Tissue
Duration of Therapy: 7 days [facility] Polyethylen e Glycol 3350 17 gram powder 08-04 00:00: 00 Yes [id number] 17g Take 1 Packet by mouth daily. [facility] insulin glargine 100 unit/mL injection 08-04 00:00: 00 Yes [id number] 30U inject 30 Units under the skin daily. [facility] minocycline 100 mg capsule 08-04 00:00: 00 08-10 00:00 :00 No [id number] 100mg Take 1 capsule by mouth every 12 (twelve) hours. [facility] rifAMPin 300 mg capsule 08-04 00:00: 00 08-10 00:00 :00 No [id number] 300mg Take 1 capsule by mouth every 12 (twelve) hours. [facility] lactated ringers IV infusion 1,000 mL 08-02 19:45: 00 08-03 12:31 :04 No 1000mL at 75 mL/hr, 1,000 mL, IV Infusion, CONTINUOUS , Starting Tu08/02/20 at 1345, Until Sat08/03/20 at 0631, Routine, PACU [facility] vancomycin 1250 mg in NS 250 mL RTU IV Piggyback 1,250 mg 07-30 18:00: 00 08-04 14:10 :51 No 1250mg 1,250 mg, IV Piggyback, Q24H ABX, First dose on 07/30/20 at 1200, Until Discontinu ed
Reas on for Anti-Infec tive: Documented Infection< br>Documen rony Infection Site: Skin / Soft Tissue
Duration of Therapy: [address] [facility] rifAMPin (RIFADIN) capsule 300 mg 07-30 14:00: 00 07-30 16:48 :39 No 300mg 300 mg, Oral, Q12H, First dose on 07/30/20 at 0800, Until Discontinu ed, NORBERTO
Re ason for Anti-Infec tive: Documented Infection< br>Documen rony Infection Site: Skin / Soft Tissue
Duration of Therapy: 14 days [facility] minocycline (MINOCIN) capsule 100 mg 07-30 14:00: 00 07-30 16:48 :39 No 100mg 100 mg, Oral, Q12H, First dose on 07/30/20 at 0800, Until Discontinu ed, NORBERTO
Re ason for Anti-Infec tive: Documented Infection< br>Documen rony Infection Site: Skin / Soft Tissue
Duration of Therapy: 14 days [facility] ceFEPIme (MAXIPIME) 2,000 mg in NaCl 0.9% (NS) 100 mL MINI-BAG 07-30 04:15: 00 07-30 07:41 :00 No 2000mg 2,000 mg, IV Piggyback, Q8H ABX, 1 dose, First dose (after last modificati on) on Sat07/29/20 at 2215, 100 mL
Reas on for Anti-Infec tive: Documented Infection< br>Documen rony Infection Site: Bone
Du ration of Therapy: Other (see Comments) [facility] gadoteridol (PROHANCE-2 0 mL) injection 17 mL 07-30 03:15: 00 07-30 03:01 :00 No .2mL/kg 17 mL (0.2 mL/kg ?85 kg), Intravenou s, ONCE, 1 dose, Sat07/29/20 at 2115, Routine [facility] metroNIDAZO LE in NaCl (iso-os) (FLAGYL I.V.) RTU IV infusion 500 mg 07-30 00:30: 00 07-30 05:29 :00 No 500mg 500 mg, IV Piggyback, Q8H ABX, 1 dose, First dose (after last modificati on) on Sat07/29/20 at 1830, 100 mL
Reas on for Anti-Infec tive: Documented Infection< br>Documen rony Infection Site: Blood
D uration of Therapy: Other (see Comments) [facility] vancomycin (VANCOCIN) 1,250 mg in NaCl 0.9% (NS) 250 mL piggyback 07-25 14:45: 00 07-29 22:49 :20 No 1250mg 1,250 mg, IV Piggyback, Q24H ABX, First dose on Sat07/25/20 at 0845, Until Discontinu ed, 250 mL
Reas on for Anti-Infec tive: Empiric Therapy for Suspected Infection< br>Empiric Therapy Site: Skin / Soft tissue
Duration of therapy: 72 hours [facility] Sliding Scale Insulin - Lispro (HumaLOG) + Fsbg Testing 07-24 14:00: 00 Yes Subcutaneo us, TID MEALS+HS, First dose (after last modificati on) on [place] 07/24/20 at 0800, Until Discontinu ed, Routine [facility] vancomycin 1250 mg in NS 250 mL RTU IV Piggyback 1,250 mg 07-23 14:38: 00 07-25 07:05 :38 No 1250mg 1,250 mg, IV Piggyback, Q24H ABX, First dose (after last modificati on) on [facility] 07/23/20 at 0845, Until Discontinu ed
Reas on for Anti-Infec tive: Documented Infection< br>Documen rony Infection Site: Skin / Soft Tissue
Duration of Therapy: [address] [facility] KCL (KLOR-CON M20) tablet 20 mEq 07-22 13:45: 00 07-22 14:38 :00 No 20meq 20 mEq, Oral, ONCE, 1 dose, Sat07/22/20 at 0745, Routine [facility] lactated ringers IV infusion 1,000 mL 07-22 13:45: 00 07-22 17:04 :00 No 1000mL at 999 mL/hr, 1,000 mL, IV Infusion, ONCE, 1 dose, Sat07/22/20 at 0745, Routine [facility] vancomycin 1250 mg in NS 250 mL RTU IV Piggyback 1,250 mg 07-22 00:30: 00 07-22 21:06 :47 No 1250mg 1,250 mg, IV Piggyback, Q12H ABX, First dose on [place] 07/21/20 at 1830, Until Discontinu ed
Reas on for Anti-Infec tive: Documented Infection< br>Documen rony Infection Site: Skin / Soft Tissue
Duration of Therapy: [address] [facility] ceFEPIme (MAXIPIME) 2,000 mg in NaCl 0.9% (NS) 100 mL MINI-BAG 07-21 04:05: 00 07-29 22:49 :20 No 2000mg 2,000 mg, IV Piggyback, Q8H ABX, First dose (after last modificati on) on Sat07/20/20 at 2215, Until Discontinu ed, 100 mL
Reas on for Anti-Infec tive: Documented Infection< br>Documen rony Infection Site: Bone
Du ration of Therapy: Other (see Comments) [facility] metroNIDAZO LE in NaCl (iso-os) (FLAGYL I.V.) RTU IV infusion 500 mg 07-21 00:30: 00 07-29 22:49 :20 No 500mg 500 mg, IV Piggyback, Q8H ABX, First dose on Sat07/20/20 at 1830, Until Discontinu ed, 100 mL
Reas on for Anti-Infec tive: Documented Infection< br>Documen rony Infection Site: Blood
D uration of Therapy: Other (see Comments) [facility] clindamycin in 5 % dextrose (CLEOCIN) 900 mg/50 mL IV piggyback RTU 900 mg 07-21 00:30: 00 07-22 23:33 :56 No 900mg 900 mg, IV Piggyback, Q8H ABX, First dose on Sat07/20/20 at 1830, Until Discontinu ed, 50 mL
Reas on for Anti-Infec tive: Documented Infection< br>Documen rony Infection Site: Skin / Soft Tissue
Duration of Therapy: Other (see Comments)< br>Restric rony use approved by: GERALDO BERRIOS, ADULT ID [facility] vancomycin (VANCOCIN) 1,500 mg in NaCl 0.9% (NS) 500 mL piggyback 07-21 00:30: 00 07-21 10:33 :27 No 15mg/kg 1,500 mg (rounded from 1,497 mg = 15 mg/kg ?99.8 kg), IV Piggyback, Q8H ABX, First dose (after last modificati on) on Sat07/20/20 at 1830, Until Discontinu ed, 500 mL
Reas on for Anti-Infec tive: Empiric Therapy for Suspected Infection< br>Empiric Therapy Site: Skin / Soft tissue
Duration of therapy: 7 days [facility] ceFEPIme (MAXIPIME) 2,000 mg in NaCl 0.9% (NS) 100 mL MINI-BAG 07-20 17:15: 00 07-20 23:43 :19 No 2000mg 2,000 mg, IV Piggyback, Q12H ABX, First dose on Sat07/20/20 at 1115, Until Discontinu ed, 100 mL
Reas on for Anti-Infec tive: Documented Infection< br>Documen rony Infection Site: Bone
Du ration of Therapy: Other (see Comments) [facility] HYDROcodone -acetaminop hen (NORCO 5) 5-325 mg tablet 1 tablet 07-19 18:15: 00 07-19 18:12 :00 No 1{tbl} 1 tablet, Oral, ONCE, 1 dose, Sat07/19/20 at 1215, Routine, PACU [facility] FENTanyl PF (SUBLIMAZE (PF)) injection 25 mcg 07-19 18:08: 04 07-19 18:58 :50 No 25ug 25 mcg, Slow IV Push, Q5MIN PRN, 4 doses, Starting Sat07/19/20 at 1208, Until Sat07/19/20 at 1258, Routine, Pain (scale 4-6), PACU [facility] sodium hypochlorit e 0.025% (Dakin's) solution 07-18 15:00: 00 07-18 12:33 :01 No Topical, DAILY, First dose on Sat07/18/20 at 0900, Until Discontinu ed, Routine [facility] acetaminoph en-codeine (TYLENOL #3) 300-30 mg tablet 1 tablet 07-18 12:52: 54 Yes 1{tbl} 1 tablet, Oral, Q6HPRN, Starting Sat07/18/20 at 0652, Until Discontinu ed, Routine, Pain (scale 7-10) [facility] acetaminoph en (TYLENOL) tablet 650 mg 07-17 11:43: 24 Yes 650mg 650 mg, Oral, Q6HPRN, Starting 07/17/20 at 0543, Until Discontinu ed, Routine, Pain (scale 1-3), Temp > 38.5 C [facility] vancomycin 1500 mg in NS 500 mL IV Piggyback RTU 1,500 mg 07-17 05:28: 00 07-20 18:16 :52 No 15mg/kg 1,500 mg (rounded from 1,497 mg = 15 mg/kg ?99.8 kg), IV Piggyback, Q8H ABX, First dose (after last modificati on) on 07/16/20 at 2330, Until Discontinu ed
Reas on for Anti-Infec tive: Empiric Therapy for Suspected Infection< br>Empiric Therapy Site: Skin / Soft tissue
Duration of therapy: 7 days [facility] pantoprazol e (PROTONIX) EC tablet 40 mg 07-16 15:15: 00 07-23 14:44 :18 No 40mg 40 mg, Oral, DAILY, First dose on 07/16/20 at 0915, Until Discontinu ed, Routine [facility] vancomycin 1500 mg in NS 500 mL IV Piggyback RTU 1,500 mg 07-15 18:00: 00 07-16 21:44 :42 No 15mg/kg 1,500 mg (rounded from 1,497 mg = 15 mg/kg ?99.8 kg), IV Piggyback, Q12H ABX, First dose (after last modificati on) on Sat07/15/20 at 1200, Until Discontinu ed
Reas on for Anti-Infec tive: Empiric Therapy for Suspected Infection< br>Empiric Therapy Site: Skin / Soft tissue
Duration of therapy: 7 days [facility] Polyethylen e Glycol 3350 (MIRALAX) powder 17 g 07-15 15:00: 00 Yes 17g 17 g, Oral, DAILY, First dose on Sat07/15/20 at 0900, Until Discontinu ed, Routine [facility] Sliding Scale Insulin - Lispro (HumaLOG) + Fsbg Testing 07-15 06:00: 00 07-24 12:45 :00 No Subcutaneo us, Q4H, First dose (after last modificati on) on Sat07/15/20 at 0000, Until Discontinu ed, Routine [facility] diph,pertus (acel),teta nus (ADACEL) injection 0.5 mL 07-15 05:00: 00 07-15 06:58 :00 No .5mL 0.5 mL, Intramuscu lar, ONCE, 1 dose, [facility] 07/14/20 at 2300, Routine [facility] clindamycin in 5 % dextrose (CLEOCIN) 600 mg/50 mL IV piggyback RTU 600 mg 07-15 04:00: 00 07-15 18:30 :18 No 600mg 600 mg, IV Piggyback, Q8H ABX, First dose on Sat07/14/20 at 2200, Until Discontinu ed, 50 mL
Reas on for Anti-Infec tive: Empiric Therapy for Suspected Infection< br>Empiric Therapy Site: Skin / Soft tissue
Duration of therapy: 7 days
Re stricted use approved by: Necrotizin g fasciitis, necrotizin g skin and soft tissue infection, and Janel s gangrene to block toxin production [facility] insulin glargine (LANTUS U-100) injection 30 Units 07-15 03:00: 00 Yes .3U/kg/ d 30 Units (rounded from 29.94 Units = 0.3 Units/kg/d ay ?99.8 kg), Subcutaneo us, QHS, First dose on Sat07/14/20 at 2100, Until Discontinu ed, Routine [facility] iohexol (OMNIPAQUE 350 BULK-100 mL) injection 120 mL 07-15 00:15: 00 07-15 00:12 :00 No 120mL 120 mL, Intravenou s, ONCE, 1 dose, [facility] 07/14/20 at 1815, Routine [facility] glucagon (GLUCAGEN DIAGNOSTIC KIT) injection 1 mg 07-14 23:53: 28 Yes 1mg 1 mg, Intramuscu lar, PRN, Starting [place] 07/14/20 at 1753, Until Discontinu ed, NORBERTO, Blood Glucose < or = 70 mg/dL and patient is unable to swallow or has mental changes. [facility] dextrose 50 % in water (D50W) injection 25 mL 07-14 23:53: 28 Yes 25mL 25 mL, Slow IV Push, PRN, Starting [place] 07/14/20 at 1753, Until Discontinu ed, NORBERTO, Blood Glucose < or = 70 mg/dL and patient is unable to swallow or has mental status changes. [facility] ceFEPIme (MAXIPIME) 2,000 mg in NaCl 0.9% (NS) 100 mL MINI-BAG 07-14 23:00: 00 07-18 16:00 :14 No 2000mg 2,000 mg, IV Piggyback, Q12H ABX, First dose on Sat07/14/20 at 1700, Until Discontinu ed, 100 mL
Reas on for Anti-Infec tive: Empiric Therapy for Suspected Infection< br>Empiric Therapy Site: Skin / Soft tissue
Duration of therapy: 7 days [facility] Sliding Scale Insulin - Lispro (HumaLOG) + Fsbg Testing 07-14 23:00: 00 07-15 04:55 :42 No Subcutaneo us, TID MEALS+HS, First dose on [place] 07/14/20 at 1700, Until Discontinu ed, Routine [facility] acetaminoph en-codeine (TYLENOL #3) 300-30 mg tablet 07-14 21:59: 28 07-14 00:00 :00 No 1{tbl} Take 1 tablet by mouth every 4 (four) hours as needed. [facility] ondansetron (ZOFRAN (PF)) injection 4 mg 07-14 21:57: 14 Yes 4mg 4 mg, Slow IV Push, Q6HPRN, Starting Rebecca 2/4/21 at 1557, Until Discontinu ed, Routine, Nausea and Vomiting (N/V) [facility] sennosides (SENOKOT) tablet 8.6 mg 07-14 21:57: 07 Yes 8.6mg 8.6 mg, Oral, QDAILYPRN, Starting [place] 07/14/20 at 1557, Until Discontinu ed, Routine, Constipati on [facility] traMADoL (ULTRAM) tablet 50 mg 07-14 21:56: 47 07-16 21:55 :47 No 50mg 50 mg, Oral, Q8HPRN, Starting [place] 07/14/20 at 1556, Until 07/16/20 at 1555, Routine, Pain (scale 4-6) [facility] acetaminoph en (TYLENOL) tablet 650 mg 07-14 21:56: 43 07-17 11:43 :42 No 650mg 650 mg, Oral, Q6HPRN, Starting Rebecca 07/14/20 at 1556, Until 07/17/20 at 0543, Routine, Pain (scale 1-3) [facility] acetaminoph en (TYLENOL) tablet 1,000 mg 07-14 19:15: 00 07-14 18:22 :00 No 1000mg 1,000 mg, Oral, ONCE, 1 dose, [place] 07/14/20 at 1315, NORBERTO [facility] vancomycin (VANCOCIN) 1,000 mg in NaCl 0.9% (NS) 250 mL VIAL-MATE IV piggyback 07-14 18:00: 00 07-14 19:09 :00 No 1000mg 1,000 mg, IV Piggyback, ONCE, 1 dose, [place] 07/14/20 at 1200, 250 mL
Reas on for Anti-Infec tive: Documented Infection< br>Documen rony Infection Site: Skin / Soft Tissue
Duration of Therapy: 7 days [facility] diclofenac 75 mg EC tablet 11-16 00:00: 00 07-14 00:00 :00 No 75mg Take 1 tablet by mouth 2 (two) times daily with meals. [facility] traMADOL 50 mg tablet 07-05 00:00: 00 07-14 00:00 :00 No 50mg Take 1 tablet by mouth every 6 (six) hours as needed for Pain (scale 4-6). [facility] cephALEXin (KEFLEX) 500 mg capsule 07-05 00:00: 00 07-14 00:00 :00 No 500mg Take 1 capsule by mouth 4 (four) times daily. [facility] acetaminoph en-codeine (TYLENOL-CO DEINE #3) 300-30 mg tablet 07-02 00:00: 00 07-14 00:00 :00 No 1{tbl} Take 1 tablet by mouth every 6 (six) hours as needed for Pain (scale 4-6). [facility] rivaroxaban (XARELTO) 20 mg tablet 06-23 00:00: 00 08-04 00:00 :00 No 20mg Take 1 tablet by mouth daily. [facility] blood sugar diagnostic (ACCU-CHEK INNA) strip 06-13 00:00: 00 Yes Use as directed, TID, DX:E11.9 [facility] Lancets (ACCU-CHEK FASTCLIX) [facility] 06-13 00:00: 00 Yes Use as directed, TID, DX:E11.9 [facility] gabapentin 100 mg capsule 06-13 00:00: 00 Yes [id number] 100mg Take 1 capsule by mouth at bedtime. [facility] metFORMIN 1,000 mg tablet 06-13 00:00: 00 Yes [id number] 1000mg Take 1 tablet by mouth 2 (two) times daily with meals. [facility] blood sugar diagnostic (ACCU-CHEK INNA) strip 06-13 00:00: 00 Yes Use as directed, TID, DX:E11.9 [facility] Lancets (ACCU-CHEK FASTCLIX) [facility] 06-13 00:00: 00 Yes Use as directed, TID, DX:E11.9 [facility] Lancets (ACCU-CHEK FASTCLIX) Misc 06-13 00:00: 00 Yes Use as directed, TID, DX:E11.9 [facility] atorvastati n (LIPITOR) 40 mg tablet 06-13 00:00: 00 07-14 00:00 :00 No [id number] 40mg Take 1 tablet by mouth at bedtime. [facility] lisinopril 10 mg tablet 06-13 00:00: 00 07-14 00:00 :00 No [id number] 10mg Take 1 tablet by mouth daily. [facility] neomycin-po lymyxin-dex amethasone (MAXITROL) 3.5mg/mL-10 ,000 unit/mL-0.1 % ophthalmic suspension drops 2015-06 00:00: 00 07-14 00:00 :00 No [facility] insulin degludec (TRESIBA FLEXTOUCH U-100) 100 unit/mL (3 mL) InPn 2015-06 00:00: 00 08-04 00:00 :00 No [id number] 15U inject 15 Units under the skin every morning. [facility] clindamycin (CLEOCIN) 300 mg capsule 2015-06 00:00: 00 07-14 00:00 :00 No 300mg Take 1 capsule by mouth 3 (three) times daily. For chronic bone infection of right toe/foot [facility] Immunizations Ordered Immunization Name Filled Immunization Name Date Status Comments Source SARS-COV-2 COVID-19 MODERNA BOOSTER VACCINE 2021-04-25 00:00:00 Completed [facility] HEPLISAV HEP B, ADULT 2 DOSE, IM 2020-10-19 00:00:00 Completed [facility] HEPLISAV HEP B, ADULT 2 DOSE, IM 2020-10-19 00:00:00 [facility] [facility] SARS-COV-2 COVID-19 MODERNA VACCINE 2020-10-11 00:00:00 Completed [facility] SARS-COV-2 COVID-19 MODERNA VACCINE 2020-10-11 00:00:00 Completed [facility] SARS-COV-2 COVID-19 MODERNA VACCINE 2020-10-11 00:00:00 Completed [facility] SARS-COV-2 COVID-19 MODERNA VACCINE 2020-09-13 00:00:00 Completed [facility] SARS-COV-2 COVID-19 MODERNA VACCINE 2020-09-13 00:00:00 Completed [facility] SARS-COV-2 COVID-19 MODERNA VACCINE 2020-09-13 00:00:00 Completed [facility] Pneumococcal Polysaccharide, PPSV23 (PNEUMOVAX) 2020-08-31 00:00:00 Completed [facility] Pneumococcal Polysaccharide, PPSV23 (PNEUMOVAX) 2020-08-31 00:00:00 Completed [facility] Pneumococcal Polysaccharide, PPSV23 (PNEUMOVAX) 2020-08-31 00:00:00 Completed [facility] Pneumococcal Polysaccharide, PPSV23 (PNEUMOVAX) 2020-08-31 00:00:00 Completed [facility] Pneumococcal Polysaccharide, PPSV23 (PNEUMOVAX) 2020-08-31 00:00:00 Completed [facility] Influenza Virus Vaccine Quad .5 mL IM 6+ MO 2020-08-10 00:00:00 Completed [facility] HEPLISAV HEP B, ADULT 2 DOSE, IM 2020-08-10 00:00:00 Completed [facility] Influenza Virus Vaccine Quad .5 mL IM 6+ MO 2020-08-10 00:00:00 Completed [facility] HEPLISAV HEP B, ADULT 2 DOSE, IM 2020-08-10 00:00:00 Completed [facility] Influenza Virus Vaccine Quad .5 mL IM 6+ MO 2020-08-10 00:00:00 Completed [facility] HEPLISAV HEP B, ADULT 2 DOSE, IM 2020-08-10 00:00:00 Completed [facility] Influenza Virus Vaccine Quad .5 mL IM 6+ MO 2020-08-10 00:00:00 Completed [facility] HEPLISAV HEP B, ADULT 2 DOSE, IM 2020-08-10 00:00:00 Completed [facility] Influenza Virus Vaccine Quad .5 mL IM 6+ MO 2020-08-10 00:00:00 Completed [facility] HEPLISAV HEP B, ADULT 2 DOSE, IM 2020-08-10 00:00:00 Completed [facility] Influenza Virus Vaccine Quad .5 mL IM 6+ MO 2020-08-10 00:00:00 Completed [facility] HEPLISAV HEP B, ADULT 2 DOSE, IM 2020-08-10 00:00:00 Completed [facility] Influenza Virus Vaccine Quad .5 mL IM 6+ MO 2020-08-10 00:00:00 Completed [facility] HEPLISAV HEP B, ADULT 2 DOSE, IM 2020-08-10 00:00:00 Completed [facility] Influenza Virus Vaccine Quad .5 mL IM 6+ MO 2020-08-10 00:00:00 Completed [facility] HEPLISAV HEP B, ADULT 2 DOSE, IM 2020-08-10 00:00:00 Completed [facility] TDAP 2020-07-15 00:00:00 Completed [facility] TDAP 2020-07-15 00:00:00 Completed [facility] TDAP 2020-07-15 00:00:00 Completed [facility] TDAP 2020-07-15 00:00:00 Completed [facility] TDAP 2020-07-15 00:00:00 Completed [facility] TDAP 2020-07-15 00:00:00 Completed [facility] TDAP 2020-07-15 00:00:00 Completed [facility] TDAP 2020-07-15 00:00:00 Completed [facility] TDAP 2020-07-15 00:00:00 Completed [facility] TDAP 2020-07-15 00:00:00 Completed [facility] TDAP 2020-07-15 00:00:00 Completed [facility] TDAP 2020-07-15 00:00:00 Completed [facility] TDAP 2020-07-15 00:00:00 Completed [facility] Influenza Virus Vaccine Quad IM 3+ YRS 2016-03-22 00:00:00 Completed [facility] Influenza Virus Vaccine Quad IM 3+ YRS 2016-03-22 00:00:00 Completed [facility] Influenza Virus Vaccine Quad IM 3+ YRS 2016-03-22 00:00:00 Completed [facility] Influenza Virus Vaccine Quad IM 3+ YRS 2016-03-22 00:00:00 Completed [facility] Influenza Virus Vaccine Quad IM 3+ YRS 2016-03-22 00:00:00 Completed [facility] Influenza Virus Vaccine Quad IM 3+ YRS 2016-03-22 00:00:00 Completed [facility] Influenza Virus Vaccine Quad IM 3+ YRS 2016-03-22 00:00:00 Completed [facility] Influenza Virus Vaccine Quad IM 3+ YRS 2016-03-22 00:00:00 Completed [facility] Influenza Virus Vaccine Quad IM 3+ YRS 2016-03-22 00:00:00 Completed [facility] Influenza Virus Vaccine Quad IM 3+ YRS 2016-03-22 00:00:00 Completed [facility] Influenza Virus Vaccine Quad IM 3+ YRS 2016-03-22 00:00:00 Completed [facility] Influenza Virus Vaccine Quad IM 3+ YRS 2016-03-22 00:00:00 Completed [facility] Influenza Virus Vaccine Quad IM 3+ YRS 2016-03-22 00:00:00 Completed [facility] Influenza Virus Vaccine Quad IM 3+ YRS 2016-03-22 00:00:00 Completed [facility] Pneumococcal Polysaccharide, PPSV23 (PNEUMOVAX) 2014-08-27 00:00:00 Completed [facility] Influenza Virus Vaccine Quad IM 3+ YRS 2014-08-27 00:00:00 Completed [facility] Pneumococcal Polysaccharide, PPSV23 (PNEUMOVAX) 2014-08-27 00:00:00 Completed [facility] Influenza Virus Vaccine Quad IM 3+ YRS 2014-08-27 00:00:00 Completed Pneumococcal Polysaccharide, PPSV23 (PNEUMOVAX) 2014-08-27 00:00:00 Completed [facility] Influenza Virus Vaccine Quad IM 3+ YRS 2014-08-27 00:00:00 Completed [facility] Pneumococcal Polysaccharide, PPSV23 (PNEUMOVAX) 2014-08-27 00:00:00 Completed [facility] Influenza Virus Vaccine Quad IM 3+ YRS 2014-08-27 00:00:00 Completed [facility] Pneumococcal Polysaccharide, PPSV23 (PNEUMOVAX) 2014-08-27 00:00:00 Completed [facility] Influenza Virus Vaccine Quad IM 3+ YRS 2014-08-27 00:00:00 Completed [facility] Pneumococcal Polysaccharide, PPSV23 (PNEUMOVAX) 2014-08-27 00:00:00 Completed [facility] Influenza Virus Vaccine Quad IM 3+ YRS 2014-08-27 00:00:00 Completed [facility] Pneumococcal Polysaccharide, PPSV23 (PNEUMOVAX) 2014-08-27 00:00:00 Completed [facility] Influenza Virus Vaccine Quad IM 3+ YRS 2014-08-27 00:00:00 Completed [facility] Pneumococcal Polysaccharide, PPSV23 (PNEUMOVAX) 2014-08-27 00:00:00 Completed [facility] Influenza Virus Vaccine Quad IM 3+ YRS 2014-08-27 00:00:00 Completed [facility] Pneumococcal Polysaccharide, PPSV23 (PNEUMOVAX) 2014-08-27 00:00:00 Completed [facility] Influenza Virus Vaccine Quad IM 3+ YRS 2014-08-27 00:00:00 Completed [facility] Pneumococcal Polysaccharide, PPSV23 (PNEUMOVAX) 2014-08-27 00:00:00 Completed [facility] Influenza Virus Vaccine Quad IM 3+ YRS 2014-08-27 00:00:00 Completed [facility] Pneumococcal Polysaccharide, PPSV23 (PNEUMOVAX) 2014-08-27 00:00:00 Completed [facility] Influenza Virus Vaccine Quad IM 3+ YRS 2014-08-27 00:00:00 Completed [facility] Pneumococcal Polysaccharide, PPSV23 (PNEUMOVAX) 2014-08-27 00:00:00 Completed [facility] Influenza Virus Vaccine Quad IM 3+ YRS 2014-08-27 00:00:00 Completed [facility] Pneumococcal Polysaccharide, PPSV23 (PNEUMOVAX) 2014-08-27 00:00:00 Completed [facility] Influenza Virus Vaccine Quad IM 3+ YRS 2014-08-27 00:00:00 Completed [facility] Pneumococcal Polysaccharide, PPSV23 (PNEUMOVAX) 2014-08-27 00:00:00 Completed [facility] Influenza Virus Vaccine Quad IM 3+ YRS 2014-08-27 00:00:00 Completed [facility] Pneumococcal Polysaccharide, PPSV23 (PNEUMOVAX) Unknown Completed [facility] Influenza Virus Vaccine Quad IM 3+ YRS Unknown Completed [facility] TDAP Unknown Completed [facility] HEPLISAV HEP B, ADULT 2 DOSE, IM Unknown Completed [facility] SARS-COV-2 COVID-19 MODERNA 12+ YRS VACCINE Unknown Completed [facility] SARS-COV-2 COVID-19 MODERNA 0.25ML BOOSTER VACCINE Unknown Completed [facility] Vital Signs Vital Name Observation Time Observation Value Comments S ource Systolic blood pressure 2020-10-19 14:07:00 120 mm[Hg] [facility] Diastolic blood pressure 2020-10-19 14:07:00 75 mm[Hg] [facility] Heart rate 2020-10-19 14:07:00 88 /min [facility] Body temperature 2020-10-19 14:07:00 36.78 Carmela [facility] Respiratory rate 2020-10-19 14:07:00 18 /min [facility] Body height 2020-10-19 14:07:[address] [facility] Body weight 2020-10-19 14:07:[address] [facility] BMI 2020-10-19 14:07:00 31.09 kg/m2 [facility] Systolic blood pressure 2020-08-31 14:26:00 122 mm[Hg] [facility] Diastolic blood pressure 2020-08-31 14:26:00 79 mm[Hg] [facility] Heart rate 2020-08-31 14:26:00 99 /min [facility] Body temperature 2020-08-31 14:26:00 36.89 Carmela [facility] Body height 2020-08-31 14:26:[address] [facility] Body weight 2020-08-31 14:26:[address] [facility] BMI 2020-08-31 14:26:00 26.83 kg/m2 [facility] Systolic blood pressure 2020-08-10 15:24:00 82 mm[Hg] [facility] Diastolic blood pressure 2020-08-10 15:24:00 53 mm[Hg] [facility] Heart rate 2020-08-10 15:24:00 108 /min [facility] Body temperature 2020-08-10 15:21:00 36.56 Carmela [facility] Respiratory rate 2020-08-10 15:21:00 16 /min [facility] Body height 2020-08-10 15:21:00 177.8 cm [facility] Body weight 2020-08-10 15:21:[address] [facility] BMI 2020-08-10 15:21:00 26.83 kg/m2 [facility] Body temperature 2020-08-09 16:16:00 36.22 Carmela [facility] Body weight 2020-08-09 16:16:00 79.652 kg [facility] BMI 2020-08-09 16:16:00 25.20 kg/m2 [facility] Systolic blood pressure 2020-08-04 22:01:00 145 mm[Hg] [facility] Diastolic blood pressure 2020-08-04 22:01:00 81 mm[Hg] [facility] Heart rate 2020-08-04 22:01:00 89 /min [facility] Body temperature 2020-08-04 22:01:00 36.61 Carmela [facility] Respiratory rate 2020-08-04 22:01:00 18 /min [facility] Oxygen saturation in Arterial blood by Pulse oximetry 2020-08-04 22:01:00 98 /min [facility] Body weight 2020-07-28 12:03:[address] [facility] BMI 2020-07-28 12:03:00 26.87 kg/m2 [facility] Body height 2020-07-14 20:47:[address] [facility] Procedures Procedure Date / Time Performed Performing Clinician Source INSURANCE CORRESPONDENCE 2023-07-17 06:01:00 Doc tor Unassigned, [place] [facility] SARS-COV-2 COVID-19 VACCINE BOOSTER,0.25ML,IM (MODERNA) 2021-04-25 20:23:50 Doctor Unassigned, [place] [facility] HEPLISAV HEP B VACCINE,ADULT 2 DOSE,IM 2020-10-19 14:24:37 Moody Hernandez [facility] PNEUMOCOCCAL VACCINE, 23-VALENT (PNEUMOVAX) 2020-08-31 14:43:35 Moody Hernandez [facility] HEPLISAV HEP B VACCINE,ADULT 2 DOSE,IM 2020-08-10 16:05:26 Moody Hernandez [facility] FLU VACC ([id number]), 6+ MONTHS, IM, QUAD 2020-08-10 16:03:59 Moody Hernandez [facility] ASSIGNMENT OF BENEFITS 2020-08-09 16:03:44 Docto r Unassigned, [place] [facility] POCT GLUCOSE (AUTOMATED) 2020-08-04 23:33:00 Maryann Russ [facility] POCT GLUCOSE (AUTOMATED) 2020-08-04 19:36:00 Maryann Russ [facility] PROTEIN CREAT RATIO URINE RANDOM 2020-08-04 17:56:00 Poly Maguire [facility] SODIUM, URINE RANDOM 2020-08-04 17:56:00 Margo Maguire [facility] POCT GLUCOSE (AUTOMATED) 2020-08-04 15:10:00 Maryann Russ [facility] MAGNESIUM 2020-08-04 10:13:[address] [facility] BASIC METABOLIC PANEL (NA, K, CL, CO2, GLUCOSE, BUN, CREATININE, CA) 2020-08-04 10:13:00 Filiberto Lopez [facility] CBC WITHOUT DIFF 2020-08-04 10:07:00 Filiberto Lopez [facility] BASIC METABOLIC PANEL (NA, K, CL, CO2, GLUCOSE, BUN, CREATININE, CA) 2020-08-04 04:23:00 Filiberto Lopez [facility] POCT GLUCOSE (AUTOMATED) 2020-08-04 03:10:00 Maryann Russ [facility] POCT GLUCOSE (AUTOMATED) 2020-08-03 22:59:00 Maryann Russ [facility] POCT GLUCOSE (AUTOMATED) 2020-08-03 19:05:00 Maryann Russ [facility] POCT GLUCOSE (AUTOMATED) 2020-08-03 15:46:00 Maryann Russ [facility] POCT GLUCOSE (AUTOMATED) 2020-08-03 03:26:00 Maryann Russ [facility] POCT GLUCOSE (AUTOMATED) 2020-08-02 23:07:00 Maryann Russ [facility] FUNGUS (ROUTINE) CULTURE 2020-08-02 19:33:00 Mary Cartwright [facility] TISSUE CULTURE(AEROBIC/ANAEROBIC ) 2020-08-02 19:33:00 Mary Burrell [facility] FOOT DEBRIDEMENT 2020-08-02 18:10:00 Sreekanth Burrell [facility] APPLICATION VACUUM-ASSISTED DRAINAGE DEVICE LOWER EXTREMITY 2020-08-02 18:10:00 Mary Burrell [facility] POCT GLUCOSE (AUTOMATED) 2020-08-02 15:34:00 Lacho Chaudhari [facility] COVID-19 (ID NOW RAPID TESTING) 2020-08-02 10:09:00 Kavin Saucedo [facility] LAB ONLY COVID INTERPRETATION 2020-08-02 10:09:00 Kavin Saucedo [facility] POCT GLUCOSE (AUTOMATED) 2020-08-02 03:25:00 Lacho Chaudhari [facility] POCT GLUCOSE (AUTOMATED) 2020-08-01 23:27:[facility] 2020-08-01 19:55:00 Poly Maguire [facility] POCT GLUCOSE (AUTOMATED) 2020-08-01 19:20:00 Fara, [facility] POCT GLUCOSE (AUTOMATED) 2020-08-01 15:03:00 Fara [facility] BASIC METABOLIC PANEL (NA, K, CL, CO2, GLUCOSE, BUN, CREATININE, CA) 2020-08-01 11:20:00 Jessica [facility] CBC WITHOUT DIFF 2020-08-01 11:20:00 Jessica [facility] POCT GLUCOSE (AUTOMATED) 2020-08-01 02:38:00 Fara [facility] POCT GLUCOSE (AUTOMATED) 2020-07-31 23:35:00 Fara [facility] POCT GLUCOSE (AUTOMATED) 2020-07-31 18:59:00 [facility] POCT GLUCOSE (AUTOMATED) 2020-07-31 15:28:00 Fara [facility] BASIC METABOLIC PANEL (NA, K, CL, CO2, GLUCOSE, BUN, CREATININE, CA) 2020-07-31 10:54:00 Jessica [facility] CBC WITHOUT DIFF 2020-07-31 10:54:00 Jessica [facility] POCT GLUCOSE (AUTOMATED) 2020-07-31 05:17:00 Fara [facility] POCT GLUCOSE (AUTOMATED) 2020-07-31 02:44:00 Fara [facility] POCT GLUCOSE (AUTOMATED) 2020-07-30 23:39:00 Fara [facility] POCT GLUCOSE (AUTOMATED) 2020-07-30 19:05:00 Fara [facility] BASIC METABOLIC PANEL (NA, K, CL, CO2, GLUCOSE, BUN, CREATININE, CA) 2020-07-30 10:03:00 Jessica [facility] CBC WITHOUT DIFF 2020-07-30 10:03:00 Jessica [facility] POCT GLUCOSE (AUTOMATED) 2020-07-30 03:56:00 Fara [facility] MR FOOT LEFT W WO CONTRAST 2020-07-30 03:11:53 Poly Maguire [facility] POCT GLUCOSE (AUTOMATED) 2020-07-29 22:53:00 Fara [facility] POCT GLUCOSE (AUTOMATED) 2020-07-29 18:20:00 Fara [facility] POCT GLUCOSE (AUTOMATED) 2020-07-29 14:45:00 Fara [facility] BASIC METABOLIC PANEL (NA, K, CL, CO2, GLUCOSE, BUN, CREATININE, CA) 2020-07-29 10:35:00 Jessica [facility] CBC WITHOUT DIFF 2020-07-29 10:35:00 Jessica [facility] POCT GLUCOSE (AUTOMATED) 2020-07-29 02:48:00 Fara [facility] XR BONE SURVEY 2020-07-29 02:31:00 Poly Maguire [facility] POCT GLUCOSE (AUTOMATED) 2020-07-28 23:58:00 Fara [facility] POCT GLUCOSE (AUTOMATED) 2020-07-28 18:57:00 Fara [facility] VANCOMYCIN TROUGH 2020-07-28 18:35:00 Filiberto Lopez [facility] POCT GLUCOSE (AUTOMATED) 2020-07-28 16:17:00 Fara [facility] FOOT DEBRIDEMENT 2020-07-28 13:00:00 Sreekanth Burrell [facility] POCT GLUCOSE (AUTOMATED) 2020-07-28 12:05:00 Fara [facility] BASIC METABOLIC PANEL (NA, K, CL, CO2, GLUCOSE, BUN, CREATININE, CA) 2020-07-28 10:44:00 Jessica [facility] CBC WITHOUT DIFF 2020-07-28 10:44:00 Jessica [facility] POCT GLUCOSE (AUTOMATED) 2020-07-28 03:16:00 Fara [facility] POCT GLUCOSE (AUTOMATED) 2020-07-27 23:36:00 Fara [facility] POCT GLUCOSE (AUTOMATED) 2020-07-27 20:37:00 Fara [facility] POCT GLUCOSE (AUTOMATED) 2020-07-27 17:59:00 Fara [facility] POCT GLUCOSE (AUTOMATED) 2020-07-27 14:25:00 Fara [facility] BASIC METABOLIC PANEL (NA, K, CL, CO2, GLUCOSE, BUN, CREATININE, CA) 2020-07-27 10:24:00 Jessica [facility] CBC WITHOUT DIFF 2020-07-27 10:24:00 Jessica [facility] POCT GLUCOSE (AUTOMATED) 2020-07-27 02:22:00 Fara [facility] POCT GLUCOSE (AUTOMATED) 2020-07-26 23:08:00 Fara [facility] COVID-19 (ID NOW RAPID TESTING) 2020-07-26 22:46:00 Ting [facility] LAB ONLY COVID INTERPRETATION 2020-07-26 22:46:00 Ting [facility] POCT GLUCOSE (AUTOMATED) 2020-07-26 18:59:00 Fara [facility] POCT GLUCOSE (AUTOMATED) 2020-07-26 15:04:00 Fara [facility] BASIC METABOLIC PANEL (NA, K, CL, CO2, GLUCOSE, BUN, CREATININE, CA) 2020-07-26 11:15:00 Jessica [facility] CBC WITHOUT DIFF 2020-07-26 11:15:00 Jessica [facility] POCT GLUCOSE (AUTOMATED) 2020-07-26 03:02:00 Fara [facility] POCT GLUCOSE (AUTOMATED) 2020-07-25 23:04:00 Fara [facility] VANCOMYCIN TROUGH 2020-07-25 16:29:00 Bobbi Lopez [facility] POCT GLUCOSE (AUTOMATED) 2020-07-25 16:21:00 Fara [facility] BASIC METABOLIC PANEL (NA, K, CL, CO2, GLUCOSE, BUN, CREATININE, CA) 2020-07-25 12:25:00 Scott Lopez [facility] CBC WITH DIFF 2020-07-25 12:25:00 Scott Lopez [facility] POCT GLUCOSE (AUTOMATED) 2020-07-25 03:10:00 Fara, [facility] POCT GLUCOSE (AUTOMATED) 2020-07-24 23:02:00 Fara, [facility] POCT GLUCOSE (AUTOMATED) 2020-07-24 18:59:00 Fara, [facility] POCT GLUCOSE (AUTOMATED) 2020-07-24 14:35:00 Fara, [facility] POCT GLUCOSE (AUTOMATED) 2020-07-24 09:30:00 Fara, [facility] MAGNESIUM 2020-07-24 06:33:[address] [facility] BASIC METABOLIC PANEL (NA, K, CL, CO2, GLUCOSE, BUN, CREATININE, CA) 2020-07-24 06:33:00 Filiberto Lopez [facility] POCT GLUCOSE (AUTOMATED) 2020-07-24 06:25:00 Fara, [facility] POCT GLUCOSE (AUTOMATED) 2020-07-24 03:04:00 Fara, [facility] POCT GLUCOSE (AUTOMATED) 2020-07-23 23:26:00 Fara, [facility] POCT GLUCOSE (AUTOMATED) 2020-07-23 19:48:00 Fara, [facility] POCT GLUCOSE (AUTOMATED) 2020-07-23 16:17:00 Fara, [facility] MAGNESIUM 2020-07-23 10:41:[address] [facility] BASIC METABOLIC PANEL (NA, K, CL, CO2, GLUCOSE, BUN, CREATININE, CA) 2020-07-23 10:41:00 Filiberto Lopez [facility] VANCOMYCIN RANDOM LEVEL 2020-07-23 10:41:00 Jessica [facility] POCT GLUCOSE (AUTOMATED) 2020-07-23 10:33:00 Lacho Chaudhari [facility] POCT GLUCOSE (AUTOMATED) 2020-07-23 06:01:00 Fara [facility] POCT GLUCOSE (AUTOMATED) 2020-07-23 03:35:00 Fara [facility] POCT GLUCOSE (AUTOMATED) 2020-07-22 23:41:00 Fara [facility] BASIC METABOLIC PANEL (NA, K, CL, CO2, GLUCOSE, BUN, CREATININE, CA) 2020-07-22 20:27:00 Filiberto Lopez [facility] POCT GLUCOSE (AUTOMATED) 2020-07-22 19:05:00 Fara [facility] POCT GLUCOSE (AUTOMATED) 2020-07-22 15:03:00 Fara [facility] MAGNESIUM 2020-07-22 11:49:[address] [facility] BASIC METABOLIC PANEL (NA, K, CL, CO2, GLUCOSE, BUN, CREATININE, CA) 2020-07-22 11:49:00 Filiberto Lopez [facility] CBC WITHOUT DIFF 2020-07-22 11:49:00 Filiberto Lopez [facility] POCT GLUCOSE (AUTOMATED) 2020-07-22 11:48:00 Fara [facility] POCT GLUCOSE (AUTOMATED) 2020-07-22 10:07:00 Fara [facility] POCT GLUCOSE (AUTOMATED) 2020-07-22 08:50:00 Fara [facility] POCT GLUCOSE (AUTOMATED) 2020-07-22 06:26:00 Fara [facility] POCT GLUCOSE (AUTOMATED) 2020-07-22 04:32:00 Fara [facility] CREATININE, URINE RANDOM 2020-07-22 00:15:00 Filiberto Lopez [facility] SODIUM, URINE RANDOM 2020-07-22 00:15:00 Torito Lopez [facility] POCT GLUCOSE (AUTOMATED) 2020-07-22 00:00:00 Lacho Chaudhari [facility] VANCOMYCIN TROUGH 2020-07-21 21:11:00 Patricio Elam [facility] POCT GLUCOSE (AUTOMATED) 2020-07-21 20:44:00 Lacho Chaudhari [facility] POCT GLUCOSE (AUTOMATED) 2020-07-21 18:09:00 Lacho Chaudhari [facility] FUNGUS (ROUTINE) CULTURE 2020-07-21 17:45:08 Mary Cartwright [facility] TISSUE CULTURE(AEROBIC/ANAEROBIC ) 2020-07-21 17:45:00 Mary Burrell [facility] FOOT DEBRIDEMENT 2020-07-21 17:09:00 Sreekanth Burrell [facility] COVID-19 (ID NOW RAPID TESTING) 2020-07-21 16:19:00 Porter [facility] LAB ONLY COVID INTERPRETATION 2020-07-21 16:19:00 Ting [facility] POCT GLUCOSE (AUTOMATED) 2020-07-21 13:47:00 Lacho Chaudhari [facility] MAGNESIUM 2020-07-21 09:31:00 Kamaljit Dickerson [facility] BASIC METABOLIC PANEL (NA, K, CL, CO2, GLUCOSE, BUN, CREATININE, CA) 2020-07-21 09:31:00 Kamaljit Dickerson [facility] CBC WITH DIFF 2020-07-21 09:31:[address] [facility] POCT GLUCOSE (AUTOMATED) 2020-07-21 09:30:00 Lacho Chaudhari [facility] POCT GLUCOSE (AUTOMATED) 2020-07-21 09:28:00 Fara [facility] POCT GLUCOSE (AUTOMATED) 2020-07-21 03:24:00 Fara [facility] VANCOMYCIN TROUGH 2020-07-21 02:42:00 Filiberto Lopez [facility] POCT GLUCOSE (AUTOMATED) 2020-07-20 23:37:00 Fara [facility] POCT GLUCOSE (AUTOMATED) 2020-07-20 18:42:00 Fara [facility] POCT GLUCOSE (AUTOMATED) 2020-07-20 15:00:00 Fara [facility] MAGNESIUM 2020-07-20 10:49:00 Kamaljit Dickerson [facility] BASIC METABOLIC PANEL (NA, K, CL, CO2, GLUCOSE, BUN, CREATININE, CA) 2020-07-20 10:49:00 Kamaljit Dickerson [facility] CBC WITH DIFF 2020-07-20 10:49:[address] [facility] POCT GLUCOSE (AUTOMATED) 2020-07-20 10:39:00 Fara [facility] POCT GLUCOSE (AUTOMATED) 2020-07-20 05:22:00 Fara [facility] POCT GLUCOSE (AUTOMATED) 2020-07-20 02:36:00 Fara [facility] POCT GLUCOSE (AUTOMATED) 2020-07-20 01:10:00 Fara, [facility] POCT GLUCOSE (AUTOMATED) 2020-07-20 00:58:00 Fara [facility] VANCOMYCIN TROUGH 2020-07-19 21:39:00 Filiberto Lopez [facility] POCT GLUCOSE (AUTOMATED) 2020-07-19 20:06:00 Fara [facility] POCT GLUCOSE (AUTOMATED) 2020-07-19 18:16:00 Fara [facility] FUNGUS (ROUTINE) CULTURE 2020-07-19 17:30:53 Elsa Cartwrightatosin Melecio [facility] TISSUE CULTURE(AEROBIC/ANAEROBIC ) 2020-07-19 17:30:53 Elsa Burrellatosin Melecio [facility] ASPIRATE OR ABSCESS CULTURE(AEROBIC/ANAEROBIC ) 2020-07-19 17:29:03 Elsa Burrellatosin Melecio [facility] AFB CULTURE 2020-07-19 17:29:03 OgJay lambatosin Melecio [facility] FUNGUS (ROUTINE) CULTURE 2020-07-19 17:29:03 Ogu michaelleana, Mary A [facility] FOOT DEBRIDEMENT 2020-07-19 16:48:00 Sreekanth Burrell [facility] POCT GLUCOSE (AUTOMATED) 2020-07-19 14:16:00 Vladimir [facility] MAGNESIUM 2020-07-19 11:46:00 Kamaljit Dickerson [facility] BASIC METABOLIC PANEL (NA, K, CL, CO2, GLUCOSE, BUN, CREATININE, CA) 2020-07-19 11:46:00 Kamaljit Dickerson [facility] CBC WITH DIFF 2020-07-19 11:46:[address] [facility] POCT GLUCOSE (AUTOMATED) 2020-07-19 11:21:00 Vladimir [facility] POCT GLUCOSE (AUTOMATED) 2020-07-19 07:54:00 Vladimir [facility] POCT GLUCOSE (AUTOMATED) 2020-07-19 03:09:00 [facility] 2020-07-18 23:00:00 Vladimir [facility] POCT GLUCOSE (AUTOMATED) 2020-07-18 18:41:00 Vladimir [facility] VANCOMYCIN TROUGH 2020-07-18 14:44:00 [facility] 2020-07-18 14:37:00 Darrion Saucedo [facility] POCT GLUCOSE (AUTOMATED) 2020-07-18 14:14:00 Vladimir [facility] POCT GLUCOSE (AUTOMATED) 2020-07-18 10:19:00 Vladimir [facility] CBC WITH DIFF 2020-07-18 10:16:[address] [facility] MAGNESIUM 2020-07-18 10:15:00 Kamaljit Dickerson [facility] BASIC METABOLIC PANEL (NA, K, CL, CO2, GLUCOSE, BUN, CREATININE, CA) 2020-07-18 10:15:00 Kamaljit Dickerson [facility] POCT GLUCOSE (AUTOMATED) 2020-07-18 06:00:00 Vladimir [facility] POCT GLUCOSE (AUTOMATED) 2020-07-18 01:45:00 Vladimir [facility] POCT GLUCOSE (AUTOMATED) 2020-07-17 22:55:00 Vladimir [facility] POCT GLUCOSE (AUTOMATED) 2020-07-17 21:38:00 [facility] POCT GLUCOSE (AUTOMATED) 2020-07-17 17:58:00 Vladimir [facility] POCT GLUCOSE (AUTOMATED) 2020-07-17 13:12:00 Vladimir [facility] MAGNESIUM 2020-07-17 11:08:00 Kamaljit Dickerson [facility] BASIC METABOLIC PANEL (NA, K, CL, CO2, GLUCOSE, BUN, CREATININE, CA) 2020-07-17 11:08:00 Kamaljit Dickerson [facility] CBC WITH DIFF 2020-07-17 11:08:[address] [facility] POCT GLUCOSE (AUTOMATED) 2020-07-17 09:58:00 Vladimir [facility] POCT GLUCOSE (AUTOMATED) 2020-07-17 05:49:00 Vladimir [facility] POCT GLUCOSE (AUTOMATED) 2020-07-17 02:15:00 Vladimir [facility] POCT GLUCOSE (AUTOMATED) 2020-07-16 22:50:00 [facility]) 2020-07-16 18:58:00 Vladimir [facility] VANCOMYCIN TROUGH 2020-07-16 17:33:00 Kamaljit Dickerson [facility] POCT GLUCOSE (AUTOMATED) 2020-07-16 15:14:00 Vladimir [facility] MAGNESIUM 2020-07-16 10:12:00 Kamaljit Dickerson [facility] BASIC METABOLIC PANEL (NA, K, CL, CO2, GLUCOSE, BUN, CREATININE, CA) 2020-07-16 10:12:00 Kamaljit Dickerson [facility] CBC WITH DIFF 2020-07-16 10:12:[address] [facility] POCT GLUCOSE (AUTOMATED) 2020-07-16 10:02:00 [facility] 2020-07-16 06:21:00 Vladimir [facility] POCT GLUCOSE (AUTOMATED) 2020-07-16 02:12:00 Vladimir [facility] POCT GLUCOSE (AUTOMATED) 2020-07-15 23:46:00 Vladimir [facility] FUNGUS (ROUTINE) CULTURE 2020-07-15 20:56:36 OgElsa collinsatosin Melecio [facility] TISSUE CULTURE(AEROBIC/ANAEROBIC ) 2020-07-15 20:56:36 Elsa Burrellatosin Melecio [facility] ASPIRATE OR ABSCESS CULTURE(AEROBIC/ANAEROBIC ) 2020-07-15 20:51:22 Elsa Burrellatosin A [facility] AFB CULTURE 2020-07-15 20:51:22 Jay Burrellatosin Melecio [facility] FUNGUS (ROUTINE) CULTURE 2020-07-15 20:51:22 OgElsa collinsatosin A [facility] FOOT DEBRIDEMENT 2020-07-15 20:18:00 OgunlanSreekanth vargaswatosin A [facility] POCT GLUCOSE (AUTOMATED) 2020-07-15 19:54:00 [facility] 2020-07-15 17:59:00 [facility] XR ANKLE 3+ VW LEFT 2020-07-15 16:01:00 Elsa Burrellatosin Melecio [facility] XR FOOT 3+ VW LEFT 2020-07-15 16:01:00 Mary Burrell [facility] POCT GLUCOSE (AUTOMATED) 2020-07-15 14:25:00 Inga Paez [facility] MAGNESIUM 2020-07-15 10:36:00 Kamaljit Dickerson [facility] C-REACTIVE PROTEIN 2020-07-15 10:36:00 Kamaljit Dickerson [facility] BASIC METABOLIC PANEL (NA, K, CL, CO2, GLUCOSE, BUN, CREATININE, CA) 2020-07-15 10:36:00 Kamaljit Dickerson [facility] LIPID PANEL (75094)(TOTAL CHOLESTEROL, TRIGLYCERIDES, HDL) 2020-07-15 10:36:00 Kavin Saucedo [facility] CBC WITH DIFF 2020-07-15 10:36:[address] [facility] POCT GLUCOSE (AUTOMATED) 2020-07-15 10:25:00 Inga Paez [facility] POCT GLUCOSE (AUTOMATED) 2020-07-15 06:20:00 [facility] 2020-07-15 02:48:00 Inga Paezbeth [facility] CT TIBIA FIBULA LEFT W CONTRAST 2020-07-15 00:27:00 Kamaljit Dickerson [facility] POCT GLUCOSE (AUTOMATED) 2020-07-14 23:38:00 Inga Paezbeth [facility] SEDIMENTATION RATE 2020-07-14 23:33:00 Kamaljit Dickerson [facility] WOUND/ASPIRATE OR ABSCESS CULTURE 2020-07-14 23:28:00 Kamaljit Dickerson [facility] WOUND CULTURE 2020-07-14 23:28:[address] [facility] BLOOD CULTURE SCREEN 2020-07-14 17:58:00 Lavinia Ash [facility] LACTIC ACID WHOLE BLOOD 2020-07-14 16:28:00 Arsenio Ash [facility] BLOOD CULTURE SCREEN 2020-07-14 16:26:00 Lavinia Ash [facility] BASIC METABOLIC PANEL (NA, K, CL, CO2, GLUCOSE, BUN, CREATININE, CA) 2020-07-14 16:26:00 Lavinia Ash [facility] CBC WITH DIFF 2020-07-14 16:26:00 Lavinia Ash [facility] GLYCOSYLATED HEMOGLOBIN (A1C) 2020-07-14 16:26:00 Kamaljit Dickerson [facility] COVID-19 (ID NOW RAPID TESTING) 2020-07-14 16:26:00 Lavinia Ash [facility] LAB ONLY COVID INTERPRETATION 2020-07-14 16:26:00 Lavinia Ash [facility] NOTICE OF PRIVACY PRACTICES 2020-07-14 16:04:08 Doctor Unassigned, [place] [facility] CONSENT/REFUSAL FOR DIAGNOSIS AND TREATMENT 2020-07-14 16:03:48 Doctor Unassigned, [place] [facility] AGREEMENTS AUTHORIZATIONS AND IRREVOCABLE ASSIGNMENTS (FORM 2000) 2020-07-14 06:01:00 Doctor Unassigned, [place] [facility] HOSPITAL ADMISSION 2020-07-14 06:01:00 Doctor Un assigned, [place] [facility] Encounters Start Date/Time End Date/Time Encounter Type Admission Type Attending [facility] Care Department Encounter ID Source 2016-05-02 00:00:00 2024-07-25 04:01:33 Orders Only Doctor Unassigned, [place] Doctor Unassigned, [place] [facility] ([place] [id number] 350.1.13.10 4.2.7.2.686 [id number] [facility] 2016-05-30 00:00:00 2024-07-25 04:00:04 Orders Only Doctor Unassigned, [place] Doctor Unassigned, [place] [facility] ([place]) 1.2.840.114 350.1.13.10 4.2.7.2.686 [id number] [facility] 2016-09-14 00:00:00 2024-07-25 03:52:40 Orders Only Doctor Unassigned, [place] Doctor Unassigned, [place] [facility] ([place]) 1.2.840.114 350.1.13.10 4.2.7.2.686 [id number] [facility] 2016-10-12 00:00:00 2024-07-25 03:49:47 Orders Only Doctor Unassigned, [place] Doctor Unassigned, [place] [facility] 1.2.840.114 350.1.13.10 4.2.7.2.686 [id number] [facility] 2017-02-13 00:00:00 2024-07-25 03:39:25 Orders Only Doctor Unassigned, [place] Doctor Unassigned, [place] [facility] ([place] 1.2.840.114 350.1.13.10 4.2.7.2.686 [id number] [facility] 2023-07-17 00:00:00 2023-07-17 00:00:00 Orders Only Doctor Unassigned, [place] [facility] 1.20.114 350.1.13.10 4.2.7.2.686 [id number] [facility] 2021-04-25 14:02:12 2021-04-25 14:02:20 Imm/Inj Visit Nurse, Skip Podyan Immunizatio Deon Dodson [facility] 1.2.114 350.1.13.10 4.2.7.2.686 [id number] [facility] 2021-04-25 14:00:00 2021-04-25 14:00:00 Outpatient R DEON PELAEZ [facility] [id number] [facility] 2020-10-19 09:35:54 2020-10-19 09:53:45 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 [facility] Moody Hernandez [facility] 1.2.840.114 350.1.13.10 4.2.7.2.686 [id number] [facility] 2020-10-19 09:30:00 2020-10-19 09:30:00 Outpatient R VARGHESE HERNANDEZINDA [facility] [id number] [facility] 2020-10-19 08:56:46 2020-10-19 09:26:46 Office Visit [facility] 1.0.114 350.1.13.10 4.2.7.2.686 [id number] [facility] 2020-10-11 08:30:00 2020-10-11 08:30:00 Outpatient R IRINEO BURNS [facility] [id number] [facility] 2020-09-21 15:10:00 2020-09-21 15:10:00 Outpatient R IRINEO BURNS [facility] [id number] [facility] 2020-09-13 08:30:00 2020-09-13 08:30:00 Outpatient R IRINEO BURNS [facility] [id number] [facility] 2020-08-31 15:10:00 2020-08-31 15:10:00 Outpatient R IRINEO BURNS [facility] [id number] [facility] 2020-08-31 10:03:17 2020-08-31 10:09:12 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 [facility] 1.0.114 350.1.13.10 4.2.7.2.686 [id number] [facility] 2020-08-31 09:21:27 2020-08-31 09:59:59 Office Visit [facility] 1.840.114 350.1.13.10 4.2.7.2.686 [id number] [facility] 2020-08-31 09:30:00 2020-08-31 09:30:00 Outpatient R MOODY HERNANDEZ [facility] [id number] [facility] 2020-08-31 00:00:00 2020-08-31 00:00:00 Telephone Moody Hernandez [facility] 1.0.114 350.1.13.10 4.2.7.2.686 [id number] [facility] 2020-08-26 09:30:00 2020-08-26 09:30:00 Outpatient R MARY BURRELL [facility] [id number] [facility] 2020-08-24 00:00:00 2020-08-24 00:00:00 Telephone Mary Burrell [facility] 1.840.114 350.1.13.10 4.2.7.2.686 [id number] [facility] 2020-08-19 11:00:00 2020-08-19 11:00:00 Outpatient MARY TORRE [facility] [id number] [facility] 2020-08-10 10:29:25 2020-08-10 10:54:23 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 [facility]114 350.1.13.10 4.2.7.2.686 [id number] [facility] 2020-08-10 09:17:52 2020-08-10 10:15:44 Office Visit Moody Hernandez [facility] 1..114 350.1.13.10 4.2.7.2.686 [id number] [facility] 2020-08-10 09:00:00 2020-08-10 09:00:00 Outpatient R MOODY HERNANDEZ [facility] [id number] [facility] 2020-08-09 10:15:00 2020-08-09 10:15:00 Outpatient R MARY BURRELL [facility] [id number] [facility] 2020-08-09 10:06:29 2020-08-09 10:07:40 Office Visit Mary Burrell [facility] 1.2840.114 350.1.13.10 4.2.7.2.686 [id number] [facility] 2020-08-09 00:00:00 2020-08-09 00:00:00 Orders Only Doctor Unassigned, [place] [facility] 1.2840.114 350.1.13.10 4.2.7.2.686 [id number] [facility] 2020-08-05 00:00:00 2020-08-05 00:00:00 Transition of Care Sara Dougherty [facility] 1.2840.114 350.1.13.10 4.2.7.2.686 [id number] [facility] 2020-07-14 10:17:00 2020-08-04 18:24:00 Inpatient U MARYANN RUSS [facility] [id number] [facility] 2020-07-14 10:17:00 2020-08-04 18:24:00 Hospital Encounter Lavinia Ash, Inga Chaudhari, Maryann Resendez [facility] 1..114 350.1.13.10 4.2.7.2.686 [id number] [facility] Results Test Description Test Time Test Comments Results Result Co mments Source [facility] [id number] 21:00:00* Test Item Value Reference Range Interpretation Comme nts NA URINE (test code = 1384118215) 82 mmol/L [facility] URINE [id number] 21:00:00* Test Item Value Reference Range Interpretation Comme nts CREAT U (test code = 5248161541) 78.8 mg/dL [facility] CREAT RATIO URINE [id number] 21:00:00* Test Item Value Reference Range Interpretation Comme nts T. PROT U (test code = 2888-6) 61 mg/dL CREAT U (test code = 4040606501) 78.8 mg/dL Protein/Creatinine Ratio Uri ne (test code = 9020343527) 0.0-2.0 [facility] GLUCOSE (AUTOMATED)2020-08-04 19:39:00* Test Item Value Reference Range Interpretation Comme nts POCT GLU (test code = 4805906923) 155 mg/dL 70-110 H Lab Interpretation (test cod e = 11346-9) Abnormal [facility] GLUCOSE (AUTOMATED)2020-08-04 15:14:00* Test Item Value Reference Range Interpretation Comme nts POCT GLU (test code = 0449729176) 106 mg/dL 70-110 Lab Interpretation (test cod e = 41535-7) Normal [facility] [id number] 14:07:00* Test Item Value Reference Range Interpretation Comme nts FUNGUS CULTURE (test code = 580-1) Scant (< 1+) growth Trichophyton rubrum Previous preliminary verified result was Mold on 07/21/2020 at 0932 [employer] INSURANCE INS[employer] Fungus Direct Smear (test code = 30086-6) No Fungi seen on direct prep [facility] (NA, K, CL, CO2, GLUCOSE, BUN, CREATININE, CA)2020-08-04 11:16:00* Test Item Value Reference Range Interpretation Comme nts NA (test code = 2666654068) 134 mmol/L 135-145 L K (test code = 5385085656) 4.2 mmol/L 3.5-5 CL (test code = 5655857811) 102 mmol/L 98-108 CO2 TOTAL (test code = 2597621132) 24 mmol/L 23-31 AGAP (test code = 7321306220) 2-16 BUN (test code = 4811285903) 31 mg/dL 7-23 H GLUCOSE (test code = 7462759071) 126 mg/dL 70-110 H CREATININE (test code = 0013668233) 1.74 mg/dL 0.6-1.25 H CALCIUM (test code = 1862490035) 9.1 mg/dL 8.6-10.6 eGFR Calculation (Non-) (test code = 5357531775) mL/min/1.73m2 eGFR Calculation () (test code = 2423117358) mL/min/1.73m2 DOMENIC (test code = DOMENIC) Association of [...] or abnormalities in imaging tests). Lab Interpretation (test code = 88066-0) [facility]normal [facility] 11:16:00* Test Item Value Reference Range Interpretation Comme nts MAGNESIUM (test code = 9683184758) 2.0 mg/dL 1.7-2.4 Lab Interpretation (test cod e = 49983-2) Normal [facility] WITHOUT [id number] 11:08:00* Test Item Value Reference Range Interpretation Comme nts WBC (test code = 6690-2) See_Comment [Automated message] The system which generated this result transmitted reference range: 4.20 - 10.70 10*3/?L. The reference range was not used to interpret this result as normal/abnormal. RBC (test code = 789-8) See_Comment L [Automated message] The system which generated this result transmitted reference range: 4.26 - 5.52 10*6/?L. The reference range was not used to interpret this result as normal/abnormal. HGB (test code = 718-7) 10.4 g/dL 12.2-16.4 L HCT (test code = 4544-3) 31.5 % 38.4-49.3 L MCH (test code = 785-6) 29.3 pg 26.1-32.7 MCV (test code = 787-2) 88.7 fL 81.7-95.6 MCHC (test code = 786-4) 33.0 g/dL 31.2-35 PLT (test code = 777-3) See_Comment H [Automated message] The system which generated this result transmitted reference range: 150 - 328 10*3/?L. The reference range was not used to interpret this result as normal/abnormal. MPV (test code = 57040-5) 9.9 fL 9.8-13 RDW-CV (test code = 788-0) 12.6 % 12.1-15.4 RDW-SD (test code = 71357-9) 40.8 fL 38.5-51.6 NRBC x10^3 (test code = 9991325386) <0.01 See_Comment [Automated messa ge] The system which generated this result transmitted reference range: 10*3/?L. The reference range was not used to interpret this result as normal/abnormal. NRBC/100 WBC (test code = 7101872176) See_Comment [Automated messa ge] The system which generated this result transmitted reference range: 0.0 - 10.0 /100 WBCs. The reference range was not used to interpret this result as normal/abnormal. IPF % (test code = 5194302474) Lab Interpretation (test code = 37130-0) Abnormal [facility] METABOLIC PANEL (NA, K, CL, CO2, GLUCOSE, BUN, CREATININE, CA)2020-08-04 04:47:00* Test Item Value Reference Range Interpretation Comme nts NA (test code = 7122498764) 132 mmol/L 135-145 L K (test code = 8645018744) 4.3 mmol/L 3.5-5 CL (test code = 3347085309) 99 mmol/L 98-108 CO2 TOTAL (test code = 6826725419) 26 mmol/L 23-31 AGAP (test code = 0847519662) 2-16 BUN (test code = 2274865310) 31 mg/dL 7-23 H GLUCOSE (test code = 1436181896) 185 mg/dL 70-110 H CREATININE (test code = 6355800635) 1.76 mg/dL 0.6-1.25 H CALCIUM (test code = 6277292702) 8.7 mg/dL 8.6-10.6 eGFR Calculation (Non-) (test code = 1481233525) mL/min/1.73m2 eGFR Calculation () (test code = 6895745834) mL/min/1.73m2 DOMENIC (test code = DOMENIC) Association of [...] or abnormalities in imaging tests). Lab Interpretation (test code = 66236-4) Abnormal [facility] GLUCOSE (AUTOMATED)2020-08-04 03:11:00* Test Item Value Reference Range Interpretation Comme nts POCT GLU (test code = 4294661902) 193 mg/dL 70-110 H Lab Interpretation (test cod e = 13373-2) Abnormal [facility] GLUCOSE (AUTOMATED)2020-08-03 23:06:00* Test Item Value Reference Range Interpretation Comme nts POCT GLU (test code = 9244427549) 211 mg/dL 70-110 H Lab Interpretation (test cod e = 32383-5) Abnormal [facility] GLUCOSE (AUTOMATED)2020-08-03 19:11:00* Test Item Value Reference Range Interpretation Comme nts POCT GLU (test code = 4452330355) 182 mg/dL 70-110 H Lab Interpretation (test cod e = 58140-4) Abnormal [facility] GLUCOSE (AUTOMATED)2020-08-03 16:10:00* Test Item Value Reference Range Interpretation Comme nts POCT GLU (test code = 2488426196) 151 mg/dL 70-110 H Lab Interpretation (test cod e = 81338-7) Abnormal [facility] COVID [id number] 05:03:00COVID DMT InterpretationInterpretation/Recommendations: Molecular NAAT Tests for Active Infection with the SARS-CoV-2 Virus: The patient has currently tested negative for the SARS-CoV-2 virus that causes COVID-19 illness. This most likely indicates that the patient does not have an active infectionwith the SARS-CoV-2 virus. However, infection is not completely ruled out as the false negative rate for molecular NAAT testing using a nasopharyngeal sample can be up to 30%, mostly dependent on thetiming of sample collection in relation to illness [...] COVID-19 testing the patient has had at [facility], including molecular NAAT testing (more commonly known as PCR testing and Rapid ID Now testing) and antibody testing. It does not take into account any testing that a patient has had outside of the [facility] medical record. [facility] LABORATORY SERVICESCOVID JyipblhATOQ-RlB-2 Rapid ID NOW (no units) ? ? Date ? Value ? 08/02/2020 ? Not Detected ? ? ? 07/26/2020 ? Not Detected ? ? ? 07/21/2020 ? Not Detected ? ? ? 07/14/2020 ? Not Detected ? [facility]Un[facility])2020-08-03 03:28:00* Test Item Value Reference Range Interpretation Comme nts POCT GLU (test code = 6826374330) 304 mg/dL 70-110 H Lab Interpretation (test cod e = 87712-8) Abnormal [facility] GLUCOSE (AUTOMATED)2020-08-02 23:08:00* Test Item Value Reference Range Interpretation Comme nts POCT GLU (test code = 1338515027) 123 mg/dL 70-110 H Lab Interpretation (test cod e = 47436-1) Abnormal [facility] GLUCOSE (AUTOMATED)2020-08-02 15:36:00* Test Item Value Reference Range Interpretation Comme nts POCT GLU (test code = 7346014821) 178 mg/dL 70-110 H Lab Interpretation (test cod e = 96890-3) Abnormal [facility]) [id number] 14:20:00* Test Item Value Reference Range Interpretation Comme nts FUNGUS CULTURE (test code = 580-1) Scant (< 1+) growth Trichophyton rubrum Fungus Direct Smear (test code = 28936-5) No Fungi seen on direct prep [facility] (ID NOW RAPID TESTING)2020-08-02 10:39:00* Test Item Value Reference Range Interpretation Comme [facility] SARS-CoV-2 Rapid ID NOW (test code = 24277-1) Not Detected Not Detected DOMENIC (test code = DOMENIC) ID NOW COVID-19 As say is an isothermal nucleic acid amplification test intended for the qualitative detection of nucleic acid from SARS-CoV-2 viral RNA in nasopharyngeal (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 It is used under Emergency Use [...] patient testing if clinically indicated. Lab Interpretation (test code = 92297-8) Normal [facility] GLUCOSE (AUTOMATED)2020-08-02 03:26:00* Test Item Value Reference Range Interpretation Comme nts POCT GLU (test code = 7758780596) 233 mg/dL 70-110 H Lab Interpretation (test cod e = 47747-6) Abnormal [facility] GLUCOSE (AUTOMATED)2020-08-01 23:29:00* Test Item Value Reference Range Interpretation Comme nts POCT GLU (test code = 6175990243) 217 mg/dL 70-110 H Lab Interpretation (test cod e = 27225-8) [facility] - Draw immediately prior to the 4TH dose, but, no more than 60 minutes before the NEXT dose. 2020-08-01 21:47:00* Test Item Value Reference Range Interpretation Comme nts VANCO TROUGH (test code = 8727400351) 12.2 ug/mL 10-20 DOMENIC (test code = DOMENIC) Toxic Range: ?>20 ug/mL 15-20 ug/mL is recommended for severe infection or when Vancomycin MARK ANTHONY is greater than or equal to 2. Lab Interpretation (test code = 10184-9) Normal [facility] GLUCOSE (AUTOMATED)2020-08-01 19:21:00* Test Item Value Reference Range Interpretation Comme nts POCT GLU (test code = 0287288642) 288 mg/dL 70-110 H Lab Interpretation (test cod e = 16038-1) Abnormal [facility] GLUCOSE (AUTOMATED)2020-08-01 15:04:00* Test Item Value Reference Range Interpretation Comme nts POCT GLU (test code = 0610579168) 173 mg/dL 70-110 H Lab Interpretation (test cod e = 48190-2) Abnormal [facility] METABOLIC PANEL (NA, K, CL, CO2, GLUCOSE, BUN, CREATININE, CA)2020-08-01 11:58:00* Test Item Value Reference Range Interpretation Comme nts NA (test code = 0702466282) 134 mmol/L 135-145 L K (test code = 6033468261) 4.6 mmol/L 3.5-5 CL (test code = 2409389510) 99 mmol/L 98-108 CO2 TOTAL (test code = 8108954886) 25 mmol/L 23-31 AGAP (test code = 6986518749) 2-16 BUN (test code = 2026896615) 39 mg/dL 7-23 H GLUCOSE (test code = 9027479387) 163 mg/dL 70-110 H CREATININE (test code = 3551892578) 2.04 mg/dL 0.6-1.25 H CALCIUM (test code = 1615389328) 9.2 mg/dL 8.6-10.6 eGFR Calculation (Non-) (test code = 7467321350) mL/min/1.73m2 eGFR Calculation () (test code = 7433853156) mL/min/1.73m2 DOMENIC (test code = DOMENIC) Association of [...] or abnormalities in imaging tests). Lab Interpretation (test code = 96368-7) Abnormal [facility] WITHOUT [id number] 11:37:00* Test Item Value Reference Range Interpretation Comme nts WBC (test code = 6690-2) See_Comment [Automated message] The system which generated this result transmitted reference range: 4.20 - 10.70 10*3/?L. The reference range was not used to interpret this result as normal/abnormal. RBC (test code = 789-8) See_Comment L [Automated message] The system which generated this result transmitted reference range: 4.26 - 5.52 10*6/?L. The reference range was not used to interpret this result as normal/abnormal. HGB (test code = 718-7) 11.7 g/dL 12.2-16.4 L HCT (test code = 4544-3) 35.4 % 38.4-49.3 L MCH (test code = 785-6) 29.0 pg 26.1-32.7 MCV (test code = 787-2) 87.6 fL 81.7-95.6 MCHC (test code = 786-4) 33.1 g/dL 31.2-35 PLT (test code = 777-3) See_Comment H [Automated message] The system which generated this result transmitted reference range: 150 - 328 10*3/?L. The reference range was not used to interpret this result as normal/abnormal. MPV (test code = 94636-2) 8.4 fL 9.8-13 L RDW-CV (test code = 788-0) 12.3 % 12.1-15.4 RDW-SD (test code = 01781-4) 39.6 fL 38.5-51.6 NRBC x10^3 (test code = 6893472661) <0.01 See_Comment [Automated messa ge] The system which generated this result transmitted reference range: 10*3/?L. The reference range was not used to interpret this result as normal/abnormal. NRBC/100 WBC (test code = 2031191879) See_Comment [Automated messa ge] The system which generated this result transmitted reference range: 0.0 - 10.0 /100 WBCs. The reference range was not used to interpret this result as normal/abnormal. IPF % (test code = 4743241946) Lab Interpretation (test code = 20741-6) Abnormal [facility] GLUCOSE (AUTOMATED)2020-08-01 02:39:00* Test Item Value Reference Range Interpretation Comme nts POCT GLU (test code = 4507862066) 192 mg/dL 70-110 H Lab Interpretation (test cod e = 90876-5) Abnormal [facility] GLUCOSE (AUTOMATED)2020-07-31 23:39:00* Test Item Value Reference Range Interpretation Comme nts POCT GLU (test code = 6566298238) 216 mg/dL 70-110 H Lab Interpretation (test cod e = 72796-5) Abnormal [facility] GLUCOSE (AUTOMATED)2020-07-31 19:07:00* Test Item Value Reference Range Interpretation Comme nts POCT GLU (test code = 3234008308) 197 mg/dL 70-110 H Lab Interpretation (test cod e = 15796-9) Abnormal [facility] GLUCOSE (AUTOMATED)2020-07-31 15:31:00* Test Item Value Reference Range Interpretation Comme nts POCT GLU (test code = 7881968954) 131 mg/dL 70-110 H Lab Interpretation (test cod e = 89621-4) Abnormal [facility] WITHOUT [id number] 12:10:00* Test Item Value Reference Range Interpretation Comme nts WBC (test code = 6690-2) See_Comment [Automated message] The system which generated this result transmitted reference range: 4.20 - 10.70 10*3/?L. The reference range was not used to interpret this result as normal/abnormal. RBC (test code = 789-8) See_Comment L [Automated message] The system which generated this result transmitted reference range: 4.26 - 5.52 10*6/?L. The reference range was not used to interpret this result as normal/abnormal. HGB (test code = 718-7) 11.6 g/dL 12.2-16.4 L HCT (test code = 4544-3) 34.7 % 38.4-49.3 L MCH (test code = 785-6) 29.6 pg 26.1-32.7 MCV (test code = 787-2) 88.5 fL 81.7-95.6 MCHC (test code = 786-4) 33.4 g/dL 31.2-35 PLT (test code = 777-3) See_Comment H [Automated message] The system which generated this result transmitted reference range: 150 - 328 10*3/?L. The reference range was not used to interpret this result as normal/abnormal. MPV (test code = 16435-8) 9.1 fL 9.8-13 L RDW-CV (test code = 788-0) 12.4 % 12.1-15.4 RDW-SD (test code = 69037-6) 40.0 fL 38.5-51.6 NRBC x10^3 (test code = 1037001530) <0.01 See_Comment [Automated [employer]] The system which generated this result transmitted reference range: 10*3/?L. The reference range was not used to interpret this result as normal/abnormal. NRBC/100 WBC (test code = 7721410617) See_Comment [Automated [employer]] The system which generated this result transmitted reference range: 0.0 - 10.0 /100 WBCs. The reference range was not used to interpret this result as normal/abnormal. IPF % (test code = 4922732286) Lab Interpretation (test code = 64456-2) Abnormal [facility] METABOLIC PANEL (NA, K, CL, CO2, GLUCOSE, BUN, CREATININE, CA)2020-07-31 11:50:00* Test Item Value Reference Range Interpretation Comme nts NA (test code = 6840329207) 134 mmol/L 135-145 L K (test code = 2479751899) 4.4 mmol/L 3.5-5 CL (test code = 2686958856) 99 mmol/L 98-108 CO2 TOTAL (test code = 3833832677) 26 mmol/L 23-31 AGAP (test code = 6346345167) 2-16 BUN (test code = 8960981287) 32 mg/dL 7-23 H GLUCOSE (test code = 3985264704) 119 mg/dL 70-110 H CREATININE (test code = 5273538103) 1.69 mg/dL 0.6-1.25 H CALCIUM (test code = 6671731460) 9.3 mg/dL 8.6-10.6 eGFR Calculation (Non-) (test code = 6739862506) mL/min/1.73m2 eGFR Calculation () (test code = 0115619462) mL/min/1.73m2 DOMENIC (test code = DOMENIC) Association of [...] or abnormalities in imaging tests). Lab Interpretation (test code = 05196-3) Abnormal [facility] GLUCOSE (AUTOMATED)2020-07-31 05:19:00* Test Item Value Reference Range Interpretation Comme nts POCT GLU (test code = 6835487092) 213 mg/dL 70-110 H Lab Interpretation (test cod e = 29629-5) Abnormal [facility] GLUCOSE (AUTOMATED)2020-07-31 02:45:00* Test Item Value Reference Range Interpretation Comme nts POCT GLU (test code = 0248379782) 313 mg/dL 70-110 H Lab Interpretation (test cod e = 11945-8) Abnormal [facility] GLUCOSE (AUTOMATED)2020-07-30 23:45:00* Test Item Value Reference Range Interpretation Comme nts POCT GLU (test code = 1566712327) 174 mg/dL 70-110 H Lab Interpretation (test cod e = 20612-5) [facility]2020-07-30 19:13:00* Test Item Value Reference Range Interpretation Bossman laura POCT GLU (test code = 7954289074) 177 mg/dL 70-110 H Lab Interpretation (test cod e = 69653-7) [facility] W WO [id number] 11:59:42 Forefoot plantar ulceration/gas and/or foreign debris [...] There is otherwise diffuse subcutaneous and intramuscular M8lofhym increase with enhancement. [facility], Radiant Results Inft User - 07/30/2020 6:00 AM CSTEXAM:MRI LEFT FOOT WITH AND WITHOUT IV CONTRAST HISTORY: Osteomyelitis, foot COMPARISON: Plain films dated 07/15/2020TECHNIQUE AND FINDINGS:1.5T multiplanar multiweighted MR imaging ofthe left foot was performedwith utilization of 20 cc IV ProHance.T2 bone marrow signal increase, F5prkqnb decrease with post gadoliniumenhancement involves the hallux [...] of the first throughfifth rays. There is other boykin diffuse subcutaneous and intramuscular L8oujmty increase with enhancement.IMPRESSIONForefoot plantar ulceration/gas and/or foreign debris with communicatingdorsal forefoot abscess partially surrounding the extensor tendons.Osteomyelitis involving the hallux sesamoid metatarsals, second metatars alhead and second phalanx with possible involvement of the third metatarsalhead. [facility] (NA, K, CL, CO2, GLUCOSE, BUN, CREATININE, CA)2020-07-30 10:56:00* Test Item Value Reference Range Interpretation Comme nts NA (test code = 0730179165) 132 mmol/L 135-145 L K (test code = 8030043094) 4.6 mmol/L 3.5-5 CL (test code = 6785148792) 99 mmol/L 98-108 CO2 TOTAL (test code = 5521884073) 27 mmol/L 23-31 AGAP (test code = 5818003839) 2-16 BUN (test code = 3491861358) 28 mg/dL 7-23 H GLUCOSE (test code = 0381830908) 142 mg/dL 70-110 H CREATININE (test code = 0303756595) 1.60 mg/dL 0.6-1.25 H CALCIUM (test code = 8221851457) 9.1 mg/dL 8.6-10.6 eGFR Calculation (Non-) (test code = 9293932767) mL/min/1.73m2 eGFR Calculation () (test code = 0748580001) mL/min/1.73m2 DOMENIC (test code = DOMENIC) Association of [...] or abnormalities in imaging tests). Lab Interpretation (test code = 49571-4) Abnormal [facility] WITHOUT [id number] 10:46:00* Test Item Value Reference Range Interpretation Comme nts WBC (test code = 6690-2) See_Comment [Automated message] The system which generated this result transmitted reference range: 4.20 - 10.70 10*3/?L. The reference range was not used to interpret this result as normal/abnormal. RBC (test code = 789-8) See_Comment L [Automated message] The system which generated this result transmitted reference range: 4.26 - 5.52 10*6/?L. The reference range was not used to interpret this result as normal/abnormal. HGB (test code = 718-7) 11.2 g/dL 12.2-16.4 L HCT (test code = 4544-3) 34.0 % 38.4-49.3 L MCH (test code = 785-6) 29.3 pg 26.1-32.7 MCV (test code = 787-2) 89.0 fL 81.7-95.6 MCHC (test code = 786-4) 32.9 g/dL 31.2-35 PLT (test code = 777-3) See_Comment H [Automated message] The system which generated this result transmitted reference range: 150 - 328 10*3/?L. The reference range was not used to interpret this result as normal/abnormal. MPV (test code = 85222-3) 8.9 fL 9.8-13 L RDW-CV (test code = 788-0) 12.2 % 12.1-15.4 RDW-SD (test code = 59411-9) 39.3 fL 38.5-51.6 NRBC x10^3 (test code = 8901926853) <0.01 See_Comment [Automated messa ge] The system which generated this result transmitted reference range: 10*3/?L. The reference range was not used to interpret this result as normal/abnormal. NRBC/100 WBC (test code = 9839955716) See_Comment [Automated messa ge] The system which generated this result transmitted reference range: 0.0 - 10.0 /100 WBCs. The reference range was not used to interpret this result as normal/abnormal. IPF % (test code = 3443069785) Lab Interpretation (test code = 39810-5) Abnormal [facility] GLUCOSE (AUTOMATED)2020-07-30 03:57:00* Test Item Value Reference Range Interpretation Comme nts POCT GLU (test code = 6242592533) 182 mg/dL 70-110 H Lab Interpretation (test cod e = 29457-9) Abnormal [facility] GLUCOSE (AUTOMATED)2020-07-29 22:55:00* Test Item Value Reference Range Interpretation Comme nts POCT GLU (test code = 3496507679) 194 mg/dL 70-110 H Lab Interpretation (test cod e = 44897-3) Abnormal [facility] GLUCOSE (AUTOMATED)2020-07-29 18:23:00* Test Item Value Reference Range Interpretation Comme nts POCT GLU (test code = 4167736049) 189 mg/dL 70-110 H Lab Interpretation (test cod e = 58739-0) Abnormal [facility] GLUCOSE (AUTOMATED)2020-07-29 14:47:00* Test Item Value Reference Range Interpretation Comme nts POCT GLU (test code = 3699900218) 132 mg/dL 70-110 H Lab Interpretation (test cod e = 97172-9) [facility] BONE [id number] 11:19:53No acute osseous abnormalities. The patient is safe [...] Mildarthritic changes seen at the acromioclavicular joints. [facility], Radiant Results Inft User - 07/29/2020 5:20 AM CSTEXAM:XR BONE SURVEYHISTORY:MRI clearance COMPARISON:NoneFINDINGS: Limited imaging of the axial and appendicular skeleton demonstratessurgical clips over the right lower quadrant. Atelectasis versus earlyinfiltrate is seen within the left lower lung. 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 Moderate arthritic changes involve both knees, more extensive onthe left. 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 Marked swelling of t hebilateral feet is seen. Diffuse vascular calcifications are present. Mildarthritic changes seen at the acromioclavicular joints.IMPRESSIONNo acute osseous abnormalities.The patient is safe for MR imaging.[facility] (NA, K, CL, CO2, GLUCOSE, BUN, CREATININE, CA)2020-07-29 11:12:00* Test Item Value Reference Range Interpretation Comme nts NA (test code = 2877314343) 133 mmol/L 135-145 L K (test code = 9130623472) 4.6 mmol/L 3.5-5 CL (test code = 1304298552) 99 mmol/L 98-108 CO2 TOTAL (test code = 0840834285) 25 mmol/L 23-31 AGAP (test code = 5495376986) 2-16 BUN (test code = 1136297907) 26 mg/dL 7-23 H GLUCOSE (test code = 2511689063) 148 mg/dL 70-110 H CREATININE (test code = 3134393205) 1.65 mg/dL 0.6-1.25 H CALCIUM (test code = 7810342475) 9.1 mg/dL 8.6-10.6 eGFR Calculation (Non-) (test code = 2889977271) mL/min/1.73m2 eGFR Calculation () (test code = 7411465375) mL/min/1.73m2 DOMENIC (test code = DOMENIC) Association of [...] or abnormalities in imaging tests). Lab Interpretation (test code = 00670-1) Abnormal [facility] WITHOUT [id number] 10:45:00* Test Item Value Reference Range Interpretation Comme nts WBC (test code = 6690-2) See_Comment H [Automated message] The system which generated this result transmitted reference range: 4.20 - 10.70 10*3/?L. The reference range was not used to interpret this result as normal/abnormal. RBC (test code = 789-8) See_Comment L [Automated message] The system which generated this result transmitted reference range: 4.26 - 5.52 10*6/?L. The reference range was not used to interpret this result as normal/abnormal. HGB (test code = 718-7) 11.8 g/dL 12.2-16.4 L HCT (test code = 4544-3) 35.0 % 38.4-49.3 L MCH (test code = 785-6) 30.0 pg 26.1-32.7 MCV (test code = 787-2) 89.1 fL 81.7-95.6 MCHC (test code = 786-4) 33.7 g/dL 31.2-35 PLT (test code = 777-3) See_Comment H [Automated message] The system which generated this result transmitted reference range: 150 - 328 10*3/?L. The reference range was not used to interpret this result as normal/abnormal. MPV (test code = 39736-7) 8.7 fL 9.8-13 L RDW-CV (test code = 788-0) 12.2 % 12.1-15.4 RDW-SD (test code = 61348-4) 39.5 fL 38.5-51.6 NRBC x10^3 (test code = 7760582080) <0.01 See_Comment [Automated messa ge] The system which generated this result transmitted reference range: 10*3/?L. The reference range was not used to interpret this result as normal/abnormal. NRBC/100 WBC (test code = 9729741207) See_Comment [Automated [employer]] The system which generated this result transmitted reference range: 0.0 - 10.0 /100 WBCs. The reference range was not used to interpret this result as normal/abnormal. IPF % (test code = 5067042847) Lab Interpretation (test code = 45029-1) Abnormal [facility] GLUCOSE (AUTOMATED)2020-07-29 02:54:00* Test Item Value Reference Range Interpretation Comme nts POCT GLU (test code = 6562854241) 238 mg/dL 70-110 H Lab Interpretation (test cod e = 82205-4) Abnormal [facility] GLUCOSE (AUTOMATED)2020-07-29 00:00:00* Test Item Value Reference Range Interpretation Comme nts POCT GLU (test code = 2447444457) 286 mg/dL 70-110 H Lab Interpretation (test cod e = 54384-7) [facility] T[facility] Level - Draw immediately prior to the NEXT dose, but, no more than 60 minutes before the NEXT dose. 2020-07-28 19:59:00* Test Item Value Reference Range Interpretation Comme nts VANCO TROUGH (test code = 0270608317) 10.5 ug/mL 10-20 DOMENIC (test code = DOMENIC) Toxic Range: ?>20 ug/mL 15-20 ug/mL is recommended for severe infection or when Vancomycin MARK ANTHONY is greater than or equal to 2. Lab Interpretation (test code = 84716-9) Normal [facility] GLUCOSE (AUTOMATED)2020-07-28 19:07:00* Test Item Value Reference Range Interpretation Comme nts POCT GLU (test code = 1778058563) 301 mg/dL 70-110 H Notified Provide r Lab Interpretation (test code = 93562-7) Abnormal [facility] GLUCOSE (AUTOMATED)2020-07-28 16:20:00* Test Item Value Reference Range Interpretation Comme nts POCT GLU (test code = 3164824150) 154 mg/dL 70-110 H Lab Interpretation (test cod e = 11086-8) Abnormal [facility] GLUCOSE (AUTOMATED)2020-07-28 12:06:00* Test Item Value Reference Range Interpretation Comme [facility] POCT GLU (test code = 3202086851) 167 mg/dL 70-110 H Lab Interpretation (test cod e = 34744-4) Abnormal [facility] METABOLIC PANEL (NA, K, CL, CO2, GLUCOSE, BUN, CREATININE, CA)2020-07-28 11:49:00* Test Item Value Reference Range Interpretation Comme [facility] NA (test code = 1121694379) 134 mmol/L 135-145 L K (test code = 0045644693) 4.2 mmol/L 3.5-5 CL (test code = 7821076841) 100 mmol/L 98-108 CO2 TOTAL (test code = 2329161366) 29 mmol/L 23-31 AGAP (test code = 1273457278) 2-16 BUN (test code = 7947136431) 26 mg/dL 7-23 H GLUCOSE (test code = 6773179231) 156 mg/dL 70-110 H CREATININE (test code = 5447503666) 1.86 mg/dL 0.6-1.25 H CALCIUM (test code = 8297076185) 9.0 mg/dL 8.6-10.6 eGFR Calculation (Non-) (test code = 1839582726) mL/min/1.73m2 eGFR Calculation () (test code = 1858042261) mL/min/1.73m2 DOMENIC (test code = DOMENIC) Association of [...] or abnormalities in imaging tests). Lab Interpretation (test code = 44455-8) Abnormal [facility] WITHOUT [id number] 11:16:00* Test Item Value Reference Range Interpretation Comme nts WBC (test code = 6690-2) See_Comment [Automated message] The system which generated this result transmitted reference range: 4.20 - 10.70 10*3/?L. The reference range was not used to interpret this result as normal/abnormal. RBC (test code = 789-8) See_Comment L [Automated message] The system which generated this result transmitted reference range: 4.26 - 5.52 10*6/?L. The reference range was not used to interpret this result as normal/abnormal. HGB (test code = 718-7) 10.5 g/dL 12.2-16.4 L HCT (test code = 4544-3) 31.6 % 38.4-49.3 L MCH (test code = 785-6) 29.3 pg 26.1-32.7 MCV (test code = 787-2) 88.3 fL 81.7-95.6 MCHC (test code = 786-4) 33.2 g/dL 31.2-35 PLT (test code = 777-3) See_Comment H [Automated message] The system which generated this result transmitted reference range: 150 - 328 10*3/?L. The reference range was not used to interpret this result as normal/abnormal. MPV (test code = 35783-8) 8.7 fL 9.8-13 L RDW-CV (test code = 788-0) 12.2 % 12.1-15.4 RDW-SD (test code = 83064-1) 39.1 fL 38.5-51.6 NRBC x10^3 (test code = 9231240080) <0.01 See_Comment [Automated messa ge] The system which generated this result transmitted reference range: 10*3/?L. The reference range was not used to interpret this result as normal/abnormal. NRBC/100 WBC (test code = 9528160506) See_Comment [Automated [employer]] The system which generated this result transmitted reference range: 0.0 - 10.0 /100 WBCs. The reference range was not used to interpret this result as normal/abnormal. IPF % (test code = 8732334027) Lab Interpretation (test code = 53655-7) Abnormal [facility] GLUCOSE (AUTOMATED)2020-07-28 03:20:00* Test Item Value Reference Range Interpretation Comme nts POCT GLU (test code = 0140820186) 255 mg/dL 70-110 H Lab Interpretation (test cod e = 54144-1) Abnormal [facility] GLUCOSE (AUTOMATED)2020-07-27 23:37:00* Test Item Value Reference Range Interpretation Comme nts POCT GLU (test code = 9517397702) 202 mg/dL 70-110 H Lab Interpretation (test cod e = 09620-3) Abnormal [facility] GLUCOSE (AUTOMATED)2020-07-27 20:39:00* Test Item Value Reference Range Interpretation Comme nts POCT GLU (test code = 5530138478) 119 mg/dL 70-110 H Lab Interpretation (test cod e = 18682-3) Abnormal [facility] GLUCOSE (AUTOMATED)2020-07-27 18:08:00* Test Item Value Reference Range Interpretation Comme nts POCT GLU (test code = 1799427711) 152 mg/dL 70-110 H Lab Interpretation (test cod e = 51460-3) Abnormal [facility] GLUCOSE (AUTOMATED)2020-07-27 14:31:00* Test Item Value Reference Range Interpretation Comme nts POCT GLU (test code = 3154197930) 145 mg/dL 70-110 H Lab Interpretation (test cod e = 36416-3) Abnormal [facility] METABOLIC PANEL (NA, K, CL, CO2, GLUCOSE, BUN, CREATININE, CA)2020-07-27 11:11:00* Test Item Value Reference Range Interpretation Comme nts NA (test code = 6622717934) 133 mmol/L 135-145 L K (test code = 2199065409) 4.3 mmol/L 3.5-5 Slight hemolysis CL (test code = 0509486611) 100 mmol/L 98-108 CO2 TOTAL (test code = 4244963647) 28 mmol/L 23-31 AGAP (test code = 2428354184) 2-16 BUN (test code = 2981638007) 21 mg/dL 7-23 Slight hemolysis GLUCOSE (test code = 8572238192) 151 mg/dL 70-110 H CREATININE (test code = 0035876898) 1.51 mg/dL 0.6-1.25 H CALCIUM (test code = 3676604155) 8.8 mg/dL 8.6-10.6 eGFR Calculation (Non-) (test code = 1480431598) mL/min/1.73m2 eGFR Calculation () (test code = 9255877156) mL/min/1.73m2 DOMENIC (test code = DOMENIC) Association of [...] or abnormalities in imaging tests). Lab Interpretation (test code = 04547-5) [facility] [id number] 10:56:00* Test Item Value Reference Range Interpretation Comme nts WBC (test code = 6690-2) See_Comment [Automated message] The system which generated this result transmitted reference range: 4.20 - 10.70 10*3/?L. The reference range was not used to interpret this result as normal/abnormal. RBC (test code = 789-8) See_Comment L [Automated message] The system which generated this result transmitted reference range: 4.26 - 5.52 10*6/?L. The reference range was not used to interpret this result as normal/abnormal. HGB (test code = 718-7) 11.1 g/dL 12.2-16.4 L HCT (test code = 4544-3) 33.2 % 38.4-49.3 L MCH (test code = 785-6) 29.7 pg 26.1-32.7 MCV (test code = 787-2) 88.8 fL 81.7-95.6 MCHC (test code = 786-4) 33.4 g/dL 31.2-35 PLT (test code = 777-3) See_Comment H [Automated message] The system which generated this result transmitted reference range: 150 - 328 10*3/?L. The reference range was not used to interpret this result as normal/abnormal. MPV (test code = 08445-2) 9.2 fL 9.8-13 L RDW-CV (test code = 788-0) 12.1 % 12.1-15.4 RDW-SD (test code = 31624-0) 38.9 fL 38.5-51.6 NRBC x10^3 (test code = 1644297031) <0.01 See_Comment [Automated messa ge] The system which generated this result transmitted reference range: 10*3/?L. The reference range was not used to interpret this result as normal/abnormal. NRBC/100 WBC (test code = 3239357893) See_Comment [Automated [employer]] The system which generated this result transmitted reference range: 0.0 - 10.0 /100 WBCs. The reference range was not used to interpret this result as normal/abnormal. IPF % (test code = 4281332847) Lab Interpretation (test code = 35262-3) Abnormal [facility] ONLY COVID [id number] 04:21:00COVID DMT InterpretationInterpretation/Recommendations: Molecular NAAT Tests for Active Infection with the SARS-CoV-2 Virus: The patient has currently tested negative for the SARS-CoV-2 virus that causes COVID-19 illness. This most likely indicates that the patient does not have an active infectionwith the SARS-CoV-2 virus. However, infection is not completely ruled out as the false negative rate for molecular NAAT testing using a nasopharyngeal sample can be up to 30%, mostly dependent on thetiming of sample collection in relation to illness [...] COVID-19 testing the patient has had at [facility], including molecular NAAT testing (more commonly known as PCR testing and Rapid ID Now testing) and antibody testing. It does not take into account any testing that a patient has had outside of the [facility] medical record. [facility] LABORATORY SERVICESCOVID [id number] Rapid ID NOW (no units) ? ? Date ? Value ? 07/26/2020 ? Not Detected ? ? ? 07/21/2020 ? Not Detected ? ? ? 07/14/2020 ? Not Detected ? [facility] 2020-07-27 02:29:00* Test Item Value Reference Range Interpretation Comme nts POCT GLU (test code = 0743237521) 179 mg/dL 70-110 H Lab Interpretation (test cod e = 18783-2) [facility] RAPID TESTING)2020-07-26 23:15:00* Test Item Value Reference Range Interpretation Comme nts SARS-CoV-2 Rapid ID NOW (test code = 09818-9) Not Detected Not Detected DOMENIC (test code = DOMENIC) ID NOW COVID-19 As say is an isothermal nucleic acid amplification test intended for the qualitative detection of nucleic acid from SARS-CoV-2 viral RNA in nasopharyngeal (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 It is used under Emergency Use [...] patient testing if clinically indicated. Lab Interpretation (test code = 43885-2) Normal [facility] GLUCOSE (AUTOMATED)2020-07-26 23:09:00* Test Item Value Reference Range Interpretation Comme [facility] POCT GLU (test code = 8351239238) 215 mg/dL 70-110 H Lab Interpretation (test cod e = 01194-2) Abnormal [facility] GLUCOSE (AUTOMATED)2020-07-26 19:01:00* Test Item Value Reference Range Interpretation Comme [facility] POCT GLU (test code = 3073350752) 194 mg/dL 70-110 H Lab Interpretation (test cod e = 40379-2) Abnormal [facility] GLUCOSE (AUTOMATED)2020-07-26 15:04:00* Test Item Value Reference Range Interpretation Comme [facility] POCT GLU (test code = 1689992168) 115 mg/dL 70-110 H Lab Interpretation (test cod e = 61113-0) Abnormal [facility] METABOLIC PANEL (NA, K, CL, CO2, GLUCOSE, BUN, CREATININE, CA)2020-07-26 12:22:00* Test Item Value Reference Range Interpretation Comme [facility] NA (test code = 7285332494) 134 mmol/L 135-145 L K (test code = 4177997699) 4.6 mmol/L 3.5-5 CL (test code = 7466844050) 100 mmol/L 98-108 CO2 TOTAL (test code = 0056531276) 25 mmol/L 23-31 AGAP (test code = 1935655914) 2-16 BUN (test code = 7184578295) 20 mg/dL 7-23 GLUCOSE (test code = 2768463933) 110 mg/dL 70-110 CREATININE (test code = 1434639600) 1.57 mg/dL 0.6-1.25 H CALCIUM (test code = 6848480673) 8.6 mg/dL 8.6-10.6 eGFR Calculation (Non-) (test code = 5403281301) mL/min/1.73m2 eGFR Calculation () (test code = 5346305541) mL/min/1.73m2 DOMENIC (test code = DOMENIC) Association of [...] or abnormalities in imaging tests). Lab Interpretation (test code = 77328-0) Abnormal [facility] WITHOUT [id number] 11:49:00* Test Item Value Reference Range Interpretation Comme nts WBC (test code = 6690-2) See_Comment [Automated message] The system which generated this result transmitted reference range: 4.20 - 10.70 10*3/?L. The reference range was not used to interpret this result as normal/abnormal. RBC (test code = 789-8) See_Comment L [Automated message] The system which generated this result transmitted reference range: 4.26 - 5.52 10*6/?L. The reference range was not used to interpret this result as normal/abnormal. HGB (test code = 718-7) 10.5 g/dL 12.2-16.4 L HCT (test code = 4544-3) 31.5 % 38.4-49.3 L MCH (test code = 785-6) 29.8 pg 26.1-32.7 MCV (test code = 787-2) 89.5 fL 81.7-95.6 MCHC (test code = 786-4) 33.3 g/dL 31.2-35 PLT (test code = 777-3) See_Comment H [Automated message] The system which generated this result transmitted reference range: 150 - 328 10*3/?L. The reference range was not used to interpret this result as normal/abnormal. MPV (test code = 12188-5) 8.9 fL 9.8-13 L RDW-CV (test code = 788-0) 12.0 % 12.1-15.4 L RDW-SD (test code = 71954-4) 39.2 fL 38.5-51.6 NRBC x10^3 (test code = 7420075332) <0.01 See_Comment [Automated messa ge] The system which generated this result transmitted reference range: 10*3/?L. The reference range was not used to interpret this result as normal/abnormal. NRBC/100 WBC (test code = 0685345369) See_Comment [Automated [employer]] The system which generated this result transmitted reference range: 0.0 - 10.0 /100 WBCs. The reference range was not used to interpret this result as normal/abnormal. IPF % (test code = 8933313751) Lab Interpretation (test code = 07946-1) Abnormal [facility] GLUCOSE (AUTOMATED)2020-07-26 03:06:00* Test Item Value Reference Range Interpretation Comme nts POCT GLU (test code = 0989024834) 173 mg/dL 70-110 H Lab Interpretation (test cod e = 65096-4) Abnormal [facility] GLUCOSE (AUTOMATED)2020-07-25 23:06:00* Test Item Value Reference Range Interpretation Comme nts POCT GLU (test code = 6774535056) 218 mg/dL 70-110 H Lab Interpretation (test cod e = 45209-8) Abnormal [facility] T[facility] Level - Draw immediately prior to the NEXT dose, but, no more than 60 minutes before the NEXT dose. 2020-07-25 21:22:00* Test Item Value Reference Range Interpretation Comme nts VANCO TROUGH (test code = 1910528553) 11.8 ug/mL 10-20 DOMENIC (test code = DOMENIC) Toxic Range: ?>20 ug/mL 15-20 ug/mL is recommended for severe infection or when Vancomycin MARK ANTHONY is greater than or equal to 2. Lab Interpretation (test code = 09132-0) Normal [facility]2020-07-25 16:23:00* Test Item Value Reference Range Interpretation Comme nts POCT GLU (test code = 4937430800) 133 mg/dL 70-110 H Lab Interpretation (test cod e = 25363-5) [facility] (NA, K, CL, CO2, GLUCOSE, BUN, CREATININE, CA)2020-07-25 12:54:00* Test Item Value Reference Range Interpretation Comme nts NA (test code = 2473486448) 135 mmol/L 135-145 K (test code = 5629620369) 4.3 mmol/L 3.5-5 CL (test code = 0208382391) 99 mmol/L 98-108 CO2 TOTAL (test code = 6838918961) 30 mmol/L 23-31 AGAP (test code = 8771455313) 2-16 BUN (test code = 9353212148) 16 mg/dL 7-23 GLUCOSE (test code = 0785435739) 128 mg/dL 70-110 H CREATININE (test code = 8890429261) 1.63 mg/dL 0.6-1.25 H CALCIUM (test code = 2432354284) 9.1 mg/dL 8.6-10.6 eGFR Calculation (Non-) (test code = 5373041935) mL/min/1.73m2 eGFR Calculation () (test code = 7150552718) mL/min/1.73m2 DOMENIC (test code = DOMENIC) Association of [...] or abnormalities in imaging tests). Lab Interpretation (test code = 79050-1) Abnormal [facility] WITH [id number] 12:33:00* Test Item Value Reference Range Interpretation Comme nts WBC (test code = 6690-2) See_Comment H [Automated [employer]] The system which generated this result transmitted reference range: 4.20 - 10.70 10*3/?L. The reference range was not used to interpret this result as normal/abnormal. RBC (test code = 789-8) See_Comment L [Automated [employer]] The system which generated this result transmitted reference range: 4.26 - 5.52 10*6/?L. The reference range was not used to interpret this result as normal/abnormal. HGB (test code = 718-7) 11.6 g/dL 12.2-16.4 L HCT (test code = 4544-3) 34.6 % 38.4-49.3 L MCV (test code = 787-2) 88.5 fL 81.7-95.6 MCH (test code = 785-6) 29.7 pg 26.1-32.7 MCHC (test code = 786-4) 33.5 g/dL 31.2-35 RDW-SD (test code = 57995-6) 38.8 fL 38.5-51.6 RDW-CV (test code = 788-0) 12.0 % 12.1-15.4 L PLT (test code = 777-3) See_Comment H [Automated messa ge] The system which generated this result transmitted reference range: 150 - 328 10*3/?L. The reference range was not used to interpret this result as normal/abnormal. MPV (test code = 21459-4) 8.7 fL 9.8-13 L NRBC/100 WBC (test code = 6590480035) See_Comment [Automated me ssage] The system which generated this result transmitted reference range: 0.0 - 10.0 /100 WBCs. The reference range was not used to interpret this result as normal/abnormal. NRBC x10^3 (test code = 1050586719) <0.01 See_Comment [Automated messa ge] The system which generated this result transmitted reference range: 10*3/?L. The reference range was not used to interpret this result as normal/abnormal. GRAN MAT (NEUT) % (test code = 770-8) 68.9 % IMM GRAN % (test code = 6856459014) 1.10 % LYMPH % (test code = 736-9) 21.0 % MONO % (test code = 5905-5) 6.5 % EOS % (test code = 713-8) 1.9 % BASO % (test code = 706-2) 0.6 % GRAN MAT x10^3(ANC) (test code = 8094960583) 8.53 10*3/uL 1.99-6.95 H IMM GRAN x10^3 (test code = 8846643522) 0.13 10*3/uL 0-0.06 H LYMPH x10^3 (test code = 731-0) 2.60 10*3/uL 1.09-3.23 MONO x10^3 (test code = 742-7) 0.80 10*3/uL 0.36-1.02 EOS x10^3 (test code = 711-2) 0.23 10*3/uL 0.06-0.53 BASO x10^3 (test code = 704-7) 0.08 10*3/uL 0.01-0.09 Lab Interpretation (test code = 65476-0) Abnormal [facility] GLUCOSE (AUTOMATED)2020-07-25 03:17:00* Test Item Value Reference Range Interpretation Comme nts POCT GLU (test code = 0122225419) 214 mg/dL 70-110 H Lab Interpretation (test cod e = 12896-4) Abnormal [facility] GLUCOSE (AUTOMATED)2020-07-24 23:04:00* Test Item Value Reference Range Interpretation Comme nts POCT GLU (test code = 4334897000) 193 mg/dL 70-110 H Lab Interpretation (test cod e = 67095-3) Abnormal [facility] GLUCOSE (AUTOMATED)2020-07-24 19:02:00* Test Item Value Reference Range Interpretation Comme nts POCT GLU (test code = 6376969862) 146 mg/dL 70-110 H Lab Interpretation (test cod e = 53385-9) Abnormal [facility] GLUCOSE (AUTOMATED)2020-07-24 14:36:00* Test Item Value Reference Range Interpretation Comme nts POCT GLU (test code = 4759743814) 113 mg/dL 70-110 H Lab Interpretation (test cod e = 81544-5) Abnormal [facility] GLUCOSE (AUTOMATED)2020-07-24 09:34:00* Test Item Value Reference Range Interpretation Comme nts POCT GLU (test code = 4966671967) 125 mg/dL 70-110 H Lab Interpretation (test cod e = 51362-1) Abnormal [facility] METABOLIC PANEL (NA, K, CL, CO2, GLUCOSE, BUN, CREATININE, CA)2020-07-24 07:07:00* Test Item Value Reference Range Interpretation Comme nts NA (test code = 4508070872) 131 mmol/L 135-145 L K (test code = 3613502131) 4.1 mmol/L 3.5-5 CL (test code = 1892434504) 99 mmol/L 98-108 CO2 TOTAL (test code = 8015678060) 27 mmol/L 23-31 AGAP (test code = 4423780349) 2-16 BUN (test code = 1705047742) 17 mg/dL 7-23 GLUCOSE (test code = 1917138668) 149 mg/dL 70-110 H CREATININE (test code = 4771158744) 1.56 mg/dL 0.6-1.25 H CALCIUM (test code = 0790744247) 8.5 mg/dL 8.6-10.6 L eGFR Calculation (Non-) (test code = 0216528734) mL/min/1.73m2 eGFR Calculation () (test code = 8863064759) mL/min/1.73m2 DOMENIC (test code = DOMENIC) Association of [...] or abnormalities in imaging tests). Lab Interpretation (test code = 31560-4) [facility]normal [facility] 07:07:00* Test Item Value Reference Range Interpretation Comme [facility] MAGNESIUM (test code = 8166722811) 2.0 mg/dL 1.7-2.4 Lab Interpretation (test cod e = 28718-1) [facility]2020-07-24 06:36:00* Test Item Value Reference Range Interpretation Comme [facility] POCT GLU (test code = 1960857021) 150 mg/dL 70-110 H Lab Interpretation (test cod e = 00158-0) Abnormal [facility] GLUCOSE (AUTOMATED)2020-07-24 03:11:00* Test Item Value Reference Range Interpretation Comme nts POCT GLU (test code = 0817121186) 180 mg/dL 70-110 H Lab Interpretation (test cod e = 38037-3) Abnormal [facility] GLUCOSE (AUTOMATED)2020-07-23 23:34:00* Test Item Value Reference Range Interpretation Comme nts POCT GLU (test code = 5710424677) 218 mg/dL 70-110 H Notified Provide r Lab Interpretation (test code = 08186-0) Abnormal [facility] GLUCOSE (AUTOMATED)2020-07-23 19:55:00* Test Item Value Reference Range Interpretation Comme nts POCT GLU (test code = 0254471916) 198 mg/dL 70-110 H Lab Interpretation (test cod e = 22589-5) Abnormal [facility] GLUCOSE (AUTOMATED)2020-07-23 16:23:00* Test Item Value Reference Range Interpretation Comme nts POCT GLU (test code = 0518185209) 162 mg/dL 70-110 H Lab Interpretation (test cod e = 71896-6) [facility] [id number] 16:01:00* Test Item Value Reference Range Interpretation Comme nts Blood Culture-Aerobic (test code = 81754-4) No organisms isolated No growth Previous preliminary verified result was Culture In Progress on 07/18/2020 at 1301 CSTPrevious preliminary verified result was No growth at 24 hours on 07/19/2020 at 1001 CSTPrevious preliminary verified result was No growth at 48 hours on 07/20/2020 at 1001 CSTPrevious preliminary verified result was No growth at 72 hours on 07/21/2020 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-Anaerobic (test code = 57250-5) No organisms isolated No growth Previous preliminary verified result was Culture In Progress on 07/18/2020 at 1301 CSTPrevious preliminary verified result was No growth at 24 hours on 07/19/2020 at 1001 CSTPrevious preliminary verified result was No growth at 48 hours on 07/20/2020 at 1001 CSTPrevious preliminary verified result was No growth at 72 hours on 07/21/2020 at 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 Lab Interpretation (test code = 48610-8) Normal [facility] Center[facility] [id number] 16:01:00* Test Item Value Reference Range Interpretation Comme nts Blood Culture-Aerobic (test code = 19913-8) No organisms isolated No growth Previous preliminary verified result was Culture In Progress on 07/18/2020 at 1301 CSTPrevious preliminary verified result was No growth at 24 hours on 07/19/2020 at 1001 CSTPrevious preliminary verified result was No growth at 48 hours on 07/20/2020 at 1001 CSTPrevious preliminary verified result was No growth at 72 hours on 07/21/2020 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-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 (test code = 30986-9) No organisms isolated No growth Previous preliminary verified result was Culture In Progress on 07/18/2020 at 1301 CSTPrevious preliminary verified result was No growth at 24 hours on 07/19/2020 at 1001 CSTPrevious preliminary verified result was No growth at 48 hours on 07/20/2020 at 1001 CSTPrevious preliminary verified result was No growth at 72 hours on 07/21/2020 at 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 Lab Interpretation (test code = 03377-4) Normal [facility] CenterVancomycin Random [id number] 12:03:00* Test Item Value Reference Range Interpretation Comme nts VANCO RANDOM (test code = 7948225668) 16.3 ug/mL [facility]OLIC [facility] (NA, K, CL, CO2, GLUCOSE, BUN, CREATININE, CA)2020-07-23 11:58:00* Test Item Value Reference Range Interpretation Comme nts NA (test code = 5726240445) 132 mmol/L 135-145 L K (test code = 7521703711) 4.5 mmol/L 3.5-5 CL (test code = 5778197301) 100 mmol/L 98-108 CO2 TOTAL (test code = 0981971944) 24 mmol/L 23-31 AGAP (test code = 5328013543) 2-16 BUN (test code = 4470710024) 17 mg/dL 7-23 GLUCOSE (test code = 6292533949) 137 mg/dL 70-110 H CREATININE (test code = 8399376325) 1.78 mg/dL 0.6-1.25 H CALCIUM (test code = 1219247085) 8.5 mg/dL 8.6-10.6 L eGFR Calculation (Non-) (test code = 3185214141) mL/min/1.73m2 eGFR Calculation () (test code = 4656772585) mL/min/1.73m2 DOMENIC (test code = DOMENIC) Association of [...] or abnormalities in imaging tests). Lab Interpretation (test code = 91345-6) [facility]normal [facility]2021-[facility]-13 11:58:00* Test Item Value Reference Range Interpretation Comme nts MAGNESIUM (test code = 5521713333) 2.0 mg/dL 1.7-2.4 Lab Interpretation (test cod e = 26737-9) [facility]2020-07-23 10:39:00* Test Item Value Reference Range Interpretation Comme nts POCT GLU (test code = 8992436107) 134 mg/dL 70-110 H Lab Interpretation (test cod e = 14749-4) Abnormal [facility] GLUCOSE (AUTOMATED)2020-07-23 06:03:00* Test Item Value Reference Range Interpretation Comme nts POCT GLU (test code = 7584719532) 163 mg/dL 70-110 H Lab Interpretation (test cod e = 33547-0) Abnormal [facility] GLUCOSE (AUTOMATED)2020-07-23 03:35:00* Test Item Value Reference Range Interpretation Comme nts POCT GLU (test code = 5366164224) 236 mg/dL 70-110 H Lab Interpretation (test cod e = 24927-2) Abnormal [facility] GLUCOSE (AUTOMATED)2020-07-22 23:51:00* Test Item Value Reference Range Interpretation Comme nts POCT GLU (test code = 6758336679) 244 mg/dL 70-110 H Lab Interpretation (test cod e = 83361-1) Abnormal [facility] METABOLIC PANEL (NA, K, CL, CO2, GLUCOSE, BUN, CREATININE, CA)2020-07-22 20:49:00* Test Item Value Reference Range Interpretation Comme nts NA (test code = 7758309058) 132 mmol/L 135-145 L K (test code = 7671271725) 4.0 mmol/L 3.5-5 CL (test code = 0134100361) 98 mmol/L 98-108 CO2 TOTAL (test code = 2425095217) 26 mmol/L 23-31 AGAP (test code = 4934032690) 2-16 BUN (test code = 9200535581) 17 mg/dL 7-23 GLUCOSE (test code = 2317091032) 279 mg/dL 70-110 H CREATININE (test code = 3122448265) 1.89 mg/dL 0.6-1.25 H CALCIUM (test code = 8109513244) 8.6 mg/dL 8.6-10.6 eGFR Calculation (Non-) (test code = 9517838784) mL/min/1.73m2 eGFR Calculation () (test code = 6769447990) mL/min/1.73m2 DOMENIC (test code = DOMENIC) Association of [...] or abnormalities in imaging tests). Lab Interpretation (test code = 92221-3) Abnormal [facility] GLUCOSE (AUTOMATED)2020-07-22 19:08:00* Test Item Value Reference Range Interpretation Comme [facility] POCT GLU (test code = 2621887777) 189 mg/dL 70-110 H Lab Interpretation (test cod e = 89842-1) Abnormal [facility] GLUCOSE (AUTOMATED)2020-07-22 15:05:00* Test Item Value Reference Range Interpretation Comme [facility] POCT GLU (test code = 7391829911) 144 mg/dL 70-110 H Lab Interpretation (test cod e = 29899-4) Abnormal [facility] METABOLIC PANEL (NA, K, CL, CO2, GLUCOSE, BUN, CREATININE, CA)2020-07-22 12:20:00* Test Item Value Reference Range Interpretation Comme nts NA (test code = 3124538885) 132 mmol/L 135-145 L K (test code = 4909646408) 3.7 mmol/L 3.5-5 CL (test code = 0411458956) 100 mmol/L 98-108 CO2 TOTAL (test code = 9009248069) 23 mmol/L 23-31 AGAP (test code = 6949906847) 2-16 BUN (test code = 3540291482) 17 mg/dL 7-23 GLUCOSE (test code = 1158538966) 145 mg/dL 70-110 H CREATININE (test code = 3500061242) 1.88 mg/dL 0.6-1.25 H CALCIUM (test code = 0747381183) 8.2 mg/dL 8.6-10.6 L eGFR Calculation (Non-) (test code = 0473509190) mL/min/1.73m2 eGFR Calculation () (test code = 5158731382) mL/min/1.73m2 DOMENIC (test code = DOMENIC) Association of [...] or abnormalities in imaging tests). Lab Interpretation (test code = 68371-7) [facility]normal [facility] 12:20:00* Test Item Value Reference Range Interpretation Comme nts MAGNESIUM (test code = 0007797258) 2.0 mg/dL 1.7-2.4 Lab Interpretation (test cod e = 57337-9) Normal [facility] CenterCBC WITHOUT [id number] 12:09:00* Test Item Value Reference Range Interpretation Comme nts WBC (test code = 6690-2) See_Comment H [Automated message] The system which generated this result transmitted reference range: 4.20 - 10.70 10*3/?L. The reference range was not used to interpret this result as normal/abnormal. RBC (test code = 789-8) See_Comment L [Automated message] The system which generated this result transmitted reference range: 4.26 - 5.52 10*6/?L. The reference range was not used to interpret this result as normal/abnormal. HGB (test code = 718-7) 8.8 g/dL 12.2-16.4 L HCT (test code = 4544-3) 26.6 % 38.4-49.3 L MCH (test code = 785-6) 29.7 pg 26.1-32.7 MCV (test code = 787-2) 89.9 fL 81.7-95.6 MCHC (test code = 786-4) 33.1 g/dL 31.2-35 PLT (test code = 777-3) See_Comment H [Automated message] The system which generated this result transmitted reference range: 150 - 328 10*3/?L. The reference range was not used to interpret this result as normal/abnormal. MPV (test code = 01217-5) 9.1 fL 9.8-13 L RDW-CV (test code = 788-0) 12.2 % 12.1-15.4 RDW-SD (test code = 11539-1) 39.8 fL 38.5-51.6 NRBC x10^3 (test code = 5046673385) <0.01 See_Comment [Automated messa ge] The system which generated this result transmitted reference range: 10*3/?L. The reference range was not used to interpret this result as normal/abnormal. NRBC/100 WBC (test code = 2790697204) See_Comment [Automated messa ge] The system which generated this result transmitted reference range: 0.0 - 10.0 /100 WBCs. The reference range was not used to interpret this result as normal/abnormal. IPF % (test code = 4785713185) Lab Interpretation (test code = 12168-4) Abnormal [facility] GLUCOSE (AUTOMATED)2020-07-22 11:50:00* Test Item Value Reference Range Interpretation Comme nts POCT GLU (test code = 9217019179) 127 mg/dL 70-110 H Lab Interpretation (test cod e = 23796-6) Abnormal [facility] GLUCOSE (AUTOMATED)2020-07-22 10:17:00* Test Item Value Reference Range Interpretation Comme nts POCT GLU (test code = 0804118210) 138 mg/dL 70-110 H Lab Interpretation (test cod e = 77423-4) Abnormal [facility] GLUCOSE (AUTOMATED)2020-07-22 08:50:00* Test Item Value Reference Range Interpretation Comme nts POCT GLU (test code = 0574059530) 157 mg/dL 70-110 H Lab Interpretation (test cod e = 39233-8) Abnormal [facility] GLUCOSE (AUTOMATED)2020-07-22 06:30:00* Test Item Value Reference Range Interpretation Comme nts POCT GLU (test code = 4189527232) 182 mg/dL 70-110 H Lab Interpretation (test cod e = 15831-7) Abnormal [facility] GLUCOSE (AUTOMATED)2020-07-22 04:37:00* Test Item Value Reference Range Interpretation Comme nts POCT GLU (test code = 8206063420) 226 mg/dL 70-110 H Lab Interpretation (test cod e = 98223-9) [facility]normal [facility] CenterSODIUM, URINE [id number] 01:16:00* Test Item Value Reference Range Interpretation Comme nts NA URINE (test code = 5140690294) 120 mmol/L [facility] CenterCREATININE, URINE [id number] 01:16:00* Test Item Value Reference Range Interpretation Comme nts CREAT U (test code = 5864302093) 64.1 mg/dL [facility]2020-07-22 00:01:00* Test Item Value Reference Range Interpretation Comme nts POCT GLU (test code = 7324008587) 184 mg/dL 70-110 H Lab Interpretation (test cod e = 46997-7) [facility]normal [facility] CenterLAB ONLY COVID [id number] 23:21:00COVID DMT InterpretationInterpretation/Recommendations: Molecular NAAT Tests for Active Infection with the SARS-CoV-2 Virus: This patient has tested negative on two occasions for the SARS-CoV-2 virusthat causes COVID-19 illness. This most likely indicates [...] of symptoms). Tests for IgM and/or IgG Antibodiesto SARS-CoV-2 Virus: Testing for IgM and IgG antibodies 1-3 weeks after illness onset will indicate whether the patient has produced antibodies to the virus. At this time, it is not known if the production of antibodies - specifically IgG antibodies - indicates whether the patient is immune to future infections with the SARS-CoV-2 virus. Interpretation Result Comments:These interpretation comments are based upon all COVID-19 testing the patient has had at [facility], including molecular NAAT testing (more commonly known as PCRtesting and Rapid ID Now testing) and antibody testing. It does not take into account any testing that a patient has had outside of the [facility] medical record. [facility] LABORATORY SERVICESCOVID ResultsSARS-C oV-2 Rapid ID NOW (no units) ? ? Date ? Value ? 07/21/2020 ? Not Detected ? ? ? 07/14/2020 ? Not Detected ? [facility] Vancom[facility] Trough Level - Draw immediately prior to the 1030 dose on 07/21/20 due to increasing [id number] 22:54:00* Test Item Value Reference Range Interpretation Comme nts VANCO TROUGH (test code = 7829068523) 19.5 ug/mL 10-20 DOMENIC (test code = DOMENIC) Toxic Range: ?>20 ug/mL 15-20 ug/mL is recommended for severe infection or when Vancomycin MARK ANTHONY is greater than or equal to 2. Lab Interpretation (test code = 89660-1) Normal [facility] GLUCOSE (AUTOMATED)2020-07-21 20:54:00* Test Item Value Reference Range Interpretation Comme nts POCT GLU (test code = 6599953502) 163 mg/dL 70-110 H Lab Interpretation (test cod e = 72670-6) Abnormal [facility] GLUCOSE (AUTOMATED)2020-07-21 18:10:00* Test Item Value Reference Range Interpretation Comme nts POCT GLU (test code = 4816647011) 156 mg/dL 70-110 H Lab Interpretation (test cod e = 72916-3) [facility] RAPID TESTING)2020-07-21 16:49:00* Test Item Value Reference Range Interpretation Comme nts SARS-CoV-2 Rapid ID NOW (test code = 43377-5) Not Detected Not Detected DOMENIC (test code = DOMENIC) ID NOW COVID-19 As say is an isothermal nucleic acid amplification test intended for the qualitative detection of nucleic acid from SARS-CoV-2 viral RNA in nasopharyngeal (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 It is used under Emergency Use [...] patient testing if clinically indicated. Lab Interpretation (test code = 79016-1) [facility]2020-07-21 13:58:00* Test Item Value Reference Range Interpretation Comme nts POCT GLU (test code = 9411601058) 136 mg/dL 70-110 H Lab Interpretation (test cod e = 41000-6) Abnormal [facility] METABOLIC PANEL (NA, K, CL, CO2, GLUCOSE, BUN, CREATININE, CA)2020-07-21 10:30:00* Test Item Value Reference Range Interpretation Comme nts NA (test code = 4121322460) 133 mmol/L 135-145 L K (test code = 5017044900) 3.8 mmol/L 3.5-5 CL (test code = 4712608045) 99 mmol/L 98-108 CO2 TOTAL (test code = 6102895104) 24 mmol/L 23-31 AGAP (test code = 8343279994) 2-16 BUN (test code = 8413729360) 17 mg/dL 7-23 GLUCOSE (test code = 8976429758) 243 mg/dL 70-110 H CREATININE (test code = 4338336192) 1.87 mg/dL 0.6-1.25 H CALCIUM (test code = 4164928574) 8.1 mg/dL 8.6-10.6 L eGFR Calculation (Non-) (test code = 2376452881) mL/min/1.73m2 eGFR Calculation () (test code = 1497414320) mL/min/1.73m2 DOMENIC (test code = DOMENIC) Association of [...] or abnormalities in imaging tests). Lab Interpretation (test code = 76703-2) [facility] 10:30:00* Test Item Value Reference Range Interpretation Comme nts MAGNESIUM (test code = 5977954708) 1.9 mg/dL 1.7-2.4 Lab Interpretation (test cod e = 50618-9) Normal [facility] WITH [id number] 10:22:00* Test Item Value Reference Range Interpretation Comme nts WBC (test code = 6690-2) See_Comment H [Automated message] The system which generated this result transmitted reference range: 4.20 - 10.70 10*3/?L. The reference range was not used to interpret this result as normal/abnormal. RBC (test code = 789-8) See_Comment L [Automated message] The system which generated this result transmitted reference range: 4.26 - 5.52 10*6/?L. The reference range was not used to interpret this result as normal/abnormal. HGB (test code = 718-7) 9.1 g/dL 12.2-16.4 L HCT (test code = 4544-3) 26.8 % 38.4-49.3 L MCV (test code = 787-2) 89.6 fL 81.7-95.6 MCH (test code = 785-6) 30.4 pg 26.1-32.7 MCHC (test code = 786-4) 34.0 g/dL 31.2-35 RDW-SD (test code = 24833-2) 39.1 fL 38.5-51.6 RDW-CV (test code = 788-0) 12.1 % 12.1-15.4 PLT (test code = 777-3) See_Comment H [Automated message] The system which generated this result transmitted reference range: 150 - 328 10*3/?L. The reference range was not used to interpret this result as normal/abnormal. MPV (test code = 13858-9) 9.6 fL 9.8-13 L NRBC/100 WBC (test code = 0060285482) See_Comment [Automated message] The system which generated this result transmitted reference range: 0.0 - 10.0 /100 WBCs. The reference range was not used to interpret this result as normal/abnormal. NRBC x10^3 (test code = 2833145683) <0.01 See_Comment [Automated message] The system which generated this result transmitted reference range: 10*3/?L. The reference range was not used to interpret this result as normal/abnormal. GRAN MAT (NEUT) % (test code = 770-8) 81.0 % IMM GRAN % (test code = 9184946460) 1.00 % LYMPH % (test code = 736-9) 9.8 % MONO % (test code = 5905-5) 7.1 % EOS % (test code = 713-8) 0.8 % BASO % (test code = 706-2) 0.3 % GRAN MAT x10^3(ANC) (test code = 2614318989) 11.43 10*3/uL 1.99-6.95 H IMM GRAN x10^3 (test code = 9490144361) 0.14 10*3/uL 0-0.06 H LYMPH x10^3 (test code = 731-0) 1.38 10*3/uL 1.09-3.23 MONO x10^3 (test code = 742-7) 1.00 10*3/uL 0.36-1.02 EOS x10^3 (test code = 711-2) 0.11 10*3/uL 0.06-0.53 BASO x10^3 (test code = 704-7) 0.04 10*3/uL 0.01-0.09 Lab Interpretation (test code = 08556-6) Abnormal [facility] GLUCOSE (AUTOMATED)2020-07-21 09:31:00* Test Item Value Reference Range Interpretation Comme nts POCT GLU (test code = 7886605903) 433 mg/dL 70-110 H Lab Interpretation (test cod e = 45166-0) Abnormal [facility] GLUCOSE (AUTOMATED)2020-07-21 09:31:00* Test Item Value Reference Range Interpretation Comme nts POCT GLU (test code = 2405767505) 176 mg/dL 70-110 H Lab Interpretation (test cod e = 19758-9) [facility] Level - Draw immediately prior to the 4TH dose, but, no more than 60 minutes before the 4TH dose. 2020-07-21 04:19:00* Test Item Value Reference Range Interpretation Comme nts VANCO TROUGH (test code = 1608529471) 22.5 ug/mL 10-20 H DOMENIC (test code = DOMENIC) Toxic Range: ?>20 ug/mL 15-20 ug/mL is recommended for severe infection or when Vancomycin MARK ANTHONY is greater than or equal to 2. Lab Interpretation (test code = 65158-3) Abnormal [facility] GLUCOSE (AUTOMATED)2020-07-21 03:26:00* Test Item Value Reference Range Interpretation Comme nts POCT GLU (test code = 9870892626) 206 mg/dL 70-110 H Lab Interpretation (test cod e = 70503-0) Abnormal [facility] GLUCOSE (AUTOMATED)2020-07-20 23:40:00* Test Item Value Reference Range Interpretation Comme nts POCT GLU (test code = 1887932748) 201 mg/dL 70-110 H Lab Interpretation (test cod e = 34816-4) Abnormal [facility] GLUCOSE (AUTOMATED)2020-07-20 18:44:00* Test Item Value Reference Range Interpretation Comme [facility] POCT GLU (test code = 9646432485) 178 mg/dL 70-110 H Lab Interpretation (test cod e = 30481-9) Abnormal [facility] GLUCOSE (AUTOMATED)2020-07-20 15:02:00* Test Item Value Reference Range Interpretation Comme [facility] POCT GLU (test code = 9935410048) 151 mg/dL 70-110 H Lab Interpretation (test cod e = 44461-9) Abnormal [facility] METABOLIC PANEL (NA, K, CL, CO2, GLUCOSE, BUN, CREATININE, CA)2020-07-20 11:40:00* Test Item Value Reference Range Interpretation Comme [facility] NA (test code = 2412145671) 131 mmol/L 135-145 L K (test code = 8967307439) 3.9 mmol/L 3.5-5 CL (test code = 7474613015) 96 mmol/L 98-108 L CO2 TOTAL (test code = 8721255968) 24 mmol/L 23-31 AGAP (test code = 7325839022) 2-16 BUN (test code = 0647520443) 14 mg/dL 7-23 GLUCOSE (test code = 5231265923) 157 mg/dL 70-110 H CREATININE (test code = 5502414493) 1.12 mg/dL 0.6-1.25 CALCIUM (test code = 6681518432) 8.6 mg/dL 8.6-10.6 eGFR Calculation (Non-) (test code = 8173833997) mL/min/1.73m2 eGFR Calculation () (test code = 0076631278) mL/min/1.73m2 DOMENIC (test code = DOMENIC) Association of [...] or abnormalities in imaging tests). Lab Interpretation (test code = 65530-8) [facility] 11:40:00* Test Item Value Reference Range Interpretation Comme nts MAGNESIUM (test code = 9121183709) 2.0 mg/dL 1.7-2.4 Lab Interpretation (test cod e = 39030-7) Normal [facility] WITH [id number] 11:12:00* Test Item Value Reference Range Interpretation Comme nts WBC (test code = 6690-2) See_Comment H [Automated message] The system which generated this result transmitted reference range: 4.20 - 10.70 10*3/?L. The reference range was not used to interpret this result as normal/abnormal. RBC (test code = 789-8) See_Comment L [Automated message] The system which generated this result transmitted reference range: 4.26 - 5.52 10*6/?L. The reference range was not used to interpret this result as normal/abnormal. HGB (test code = 718-7) 10.1 g/dL 12.2-16.4 L HCT (test code = 4544-3) 29.7 % 38.4-49.3 L MCV (test code = 787-2) 89.5 fL 81.7-95.6 MCH (test code = 785-6) 30.4 pg 26.1-32.7 MCHC (test code = 786-4) 34.0 g/dL 31.2-35 RDW-SD (test code = 42564-1) 38.9 fL 38.5-51.6 RDW-CV (test code = 788-0) 12.0 % 12.1-15.4 L PLT (test code = 777-3) See_Comment H [Automated message] The system which generated this result transmitted reference range: 150 - 328 10*3/?L. The reference range was not used to interpret this result as normal/abnormal. MPV (test code = 43100-9) 9.4 fL 9.8-13 L NRBC/100 WBC (test code = 6798501882) See_Comment [Automated message] The system which generated this result transmitted reference range: 0.0 - 10.0 /100 WBCs. The reference range was not used to interpret this result as normal/abnormal. NRBC x10^3 (test code = 9686064366) <0.01 See_Comment [Automated message] The system which generated this result transmitted reference range: 10*3/?L. The reference range was not used to interpret this result as normal/abnormal. GRAN MAT (NEUT) % (test code = 770-8) 78.1 % IMM GRAN % (test code = 4404773971) 0.90 % LYMPH % (test code = 736-9) 12.7 % MONO % (test code = 5905-5) 6.9 % EOS % (test code = 713-8) 1.1 % BASO % (test code = 706-2) 0.3 % GRAN MAT x10^3(ANC) (test code = 4935020559) 13.11 10*3/uL 1.99-6.95 H IMM GRAN x10^3 (test code = 3487351174) 0.15 10*3/uL 0-0.06 H LYMPH x10^3 (test code = 731-0) 2.14 10*3/uL 1.09-3.23 MONO x10^3 (test code = 742-7) 1.16 10*3/uL 0.36-1.02 H EOS x10^3 (test code = 711-2) 0.19 10*3/uL 0.06-0.53 BASO x10^3 (test code = 704-7) 0.05 10*3/uL 0.01-0.09 Lab Interpretation (test code = 62666-6) Abnormal [facility] GLUCOSE (AUTOMATED)2020-07-20 10:55:00* Test Item Value Reference Range Interpretation Comme nts POCT GLU (test code = 8026398258) 146 mg/dL 70-110 H Lab Interpretation (test cod e = 17769-1) Abnormal [facility] GLUCOSE (AUTOMATED)2020-07-20 05:23:00* Test Item Value Reference Range Interpretation Comme nts POCT GLU (test code = 4625570204) 232 mg/dL 70-110 H Lab Interpretation (test cod e = 57715-8) Abnormal [facility] GLUCOSE (AUTOMATED)2020-07-20 02:37:00* Test Item Value Reference Range Interpretation Comme nts POCT GLU (test code = 4054374012) 284 mg/dL 70-110 H Lab Interpretation (test cod e = 21874-2) Abnormal [facility] GLUCOSE (AUTOMATED)2020-07-20 01:12:00* Test Item Value Reference Range Interpretation Comme nts POCT GLU (test code = 4372366570) 199 mg/dL 70-110 H Lab Interpretation (test cod e = 76039-4) Abnormal [facility] GLUCOSE (AUTOMATED)2020-07-20 00:59:00* Test Item Value Reference Range Interpretation Comme nts POCT GLU (test code = 9107066856) 209 mg/dL 70-110 H Lab Interpretation (test cod e = 98515-9) [facility] Trough Level - Draw immediately prior to the 4TH dose, but, no more than 60 minutes before the 4TH dose. 2020-07-19 22:54:00* Test Item Value Reference Range Interpretation Comme nts VANCO TROUGH (test code = 9240149458) 18.5 ug/mL 10-20 DOMENIC (test code = DOMENIC) Toxic Range: ?>20 ug/mL 15-20 ug/mL is recommended for severe infection or when Vancomycin MARK ANTHONY is greater than or equal to 2. Lab Interpretation (test code = 04901-9) Normal [facility] GLUCOSE (AUTOMATED)2020-07-19 20:07:00* Test Item Value Reference Range Interpretation Comme nts POCT GLU (test code = 9125571355) 159 mg/dL 70-110 H Lab Interpretation (test cod e = 48050-1) Abnormal [facility] CULTURE [id number] 19:01:00* Test Item Value Reference Range Interpretation Comme nts Blood Culture-Aerobic (test code = 22328-2) No organisms isolated No growth Previous preliminary verified result was Culture In Progress on 07/14/2020 at 1601 CSTPrevious preliminary verified result was No growth at 24 hours on 07/15/2020 at 1301 CSTPrevious preliminary verified result was No growth at 48 hours on 07/16/2020 at 1301 CSTPrevious preliminary verified result was No growth at 72 hours on 07/17/2020 at 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 Blood Culture-Anaerobic (test code = 25030-6) No organisms isolated No growth Previous preliminary verified result was Culture In Progress on 07/14/2020 at 1601 CSTPrevious preliminary verified result was No growth at 24 hours on 07/15/2020 at 1301 CSTPrevious preliminary verified result was No growth at 48 hours on 07/16/2020 at 1301 CSTPrevious preliminary verified result was No growth at 72 hours on 07/17/2020 at 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 Lab Interpretation (test code = 81284-8) Normal [facility] GLUCOSE (AUTOMATED)2020-07-19 18:18:00* Test Item Value Reference Range Interpretation Comme nts POCT GLU (test code = 5259955671) 149 mg/dL 70-110 H Lab Interpretation (test cod e = 80370-6) Abnormal [facility] CULTURE [id number] 17:02:00* Test Item Value Reference Range Interpretation Comme nts Blood Culture-Aerobic (test code = 04278-6) No organisms isolated No growth Previous preliminary verified result was Culture In Progress on 07/14/2020 at 1401 CSTPrevious preliminary verified result was No growth at 24 hours on 07/15/2020 at 1101 CSTPrevious preliminary verified result was No growth at 48 hours on 07/16/2020 at 1101 CSTPrevious preliminary verified result was No growth at 72 hours on 07/17/2020 at 1101 PROPERTY INSURANCE INSPECTOR Blood Culture-Anaerobic (test code = 10193-8) No organisms isolated No growth Previous preliminary verified result was Culture In Progress on 07/14/2020 at 1401 CSTPrevious preliminary verified result was No growth at 24 hours on 07/15/2020 at 1101 CSTPrevious preliminary verified result was No growth at 48 hours on 07/16/2020 at 1101 CSTPrevious preliminary verified result was No growth at 72 hours on 07/17/2020 at 1101 PROPERTY INSURANCE INSPECTOR Lab Interpretation (test code = 72546-1) [facility]2020-07-19 14:35:00* Test Item Value Reference Range Interpretation Comme [facility] POCT GLU (test code = 2490844470) 136 mg/dL 70-110 H Lab Interpretation (test cod e = 38919-5) Abnormal [facility] METABOLIC PANEL (NA, K, CL, CO2, GLUCOSE, BUN, CREATININE, CA)2020-07-19 12:51:00* Test Item Value Reference Range Interpretation Comme [facility] NA (test code = 1707919345) 135 mmol/L 135-145 K (test code = 9796239060) 3.6 mmol/L 3.5-5 CL (test code = 7973893991) 101 mmol/L 98-108 CO2 TOTAL (test code = 5088752398) 24 mmol/L 23-31 AGAP (test code = 6564999564) 2-16 BUN (test code = 5577491230) 11 mg/dL 7-23 GLUCOSE (test code = 9417877954) 163 mg/dL 70-110 H CREATININE (test code = 1079058306) 0.77 mg/dL 0.6-1.25 CALCIUM (test code = 0746645156) 8.4 mg/dL 8.6-10.6 L eGFR Calculation (Non-) (test code = 1425841509) mL/min/1.73m2 eGFR Calculation () (test code = 9407003162) mL/min/1.73m2 DOMENIC (test code = DOMENIC) Association of [...] or abnormalities in imaging tests). Lab Interpretation (test code = 32591-3) [facility] 12:51:00* Test Item Value Reference Range Interpretation Comme nts MAGNESIUM (test code = 1717327165) 2.0 mg/dL 1.7-2.4 Lab Interpretation (test cod e = 21340-7) Normal [facility] WITH [id number] 12:48:00* Test Item Value Reference Range Interpretation Comme nts WBC (test code = 6690-2) See_Comment H [Automated [employer]] The system which generated this result transmitted reference range: 4.20 - 10.70 10*3/?L. The reference range was not used to interpret this result as normal/abnormal. RBC (test code = 789-8) See_Comment L [Automated [employer]] The system which generated this result transmitted reference range: 4.26 - 5.52 10*6/?L. The reference range was not used to interpret this result as normal/abnormal. HGB (test code = 718-7) 9.4 g/dL 12.2-16.4 L HCT (test code = 4544-3) 27.5 % 38.4-49.3 L MCV (test code = 787-2) 87.9 fL 81.7-95.6 MCH (test code = 785-6) 30.0 pg 26.1-32.7 MCHC (test code = 786-4) 34.2 g/dL 31.2-35 RDW-SD (test code = 90651-5) 39.0 fL 38.5-51.6 RDW-CV (test code = 788-0) 12.0 % 12.1-15.4 L PLT (test code = 777-3) See_Comment H [Automated messa ge] The system which generated this result transmitted reference range: 150 - 328 10*3/?L. The reference range was not used to interpret this result as normal/abnormal. MPV (test code = 67875-8) 9.8 fL 9.8-13 NRBC/100 WBC (test code = 3723275066) See_Comment [Automated [employer]] The system which generated this result transmitted reference range: 0.0 - 10.0 /100 WBCs. The reference range was not used to interpret this result as normal/abnormal. NRBC x10^3 (test code = 9092364727) <0.01 See_Comment [Automated messa ge] The system which generated this result transmitted reference range: 10*3/?L. The reference range was not used to interpret this result as normal/abnormal. GRAN MAT (NEUT) % (test code = 770-8) 76.8 % IMM GRAN % (test code = 6171386971) 0.80 % LYMPH % (test code = 736-9) 13.2 % MONO % (test code = 5905-5) 7.5 % EOS % (test code = 713-8) 1.4 % BASO % (test code = 706-2) 0.3 % GRAN MAT x10^3(ANC) (test code = 4128397401) 8.74 10*3/uL 1.99-6.95 H IMM GRAN x10^3 (test code = 3574283667) 0.09 10*3/uL 0-0.06 H LYMPH x10^3 (test code = 731-0) 1.50 10*3/uL 1.09-3.23 MONO x10^3 (test code = 742-7) 0.85 10*3/uL 0.36-1.02 EOS x10^3 (test code = 711-2) 0.16 10*3/uL 0.06-0.53 BASO x10^3 (test code = 704-7) 0.03 10*3/uL 0.01-0.09 Lab Interpretation (test code = 06250-9) Abnormal [facility] GLUCOSE (AUTOMATED)2020-07-19 11:23:00* Test Item Value Reference Range Interpretation Comme nts POCT GLU (test code = 9383460770) 166 mg/dL 70-110 H Lab Interpretation (test cod e = 48618-6) Abnormal [facility] GLUCOSE (AUTOMATED)2020-07-19 07:56:00* Test Item Value Reference Range Interpretation Comme nts POCT GLU (test code = 6868654763) 170 mg/dL 70-110 H Lab Interpretation (test cod e = 77706-1) Abnormal [facility] GLUCOSE (AUTOMATED)2020-07-19 03:12:00* Test Item Value Reference Range Interpretation Comme nts POCT GLU (test code = 7127247360) 226 mg/dL 70-110 H Lab Interpretation (test cod e = 99764-9) Abnormal [facility] GLUCOSE (AUTOMATED)2020-07-18 23:02:00* Test Item Value Reference Range Interpretation Comme nts POCT GLU (test code = 6777739210) 217 mg/dL 70-110 H Lab Interpretation (test cod e = 96580-0) Abnormal [facility] GLUCOSE (AUTOMATED)2020-07-18 18:44:00* Test Item Value Reference Range Interpretation Comme nts POCT GLU (test code = 7633428293) 189 mg/dL 70-110 H Notified Provide r Lab Interpretation (test code = 60560-1) [facility] Trough Level - Draw immediately prior to the 4TH dose, but, no more than 60 minutes before the 4TH dose. 2020-07-18 18:14:00* Test Item Value Reference Range Interpretation Comme nts VANCO TROUGH (test code = 9867804508) 12.3 ug/mL 10-20 DOMENIC (test code = DOMENIC) Toxic Range: ?>20 ug/mL 15-20 ug/mL is recommended for severe infection or when Vancomycin MARK ANTHONY is greater than or equal to 2. 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 In accordance with CLSI M100 guidelines, susceptibility testing of penicillin and other beta-lactams need not be performed due to the extremely rare nature of non-susceptible isolates. [facility]2020-07-18 14:15:00* Test Item Value Reference Range Interpretation Comme nts POCT GLU (test code = 0005422187) 174 mg/dL 70-110 H Notified Provide r Lab Interpretation (test code = 08953-8) [facility] (NA, K, CL, CO2, GLUCOSE, BUN, CREATININE, CA)2020-07-18 11:13:00* Test Item Value Reference Range Interpretation Comme nts NA (test code = 2016878618) 134 mmol/L 135-145 L K (test code = 7579447249) 3.8 mmol/L 3.5-5 CL (test code = 1230679389) 102 mmol/L 98-108 CO2 TOTAL (test code = 6980238062) 26 mmol/L 23-31 AGAP (test code = 8331648990) 2-16 BUN (test code = 1845888337) 9 mg/dL 7-23 GLUCOSE (test code = 8295716610) 191 mg/dL 70-110 H CREATININE (test code = 3278691159) 0.71 mg/dL 0.6-1.25 CALCIUM (test code = 5028291279) 8.0 mg/dL 8.6-10.6 L eGFR Calculation (Non-) (test code = 0054219200) mL/min/1.73m2 eGFR Calculation () (test code = 6398217679) mL/min/1.73m2 DOMENIC (test code = DOMENIC) Association of [...] or abnormalities in imaging tests). Lab Interpretation (test code = 58276-4) [facility] 11:13:00* Test Item Value Reference Range Interpretation Comme nts MAGNESIUM (test code = 5114149057) 2.0 mg/dL 1.7-2.4 Lab Interpretation (test cod e = 61368-5) Normal [facility] WITH [id number] 10:44:00* Test Item Value Reference Range Interpretation Comme nts WBC (test code = 6690-2) See_Comment H [Automated message] The system which generated this result transmitted reference range: 4.20 - 10.70 10*3/?L. The reference range was not used to interpret this result as normal/abnormal. RBC (test code = 789-8) See_Comment L [Automated message] The system which generated this result transmitted reference range: 4.26 - 5.52 10*6/?L. The reference range was not used to interpret this result as normal/abnormal. HGB (test code = 718-7) 9.8 g/dL 12.2-16.4 L HCT (test code = 4544-3) 29.1 % 38.4-49.3 L MCV (test code = 787-2) 88.2 fL 81.7-95.6 MCH (test code = 785-6) 29.7 pg 26.1-32.7 MCHC (test code = 786-4) 33.7 g/dL 31.2-35 RDW-SD (test code = 49923-1) 38.4 fL 38.5-51.6 L RDW-CV (test code = 788-0) 11.9 % 12.1-15.4 L PLT (test code = 777-3) See_Comment H [Automated message] The system which generated this result transmitted reference range: 150 - 328 10*3/?L. The reference range was not used to interpret this result as normal/abnormal. MPV (test code = 04637-1) 9.5 fL 9.8-13 L NRBC/100 WBC (test code = 9923917444) See_Comment [Automated message] The system which generated this result transmitted reference range: 0.0 - 10.0 /100 WBCs. The reference range was not used to interpret this result as normal/abnormal. NRBC x10^3 (test code = 4556437856) <0.01 See_Comment [Automated message] The system which generated this result transmitted reference range: 10*3/?L. The reference range was not used to interpret this result as normal/abnormal. GRAN MAT (NEUT) % (test code = 770-8) 83.1 % IMM GRAN % (test code = 5040015021) 0.80 % LYMPH % (test code = 736-9) 9.0 % MONO % (test code = 5905-5) 6.1 % EOS % (test code = 713-8) 0.7 % BASO % (test code = 706-2) 0.3 % GRAN MAT x10^3(ANC) (test code = 9493087565) 13.14 10*3/uL 1.99-6.95 H IMM GRAN x10^3 (test code = 8745788876) 0.13 10*3/uL 0-0.06 H LYMPH x10^3 (test code = 731-0) 1.43 10*3/uL 1.09-3.23 MONO x10^3 (test code = 742-7) 0.97 10*3/uL 0.36-1.02 EOS x10^3 (test code = 711-2) 0.11 10*3/uL 0.06-0.53 BASO x10^3 (test code = 704-7) 0.04 10*3/uL 0.01-0.09 Lab Interpretation (test code = 71867-5) Abnormal [facility] GLUCOSE (AUTOMATED)2020-07-18 10:30:00* Test Item Value Reference Range Interpretation Comme nts POCT GLU (test code = 9532803929) 188 mg/dL 70-110 H Lab Interpretation (test cod e = 96274-9) Abnormal [facility] GLUCOSE (AUTOMATED)2020-07-18 06:02:00* Test Item Value Reference Range Interpretation Comme nts POCT GLU (test code = 4056411502) 199 mg/dL 70-110 H Lab Interpretation (test cod e = 53334-1) Abnormal [facility] GLUCOSE (AUTOMATED)2020-07-18 01:49:00* Test Item Value Reference Range Interpretation Comme nts POCT GLU (test code = 9888495528) 222 mg/dL 70-110 H Lab Interpretation (test cod e = 90313-7) Abnormal [facility] GLUCOSE (AUTOMATED)2020-07-17 22:59:00* Test Item Value Reference Range Interpretation Comme nts POCT GLU (test code = 3457786039) 229 mg/dL 70-110 H Lab Interpretation (test cod e = 45484-6) Abnormal [facility] GLUCOSE (AUTOMATED)2020-07-17 21:42:00* Test Item Value Reference Range Interpretation Comme nts POCT GLU (test code = 7020828983) 218 mg/dL 70-110 H Lab Interpretation (test cod e = 08766-6) Abnormal [facility] GLUCOSE (AUTOMATED)2020-07-17 18:11:00* Test Item Value Reference Range Interpretation Comme nts POCT GLU (test code = 0111840975) 164 mg/dL 70-110 H Lab Interpretation (test cod e = 99914-6) Abnormal [facility] GLUCOSE (AUTOMATED)2020-07-17 13:22:00* Test Item Value Reference Range Interpretation Comme nts POCT GLU (test code = 3782674383) 125 mg/dL 70-110 H Lab Interpretation (test cod e = 84719-3) Abnormal [facility] METABOLIC PANEL (NA, K, CL, CO2, GLUCOSE, BUN, CREATININE, CA)2020-07-17 12:08:00* Test Item Value Reference Range Interpretation Comme nts NA (test code = 2194308772) 132 mmol/L 135-145 L K (test code = 3427467317) 3.8 mmol/L 3.5-5 CL (test code = 9178764128) 101 mmol/L 98-108 CO2 TOTAL (test code = 4338408387) 24 mmol/L 23-31 AGAP (test code = 4123612160) 2-16 BUN (test code = 6791945109) 11 mg/dL 7-23 GLUCOSE (test code = 5544209242) 145 mg/dL 70-110 H CREATININE (test code = 1212508084) 0.76 mg/dL 0.6-1.25 CALCIUM (test code = 2755997779) 8.2 mg/dL 8.6-10.6 L eGFR Calculation (Non-) (test code = 1543598441) mL/min/1.73m2 eGFR Calculation () (test code = 6642736320) mL/min/1.73m2 DOMENIC (test code = DOMENIC) Association of [...] or abnormalities in imaging tests). Lab Interpretation (test code = 27089-5) [facility] 12:08:[facility]* Test Item Value Reference Range Interpretation Comme nts MAGNESIUM (test code = 9449245067) 2.0 mg/dL 1.7-2.4 Lab Interpretation (test cod e = 18725-1) Normal [facility] WITH [id number] 11:49:00* Test Item Value Reference Range Interpretation Comme nts WBC (test code = 6690-2) See_Comment H [Automated message] The system which generated this result transmitted reference range: 4.20 - 10.70 10*3/?L. The reference range was not used to interpret this result as normal/abnormal. RBC (test code = 789-8) See_Comment L [Automated message] The system which generated this result transmitted reference range: 4.26 - 5.52 10*6/?L. The reference range was not used to interpret this result as normal/abnormal. HGB (test code = 718-7) 9.7 g/dL 12.2-16.4 L HCT (test code = 4544-3) 28.4 % 38.4-49.3 L MCV (test code = 787-2) 89.0 fL 81.7-95.6 MCH (test code = 785-6) 30.4 pg 26.1-32.7 MCHC (test code = 786-4) 34.2 g/dL 31.2-35 RDW-SD (test code = 52688-6) 38.4 fL 38.5-51.6 L RDW-CV (test code = 788-0) 11.9 % 12.1-15.4 L PLT (test code = 777-3) See_Comment H [Automated message] The system which generated this result transmitted reference range: 150 - 328 10*3/?L. The reference range was not used to interpret this result as normal/abnormal. MPV (test code = 77793-4) 9.9 fL 9.8-13 NRBC/100 WBC (test code = 3099814835) See_Comment [Automated message] The system which generated this result transmitted reference range: 0.0 - 10.0 /100 WBCs. The reference range was not used to interpret this result as normal/abnormal. NRBC x10^3 (test code = 2907556772) <0.01 See_Comment [Automated message] The system which generated this result transmitted reference range: 10*3/?L. The reference range was not used to interpret this result as normal/abnormal. GRAN MAT (NEUT) % (test code = 770-8) 83.0 % IMM GRAN % (test code = 5732631026) 0.80 % LYMPH % (test code = 736-9) 10.4 % MONO % (test code = 5905-5) 5.3 % EOS % (test code = 713-8) 0.3 % BASO % (test code = 706-2) 0.2 % GRAN MAT x10^3(ANC) (test code = 4618346910) 14.22 10*3/uL 1.99-6.95 H IMM GRAN x10^3 (test code = 7398189923) 0.14 10*3/uL 0-0.06 H LYMPH x10^3 (test code = 731-0) 1.78 10*3/uL 1.09-3.23 MONO x10^3 (test code = 742-7) 0.91 10*3/uL 0.36-1.02 EOS x10^3 (test code = 711-2) 0.06 10*3/uL 0.06-0.53 BASO x10^3 (test code = 704-7) 0.04 10*3/uL 0.01-0.09 Lab Interpretation (test code = 98349-6) Abnormal [facility] GLUCOSE (AUTOMATED)2020-07-17 10:20:00* Test Item Value Reference Range Interpretation Comme nts POCT GLU (test code = 9365695879) 131 mg/dL 70-110 H Lab Interpretation (test cod e = 31644-9) Abnormal [facility] GLUCOSE (AUTOMATED)2020-07-17 06:05:00* Test Item Value Reference Range Interpretation Comme nts POCT GLU (test code = 5840361281) 157 mg/dL 70-110 H Lab Interpretation (test cod e = 51324-6) Abnormal [facility] GLUCOSE (AUTOMATED)2020-07-17 02:20:00* Test Item Value Reference Range Interpretation Comme nts POCT GLU (test code = 1421359608) 208 mg/dL 70-110 H Lab Interpretation (test cod e = 47594-9) Abnormal [facility] GLUCOSE (AUTOMATED)2020-07-16 22:55:00* Test Item Value Reference Range Interpretation Comme nts POCT GLU (test code = 9809498890) 221 mg/dL 70-110 H Lab Interpretation (test cod e = 01842-3) [facility] COVID [id number] 21:27:00COVID DMT InterpretationInterpretation/Recommendations: Molecular NAAT Tests for Active Infection with the SARS-CoV-2 Virus: This result indicates that the patient has tested negative on one occasionfor the SARS-CoV-2 virus that causes COVID-19 illness. [...] has symptoms concerning for COVID-19 illness, a re peat NAAT test (PCR, Rapid ID Now, etc.) [...] whether the patient has produced antibodies to thevirus. At this time, it is not known if the production of antibodies - specifically IgG antibodies - indicates whether the patient is immune to future infections with the SARS-CoV-2 virus. ? ?-------- Interpretation Result Comments:These interpretation comments are based upon all COVID-19 testing the patient has had at [facility], including molecular NAAT testing (more commonly known as PCR testing and Rapid ID Now testing) and antibody testing. It does not take into account any testing that a patient has had outside of the [facility] medical record. [facility] LABORATORY SERVICESCOVID RixrpcbENNB-DkM-8 Rapid ID NOW (no units) ? ? Date ? Value ? 07/14/2020 ? Not Detected ? [facility]ORAT[facility] SERVICESUnEl [facility]o [facility] HospitalVancomycin Trough Level - Draw within 30 minutes prior to 4TH dose.2020-07-16 21:20:00* Test Item Value Reference Range Interpretation Comme nts VANCO TROUGH (test code = 8421685649) 8.2 ug/mL 10-20 L DOMENIC (test code = DOMENIC) Toxic Range: ?>20 ug/mL 15-20 ug/mL is recommended for severe infection or when Vancomycin MARK ANTHONY is greater than or equal to 2. Lab Interpretation (test code = 13729-1) Abnormal [facility] GLUCOSE (AUTOMATED)2020-07-16 18:59:00* Test Item Value Reference Range Interpretation Comme nts POCT GLU (test code = 4074247509) 217 mg/dL 70-110 H Lab Interpretation (test cod e = 31870-0) Abnormal [facility] GLUCOSE (AUTOMATED)2020-07-16 15:15:00* Test Item Value Reference Range Interpretation Comme nts POCT GLU (test code = 0238426387) 125 mg/dL 70-110 H Lab Interpretation (test cod e = 81371-4) Abnormal [facility] WITH [id number] 11:41:00* Test Item Value Reference Range Interpretation Comme nts WBC (test code = 6690-2) See_Comment H [Automated message] The system which generated this result transmitted reference range: 4.20 - 10.70 10*3/?L. The reference range was not used to interpret this result as normal/abnormal. RBC (test code = 789-8) See_Comment L [Automated message] The system which generated this result transmitted reference range: 4.26 - 5.52 10*6/?L. The reference range was not used to interpret this result as normal/abnormal. HGB (test code = 718-7) 10.2 g/dL 12.2-16.4 L HCT (test code = 4544-3) 30.3 % 38.4-49.3 L MCV (test code = 787-2) 89.1 fL 81.7-95.6 MCH (test code = 785-6) 30.0 pg 26.1-32.7 MCHC (test code = 786-4) 33.7 g/dL 31.2-35 RDW-SD (test code = 21182-8) 39.3 fL 38.5-51.6 RDW-CV (test code = 788-0) 12.1 % 12.1-15.4 PLT (test code = 777-3) See_Comment H [Automated message] The system which generated this result transmitted reference range: 150 - 328 10*3/?L. The reference range was not used to interpret this result as normal/abnormal. MPV (test code = 19328-3) 9.7 fL 9.8-13 L NRBC/100 WBC (test code = 4498031041) See_Comment [Automated message] The system which generated this result transmitted reference range: 0.0 - 10.0 /100 WBCs. The reference range was not used to interpret this result as normal/abnormal. NRBC x10^3 (test code = 0767953207) <0.01 See_Comment [Automated message] The system which generated this result transmitted reference range: 10*3/?L. The reference range was not used to interpret this result as normal/abnormal. GRAN MAT (NEUT) % (test code = 770-8) 82.1 % IMM GRAN % (test code = 0427057060) 0.60 % LYMPH % (test code = 736-9) 10.8 % MONO % (test code = 5905-5) 6.1 % EOS % (test code = 713-8) 0.2 % BASO % (test code = 706-2) 0.2 % GRAN MAT x10^3(ANC) (test code = 8778165359) 15.69 10*3/uL 1.99-6.95 H IMM GRAN x10^3 (test code = 8768099447) 0.11 10*3/uL 0-0.06 H LYMPH x10^3 (test code = 731-0) 2.07 10*3/uL 1.09-3.23 MONO x10^3 (test code = 742-7) 1.17 10*3/uL 0.36-1.02 H EOS x10^3 (test code = 711-2) 0.04 10*3/uL 0.06-0.53 L BASO x10^3 (test code = 704-7) 0.04 10*3/uL 0.01-0.09 BANDS (test code = 5535079537) Increased A Lab Interpretation (test code = 37582-7) Abnormal [facility] METABOLIC PANEL (NA, K, CL, CO2, GLUCOSE, BUN, CREATININE, CA)2020-07-16 11:41:00* Test Item Value Reference Range Interpretation Comme nts NA (test code = 7669134920) 131 mmol/L 135-145 L K (test code = 3047197440) 4.0 mmol/L 3.5-5 CL (test code = 1158817165) 99 mmol/L 98-108 CO2 TOTAL (test code = 0877935473) 22 mmol/L 23-31 L AGAP (test code = 6572767773) 2-16 BUN (test code = 4265352681) 14 mg/dL 7-23 GLUCOSE (test code = 3116491677) 147 mg/dL 70-110 H CREATININE (test code = 3749086522) 0.81 mg/dL 0.6-1.25 CALCIUM (test code = 8794083472) 8.5 mg/dL 8.6-10.6 L eGFR Calculation (Non-) (test code = 5746498080) mL/min/1.73m2 eGFR Calculation () (test code = 6878863099) mL/min/1.73m2 DOMENIC (test code = DOMENIC) Association of [...] or abnormalities in imaging tests). Lab Interpretation (test code = 84181-7) [facility] 11:41:00* Test Item Value Reference Range Interpretation Comme nts MAGNESIUM (test code = 2332573924) 2.1 mg/dL 1.7-2.4 Lab Interpretation (test cod e = 39522-6) Normal [facility] GLUCOSE (AUTOMATED)2020-07-16 10:04:00* Test Item Value Reference Range Interpretation Comme nts POCT GLU (test code = 9544626739) 140 mg/dL 70-110 H Lab Interpretation (test cod e = 36998-7) Abnormal [facility] GLUCOSE (AUTOMATED)2020-07-16 06:29:00* Test Item Value Reference Range Interpretation Comme nts POCT GLU (test code = 1177325136) 178 mg/dL 70-110 H Lab Interpretation (test cod e = 09451-7) Abnormal [facility] GLUCOSE (AUTOMATED)2020-07-16 02:13:00* Test Item Value Reference Range Interpretation Comme nts POCT GLU (test code = 7225892019) 214 mg/dL 70-110 H Lab Interpretation (test cod e = 40268-5) Abnormal [facility] GLUCOSE (AUTOMATED)2020-07-15 23:47:00* Test Item Value Reference Range Interpretation Comme nts POCT GLU (test code = 8566978118) 161 mg/dL 70-110 H Lab Interpretation (test cod e = 22394-8) Abnormal [facility] GLUCOSE (AUTOMATED)2020-07-15 19:55:00* Test Item Value Reference Range Interpretation Comme nts POCT GLU (test code = 4650527481) 138 mg/dL 70-110 H Lab Interpretation (test cod e = 72267-2) [facility]normal [facility] CenterC-REACTIVE [id number] 18:59:00* Test Item Value Reference Range Interpretation Comme nts CRP (test code = 9163848309) 35.7 mg/dL <0.8 H Lab Interpretation (test cod e = 88843-5) Abnormal [facility] GLUCOSE (AUTOMATED)2020-07-15 18:10:00* Test Item Value Reference Range Interpretation Comme nts POCT GLU (test code = 1461749566) 156 mg/dL 70-110 H Lab Interpretation (test cod e = 74824-3) [facility]normal [facility] CenterXR FOOT 3+ VW [id number] 16:47:541. ?No fracture or foreign body. There is extensive soft tissue gaspredominantly in the plantar forefoot. RL: 1105 HISTORY: ?left foot puncture wound Left foot puncture wound COMPARISON: ?None FINDINGS: 3 views left foot and ankle. There is extensive soft tissue gas. The gas predominantly in the plantarsurface of the foot. No fracture orforeign body seen. [facility], Radiant Results [facility] User - 07/15/2020 10:49 AM CSTHISTORY: left foot puncture wound Left foot puncture woundCOMPARISON: NoneFINDINGS:3 views left foot and ankle.There is extensive soft tissue gas. The gas predominantly in the plantarsurface of the foot. No fracture or foreign body seen.IMPRESSION1. No fracture or foreign body. There is extensive soft tissue gaspredominantly in the plantar forefoot.RL: 1105 [facility]+ VW [id number] 16:47:541. ?No fracture or foreign body. There is extensive soft tissue gaspredominantly in the plantar forefoot. RL: 1105 HISTORY: ?left foot puncture wound Left foot puncture wound COMPARISON: ?None FINDINGS: 3 views left foot and ankle. There is extensive soft tissue gas. The gas predominantly in the plantarsurface of the foot. No fracture orforeign body seen. [facility] 10:49 AM CSTHISTORY: left foot puncture wound Left foot puncture woundCOMPARISON: NoneFINDINGS:3 views left foot and ankle.There is extensive soft tissue gas. The gas predominantly in the plantarsurface of the foot. No fracture or foreign body seen.IMPRESSION1. No fracture or foreign body. There is extensive soft tissue gaspredominantly in the plantar forefoot.RL: 1105 [facility] HospitalCT TIBIA FIBULA LEFT W [id number] 16:02:25Moderate to severe secondary osteoarthrosis of the knee. Large volume knee effusion with synovial thickening, an underlyingcrystalline/inflammatory arthropathy may be present and should becorrelated clinically. An indolent infectious process is an alternativeconsideration. No evidence of osteomyelitis or soft tissue gas extension in the lower leg. Preliminary Report Dictated by Resident: Deepa huerta I, Brandan Chua MD., have reviewed this study and agree with the abovereport.Exam: CT TIBIA FIBULA LEFT W CONTRAST HISTORY: concern for nec fasc vs cellulitis COMPARISON: None TECHNIQUE: AxialCT imaging through the left tibia and fibula was performedwithout IV contrast. Coronal and sagittalreformats were obtained andreviewed. Separate 3-D reconstructions are submitted for evaluation. FINDINGS: There is moderate to severe tricompartmental joint space narrowing,marginal osteophytosis andsubchondral sclerosis of knee joint;kica-sy-mtma contact at the medial compartment is seen with genu varusdeformity. Corticated osseous bodies are seen over the anteromedial andanterolateral joint line. Hypertrophy of the tibial spines is present alongwith a Garcia knob. Scattered subcentimeter bone islands are seen at theposterior lateral femoral condyle. There is large volume joint effusionwith extensive synovial hypertrophy. A loculated component of the effusionis seen over the anteromedialjoint line. Scattered vascular calcifications are present more pronounced in the smallvessels of the foot. Posterior calcaneal enthesophyte is seen. Skinthickening with mild subcutaneous edema is noted around the ankle morediscernible in the posterolateral surface. No evidence of focal bonedestruction/osteopenia, periosteal reaction. [facility], Radiant Results [facility] User - 07/15/2020 10:03 AM CSTExam: CT TIBIA FIBULA LEFT W CONTRASTHISTORY: concern for nec fasc vs cellulitisCOMPARISON: NoneTECHNIQUE:Axial CT imaging through the left tibia and fibula was performedwithout IV contrast. Coronal and sagittal reformats were obtained andreviewed. Separate 3-D reconstructions are submitted for evaluation.FINDINGS:There is moderate to severe tricompartmental joint space narrowing,marginal osteophytosisand subchondral sclerosis of knee joint;dvpd-qt-mfad contact at the medial compartment is seen withgenu varusdeformity. Corticated osseous bodies are seen over [...] are present more pronounced in the smallvessels ofthe foot. Posterior calcaneal enthesophyte is seen. Skinthickening with mild subcutaneous edema is noted around the ankle morediscernible in the posterolateral surface. No evidence of focal bonedestru ction/osteopenia, periosteal reaction. IMPRESSIONModerate to severe secondary osteoarthrosis of theknee. Large volume knee effusion with synovial thickening, an underlyingcrystalline/inflammatory arthropathy may be present and should becorrelated clinically. An indolent infectious process is an alt ernativeconsideration.No evidence of osteomyelitis or soft tissue gas extension in the lower leg.Preliminary Report Dictated by Resident: Brandan Lawson MD., have reviewed this study and agree with the abovereport.[facility] CenterCT FO[facility] LEFT W [id number] 15:56:03Plantar skin defect with extensive soft tissue gas extending into the deepplantar fascial planes which may relate to extension of gas through theplantar forefoot skin defect and/or superimposed gas-forming infection. Findings of the report were telephonically conveyed to Dr. Dickerson withread back at 9:05 AM (07/15/2020). Preliminary Report Dictated by Resident: Brandan Kenney MD., [facility] reviewed this study and agree with the [...] narrowing andsubchondral sclerosis at the intertarsal joints. [facility], Radiant Results [facility] User - 07/15/2020 9:57 [...] joint level. Soft tissue gas extends into theplantarforefoot musculature with interdigitation of gas through the firstintermetatarsal space withgas tracking more proximally within the secondmetatarsal extensor tendon to the level of the midfoot. There ishyperdense collection measuring 2.1 cm below the third and the fourth MTPjoint may represe nt hypertrophic scar or adventitial bursa formation. Thereis extensive soft tissue stranding, skin thickening at the plantar footextending up to the mid ankle. No bone destruction or periosteal reactionseen. No acute fracture or dislocation. Mild joint space narrowing andsubchondral sclerosis at the intertarsal joints.IMPRESSIONPlantar skin defect with extensive soft tissue gas extending into thedeepplantar fascial planes which may relate to extension of gas through theplantar forefoot skin defect and/or superimposed gas-forming infection.Findings of the report were telephonically conveyed to Dr. Dickerson withread back at 9:05 AM (07/15/2020).Preliminary Report Dictated by Resident: Deepa Shetty, Brandan Chua MD., have reviewed this study and agree with the abovereport.[facility] CenterBAS[facility] METABOLIC PANEL (NA, K, CL, CO2, GLUCOSE, BUN, CREATININE, CA)2020-07-15 14:52:00* Test Item Value Reference Range Interpretation Comme nts NA (test code = 8965769733) 131 mmol/L 135-145 L K (test code = 8225398381) 4.1 mmol/L 3.5-5 CL (test code = 9756066953) 98 mmol/L 98-108 CO2 TOTAL (test code = 7016232055) 20 mmol/L 23-31 L AGAP (test code = 7489259904) 2-16 BUN (test code = 9887440690) 14 mg/dL 7-23 GLUCOSE (test code = 1924372750) 172 mg/dL 70-110 H CREATININE (test code = 5863367566) 0.82 mg/dL 0.6-1.25 CALCIUM (test code = 3222737046) 8.9 mg/dL 8.6-10.6 eGFR Calculation (Non-) (test code = 1194790363) mL/min/1.73m2 eGFR Calculation () (test code = 3398299775) mL/min/1.73m2 DOMENIC (test code = DOMENIC) Association of [...] or abnormalities in imaging tests). Lab Interpretation (test code = 40112-4) [facility]20[facility] 14:52:00* Test Item Value Reference Range Interpretation Comme nts MAGNESIUM (test code = 9477334940) 2.2 mg/dL 1.7-2.4 Lab Interpretation (test cod e = 15386-4) Normal [facility] CenterLipid Panel (Total Cholesterol, Triglycerides, HDL) - [id number] 14:52:00* Test Item Value Reference Range Interpretation Comme nts CHOL (test code = 6739367937) 153 mg/dL 120-200 HDL (test code = 2906859914) 14 mg/dL >40 L HDLC RATIO (test code = 8614332227) See_Comment H [Automated [employer]] The system which generated this result transmitted reference range: <=5.0. The reference range was not used to interpret this result as normal/abnormal. TRIG (test code = 4687700499) 140 mg/dL 30-170 LDL CHOL (test code = 88808-5) 111 mg/dL See_Comment [Automated [employer]] The system which generated this result transmitted reference range: <=160. The reference range was not used to interpret this result as normal/abnormal. VLDL (test code = 6441119593) 28 mg/dL 5-60 Lab Interpretation (test code = 86364-7) [facility] CenterPO[facility] ([facility]ATED)2020-07-15 14:26:00* Test Item Value Reference Range Interpretation Comme nts POCT GLU (test code = 4727688174) 171 mg/dL 70-110 H Lab Interpretation (test cod e = 85591-3) [facility]normal [facility] CenterCBC WITH [id number] 11:51:00* Test Item Value Reference Range Interpretation Comme nts WBC (test code = 6690-2) See_Comment H [Automated message] The system which generated this result transmitted reference range: 4.20 - 10.70 10*3/?L. The reference range was not used to interpret this result as normal/abnormal. RBC (test code = 789-8) See_Comment L [Automated message] The system which generated this result transmitted reference range: 4.26 - 5.52 10*6/?L. The reference range was not used to interpret this result as normal/abnormal. HGB (test code = 718-7) 11.6 g/dL 12.2-16.4 L HCT (test code = 4544-3) 34.3 % 38.4-49.3 L MCV (test code = 787-2) 88.6 fL 81.7-95.6 MCH (test code = 785-6) 30.0 pg 26.1-32.7 MCHC (test code = 786-4) 33.8 g/dL 31.2-35 RDW-SD (test code = 32074-1) 38.3 fL 38.5-51.6 L RDW-CV (test code = 788-0) 11.8 % 12.1-15.4 L PLT (test code = 777-3) See_Comment H [Automated message] The system which generated this result transmitted reference range: 150 - 328 10*3/?L. The reference range was not used to interpret this result as normal/abnormal. MPV (test code = 28925-5) 10.4 fL 9.8-13 NRBC/100 WBC (test code = 4425482124) See_Comment [Automated message] The system which generated this result transmitted reference range: 0.0 - 10.0 /100 WBCs. The reference range was not used to interpret this result as normal/abnormal. NRBC x10^3 (test code = 6874637095) <0.01 See_Comment [Automated message] The system which generated this result transmitted reference range: 10*3/?L. The reference range was not used to interpret this result as normal/abnormal. GRAN MAT (NEUT) % (test code = 770-8) 79.7 % IMM GRAN % (test code = 0959335377) 0.60 % LYMPH % (test code = 736-9) 12.1 % MONO % (test code = 5905-5) 6.9 % EOS % (test code = 713-8) 0.4 % BASO % (test code = 706-2) 0.3 % GRAN MAT x10^3(ANC) (test code = 9323015823) 11.56 10*3/uL 1.99-6.95 H IMM GRAN x10^3 (test code = 4028225931) 0.08 10*3/uL 0-0.06 H LYMPH x10^3 (test code = 731-0) 1.76 10*3/uL 1.09-3.23 MONO x10^3 (test code = 742-7) 1.00 10*3/uL 0.36-1.02 EOS x10^3 (test code = 711-2) 0.06 10*3/uL 0.06-0.53 BASO x10^3 (test code = 704-7) 0.04 10*3/uL 0.01-0.09 Lab Interpretation (test code = 77914-1) Abnormal [facility] GLUCOSE (AUTOMATED)2020-07-15 10:33:00* Test Item Value Reference Range Interpretation Comme nts POCT GLU (test code = 2646412386) 163 mg/dL 70-110 H Lab Interpretation (test cod e = 39545-2) Abnormal [facility] GLUCOSE (AUTOMATED)2020-07-15 06:34:00* Test Item Value Reference Range Interpretation Comme nts POCT GLU (test code = 4057099570) 257 mg/dL 70-110 H Lab Interpretation (test cod e = 57621-0) Abnormal [facility] GLUCOSE (AUTOMATED)2020-07-15 02:51:00* Test Item Value Reference Range Interpretation Comme nts POCT GLU (test code = 6425933338) 305 mg/dL 70-110 H Lab Interpretation (test cod e = 13296-0) [id number] 02:15:00* Test Item Value Reference Range Interpretation Comme nts ESR (test code = 1580807799) See_Comment H [Automated messa ge] The system which generated this result transmitted reference range: 0 - 10 mm/HR. The reference range was not used to interpret this result as normal/abnormal. Lab Interpretation (test code = 51817-2) [facility] (A1C)2020-07-15 00:52:00* Test Item Value Reference Range Interpretation Comme [facility] HGB A1C (test code = 4548-4) 13.2 % 4-6 H DOMENIC (test code = DOMENIC) %A1C (NGSP) Interpretation (ADA)4.8-5.6 ? ? Normal or (Non-Diabetic Range)5.7-6.4 ? ? Increased Risk (Pre-Diabetic)>6.5 ?Diabetes Indicated Lab Interpretation (test code = 05200-1) [facility]2020-07-14 23:45:00* Test Item Value Reference Range Interpretation Comme [facility] POCT GLU (test code = 5115303017) 190 mg/dL 70-110 H Lab Interpretation (test cod e = 41089-8) [facility] NOW RAPID TESTING)2020-07-14 16:54:00* Test Item Value Reference Range Interpretation Comme [facility] SARS-CoV-2 Rapid ID NOW (test code = 00558-8) Not Detected Not Detected DOMENIC (test code = DOMENIC) ID NOW COVID-19 As say is an isothermal nucleic acid amplification test intended for the qualitative detection of nucleic acid from SARS-CoV-2 viral RNA in nasopharyngeal (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 It is used under Emergency Use [...] patient testing if clinically indicated. Lab Interpretation (test code = 40632-1) Normal [facility] METABOLIC PANEL (NA, K, CL, CO2, GLUCOSE, BUN, CREATININE, CA)2020-07-14 16:53:00* Test Item Value Reference Range Interpretation Comme nts NA (test code = 1553334498) 131 mmol/L 135-145 L K (test code = 4609546719) 4.4 mmol/L 3.5-5 CL (test code = 3899513529) 96 mmol/L 98-108 L CO2 TOTAL (test code = 3213672101) 21 mmol/L 23-31 L AGAP (test code = 8562112553) 2-16 BUN (test code = 8569494585) 16 mg/dL 7-23 GLUCOSE (test code = 1239680592) 252 mg/dL 70-110 H CREATININE (test code = 1949365230) 0.91 mg/dL 0.6-1.25 CALCIUM (test code = 2851570570) 9.0 mg/dL 8.6-10.6 eGFR Calculation (Non-) (test code = 8113662866) mL/min/1.73m2 eGFR Calculation () (test code = 7201031104) mL/min/1.73m2 DOMENIC (test code = DOMENIC) Association of [...] or abnormalities in imaging tests). Lab Interpretation (test code = 23747-2) Abnormal [facility] WITH [id number] 16:42:00* Test Item Value Reference Range Interpretation Comme nts WBC (test code = 6690-2) See_Comment H [Automated message] The system which generated this result transmitted reference range: 4.20 - 10.70 10*3/?L. The reference range was not used to interpret this result as normal/abnormal. RBC (test code = 789-8) See_Comment L [Automated message] The system which generated this result transmitted reference range: 4.26 - 5.52 10*6/?L. The reference range was not used to interpret this result as normal/abnormal. HGB (test code = 718-7) 11.8 g/dL 12.2-16.4 L HCT (test code = 4544-3) 34.2 % 38.4-49.3 L MCV (test code = 787-2) 88.6 fL 81.7-95.6 MCH (test code = 785-6) 30.6 pg 26.1-32.7 MCHC (test code = 786-4) 34.5 g/dL 31.2-35 RDW-SD (test code = 08410-5) 37.9 fL 38.5-51.6 L RDW-CV (test code = 788-0) 11.8 % 12.1-15.4 L PLT (test code = 777-3) See_Comment H [Automated message] The system which generated this result transmitted reference range: 150 - 328 10*3/?L. The reference range was not used to interpret this result as normal/abnormal. MPV (test code = 73189-3) 9.9 fL 9.8-13 NRBC/100 WBC (test code = 5796900514) See_Comment [Automated message] The system which generated this result transmitted reference range: 0.0 - 10.0 /100 WBCs. The reference range was not used to interpret this result as normal/abnormal. NRBC x10^3 (test code = 8256729648) <0.01 See_Comment [Automated message] The system which generated this result transmitted reference range: 10*3/?L. The reference range was not used to interpret this result as normal/abnormal. GRAN MAT (NEUT) % (test code = 770-8) 82.4 % IMM GRAN % (test code = 0318654202) 0.90 % LYMPH % (test code = 736-9) 10.6 % MONO % (test code = 5905-5) 5.7 % EOS % (test code = 713-8) 0.2 % BASO % (test code = 706-2) 0.2 % GRAN MAT x10^3(ANC) (test code = 5596812078) 13.88 10*3/uL 1.99-6.95 H IMM GRAN x10^3 (test code = 6997774684) 0.16 10*3/uL 0-0.06 H LYMPH x10^3 (test code = 731-0) 1.79 10*3/uL 1.09-3.23 MONO x10^3 (test code = 742-7) 0.96 10*3/uL 0.36-1.02 EOS x10^3 (test code = 711-2) 0.03 10*3/uL 0.06-0.53 L BASO x10^3 (test code = 704-7) 0.04 10*3/uL 0.01-0.09 Lab Interpretation (test code = 58363-1) [facility]normal [facility] Center[facility] Whole [id number] 16:32:00* Test Item Value Reference Range Interpretation Comme nts LACTIC ACID (test code = 6771967911) 1.76 mmol/L 0.5-2.2 Lab Interpretation (test cod e = 91010-1) Normal [facility]"
--- NOTE | 2024-07-29 22:10 | RAD REPORT ---
EXAMINATION: US RIGHT LOWER EXTREMITY VENOUS DOPPLER CLINICAL INDICATION: PAIN RIGHT TECHNIQUE: Complete bilateral duplex sonography of the RIGHT lower extremity veins was performed. The examination included compression for vein patency, color Doppler imaging and flow augmentation in response to distal compression of the distal external iliac, common femoral, femoral, popliteal, tibi al, and great and small saphenous veins. COMPARISON: 05/25/2024 FINDINGS: Duplex sonography testing of the veins of the RIGHT lower extremity was performed. There is again not ed to be thrombus present in the right femoral vein mid and distal aspect. It appears grossly similar to the 05/25/2024 study. Elsewhere, DVT not seen. IMPRESSION: Thrombus in the mid and distal right femoral vein is grossly similar to comparison study, likely chronic. Elsewhere no DVT seen.
[2024-07-29] MEDS ORDERED: ONDANSETRON 4 MG/2 ML VIAL ONE (22:59)
[2024-07-29] MEDS ORDERED: NA CHLORIDE 0.9% 0 ML ONE (22:59)
[2024-07-29] MEDS ORDERED: VANCOMYCIN 1 GM/VIAL ONE (22:59)
[2024-07-29] MEDS ORDERED: PIPERACIL/TAZO 3.375 GM VIAL IV ONE (23:00)
[2024-07-29] MEDS ORDERED: NA CHLORIDE 0.9% 1,000 ML ONE (23:00)
[2024-07-29] MEDS ORDERED: NA CHLORIDE 0.9% 100 ML ONE (23:00)
[2024-07-29 23:02] LABS: Absolute Basophils 0.1 K/uL (0-0.5); Absolute Eosinophils 0.2 K/uL (0-0.5); Absolute Lymphocytes (CBC) 1.7 K/uL (0.7-4.9); Absolute Monocytes 0.6 K/uL (0.1-1.3); Absolute Neutrophil 5.2 K/uL (1.8-8.0); Basophils % 0.8 % (0-1.3); Eosinophils % 2.3 % (0-4.4); Hematocrit 31.6 % (39.6-49.0); Hemoglobin 10.7 g/dL (13.6-17.9); Lymphocytes % 21.5 % (15.3-44.8); MCH 30.2 pg (27.0-35.0); MCHC 33.8 g/dL (32.0-36.0); MCV 89.3 fL (80-100); MPV 7.8 fL (7.6-11.3); Monocytes % 7.4 % (3.3-12.3); Platelets 371 thou/uL (152-406); RBC Red Blood Cell Count 3.54 M/uL (4.33-5.43); Red Cell Distribution Width 13.1 % (12.1-15.2)
[2024-07-29 23:05] LABS: Specific Gravity 1.025 (1.005-1.030); Sqamous Epithelial <5 /HPF (None Seen); Urine Bacteria None Seen /HPF (<20); Urine Bilirubin NEGATIVE (Negative); Urine Blood Trace (Negative); Urine Clarity Clear (Clear); Urine Color Yellow (Yellow); Urine Culture Reflex Order NOT NEEDED; Urine Glucose 3+ (Negative); Urine Ketones NEGATIVE (Negative); Urine Microscopic Reflex YN ORDER UMIC; Urine Mucus 1+ /HPF (None Seen); Urine Nitrite NEGATIVE (Negative); Urine Protein 1+ (Negative); Urine Urobilinogen Normal (Normal); Urine WBC <5 /HPF (<5); Urine WBC Clump Rare /HPF (None Seen)
[2024-07-29] MEDS ORDERED: NA CHLORIDE 0.9% 500 ML ONE (23:12)
[2024-07-29 23:20] LABS: Albumin 2.7 g/dL (3.4-5.0); Albumin/Globulin Ratio 0.6 (1.1-1.8); Anion Gap 7.1 mEq/L (5.0-15.0); Bilirubin Total 0.4 mg/dL (0.2-1.0); Globulin 4.6 g/dL (2.3-3.5); Potassium 4.1 mEq/L (3.5-5.1); Protein, Total 7.3 g/dL (6.4-8.2)
--- NOTE | 2024-07-30 00:12 | P.HP ---
Certification for Inpatient Patient admitted to: Inpatient With expected LOS: >2 Midnights Practitioner: I am a practitioner with admitting privileges, knowledge of patient current condition, hospital course, and medical plan of care. Services: Services provided to patient in accordance with Admission requirements found in Title 42 Section 412.3 of the Code of Federal Regulations Patient History Date of Service: 07/30/24 Reason for admission: diabetic foot ulcer History of Present Illness: 48-year-old male with history of diabetes, diabetic foot ulcer presents to the ER with complaints of progressive right foot ulcer and redness. History of previous foot infection. History of toe amputation. He has a PICC line in his right arm. He has been dealing with foot ulcer with surgery. Patient reports symptoms have progressed. Despite receiving antibiotics. He is being admitted for surgical evaluation and IV antibiotics. It is noted that he had a thrombus in the mid and distal right femoral vein. ROS: Denies fever, chills, cough, nausea, vomiting, diarrhea. Reports that his blood sugars typically run in the mid to high 100s and states that his foot pain is mild ultrasound right lower extremity Thrombus in the mid and distal right femoral vein is grossly similar to comparison study, likely chronic. Elsewhere no DVT seen. Allergies No Known Drug Allergies Allergy (Verified 06/23/24 02:14) Unknown Home Medications: Metformin HCl [Metformin ER Osmotic] 1,000 mg PO BID 02/06/17 Insulin Glargine,Hum.rec.anlog [Lantus] 35 units SQ BEDTIME 09/05/20 Atorvastatin Calcium 40 mg PO DAILY 10/24/21 Dapagliflozin Propanediol [Farxiga] 10 mg PO DAILY 10/24/21 Metoprolol Succinate 25 mg PO DAILY 02/04/24 Semaglutide [Ozempic] 2 mg SQ EVERY 7TH DAY 02/04/24 - Past Medical/Surgical History Diabetic: Yes -: IDDM -: Neuropathy -: Hypertension -: Hypertension -: Right great toe partial-amputation -: Right knee replacement -: Excisional subQ debridement necrotic wound left thigh -: L foot surgery Psychosocial/ Personal History: Patient is . - Family History Mother -: Hypertension, Diabetes Father -: Diabetes - Social History Alcohol use: No CD- Drugs: No Caffeine use: No Review of Systems 10-point ROS is otherwise unremarkable Physical Examination - Physical Exam General: Alert, Oriented x3 HEENT: Atraumatic, Normocephalic Respiratory: Clear to auscultation bilaterally, Normal air movement Cardiovascular: Regular rate/rhythm, Normal S1 S2 Gastrointestinal: Soft and benign, Non-distended Musculoskeletal: Other Integumentary: Other (right foot covered in dressing, ulcer covered, redness in distal right leg) Neurological: Normal speech - Studies Laboratory Data (last 24 hrs) 07/29/24 07/29/24 22:45 22:45 WBC 7.70 Hgb 10.7 L Hct 31.6 L Plt Count 371 Sodium 135 L Potassium 4.1 BUN 22 H Creatinine 1.20 Glucose 159 H Total Bilirubin 0.4 AST 16 ALT 31 Alkaline Phosphatase 111 Lipase 23 Assessment and Plan - Problems (Diagnosis) (1) Diabetes Current Visit: No Status: Acute (2) Foot infection Current Visit: No Status: Acute - Plan Diabetic foot ulcer Cellulitis DVT Diabetes Hypertension Plan: 1. admit to med surg 2. iv vancomycin, zosyn 3. followup cultures 4. prn analgesics 5. surgery consultation 6. fsbs, ssi 7. heparin gtt - Advance Directives Does patient have a Living Will: No Does patient have a Durable POA for Healthcare: No
--- NOTE | 2024-07-30 00:13 | EDPHYS ---
Physician Documentation [facility] Name: Maik Stock Age: 48 yrs Sex: Male : 1975 Arrival Date: 07/29/2024 Time: 20:46 Bed 20 Private MD: ED Physician Joel Wolf HPI: 07/29 20:52 This 48 yrs old Male presents to ER via Unassigned with complaints of RT sp4 Foot-redness, swelling, pain-Sent by Dr. Murrieta. 07/30 01:42 48-year-old male with history of right foot diabetic ulcer presents from office of Dr. dolores Murrieta for right lower extremity redness tenderness pain and cellulitis. Historical: - Allergies: 07/29 20:55 No Known Allergies; cp4 - PMHx: 20:55 Diabetes - NIDDM; Hypertensive disorder; cp4 - Immunization history:: Adult Immunizations up to date. - Infectious Disease History:: Denies. - Social history:: Smoking status: Patient denies any tobacco usage or history of. - Family history:: not pertinent. ROS: 07/30 01:42 Constitutional: Negative for fever, chills, and weight loss, positive right lower sp4 extremity pain redness tenderness swelling. Positive for chronic right plantar diabetic ulcer. All other systems are negative, Exam: 01:42 Constitutional: This is a well developed, well nourished patient who is awake, alert, sp4 and in no acute distress. Head/Face: Normocephalic, atraumatic. Eyes: Pupils equal round and reactive to light, extra-ocular motions intact. Lids and lashes normal. Conjunctiva and sclera are not injected. Cornea within normal limits. Periorbital areas with no swelling, redness, or edema. ENT: Nares patent. No nasal discharge, no septal abnormalities noted. Tympanic membranes are normal and external auditory canals are clear. Oropharynx with no redness, swelling, or masses, exudates, or evidence of obstruction, uvula midline. Mucous membranes moist. Neck: Trachea midline, no thyromegaly or masses palpated, and no cervical lymphadenopathy. Supple, full range of motion without nuchal rigidity, or vertebral point tenderness. Chest/axilla: Normal chest wall appearance and motion. Nontender with no deformity. No lesions are appreciated. Cardiovascular: Regular rate and rhythm with a normal S1 and S2. No gallops, murmurs, or rubs. Normal PMI, no JVD. No pulse deficits. Respiratory: Lungs have equal breath sounds bilaterally, clear to auscultation and percussion. No rales, rhonchi or wheezes noted. No increased work of breathing, no retractions or nasal flaring. Abdomen/GI: Soft, with normal bowel sounds. No distension or tympany. No guarding or rebound. No evidence of tenderness throughout. Back: No spinal tenderness. No costovertebral tenderness. Skin: Warm, dry with normal turgor. Normal color with no rashes, no lesions, and no evidence of cellulitis. MS/ Extremity: Pulses equal, no cyanosis. Neurovascular intact. Positive for right lower extremity redness tenderness swelling consistent with cellulitis with redness tracking up to the right knee. There is chronic appearing pressure ulcer to the right plantar surface. Signs of chronic purulent drainage from pressure ulcer. Neuro: Awake and alert, GCS 15, oriented to person, place, time, and situation. Cranial nerves II-XII grossly intact. Motor strength 5/5 in all extremities. Sensory grossly intact. Psych: Awake, alert, with orientation to person, place and time. Behavior, mood, and affect are within normal limits Vital Signs: 07/29 20:54 BP 120 / 52; Pulse 47; Resp 18; Temp 97.4; Pulse Ox 100% ; Weight 84.82 kg; Height 5 cp4 ft. 10 in. ; Pain 5/10; 21:00 BP 124 / 70; Pulse 75; Resp 17; Temp 98.2; Pulse Ox 98% on R/A; ay 22:00 BP 113 / 69; Pulse 72; Resp 16; Pulse Ox 98% on R/A; ay 23:00 BP 107 / 71; Pulse 74; Resp 19; Pulse Ox 97% ; ay 20:54 Body Mass Index 26.83 (84.82 kg, 177.8 cm) cp4 20:54 Pain Scale: Adult cp4 [place] Coma Score: 21:00 Eye Response: spontaneous(4). Motor Response: obeys commands(6). Verbal Response: ay oriented(5). Total: . 07/30 01:42 Eye Response: spontaneous(4). Motor Response: obeys commands(6). Verbal Response: sp4 oriented(5). Total: 15. MDM: 07/29 21:55 Medical Screening Exam initiated 4 07/30 00:21 ED course: COMPARISON: 05/25/2024 FINDINGS: Duplex sonography testing of the veins of sp4 the RIGHT lower extremity was performed. There is again noted to be thrombus present in the right femoral vein mid and distal aspect. It appears grossly similar to the 05/25/2024 study. Elsewhere, DVT not seen. IMPRESSION: Thrombus in the mid and distal right femoral vein is grossly similar to comparison study, likely chronic. Elsewhere no DVT seen.. 01:45 Differential diagnosis: sprain, arthritis, gout, cellulitis. Data reviewed: vital sp4 signs, nurses notes, lab test result(s), radiologic studies, ultrasound. Consideration of Admission/Observation Patient was admitted/placed on observation. Escalation of care including admission/observation considered. Management of patient was discussed with the following: Hospitalist: Roc MELARA . Media Consultant Outside Sales: Lit Olivia MD . ED course: Positive for acute onset right lower extremity cellulitis. Patient warrants admission for management and hospital. 07/29 21:34 Order name: CBC with Diff; Complete Time: 00:13 [facility] 07/29 21:34 Order name: CMP; Complete Time: 00:13 [facility] 07/29 21:34 Order name: Lipase; Complete Time: 00:13 4 07/29 21:34 Order name: Urinalysis w/ reflexes; Complete Time: 00:13 4 07/29 21:36 Order name: Blood Culture Adult (2) 4 07/30 00:28 Order name: Urinalysis w/ reflexes EDMS 07/30 00:28 Order name: CBC with Automated Diff EDOH 07/30 00:28 Order name: CBC with Automated Diff EDOH 07/30 00:28 Order name: Comprehensive Metabolic Panel EDOH 07/30 00:28 Order name: Comprehensive Metabolic Panel EDOH 07/30 00:30 Order name: Platelet Count EDOH 07/30 00:30 Order name: Protime (+INR) EDMS 07/30 00:30 Order name: PTT, Activated Partial Thromb EDMS 07/30 00:30 Order name: Platelet Count EDMS 07/30 00:30 Order name: Platelet Count EDOH 07/30 00:30 Order name: Platelet Count EDOH 07/30 00:30 Order name: Platelet Count EDMS 07/30 00:30 Order name: Platelet Count EDMS 07/30 00:30 Order name: Platelet Count EDMS 07/30 00:30 Order name: Platelet Count EDMS 07/30 00:30 Order name: Platelet Count EDMS 07/30 00:30 Order name: PTT, Activated Partial Thromb EDMS 07/30 00:30 Order name: PTT, Activated Partial Thromb EDMS 07/30 00:30 Order name: PTT, Activated Partial Thromb EDMS 07/30 00:30 Order name: PTT, Activated Partial Thromb EDMS 07/30 00:30 Order name: PTT, Activated Partial Thromb EDMS 07/30 08:24 Order name: Glucose, Ancillary Testing EDMS 07/30 12:08 Order name: Ptt, Activated kc6 07/30 12:21 Order name: Glucose, Ancillary Testing EDMS 07/30 12:31 Order name: PTT, Activated Partial Thromb EDMS 07/29 21:36 Order name: Extremity Venous Uni Ltd US; Complete Time: 00:13 sp4 07/30 00:28 Order name: CONS Physician Consult EDOH 07/29 21:34 Order name: IV Saline Lock; Complete Time: 23:33 sp4 07/29 21:34 Order name: Labs collected and sent; Complete Time: 23:33 sp4 07/29 21:36 Order name: Wound Care: Wrap the ulcer with kerlix,; Complete Time: 23:33 sp4 Administered Medications: 07/29 23:19 Drug: vancoMYCIN IVPB 2 grams IVPB at calculated rate once Route: IVPB; Rate: ay calculated rate; Site: [facility]; 07/30 04:31 Follow up: IV Status: Completed infusion; IV Intake: 500ml ay 07/29 23:19 Drug: Piperacillin-Tazobactam IVPB 3.375 grams IVPB once over 60 mins; (mix in NS 100 ay mL) Route: IVPB; Infused Over: 60 mins; Site: [facility]; 07/30 04:32 Follow up: Response: No adverse reaction; IV Status: Completed infusion; IV Intake: ay 100ml 07/29 23:20 Drug: Ondansetron IVP 4 mg IVP once; over 2 minutes Route: IVP; Site: [facility]; ay 07/30 04:31 Follow up: Response: No adverse reaction ay 07/29 23:20 Drug: NS 0.9% IV 1000 ml IV at 1 bolus Per protocol; to be given as a bolus over 60 ay minutes Route: IV; Rate: 1 bolus; Site: PICC; 07/30 04:30 Follow up: Response: No adverse reaction; IV Status: Completed infusion; IV Intake: ay 1000ml Disposition Summary: 07/30/24 00:13 Hospitalization Ordered Notes: Hospitalization Status: Inpatient Admission sp4 Provider: Elise Brian sp4 Condition: Stable sp4 Problem: new sp4 Symptoms: have improved sp4 Bed/Room Type: Standard sp4 Location: Telemetry/MedSurg (observation)(07/30/24 12:54) 6 Room Assignment: [facility](07/30/24 12:54) [facility] Diagnosis - Cellulitis of right lower limb sp4 - Right lower extremity cellulitis, right lower extremity plantar diabetic ulcer with sp4 infection Forms: - Medication Reconciliation Form sp4 - SBAR form sp4 - Leadership Thank You Letter sp4 Signatures: Dispatcher [employer] EDRuba Sosa RN RN kl Woody, Diana, RN RN dw Bradberry, Kelly, RN RN kb3 Norma Giron rv1 Irene Alexander bc6 Joel Wolf MD MD sp4 Potter, Christina 4 Silas Osei RN RN ay Corrections: (The following items were deleted from the chart) 00:17 00:13 Telemetry/MedSurg (Inpatient) sp4 rv1 00:17 00:13 sp4 rv1 05:42 00:17 [facility] ER HOLD rv1 kl 05:42 00:17 ERHOLD- rv1 kl 07:14 05:42 Telemetry/MedSurg (Inpatient) kl dw 07:14 05:42 206 kl dw 07:14 07:14 [facility] ER HOLD dw bc6 07:14 07:14 dw bc6 07:51 07:14 bc6 kb3 12:54 07:14 [facility] ER HOLD bc6 bc6 12:54 07:51 ERHOLD- kb3 bc6
--- NOTE | 2024-07-30 00:13 | ER ---
Nurse's Notes [facility] Name: Maik Stock Age: 48 yrs Sex: Male : 1975 Arrival Date: 07/29/2024 Time: 20:46 Bed 20 Private MD: Diagnosis: Cellulitis of right lower limb;Right lower extremity cellulitis, right lower extremity plantar diabetic ulcer with infection Presentation: 07/29 20:54 Chief complaint: Patient states: right foot infection. Was sent by Dr. Murrieta's cp4 office. Coronavirus screen: Client denies travel out of the [place] in the last 14 days. At this time, the client does not indicate any symptoms associated with coronavirus-19. Ebola Screen: Patient negative for fever greater than or equal to 101.5 degrees Fahrenheit, and additional compatible Ebola Virus Disease symptoms Patient denies exposure to infectious person. Patient denies travel to an Ebola-affected area in the 21 days before illness onset. No symptoms or risks identified at this time. Initial Sepsis Screen: Does the patient meet any 2 criteria? No. Patient's initial sepsis screen is negative. Does the patient have a suspected source of infection? No. Patient's initial sepsis screen is negative. Risk Assessment: Do you want to hurt yourself or someone else? Patient reports no desire to harm self or others. Onset of symptoms is unknown. 20:54 Method Of Arrival: Ambulatory cp4 20:54 Acuity: JACQUE 3 cp4 Triage Assessment: 20:55 General: Appears in no apparent distress. comfortable, Behavior is calm, cooperative, cp4 appropriate for age. Pain: Complains of pain in right foot Pain currently is 5 out of 10 on a pain scale. Historical: - Allergies: 20:55 No Known Allergies; cp4 - PMHx: 20:55 Diabetes - NIDDM; Hypertensive disorder; cp4 - Immunization history:: Adult Immunizations up to date. - Infectious Disease History:: Denies. - Social history:: Smoking status: Patient denies any tobacco usage or history of. - Family history:: not pertinent. Screenin:00 [facility] ED Fall Risk Assessment (Adult) History of falling in the last 3 months, ay including since admission No falls in past 3 months (0 pts) Confusion or Disorientation No (0 pts) Intoxicated or Sedated No (0 pts) Impaired Gait No (0 pts) Mobility Assist Device Used No (0 pt) Altered Elimination No (0 pt) Score/Fall Risk Level 0 - 2 = Low Risk Oriented to surroundings, Maintained a safe environment, Educated pt \T\ family on fall prevention, incl call for assistance when getting out of bed. Abuse screen: Denies threats or abuse. Nutritional screening: No deficits noted. Tuberculosis screening: No symptoms or risk factors identified. Assessment: 21:00 General: Appears in no apparent distress. Behavior is calm, cooperative. Pain: Denies ay pain. Neuro: Level of Consciousness is awake, alert, obeys commands, Oriented to person, place, time, situation, Speech is normal. Cardiovascular: Denies chest pain, nausea, vomiting, Capillary refill < 3 seconds. Respiratory: Airway is patent Respiratory effort is even, unlabored, Respiratory pattern is regular, symmetrical. GI: No signs and/or symptoms were reported involving the gastrointestinal system. : No signs and/or symptoms were reported regarding the genitourinary system. EENT: No signs and/or symptoms were reported regarding the EENT system. Derm: cellulitis on right leg dwyer. Vital Signs: 20:54 BP 120 / 52; Pulse 47; Resp 18; Temp 97.4; Pulse Ox 100% ; Weight 84.82 kg; Height 5 cp4 ft. 10 in. ; Pain 5/10; 21:00 BP 124 / 70; Pulse 75; Resp 17; Temp 98.2; Pulse Ox 98% on R/A; ay 22:00 BP 113 / 69; Pulse 72; Resp 16; Pulse Ox 98% on R/A; ay 23:00 BP 107 / 71; Pulse 74; Resp 19; Pulse Ox 97% ; ay 20:54 Body Mass Index 26.83 (84.82 kg, 177.8 cm) cp4 20:54 Pain Scale: Adult cp4 Laura Coma Score: 21:00 Eye Response: spontaneous(4). Motor Response: obeys commands(6). Verbal Response: ay oriented(5). Total: 15. 07/30 01:42 Eye Response: spontaneous(4). Motor Response: obeys commands(6). Verbal Response: sp4 oriented(5). Total: 15. ED Course: 07/29 20:49 Patient arrived in ED. jj6 20:52 Joel Wolf MD is Attending Physician. sp4 20:55 Triage completed. cp4 20:55 Arm band placed on right wrist. Patient placed in waiting room. cp4 20:55 Patient has correct armband on for positive identification. Bed in low position. Call vc1 light in reach. Pulse ox on. NIBP on. 20:55 Provided Education on: call light. vc1 21:00 Accessed PICC line. ay 22:03 Extremity Venous Uni Ltd US In Process Unspecified. EDMS 22:08 Silas Osei, SUBHASH is Primary Nurse. ay 07/30 00:12 Elise Brian MD is Hospitalizing Provider. sp4 01:00 No provider procedures requiring assistance completed. Patient admitted, IV remains in vc1 place. Administered Medications: 07/29 23:19 Drug: vancoMYCIN IVPB 2 grams IVPB at calculated rate once Route: IVPB; Rate: ay calculated rate; Site: PIC; 07/30 04:31 Follow up: IV Status: Completed infusion; IV Intake: 500ml ay 07/29 23:19 Drug: Piperacillin-Tazobactam IVPB 3.375 grams IVPB once over 60 mins; (mix in NS 100 ay mL) Route: IVPB; Infused Over: 60 mins; Site: PICC; 07/30 04:32 Follow up: Response: No adverse reaction; IV Status: Completed infusion; IV Intake: ay 100ml 07/29 23:20 Drug: Ondansetron IVP 4 mg IVP once; over 2 minutes Route: IVP; Site: PICC; ay 07/30 04:31 Follow up: Response: No adverse reaction ay 07/29 23:20 Drug: NS 0.9% IV 1000 ml IV at 1 bolus Per protocol; to be given as a bolus over 60 ay minutes Route: IV; Rate: 1 bolus; Site: PICC; 07/30 04:30 Follow up: Response: No adverse reaction; IV Status: Completed infusion; IV Intake: ay 1000ml Medication: 01:00 VIS not applicable for this client. vc1 Intake: 04:30 IV: 1000ml; Total: 1000ml. ay 04:31 IV: 500ml; Total: 1500ml. ay 04:32 IV: 100ml; Total: 1600ml. ay Outcome: 00:13 Decision to Hospitalize by Provider. sp4 01:00 Admitted to ER Hold. Please see [facility] for further documentation. vc1 01:00 Condition: stable 01:00 Instructed on the need for admit, 13:41 Patient left the ED. kc6 Signatures: Dispatcher [employer] EDRachele MariejBerta Estrada RN RN vc1 Elke Banks RN RN kc6 Joel Wolf MD MD sp4 Ileana Bynum Awudu RN RN michael
[2024-07-30] MEDS ORDERED: ACETAMINOPHEN 325 MG TABLET PO PRN (00:24)
[2024-07-30] MEDS: NA CHLORIDE 0.9% 1,000 ML IV SCH (01:00)
[2024-07-30] MEDS ORDERED: VANCOMYCIN 1 GM in NA CHLORIDE 0.9% 250 ML IVPB SCH (01:00)
[2024-07-30 01:21] LABS: MPV 7.5 fL (7.6-11.3); Platelets 333 thou/uL (152-406)
[2024-07-30 01:24] LABS: PT Prothrombin Time 14.5 SECONDS (9.4-12.5); PTT, Activated Partial Thromb 24.8 SECONDS (24.3-36.9); Protime INR 1.39
[2024-07-30] MEDS ORDERED: NA CHLORIDE 0.9% 1,000 ML ONE ×2 (03:02→13:30)
[2024-07-30 03:31] VITALS: BMI 26.8
[2024-07-30] MEDS ORDERED: HEPARIN/D5W 25,000 UNIT/500 ML BAG IV ONE (07:37)
[2024-07-30] MEDS: HEPARIN/D5W 25,000 UNIT/500 ML BAG IV PRN (07:55)
[2024-07-30] MEDS ORDERED: PIPERACIL/TAZO 3.375 GM VIAL IV ONE (08:32)
[2024-07-30] MEDS ORDERED: NA CHLORIDE 0.9% 100 ML ONE (08:32)
[2024-07-30] MEDS: PIPER TAZO 3.375 GM in NA CHLORIDE 0.9% 100 ML IV SCH (09:00)
[2024-07-30] MEDS ORDERED: VANCOMYCIN 1.5 GM in NA CHLORIDE 0.9% 500 ML IVPB SCH (12:00)
[2024-07-30] MEDS: VANCOMYCIN 1.5 GM in NA CHLORIDE 0.9% 500 ML IVPB SCH (16:43)
--- NOTE | 2024-07-30 18:16 | CON ---
Date of Consultation: 07/30/2024 Reason For Service: Cellulitis and diabetic foot ulcer. History Of Present Illness: This is a case of a 48-year-old patient known by us and followed [facility] due to cellulitis, nonhealing ulcer, and diabetic ulcer of the right foot. He w as doing great until yesterday as the cellulitis then developed not only in the foot, but also in the lower leg at least to proximal tibial region. It is swollen. It is red. I advised the patient to be admitted to the hospital. He had to take care of his son and he was promising he was going to be back last night for admission. The patient was admitted to the Medical Service and a surgical consul t was obtained. Allergies: NONE. Medical Problems: Diabetes, hypertension, multiple admissions for cellulitis and infected diabetic u lcer. Social History: He does not smoke. He does not drink alcohol. Family History: Noncontributory. Medications: Reviewed. Review of Systems: Swelling of the right leg with tenderness and redness and diabetic ulcer. 10 points otherwise unrema rkable. I have to mention that patient just finished antibiotics for osteomyelitis of the right foot region several days ago. He still has a PICC line in place. Apparently, he was receiving a cephalo sporin by the Infectious Disease doctor. Physical Examination: Vital Signs: Reviewed. General: The patient is awake and alert. HEENT: Pupils are equal and reactive. Anicteric. Neck: Supple. Chest: Clear. Heart: S1, S2. Abdomen: Soft and depressible. Nontender. Nondistended. Bowel sounds positive. Extremities: On the right lower extremity, patient has swelling from the proximal leg all the way do wn to the foot area. There is a pressure ulcer on the bottom of the foot. This had been clean at [facility] previously. The swelling, although has no Homans signs, did have some pitting edema and redness and this is new for him. The patient has history of neuropathy. Laboratory Data: Blood work shows a WBC count of 7.7, hemoglobin of 10.7, and potassium is 4.1. Elio ous Doppler shows thrombus in the mid and distal right femoral vein, likely chronic. Assessment: This is 48-year-old patient with history of osteomyelitis of the right foot diabetic [facility] er, deep vein thrombosis, and also a new findings of cellulitis not only of the foot, but also the le g region with increased in size, erythema and discomfort and tenderness and temperature. So I agree with the admission. From the surgical standpoint, we will be taking care of the wound. We have been using on him Hydrofera Blue. We will see what the hospital has available. In the meantime, we can do wet-to-dry and we recommended to the patient to be seen once again by Infectious Disease and he boswell s been treated for the last few weeks by them. Leg elevation. Anticoagulation per Primary doctor. I will follow the patient with you. NOHEMI/RAFAEL Voice ID: [id number] Report ID: [id number]
--- NOTE | 2024-07-30 18:59 | P.PN ---
Subjective Date of Service: 07/30/24 Chief Complaint: diabetic foot ulcer Patient denies any complaint. No recorded fever. Physical Examination - Vital Signs Temperature: 97.5 F Blood Pressure: 136/68 Pulse: 71 Respirations: 15 Pulse Ox (%): 98 - Studies Laboratory Data (last 24 hrs) 07/29/24 07/29/24 22:45 22:45 WBC 7.70 Hgb 10.7 L Hct 31.6 L Plt Count 371 Sodium 135 L Potassium 4.1 BUN 22 H Creatinine 1.20 Glucose 159 H Total Bilirubin 0.4 AST 16 ALT 31 Alkaline Phosphatase 111 Lipase 23 Assessment And Plan - Plan Physical examination General: Alert and oriented x3, NAD, HEENT: Conjunctiva not pale, anicteric sclera Neck: Supple, no elevated JVD Heart: Heart sounds 1 and 2 normal, regular rhythm, normal rate, no pedal edema Lungs: Clear to auscultation bilaterally, adequate breath sounds bilaterally, no rhonchi or crackles. Abdomen: Soft, nondistended, nontender, normal bowel sounds. Extremities: No tenderness, no deformity Skin: Normal skin turgor, Ulcer at the sole of the right foot. Leg erythema significantly improved. Neuro: No focal motor deficit. Normal speech. Psychiatry: Normal mood, no agitation. Diagnosis Diabetic foot ulcer Lower extremity cellulitis History of DVT Diabetes Hypertension. Plan: Diabetic foot ulcer Lower extremity cellulitis Lower extremity erythema significantly improved. Continue current antibiotics History of osteomyelitis General Surgery Dr. Murrieta evaluated patient and he is following. Follow blood cultures History of DVT Continue heparin drip. Diabetes mellitus type 2 Insulin sliding scale for glucose management. Hold Lantus insulin for now given fingerstick glucose less than 100. Essential hypertension Continue home medications. DVT prophylaxis: Patient is on heparin drip.
[2024-07-31 05:15] LABS: Absolute Basophils 0.1 K/uL (0-0.5); Absolute Eosinophils 0.2 K/uL (0-0.5); Absolute Lymphocytes (CBC) 1.9 K/uL (0.7-4.9); Absolute Monocytes 0.3 K/uL (0.1-1.3); Absolute Neutrophil 1.9 K/uL (1.8-8.0); Basophils % 1.6 % (0-1.3); Eosinophils % 3.9 % (0-4.4); Hemoglobin 10.4 g/dL (13.6-17.9); Lymphocytes % 44.2 % (15.3-44.8); MCH 29.9 pg (27.0-35.0); MCHC 33.7 g/dL (32.0-36.0); MCV 88.7 fL (80-100); MPV 7.7 fL (7.6-11.3); Monocytes % 7.2 % (3.3-12.3); Neutrophils % 43.1 % (41.7-73.7); Platelets 368 thou/uL (152-406); Red Cell Distribution Width 13.2 % (12.1-15.2)
[2024-07-31 05:31] LABS: ALT/SGPT 24 U/L (16-61); Albumin 2.6 g/dL (3.4-5.0); Albumin/Globulin Ratio 0.6 (1.1-1.8); Alkaline Phosphatase 89 U/L (45-117); BUN Blood Urea Nitrogen 13 mg/dL (7-18); Bicarbonate 29 mEq/L (21-32); Bilirubin Total 0.6 mg/dL (0.2-1.0); Globulin 4.2 g/dL (2.3-3.5); Glomerular Filtration Rate 105 ml/min (=/>90); Glucose Level 126 mg/dL (74-106); Protein, Total 6.8 g/dL (6.4-8.2); Sodium Level 140 mEq/L (136-145)
[2024-07-31 05:35] LABS: AST/SGOT < 10 U/L (15-37)
[2024-07-31] MEDS: HOME MED 1 EA UNK (Dapagliflozin Propanediol [Farxiga] 10 MG Tablet) PO SCH (09:00)
[2024-07-31] MEDS: METOPROLOL XL 25 MG TAB PO SCH (09:25)
[2024-07-31] MEDS: ATORVASTATIN 40 MG TAB PO SCH (09:25)
[2024-07-31 10:44] LABS: Specific Gravity 1.009 (1.005-1.030); Urine Bilirubin NEGATIVE (Negative); Urine Blood Negative (Negative); Urine Clarity Clear (Clear); Urine Color Colorless (Yellow); Urine Glucose 3+ (Negative); Urine Ketones NEGATIVE (Negative); Urine Microscopic Reflex YN NO UMIC; Urine Nitrite NEGATIVE (Negative); Urine Protein NEGATIVE (Negative); Urine Urobilinogen Normal (Normal); Urine pH 7.5 (5.0-7.0)
--- NOTE | 2024-07-31 14:47 | PN ---
Date of Progress Note: 07/31/2024 Reason For Service: Diabetic foot ulcer and cellulitis of the leg. History Of Present Illness: This is the case of a 48-year-old patient known by us in the Wound [facility] due to chronic treatment for diabetic ulcer, but we noticed that even on IV antibiotics, he developed cellulitis of the leg, so he was admitted on antibiotics for failure of outpatient treatme nt. The patient feels better. No shortness of breath. No chest pain. No fever. Physical Examination: Chest: Clear. Abdomen: Soft and depressible. Extremities: Good capillary refill. The leg looks a lot better, less swelling. No Homans sign. Ce llulitis is decreased. His foot ulcer also looks airplane cleaner with no purulent discharge. Plan: Continue antibiotics per Infectious Disease. We put the orders for wound care. Offloading, d iabetes control. When he gets discharged, we would like to see the patient in the Wound Healing [facility] er again. NOHEMI/RAFAEL Voice ID: [id number] Report ID: [id number]
--- NOTE | 2024-07-31 15:02 | P.PN ---
Date of Service: 07/31/24 Subjective Awake, no new complaints continue IV antibiotics Request HH with SN and home IV antibiotics ROS 10 point ROS as noted above, otherwise negative Physical examination General: AAO x3, NAD, HEENT: Conjunctiva not pale, anicteric sclera Neck: Supple, no elevated JVD Heart: S1 and S2 normal, RRR, no pedal edema Lungs: Clear BBS, adequate breath sounds bilaterally, on RA Abdomen: Soft, nondistended, and nontender on palpation, normal bowel sounds. Extremities: No tenderness, no deformity Skin: Normal skin turgor, Ulcer at the sole of the right foot. Leg erythema significantly improved. Neuro: No focal motor deficit. Normal speech. Psychiatry: Normal mood, no agitation. Vitals Reviewed Problem list Diabetic foot ulcer Lower extremity cellulitis History of DVT Diabetes Hypertension. Assessment and Plan Diabetic foot ulcer Lower extremity cellulitis Lower extremity erythema significantly improved. Continue current antibiotics History of osteomyelitis General Surgery Dr. Murrieta evaluated patient and he is following. Follow blood cultures History of DVT Continue heparin drip Right Lower extremity venous doppler reports "Thrombus in the mid and distal right femoral vein is grossly similar to comparison study, likely chronic. Elsewhere no DVT seen." Diabetes mellitus type 2 Insulin sliding scale for glucose management. Hold Lantus insulin for now given fingerstick glucose less than 100. Essential hypertension Continue home medications. Interval hospital course 07/31/24 -Dr. Jay recommends vanc and rocephin for 14 days -Midline ordered, Dr. Jay will follow [facility] -Home health with [facility] requested -Right Plantar Foot- Cleanse wound with Vashe. Apply Vashe moistened gauze, dry gauze, kerlix and yogi wrap ( from base of toes to 2" below knee) daily. DVT prophylaxis: Patient is on heparin drip.
[2024-07-31 15:04] VITALS: O2SAT 97
[2024-07-31] MEDS: Mupirocin NASAL 2 APPL/1 GM TUBE NAS SCH (20:30)
[2024-07-31] MEDS: INSULIN REGULAR (HUMAN) 100 UNIT/ML SQ SCH (21:22)
[2024-08-01 06:17] LABS: MPV 7.5 fL (7.6-11.3); Platelets 376 thou/uL (152-406)
[2024-08-01] MEDS: CEFTRIAXONE 1,000 MG in NA CHLORIDE 0.9% 50 ML IVPB SCH (08:21)
[2024-08-01 12:53] VITALS: TEMP 98.1
--- NOTE | 2024-08-01 13:36 | P.PN ---
Subjective Date of Service: 08/01/24 Chief Complaint: diabetic foot ulcer Patient has no new complaint No recorded fever. He has good oral intake. Physical Examination - Vital Signs Temperature: 98.1 F Blood Pressure: 123/68 Pulse: 66 Respirations: 14 Pulse Ox (%): 97 Assessment And Plan - Plan Physical examination General: Alert and oriented x3, NAD, Heart: Heart sounds 1 and 2 normal, regular rhythm, normal rate, no pedal edema Lungs: Clear to auscultation bilaterally, adequate breath sounds bilaterally, no rhonchi or crackles. Abdomen: Soft, nondistended, nontender, normal bowel sounds. Extremities: No tenderness, no deformity Skin: Normal skin turgor, Ulcer at the sole of the right foot. Leg erythema resolved. Neuro: No focal motor deficit. Normal speech. Psychiatry: Normal mood, no agitation. Diagnosis Diabetic foot ulcer Lower extremity cellulitis History of DVT Diabetes Hypertension. Plan: Diabetic foot ulcer Lower extremity cellulitis Lower extremity erythema significantly improved. Continue current antibiotics History of osteomyelitis General Surgery Dr. Murrieta evaluated patient and he is following. Follow blood cultures History of DVT Continue heparin drip. Diabetes mellitus type 2 Insulin sliding scale for glucose management. Hold Lantus insulin for now given fingerstick glucose less than 100. Essential hypertension Continue home medications. 08/01 Leg erythema resolved. Cellulitis has responded well to the current antibiotics. Dr. Murrieta input appreciated. Continue local wound care. Patient had 2 more days to complete IV Rocephin at home prior to admission Case discussed with infectious disease Dr. Jay who recommend to extend home antibiotic treatment for 2 more weeks and with IV Rocephin and vancomycin. Social service assisting with outpatient IV antibiotics arrangement. Eliquis for DVT. Discontinue heparin drip. DVT prophylaxis: Eliquis.
--- NOTE | 2024-08-01 15:54 | P.DS ---
Admission Date: 07/30/24 Discharge Date: 08/01/24 Disposition: [place] [facility]/HOME HEALTH CARE Discharge Condition: FAIR Reason for Admission: diabetic foot ulcer Brief History of Present Illness: 48-year-old male with history of diabetes, diabetic foot ulcer presents to the ER with complaints of progressive right foot ulcer and redness. History of previous foot infection. History of toe amputation. He has a PICC line in his right arm and patient has been receiving IV Rocephin at home. He has been dealing with foot ulcer with surgery. Patient reports symptoms have progressed. Despite receiving antibiotics. It is noted that he had a thrombus in the mid and distal right femoral vein. Patient was admitted for further management. Hospital Course: Diagnosis Diabetic foot ulcer Lower extremity cellulitis History of DVT Diabetes Hypertension. Patient admitted to the medical floor and the following medical problems addressed Diabetic foot ulcer Lower extremity cellulitis Lower extremity erythema significantly improved with IV antibiotics History of osteomyelitis. Patient had 2 days left to complete 6 weeks of IV Rocephin at home. General Surgery Dr. Murrieta evaluated patient and recommended antibiotics, no surgery. Blood cultures yielded no growth. Case discussed with infectious disease who recommended to extend antibiotic duration for another couple of weeks and to add vancomycin to the Rocephin he was getting. Patient has a PICC line in place. IV antibiotics arranged with home health. He is informed to follow-up with Dr. Murrieta at the wound care clinic next week. History of DVT Patient treated with heparin drip and transition to oral Eliquis. Diabetes mellitus type 2 Managed with insulin sliding scale for glucose management as inpatient. Resume home diabetes regimen-Lantus and semaglutide and metformin on discharge. Essential hypertension Continued home medications. Vital Signs/Physical Exam: Temp Pulse Resp BP Pulse Ox 98.1 F 66 14 123/68 97 08/01/24 13:56 08/01/24 13:56 08/01/24 13:56 08/01/24 13:56 08/01/24 13:56 General: Alert, In no apparent distress Neck: Supple, JVD not distended Respiratory: Clear to auscultation bilaterally, Normal air movement Cardiovascular: No edema, Regular rate/rhythm, Normal S1 S2 Gastrointestinal: Soft and benign, Non-distended Musculoskeletal: No tenderness Integumentary: Other (Ulcer-lateral edge of sole of right foot.) Neurological: Normal speech, Normal strength at 5/5 x4 extr Laboratory Data at Discharge: WBC 4.40 thou/uL (4.3-10.9) 07/31/24 04:21 Hgb 10.4 g/dL (13.6-17.9) L 07/31/24 04:21 Hct 31.0 % (39.6-49.0) L 07/31/24 04:21 Plt Count 376 thou/uL (152-406) 08/01/24 05:51 PT 14.5 SECONDS (9.4-12.5) H 07/30/24 01:00 INR 1.39 07/30/24 01:00 APTT 58.6 SECONDS (24.3-36.9) H 08/01/24 06:58 Sodium 140 mEq/L (136-145) 07/31/24 04:21 Potassium 4.0 mEq/L (3.5-5.1) 07/31/24 04:21 BUN 13 mg/dL (7-18) 07/31/24 04:21 Creatinine 0.88 mg/dL (0.70-1.30) 07/31/24 04:21 Glucose 126 mg/dL (74-106) H 07/31/24 04:21 Total Bilirubin 0.6 mg/dL (0.2-1.0) 07/31/24 04:21 AST < 10 U/L (15-37) L 07/31/24 04:21 ALT 24 U/L (16-61) 07/31/24 04:21 Alkaline Phosphatase 89 U/L (45-117) 07/31/24 04:21 Lipase 23 U/L (13-75) 07/29/24 22:45 Home Medications: Metformin HCl [Metformin ER Osmotic] 1,000 mg PO BID 02/06/17 Insulin Glargine,Hum.rec.anlog [Lantus] 35 units SQ BEDTIME 09/05/20 Atorvastatin Calcium 40 mg PO DAILY 10/24/21 Dapagliflozin Propanediol [Farxiga] 10 mg PO DAILY 10/24/21 Metoprolol Succinate 25 mg PO DAILY 02/04/24 Semaglutide [Ozempic] 2 mg SQ EVERY 7TH DAY 02/04/24 Apixaban [Eliquis] 5 mg PO BID #74 tab 08/01/24 Mupirocin Calcium [Bactroban Nasal*] 1 appl VILLA BID #1 tube 08/01/24 New Medications: Mupirocin Calcium [Bactroban Nasal*] 1 appl VILLA BID #1 tube Apixaban [Eliquis] 5 mg PO BID #74 tab Physician Discharge Instructions: Wound care instructions: Left Plantar Foot- Cleanse wound with Vashe. Apply Vashe moistened gauze, dry gauze, kerlix and yogi wrap ( from base of toes to 2" below knee) daily. Diet: ADA Activity: Non-weight bearing (Right foot) Followup: Shakir Murrieta MD [ACTIVE - CAN ADMIT] - 1 Week ([facility]ound healing center) Vaishali Todd NP [Primary Care Provider] - 1-2 Weeks Time spent managing pt's care (in minutes): 32
[2024-08-01 16:52] VITALS: BP 158/83
[2024-08-01] MEDS ORDERED: APIXABAN 5 MG TABLET PO SCH (21:00)
--- NOTE | 2024-08-03 12:17 | EKG ---
Test Date: 2024-07-30 Test Time: 13:05:06 Ceramic Design Engineer: LINDA MEASUREMENT RESULTS: Intervals: Rate: 82 MO: 170 QRSD: 92 QT: 390 QTc: 455 [place]: P: 58 MO: 170 QRS: 133 T: 45 INTERPRETIVE STATEMENTS: Sinus rhythm with frequent premature ventricular complexes Otherwise normal ECG Compared to ECG 06/21/2024 17:02:20 ST (T wave) deviation no longer present Electronically Signed On 08-03-24 12:12:43 MICROBIOLOGY COORDINATOR by Abrahan Grant
== END 2024-08-01 17:06 | disposition home health service (06) | DRG 638 ==
LOC: ER 20:46 → ERHOLD 07-30 00:24 → 2ND 07-30 13:36
PROVIDERS: ADMIT Internal Medicine; ATTEND Internal Medicine
PROC: 02HV33Z Insertion of Infusion Device into Superior Vena Cava, Percutaneous Approach (ICD-10-PCS; principal; 2024-07-31)
DX: E11.621 Type 2 diabetes mellitus with foot ulcer (principal); L03.115 Cellulitis of right lower limb; I82.511 Chronic embolism and thrombosis of right femoral vein; L97.519 Non-pressure chronic ulcer of other part of right foot with unspecified severity; I10 Essential (primary) hypertension; E11.40 Type 2 diabetes mellitus with diabetic neuropathy, unspecified; Z79.4 Long term (current) use of insulin; Z79.01 Long term (current) use of anticoagulants; Z79.84 Long term (current) use of oral hypoglycemic drugs; Z79.85 Long-term (current) use of injectable non-insulin antidiabetic drugs; Z96.651 Presence of right artificial knee joint; Z89.411 Acquired absence of right great toe; Z79.899 Other long term (current) drug therapy
CPT/HCPCS: 36415; 80053; 80202; 81001; 81003; 82947; 83690; 85025; 85049; 85610; 85730; 87040; 93005; 93971; 96365; 96366; 96368; 96375; 99285; J0696; J2405; J2543; J7030; J7040; J7050